=== PATIENT | male | born 1965 | race Caucasian/White ===

== ENCOUNTER 2020-04-05 15:32 | Outpatient (REF) | payer MEDICAID, SELFPAY | END 2020-04-05 15:33 | disposition home or self-care (01) | LOC: HO.LAB 15:32 | PROVIDERS: PCP Internal Medicine; Visit Provider Internal Medicine | DX: Z20.828 Contact with and (suspected) exposure to other viral communicable diseases (principal) | CPT/HCPCS: C9803; U0003 ==

== ENCOUNTER 2020-04-10 10:27 | Inpatient (IN) | payer MEDICAID, SELFPAY ==
[2020-04-10] VITALS (10 sets, daily range): BP systolic 120–149; BP diastolic 67–95; PULSE 84–98; RESP 14–18; TEMP 36.9–37.4; O2SAT 96–100; BMI 22.4
--- NOTE | 2020-04-10 10:55 | ECG_ITS ---
Test Reason : WEAKNESS Blood Pressure : / mmHG Vent. Rate : 086 BPM Atrial Rate : 086 BPM P-R Int : 174 ms QRS Dur : 100 ms QT Int : 406 ms P-R-T Axes : 071 -15 052 degrees QTc Int : 485 ms Normal sinus rhythm Left axis deviation Nonspecific T wave abnormality Low voltage QRS Abnormal ECG When compared with ECG of 24-MAY-2018 01:26, Heart rate has decreased Nonspecific T wave abnormality is new Referred By: John Landin Electronically Signed By:BEVERLEY SNOWDEN MD
--- NOTE | 2020-04-10 10:56 | CT_ITS ---
EXAMINATION: CT ABDOMEN AND PELVIS WITH CONTRAST CLINICAL INFORMATION: Abdominal pain, renal impairment. COMPARISON: CT scan of the pelvis dated 06/17/2019. TECHNIQUE: Multidetector volumetric images were obtained from the superior aspect of the liver through the pubic symphysis following administration 85 mL of Omnipaque 350 intravenous contrast. Sagittal and coronal reformatted images were obtained on the technologist's workstation. Oral contrast: No This CT examination was performed using dose optimization techniques as appropriate, variously including the following: *Automated exposure control *Adjustment of mA and/or kV according to patient size (this includes techniques or standardized protocols for targeted exams where dose is matched to indication/reason for exam; i.e. extremities or head) *Use of iterative reconstruction technique DLP: 626 mGy-cm FINDINGS: LUNG BASES: Clear lung bases. No pericardial or pleural effusions. LIVER, GALLBLADDER, AND BILIARY TREE: Diffuse decreased attenuation is seen with probable sparing posteriorly in the left lobe. Unremarkable gallbladder. PANCREAS: Unremarkable. SPLEEN: 13.7 cm without focal abnormality (image 118, series 5). ADRENAL GLANDS: Unremarkable. KIDNEYS AND URETERS: Several nonobstructing intrarenal calculi are seen bilaterally. No hydroureteronephrosis. BLADDER: Unremarkable. GASTROINTESTINAL TRACT: There is a small hiatal hernia. The remainder of the stomach is unremarkable. The small bowel and appendix are unremarkable. Moderate diverticulosis is seen in the sigmoid colon without surrounding abnormality. PERITONEUM: Moderate peritoneal ascites. ABDOMINAL WALL: No significant hernia is appreciated. LYMPH NODES: Multiple mildly enlarged retroperitoneal lymph nodes are seen. 2 infrarenal anterior aortocaval lymph nodes both measure 0.9 cm in short axis (image 95, series 5). VASCULAR: Mild atherosclerosis without significant ectasia. PELVIC VISCERA: Unremarkable. OSSEOUS STRUCTURES: No suspicious abnormality. CT/CT abdomen pelvis w con IMPRESSION: 1. Interval development of moderate peritoneal ascites. 2. Hepatic steatosis with probable focal sparing in the left lobe posteriorly. 3. Borderline splenic enlargement. 4. Several nonobstructing adrenal calculi bilaterally. 5. Mildly enlarged retroperitoneal lymphadenopathy is nonspecific, but may be reactive. No other causative abnormality is identified. 6. Moderate sigmoid diverticulosis without evidence for acute diverticulitis.
[2020-04-10] MEDS: ondansetron HCL 4 MG/2 ML VIAL IVPUSH (11:42)
[2020-04-10] MEDS: 0.9 % Sodium Chloride 500 ML 1000 ML IV (11:42)
[2020-04-10 11:43] LABS: Basophils Percent Auto 0.5 % (0-2); Eosinophils Percent Auto 0.5 % (0-4); Hematocrit 34.1 % (42-52); Hemoglobin 12.4 g/dl (14.0-18.0); Imm Gran Abs Auto 0.04 X10*3/uL (0.00-0.03); Imm Gran Pct Auto 0.5 % (0.0-0.4); Lymphocytes Absolute Auto 0.8 X10*3/uL (1.2-4.9); Lymphocytes Percent Auto 9.8 % (20-40); Mean Corpuscular HGB Conc 36.4 g/dl (31.0-36.0); Mean Corpuscular Hemoglobin 37.7 pg (27.0-33.0); Mean Corpuscular Volume 103.6 fL (80-98); Mean Platelet Volume 10.2 fL (9.4-12.4); Monocytes Percent Auto 13.3 % (2-11); Neutrophils Absolute Auto 5.8 X10*3/uL (2.0-8.3); Neutrophils Percent Auto 75.4 % (45-73); Platelet Count 236 X10*3/uL (160-400); Red Blood Count 3.29 X10*6/uL (4.60-5.80); Red Cell Distribution Width 13.3 % (11.0-16.0); White Blood Count 7.7 X10*3/uL (4.8-10.8)
--- NOTE | 2020-04-10 11:43 | PC.NURSE ---
PT'S MEDS SCANNED WHEN GIVEN. DID NOT SAVE
[2020-04-10 11:44] LABS: MANUAL DIFF FLAG NO
[2020-04-10 12:03] LABS: Lactic Acid 1.7 mmol/L (0.5-2.0)
[2020-04-10 12:11] LABS: Troponin-I High Sensitivity < 3.5 ng/L (<3.5-35.0)
[2020-04-10 12:32] LABS: INTERNATIONAL NORM RATIO 1.4 (0.9-1.1); Prothrombin Time 16.6 SEC (10.8-13.0)
[2020-04-10 12:34] LABS: Influenza A PCR NEGATIVE (Negative); Influenza B PCR NEGATIVE (Negative); Resp Syncy Virus RNA Qual PCR NEGATIVE (Negative); SARS COV2 PCR INHOUSE NEGATIVE (Negative)
[2020-04-10 12:35] LABS: Partial Thromboplastin Time 32.4 SEC (24.1-38.0)
[2020-04-10 12:46] LABS: Ethanol < 10 mg/dL
[2020-04-10 13:26] LABS: Alanine Aminotransferase 93 U/L (0-40); Albumin Level 2.6 g/dL (3.5-5.0); Alkaline Phosphatase 297 U/L (39-117); Anion Gap 12 (12-20); Aspartate Amino Transferase 243 U/L (5-37); Bilirubin Direct 9.9 mg/dL (0.0-0.5); Bilirubin Total 12.7 mg/dL (0.0-1.0); Blood Urea Nitrogen 6 mg/dL (9-16); Calcium 7.5 mg/dL (8.4-10.2); Carbon Dioxide 25 mmol/L (22-29); Chloride 96 mmol/L (96-108); Creatinine Clr Calc Pharmacy 130.9; Estimated Glomerular Filt Rate > 60; Glucose Random 95 mg/dL (60-115); Lipase 15 U/L (8-78); Potassium 3.1 mmol/l (3.3-5.1); Sodium 130 mmol/L (135-145); Total Protein 5.4 g/dL (6.5-8.0)
--- NOTE | 2020-04-10 14:02 | XR_ITS ---
EXAMINATION: XR CHEST CLINICAL INFORMATION: Shortness of breath COMPARISON: Previous chest x-ray March 2018 TECHNIQUE: Frontal view of the chest was obtained. FINDINGS: The cardiac and mediastinal contours are normal. The lungs are clear. There is no pleural effusion or pneumothorax. There may be old left anterior sixth and seventh rib fractures. XR/XR chest 1V IMPRESSION: No evidence for acute disease in the chest.
[2020-04-10] MEDS: iohexoL 350 MG/ML 100 ML INFUS..BTL IV (14:49)
[2020-04-10 16:51] LABS: B Type Natriuretic Peptide 105 pg/mL (<100)
--- NOTE | 2020-04-10 16:51 | ED.SOB ---
HPI - SOB/Dyspnea General Chief Complaint: Dyspnea Stated Complaint: difficulty breathing, vomiting Time Seen by Provider: 04/10/20 10:55 Source: patient Mode of arrival: ambulatory Limitations: no limitations History of Present Illness HPI Narrative: This is a 55-year-old male who presents ambulatory via triage but according to him he has no significant medical problems and his sheets complaint today is ongoing shortness of breath for the past 10 days or so with abdominal distension. In review of his EMR it appears that he has extensive history including history of PE in the past for which he was on Lovenox for, prothrombin G2 0210 a +ve, depression, alcohol dependence with continued alcohol use. He reports his last drink was five days ago and drinks 2 cups of wine He denies any chest pain. He does appear to be jaundice and distended abdomen. MD elicited complaint: shortness of breath Associated symptoms: denies other symptoms Treatment prior to arrival: none Related Data Allergies Allergy/AdvReac Type Severity Reaction Status Date / Time No Known Allergies Allergy Verified 04/10/20 10:48 [No Known Allergies*] Review of Systems Review of Systems: Constitutional: No Weight loss, No Fever, No Chills, No Night Sweats, No Fatigue, No Malaise ENT/Mouth: No Hearing loss, No Ear Pain, No Nasal Congestion, No Sinus Pain, No Hoarseness, No sore throat, No Rhinorrhea, No Swallowing Difficulty Eyes: No Eye Pain, No Swelling, No Redness, No Foreign Body, No Discharge, No Vision Changes Cardiovascular: No Chest Pain, No SOB, No Dyspnea on Exertion, No Orthopnea, No Edema, No Palpitations Respiratory: No Cough, No Sputum, No Wheezing, No Smoke Exposure, No Dyspnea Gastrointestinal: No Nausea, No Vomiting, No Diarrhea, No Constipation, + abdominal Pain, No Hematochezia, No Melena Genitourinary: no irregular bleeding, No Dysuria, No Urinary Frequency, No Hematuria, No Urinary Incontinence, No Urgency, No Flank Pain, No Urinary Flow Changes, No Hesitancy Musculoskeletal: No joint pain, No Myalgias, No Joint Swelling Skin: No Skin Lesions, No rash Neuro: No Weakness, No Numbness, No Paresthesias, No Loss of Consciousness, No Dizziness, No Headache Psych: No Anxiety/Panic, No Depression, No SI/HI/AH/VH, No Social Issues Heme/Lymph: No Bruising, No Bleeding,No Lymphadenopathy Endocrine: No Polyuria, No Polydipsia, No Temperature Intolerance Yes all other systems are reviewed and are negative [facility] Past Medical History Medical History (Updated 04/10/20 @ 17:33 by John Landin NP) No known health problems Social History Social History Alcohol intake: current Alcohol intake frequency: 3 or more drinks per day Smoking Status: Never smoker Use of substances other than those prescribed or required for medical reasons: No Advance Directives: No Advance Directives Information Provided: Yes Physical Exam Vital Signs: Vital Signs: Last Vital Signs Temp 99.2 F 04/10/20 15:50 Pulse 98 04/10/20 15:50 Resp 16 04/10/20 15:50 BP 149/95 H 04/10/20 15:50 Pulse Ox 99 04/10/20 15:50 Body Mass Index 22.4 Reviewed Const: General: cooperative and healthy appearing; No acute distress or intoxicated appearing Nutritional Appearance: average body habitus Orientation/consciousness: patient oriented x3 HENMT: Head: Yes normal to inspection Ears: hearing grossly normal bilaterally Eyes: Other: Jaundice General: appearance normal, both eyes and all related structures Visual Allison: normal visual allison by confrontation Neck: Neck: Yes normal visual inspection, No positive Brudzinski's sign, No positive Kernig's sign and No tender Thyroid: Thyroid normal Chest: Chest palpation & inspection: normal inspection of the chest Resp: Effort & Inspection: normal respiratory effort Auscultation: clear to auscultation bilaterally Cardio: Jugular venous distension: no JVD Rate: regular rate GI: Inspection: Yes distended Palpation (GI): nontender Percussion: Yes normal to percussion Auscultation: normal bowel sounds : General: Yes no CVA tenderness Back/Spine/Pelvis: Back: no CVA tenderness Skin: Other: Jaundice General skin exam: no rashes or lesions noted Neuro: General: patient oriented x3 Extrem: General: Yes normal to inspection Course Course Course Narrative: Labs consistent with acute alcoholic hepatitis significantly worsening from previous labs. Abdomen distended no pain or evidence of peritonitis. I do not suspect SBP. Given the significance in labs and bedside ultrasound guided paracentesis was done please refer to procedure note. Patient will be empirically covered for SBP however labs are not indicative this as he has no WBC count, no fever or exam consistent with peritonitis. Case discussed with GI, and hospitalist for admission. Procedures Paracentesis Time Out Performed: Yes Indication: Ascites Procedure: diagnostic paracentesis Location: RLQ Local Anesthetic: lidocaine 1% Amount of anesthesia used (mL): 10 Bedside Ultrasound Used: yes, real-time guidance Preparation: sterile prep and drape Fluid: clear Post Procedure Exam: awake, alert Complications: none MDM - SOB/Dyspnea Medical Records Attestation: I reviewed the patient's medical records. Lab Data Attestation: I reviewed the patient's lab results. Result diagrams: 04/10/20 11:32 04/10/20 12:20 Labs: Lab Results 04/10/20 04/10/20 04/10/20 Range/Units 11:31 11:31 11:32 WBC 7.7 (4.8-10.8) X10*3/uL RBC 3.29 L (4.60-5.80) X10*6/uL Hgb 12.4 L (14.0-18.0) g/dl Hct 34.1 L (42-52) % MCV 103.6 H (80-98) fL MCH 37.7 H (27.0-33.0) pg MCHC 36.4 H (31.0-36.0) g/dl RDW 13.3 (11.0-16.0) % Plt Count 236 (160-400) X10*3/uL MPV 10.2 (9.4-12.4) fL Immature Gran % (Auto) 0.5 H (0.0-0.4) % Neut % (Auto) 75.4 H (45-73) % Lymph % (Auto) 9.8 L (20-40) % [place] % (Auto) 13.3 H (2-11) % Eos % (Auto) 0.5 (0-4) % Baso % (Auto) 0.5 (0-2) % Lymph # (Auto) 0.8 L (1.2-4.9) X10*3/uL [place] # (Auto) 1.0 (0.1-1.2) X10*3/uL Eos # (Auto) 0.0 (0.0-0.4) X10*3/uL Baso # (Auto) 0.0 (0.0-0.2) X10*3/uL Abs Immat Gran (auto) 0.04 H (0.00-0.03) X10*3/uL Absolute Neuts (auto) 5.8 (2.0-8.3) X10*3/uL Absolute Nucleated RBC 0.000 (0.0-0.012) X10*3/uL Nucleated RBC % (auto) 0.0 (0.0-0.2) /100WBC PT INR APTT Sodium (135-145) mmol/L Potassium (3.3-5.1) mmol/l Chloride (96-108) mmol/L Carbon Dioxide (22-29) mmol/L Anion Gap (12-20) BUN (9-16) mg/dL Creatinine (0.5-1.4) mg/dL Estim Creat Clear Calc Estimated GFR Random Glucose (60-115) mg/dL Lactic Acid (0.5-2.0) mmol/L Calcium (8.4-10.2) mg/dL Total Bilirubin (0.0-1.0) mg/dL Direct Bilirubin (0.0-0.5) mg/dL AST (5-37) U/L ALT (0-40) U/L Alkaline Phosphatase (39-117) U/L Troponin I High Sens (<3.5-35.0) ng/L B-Natriuretic Peptide (<100) pg/mL Total Protein (6.5-8.0) g/dL Albumin (3.5-5.0) g/dL Lipase (8-78) U/L Ethyl Alcohol Cancelled Coronavirus (PCR) NEGATIVE (Negative) Hepatitis A IgM Ab Hep Bs Antigen Hep Bs Antibody Hep B Core Total Ab Hepatitis C Ab (EIA) Influenza Type A (PCR) NEGATIVE (Negative) Influenza Type B (PCR) NEGATIVE (Negative) RSV RNA Qual (PCR) NEGATIVE (Negative) 04/10/20 04/10/20 04/10/20 Range/Units 11:32 11:32 11:32 WBC (4.8-10.8) X10*3/uL RBC (4.60-5.80) X10*6/uL Hgb (14.0-18.0) g/dl Hct (42-52) % MCV (80-98) fL MCH (27.0-33.0) pg MCHC (31.0-36.0) g/dl RDW (11.0-16.0) % Plt Count (160-400) X10*3/uL MPV (9.4-12.4) fL Immature Gran % (Auto) (0.0-0.4) % Neut % (Auto) (45-73) % Lymph % (Auto) (20-40) % [place] % (Auto) (2-11) % Eos % (Auto) (0-4) % Baso % (Auto) (0-2) % Lymph # (Auto) (1.2-4.9) X10*3/uL [place] # (Auto) (0.1-1.2) X10*3/uL Eos # (Auto) (0.0-0.4) X10*3/uL Baso # (Auto) (0.0-0.2) X10*3/uL Abs Immat Gran (auto) (0.00-0.03) X10*3/uL Absolute Neuts (auto) (2.0-8.3) X10*3/uL Absolute Nucleated RBC (0.0-0.012) X10*3/uL Nucleated RBC % (auto) (0.0-0.2) /100WBC PT Cancelled INR Cancelled APTT Cancelled Sodium (135-145) mmol/L Potassium (3.3-5.1) mmol/l Chloride (96-108) mmol/L Carbon Dioxide (22-29) mmol/L Anion Gap (12-20) BUN (9-16) mg/dL Creatinine (0.5-1.4) mg/dL Estim Creat Clear Calc Estimated GFR Random Glucose (60-115) mg/dL Lactic Acid (0.5-2.0) mmol/L Calcium (8.4-10.2) mg/dL Total Bilirubin (0.0-1.0) mg/dL Direct Bilirubin (0.0-0.5) mg/dL AST (5-37) U/L ALT (0-40) U/L Alkaline Phosphatase (39-117) U/L Troponin I High Sens < 3.5 (<3.5-35.0) ng/L B-Natriuretic Peptide 105 H (<100) pg/mL Total Protein (6.5-8.0) g/dL Albumin (3.5-5.0) g/dL Lipase (8-78) U/L Ethyl Alcohol Coronavirus (PCR) (Negative) Hepatitis A IgM Ab Cancelled Hep Bs Antigen Cancelled Hep Bs Antibody Cancelled Hep B Core Total Ab Cancelled Hepatitis C Ab (EIA) Cancelled Influenza Type A (PCR) (Negative) Influenza Type B (PCR) (Negative) RSV RNA Qual (PCR) (Negative) 04/10/20 04/10/20 04/10/20 Range/Units 11:32 12:20 12:20 WBC (4.8-10.8) X10*3/uL RBC (4.60-5.80) X10*6/uL Hgb (14.0-18.0) g/dl Hct (42-52) % MCV (80-98) fL MCH (27.0-33.0) pg MCHC (31.0-36.0) g/dl RDW (11.0-16.0) % Plt Count (160-400) X10*3/uL MPV (9.4-12.4) fL Immature Gran % (Auto) (0.0-0.4) % Neut % (Auto) (45-73) % Lymph % (Auto) (20-40) % [place] % (Auto) (2-11) % Eos % (Auto) (0-4) % Baso % (Auto) (0-2) % Lymph # (Auto) (1.2-4.9) X10*3/uL [place] # (Auto) (0.1-1.2) X10*3/uL Eos # (Auto) (0.0-0.4) X10*3/uL Baso # (Auto) (0.0-0.2) X10*3/uL Abs Immat Gran (auto) (0.00-0.03) X10*3/uL Absolute Neuts (auto) (2.0-8.3) X10*3/uL Absolute Nucleated RBC (0.0-0.012) X10*3/uL Nucleated RBC % (auto) (0.0-0.2) /100WBC PT 16.6 H INR 1.4 H APTT 32.4 Sodium (135-145) mmol/L Potassium (3.3-5.1) mmol/l Chloride (96-108) mmol/L Carbon Dioxide (22-29) mmol/L Anion Gap (12-20) BUN (9-16) mg/dL Creatinine (0.5-1.4) mg/dL Estim Creat Clear Calc Estimated GFR Random Glucose (60-115) mg/dL Lactic Acid 1.7 (0.5-2.0) mmol/L Calcium (8.4-10.2) mg/dL Total Bilirubin (0.0-1.0) mg/dL Direct Bilirubin (0.0-0.5) mg/dL AST (5-37) U/L ALT (0-40) U/L Alkaline Phosphatase (39-117) U/L Troponin I High Sens (<3.5-35.0) ng/L B-Natriuretic Peptide (<100) pg/mL Total Protein (6.5-8.0) g/dL Albumin (3.5-5.0) g/dL Lipase (8-78) U/L Ethyl Alcohol < 10 Coronavirus (PCR) (Negative) Hepatitis A IgM Ab Hep Bs Antigen Hep Bs Antibody Hep B Core Total Ab Hepatitis C Ab (EIA) Influenza Type A (PCR) (Negative) Influenza Type B (PCR) (Negative) RSV RNA Qual (PCR) (Negative) 04/10/20 Range/Units 12:20 WBC (4.8-10.8) X10*3/uL RBC (4.60-5.80) X10*6/uL Hgb (14.0-18.0) g/dl Hct (42-52) % MCV (80-98) fL MCH (27.0-33.0) pg MCHC (31.0-36.0) g/dl RDW (11.0-16.0) % Plt Count (160-400) X10*3/uL MPV (9.4-12.4) fL Immature Gran % (Auto) (0.0-0.4) % Neut % (Auto) (45-73) % Lymph % (Auto) (20-40) % [place] % (Auto) (2-11) % Eos % (Auto) (0-4) % Baso % (Auto) (0-2) % Lymph # (Auto) (1.2-4.9) X10*3/uL [place] # (Auto) (0.1-1.2) X10*3/uL Eos # (Auto) (0.0-0.4) X10*3/uL Baso # (Auto) (0.0-0.2) X10*3/uL Abs Immat Gran (auto) (0.00-0.03) X10*3/uL Absolute Neuts (auto) (2.0-8.3) X10*3/uL Absolute Nucleated RBC (0.0-0.012) X10*3/uL Nucleated RBC % (auto) (0.0-0.2) /100WBC PT INR APTT Sodium 130 L (135-145) mmol/L Potassium 3.1 L (3.3-5.1) mmol/l Chloride 96 (96-108) mmol/L Carbon Dioxide 25 (22-29) mmol/L Anion Gap 12 (12-20) BUN 6 L (9-16) mg/dL Creatinine 0.67 (0.5-1.4) mg/dL Estim Creat Clear Calc 130.9 Estimated GFR > 60 Random Glucose 95 (60-115) mg/dL Lactic Acid (0.5-2.0) mmol/L Calcium 7.5 L (8.4-10.2) mg/dL Total Bilirubin 12.7 H (0.0-1.0) mg/dL Direct Bilirubin 9.9 H (0.0-0.5) mg/dL AST 243 H (5-37) U/L ALT 93 H (0-40) U/L Alkaline Phosphatase 297 H (39-117) U/L Troponin I High Sens (<3.5-35.0) ng/L B-Natriuretic Peptide (<100) pg/mL Total Protein 5.4 L (6.5-8.0) g/dL Albumin 2.6 L (3.5-5.0) g/dL Lipase 15 (8-78) U/L Ethyl Alcohol Coronavirus (PCR) (Negative) Hepatitis A IgM Ab Hep Bs Antigen Hep Bs Antibody Hep B Core Total Ab Hepatitis C Ab (EIA) Influenza Type A (PCR) (Negative) Influenza Type B (PCR) (Negative) RSV RNA Qual (PCR) (Negative) Discharge Plan Discharge Clinical Impression: Acute alcoholic hepatitis, Cirrhosis of liver, Ascites Patient Disposition: Admitted as Observation
--- NOTE | 2020-04-10 17:24 | P.HPHOSP_ITS ---
History of Present Illness Date of Service: 04/10/20 <Codie Ontiveros NP - Last Filed: 04/10/20 18:25> Chief Complaint: Abdominal pain, shortness of breath <Codie Ontiveros NP - Last Filed: 04/10/20 18:25> 55 year old man presenting with abdominal pain and shortness of breath over the last 2 weeks. He reported poor appetite, and increasing size of abdomen with shortness of breath. He denied weakness, confusion, dizziness, muscle cramps, chest pain, fever, nausea, vomiting or diarrhea. He reports a long history of alcohol abuse and currently drinks 2 glasses of wine a day and had his last drink last Saturday. He denied any withdrawals. Abdominal CT showed interval development of moderate peritoneal ascites and Hepatic steatosis with probable focal sparing in the left lobe posteriorly. Elevated liver enzymes noted. AST 243, ALT 93, Total bilirubin 12.7, albumin 2.6. He did not have fever or leukocytosis however, he had abdominal pain therefore he was tapped to rule out SBP. He was given a dose of Rocephin, zofran and albumin in the ED. He will be admitted for further management of hepatitis with ascites likely related from alcohol abuse. <Codie Ontiveros NP - Last Filed: 04/10/20 18:25> Review of Systems Review of Systems: Denies any recent fever chills or decrease in appetite respiratory See HPI cardiovascular is adjustment of any PND or edema gastrointestinal See HPI genitourinary denies any dysuria frequency or hematuria musculoskeletal denies any joint pain or swelling neuropsych denies any weakness or seizures all other systems reviewed are negative <Codie Ontiveros NP - Last Filed: 04/10/20 18:25> [facility] Medical History: Medical History No known health problems <Codie Ontiveros NP - Last Filed: 04/10/20 18:25> Social History: Social History Household Members: Other Housing: House Do you presently have visiting nurse or other home services: No Alcohol intake: current Alcohol intake frequency: 3 or more drinks per day Smoking Status: Never smoker Use of substances other than those prescribed or required for medical reasons: Yes Currently Displaying Signs/Symptoms of Drug Intoxication Withdrawal: No Have you been hit, kicked, punched, or otherwise hurt by someone within the past year? If so, by whom?: No Do you feel safe in your current relationship?: Yes Is there a partner from a previous relationship who is making you feel unsafe now?: No Are you made to feel afraid or neglected: No Advance Directives: No Advance Directives Information Provided: Yes Do you have thoughts of harming others: None Do you have a plan to hurt others: No Plan Recently lost weight without trying: No service: No Current occupational status: employed <Codie Ontiveros NP - Last Filed: 04/10/20 18:25> Meds Allergies/Adverse reactions: Allergies Allergy/AdvReac Type Severity Reaction Status Date / Time No Known Allergies Allergy Verified 04/10/20 10:48 [No Known Allergies*] <Codie Ontiveros NP - Last Filed: 04/10/20 18:25> Home medications: Home Medications Medication Instructions Recorded Confirmed Type Vitamin B-1 04/10/20 History Vitamin B-12 04/10/20 History Vitamin B-6 04/10/20 History pantoprazole 04/10/20 History <Codie Ontiveros NP - Last Filed: 04/10/20 18:25> Physical Exam Vital Signs and Narrative: Vital Signs: Last Vital Signs Temp 99.2 F 04/10/20 15:50 Pulse 98 04/10/20 15:50 Resp 16 04/10/20 15:50 BP 149/95 H 04/10/20 15:50 Pulse Ox 99 04/10/20 15:50 Body Mass Index 22.4 <Codie Ontiveros NP - Last Filed: 04/10/20 18:25> Appearing in no acute distress head is normocephalic atraumatic eyes pupils are PERRLA sclera is anicteric mouth throat mucous membranes are intact and moist neck is supple no lymphadenopathy, no JVD noted lung sounds are clear to auscultation heart regular rate rhythm, clear S1, S2 positive bowel sounds, abdomen is soft, nontender neuro patient is alert x3, no focal deficits, no encephalopathy noted <Codie Ontiveros NP - Last Filed: 04/10/20 18:25> Results Labs CBC and Chem 7: : 04/13/20 05:57 04/13/20 05:57 <Codie Ontiveros NP - Last Filed: 04/10/20 18:25> Labs: Laboratory Results - last 24 hr 04/10/20 04/10/20 04/10/20 11:31 11:31 11:32 MCV 103.6 H MCH 37.7 H MCHC 36.4 H RDW 13.3 Plt Count 236 MPV 10.2 Immature Gran % (Auto) 0.5 H Neut % (Auto) 75.4 H Lymph % (Auto) 9.8 L [place]verse % (Auto) 13.3 H Eos % (Auto) 0.5 Baso % (Auto) 0.5 Lymph # (Auto) 0.8 L Traverse # (Auto) 1.0 Eos # (Auto) 0.0 Baso # (Auto) 0.0 Abs Immat Gran (auto) 0.04 H Absolute Neuts (auto) 5.8 Absolute Nucleated RBC 0.000 Nucleated RBC % (auto) 0.0 PT INR APTT Anion Gap Estim Creat Clear Calc Estimated GFR Random Glucose Lactic Acid Calcium Total Bilirubin Direct Bilirubin AST ALT Alkaline Phosphatase Troponin I High Sens B-Natriuretic Peptide Total Protein Albumin Lipase Ethyl Alcohol Cancelled Coronavirus (PCR) NEGATIVE Hepatitis A IgM Ab Hep Bs Antigen Hep Bs Antibody Hep B Core Total Ab Hepatitis C Ab (EIA) Influenza Type A (PCR) NEGATIVE Influenza Type B (PCR) NEGATIVE RSV RNA Qual (PCR) NEGATIVE 04/10/20 04/10/20 04/10/20 11:32 11:32 11:32 MCV MCH MCHC RDW Plt Count MPV Immature Gran % (Auto) Neut % (Auto) Lymph % (Auto) Traverse % (Auto) Eos % (Auto) Baso % (Auto) Lymph # (Auto) Traverse # (Auto) Eos # (Auto) Baso # (Auto) Abs Immat Gran (auto) Absolute Neuts (auto) Absolute Nucleated RBC Nucleated RBC % (auto) PT Cancelled INR Cancelled APTT Cancelled Anion Gap Estim Creat Clear Calc Estimated GFR Random Glucose Lactic Acid Calcium Total Bilirubin Direct Bilirubin AST ALT Alkaline Phosphatase Troponin I High Sens < 3.5 B-Natriuretic Peptide 105 H Total Protein Albumin Lipase Ethyl Alcohol Coronavirus (PCR) Hepatitis A IgM Ab Cancelled Hep Bs Antigen Cancelled Hep Bs Antibody Cancelled Hep B Core Total Ab Cancelled Hepatitis C Ab (EIA) Cancelled Influenza Type A (PCR) Influenza Type B (PCR) RSV RNA Qual (PCR) 04/10/20 04/10/20 04/10/20 11:32 12:20 12:20 MCV MCH MCHC RDW Plt Count MPV Immature Gran % (Auto) Neut % (Auto) Lymph % (Auto) Traverse % (Auto) Eos % (Auto) Baso % (Auto) Lymph # (Auto) Traverse # (Auto) Eos # (Auto) Baso # (Auto) Abs Immat Gran (auto) Absolute Neuts (auto) Absolute Nucleated RBC Nucleated RBC % (auto) PT 16.6 H INR 1.4 H APTT 32.4 Anion Gap Estim Creat Clear Calc Estimated GFR Random Glucose Lactic Acid 1.7 Calcium Total Bilirubin Direct Bilirubin AST ALT Alkaline Phosphatase Troponin I High Sens B-Natriuretic Peptide Total Protein Albumin Lipase Ethyl Alcohol < 10 Coronavirus (PCR) Hepatitis A IgM Ab Hep Bs Antigen Hep Bs Antibody Hep B Core Total Ab Hepatitis C Ab (EIA) Influenza Type A (PCR) Influenza Type B (PCR) RSV RNA Qual (PCR) 04/10/20 12:20 MCV MCH MCHC RDW Plt Count MPV Immature Gran % (Auto) Neut % (Auto) Lymph % (Auto) Traverse % (Auto) Eos % (Auto) Baso % (Auto) Lymph # (Auto) Traverse # (Auto) Eos # (Auto) Baso # (Auto) Abs Immat Gran (auto) Absolute Neuts (auto) Absolute Nucleated RBC Nucleated RBC % (auto) PT INR APTT Anion Gap 12 Estim Creat Clear Calc 130.9 Estimated GFR > 60 Random Glucose 95 Lactic Acid Calcium 7.5 L Total Bilirubin 12.7 H Direct Bilirubin 9.9 H AST 243 H ALT 93 H Alkaline Phosphatase 297 H Troponin I High Sens B-Natriuretic Peptide Total Protein 5.4 L Albumin 2.6 L Lipase 15 Ethyl Alcohol Coronavirus (PCR) Hepatitis A IgM Ab Hep Bs Antigen Hep Bs Antibody Hep B Core Total Ab Hepatitis C Ab (EIA) Influenza Type A (PCR) Influenza Type B (PCR) RSV RNA Qual (PCR) <Codie Ontiveros NP - Last Filed: 04/10/20 18:25> Imaging Radiologist's Impressions: Impressions Abdomen/Pelvis CT 04/10/20 10:56 IMPRESSION: 1. Interval development of moderate peritoneal ascites. 2. Hepatic steatosis with probable focal sparing in the left lobe posteriorly. 3. Borderline splenic enlargement. 4. Several nonobstructing adrenal calculi bilaterally. 5. Mildly enlarged retroperitoneal lymphadenopathy is nonspecific, but may be reactive. No other causative abnormality is identified. 6. Moderate sigmoid diverticulosis without evidence for acute diverticulitis. Chest X-Ray 04/10/20 14:02 IMPRESSION: No evidence for acute disease in the chest. <Codie Ontiveros NP - Last Filed: 04/10/20 18:25> Assessment and Plan (1) Ascites: Status: Acute <Codie Ontiveros NP - Last Filed: 04/10/20 18:25> (2) Acute alcoholic hepatitis: Status: Acute <Codie Ontiveros NP - Last Filed: 04/10/20 18:25> 55 year old man admitted with acute hepatitis related to alcohol use. Patient reports no previous workup for alcoholic liver disease and no history of ascites in the past. Alcoholic hepatitis. Seems likely related to chronic alcohol abuse, no confusion or encephalopathy noted. Check Hepatitis panel, GI consult. Discussed the importance of alcohol cessation. Ascites. 3.5 liters taken in the ED. Culture sent. Received one dose of Rocephin empirically for SBP. Hyponatremia. Likely from fluid retention/ascites, hypokalemia. Recheck sodium this evening. If worsening is noted consider nephrology consultation. Hypokalemia. Repleted. Follow. Coagulopathy. Likely related to liver disease. Alcohol abuse. No signs of withdrawal. Will place on CIWA, last drink on Saturday. DVT prophylaxis with Mechanical compression boots. 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 Dr. Jimenez Full code <Codie Ontiveros NP - Last Filed: 04/10/20 18:25> (3) Cirrhosis of liver: Status: Acute <Codie Ontiveros NP - Last Filed: 04/10/20 18:25>
[2020-04-10 17:53] LABS: MN% 74.2 %; PMN% 25.8 %; WBC Peritoneal Fluid 0.239 X10*3/uL
[2020-04-10 18:00] LABS: RBC Peritoneal Fluid < 0.002 X10*6/uL
--- NOTE | 2020-04-10 18:05 | P.EN_ITS ---
Event Note Date of Service: 04/10/20 Event Note: Addendum to H and P by Mid-level Provider I saw and examined the patient and participated in the [place] portion of the E/M service. I agree with the history and exam as documented by [employer]. Patient w/ history of heavy drinking and presented with jaundice, abdominal distention.. He has ascietes and elevated LFTs and bili and may have acute hepatitis. Exam: jaudice, sclera icteris, abdominal distention, +fluid wave. He likely has cirrhosis, acute hepatitis, ascites and rule SBP. Plan: paracentesis, GI eval, avoid tyelenol, US of abd, follow INR level. Otherwise, I agree with assessment and plan as written in H and P by midlevel.
[2020-04-10 18:29] LABS: BF Shift QC OK YES; Man Diluent Bkgrd OK YES
[2020-04-10 18:29] LABS: Magnesium 1.2 mg/dL (1.6-2.6)
[2020-04-10 18:40] LABS: Lymphocyte Peritoneal Fl 16 %; Monocytes Peritoneal Fl 30 %; Neutrophils Peritoneal Fluid 12 %
[2020-04-10 18:41] LABS: Other Peritioneal Fl 42 %
[2020-04-10] MEDS: cefTRIAXone sodium 1 GM in 0.9 % Sodium Chloride 50 ML IV (19:42)
[2020-04-10] MEDS: Albumin Human 25 % 100 ML IV ×2 (20:21→21:42)
[2020-04-10] MEDS: 0.9 % Sodium Chloride Flush 3 ML SYRINGE IVFLUSH (22:35)
[2020-04-10] MEDS: Potassium Chloride ER 20 MEQ TAB.ER.PRT 40 MEQ PO (22:35)
[2020-04-10 23:38] LABS: Sodium 131 mmol/L (135-145)
[2020-04-10] MEDS: diphenhydrAMINE HCL 50 MG/ML VIAL 25 MG IVPUSH (23:38)
[2020-04-11] VITALS (7 sets, daily range): BP systolic 110–123; BP diastolic 57–72; PULSE 70–83; RESP 16–18; TEMP 36.9–37.3; O2SAT 95–98
[2020-04-11 00:41] LABS: Osmolality Urine 606 mosm/kg (373-1093)
[2020-04-11 00:47] LABS: Sodium Urine Random < 20.0 mmol/L
[2020-04-11 00:53] LABS: Amphetamine Screen Urine Not Detected (Not Detect); Barbiturates, Urine Not Detected (Not Detect); Benzodiazepines Screen Urine Not Detected (Not Detect); Cannabinoid Screen Urine Not Detected (Not Detect); Cocaine Screen Urine Not Detected (Not Detect); Opiate Screen Urine Not Detected (Not Detect); Phencyclidine Screen Urine Not Detected (Not Detect)
[2020-04-11] MEDS: Omeprazole 20 MG CAPSULE.DR PO (06:10)
[2020-04-11 06:51] LABS: Basophils Percent Auto 0.3 % (0-2); Eosinophils Absolute Auto 0.1 X10*3/uL (0.0-0.4); Eosinophils Percent Auto 1.4 % (0-4); Hematocrit 29.1 % (42-52); Hemoglobin 10.5 g/dl (14.0-18.0); Imm Gran Abs Auto 0.04 X10*3/uL (0.00-0.03); Imm Gran Pct Auto 0.6 % (0.0-0.4); Lymphocytes Absolute Auto 0.7 X10*3/uL (1.2-4.9); Lymphocytes Percent Auto 10.9 % (20-40); MANUAL DIFF FLAG SCAN; Mean Corpuscular HGB Conc 36.1 g/dl (31.0-36.0); Mean Corpuscular Hemoglobin 37.4 pg (27.0-33.0); Mean Corpuscular Volume 103.6 fL (80-98); Mean Platelet Volume 10.7 fL (9.4-12.4); Monocytes Absolute Auto 0.9 X10*3/uL (0.1-1.2); Monocytes Percent Auto 14.6 % (2-11); Neutrophils Absolute Auto 4.6 X10*3/uL (2.0-8.3); Neutrophils Percent Auto 72.2 % (45-73); Platelet Count 195 X10*3/uL (160-400); Red Blood Count 2.81 X10*6/uL (4.60-5.80); Red Cell Distribution Width 13.8 % (11.0-16.0); SCAN SMEAR FLAG 1; White Blood Count 6.3 X10*3/uL (4.8-10.8)
[2020-04-11 07:00] LABS: INTERNATIONAL NORM RATIO 1.4 (0.9-1.1); Prothrombin Time 17.1 SEC (10.8-13.0)
[2020-04-11 07:31] LABS: Alanine Aminotransferase 77 U/L (0-40); Albumin Level 2.7 g/dL (3.5-5.0); Alkaline Phosphatase 229 U/L (39-117); Anion Gap 11 (12-20); Aspartate Amino Transferase 204 U/L (5-37); Bilirubin Direct 10.3 mg/dL (0.0-0.5); Bilirubin Total 13.3 mg/dL (0.0-1.0); Blood Urea Nitrogen 8 mg/dL (9-16); Calcium 7.7 mg/dL (8.4-10.2); Carbon Dioxide 25 mmol/L (22-29); Chloride 100 mmol/L (96-108); Creatinine Clr Calc Pharmacy 123.5; Estimated Glomerular Filt Rate > 60; Glucose Random 88 mg/dL (60-115); Potassium 3.5 mmol/l (3.3-5.1); Sodium 132 mmol/L (135-145); Total Protein 5.1 g/dL (6.5-8.0)
[2020-04-11 07:35] LABS: Albumin Peritoneal Fluid 1.5
[2020-04-11 07:36] LABS: Amylase Peritoneal Fluid 14; Glucose Peritoneal Fluid 110; LDH Peritoneal Fluid 85; Total Protein Peritoneal Fluid 2.7
[2020-04-11 07:47] LABS: SLIDE REVIEW VERIFIED
[2020-04-11] MEDS: 0.9 % Sodium Chloride Flush 3 ML SYRINGE IVFLUSH ×3 (07:53→23:51)
[2020-04-11 08:06] LABS: HBc Num1 0.15 S/CO (0.00-0.79); Hepatitis B Core Antibody Nonreactive (Nonreactive); Hepatitis B Surface Antigen Negative (Negative)
[2020-04-11 08:28] LABS: ~Hepatitis B Surface Antibody NONREACTIVE (Nonreactive); ~Hepatitis C Antibody Nonreactive (Nonreactive)
[2020-04-11] MEDS: Magnesium Sulfate/H2O 2 GM/50 ML PIGGYBACK IV ×2 (08:58→17:48)
--- NOTE | 2020-04-11 09:50 | MHC.CM.PN ---
Pt reports he lives with his mother and is independent with all care and mobility. Pt denies the use of DME and has no services. Pt has a HCP on file that he reports is still accurate. pt confirms his PCP is Fernando Martin. Current DC plan is home with no services. Pt will self arrange transportation.
[2020-04-11 12:21] LABS: Urine Blood NEG (NEG); Urine Protein 1+ MG/DL (NEG-TRACE)
[2020-04-11 12:33] LABS: Appearance Urine CLOUDY; Color Urine AMBER
[2020-04-11 12:36] LABS: Bacteria Urine TRACE /LPF; Hyaline Casts Urine 0-2 /LPF; Mucus Urine 1+ /LPF; RBC Urine 0-2 /HPF (0); Squamous Epithelial Cell Urine TRACE /LPF; WBC Urine 0-2 /HPF (0-4)
--- NOTE | 2020-04-11 15:25 | PM.EVENT ---
Event Note Date of Service: 04/11/20 Event Note: GI consult dictated. Alcoholic hepatitis with ascites. Advised pt to avoid alcohol. Begin lasix and aldactone for ascites. Monitor electrolytes. Repeat paracentesis as needed for discomfort.
--- NOTE | 2020-04-11 15:52 | P.PNIM_ITS ---
Subjective Subjective Date of Service: 04/11/20 Interval History: patient resting comfortably in bed offers no acute complaints of abdominal pain, no nausea vomiting tolerating diet had 2 loose watery stools this morning. Review of Systems General no headache , no dizziness, no fever chills. CVS no chest pain, no palpitation. Respiratory no cough, no sputum production no respiratory distress. Gastrointestinal no nausea ,no vomiting, no abdominal pain, complaining of loose watery stool Physical Exam Vital Signs: Vital Signs: Last Vital Signs Temp 98.8 F 04/11/20 15:19 Pulse 79 04/11/20 15:19 Resp 18 04/11/20 15:19 BP 119/68 04/11/20 15:19 Pulse Ox 96 04/11/20 15:19 Body Mass Index 22.4 General patient resting comfortably,no acute distress. Eyes icteric sclera Neck is supple no JVD. CVS regular rate rhythm, Respiratory lungs clear to auscultation, no respiratory distress, Gastrointestinal abdomen soft, nontender, distended, bowel sounds audible Extremities no clubbing cyanosis or edema. Neuro nonfocal Skin no rash,jaundiced Objective Data Current Medications Generic Name Dose Route Start Last Admin Trade Name Freq PRN Reason Stop Dose Admin Furosemide 40 mg 04/11/20 15:30 Furosemide 40 Mg Tablet PO DAILY [facility] Protocol Omeprazole 20 mg 04/11/20 06:30 04/11/20 06:10 Omeprazole 20 Mg Capsule.Dr PO 20 mg DAILY@0630 [facility] Administration Ondansetron HCl 4 mg 04/10/20 22:10 Ondansetron Hcl 4 Mg/2 Ml Vial IVPUSH Q8H PRN Nausea and Vomiting Pharmacy Consult 1 each 04/10/20 10:58 Consult Rx Perform Med Rec MISCELLANE ONCE PRN Consult order Sodium Chloride 3 ml 04/11/20 00:00 04/11/20 07:53 0.9 % Sodium Chloride Flush 3 Ml Syringe IVFLUSH 3 ml QSHIFT [facility] Administration Spironolactone 100 mg 04/11/20 15:30 Spironolactone 25 Mg Tablet PO DAILY [facility] Protocol Labs CBC & Chem 7: 04/11/20 05:36 04/11/20 05:36 Microbiology Microbiology Results: Microbiology 04/10/20 12:20 Blood - Venous Blood Culture - Preliminary No growth after 24 hours. 04/10/20 12:20 Blood - Venous Blood Culture - Preliminary No growth after 24 hours. Assessment and Plan (1) Acute alcoholic hepatitis: Status: Acute (2) Cirrhosis of liver: Status: Acute (3) Ascites: Status: Acute Assessment and Plan: 55 year old man admitted with acute hepatitis related to alcohol use. Patient reports no previous workup for alcoholic liver disease and no history of ascites in the past. acute Alcoholic hepatitis. likely related to chronic alcohol abuse, no confusion or encephalopathy , noted to have worsening of total and direct bili continue supportive care strongly advised to abstain from alcohol, INR 1.4, albumin 2.7 suggestive of poor synthetic function of liver follow labs closely give vitamin K and protein shakes Ascites. patient underwent paracentesis in emergency room 3.5 liters of fluid removed fluid cell count not suggestive of SBP, patient seen by Gastroenterology and started on Lasix and Aldactone Hyponatremia. Likely from fluid retention/ascites, sodium improving from 130- 132 Hypokalemia. repleted and improved to 3.5 continue to follow BMP while being diuresed Hypomagnesemia likely due to alcohol abuse and poor nutrition magnesium 1.2 will give IV magnesium and follow labs Coagulopathy. Likely related to liver disease will give vitamin K. Alcohol abuse. No signs of withdrawal. continue CIWA, last drink on Saturday. DVT prophylaxis with Mechanical compression boots.
--- NOTE | 2020-04-11 16:05 | CONS_ITS ---
DATE OF SERVICE: 04/11/2020 REFERRING PHYSICIAN: Lei Jimenez MD REASON FOR CONSULTATION: Alcoholic hepatitis with ascites. HISTORY OF PRESENT ILLNESS: The patient is a 55-year-old man, who was admitted to the hospital after presenting to the emergency room yesterday with complaints of abdominal pain and shortness of breath. Symptoms began about 2 weeks prior to admission. He had noticed increasing girth in his abdomen to the point where he was not keeping food down and vomiting after eating. This became associated with generalized abdominal discomfort, but not a fever. He noticed his urine was dark and that his stools were somewhat light. He does have a history of alcohol abuse and states his last drink was 5 days ago when he had 2 glasses of wine. He states he has not had anything to drink since then. A blood alcohol level on admission was less than 10. He was evaluated with laboratory studies, which showed elevation of his liver function tests in a pattern consistent with alcohol and CT scanning was obtained, which shows ascites. He was evaluated with paracentesis, which showed no evidence of SBP and removed 3.2 L of fluid. This improved his abdominal distention and ability to eat. PAST MEDICAL HISTORY: 1. Alcohol abuse. 2. 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 3. Depression. CURRENT MEDICATIONS: Current medication list is reviewed in the chart. ALLERGIES: THERE ARE NONE REPORTED. FAMILY HISTORY: This is reviewed with the patient and is noncontributory. SOCIAL HISTORY: Alcohol use is as noted above. He denies tobacco use. REVIEW OF SYSTEMS: SKIN: No pruritus. HEENT: Negative. CARDIOPULMONARY: He denies shortness of breath or chest pain currently. GASTROINTESTINAL: As above. GENITOURINARY: Negative. NEUROPSYCHIATRIC: Positive for depression. PAST SURGICAL HISTORY: Includes hernia repair. PHYSICAL EXAMINATION: GENERAL: Shows a male, lying in bed. VITAL SIGNS: Reviewed and are stable. SKIN: Icteric. HEENT: Scleral icterus. NECK: Without lymphadenopathy or thyromegaly. LUNGS: Clear. HEART: Regular rate and rhythm, S1, S2. No murmur. ABDOMEN: Distended. There is a Band-Aid in place over the paracentesis site. Bowel sounds are present. No organomegaly is noted. EXTREMITIES: Without edema. LABORATORY DATA: Shows a white blood cell count of 6.3, hematocrit 29, platelet count 195. Total bilirubin is elevated at 13.3 with an AST of 204 and an ALT of 77, alkaline phosphatase is 229. CT scanning is reviewed. IMPRESSION: Alcoholic hepatitis with ascites. I discussed with him the need to avoid alcohol. He appears to understand this. I would recommend starting diuretic therapy with furosemide 40 mg daily and spironolactone 100 mg daily. I would recommend he avoid excess sodium. He does not appear to be withdrawing from alcohol at this time. Thanks for asking me to see him. I will follow him in the hospital with you. MD ELMER Mendoza/HERNAN / [phone]
[2020-04-11] MEDS: Furosemide 40 MG TABLET PO (16:44)
[2020-04-11] MEDS: Spironolactone 25 MG TABLET 100 MG PO (16:44)
[2020-04-11] MEDS: Phytonadione (Vit K1) Oral 10 MG/ML AMPUL 5 MG PO (17:47)
[2020-04-12] VITALS (7 sets, daily range): BP systolic 101–118; BP diastolic 66–80; PULSE 71–84; RESP 18; TEMP 36.8–37.7; O2SAT 96–98
[2020-04-12] MEDS: Omeprazole 20 MG CAPSULE.DR PO (06:06)
[2020-04-12 07:11] LABS: Alanine Aminotransferase 87 U/L (0-40); Albumin Level 2.7 g/dL (3.5-5.0); Alkaline Phosphatase 237 U/L (39-117); Anion Gap 10 (12-20); Aspartate Amino Transferase 219 U/L (5-37); Bilirubin Direct 11.7 mg/dL (0.0-0.5); Bilirubin Total 15.7 mg/dL (0.0-1.0); Blood Urea Nitrogen 9 mg/dL (9-16); Calcium 7.8 mg/dL (8.4-10.2); Carbon Dioxide 27 mmol/L (22-29); Chloride 99 mmol/L (96-108); Estimated Glomerular Filt Rate > 60; Glucose Random 94 mg/dL (60-115); Magnesium 1.8 mg/dL (1.6-2.6); Potassium 3.4 mmol/l (3.3-5.1); Sodium 133 mmol/L (135-145); Total Protein 5.2 g/dL (6.5-8.0)
[2020-04-12] MEDS: Furosemide 40 MG TABLET PO (07:49)
[2020-04-12] MEDS: Spironolactone 25 MG TABLET 100 MG PO (07:49)
[2020-04-12] MEDS: 0.9 % Sodium Chloride Flush 3 ML SYRINGE IVFLUSH ×3 (07:53→23:23)
--- NOTE | 2020-04-12 14:09 | HO.PM.IMPN ---
Subjective Subjective Date of Service: 04/12/20 Interval History: patient denies acute symptoms of abdominal pain no nausea vomiting has been urinating frequently since yesterday, tolerating diet, no acute issues overnight. stool more formed this morning. Review of Systems General no headache , no dizziness, no fever chills. CVS no chest pain, no palpitation. Respiratory no cough, no sob. Gastrointestinal no nausea, no vomiting, no abdominal pain Physical Exam Vital Signs: Vital Signs: Last Vital Signs Temp 99.2 F 04/12/20 12:00 Pulse 84 04/12/20 12:00 Resp 18 04/12/20 12:00 BP 116/77 04/12/20 12:00 Pulse Ox 98 04/12/20 12:00 Body Mass Index 22.4 General patient resting comfortably in no acute distress. Eyes icteric sclera Neck is supple no JVD. CVS regular rate rhythm, Respiratory lungs clear , no respiratory distress. Gastrointestinal abdomen distended, nontender, bowel sounds audible. Extremities no edema. Neuro nonfocal . Skin jaundice Objective Data Current Medications Generic Name Dose Route Start Last Admin Trade Name Freq PRN Reason Stop Dose Admin Furosemide 40 mg 04/11/20 15:30 04/12/20 07:49 Furosemide 40 Mg Tablet PO 40 mg DAILY [facility] Administration Protocol Omeprazole 20 mg 04/11/20 06:30 04/12/20 06:06 Omeprazole 20 Mg Capsule. PO 20 mg DAILY@0630 [facility] Administration Ondansetron HCl 4 mg 04/10/20 22:10 Ondansetron Hcl 4 Mg/2 Ml Vial IVPUSH Q8H PRN Nausea and Vomiting Pharmacy Consult 1 each 04/10/20 10:58 Consult Rx Perform Med Rec MISCELLANE ONCE PRN Consult order Sodium Chloride 3 ml 04/11/20 00:00 04/12/20 07:53 0.9 % Sodium Chloride Flush 3 Ml Syringe IVFLUSH 3 ml QSHIFT [facility] Administration Spironolactone 100 mg 04/11/20 15:30 04/12/20 07:49 Spironolactone 25 Mg Tablet PO 100 mg DAILY [facility] Administration Protocol Labs CBC & Chem 7: 04/11/20 05:36 04/12/20 05:47 Microbiology Microbiology Results: Microbiology 04/10/20 12:20 Blood - Venous Blood Culture - Preliminary No growth after 24 hours. 04/10/20 12:20 Blood - Venous Blood Culture - Preliminary No growth after 24 hours. Assessment and Plan (1) Acute alcoholic hepatitis: Status: Acute (2) Cirrhosis of liver: Status: Acute (3) Ascites: Status: Acute (4) Alcohol abuse: Status: Acute Assessment and Plan: 55 year old man admitted with acute hepatitis related to alcohol use. Patient reports no previous workup for alcoholic liver disease and no history of ascites in the past. acute Alcoholic hepatitis. likely related to chronic alcohol abuse, no confusion or encephalopathy , worsening of total and direct bili , likely related to cholestasis, patient remains asymptomatic tolerating diet no abdominal pain no nausea, no vomiting, continue supportive care strongly advised to abstain from alcohol, INR 1.4, albumin 2.7 suggestive of poor synthetic function of liver follow labs closely,s/p vitamin K , continue protein shakes, follow LFTs and if continue to rise will discuss further workup with GI, CT abdomen and pelvis obtained on admission showed no biliary obstruction. Ascites. patient underwent paracentesis in emergency room 3.5 liters of fluid removed fluid cell count not suggestive of SBP, patient seen by Gastroenterology and started on Lasix and Aldactone electrolytes stable, continue to follow BMP. Hyponatremia. Likely from fluid retention/ascites, sodium improving from 130-133 Hypokalemia. repleted and improved to 3.5 continue to follow BMP while being diuresed Hypomagnesemia likely due to alcohol abuse and poor nutrition magnesium improved from 1.2 to 1.8 after magnesium replacement. Coagulopathy. Likely related to liver disease s/p vitamin K. Alcohol abuse. No signs of withdrawal. continue CIWA DVT prophylaxis with Mechanical compression boots.
--- NOTE | 2020-04-12 16:14 | PC.NURSE ---
oral temp 100.0 , pt reports chills,sob with ambulation few feet to the bathroom. oxygen saturation 96% on room air at rest. Reported to Dr Alfonso
[2020-04-13 03:24] VITALS: BP 112/64; PULSE 88; RESP 18; TEMP 37; O2SAT 98
[2020-04-13 06:14] LABS: MANUAL DIFF FLAG NO
[2020-04-13 06:17] LABS: Basophils Absolute Auto 0.1 X10*3/uL (0.0-0.2); Basophils Percent Auto 0.5 % (0-2); Eosinophils Absolute Auto 0.1 X10*3/uL (0.0-0.4); Hematocrit 33.1 % (42-52); Hemoglobin 11.6 g/dl (14.0-18.0); Imm Gran Abs Auto 0.05 X10*3/uL (0.00-0.03); Imm Gran Pct Auto 0.5 % (0.0-0.4); Lymphocytes Absolute Auto 1.1 X10*3/uL (1.2-4.9); Lymphocytes Percent Auto 11.2 % (20-40); Mean Corpuscular Hemoglobin 36.3 pg (27.0-33.0); Mean Corpuscular Volume 103.4 fL (80-98); Mean Platelet Volume 9.8 fL (9.4-12.4); Monocytes Absolute Auto 1.4 X10*3/uL (0.1-1.2); Monocytes Percent Auto 13.7 % (2-11); Neutrophils Absolute Auto 7.5 X10*3/uL (2.0-8.3); Neutrophils Percent Auto 73.1 % (45-73); Platelet Count 241 X10*3/uL (160-400); Red Cell Distribution Width 14.2 % (11.0-16.0); White Blood Count 10.2 X10*3/uL (4.8-10.8)
[2020-04-13 06:24] LABS: INTERNATIONAL NORM RATIO 1.4 (0.9-1.1); Prothrombin Time 16.7 SEC (10.8-13.0)
[2020-04-13] MEDS: Omeprazole 20 MG CAPSULE.DR PO (06:35)
[2020-04-13 07:05] LABS: Alanine Aminotransferase 93 U/L (0-40); Albumin Level 2.6 g/dL (3.5-5.0); Alkaline Phosphatase 228 U/L (39-117); Anion Gap 11 (12-20); Aspartate Amino Transferase 210 U/L (5-37); Bilirubin Total 18.3 mg/dL (0.0-1.0); Blood Urea Nitrogen 10 mg/dL (9-16); Calcium 7.7 mg/dL (8.4-10.2); Carbon Dioxide 26 mmol/L (22-29); Chloride 99 mmol/L (96-108); Creatinine Clr Calc Pharmacy 123.5; Estimated Glomerular Filt Rate > 60; Glucose Random 99 mg/dL (60-115); Potassium 3.2 mmol/l (3.3-5.1); Sodium 133 mmol/L (135-145); Total Protein 5.2 g/dL (6.5-8.0)
[2020-04-13 07:13] LABS: Bilirubin Direct 14.3 mg/dL (0.0-0.5)
[2020-04-13 07:54] LABS: HBS Num1 1.25 mIU/mL (0-7.99); Hepatitis A Antibody IgM 0.16 Index (0-0.79); ~HepC Num1 0.12 S/CO (0.00-0.79); ~Hepatitis A Antibody IgM Nonreactive (Nonreactive)
[2020-04-13 08:00] VITALS: BP 125/76; PULSE 83; RESP 18; TEMP 36.4; O2SAT 99
[2020-04-13] MEDS: 0.9 % Sodium Chloride Flush 3 ML SYRINGE IVFLUSH (08:59)
[2020-04-13 09:19] VITALS: BP 125/76; PULSE 83
[2020-04-13] MEDS: Spironolactone 25 MG TABLET 100 MG PO (09:19)
[2020-04-13] MEDS: Furosemide 40 MG TABLET PO (09:20)
[2020-04-13] MEDS: Potassium Chloride ER 20 MEQ TAB.ER.PRT 40 MEQ PO (10:36)
[2020-04-13 11:16] VITALS: BP 116/73; PULSE 85; RESP 18; TEMP 36.8; O2SAT 97
--- NOTE | 2020-04-13 15:16 | MHC.CM.PN ---
pt dcd home no services
[2020-04-13 15:44] LABS: Folate 4.3 ng/mL (> or = 4.0); Vitamin B12 1854 pg/mL (200-900)
--- NOTE | 2020-04-13 16:15 | PM.DS ---
DS: Providers Provider Date of admission: 04/10/20 17:53 Primary care physician: Fernando Martin MD Consults: 04/10/20 22:10 Consult to Gastroenterology Routine Consulting Provider: John Kerr Reason for consultation: HEPATITIS Has provider been notified: No DS: Diagnosis Discharge Diagnosis (1) Acute alcoholic hepatitis: Status: Acute (2) Cirrhosis of liver: Status: Acute (3) Ascites: Status: Acute (4) Alcohol abuse: Status: Acute DS: Medications Discharge Medications Home Medications: Home Medications Medication Instructions Recorded Confirmed Vitamin B-1 04/10/20 Vitamin B-12 04/10/20 Vitamin B-6 04/10/20 pantoprazole 04/10/20 Previous Rx's Medication Instructions Recorded furosemide 40 mg PO DAILY #30 tab 04/13/20 spironolactone [Aldactone] 100 mg PO DAILY #30 tab 04/13/20 DS: Summary Hospital Course Hospital Course: history of presenting illness Chief Complaint: Abdominal pain, shortness of breath 55 year old man presenting with abdominal pain and shortness of breath over the last 2 weeks. He reported poor appetite, and increasing size of abdomen with shortness of breath. He denied weakness, confusion, dizziness, muscle cramps, chest pain, fever, nausea, vomiting or diarrhea. He reports a long history of alcohol abuse and currently drinks 2 glasses of wine a day and had his last drink last Saturday. He denied any withdrawals. Abdominal CT showed interval development of moderate peritoneal ascites and Hepatic steatosis with probable focal sparing in the left lobe posteriorly. Elevated liver enzymes noted. AST 243, ALT 93, Total bilirubin 12.7, albumin 2.6. He did not have fever or leukocytosis however, he had abdominal pain therefore he was tapped to rule out SBP. He was given a dose of Rocephin, zofran and albumin in the ED. He will be admitted for further management of hepatitis with ascites likely related from alcohol abuse. hospital course 55 year old man admitted with acute hepatitis related to alcohol use. Patient reports no previous workup for alcoholic liver disease and no history of ascites in the past. acute Alcoholic hepatitis. likely related to chronic alcohol abuse, no confusion or encephalopathy , worsening of total and direct bili , likely related to cholestasis, patient remains asymptomatic tolerating diet no abdominal pain no nausea, no vomiting, strongly advised to abstain from alcohol, INR 1.4, albumin 2.7 suggestive of poor synthetic function of liver ,s/p vitamin K , protein shakes, CT abdomen and pelvis obtained on admission showed no biliary obstruction, since patient is tolerating diet and hemodynamically stable he is being discharged home rising total bili is due to cholestasis that will take weeks to improve, case discussed with Dr. Zavala he will follow patient as an outpatient will repeat liver test and BMP in 1 week. Ascites. patient underwent paracentesis in emergency room 3.5 liters of fluid removed fluid cell count not suggestive of SBP, patient seen by Dr. Zavala and started on Lasix and Aldactone potassium 3.2 this a.m. will be replaced will repeat electrolytes early next week recommend to follow up with PCP and Gastroenterology Hyponatremia. Likely from fluid retention/ascites, sodium improved from 130-133 Hypokalemia. depleted follow-up labs early next week Hypomagnesemia likely due to alcohol abuse and poor nutrition magnesium improved from 1.2 to 1.8 after magnesium replacement. Coagulopathy. Likely related to liver disease s/p vitamin K. Alcohol abuse. No signs of withdrawal, strongly advised to abstain from alcohol outpatient referrals given. Time Spent with Patient Time attestation: Total time spent providing and/or coordinating discharge services: Physical Exam Vital Signs: Vital Signs: Last Vital Signs Temp 98.2 F 04/13/20 11:16 Pulse 85 04/13/20 11:16 Resp 18 04/13/20 11:16 BP 116/73 04/13/20 11:16 Pulse Ox 97 04/13/20 11:16 Body Mass Index 22.4 General no acute distress. Eyes icteric sclera Neck is supple no JVD. CVS regular rate rhythm, Respiratory lungs clear , no respiratory distress. Gastrointestinal abdomen distended, nontender, bowel sounds audible. Extremities no edema. Neuro nonfocal . Skin jaundice DS: Data Data Completed and Pending Labs on day of discharge: 04/10/20 10:55 ECG 12 lead EKG Stat EKG Documentation DIRECTED IV insert/maintain .Now 0.9 % Sodium Chloride [Ns] 500 ml IV 1,000 mls/hr ondansetron HCL [Zofran] 4 mg IVPUSH ONCE ONE 04/10/20 10:56 CT abdomen pelvis w con Stat 04/10/20 10:58 Consult Rx Perform Med Rec 1 each MISCELLANE ONCE PRN 04/10/20 11:31 SARS-CoV2/FLU/RSV Stat 04/10/20 11:32 B Type Natriuretic Peptide Stat Complete Blood Count Auto Diff Stat Lactic Acid Stat Troponin-I High Sensitivity Stat 04/10/20 12:20 Comprehensive Met. Panel Stat Ethanol Stat Hepatitis A,B,C Profile Stat Lipase Stat Liver Panel Stat Magnesium Stat PTT [Partial Thromboplastin Time] Stat Prothrombin Time INR Stat 04/10/20 12:56 Add Laboratory Test Stat 04/10/20 14:02 XR chest 1V Stat 04/10/20 14:49 iohexoL 350 MG/ML [Omnipaque 350 MG/ML] 100 ml IV ONCE ONE 04/10/20 15:55 Add Laboratory Test Stat 04/10/20 17:01 Setup Paracentesis NOW 04/10/20 17:27 Albumin Peritoneal Fluid Stat Amylase Peritoneal Fluid Stat Cell Ct wDiff Peritoneal FL Stat Glucose Peritoneal Fluid Stat LDH Peritoneal Fluid Stat Total Protein Peritoneal Fluid Stat cefTRIAXone sodium [Rocephin] 1 gm 0.9 % Sodium Chloride [Ns] 50 ml IV ONCE 04/10/20 17:30 Albumin Human 25 % [Kedbumin 25 %] 100 ml IV Q1H 04/10/20 17:50 Code Status Routine Transfer Order Routine 04/10/20 17:58 cefTRIAXone sodium [Rocephin] 1 gm .ROUTE .STK-MED ONE 04/10/20 18:02 Add Laboratory Test Stat 04/10/20 Dinner Regular Diet 04/10/20 19:39 cefTRIAXone sodium [Rocephin] 1 gm .ROUTE .STK-MED ONE 04/10/20 22:10 Potassium Chloride ER [Klor-con] 40 meq PO ONCE ONE ondansetron HCL [Zofran] 4 mg IVPUSH Q8H PRN 04/10/20 22:10 Ambulate QSHIFT WHILE AWAKE Assess CIWA scale Q4HR Compression Therapy QSHIFT Cont. Telemetry w/Vital Sign limit Q4HR IV insert/maintain Q4HR Intake and Output QSHIFTE Pulse Oximetry Q4HR Vital Signs Q4HR 04/10/20 22:59 Sodium Routine 04/10/20 23:11 diphenhydrAMINE HCL [Benadryl] 25 mg IVPUSH ONCE ONE 04/11/20 00:00 0.9 % Sodium Chloride Flush [NS Flush] 3 ml IVFLUSH QSHIFT 04/11/20 00:09 Drug Screen Urine Stat Osmolality Urine Stat Sodium Urine Random Stat 04/11/20 05:36 Basic Metabolic Panel DAILY@0600 Complete Blood Count Auto Diff DAILY@0600 Liver Panel DAILY@0600 Prothrombin Time INR DAILY@0600 SLIDE REVIEW Routine 04/11/20 06:30 Omeprazole [PriLOSEC] 20 mg PO DAILY@0630 04/11/20 08:38 Magnesium Sulfate/H2O 2 gm in 50 ml IV ONCE 04/11/20 15:30 Furosemide [Lasix] 40 mg PO DAILY Spironolactone [Aldactone] 100 mg PO DAILY 04/11/20 Lunch Regular Diet 04/11/20 16:49 Magnesium Sulfate/H2O 2 gm in 50 ml IV ONCE Phytonadione (Vit K1) Oral [Vitamin K Oral] 5 mg PO ONCE ONE 04/12/20 05:47 Basic Metabolic Panel Routine Liver Panel Routine Magnesium Routine 04/13/20 05:57 Basic Metabolic Panel Routine Complete Blood Count Auto Diff Routine Liver Panel Routine Prothrombin Time INR Routine 04/13/20 07:13 Vitamin B12 and Folate Routine 04/13/20 09:56 Potassium Chloride ER [Klor-con] 40 meq PO ONCE ONE 04/13/20 14:58 Add Laboratory Test Routine Laboratory Last Values WBC 10.2 X10*3/uL (4.8-10.8) 04/13/20 05:57 RBC 3.20 X10*6/uL (4.60-5.80) L 04/13/20 05:57 Hgb 11.6 g/dl (14.0-18.0) L 04/13/20 05:57 Hct 33.1 % (42-52) L 04/13/20 05:57 MCV 103.4 fL (80-98) H 04/13/20 05:57 MCH 36.3 pg (27.0-33.0) H 04/13/20 05:57 MCHC 35.0 g/dl (31.0-36.0) 04/13/20 05:57 RDW 14.2 % (11.0-16.0) 04/13/20 05:57 Plt Count 241 X10*3/uL (160-400) 04/13/20 05:57 MPV 9.8 fL (9.4-12.4) 04/13/20 05:57 Immature Gran % (Auto) 0.5 % (0.0-0.4) H 04/13/20 05:57 Neut % (Auto) 73.1 % (45-73) H 04/13/20 05:57 Lymph % (Auto) 11.2 % (20-40) L 04/13/20 05:57 [place] % (Auto) 13.7 % (2-11) H 04/13/20 05:57 Eos % (Auto) 1.0 % (0-4) 04/13/20 05:57 Baso % (Auto) 0.5 % (0-2) 04/13/20 05:57 Lymph # (Auto) 1.1 X10*3/uL (1.2-4.9) L 04/13/20 05:57 [place] # (Auto) 1.4 X10*3/uL (0.1-1.2) H 04/13/20 05:57 Eos # (Auto) 0.1 X10*3/uL (0.0-0.4) 04/13/20 05:57 Baso # (Auto) 0.1 X10*3/uL (0.0-0.2) 04/13/20 05:57 Abs Immat Gran (auto) 0.05 X10*3/uL (0.00-0.03) H 04/13/20 05:57 Absolute Neuts (auto) 7.5 X10*3/uL (2.0-8.3) 04/13/20 05:57 Absolute Nucleated RBC 0.000 X10*3/uL (0.0-0.012) 04/13/20 05:57 Nucleated RBC % (auto) 0.0 /100WBC (0.0-0.2) 04/13/20 05:57 Smear Tech's Comments VERIFIED 04/11/20 05:36 PT 16.7 SEC (10.8-13.0) H 04/13/20 05:57 INR 1.4 (0.9-1.1) H 04/13/20 05:57 APTT 32.4 SEC (24.1-38.0) 04/10/20 12:20 Sodium 133 mmol/L (135-145) L 04/13/20 05:57 Potassium 3.2 mmol/l (3.3-5.1) L 04/13/20 05:57 Chloride 99 mmol/L (96-108) 04/13/20 05:57 Carbon Dioxide 26 mmol/L (22-29) 04/13/20 05:57 Anion Gap 11 (12-20) L 04/13/20 05:57 BUN 10 mg/dL (9-16) 04/13/20 05:57 Creatinine 0.71 mg/dL (0.5-1.4) 04/13/20 05:57 Estim Creat Clear Calc 123.5 04/13/20 05:57 Estimated GFR > 60 04/13/20 05:57 Random Glucose 99 mg/dL (60-115) 04/13/20 05:57 Lactic Acid 1.7 mmol/L (0.5-2.0) 04/10/20 11:32 Calcium 7.7 mg/dL (8.4-10.2) L 04/13/20 05:57 Magnesium 1.8 mg/dL (1.6-2.6) 04/12/20 05:47 Total Bilirubin 18.3 mg/dL (0.0-1.0) H 04/13/20 05:57 Direct Bilirubin 14.3 mg/dL (0.0-0.5) H 04/13/20 05:57 AST 210 U/L (5-37) H 04/13/20 05:57 ALT 93 U/L (0-40) H 04/13/20 05:57 Alkaline Phosphatase 228 U/L (39-117) H 04/13/20 05:57 Troponin I High Sens < 3.5 ng/L (<3.5-35.0) 04/10/20 11:32 B-Natriuretic Peptide 105 pg/mL (<100) H 04/10/20 11:32 Total Protein 5.2 g/dL (6.5-8.0) L 04/13/20 05:57 Albumin 2.6 g/dL (3.5-5.0) L 04/13/20 05:57 Lipase 15 U/L (8-78) 04/10/20 12:20 Vitamin B12 1854 pg/mL (200-900) H 04/13/20 07:13 Folate 4.3 ng/mL (> or = 4.0) 04/13/20 07:13 Urine Color FEROZ 04/11/20 12:07 Urine Appearance CLOUDY 04/11/20 12:07 Urine pH 7.0 (5.0-8.0) 04/11/20 12:07 Ur Specific [place] 1.020 (1.005-1.025) 04/11/20 12:07 Urine Protein 1+ MG/DL (NEG-TRACE) H 04/11/20 12:07 Urine Glucose (UA) SEE NOTE MG/DL (NEG) 04/11/20 12:07 Urine Ketones SEE NOTE MG/DL (NEG) 04/11/20 12:07 Urine Blood NEG (NEG) 04/11/20 12:07 Urine Nitrite SEE NOTE (NEG) 04/11/20 12:07 Ur Leukocyte Esterase SEE NOTE (NEG) 04/11/20 12:07 Urine RBC 0-2 /HPF (0) 04/11/20 12:07 Urine WBC 0-2 /HPF (0-4) 04/11/20 12:07 Ur Squamous Epith Cells TRACE /LPF 04/11/20 12:07 Urine Bacteria TRACE /LPF 04/11/20 12:07 Hyaline Casts 0-2 /LPF 04/11/20 12:07 Urine Mucus 1+ /LPF 04/11/20 12:07 Urine Osmolality 606 mosm/kg (373-1093) 04/11/20 00:09 Ur Random Sodium < 20.0 mmol/L 04/11/20 00:09 Peritoneal pH Cancelled 04/10/20 17:27 Peritoneal WBC 0.239 X10*3/uL 04/10/20 17:27 Peritoneal RBC < 0.002 X10*6/uL 04/10/20 17:27 Periton Neutrophils 12 % 04/10/20 17:27 Periton Lymphocytes 16 % 04/10/20 17:27 Peritoneal Monocytes 30 % 04/10/20 17:27 Peritoneal Other Cells 42 % 04/10/20 17:27 Peritoneal Tot Protein 2.7 04/10/20 17:27 Peritoneal Albumin 1.5 04/10/20 17:27 Peritoneal LDH 85 04/10/20 17:27 Peritoneal Glucose 110 04/10/20 17:27 Peritoneal Amylase 14 04/10/20 17:27 Urine Opiates Screen Not Detected (Not Detect) 04/11/20 00:09 Ur Barbiturates Screen Not Detected (Not Detect) 04/11/20 00:09 Ur Phencyclidine Scrn Not Detected (Not Detect) 04/11/20 00:09 Ur Amphetamines Screen Not Detected (Not Detect) 04/11/20 00:09 U Benzodiazepines Scrn Not Detected (Not Detect) 04/11/20 00:09 Urine Cocaine Screen Not Detected (Not Detect) 04/11/20 00:09 U Marijuana (THC) Screen Not Detected (Not Detect) 04/11/20 00:09 Ethyl Alcohol < 10 mg/dL 04/10/20 12:20 Coronavirus (PCR) NEGATIVE (Negative) 04/10/20 11:31 Hepatitis A IgM Ab Cancelled 04/11/20 05:36 Hep Bs Antigen Cancelled 04/11/20 05:36 Hep Bs Antibody Cancelled 04/11/20 05:36 Hep B Core Total Ab Cancelled 04/11/20 05:36 Hepatitis C Ab (EIA) Cancelled 04/11/20 05:36 Influenza Type A (PCR) NEGATIVE (Negative) 04/10/20 11:31 Influenza Type B (PCR) NEGATIVE (Negative) 04/10/20 11:31 RSV RNA Qual (PCR) NEGATIVE (Negative) 04/10/20 11:31 Preliminary micro results at discharge 04/10/20 12:20 Blood Culture - Preliminary Blood - Venous No growth after 48 hours. 04/10/20 12:20 Blood Culture - Preliminary Blood - Venous No growth after 48 hours. Discharge Plan Discharge Patient Disposition: Home, Self-Care Referrals: Fernando Martin MD [Primary Care Provider] - Discharge Medications: New furosemide 40 mg Tablet 40 mg PO DAILY Qty: 30 RF: 0 spironolactone [Aldactone] 100 mg tablet 100 mg PO DAILY Qty: 30 RF: 0 Continued pantoprazole RF: 0 Vitamin B-1 RF: 0 Vitamin B-12 RF: 0 Vitamin B-6 RF: 0 Discharge Orders: Discharge Order (Routine); Ordered 04/13/20 Ordered By: Forrest Alfonso Diet: low fat, low cholesterol and low salt diet Activity on Discharge: As tolerated Discharge Date/Time: 04/13/20 15:22 Other Ambulatory Orders: Basic Metabolic Panel (Routine) Timeframe: 20200418 Facility: [facility] - Location: Laboratory Ordered By: Forrest Alfonso Liver Panel (Routine) Timeframe: 20200418 Facility: [facility] - Location: Laboratory Ordered By: Forrest Alfonso Visit Report Forms: Patient Portal Discharge page Care Plan Goals: Recommended complete abstinence from alcohol Health Concerns: take Lasix and Aldactone as prescribed check lab work next week and follow-up with gastroenterology in 1 month Plan of Treatment: follow-up with primary care physician in 1 week.
== END 2020-04-13 15:22 | disposition home or self-care (01) | DRG 280 ==
LOC: HO.ED 17:33 → HO.IMC 19:55
PROVIDERS: Nurse Practitioner Acute Care; Nurse Practitioner Primary Care; Admitting Provider Internal Medicine; Emergency Provider Emergency Medicine; PCP Internal Medicine; Visit Provider Hospitalist
DX: K70.11 Alcoholic hepatitis with ascites (principal); D68.9 Coagulation defect, unspecified; E87.1 Hypo-osmolality and hyponatremia; Z20.828 Contact with and (suspected) exposure to other viral communicable diseases; E83.42 Hypomagnesemia; E87.6 Hypokalemia; F10.10 Alcohol abuse, uncomplicated; Z79.899 Other long term (current) drug therapy
CPT/HCPCS: 0241U; 36415; 71045; 74177; 80048; 80053; 80076; 80307; 80320; 81001; 82042; 82150; 82607; 82746; 82945; 83605; 83615; 83690; 83735; 83880; 83935; 84157; 84295; 84300; 84484; 85025; 85610; 85730; 86704; 86706; 86709; 86803; 87040; 87340; 89051; 93005; 96365; 96366; 96367; 96375; 96376; 99285; J0696; J1200; J2405; J3430; J3475; P9047; Q9967

== ENCOUNTER 2020-05-18 10:21 | Outpatient (REF) | payer MEDICAID, SELFPAY ==
[2020-05-18 11:08] LABS: MANUAL DIFF FLAG NO
[2020-05-18 11:19] LABS: Basophils Percent Auto 0.4 % (0-2); Eosinophils Absolute Auto 0.2 X10*3/uL (0.0-0.4); Eosinophils Percent Auto 1.8 % (0-4); Hematocrit 33.8 % (42-52); Hemoglobin 10.9 g/dl (14.0-18.0); Imm Gran Abs Auto 0.04 X10*3/uL (0.00-0.03); Imm Gran Pct Auto 0.4 % (0.0-0.4); Lymphocytes Absolute Auto 1.4 X10*3/uL (1.2-4.9); Lymphocytes Percent Auto 13.8 % (20-40); Mean Corpuscular HGB Conc 32.2 g/dl (31.0-36.0); Mean Corpuscular Hemoglobin 35.3 pg (27.0-33.0); Mean Corpuscular Volume 109.4 fL (80-98); Mean Platelet Volume 9.3 fL (9.4-12.4); Monocytes Absolute Auto 1.1 X10*3/uL (0.1-1.2); Monocytes Percent Auto 10.5 % (2-11); Neutrophils Absolute Auto 7.5 X10*3/uL (2.0-8.3); Neutrophils Percent Auto 73.1 % (45-73); Platelet Count 277 X10*3/uL (160-400); Red Blood Count 3.09 X10*6/uL (4.60-5.80); White Blood Count 10.3 X10*3/uL (4.8-10.8)
[2020-05-18 11:24] LABS: INTERNATIONAL NORM RATIO 1.3 (0.9-1.1); Prothrombin Time 15.9 SEC (10.8-13.0)
[2020-05-18 11:27] LABS: Partial Thromboplastin Time 35.6 SEC (24.1-38.0)
== END 2020-05-18 10:22 | disposition home or self-care (01) ==
LOC: HO.LAB 10:21
PROVIDERS: PCP Internal Medicine; Visit Provider Internal Medicine Gastroenterology
DX: R18.8 Other ascites (principal)
CPT/HCPCS: 36415; 85025; 85610; 85730

== ENCOUNTER 2020-05-23 07:53 | Day surgery (SDC) | payer MEDICAID, SELFPAY ==
--- NOTE | 2020-05-23 | US_ITS ---
EXAMINATION: ULTRASOUND-GUIDED PARACENTESIS CLINICAL INFORMATION: Ascites COMPARISON: None TECHNIQUE: Procedure and risks and benefits including bleeding, infection and low blood pressure were discussed with the patient and informed consent was obtained. The right upper quadrant was prepped and draped in the usual sterile fashion. The skin and soft tissues were anesthetized with 1% lidocaine plain. Using ultrasound guidance and a 5 [place] rapid centesis catheter, access to the ascitic fluid was obtained. 2.3 L of clear dark yellow fluid was removed. No diagnostic specimen was sent. FINDINGS: There is a moderate amount of ascites. US/US paracentesis abd w/image IMPRESSION: Ultrasound-guided paracentesis.
--- NOTE | 2020-05-23 07:45 | PC.NURSE ---
PATIENT HASNT ARRIVED. CALLED CELL. VOICE MAIL FULL UNABLE TO LEAVE A MESSAGE.
[2020-05-23 08:08] VITALS: BMI 23.3
[2020-05-23] MEDS: Lidocaine HCl 1 % MPF 5 ML VIAL SUBCUT (09:45)
[2020-05-23 09:52] VITALS: BP 106/68; PULSE 73; RESP 17; TEMP 36.9; O2SAT 96
[2020-05-23 10:07] VITALS: BP 102/67; PULSE 73; RESP 17; O2SAT 96
--- NOTE | 2020-05-23 10:08 | HO.RADPN ---
RADIOLOGY Narrative Narrative: right sided paracentesis performed. 2.3 L clear fluid removed. No specimensent.
[2020-05-23 10:36] VITALS: BP 117/72; PULSE 79; RESP 16; TEMP 37.1; O2SAT 97
[2020-05-23 10:52] VITALS: BP 113/70; PULSE 82; RESP 17; O2SAT 97
== END 2020-05-23 11:05 | disposition home or self-care (01) ==
PROVIDERS: PCP Radiology Diagnostic Radiology; Visit Provider Radiology Diagnostic Radiology
DX: K70.11 Alcoholic hepatitis with ascites (principal); F10.20 Alcohol dependence, uncomplicated; F12.90 Cannabis use, unspecified, uncomplicated; J45.909 Unspecified asthma, uncomplicated; Z86.711 Personal history of pulmonary embolism; Z79.899 Other long term (current) drug therapy
CPT/HCPCS: 49083

== ENCOUNTER 2020-05-24 13:47 | Outpatient (REF) | payer MEDICAID, SELFPAY ==
[2020-05-24 14:53] LABS: MANUAL DIFF FLAG NO
[2020-05-24 14:57] LABS: Basophils Percent Auto 0.4 % (0-2); Eosinophils Absolute Auto 0.1 X10*3/uL (0.0-0.4); Eosinophils Percent Auto 1.3 % (0-4); Hemoglobin 11.8 g/dl (14.0-18.0); Imm Gran Abs Auto 0.05 X10*3/uL (0.00-0.03); Imm Gran Pct Auto 0.6 % (0.0-0.4); Lymphocytes Absolute Auto 1.2 X10*3/uL (1.2-4.9); Lymphocytes Percent Auto 14.4 % (20-40); Mean Corpuscular HGB Conc 32.8 g/dl (31.0-36.0); Mean Corpuscular Hemoglobin 34.8 pg (27.0-33.0); Mean Corpuscular Volume 106.2 fL (80-98); Mean Platelet Volume 9.2 fL (9.4-12.4); Monocytes Absolute Auto 0.9 X10*3/uL (0.1-1.2); Monocytes Percent Auto 11.2 % (2-11); Neutrophils Percent Auto 72.1 % (45-73); Platelet Count 277 X10*3/uL (160-400); Red Blood Count 3.39 X10*6/uL (4.60-5.80); Red Cell Distribution Width 11.8 % (11.0-16.0); White Blood Count 8.3 X10*3/uL (4.8-10.8)
[2020-05-24 15:04] LABS: INTERNATIONAL NORM RATIO 1.3 (0.9-1.1); Prothrombin Time 15.6 SEC (10.8-13.0)
[2020-05-24 15:31] LABS: Alanine Aminotransferase 44 U/L (0-40); Albumin Level 3.3 g/dL (3.5-5.0); Alkaline Phosphatase 167 U/L (39-117); Anion Gap 15 (12-20); Aspartate Amino Transferase 109 U/L (5-37); Bilirubin Direct 5.4 mg/dL (0.0-0.5); Bilirubin Total 7.3 mg/dL (0.0-1.0); Blood Urea Nitrogen 14 mg/dL (9-16); Carbon Dioxide 28 mmol/L (22-29); Chloride 99 mmol/L (96-108); Estimated Glomerular Filt Rate > 60; Glucose Fasting 105 mg/dL (60-99); Potassium 4.7 mmol/l (3.3-5.1); Sodium 137 mmol/L (135-145); Total Protein 7.4 g/dL (6.5-8.0)
== END 2020-05-24 13:48 | disposition home or self-care (01) ==
LOC: HO.LAB 13:47
PROVIDERS: PCP Internal Medicine; Visit Provider Internal Medicine Gastroenterology
DX: K74.60 Unspecified cirrhosis of liver (principal); R18.8 Other ascites
CPT/HCPCS: 36415; 80053; 80076; 82248; 85025; 85610

== ENCOUNTER 2020-05-31 11:21 | Day surgery (SDC) | payer MEDICAID, SELFPAY ==
[2020-05-26 14:52] VITALS: BMI 23.3
--- NOTE | 2020-05-30 09:40 | P.CONAN_ITS ---
Documented by User: Carey Floyd 05/30/20 09:48 HPI - Anesthesia Eval Consult details Narrative: 55yo M for Upper Endoscopy s/p paracentesis 05/24/20, 3L removed H/O ETOH abuse, quit 2019. [facility] [place]C 03/2020 with acute alcoholic hepatitis. [facility] Past Medical History Medical History Asthma Hx of fall Hx pulmonary embolism Status post abdominal paracentesis Surgical History Surgical History Hx of colonoscopy Social History Social History Household Members: Other Housing: House Alcohol intake: former Year quit: 2019 Smoking Status: Never smoker Substance Use Type: Marijuana Advance Directives: No Advance Directives Information Provided: No Advance Directives on File: No service: No Current occupational status: employed Meds Allergies Allergy/AdvReac Type Severity Reaction Status Date / Time No Known Allergies Allergy Verified 05/26/20 14:40 [No Known Allergies*] Home Medications Medication Instructions Recorded Confirmed Type Vitamin B-1 04/10/20 History Vitamin B-12 04/10/20 History Vitamin B-6 04/10/20 History albuterol sulfate 2 puff INHALATION Q4-6H PRN 05/26/20 05/26/20 History pantoprazole 40 mg PO DAILY 05/26/20 05/26/20 History Exam Exam Date and Time: May 30, 2020 0940 Height,Weight and Vital Signs: Height 6 ft Weight 78.018 kg Pertinent Lab Results Pertinent Lab Results: Laboratory Tests 05/24/20 05/24/20 13:55 13:55 WBC 8.3 Hgb 11.8 L Hct 36.0 L Plt Count 277 Sodium 137 Potassium 4.7 D Chloride 99 Carbon Dioxide 28 BUN 14 Creatinine 1.14 Laboratory Tests 05/24/20 05/24/20 13:55 13:55 PT 15.6 H INR 1.3 H Total Bilirubin 7.3 H Direct Bilirubin 5.4 H AST 109 H ALT 44 H Alkaline Phosphatase 167 H D Total Protein 7.4 D Albumin 3.3 L D All LIVP trending toward normal compared to 03/2020. Narrative Narrative: EKG 03/2020: Normal sinus rhythm Left axis deviation Nonspecific T wave abnormality Low voltage QRS Assessment and Plan Assessment Anesthesia Assessment: Chart Reviewed Documented by User: Helga Arechiga 05/31/20 12:41 PMFSH Past Medical History Medical History Asthma Hx of fall Hx pulmonary embolism Status post abdominal paracentesis Surgical History Surgical History Hx of colonoscopy Social History Social History Household Members: Other Housing: House Alcohol intake: former Year quit: 2019 Smoking Status: Never smoker Substance Use Type: Marijuana Advance Directives: No Advance Directives Information Provided: No Advance Directives on File: No service: No Current occupational status: employed Meds Allergies Allergy/AdvReac Type Severity Reaction Status Date / Time No Known Allergies Allergy Verified 05/26/20 14:40 [No Known Allergies*] Home Medications Medication Instructions Recorded Confirmed Type Vitamin B-1 04/10/20 History Vitamin B-12 04/10/20 History Vitamin B-6 04/10/20 History albuterol sulfate 2 puff INHALATION Q4-6H PRN 05/26/20 05/26/20 History pantoprazole 40 mg PO DAILY 05/26/20 05/26/20 History Exam Airway Mallampati Class: II TM Dist: >3cm Neck ROM: Full
[2020-05-31 12:22] VITALS: BP 124/80; PULSE 80; RESP 16; TEMP 36; O2SAT 98
--- NOTE | 2020-05-31 12:32 | MHC.SHP ---
Pre-Procedural Eval Section A The patient is an INPATIENT: No Changes since office visit: No Cold of Flu in the past 2 weeks, No New Medical Problems, No Changes in Medication and No Patient answered all questions The History & Physical has been completed within 30 days and I have reviewed it.: Yes Section B Chief Complaint: cirrhosis of liver Allergies: Allergies Allergy/AdvReac Type Severity Reaction Status Date / Time No Known Allergies Allergy Verified 05/26/20 14:40 [No Known Allergies*] Plan I have reviewed the history and physical and performed a pertinent physical examination on my patient. No changes have occurred unless specified.
[2020-05-31] MEDS: Lactated Ringers 1,000 ML 100 ML IVCONT (12:40)
[2020-05-31 13:03] VITALS: BP 100/62; PULSE 68; RESP 12; TEMP 36.3; O2SAT 98
--- NOTE | 2020-05-31 13:03 | PM.OP ---
Brief Operative Note Date of Service: 05/31/20 Pre-op diagnosis: cirrhosis, ascites Post-op diagnosis: same (esophageal varices, portal hypertensive gastropathy) Procedure: EGD Surgeon: Jorge Zavala Anesthesia: MAC Estimated blood loss (mL): 0 Pathology: none sent Condition: stable Disposition: PACU
[2020-05-31 13:18] VITALS: BP 109/69; PULSE 66; RESP 17; TEMP 37; O2SAT 96
--- NOTE | 2020-05-31 13:33 | OP_ITS ---
SURGEON: Jorge Zavala MD INDICATIONS: Alcoholic hepatitis with ascites. Cirrhosis PREOPERATIVE DIAGNOSIS: POSTOPERATIVE DIAGNOSIS: PROCEDURE PERFORMED: Upper endoscopy. ESTIMATED BLOOD LOSS: COMPLICATIONS: ANESTHESIA: ASSISTANTS: SPECIMENS: MEDICATIONS: Monitored anesthesia care. DESCRIPTION OF PROCEDURE: History and physical performed. The risks and benefits of the procedure were explained to the patient. Informed consent was obtained. The patient was placed in the left lateral decubitus position. The Olympus video gastroscope was introduced into the esophagus, stomach, and duodenum. Examination was performed and the scope was removed. He tolerated the procedure well and was taken to recovery area in stable condition. FINDINGS: Esophagus: The esophagus showed 3 chains of grade 1 varices extending from the EG junction at 38 cm to about 28 cm. There are no stigmata of recent hemorrhage. There was no esophagitis. Stomach: The stomach showed very mild changes of portal hypertensive gastropathy. No gastric varices were seen. There was no gastritis and no peptic ulcer disease identified. Duodenum: The bulb and second portion were normal. IMPRESSION: 1. Esophageal varices. 2. Portal hypertensive gastropathy. RECOMMENDATIONS: 1. Continue present diuretic regimen. 2. Follow up office visit as previously scheduled. 3. Continued cessation of alcohol. MD ELMER Mendoza/HERNAN / [id number] MTDD
--- NOTE | 2020-05-31 13:50 | HO.POSTANES ---
Post Anesthesia Evaluation Post Anesthesia Evaluation Vital Signs: Vital Signs Temp Pulse Resp BP Pulse Ox 05/31/20 13:18 98.6 F 66 17 109/69 96 05/31/20 13:03 97.4 F 68 12 100/62 98 05/31/20 12:22 96.8 F 80 16 124/80 98 Anesthesia: Monitored Mental Status: Awake Pain Control: Satisfactory Nausea/Vomiting: None Hydration: Adequate Anesthesia-Related Issues: No Anes. Related Issues
== END 2020-05-31 13:46 | disposition home or self-care (01) ==
PROVIDERS: PCP Internal Medicine; Visit Provider Internal Medicine Gastroenterology
PROC: 0DJ08ZZ Inspection of Upper Intestinal Tract, Via Natural or Artificial Opening Endoscopic (ICD-10-PCS; CPT 43235; principal; 2020-05-31 12:40)
DX: K70.11 Alcoholic hepatitis with ascites (principal); I85.10 Secondary esophageal varices without bleeding; K74.60 Unspecified cirrhosis of liver; K76.6 Portal hypertension; K31.89 Other diseases of stomach and duodenum; F32.9 Major depressive disorder, single episode, unspecified; J45.909 Unspecified asthma, uncomplicated; Z79.899 Other long term (current) drug therapy; Z86.711 Personal history of pulmonary embolism; Z86.59 Personal history of other mental and behavioral disorders
CPT/HCPCS: 43235

== ENCOUNTER 2020-06-13 15:16 | Outpatient (REF) | payer MEDICAID, SELFPAY ==
[2020-06-13 15:53] LABS: Hematocrit 36.3 % (42-52); Hemoglobin 12.1 g/dl (14.0-18.0); Mean Corpuscular HGB Conc 33.3 g/dl (31.0-36.0); Mean Corpuscular Hemoglobin 33.5 pg (27.0-33.0); Mean Corpuscular Volume 100.6 fL (80-98); Platelet Count 220 X10*3/uL (160-400); Red Blood Count 3.61 X10*6/uL (4.60-5.80); Red Cell Distribution Width 12.2 % (11.0-16.0); White Blood Count 5.3 X10*3/uL (4.8-10.8)
[2020-06-13 16:23] LABS: Alanine Aminotransferase 85 U/L (0-40); Albumin Level 3.7 g/dL (3.5-5.0); Alkaline Phosphatase 141 U/L (39-117); Anion Gap 14 (12-20); Aspartate Amino Transferase 364 U/L (5-37); Bilirubin Direct 2.9 mg/dL (0.0-0.5); Bilirubin Total 4.5 mg/dL (0.0-1.0); Blood Urea Nitrogen 27 mg/dL (9-16); Carbon Dioxide 26 mmol/L (22-29); Chloride 101 mmol/L (96-108); Estimated Glomerular Filt Rate 46; Glucose Random 129 mg/dL (60-115); Potassium 4.9 mmol/l (3.3-5.1); Sodium 136 mmol/L (135-145); Total Protein 7.5 g/dL (6.5-8.0)
== END 2020-06-13 15:17 | disposition home or self-care (01) ==
LOC: HO.LAB 15:16
PROVIDERS: PCP Internal Medicine; Visit Provider Internal Medicine Gastroenterology
DX: K70.11 Alcoholic hepatitis with ascites (principal)
CPT/HCPCS: 36415; 80053; 80076; 82248; 85027

== ENCOUNTER 2020-06-24 11:59 | Outpatient (REF) | payer MEDICAID, SELFPAY ==
[2020-06-24 14:07] LABS: Alanine Aminotransferase 55 U/L (0-40); Albumin Level 3.5 g/dL (3.5-5.0); Alkaline Phosphatase 195 U/L (39-117); Anion Gap 14 (12-20); Aspartate Amino Transferase 71 U/L (5-37); Blood Urea Nitrogen 25 mg/dL (9-16); Calcium 9.5 mg/dL (8.4-10.2); Carbon Dioxide 24 mmol/L (22-29); Chloride 103 mmol/L (96-108); Estimated Glomerular Filt Rate 52; Glucose Random 125 mg/dL (60-115); Sodium 136 mmol/L (135-145); Total Protein 6.9 g/dL (6.5-8.0)
== END 2020-06-24 12:00 | disposition home or self-care (01) ==
LOC: HO.LAB 11:59
PROVIDERS: PCP Internal Medicine; Visit Provider Internal Medicine Gastroenterology
DX: K70.11 Alcoholic hepatitis with ascites (principal)
CPT/HCPCS: 36415; 80053; 80076; 82248

== ENCOUNTER 2020-07-08 16:08 | Outpatient (REF) | payer MEDICAID, SELFPAY ==
[2020-07-08 17:23] LABS: Hematocrit 32.2 % (42-52); Hemoglobin 10.6 g/dl (14.0-18.0); Mean Corpuscular HGB Conc 32.9 g/dl (31.0-36.0); Mean Corpuscular Volume 100.3 fL (80-98); Platelet Count 167 X10*3/uL (160-400); Red Blood Count 3.21 X10*6/uL (4.60-5.80); Red Cell Distribution Width 14.6 % (11.0-16.0); White Blood Count 6.7 X10*3/uL (4.8-10.8)
[2020-07-08 17:46] LABS: Alanine Aminotransferase 39 U/L (0-40); Albumin Level 3.3 g/dL (3.5-5.0); Alkaline Phosphatase 169 U/L (39-117); Anion Gap 14 (12-20); Aspartate Amino Transferase 66 U/L (5-37); Bilirubin Direct 1.5 mg/dL (0.0-0.5); Bilirubin Total 2.5 mg/dL (0.0-1.0); Blood Urea Nitrogen 13 mg/dL (9-16); Carbon Dioxide 22 mmol/L (22-29); Chloride 109 mmol/L (96-108); Estimated Glomerular Filt Rate > 60; Glucose Random 86 mg/dL (60-115); Potassium 5.3 mmol/L (3.3-5.1); Sodium 140 mmol/L (135-145); Total Protein 6.6 g/dL (6.5-8.0)
== END 2020-07-08 16:09 | disposition home or self-care (01) ==
LOC: HO.LAB 16:08
PROVIDERS: PCP Internal Medicine; Visit Provider Internal Medicine Gastroenterology
DX: K70.11 Alcoholic hepatitis with ascites (principal)
CPT/HCPCS: 36415; 80053; 80076; 82248; 85027

== ENCOUNTER 2020-07-19 14:58 | Outpatient (REF) | payer MEDICAID, SELFPAY ==
[2020-07-19 15:38] LABS: Hematocrit 33.8 % (42-52); Hemoglobin 11.4 g/dl (14.0-18.0); Mean Corpuscular HGB Conc 33.7 g/dl (31.0-36.0); Mean Corpuscular Hemoglobin 33.2 pg (27.0-33.0); Mean Corpuscular Volume 98.5 fL (80-98); Mean Platelet Volume 8.7 fL (9.4-12.4); Platelet Count 184 X10*3/uL (160-400); Red Blood Count 3.43 X10*6/uL (4.60-5.80); Red Cell Distribution Width 15.8 % (11.0-16.0); White Blood Count 7.1 X10*3/uL (4.8-10.8)
[2020-07-19 16:06] LABS: Alanine Aminotransferase 42 U/L (0-40); Albumin Level 3.7 g/dL (3.5-5.0); Alkaline Phosphatase 159 U/L (39-117); Anion Gap 15 (12-20); Aspartate Amino Transferase 71 U/L (5-37); Bilirubin Direct 1.5 mg/dL (0.0-0.5); Bilirubin Total 3.5 mg/dL (0.0-1.0); Blood Urea Nitrogen 19 mg/dL (9-16); Calcium 9.2 mg/dL (8.4-10.2); Carbon Dioxide 25 mmol/L (22-29); Chloride 104 mmol/L (96-108); Estimated Glomerular Filt Rate 48; Glucose Random 102 mg/dL (60-115); Potassium 4.5 mmol/L (3.3-5.1); Sodium 139 mmol/L (135-145); Total Protein 7.2 g/dL (6.5-8.0)
== END 2020-07-19 14:59 | disposition home or self-care (01) ==
LOC: HO.LAB 14:58
PROVIDERS: PCP Internal Medicine; Visit Provider Internal Medicine Gastroenterology
DX: K70.11 Alcoholic hepatitis with ascites (principal)
CPT/HCPCS: 36415; 80053; 80076; 82248; 85027

== ENCOUNTER 2020-08-05 14:55 | Outpatient (REF) | payer MEDICAID, SELFPAY ==
[2020-08-05 15:18] LABS: Hematocrit 34.8 % (42-52); Hemoglobin 11.7 g/dl (14.0-18.0); Mean Corpuscular HGB Conc 33.6 g/dl (31.0-36.0); Mean Corpuscular Hemoglobin 33.6 pg (27.0-33.0); Platelet Count 168 X10*3/uL (160-400); Red Blood Count 3.48 X10*6/uL (4.60-5.80); Red Cell Distribution Width 15.8 % (11.0-16.0); White Blood Count 6.8 X10*3/uL (4.8-10.8)
[2020-08-05 15:22] LABS: INTERNATIONAL NORM RATIO 1.2 (0.9-1.1); Prothrombin Time 14.4 SEC (10.8-13.0)
[2020-08-05 15:49] LABS: Alanine Aminotransferase 28 U/L (0-40); Albumin Level 3.8 g/dL (3.5-5.0); Alkaline Phosphatase 129 U/L (39-117); Anion Gap 13 (12-20); Aspartate Amino Transferase 56 U/L (5-37); Bilirubin Direct 1.6 mg/dL (0.0-0.5); Bilirubin Total 3.8 mg/dL (0.0-1.0); Blood Urea Nitrogen 14 mg/dL (9-16); Calcium 9.4 mg/dL (8.4-10.2); Carbon Dioxide 25 mmol/L (22-29); Chloride 105 mmol/L (96-108); Estimated Glomerular Filt Rate 54; Glucose Random 154 mg/dL (60-115); Potassium 4.3 mmol/L (3.3-5.1); Sodium 139 mmol/L (135-145); Total Protein 7.5 g/dL (6.5-8.0)
== END 2020-08-05 14:56 | disposition home or self-care (01) ==
LOC: HO.LAB 14:55
PROVIDERS: PCP Internal Medicine; Visit Provider Internal Medicine Gastroenterology
DX: K70.11 Alcoholic hepatitis with ascites (principal)
CPT/HCPCS: 36415; 80048; 80076; 85027; 85610

== ENCOUNTER 2020-08-19 15:00 | Outpatient (RCR) | payer MEDICAID, SELFPAY | END 2020-09-06 14:53 | disposition other institution (70) | LOC: HO.PT 15:00 | PROVIDERS: PCP Internal Medicine; Visit Provider Internal Medicine | DX: M62.81 Muscle weakness (generalized) (principal) | CPT/HCPCS: 97110; 97162; 97530 ==

== ENCOUNTER 2020-12-05 09:40 | Outpatient (REF) | payer MEDICAID, SELFPAY ==
[2020-12-05 10:33] LABS: Hematocrit 33.9 % (42-52); Hemoglobin 11.6 g/dl (14.0-18.0); Mean Corpuscular HGB Conc 34.2 g/dl (31.0-36.0); Mean Corpuscular Hemoglobin 37.4 pg (27.0-33.0); Mean Corpuscular Volume 109.4 fL (80-98); Mean Platelet Volume 9.5 fL (9.4-12.4); Platelet Count 115 X10*3/uL (160-400); Red Cell Distribution Width 13.2 % (11.0-16.0)
[2020-12-05 10:59] LABS: Alanine Aminotransferase 45 U/L (0-40); Alkaline Phosphatase 237 U/L (39-117); Anion Gap 15 (12-20); Aspartate Amino Transferase 107 U/L (5-37); Bilirubin Total 5.5 mg/dL (0.0-1.0); Blood Urea Nitrogen 10 mg/dL (9-16); Calcium 9.2 mg/dL (8.4-10.2); Carbon Dioxide 28 mmol/L (22-29); Chloride 101 mmol/L (96-108); Estimated Glomerular Filt Rate 56; Glucose Random 131 mg/dL (60-115); Potassium 3.6 mmol/L (3.3-5.1); Sodium 140 mmol/L (135-145)
== END 2020-12-05 09:41 | disposition home or self-care (01) ==
LOC: HO.LAB 09:40
PROVIDERS: Visit Provider Internal Medicine Gastroenterology
DX: Z13.89 Encounter for screening for other disorder (principal)
CPT/HCPCS: 36415; 80048; 80076; 85027

== ENCOUNTER 2021-03-09 09:42 | Outpatient (REF) | payer MEDICAID, SELFPAY ==
[2021-03-09 10:08] LABS: MANUAL DIFF FLAG NO
[2021-03-09 10:50] LABS: Basophils Absolute Auto 0.1 X10*3/uL (0.0-0.2); Eosinophils Absolute Auto 0.3 X10*3/uL (0.0-0.4); Eosinophils Percent Auto 4.4 % (0-4); Hematocrit 32.6 % (42-52); Hemoglobin 11.4 g/dl (14.0-18.0); Imm Gran Abs Auto 0.01 X10*3/uL (0.00-0.03); Imm Gran Pct Auto 0.2 % (0.0-0.4); Lymphocytes Percent Auto 15.9 % (20-40); Mean Corpuscular Hemoglobin 38.1 pg (27.0-33.0); Monocytes Percent Auto 17.3 % (2-11); Neutrophils Absolute Auto 3.7 X10*3/uL (2.0-8.3); Neutrophils Percent Auto 61.2 % (45-73); Platelet Count 117 X10*3/uL (160-400); Red Blood Count 2.99 X10*6/uL (4.60-5.80); Red Cell Distribution Width 12.4 % (11.0-16.0)
[2021-03-09 10:52] LABS: INTERNATIONAL NORM RATIO 1.2 (0.9-1.1); Prothrombin Time 13.8 SEC (9.9-13.0)
[2021-03-09 11:22] LABS: Alanine Aminotransferase 42 U/L (0-40); Albumin Level 4.1 g/dL (3.5-5.0); Alkaline Phosphatase 173 U/L (39-117); Anion Gap 13 (12-20); Aspartate Amino Transferase 80 U/L (5-37); Bilirubin Direct 2.3 mg/dL (0.0-0.5); Bilirubin Total 3.9 mg/dL (0.0-1.0); Blood Urea Nitrogen 14 mg/dL (9-16); Calcium 9.7 mg/dL (8.4-10.2); Carbon Dioxide 25 mmol/L (22-29); Chloride 102 mmol/L (96-108); Estimated Glomerular Filt Rate 53; Glucose Random 132 mg/dL (60-115); Potassium 4.5 mmol/L (3.3-5.1); Sodium 135 mmol/L (135-145); Total Protein 8.4 g/dL (6.5-8.0)
== END 2021-03-09 09:43 | disposition home or self-care (01) ==
LOC: HO.LABR 09:42
PROVIDERS: PCP Internal Medicine; Visit Provider Internal Medicine Gastroenterology
DX: K74.60 Unspecified cirrhosis of liver (principal)
CPT/HCPCS: 36415; 80053; 82248; 85025; 85610

== ENCOUNTER 2021-07-25 00:13 | Inpatient (IN) | payer MEDICAID, SELFPAY ==
[2021-07-25] VITALS (13 sets, daily range): BP systolic 107–146; BP diastolic 54–78; PULSE 61–79; RESP 14–20; TEMP 36.8–37.7; O2SAT 95–99; BMI 25.0
--- NOTE | ~2021-07-25 | CT_ITS ---
EXAM: NONCONTRAST AND CONTRAST-ENHANCED CT OF THE ABDOMEN AND PELVIS FOR GI BLEED INDICATION: Diffuse abdominal pain, anemia, dark stool COMPARISON: 04/10/2020 TECHNIQUE: Multidetector helical imaging was performed through the abdomen and pelvis prior to and following the administration of 80 mL Omnipaque 350 IV contrast per GI bleed protocol including delayed images. Coronal and sagittal reformatted images were created at the technologist workstation. DOSE LOWERING TECHNIQUES: This CT examination was performed using dose optimization techniques as appropriate, variously including the following: - Automated exposure control - Adjustment of mA and/or kV according to patient size (this includes techniques or standardized protocols for targeted exams were dose is matched to indication/reason for exam; i.e. extremities or head) - Use of iterative reconstruction technique DLP: 1402 mGy-cm FINDINGS: The lung bases are clear. The liver demonstrate a slightly nodular contour, suggesting underlying cirrhosis. No intrahepatic biliary ductal dilatation. There is trace hepatic free fluid. The gallbladder has a somewhat thick-walled appearance. Cholelithiasis is noted. Spleen is at the upper limits of normal in size. The pancreas and adrenal glands appear unremarkable. Bilateral nephrograms are symmetric. No hydronephrosis. No obstructing renal or ureteral calculi are present. The urinary bladder is unremarkable. The prostate and seminal vesicles are unremarkable. No active gastrointestinal hemorrhage is seen. Varices are noted at the distal esophagus and proximal stomach. No evidence of bowel obstruction. There is colonic diverticulosis without convincing focal diverticulitis. Appendix appears nondilated. Mild stranding is present throughout the mesentery. Trace fluid in the lower abdomen. No free air is seen. Scattered atherosclerotic calcifications are noted. There are numerous subcentimeter lymph nodes throughout the retroperitoneum without significant enlargement. No acute osseous findings. CT/CT gi bleed abd pel wo/w con IMPRESSION: 1. No active gastrointestinal hemorrhage identified. 2. Varices along the distal esophagus and proximal stomach. 3. Slightly nodular hepatic contour, suggesting cirrhosis. Trace free fluid. 4. Colonic diverticulosis without convincing diverticulitis. 5. Cholelithiasis with nonspecific slight gallbladder wall thickening. If clinically warranted, this could be further assessed with ultrasound.
--- NOTE | ~2021-07-25 | XR_ITS ---
EXAMINATION: XR CHEST CLINICAL INFORMATION: Chest pain COMPARISON: 04/10/2020 TECHNIQUE: Frontal view of the chest was obtained. FINDINGS: Lung volumes are symmetric. No focal consolidation is seen. No evidence of pneumothorax, pleural effusion, or pulmonary edema. The cardiomediastinal contour is unremarkable. No acute osseous findings are seen. XR/XR chest 1V IMPRESSION: No acute cardiopulmonary findings.
--- NOTE | ~2021-07-25 | CT_ITS ---
EXAMINATION: CT HEAD WITHOUT CONTRAST CLINICAL INFORMATION: Headache, fall COMPARISON: 05/20/2019 TECHNIQUE: Contiguous axial imaging was performed from the skull base to vertex without intravenous administration of contrast. This CT examination was performed using dose optimization techniques as appropriate, variously including the following: *Automated exposure control *Adjustment of mA and/or kV according to patient size (this includes techniques or standardized protocols for targeted exams where dose is matched to indication/reason for exam; i.e. extremities or head) *Use of iterative reconstruction technique DLP: 715 mGy-cm FINDINGS: There is no evidence of acute intracranial hemorrhage or territorial infarction. No abnormal mass effect or midline shift is seen. Membreno to white matter differentiation is well preserved. No extra-axial fluid collections are identified. The ventricles are normal in size. There is mild periventricular white matter hypoattenuation consistent with chronic small vessel ischemic disease. Mild volume loss is noted. The osseous structures and soft tissues are normal. There is essentially complete opacification of the left maxillary sinus. Moderate right maxillary sinus opacification. Extensive opacification of the left mastoid air cells and frontal sinus. The mastoid air cells are well-aerated. CT/CT head/brain wo con IMPRESSION: No acute intracranial pathology. Paranasal sinus disease.
--- NOTE | 2021-07-25 00:15 | ECG_ITS ---
Test Reason : DIZZINESS Blood Pressure : / mmHG Vent. Rate : 068 BPM Atrial Rate : 068 BPM P-R Int : 170 ms QRS Dur : 098 ms QT Int : 434 ms P-R-T Axes : 061 -12 041 degrees QTc Int : 461 ms Normal sinus rhythm Normal ECG When compared with ECG of 10-APR-2020 12:50, No significant change was found Referred By: Generic ED Physician Electronically Signed By:PAULETTE BRUNER MD
[2021-07-25 00:33] LABS: Hemoglobin 8.5 g/dl (14.0-18.0); Imm Gran Abs Auto 0.02 X10*3/uL (0.00-0.03); MANUAL DIFF FLAG NO; Mean Corpuscular Hemoglobin 36.8 pg (27.0-33.0); Red Blood Count 2.31 X10*6/uL (4.60-5.80)
[2021-07-25 00:45] LABS: Basophils Percent Auto 0.3 % (0-2); Eosinophils Absolute Auto 0.1 X10*3/uL (0.0-0.4); Eosinophils Percent Auto 2.4 % (0-4); Hematocrit 25.9 % (42.0-52.0); Imm Gran Pct Auto 0.3 % (0.0-0.4); Lymphocytes Absolute Auto 0.8 X10*3/uL (1.2-4.9); Lymphocytes Percent Auto 13.6 % (20-40); Mean Corpuscular HGB Conc 32.8 g/dl (31.0-36.0); Mean Corpuscular Volume 112.1 fL (80.0-98.0); Mean Platelet Volume 9.6 fL (9.4-12.4); Monocytes Absolute Auto 0.9 X10*3/uL (0.1-1.2); Monocytes Percent Auto 15.7 % (2-11); Neutrophils Percent Auto 67.7 % (45-73); Platelet Count 93 X10*3/uL (160-400); Red Cell Distribution Width 13.4 % (11.0-16.0); White Blood Count 5.9 X10*3/uL (4.8-10.8)
[2021-07-25 00:50] LABS: Anion Gap 12 (12-20); Blood Urea Nitrogen 11 mg/dL (9-16); Calcium 8.9 mg/dL (8.4-10.2); Carbon Dioxide 23 mmol/L (22-29); Chloride 106 mmol/L (96-108); Creatinine Clr Calc Pharmacy 92.2; Estimated Glomerular Filt Rate > 60; Glucose Random 133 mg/dL (60-115); Potassium 4.2 mmol/L (3.3-5.1); Sodium 137 mmol/L (135-145)
[2021-07-25 00:55] LABS: Troponin-I High Sensitivity 4.1 ng/L (<3.5-35.0)
[2021-07-25 01:39] LABS: Ethanol 15 mg/dL
[2021-07-25 01:42] LABS: Lipase 132 U/L (8-78)
[2021-07-25 01:56] LABS: INTERNATIONAL NORM RATIO 1.3 (0.9-1.1)
[2021-07-25 04:09] LABS: Troponin-I High Sensitivity 5.4 ng/L (<3.5-35.0)
--- NOTE | 2021-07-25 04:22 | PC.NURSE ---
dr aleman at bedside for primary eval. pt reports perez, reports improvement in CP. OBS obtained, sent for processing. pt aware and agreeable to plan for head CT.
--- NOTE | 2021-07-25 04:26 | ED_ITS ---
HPI - Chest Pain General Chief Complaint: Chest Pain Stated Complaint: cp,N/V, dizziness Time Seen by Provider: 07/25/21 01:23 Source: patient Mode of arrival: EMS History of Present Illness HPI narrative: 56-year-old male with history of liver cirrhosis, alcohol dependency as well as vertigo presents with attempting to eat dinner (berries, red wine, hamburger) when patient developed sudden chest pain like someone was standing on his chest, nonradiating, that he rates as a 7 to 8/10 and then had 9 episodes of ?red? vomiting and then developed headache as well as vertigo without visual/hearing/extremity symptoms. Patient states that he has recently had ?darker than usual stools but denies any red blood noted . He also states that he has fallen a couple of times and denies any alcohol withdrawal symptoms in the past. Patient states that he has a headache across his forehead and including the temples that he rates as 10/10. Patient states that he vomited red but attributes that to the food/wine that he consumed. Related Data Home Medications Medication Instructions Recorded Confirmed Vitamin B-1 04/10/20 Vitamin B-12 04/10/20 Vitamin B-6 04/10/20 albuterol sulfate 90 mcg/actuation 2 puff INHALATION Q4-6H PRN 05/26/20 05/26/20 aerosol inhaler pantoprazole 40 mg tablet,delayed 40 mg PO DAILY 05/26/20 05/26/20 release Previous Rx's Medication Instructions Recorded furosemide 40 mg tablet 40 mg PO DAILY #30 tab 04/13/20 spironolactone 100 mg tablet 100 mg PO DAILY #30 tab 04/13/20 (Aldactone) Allergies Allergy/AdvReac Type Severity Reaction Status Date / Time No Known Allergies Allergy Verified 07/25/21 00:18 [No Known Allergies*] Review of Systems Review of Systems: Pertinent positives and negatives as stated in HPI 10 point review of systems is otherwise negative. PMFSH Past Medical History Source: nursing notes reviewed Medical History Asthma Hx of fall Hx pulmonary embolism Status post abdominal paracentesis Surgical History Hx of colonoscopy Social History Social History Household Members: Other Housing: House Do you presently have visiting nurse or other home services: No Alcohol intake: former Year quit: 2019 Substance Use Type: Marijuana Advance Directives: No service: No Current occupational status: employed Physical Exam Vital Signs: Vital Signs: Last Vital Signs Temp 99 F 07/25/21 00:18 Pulse 69 07/25/21 05:17 Resp 16 07/25/21 05:17 BP 135/57 L 07/25/21 05:17 Pulse Ox 97 07/25/21 05:17 BMI result Body Mass Index 25.0 VITAL SIGNS: Reviewed. GENERAL: Well developed, well nourished, in no acute distress. HEAD: Normocephalic/atraumatic EYES: PERRLA, EOMI EARS: Ext canals without abnormality OROPHARYNX: no oral lesions noted, posterior pharynx clear LUNGS: Normal breath sounds. No adventitious sounds or accessory muscle use. SpO2<97> CARDIOVASCULAR: Regular rate and rhythm without noted murmurs ABDOMEN: Soft, diffuse tenderness, non-distended with bowel sounds. ISSA: Noninflamed external hemorrhoids noted, minimal darker stool in the rectal vault, no gross blood, good rectal tone PELVIS: Ecchymosis noted to the right greater trochanteric area and patient states from a prior fall MUSCULOSKELETAL: No tenderness, deformities, or effusions noted on gross inspection. EXTREMITIES: No cyanosis, clubbing or edema. SKIN: Inspection of the skin reveals no rashes NEUROLOGIC: Alert and oriented x 4. Strength and sensation to light touch were grossly intact x 4, no facial asymmetry, no pronator drift but noted tremulousness, heel to mosquera with some shaking of bilateral lower extremities but able to perform Course Course Course Narrative: 56-year-old male with history and clinical presentation consistent with on review of all investigations a combination upper GI bleed, there is a noted 3g drop in hemoglobin, Protonix were ordered, due to the alcohol use, fall, and headache a CT of the head was ordered despite patient otherwise nonfocal. Diffuse abdominal discomfort which may be secondary to pancreatitis/GI bleed although given patient's history of liver cirrhosis and ascites will keep the less likely possibility of SBP in mind. Review of all investigations negative for evidence active bleeding at this time and although guaiac was negative this may be equivocal due to poor sample acquisition. Patient remains hemodynamically stable and the case was discussed with the inpatient hospitalist who accepts admission. MDM - Chest Pain Lab Data Result diagrams: 07/25/21 00:27 07/25/21 00:27 Labs: Lab Results 07/25/21 07/25/21 07/25/21 Range/Units 00:27 00:27 00:27 WBC 5.9 (4.8-10.8) X10*3/uL RBC 2.31 L (4.60-5.80) X10*6/uL Hgb 8.5 L (14.0-18.0) g/dl Hct 25.9 L (42.0-52.0) % MCV 112.1 H (80.0-98.0) fL MCH 36.8 H (27.0-33.0) pg MCHC 32.8 (31.0-36.0) g/dl RDW 13.4 (11.0-16.0) % Plt Count 93 L (160-400) X10*3/uL MPV 9.6 (9.4-12.4) fL Immature Gran % (Auto) 0.3 (0.0-0.4) % Neut % (Auto) 67.7 (45-73) % Lymph % (Auto) 13.6 L (20-40) % [place] % (Auto) 15.7 H (2-11) % Eos % (Auto) 2.4 (0-4) % Baso % (Auto) 0.3 (0-2) % Lymph # (Auto) 0.8 L (1.2-4.9) X10*3/uL [place] # (Auto) 0.9 (0.1-1.2) X10*3/uL Eos # (Auto) 0.1 (0.0-0.4) X10*3/uL Baso # (Auto) 0.0 (0.0-0.2) X10*3/uL Abs Immat Gran (auto) 0.02 (0.00-0.03) X10*3/uL Absolute Neuts (auto) 4.0 (2.0-8.3) x10*3/uL Absolute Nucleated RBC 0.000 (0.0-0.012) X10*3/uL Nucleated RBC % (auto) 0.0 (0.0-0.2) /100WBC PT (9.9-13.0) SEC INR (0.9-1.1) Sodium 137 (135-145) mmol/L Potassium 4.2 (3.3-5.1) mmol/L Chloride 106 (96-108) mmol/L Carbon Dioxide 23 (22-29) mmol/L Anion Gap 12 (12-20) BUN 11 (9-16) mg/dL Creatinine 0.97 (0.5-1.4) mg/dL Estim Creat Clear Calc 92.2 Estimated GFR > 60 Random Glucose 133 H (60-115) mg/dL Calcium 8.9 D (8.4-10.2) mg/dL Total Bilirubin 3.0 H (0.0-1.0) mg/dL Direct Bilirubin 1.8 H (0.0-0.5) mg/dL AST 68 H (5-37) U/L ALT 20 (0-40) U/L Alkaline Phosphatase 181 H (39-117) U/L Troponin I High Sens 4.1 (<3.5-35.0) ng/L Total Protein 7.6 (6.5-8.0) g/dL Albumin 3.2 L D (3.5-5.0) g/dL Lipase 132 H (8-78) U/L Stool Occult Blood (NEGATIVE) Ethyl Alcohol mg/dL Blood Type Antibody Screen 07/25/21 07/25/21 07/25/21 Range/Units 00:27 01:38 03:38 WBC (4.8-10.8) X10*3/uL RBC (4.60-5.80) X10*6/uL Hgb (14.0-18.0) g/dl Hct (42.0-52.0) % MCV (80.0-98.0) fL MCH (27.0-33.0) pg MCHC (31.0-36.0) g/dl RDW (11.0-16.0) % Plt Count (160-400) X10*3/uL MPV (9.4-12.4) fL Immature Gran % (Auto) (0.0-0.4) % Neut % (Auto) (45-73) % Lymph % (Auto) (20-40) % [place] % (Auto) (2-11) % Eos % (Auto) (0-4) % Baso % (Auto) (0-2) % Lymph # (Auto) (1.2-4.9) X10*3/uL [place] # (Auto) (0.1-1.2) X10*3/uL Eos # (Auto) (0.0-0.4) X10*3/uL Baso # (Auto) (0.0-0.2) X10*3/uL Abs Immat Gran (auto) (0.00-0.03) X10*3/uL Absolute Neuts (auto) (2.0-8.3) x10*3/uL Absolute Nucleated RBC (0.0-0.012) X10*3/uL Nucleated RBC % (auto) (0.0-0.2) /100WBC PT 15.0 H (9.9-13.0) SEC INR 1.3 H (0.9-1.1) Sodium (135-145) mmol/L Potassium (3.3-5.1) mmol/L Chloride (96-108) mmol/L Carbon Dioxide (22-29) mmol/L Anion Gap (12-20) BUN (9-16) mg/dL Creatinine (0.5-1.4) mg/dL Estim Creat Clear Calc Estimated GFR Random Glucose (60-115) mg/dL Calcium (8.4-10.2) mg/dL Total Bilirubin (0.0-1.0) mg/dL Direct Bilirubin (0.0-0.5) mg/dL AST (5-37) U/L ALT (0-40) U/L Alkaline Phosphatase (39-117) U/L Troponin I High Sens 5.4 (<3.5-35.0) ng/L Total Protein (6.5-8.0) g/dL Albumin (3.5-5.0) g/dL Lipase (8-78) U/L Stool Occult Blood (NEGATIVE) Ethyl Alcohol 15 mg/dL Blood Type Antibody Screen 07/25/21 07/25/21 Range/Units 03:38 04:16 WBC (4.8-10.8) X10*3/uL RBC (4.60-5.80) X10*6/uL Hgb (14.0-18.0) g/dl Hct (42.0-52.0) % MCV (80.0-98.0) fL MCH (27.0-33.0) pg MCHC (31.0-36.0) g/dl RDW (11.0-16.0) % Plt Count (160-400) X10*3/uL MPV (9.4-12.4) fL Immature Gran % (Auto) (0.0-0.4) % Neut % (Auto) (45-73) % Lymph % (Auto) (20-40) % [place] % (Auto) (2-11) % Eos % (Auto) (0-4) % Baso % (Auto) (0-2) % Lymph # (Auto) (1.2-4.9) X10*3/uL [place] # (Auto) (0.1-1.2) X10*3/uL Eos # (Auto) (0.0-0.4) X10*3/uL Baso # (Auto) (0.0-0.2) X10*3/uL Abs Immat Gran (auto) (0.00-0.03) X10*3/uL Absolute Neuts (auto) (2.0-8.3) x10*3/uL Absolute Nucleated RBC (0.0-0.012) X10*3/uL Nucleated RBC % (auto) (0.0-0.2) /100WBC PT (9.9-13.0) SEC INR (0.9-1.1) Sodium (135-145) mmol/L Potassium (3.3-5.1) mmol/L Chloride (96-108) mmol/L Carbon Dioxide (22-29) mmol/L Anion Gap (12-20) BUN (9-16) mg/dL Creatinine (0.5-1.4) mg/dL Estim Creat Clear Calc Estimated GFR Random Glucose (60-115) mg/dL Calcium (8.4-10.2) mg/dL Total Bilirubin (0.0-1.0) mg/dL Direct Bilirubin (0.0-0.5) mg/dL AST (5-37) U/L ALT (0-40) U/L Alkaline Phosphatase (39-117) U/L Troponin I High Sens (<3.5-35.0) ng/L Total Protein (6.5-8.0) g/dL Albumin (3.5-5.0) g/dL Lipase (8-78) U/L Stool Occult Blood NEGATIVE (NEGATIVE) Ethyl Alcohol mg/dL Blood Type O Positive Antibody Screen NEGATIVE Critical Care Time Critical Care Time Critical Care Time: Yes Total Critical Care Time: 30 Attestation: I personally attest to this time spent taking care of the patient. Discharge Plan Discharge Clinical Impression: Alcohol abuse, Cirrhosis of liver, Ascites, Pancreatitis, GI bleed, Multiple falls Patient Disposition: Admitted As Inpatient Prescriptions: No Action Vitamin B-1 0RF Vitamin B-12 0RF Vitamin B-6 0RF furosemide 40 mg Tablet 40 mg PO DAILY Qty: 30 0RF Protocol: Hold for SBP< HOLD for SBP < : 90 spironolactone [Aldactone] 100 mg tablet 100 mg PO DAILY Qty: 30 0RF pantoprazole 40 mg Tablet,Delayed Release (Dr/Ec) 40 mg PO DAILY 0RF albuterol sulfate 90 mcg/actuation Hfa Aerosol Inhaler 2 puff INHALATION Q4-6H PRN (Reason: Shortness Of Breath) 0RF
[2021-07-25 04:28] LABS: OBS Int Ctl Valid YES; OBS1 NEGATIVE (NEGATIVE)
[2021-07-25 05:10] LABS: Alanine Aminotransferase 20 U/L (0-40); Albumin Level 3.2 g/dL (3.5-5.0); Alkaline Phosphatase 181 U/L (39-117); Aspartate Amino Transferase 68 U/L (5-37); Bilirubin Direct 1.8 mg/dL (0.0-0.5); Total Protein 7.6 g/dL (6.5-8.0)
[2021-07-25] MEDS: iohexoL 350 MG/ML 100 ML INFUS..BTL 85 ML IV (05:17)
[2021-07-25] MEDS: Pantoprazole Sodium 40 MG/10 ML VIAL 80 MG IVPUSH (05:22)
[2021-07-25] MEDS: 0.9 % Sodium Chloride 1,000 ML 999 ML IV (06:37)
[2021-07-25] MEDS: chlordiazePOXIDE HCl 25 MG CAPSULE PO (06:38)
[2021-07-25 07:05] LABS: Troponin-I High Sensitivity 4.8 ng/L (<3.5-35.0)
--- NOTE | 2021-07-25 09:22 | PHA.MEDREC ---
Pharmacy Consult ? Medication Reconciliation Pharmacy has completed the medication reconciliation... Patient reports taking one tablet of furosemide 40 mg instead of 2 as the prescription states. Alledgely takes the generic of zoloft however the only medications filled similar to zoloft is escitalopram last filled in april 2021. Reports taking pantoprazole last filled in 2020. Meron Maurice, PharmD
--- NOTE | 2021-07-25 10:14 | PM.IMHP ---
History of Present Illness Date of Service: 07/25/21 Attending physician on admission: Forrest Alfonso Chief Complaint: Chest pain 56-year-old gentleman with past medical history significant for cirrhosis of liver, alcohol abuse, history of esophageal varices and portal hypertensive gastropathy, chronic vertigo, presented to [facility] with acute onset of chest pain that he described as severe pain as if someone standing on his chest nonradiating 12/27, followed by nausea and vomited multiple episodes up to 8- 9 times of red color vomiting, according to patient he had blackberries, strawberries, red wine and hamburger for dinner, his symptoms were accompanied with vertigo and frontal headache, he denies a sedated shortness of diaphoresis, patient also noticed dark-colored stool in last few days he okay mosquera Ali takes ibuprofen last use was 3 weeks ago he denies associated abdominal discomfort no diarrhea, denies urinary symptoms, denies prior episodes of GI bleed, lasts upper endoscopy was 05/31/2020 that showed esophageal varices and portal hypertensive gastropathy, patient admits to drinking 3-4 glasses of wine few times per week last intake was 17:30 last evening, he denies withdrawal symptoms, since in the ER patient has had no recurrent episode of hematemesis, no melena he feels better dizziness and chest pain has resolved continue to have mild headache, workup in the ER showed EKG with no acute ischemic changes normal troponin hematocrit of 25.9 last hematocrit February 2021 was 32.6, platelet count of 93 and chronically elevated LFTs patient is being admitted with a diagnosis of acute on chronic anemia with history of B12 folic acid deficiency. Review of Systems Review of Systems: General headache , positive dizziness, no fever chills. CVS chest pain, no palpitation. Respiratory no cough, no sob. Gastrointestinal hematemesis dark-colored stool no urinary urgency, no frequency Musculoskeletal no pain Skin no rash Yes all other systems are reviewed and are negative [facility] Medical History Asthma Hx of fall Hx pulmonary embolism Status post abdominal paracentesis Pertinent family history: No family history of colon cancer Surgical History Hx of colonoscopy Social History Household Members: Family Household Members Other:: mother Housing: House Do you presently have visiting nurse or other home services: No Alcohol intake: former Year quit: 2019 Patient Tobacco Use Status: Never used Tobacco e-Cigarette/Vaping Use: Never Used Second Hand Smoke Exposure: No Use of substances other than those prescribed or required for medical reasons: Yes Substance Use Type: Marijuana Substance Use Frequency: Occasionally Last Used Substance: Days (ago) Currently Displaying Signs/Symptoms of Drug Intoxication Withdrawal: No Any prior treatment program specific to substance use: No Have you been hit, kicked, punched, or otherwise hurt by someone within the past year? If so, by whom?: No Do you feel safe in your current relationship?: No Current Relationship Is there a partner from a previous relationship who is making you feel unsafe now?: No Are you made to feel afraid or neglected: No Advance Directives: No Do you have thoughts of harming others: None Do you have a plan to hurt others: No Plan Recently lost weight without trying: No How much weight loss: Not applicable Eating poorly because of decreased appetite: No Nutrition screen score: 0 Nutrition Risks: No Nutritional Risk Poor oral hygiene: No service: No Current occupational status: employed Meds Allergies Allergy/AdvReac Type Severity Reaction Status Date / Time No Known Allergies Allergy Verified 07/25/21 00:18 [No Known Allergies*] Active Medications: Current Medications Acetaminophen (Acetaminophen 325 Mg Tablet) 650 mg PO Q6H PRN PRN Reason: Pain, Mild (Pain Scale 1-3) Dextrose/Sodium Chloride (D5ns) 1,000 mls @ 80 mls/hr IVCONT .[id number] [facility] Ondansetron HCl (Ondansetron Hcl 4 Mg/2 Ml Vial) 4 mg IVPUSH Q8H PRN PRN Reason: Nausea and Vomiting Pantoprazole Sodium (Pantoprazole Sodium 40 Mg/10 Ml Vial) 40 mg IVPUSH BID@0630,1630 [facility] Sodium Chloride (0.9 % Sodium Chloride Flush 3 Ml Syringe) 3 ml IVFLUSH QSHIFT [facility] Home Medications Medication Instructions Recorded Confirmed Last Taken Type albuterol sulfate 90 mcg/actuation 2 puff INHALATION Q4-6H PRN 05/26/20 07/25/21 Unknown History aerosol inhaler pantoprazole 40 mg tablet,delayed 40 mg PO DAILY 05/26/20 07/25/21 Unknown History release atorvastatin 10 mg tablet 1 tab PO DAILY 07/25/21 07/25/21 Unknown History cyanocobalamin (vitamin B-12) 1,000 mcg PO DAILY 07/25/21 07/25/21 Unknown History 1,000 mcg tablet escitalopram oxalate 10 mg tablet 1 tab PO DAILY 07/25/21 07/25/21 Unknown History magnesium oxide 400 mg (241.3 mg 1 tab PO DAILY 07/25/21 07/25/21 Unknown History magnesium) tablet meclizine 25 mg tablet 1 tab PO TID PRN 07/25/21 07/25/21 Unknown History multivitamin 1 tab PO DAILY 07/25/21 07/25/21 Unknown History pyridoxine (vitamin B6) 100 mg 100 mg PO DAILY 07/25/21 07/25/21 Unknown History tablet thiamine HCl (vitamin B1) 100 mg 100 mg PO DAILY 07/25/21 07/25/21 Unknown History tablet Physical Exam Vital Signs and Narrative: Vital Signs: Last Vital Signs Temp 99 F 07/25/21 00:18 Pulse 67 07/25/21 08:58 Resp 18 07/25/21 08:58 BP 112/59 L 07/25/21 08:58 Pulse Ox 97 07/25/21 08:58 BMI result Body Mass Index 25.0 Const: Other: General resting comfortably in no acute distress. HEENT PERRLA, anicteric sclerae Neck supple no JVD. CVS regular rate rhythm, Respiratory lungs clear to auscultation, no respiratory distress, no wheeze, no rhonchi. Gastrointestinal abdomen soft, epigastric tenderness to palpation, bowel sounds audible, no guarding , no rigidity. Extremities no edema. Neuro nonfocal , no tremor Skin no rash Psych appropriate affect Results Labs CBC and Chem 7: 07/26/21 08:24 07/25/21 00:27 Labs: Laboratory Results - last 24 hr 07/25/21 07/25/21 07/25/21 00:27 00:27 00:27 MCV 112.1 H MCH 36.8 H MCHC 32.8 RDW 13.4 Plt Count 93 L MPV 9.6 Immature Gran % (Auto) 0.3 Neut % (Auto) 67.7 Lymph % (Auto) 13.6 L [place] % (Auto) 15.7 H Eos % (Auto) 2.4 Baso % (Auto) 0.3 Lymph # (Auto) 0.8 L [place] # (Auto) 0.9 Eos # (Auto) 0.1 Baso # (Auto) 0.0 Abs Immat Gran (auto) 0.02 Absolute Neuts (auto) 4.0 Absolute Nucleated RBC 0.000 Nucleated RBC % (auto) 0.0 Smear Path Review Cancelled PT INR Anion Gap 12 Estim Creat Clear Calc 92.2 Estimated GFR > 60 Random Glucose 133 H Calcium 8.9 D Total Bilirubin 3.0 H Direct Bilirubin 1.8 H AST 68 H ALT 20 Alkaline Phosphatase 181 H Total Protein 7.6 Albumin 3.2 L D Lipase 132 H Stool Occult Blood Ethyl Alcohol 15 Blood Type Antibody Screen 07/25/21 07/25/21 07/25/21 01:38 03:38 04:16 MCV MCH MCHC RDW Plt Count MPV Immature Gran % (Auto) Neut % (Auto) Lymph % (Auto) [place] % (Auto) Eos % (Auto) Baso % (Auto) Lymph # (Auto) [place] # (Auto) Eos # (Auto) Baso # (Auto) Abs Immat Gran (auto) Absolute Neuts (auto) Absolute Nucleated RBC Nucleated RBC % (auto) Smear Path Review PT 15.0 H INR 1.3 H Anion Gap Estim Creat Clear Calc Estimated GFR Random Glucose Calcium Total Bilirubin Direct Bilirubin AST ALT Alkaline Phosphatase Total Protein Albumin Lipase Stool Occult Blood NEGATIVE Ethyl Alcohol Blood Type O Positive Antibody Screen NEGATIVE Imaging Radiologist's Impressions: Impressions Chest X-Ray 07/25/21 00:45 IMPRESSION: No acute cardiopulmonary findings. Head CT 07/25/21 04:46 IMPRESSION: No acute intracranial pathology. Paranasal sinus disease. Abdomen/Pelvis CT 07/25/21 05:10 IMPRESSION: 1. No active gastrointestinal hemorrhage identified. 2. Varices along the distal esophagus and proximal stomach. 3. Slightly nodular hepatic contour, suggesting cirrhosis. Trace free fluid. 4. Colonic diverticulosis without convincing diverticulitis. 5. Cholelithiasis with nonspecific slight gallbladder wall thickening. If clinically warranted, this could be further assessed with ultrasound. Assessment and Plan (1) Cirrhosis of liver: Status: Acute (2) Alcohol abuse: Status: Acute (3) GI bleed: Status: Acute Plan 56-year-old gentleman with past medical history significant for cirrhosis of liver due to alcohol use, history of chronic anemia presented to [facility] with acute onset of chest pain associated with hematemesis dark-colored stools dizziness and headache patient has been diagnosed to have acute on chronic anemia likely related to upper GI bleed will be admitted for further treatment and evaluation. Chest pain likely epigastric discomfort, normal troponin and EKG, no further cardiac workup warranted will treat gastritis and follow clinical course. Acute on chronic anemia due to acute GI bleed Significant drop in hct, in last several months from 32.6 in February to 25.9 likely due to GI bleed from gastropathy/gastritis less likely variceal bleed Will follow CBC if noted to have further drop in hematocrit will transfuse blood, keep NPO, IV Protonix obtain GI consultation Strongly recommend to abstain from alcohol Has chronic B12 and folic acid anemia will continue replacement therapy Acute on chronic dizziness and headache Dizziness improved, continue IV fluids and as needed meclizine Chronic alcohol abuse no evidence of withdrawal Counseling done obtain care team consult Elevated lipase no evidence of pancreatitis likely due to peptic ulcer disease Cirrhosis of liver due to alcohol abuse LFTs are elevated but within baseline range recommend to abstain from alcohol Thrombocytopenia platelet count 71588 likely due to cirrhosis follow CBC closely transfuse if less than 30,000 GI prophylaxis with compression boots avoid heparin due to GI bleed and thrombocytopenia Quality Stroke Does the patient have a stroke diagnosis?: No VTE Prior VTE?: No VTE Risk Level:: Medical - moderate - high VTE Device Contraindication: N/A - Device Ordered VTE Drug Contraindication: Treatment Not Indicated
[2021-07-25] MEDS: Dextrose 5 % and 0.9 % NaCl 1,000 ML 80 ML IVCONT ×2 (11:02→23:22)
[2021-07-25 11:18] LABS: Iron 49 mcg/dL (45-160); Magnesium 1.7 mg/dL (1.6-2.6); Percent Iron Saturation 20 % (15-50); Total Iron Binding Capacity 250 mcg/dL (228-428); Unsaturated Iron Binding 201 ug/dL
[2021-07-25 11:38] LABS: Ferritin 414 ng/mL (20-250)
--- NOTE | 2021-07-25 14:33 | PC.NURSE ---
alert. nad, skin wpd,
[2021-07-25 15:15] LABS: COVID-19 Test Negative (Negative)
--- NOTE | 2021-07-25 16:47 | PC.NURSE ---
Pt alert and oriented x4, calm and cooperative. Reports mild headache, denies chest pain, denies N/V. IV intact. Vitals stable. Report given to DALE Molina to room 486 on tele monitor.
[2021-07-25] MEDS: Pantoprazole Sodium 40 MG/10 ML VIAL IVPUSH (17:08)
[2021-07-26] VITALS (11 sets, daily range): BP systolic 103–134; BP diastolic 50–71; PULSE 67–78; RESP 17–20; TEMP 37.1–38; O2SAT 94–98
[2021-07-26] MEDS: Pantoprazole Sodium 40 MG/10 ML VIAL IVPUSH ×2 (05:59→16:45)
[2021-07-26] MEDS: Pyridoxine HCl (Vitamin B6) 50 MG TABLET 100 MG PO (08:34)
[2021-07-26] MEDS: Multivitamin TABLET 1 TAB PO (08:34)
[2021-07-26] MEDS: Magnesium Oxide 400 MG TABLET PO (08:34)
[2021-07-26] MEDS: Thiamine HCL 100 MG TABLET PO (08:34)
[2021-07-26] MEDS: Escitalopram Oxalate 10 MG TABLET PO (08:34)
[2021-07-26] MEDS: Cyanocobalamin (Vitamin B-12) 1,000 MCG TABLET 1000 MCG PO (08:34)
[2021-07-26] MEDS: 0.9 % Sodium Chloride Flush 3 ML SYRINGE IVFLUSH ×2 (08:35→16:45)
[2021-07-26 08:59] LABS: Hematocrit 23.5 % (42.0-52.0); Hemoglobin 7.6 g/dl (14.0-18.0); Mean Corpuscular HGB Conc 32.3 g/dl (31.0-36.0); Mean Corpuscular Hemoglobin 37.1 pg (27.0-33.0); Mean Platelet Volume 9.9 fL (9.4-12.4); Red Blood Count 2.05 X10*6/uL (4.60-5.80); Red Cell Distribution Width 13.4 % (11.0-16.0); White Blood Count 4.1 X10*3/uL (4.8-10.8)
[2021-07-26 09:10] LABS: Mean Corpuscular Volume 114.6 fL (80.0-98.0); Platelet Count 79 X10*3/uL (160-400)
--- NOTE | 2021-07-26 09:48 | MHC.CM.PN ---
met with pt who reports that he lives with his mother ..pt does not expect to need servceis when dcd he is vax x 3 has own ride home
[2021-07-26] MEDS: Dextrose 5 % and 0.9 % NaCl 1,000 ML 80 ML IVCONT ×2 (11:14→22:09)
--- NOTE | 2021-07-26 15:12 | MHC.RECOVRN ---
Met with pt in 486 after consult placed to CARE Team for alcohol use. Pt denies problematic alcohol use, states I used to have a problem. Pt currently drinking alcohol a couple times a week. Pt reports significant decrease in use since last summer and is not looking to abstain. Has utilized AA. Pt not actively engaging in conversation. Pt educated regarding recovery supports and services, denies referrals at this time. Discussed medications for AUD, pt would like time to think about the information. Pt provided with many resources as well as t/w contact information if needed. Will continue to follow. 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 Madiha Pena APRN.
--- NOTE | 2021-07-26 16:19 | MHC.SHP ---
Pre-Procedural Eval Section A Date of Service: 07/26/21 The patient is an INPATIENT: Yes Changes since office visit: No Cold of Flu in the past 2 weeks, No New Medical Problems, No Changes in Medication and No Patient answered all questions The History & Physical has been completed within 30 days and I have reviewed it.: Yes Section B Chief Complaint: Upper GI bleed Allergies: Allergies Allergy/AdvReac Type Severity Reaction Status Date / Time No Known Allergies Allergy Verified 07/25/21 00:18 [No Known Allergies*] Plan I have reviewed the history and physical and performed a pertinent physical examination on my patient. No changes have occurred unless specified.
--- NOTE | 2021-07-26 16:19 | PM.EVENT ---
Event Note Date of Service: 07/26/21 Event Note: GI consult dictated EGD planned for 07/27for further evaluation of anemia and question of UGI blood loss.
--- NOTE | 2021-07-26 16:24 | P.PNIM_ITS ---
Subjective Subjective Date of Service: 07/26/21 Interval History: Feeling tired and has dizziness with standing, has chronic intermittent dizziness since a fall, otherwise offers no acute symptoms of recurrent GI bleed no abdominal pain no nausea no vomiting, tolerating clear liquid diet, no melena. Review of Systems Review of Systems: Yes all other systems are reviewed and are negative Physical Exam Vital Signs: Vital Signs: Last Vital Signs Temp 99.7 F 07/26/21 15:14 Pulse 69 07/26/21 15:14 Resp 20 07/26/21 15:14 BP 113/59 L 07/26/21 15:14 Pulse Ox 97 07/26/21 15:14 BMI result Body Mass Index 25.0 Const: Other: General resting co mfortably in no ac kerry distress.? AJIT NT PERRLA, anicter ic sclerae Neck ahmadi pple no JVD. CVS? regular rate rhyth m, Respiratory jake gs clear to auscul tation, no respira tory distress, no wheeze, no rhonchi . Gastrointestinal abdomen soft, epi gastric tenderness to palpation, bow el sounds audible, no guarding , no rigidity. Extremit ies no edema. Neur o nonfocal , no tr emor Skin no rash Psych appropriate affect Objective Data Active Medications Acetaminophen (Acetaminophen 325 Mg Tablet) 650 mg PO Q6H PRN PRN Reason: Pain, Mild (Pain Scale 1-3) Albuterol Sulfate (Albuterol Sulfate 90 Mcg 8 Gm Inhaler) 2 puff INHALE Q4H PRN PRN Reason: Shortness Of Breath Cyanocobalamin (Cyanocobalamin (Vitamin B-12) 1,000 Mcg Tablet) 1,000 mcg PO DAILY [facility] Last Admin: 07/26/21 08:34 Dose: 1,000 mcg Documented by: JUSTINA Escitalopram Oxalate (Escitalopram Oxalate 10 Mg Tablet) 10 mg PO DAILY [facility] Last Admin: 07/26/21 08:34 Dose: 10 mg Documented by: JUSTINA Dextrose/Sodium Chloride (D5ns) 1,000 mls @ 80 mls/hr IVCONT .[id number] [facility] Last Admin: 07/26/21 11:14 Dose: 80 mls/hr Documented by: JUSTINA Magnesium Oxide (Magnesium Oxide 400 Mg Tablet) 400 mg PO DAILY [facility] Last Admin: 07/26/21 08:34 Dose: 400 mg Documented by: JUSTINA Multivitamins/Vitamin C (Multivitamin Tablet) 1 tab PO DAILY [facility] Last Admin: 07/26/21 08:34 Dose: 1 tab Documented by: JUSTINA Ondansetron HCl (Ondansetron Hcl 4 Mg/2 Ml Vial) 4 mg IVPUSH Q8H PRN PRN Reason: Nausea and Vomiting Pantoprazole Sodium (Pantoprazole Sodium 40 Mg/10 Ml Vial) 40 mg IVPUSH BID@0630,1630 [facility] Last Admin: 07/26/21 05:59 Dose: 40 mg Documented by: LAYTON Pyridoxine HCl (Pyridoxine Hcl (Vitamin B6) 50 Mg Tablet) 100 mg PO DAILY [facility] Last Admin: 07/26/21 08:34 Dose: 100 mg Documented by: JUSTINA Sodium Chloride (0.9 % Sodium Chloride Flush 3 Ml Syringe) 3 ml IVFLUSH QSHIFT [facility] Last Admin: 07/26/21 08:35 Dose: 3 ml Documented by: JUSTINA Thiamine HCl (Thiamine Hcl 100 Mg Tablet) 100 mg PO DAILY [facility] Last Admin: 07/26/21 08:34 Dose: 100 mg Documented by: JUSTINA Labs CBC & Chem 7: 07/26/21 08:24 07/25/21 00:27 Labs: Laboratory Results - last 24 hr 07/26/21 08:24 MCV 114.6 H MCH 37.1 H MCHC 32.3 RDW 13.4 Plt Count 79 L MPV 9.9 Absolute Nucleated RBC 0.000 Nucleated RBC % (auto) 0.0 Assessment and Plan (1) Alcohol abuse: Status: Acute (2) Cirrhosis of liver: Status: Acute (3) GI bleed: Status: Acute Plan 56-year-old gentleman with past medical history significant for cirrhosis of liver due to alcohol use, history of chronic anemia presented to [facility] with acute onset of chest pain associated with hematemesis dark-colored stools dizziness and headache patient has been diagnosed to have acute on chronic anemia likely related to upper GI bleed will be admitted for further treatment and evaluation. Chest pain resolved was likely epigastric discomfort, normal troponin and EKG, no further cardiac workup warranted will treat gastritis and follow clinical course. Acute on chronic anemia due to acute GI bleed Denies abdominal pain had dark-colored stools this morning, no recurrent hematemesis Significant drop in hct, in last several months from 32.6 in February to 25.9 likely due to GI bleed from gastropathy/gastritis less likely variceal bleed Hematocrit dropped to 23.5 this morning will transfuse 1 unit of packed RBC Normal iron studies Follow CBC at a.m. continue IV protonix, follow GI recommendation Advanced diet to regular, DC IV fluid, NPO at a.m. for possible GI procedure Strongly recommend to abstain from alcohol Has chronic B12 and folic acid anemia will continue replacement therapy Acute on chronic dizziness and headache Recurrent Dizziness continue as needed meclizine, recommend outpatient vestibular rehab Chronic alcohol abuse no evidence of withdrawal Counseling done, follow care team consult Elevated lipase no evidence of pancreatitis likely due to peptic ulcer disease repeat lipase at a.m. Cirrhosis of liver due to alcohol abuse LFTs are elevated but within baseline range recommend to abstain from alcohol Thrombocytopenia platelet count dropped to 79,000 from [id number] likely due to cirrhosis follow CBC closely transfuse if less than 30,000 GI prophylaxis with compression boots avoid heparin due to GI bleed and thrombocytopenia Quality Stroke Does the patient have a stroke diagnosis?: No VTE Prior VTE?: No VTE Risk Level:: Medical - moderate - high VTE Device Contraindication: N/A - Device Ordered VTE Drug Contraindication: Treatment Not Indicated
[2021-07-26] MEDS: Acetaminophen 325 MG TABLET 650 MG PO (19:00)
[2021-07-27] VITALS (7 sets, daily range): BP systolic 104–134; BP diastolic 56–77; PULSE 64–76; RESP 16–18; TEMP 36.5–37.9; O2SAT 95–99
[2021-07-27] MEDS: Dextrose 5 % and 0.9 % NaCl 1,000 ML 80 ML IVCONT (06:02)
[2021-07-27] MEDS: Pantoprazole Sodium 40 MG/10 ML VIAL IVPUSH (06:02)
[2021-07-27 06:47] LABS: Hematocrit 26.3 % (42.0-52.0); Hemoglobin 8.4 g/dl (14.0-18.0); Mean Corpuscular HGB Conc 31.9 g/dl (31.0-36.0); Mean Corpuscular Hemoglobin 35.9 pg (27.0-33.0); Mean Platelet Volume 9.6 fL (9.4-12.4); Red Blood Count 2.34 X10*6/uL (4.60-5.80); Red Cell Distribution Width 15.6 % (11.0-16.0); White Blood Count 4.6 X10*3/uL (4.8-10.8)
[2021-07-27 06:51] LABS: Mean Corpuscular Volume 112.4 fL (80.0-98.0); Platelet Count 83 X10*3/uL (160-400)
[2021-07-27 07:30] LABS: Lipase 50 U/L (8-78)
--- NOTE | 2021-07-27 07:38 | HO.ANESPROP2 ---
HPI - Anesthesia Eval Consult details Narrative: Upper GI bleed PMFSH Active Problems Active Problems: All Active Problems (Updated 07/25/21 @ 06:29 by Maylin Park MD) Acute alcoholic hepatitis (Acute) Cirrhosis of liver (Acute) Ascites (Acute) Alcohol abuse (Acute) Pancreatitis (Acute) GI bleed (Acute) Multiple falls (Acute) Past Medical History Medical History Asthma Hx of fall Hx pulmonary embolism Status post abdominal paracentesis Family History Family history of problems with anesthesia: No Surgical History Surgical History Hx of colonoscopy History of Problems with Anesthesia: No Social History Social History Household Members: Family Household Members Other:: mother Housing: House Do you presently have visiting nurse or other home services: No Alcohol intake: former Year quit: 2020 Patient Tobacco Use Status: Never used Tobacco e-Cigarette/Vaping Use: Never Used Second Hand Smoke Exposure: No Use of substances other than those prescribed or required for medical reasons: Yes Substance Use Type: Marijuana Substance Use Frequency: Occasionally Last Used Substance: Days (ago) Currently Displaying Signs/Symptoms of Drug Intoxication Withdrawal: No Any prior treatment program specific to substance use: No Have you been hit, kicked, punched, or otherwise hurt by someone within the past year? If so, by whom?: No Do you feel safe in your current relationship?: No Current Relationship Is there a partner from a previous relationship who is making you feel unsafe now?: No Are you made to feel afraid or neglected: No Advance Directives: No Do you have thoughts of harming others: None Do you have a plan to hurt others: No Plan Recently lost weight without trying: No How much weight loss: Not applicable Eating poorly because of decreased appetite: No Nutrition screen score: 0 Nutrition Risks: No Nutritional Risk Poor oral hygiene: No service: No Current occupational status: employed Meds Allergies Allergy/AdvReac Type Severity Reaction Status Date / Time No Known Allergies Allergy Verified 07/25/21 00:18 [No Known Allergies*] Active Medications: Current Medications Acetaminophen (Acetaminophen 325 Mg Tablet) 650 mg PO Q6H PRN PRN Reason: Pain, Mild (Pain Scale 1-3) Last Admin: 07/26/21 19:00 Dose: 650 mg Documented by: Albuterol Sulfate (Albuterol Sulfate 90 Mcg 8 Gm Inhaler) 2 puff INHALE Q4H PRN PRN Reason: Shortness Of Breath Cyanocobalamin (Cyanocobalamin (Vitamin B-12) 1,000 Mcg Tablet) 1,000 mcg PO DAILY [facility] Last Admin: 07/26/21 08:34 Dose: 1,000 mcg Documented by: Escitalopram Oxalate (Escitalopram Oxalate 10 Mg Tablet) 10 mg PO DAILY [facility] Last Admin: 07/26/21 08:34 Dose: 10 mg Documented by: Dextrose/Sodium Chloride (D5ns) 1,000 mls @ 80 mls/hr IVCONT .[id number] [facility] Last Admin: 07/27/21 06:02 Dose: 80 mls/hr Documented by: Magnesium Oxide (Magnesium Oxide 400 Mg Tablet) 400 mg PO DAILY [facility] Last Admin: 07/26/21 08:34 Dose: 400 mg Documented by: Multivitamins/Vitamin C (Multivitamin Tablet) 1 tab PO DAILY [facility] Last Admin: 07/26/21 08:34 Dose: 1 tab Documented by: Ondansetron HCl (Ondansetron Hcl 4 Mg/2 Ml Vial) 4 mg IVPUSH Q8H PRN PRN Reason: Nausea and Vomiting Pantoprazole Sodium (Pantoprazole Sodium 40 Mg/10 Ml Vial) 40 mg IVPUSH BID@0630,1630 [facility] Last Admin: 07/27/21 06:02 Dose: 40 mg Documented by: Pyridoxine HCl (Pyridoxine Hcl (Vitamin B6) 50 Mg Tablet) 100 mg PO DAILY [facility] Last Admin: 07/26/21 08:34 Dose: 100 mg Documented by: Sodium Chloride (0.9 % Sodium Chloride Flush 3 Ml Syringe) 3 ml IVFLUSH QSHIFT [facility] Last Admin: 07/27/21 00:03 Dose: Not Given Documented by: Thiamine HCl (Thiamine Hcl 100 Mg Tablet) 100 mg PO DAILY [facility] Last Admin: 07/26/21 08:34 Dose: 100 mg Documented by: Home Medications Medication Instructions Recorded Confirmed Last Taken Type albuterol sulfate 90 mcg/actuation 2 puff INHALATION Q4-6H PRN 05/26/20 07/25/21 Unknown History aerosol inhaler pantoprazole 40 mg tablet,delayed 40 mg PO DAILY 05/26/20 07/25/21 Unknown History release atorvastatin 10 mg tablet 1 tab PO DAILY 07/25/21 07/25/21 Unknown History cyanocobalamin (vitamin B-12) 1,000 mcg PO DAILY 07/25/21 07/25/21 Unknown History 1,000 mcg tablet escitalopram oxalate 10 mg tablet 1 tab PO DAILY 07/25/21 07/25/21 Unknown History magnesium oxide 400 mg (241.3 mg 1 tab PO DAILY 07/25/21 07/25/21 Unknown History magnesium) tablet meclizine 25 mg tablet 1 tab PO TID PRN 07/25/21 07/25/21 Unknown History multivitamin 1 tab PO DAILY 07/25/21 07/25/21 Unknown History pyridoxine (vitamin B6) 100 mg 100 mg PO DAILY 07/25/21 07/25/21 Unknown History tablet thiamine HCl (vitamin B1) 100 mg 100 mg PO DAILY 07/25/21 07/25/21 Unknown History tablet Exam Exam Date and Time: July 27, 2021 0738 Height,Weight and Vital Signs: Height 6 ft Weight 83.915 kg Last Vital Signs Temp 100.2 F 07/27/21 07:15 Pulse 76 07/27/21 07:15 Resp 16 07/27/21 07:15 BP 107/59 L 07/27/21 07:15 Pulse Ox 97 07/27/21 07:15 Pertinent Lab Results Pertinent Lab Results: Laboratory Tests 07/25/21 07/25/21 07/25/21 00:27 00:27 00:27 WBC 5.9 RBC 2.31 L Hgb 8.5 L Hct 25.9 L MCV 112.1 H MCH 36.8 H MCHC 32.8 RDW 13.4 Plt Count 93 L MPV 9.6 Immature Gran % (Auto) 0.3 Neut % (Auto) 67.7 Lymph % (Auto) 13.6 L [place] % (Auto) 15.7 H Eos % (Auto) 2.4 Baso % (Auto) 0.3 Lymph # (Auto) 0.8 L [place] # (Auto) 0.9 Eos # (Auto) 0.1 Baso # (Auto) 0.0 Abs Immat Gran (auto) 0.02 Absolute Neuts (auto) 4.0 Absolute Nucleated RBC 0.000 Nucleated RBC % (auto) 0.0 Smear Path Review SEE NOTE PT INR Sodium 137 Potassium 4.2 Chloride 106 Carbon Dioxide 23 Anion Gap 12 BUN 11 Creatinine 0.97 Estim Creat Clear Calc 92.2 Estimated GFR > 60 Random Glucose 133 H Calcium 8.9 D Magnesium 1.7 Iron 49 TIBC 250 % Saturation 20 Unsat Iron Binding 201 Ferritin 414 H Total Bilirubin 3.0 H Direct Bilirubin 1.8 H AST 68 H ALT 20 Alkaline Phosphatase 181 H Troponin I High Sens 4.1 Total Protein 7.6 Albumin 3.2 L D Lipase 132 H Stool Occult Blood Ethyl Alcohol COVID-19 ([facility]) COVID-[employer] Com Blood Type Antibody Screen Crossmatch 07/25/21 07/25/21 07/25/21 00:27 01:38 03:38 WBC RBC Hgb Hct MCV MCH MCHC RDW Plt Count MPV Immature Gran % (Auto) Neut % (Auto) Lymph % (Auto) [place] % (Auto) Eos % (Auto) Baso % (Auto) Lymph # (Auto) [place] # (Auto) Eos # (Auto) Baso # (Auto) Abs Immat Gran (auto) Absolute Neuts (auto) Absolute Nucleated RBC Nucleated RBC % (auto) Smear Path Review PT 15.0 H INR 1.3 H Sodium Potassium Chloride Carbon Dioxide Anion Gap BUN Creatinine Estim Creat Clear Calc Estimated GFR Random Glucose Calcium Magnesium Iron TIBC % Saturation Unsat Iron Binding Ferritin Total Bilirubin Direct Bilirubin AST ALT Alkaline Phosphatase Troponin I High Sens 5.4 Total Protein Albumin Lipase Stool Occult Blood Ethyl Alcohol 15 COVID-19 ([facility]ICIA) COVID-19 [employer] Blood Type Antibody Screen Crossmatch 07/25/21 07/25/21 07/25/21 03:38 04:16 06:36 WBC RBC Hgb Hct MCV MCH MCHC RDW Plt Count MPV Immature Gran % (Auto) Neut % (Auto) Lymph % (Auto) [place] % (Auto) Eos % (Auto) Baso % (Auto) Lymph # (Auto) [place] # (Auto) Eos # (Auto) Baso # (Auto) Abs Immat Gran (auto) Absolute Neuts (auto) Absolute Nucleated RBC Nucleated RBC % (auto) Smear Path Review PT INR Sodium Potassium Chloride Carbon Dioxide Anion Gap BUN Creatinine Estim Creat Clear Calc Estimated GFR Random Glucose Calcium Magnesium Iron TIBC % Saturation Unsat Iron Binding Ferritin Total Bilirubin Direct Bilirubin AST ALT Alkaline Phosphatase Troponin I High Sens 4.8 Total Protein Albumin Lipase Stool Occult Blood NEGATIVE Ethyl Alcohol COVID-19 ([facility]) COVID-19 Clin Com Blood Type O Positive Antibody Screen NEGATIVE Crossmatch See Detail 07/25/21 07/26/21 07/27/21 14:54 08:24 06:28 WBC 4.1 L 4.6 L RBC 2.05 L 2.34 L Hgb 7.6 L 8.4 L Hct 23.5 L 26.3 L MCV 114.6 H 112.4 H MCH 37.1 H 35.9 H MCHC 32.3 31.9 RDW 13.4 15.6 Plt Count 79 L 83 L MPV 9.9 9.6 Immature Gran % (Auto) Neut % (Auto) Lymph % (Auto) [place] % (Auto) Eos % (Auto) Baso % (Auto) Lymph # (Auto) [place] # (Auto) Eos # (Auto) Baso # (Auto) Abs Immat Gran (auto) Absolute Neuts (auto) Absolute Nucleated RBC 0.000 0.000 Nucleated RBC % (auto) 0.0 0.0 Smear Path Review PT INR Sodium Potassium Chloride Carbon Dioxide Anion Gap BUN Creatinine Estim Creat Clear Calc Estimated GFR Random Glucose Calcium Magnesium Iron TIBC % Saturation Unsat Iron Binding Ferritin Total Bilirubin Direct Bilirubin AST ALT Alkaline Phosphatase Troponin I High Sens Total Protein Albumin Lipase Stool Occult Blood Ethyl Alcohol COVID-19 ([facility]) Negative COVID-19 Clin Com See Note Blood Type Antibody Screen Crossmatch 07/27/21 06:28 WBC RBC Hgb Hct MCV MCH MCHC RDW Plt Count MPV Immature Gran % (Auto) Neut % (Auto) Lymph % (Auto) [place] % (Auto) Eos % (Auto) Baso % (Auto) Lymph # (Auto) [place] # (Auto) Eos # (Auto) Baso # (Auto) Abs Immat Gran (auto) Absolute Neuts (auto) Absolute Nucleated RBC Nucleated RBC % (auto) Smear Path Review PT INR Sodium Potassium Chloride Carbon Dioxide Anion Gap BUN Creatinine Estim Creat Clear Calc Estimated GFR Random Glucose Calcium Magnesium Iron TIBC % Saturation Unsat Iron Binding Ferritin Total Bilirubin Direct Bilirubin AST ALT Alkaline Phosphatase Troponin I High Sens Total Protein Albumin Lipase 50 Stool Occult Blood Ethyl Alcohol COVID-19 ([facility]) COVID-19 Clin Com Blood Type Antibody Screen Crossmatch Airway Mallampati Class: II TM Dist: >3cm Neck ROM: Full Loose/Missing/Broken Teeth: No Heart: [id number] Lungs: cta b/l Assessment and Plan Assessment Anesthesia Assessment: Anesthesia Plan Discussed and Chart Reviewed Final Anesthetic Review Family History of Problems with Anesthesia: No History of Problems with Anesthesia: No NPO: Yes ASA Class: III Final Preanesthetic Review: No Changes in Pt Med Stat, Meds/Allgs Chart Reviewed and Consent Obtained/Reviewed Patient Risk: Intermediate Procedure Risk: Intermediate Assessment/Block/Sedation in SS: Assess/Block/Sedation-SS Anesthetic Plan Anesthetic Plan: MAC: and Agree w/ Assess. and Plan Disposition: Standard PACU
--- NOTE | 2021-07-27 08:28 | PM.EVENT ---
Event Note Date of Service: 07/27/21 Event Note: EGD note dictated Grade 2 nonbleeding esophageal varices, mild portal hypertensive gastropathy rec: advance diet ok for d/c from GI standpoint start nadolol 20 mg daily
--- NOTE | 2021-07-27 09:58 | OP_ITS ---
SURGEON: Jorge Zavala MD INDICATIONS: Upper GI bleeding. PREOPERATIVE DIAGNOSIS: POSTOPERATIVE DIAGNOSIS: PROCEDURE PERFORMED: Upper endoscopy. ESTIMATED BLOOD LOSS: COMPLICATIONS: ANESTHESIA: ASSISTANTS: SPECIMENS: MEDICATIONS: Monitored anesthesia care. DESCRIPTION OF PROCEDURE: History and physical were performed. The risks and benefits of the procedure were explained to the patient. Informed consent was obtained. The patient is placed in the left lateral decubitus position. The Olympus video gastroscope was introduced into the esophagus, stomach, and duodenum. Examination was performed. The scope was removed. He tolerated the procedure well and was taken to recovery area in stable condition. FINDINGS: Esophagus: The esophagus showed 3 chains of grade 2 esophageal varices extending from the EG junction at 40 cm to about 30 cm. There was no stigmata of recent hemorrhage. Stomach: The stomach showed changes of portal hypertensive gastropathy, which were mild. Duodenum: The bulb and second portion were normal. IMPRESSION: Esophageal varices. RECOMMENDATION: 1. Discontinue alcohol use. 2. Begin nadolol 20 mg daily with goal reducing resting heart rate by 20%. MD ELMER Mendoza/HERNAN / [id number]
[2021-07-27] MEDS: Multivitamin TABLET 1 TAB PO (10:00)
[2021-07-27] MEDS: Cyanocobalamin (Vitamin B-12) 1,000 MCG TABLET 1000 MCG PO (10:00)
[2021-07-27] MEDS: Escitalopram Oxalate 10 MG TABLET PO (10:00)
[2021-07-27] MEDS: Magnesium Oxide 400 MG TABLET PO (10:01)
[2021-07-27] MEDS: 0.9 % Sodium Chloride Flush 3 ML SYRINGE IVFLUSH (10:01)
[2021-07-27] MEDS: Thiamine HCL 100 MG TABLET PO (10:01)
[2021-07-27] MEDS: Pyridoxine HCl (Vitamin B6) 50 MG TABLET 100 MG PO (10:01)
--- NOTE | 2021-07-27 10:08 | CONS_ITS ---
DATE OF SERVICE: 07/26/2021 REFERRING PHYSICIAN: Forrest Alfonso MD REASON FOR CONSULTATION: Anemia and questionable hematemesis. HISTORY OF PRESENT ILLNESS: Patient is a pleasant 56-year-old man known to me from prior evaluation. He was admitted to the hospital after presenting to the emergency room on July 25 early in the morning with complaints of chest pain and vomiting. He states he ate dinner, which included a glass of red wine and red fruit including strawberries, raspberries, and grapes. Later that night, he awoke with chest pain, which felt like a crossing sensation in his chest. He denies any reflux symptoms. He had vomiting of red material, but does not think it was blood rather what he ate for supper. He has had some dark stools by his report, but no nory melena. He was evaluated in the emergency department and laboratory work was done, which showed a hematocrit of 25.9, down from 32.6 in February. He has had no bleeding overnight, but his hematocrit this morning was slightly lower at 23.5. He did not require blood transfusion. The patient has a history of alcoholic cirrhosis with ascites and grade 1 esophageal varices at the time of upper endoscopy in May 2020. He has not had previous upper GI bleeding. He denies a history of NSAID usage. He does still continue to drink alcohol, although at much lower quantities than before and he has not required paracentesis recently. He states compliance with his diuretic regimen. PAST MEDICAL HISTORY: 1. Cirrhosis with ascites and history of grade 1 esophageal varices and portal hypertensive gastropathy. 2. Colonoscopy in May 2017, diverticulosis, and 2 hyperplastic rectal polyps. 3. Depression. 4. Vertigo. 5. Asthma. 6. Pulmonary embolism. CURRENT MEDICATIONS: Current medication list is reviewed in the chart. ALLERGIES: THERE ARE NONE REPORTED. FAMILY HISTORY: This is reviewed with the patient and is noncontributory. SOCIAL HISTORY: Alcohol usage as above. He denies other substance use. REVIEW OF SYSTEMS: SKIN: No pruritus. HEENT: Negative. PULMONARY: He denies shortness of breath or chest pain. GASTROINTESTINAL: As above. GENITOURINARY: Negative. NEUROPSYCHIATRIC: Negative. PHYSICAL EXAMINATION: GENERAL: Shows a pleasant male, lying comfortably in bed, reading a book. VITAL SIGNS: Reviewed in the electronic medical record and are stable. SKIN: Anicteric. HEENT: Shows no scleral icterus. NECK: Without lymphadenopathy or thyromegaly. LUNGS: Clear. HEART: Shows a regular rate and rhythm. S1, S2. No murmur. ABDOMEN: Soft without focal masses. Bowel sounds are present. There is no guarding or rebound. EXTREMITIES: Without edema. LABORATORY DATA: Shows a white blood cell count of 4.1, hematocrit 23.5, platelet count 79,000. INR is 1.3. Chemistries show a total bilirubin of 3. AST 68, ALT 20. CT scanning of the abdomen and pelvis is reviewed. This is interpreted as showing a nodular liver consistent with cirrhosis. Varices are seen and trace fluid is noted in the lower abdomen. IMPRESSION: 1. Anemia with question of upper gastrointestinal bleeding. 2. At this point, he appears stable with no evidence of ongoing bleed and his low hematocrit maybe resulting from IV fluid hydration and equilibration. I have recommended he undergo upper endoscopy for further evaluation because of his significant anemia and questionable hematemesis. I have discussed risks and benefits with him. He understands these and agrees to proceed. This will be arranged for tomorrow. I did discuss with him that no alcohol is recommended for patients with alcoholic liver disease. Thank you for asking me to see him. I will follow him in the hospital with you. MD ELMER Mendoza/HERNAN / [id number] MTDD
[2021-07-27] MEDS: nadoloL 20 MG TABLET PO (11:42)
[2021-07-27] MEDS: Acetaminophen 325 MG TABLET 650 MG PO (11:44)
--- NOTE | 2021-07-27 13:49 | P.DS_ITS ---
DS: Providers Provider Date of Service: 07/27/21 Date of admission: 07/25/21 10:04 Date of discharge: 07/27/21 Primary care physician: Fernando Martin MD Consults: 07/25/21 10:09 Consult to Care Team Routine Comment: Reason for consultation: etoh 07/25/21 10:10 Consult to Gastroenterology Routine Consulting Provider: Jorge Zavala Reason for consultation: ugi bleed Has provider been notified: No 07/26/21 16:33 Consult to Care Team Routine Comment: Reason for consultation: etoh DS: Diagnosis Discharge Diagnosis (1) Alcohol abuse: Status: Acute (2) Cirrhosis of liver: Status: Acute (3) GI bleed: Status: Acute DS: Summary Status at Discharge Cognitive/behavioral status at discharge: 56-year-old gentleman with past medical history significant for cirrhosis of liver, alcohol abuse, history of esophageal varices and portal hypertensive gastropathy, chronic vertigo, presented to [facility] with acute onset of chest pain that he described as severe pain as if someone standing on his chest nonradiating 12/27, followed by nausea and vomited multiple episodes up to 8- 9 times of red color vomiting, according to patient he had blackberries, strawberries, red wine and hamburger for dinner, his symptoms were accompanied with vertigo and frontal headache, he denies a sedated shortness of diaphoresis, patient also noticed dark-colored stool in last few days he okay mosquera Ali takes ibuprofen last use was 3 weeks ago he denies associated abdominal discomfort no diarrhea, denies urinary symptoms, denies prior episodes of GI bleed, lasts upper endoscopy was 05/31/2020 that showed esophageal varices and portal hypertensive gastropathy, patient admits to drinking 3-4 glasses of wine few times per week last intake was 17:30 last evening, he denies withdrawal symptoms, since in the ER patient has had no recurrent episode of hematemesis, no melena he feels better dizziness and chest pain has resolved continue to have mild headache, workup in the ER showed EKG with no acute ischemic changes normal troponin hematocrit of 25.9 last hematocrit February 2021 was 32.6, platelet count of 93 and chronically elevated LFTs patient is being admitted with a diagnosis of acute on chronic anemia with history of B12 folic acid deficiency. Hospital Course Admitted; seen by GI in consult. On 07/27/2021 underwent upper endoscopy which demonstrated grade 2 nonbleeding esophageal varices along with mild portal hypertensive gastropathy. Patient was started on nadolol [address] Zavala and cleared for discharge to follow-up with PCP. At this point time has eaten and is Medical except a bbl for discharge Time Spent with Patient Time attestation: Total time spent providing and/or coordinating discharge services: Discharge coordination time: Greater than 30 minutes Quality: Stroke Does the patient have a stroke diagnosis?: No Physical Exam Vital Signs: Vital Signs: Last Vital Signs Temp 99.2 F 07/27/21 11:34 Pulse 74 07/27/21 11:34 Resp 16 07/27/21 11:34 BP 113/77 07/27/21 11:34 Pulse Ox 95 07/27/21 11:34 BMI result Body Mass Index 25.0 Const: Other: Awake alert oriented x3 no acute distress Resp: Other: Clear to auscultation bilaterally Cardio: Other: No S4; positive S1-S2; no S3 murmurs rubs or gallops GI: Other: Soft nontender nondistended with normoactive bowel sounds Neuro: Other: Cranial nerves 2-12 grossly intact as tested. Motor is 5/5 all extremities. Sensation is intact. Cognition is normal Extrem: Other: No edema bilaterally DS: Data Data Completed and Pending Completed studies during hospitalization [Text1]: Procedures Drainage of Peritoneal Cavity, Percutaneous Approach (04/10/20) Labs on day of discharge: Laboratory Results - last 24 hr 07/25/21 07/27/21 07/27/21 03:38 06:28 06:28 WBC 4.6 L RBC 2.34 L Hgb 8.4 L Hct 26.3 L MCV 112.4 H MCH 35.9 H MCHC 31.9 RDW 15.6 Plt Count 83 L MPV 9.6 Absolute Nucleated RBC 0.000 Nucleated RBC % (auto) 0.0 Lipase 50 Blood Type O Positive Antibody Screen NEGATIVE Crossmatch See Detail Discharge Plan Discharge Patient Disposition: Home, Self-Care Discharge Diagnosis: UGIB Referrals: Fernando Martin MD [Primary Care Provider] - 1 Week Discharge Medications: New nadolol 20 mg Tablet 20 mg PO DAILY Qty: 30 0RF Protocol: Hold for SBP/HR < HOLD for SBP < : 90 HOLD for HR < : 60 Continued furosemide 40 mg Tablet 40 mg PO DAILY Qty: 30 0RF Protocol: Hold for SBP< HOLD for SBP < : 90 pantoprazole 40 mg Tablet,Delayed Release (Dr/Ec) 40 mg PO DAILY 0RF albuterol sulfate 90 mcg/actuation Hfa Aerosol Inhaler 2 puff INHALATION Q4-6H PRN (Reason: Shortness Of Breath) 0RF multivitamin Tablet 1 tab PO DAILY 0RF atorvastatin 10 mg tablet 1 tab PO DAILY 0RF cyanocobalamin (vitamin B-12) 1,000 mcg Tablet 1,000 mcg PO DAILY 0RF thiamine HCl (vitamin B1) 100 mg Tablet 100 mg PO DAILY 0RF magnesium oxide 400 mg (241.3 mg magnesium) tablet 1 tab PO DAILY 0RF meclizine 25 mg tablet 1 tab PO TID PRN (Reason: dizziness) 0RF pyridoxine (vitamin B6) 100 mg Tablet 100 mg PO DAILY 0RF escitalopram oxalate 10 mg tablet 1 tab PO DAILY 0RF Discharge Orders: Discharge Order (Routine); Ordered 07/27/21 Ordered By: Amor Fuentes Diet: advance to usual diet Activity on Discharge: As tolerated Stand Alone Forms: Patient Portal Discharge page Care Plan Goals: Avoid alcohol. Take nadolol as prescribed. Health Concerns: No further alcohol Plan of Treatment: Continue current medicines and follow-up with PCP Assessment: As per discharge summary
--- NOTE | 2021-07-27 13:56 | MHC.CM.PN ---
Patient has been medically cleared for dc to home today, self care.
== END 2021-07-27 15:00 | disposition home or self-care (01) | DRG 280 ==
LOC: HO.ED 06:29 → HO.EDOVER 10:17 → HO.IMC 15:34
PROVIDERS: Internal Medicine Gastroenterology; Admitting Provider Hospitalist; Emergency Provider Student in an Organized Health Care Education/Training Program; PCP Internal Medicine; Visit Provider Hospitalist
PROC: 0DJ08ZZ Inspection of Upper Intestinal Tract, Via Natural or Artificial Opening Endoscopic (ICD-10-PCS; CPT 43235; principal; 2021-07-27 08:10)
DX: K70.30 Alcoholic cirrhosis of liver without ascites (principal); K76.6 Portal hypertension; I85.10 Secondary esophageal varices without bleeding; D62 Acute posthemorrhagic anemia; K92.0 Hematemesis; D69.59 Other secondary thrombocytopenia; K31.89 Other diseases of stomach and duodenum; Z86.711 Personal history of pulmonary embolism; Z20.822 Contact with and (suspected) exposure to COVID-19; Z79.899 Other long term (current) drug therapy
CPT/HCPCS: 43235; 36415; 70450; 71045; 74178; 80048; 80076; 82077; 82272; 82728; 83540; 83690; 83735; 84484; 85025; 85027; 85610; 86850; 86900; 86901; 86923; 87635; 93005; 96361; 96374; 99219; 99285; P9016; Q9967

== ENCOUNTER 2021-08-01 16:50 | Emergency (ER) | payer MEDICAID, SELFPAY ==
--- NOTE | ~2021-08-01 | CT_ITS ---
EXAMINATION: CT HEAD WITHOUT CONTRAST CLINICAL INFORMATION: Fall COMPARISON: Head CT 07/25/2021 TECHNIQUE: Contiguous axial imaging was performed from the skull base to vertex without intravenous administration of contrast. This CT examination was performed using dose optimization techniques as appropriate, variously including the following: *Automated exposure control *Adjustment of mA and/or kV according to patient size (this includes techniques or standardized protocols for targeted exams where dose is matched to indication/reason for exam; i.e. extremities or head) *Use of iterative reconstruction technique DLP: 746 mGy-cm FINDINGS: There is no evidence of acute intracranial hemorrhage or territorial infarction. No abnormal mass effect or midline shift is appreciated. Membreno-white differentiation is well preserved. No extra-axial fluid collections. The ventricular system and cortical sulci are prominent, consistent with age-appropriate volume loss. There are areas of low density in the periventricular and subcortical white matter, most consistent with sequelae of microvascular ischemic change. The osseous structures and soft tissues are normal. There are calcifications of the cavernous internal carotid arteries. Extensive paranasal sinus disease again noted. CT/CT head/brain wo con IMPRESSION: Chronic microvascular ischemic changes with no CT evidence of acute intracranial abnormality.
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
[2021-08-01 17:22] VITALS: BP 117/74; BP 142/80; PULSE 60; PULSE 86; RESP 20; TEMP 36.4; O2SAT 98; O2SAT 99; BMI 26.3
[2021-08-01 17:49] LABS: MANUAL DIFF FLAG NO
[2021-08-01 17:50] LABS: Basophils Percent Auto 0.7 % (0-2); Eosinophils Absolute Auto 0.2 X10*3/uL (0.0-0.4); Eosinophils Percent Auto 3.8 % (0-4); Hematocrit 29.3 % (42.0-52.0); Hemoglobin 9.5 g/dl (14.0-18.0); Imm Gran Abs Auto 0.01 X10*3/uL (0.00-0.03); Imm Gran Pct Auto 0.2 % (0.0-0.4); Lymphocytes Absolute Auto 1.7 X10*3/uL (1.2-4.9); Lymphocytes Percent Auto 29.9 % (20-40); Mean Corpuscular HGB Conc 32.4 g/dl (31.0-36.0); Mean Corpuscular Hemoglobin 36.1 pg (27.0-33.0); Mean Platelet Volume 8.7 fL (9.4-12.4); Monocytes Absolute Auto 0.8 X10*3/uL (0.1-1.2); Monocytes Percent Auto 14.4 % (2-11); Platelet Count 121 X10*3/uL (160-400); Red Blood Count 2.63 X10*6/uL (4.60-5.80); Red Cell Distribution Width 14.6 % (11.0-16.0); White Blood Count 5.8 X10*3/uL (4.8-10.8)
[2021-08-01 17:55] LABS: Appearance Urine CLEAR; Color Urine YELLOW; Glucose Urine UA NEG (NEG); Leukocyte Esterase Urine NEG (NEG); Nitrite Urine NEG (NEG); PH 5.5 (5.0-8.0); Specific Gravity - Urine <= 1.005 (1.005-1.025); Urine Blood NEG (NEG); Urine Ketones NEG (NEG); Urine Protein NEG (NEG-TRACE)
[2021-08-01 17:59] LABS: INTERNATIONAL NORM RATIO 1.3 (0.9-1.1); Prothrombin Time 14.8 SEC (9.9-13.0)
[2021-08-01 18:02] LABS: Ethanol 356 mg/dL
[2021-08-01 18:06] LABS: Alanine Aminotransferase 22 U/L (0-40); Albumin Level 3.2 g/dL (3.5-5.0); Alkaline Phosphatase 135 U/L (39-117); Anion Gap 13 (12-20); Aspartate Amino Transferase 57 U/L (5-37); Bilirubin Total 2.5 mg/dL (0.0-1.0); Blood Urea Nitrogen 7 mg/dL (9-16); Calcium 8.3 mg/dL (8.4-10.2); Carbon Dioxide 20 mmol/L (22-29); Chloride 113 mmol/L (96-108); Creatinine Clr Calc Pharmacy 105.2; Estimated Glomerular Filt Rate > 60; Glucose Random 99 mg/dL (60-115); Magnesium 1.9 mg/dL (1.6-2.6); Sodium 142 mmol/L (135-145); Total Protein 7.5 g/dL (6.5-8.0)
[2021-08-01 18:07] LABS: Amphetamine Screen Urine Not Detected (Not Detect); Barbiturates, Urine Not Detected (Not Detect); Benzodiazepines Screen Urine POSITIVE (Not Detect); Cannabinoid Screen Urine Not Detected (Not Detect); Cocaine Screen Urine Not Detected (Not Detect); Fentanyl, urine Not Detected (Not Detect); Opiate Screen Urine Not Detected (Not Detect); Phencyclidine Screen Urine Not Detected (Not Detect)
[2021-08-01 18:11] LABS: Mean Corpuscular Volume 111.4 fL (80.0-98.0)
[2021-08-01 18:12] LABS: Troponin-I High Sensitivity < 3.5 ng/L (<3.5-35.0)
[2021-08-01 19:10] LABS: COVID-19 Test Negative (Negative)
== END 2021-08-01 21:42 | disposition home or self-care (01) ==
PROVIDERS: Physician Assistant Medical; Emergency Provider Emergency Medicine; PCP Internal Medicine
DX: F10.120 Alcohol abuse with intoxication, uncomplicated (principal); Y90.8 Blood alcohol level of 240 mg/100 ml or more; K74.60 Unspecified cirrhosis of liver; K70.10 Alcoholic hepatitis without ascites
CPT/HCPCS: 36415; 70450; 80053; 80307; 81003; 82077; 83735; 84484; 85025; 85610; 85730; 87635; 99283; 99284

== ENCOUNTER 2021-08-07 12:28 | Emergency (ER) | payer MEDICAID, SELFPAY ==
[2021-08-07 15:04] VITALS: BP 144/75; PULSE 60; RESP 16; TEMP 36.5; O2SAT 97; BMI 26.7
[2021-08-07 15:35] LABS: MANUAL DIFF FLAG NO
[2021-08-07 15:36] LABS: Basophils Absolute Auto 0.1 X10*3/uL (0.0-0.2); Basophils Percent Auto 0.6 % (0-2); Eosinophils Absolute Auto 0.4 X10*3/uL (0.0-0.4); Eosinophils Percent Auto 4.8 % (0-4); Hematocrit 28.5 % (42.0-52.0); Hemoglobin 9.3 g/dl (14.0-18.0); Imm Gran Abs Auto 0.02 X10*3/uL (0.00-0.03); Imm Gran Pct Auto 0.3 % (0.0-0.4); Lymphocytes Absolute Auto 1.6 X10*3/uL (1.2-4.9); Lymphocytes Percent Auto 21.2 % (20-40); Mean Corpuscular HGB Conc 32.6 g/dl (31.0-36.0); Mean Corpuscular Hemoglobin 35.6 pg (27.0-33.0); Mean Corpuscular Volume 109.2 fL (80.0-98.0); Mean Platelet Volume 8.7 fL (9.4-12.4); Monocytes Absolute Auto 0.9 X10*3/uL (0.1-1.2); Monocytes Percent Auto 11.6 % (2-11); Neutrophils Absolute Auto 4.8 x10*3/uL (2.0-8.3); Neutrophils Percent Auto 61.5 % (45-73); Red Blood Count 2.61 X10*6/uL (4.60-5.80); White Blood Count 7.8 X10*3/uL (4.8-10.8)
[2021-08-07 15:37] LABS: Platelet Count 89 X10*3/uL (160-400)
[2021-08-07 15:38] LABS: Appearance Urine CLEAR; Color Urine YELLOW; Glucose Urine UA NEG (NEG); Leukocyte Esterase Urine NEG (NEG); Nitrite Urine NEG (NEG); Specific Gravity - Urine <= 1.005 (1.005-1.025); Urine Blood NEG (NEG); Urine Ketones NEG (NEG); Urine Protein NEG (NEG-TRACE)
[2021-08-07 15:41] LABS: INTERNATIONAL NORM RATIO 1.3 (0.9-1.1); Prothrombin Time 15.1 SEC (9.9-13.0)
[2021-08-07 15:44] LABS: Partial Thromboplastin Time 37.5 SEC (24.1-38.0)
[2021-08-07 15:52] LABS: Alanine Aminotransferase 21 U/L (0-40); Albumin Level 3.2 g/dL (3.5-5.0); Alkaline Phosphatase 164 U/L (39-117); Anion Gap 11 (12-20); Aspartate Amino Transferase 60 U/L (5-37); Bilirubin Total 3.5 mg/dL (0.0-1.0); Blood Urea Nitrogen 7 mg/dL (9-16); Calcium 8.4 mg/dL (8.4-10.2); Carbon Dioxide 21 mmol/L (22-29); Chloride 112 mmol/L (96-108); Creatinine Clr Calc Pharmacy 105.2; Estimated Glomerular Filt Rate > 60; Glucose Random 98 mg/dL (60-115); Potassium 3.8 mmol/L (3.3-5.1); Sodium 140 mmol/L (135-145); Total Protein 7.9 g/dL (6.5-8.0)
== END 2021-08-07 18:55 | disposition left against medical advice (07) ==
PROVIDERS: Emergency Provider Emergency Medicine; PCP Internal Medicine
DX: K92.2 Gastrointestinal hemorrhage, unspecified (principal)
CPT/HCPCS: 36415; 80048; 80076; 81003; 85025; 85610; 85730; 99283

== ENCOUNTER 2021-08-08 13:40 | Inpatient (IN) | payer MEDICAID, SELFPAY ==
--- NOTE | ~2021-08-08 | US_ITS ---
EXAMINATION: US ABDOMEN LIMITED CLINICAL INFORMATION: Ascites. COMPARISON: CT chest dated from 07/25/2021. TECHNIQUE: Real-time imaging of the abdomen to evaluate for ascites. US/US abdomen limited FINDINGS/IMPRESSION: Small volume of ascites in all the 4 abdominal quadrants.
--- NOTE | ~2021-08-08 | XR_ITS ---
EXAMINATION: XR RIBS, RIGHT CLINICAL INFORMATION: Rib pain. COMPARISON: Chest film dated 08/08/2021. TECHNIQUE: 3 views of the right ribs were obtained. FINDINGS: Once again density at left base which may well be fluid and/or atelectasis or infiltrate. There is some improvement at the right base. The mid-upper lung zones are grossly clear. There is no pneumothorax. The 3 detailed views of the right ribs do not demonstrate evidence for an acute fracture. Mildly bulbous appearance to the anterior 9th rib may represent a healed fracture. Small underlying lesion cannot be completely excluded. XR/XR ribs RT min 3V w CXR1V IMPRESSION: No pneumothorax. Improving right base compared to most recent previous study with some resolving atelectasis and likely fluid. Persistent left basilar probable effusion with adjacent atelectasis or infiltrate. There is no fracture on the rib films. As stated there is a bulbous appearance to the ninth and possibly the eighth rib anterior. This could represent an old fracture injury. Correlation recommended clinically. Small underlying lesion cannot be completely excluded.
--- NOTE | ~2021-08-08 | XR_ITS ---
EXAMINATION: XR CHEST CLINICAL INFORMATION: Chest pain COMPARISON: Previous chest x-ray most recent 07/25/2021 TECHNIQUE: 2 views of the chest were obtained. FINDINGS: The cardiac and mediastinal contours are normal. The lungs are clear. There are small bilateral pleural effusions. Bony structures are unremarkable. XR/XR chest 2V IMPRESSION: Small bilateral pleural effusions.
[2021-08-08 13:46] VITALS: BP 124/74; PULSE 66; RESP 19; TEMP 36.6; O2SAT 98; BMI 25.2
--- NOTE | 2021-08-08 13:51 | ECG_ITS ---
Test Reason : chest pain Blood Pressure : / mmHG Vent. Rate : 061 BPM Atrial Rate : 000 BPM P-R Int : 000 ms QRS Dur : 104 ms QT Int : 424 ms P-R-T Axes : 000 -08 051 degrees QTc Int : 426 ms Normal sinus rhythm Normal ECG Abnormal ECG When compared with ECG of 25-JUL-2021 00:28, No significant changes seen Referred By: Generic ED Physician Electronically Signed By:Cleveland Hunter
[2021-08-08 14:11] LABS: MANUAL DIFF FLAG NO
[2021-08-08 14:12] LABS: Basophils Absolute Auto 0.1 X10*3/uL (0.0-0.2); Basophils Percent Auto 0.7 % (0-2); Eosinophils Absolute Auto 0.4 X10*3/uL (0.0-0.4); Eosinophils Percent Auto 4.6 % (0-4); Hematocrit 30.5 % (42.0-52.0); Hemoglobin 9.7 g/dl (14.0-18.0); Imm Gran Abs Auto 0.04 X10*3/uL (0.00-0.03); Imm Gran Pct Auto 0.4 % (0.0-0.4); Lymphocytes Absolute Auto 2.2 X10*3/uL (1.2-4.9); Mean Corpuscular HGB Conc 31.8 g/dl (31.0-36.0); Mean Corpuscular Hemoglobin 35.1 pg (27.0-33.0); Mean Platelet Volume 8.8 fL (9.4-12.4); Monocytes Absolute Auto 1.2 X10*3/uL (0.1-1.2); Monocytes Percent Auto 12.5 % (2-11); Neutrophils Absolute Auto 5.6 x10*3/uL (2.0-8.3); Neutrophils Percent Auto 58.8 % (45-73); Red Blood Count 2.76 X10*6/uL (4.60-5.80); White Blood Count 9.5 X10*3/uL (4.8-10.8)
[2021-08-08 14:13] LABS: Mean Corpuscular Volume 110.5 fL (80.0-98.0); Platelet Count 98 X10*3/uL (160-400)
[2021-08-08 14:20] LABS: INTERNATIONAL NORM RATIO 1.4 (0.9-1.1); Prothrombin Time 15.7 SEC (9.9-13.0)
[2021-08-08 14:33] LABS: Alanine Aminotransferase 18 U/L (0-40); Albumin Level 3.2 g/dL (3.5-5.0); Alkaline Phosphatase 169 U/L (39-117); Anion Gap 13 (12-20); Aspartate Amino Transferase 62 U/L (5-37); Bilirubin Direct 2.1 mg/dL (0.0-0.5); Bilirubin Total 3.7 mg/dL (0.0-1.0); Blood Urea Nitrogen 8 mg/dL (9-16); Calcium 8.1 mg/dL (8.4-10.2); Carbon Dioxide 19 mmol/L (22-29); Chloride 111 mmol/L (96-108); Creatinine Clr Calc Pharmacy 106.4; Estimated Glomerular Filt Rate > 60; Glucose Random 106 mg/dL (60-115); Potassium 3.9 mmol/L (3.3-5.1); Sodium 139 mmol/L (135-145); Total Protein 7.8 g/dL (6.5-8.0)
[2021-08-08 14:40] LABS: B Type Natriuretic Peptide 163 pg/mL (<100); Troponin-I High Sensitivity 4.4 ng/L (<3.5-35.0)
[2021-08-08 17:13] VITALS: BP 130/77; PULSE 53; RESP 16; TEMP 36.3; O2SAT 96
[2021-08-08 17:54] LABS: OBS Int Ctl Valid YES; OBS1 POSITIVE (NEGATIVE)
[2021-08-08 17:56] LABS: Appearance Urine CLEAR; Color Urine YELLOW; Glucose Urine UA NEG (NEG); Leukocyte Esterase Urine NEG (NEG); Nitrite Urine NEG (NEG); PH 6.5 (5.0-8.0); Specific Gravity - Urine <= 1.005 (1.005-1.025); UACC Culture Trigger NO; Urine Blood TRACE (NEG); Urine Ketones NEG (NEG); Urine Protein NEG (NEG-TRACE)
--- NOTE | 2021-08-08 18:11 | ED.GENADULT ---
HPI - General Adult General Chief complaint: General Medical Stated complaint: Chest pain/rectal bleed Time Seen by Provider: 08/08/21 17:33 Source: patient Mode of arrival: ambulatory Limitations: no limitations History of Present Illness HPI narrative: 56-year-old male came in for evaluation of chest pain/abdominal pain and blood in the urine and stool. Patient with significant history of alcoholic liver cirrhosis disease due to alcohol abuse also been having portal hypertension gastropathy with esophageal varices, patient came in for coughing up blood for the past month every day, also for the past 2 days noticed to have a bright red blood from rectum and in the urine, patient had a recent hospitalization for similar symptoms and was discharged last week after the bleeding stopped. Patient came to the emergency department yesterday because he started to notice bright red blood in the urine and stool patient waited for 6 hours but left without being seen, returned today for persistence of bright red blood in the rectum and in the urine, patient also been having epigastric/chest pain started early this morning about 8 hours ago pain is gone now, describes the pain as pressure on the chest moderate in severity 5/10, with no radiation, no aggravating factor, no relieving factor. Related Data Home Medications Medication Instructions Recorded Confirmed albuterol sulfate 90 mcg/actuation 2 puff INHALATION Q4-6H PRN 05/26/20 08/01/21 aerosol inhaler pantoprazole 40 mg tablet,delayed 40 mg PO DAILY 05/26/20 08/01/21 release atorvastatin 10 mg tablet 1 tab PO DAILY 07/25/21 08/01/21 cyanocobalamin (vitamin B-12) 1,000 mcg PO DAILY 07/25/21 08/01/21 1,000 mcg tablet escitalopram oxalate 10 mg tablet 1 tab PO DAILY 07/25/21 08/01/21 magnesium oxide 400 mg (241.3 mg 1 tab PO DAILY 07/25/21 08/01/21 magnesium) tablet meclizine 25 mg tablet 1 tab PO TID PRN 07/25/21 08/01/21 multivitamin 1 tab PO DAILY 07/25/21 08/01/21 pyridoxine (vitamin B6) 100 mg 100 mg PO DAILY 07/25/21 08/01/21 tablet thiamine HCl (vitamin B1) 100 mg 100 mg PO DAILY 07/25/21 08/01/21 tablet Previous Rx's Medication Instructions Recorded furosemide 40 mg tablet 40 mg PO DAILY #30 tab 04/13/20 nadolol 20 mg tablet 20 mg PO DAILY #30 tab 07/27/21 Allergies Allergy/AdvReac Type Severity Reaction Status Date / Time No Known Allergies Allergy Verified 07/25/21 00:18 [No Known Allergies*] Review of Systems Review of Systems: All other systems are reviewed and are negative Constitutional: Reports as per HPI and Reports no additional constitutional complaints Eyes: Reports as per HPI and Reports no additional eye complaints Reports system reviewed and no additional complaints, except as documented Cardiovascular: Reports as per HPI and Reports no additional cardiovascular complaints Respiratory: Reports as per HPI and Reports no additional respiratory complaints Gastrointestinal: Reports as per HPI and Reports no additional gastrointestinal complaints Genitourinary: Reports no additional female genitourinary complaints Musculoskeletal: Reports no additional musculoskeletal complaints Skin/Breast: Reports system reviewed and no additional complaints, except as docu Psychiatric: Reports no additional psychiatric complaints Endocrine: Reports no additional endocrine complaints Hematologic/Lymphatic: Reports no additional hematologic/lymphatic complaints Allergic/Immunologic: Reports no additional allergic/immunologic complaints Reports system reviewed and no additional complaints, except as documented and Reports Abnormal speech present [facility] Past Medical History Medical History Asthma Cirrhosis of liver Hx of fall Hx pulmonary embolism Status post abdominal paracentesis Surgical History Hx of colonoscopy Hx of esophagogastroduodenoscopy Hx of right inguinal hernia repair Social History Social History Household Members: Family Household Members Other:: mother Housing: House Do you presently have visiting nurse or other home services: No Alcohol intake: former Year quit: 2019 Patient Tobacco Use Status: Never used Tobacco e-Cigarette/Vaping Use: Never Used Second Hand Smoke Exposure: No Substance Use Type: Marijuana Advance Directives: No Advance Directives Information Provided: Yes service: No Current occupational status: employed Physical Exam ED Vital Signs: Vital Signs - 24 hr 08/08/21 13:46 08/08/21 17:13 Temperature 98 F 97.3 F Pulse Rate 66 53 Respiratory Rate 19 16 Blood Pressure 124/74 130/77 Pulse Oximetry 98 96 BMI result Body Mass Index 25.2 Vital signs have been reviewed as appeared to be correct. Blood pressure normal. Heart rate normal. Respiration rate normal. Temperature normal. Oxygen saturation normal. Appearance: Alert. Oriented X3. No acute distress. Head: Normal external exam. Normocephalic. Atraumatic. No Smith signs noted. No raccoon eyes noted Eyes: PERRLA. EOMI. Conjunctiva and sclera normal. Eyelids normal. ENT: TM's Normal. Pharynx normal. Uvula midline. Moist mucous membranes. No trismus noted. No drooling noted. No muffled voice noted. Neck: Normal inspection. Neck supple. FROM. No adenopathy. Thyroid Normal. No meningeal signs. No neck mass noted. CVS: Normal heart rate and rhythm. Heart sound normal. No murmurs noted. Pulses normal throughout. Respiratory: No respiratory distress. Painless inspiration. Breath sounds normal. No wheezes/rales/rhonchi noted. Chest nontender. No accessory muscle usage noted or decreased air movement noted. Abdomen: Soft and nontender. Bowel sounds normal in all 4 quadrants. No distention noted. No organomegaly noted. No visible injury noted. Rectal examination: Brown stool was small blood clots of bright red blood. Small nonbleeding external hemorrhoids. Back: No CVA tenderness. Full range of motion noted. Skin: Skin warm and dry. Normal skin color. Normal skin turgor. No rashes/lesions/lacerations noted. Extremities: No lower extremity edema. Extremities exhibit normal range of motion. Extremities nontender. Neuro: Oriented X 3. Cranial nerve exam: II-XII are grossly intact No motor deficit. No sensory deficit. Reflexes normal. Course Course Course Narrative: Assessment and plan. 56-year-old male with alcoholic liver cirrhosis and likely hepatic coagulopathy, came in with GI bleed/ bleed, patient hemodynamically stable with no severe anemia no change in H&H. Chest pain not likely to be cardiac in origin. Will admit for observation for serial CBC Medical Decision Making Medical Records Medical records reviewed: Yes I reviewed the patient's medical records. Lab Data Lab results reviewed: Yes I reviewed the patient's lab results. Result diagrams: 08/08/21 14:06 08/08/21 14:06 Labs: Lab Results 03/22/22 03/22/22 03/22/22 Range/Units 14:06 14:06 14:06 WBC 9.5 (4.8-10.8) X10*3/uL RBC 2.76 L (4.60-5.80) X10*6/uL Hgb 9.7 L (14.0-18.0) g/dl Hct 30.5 L (42.0-52.0) % MCV 110.5 H (80.0-98.0) fL MCH 35.1 H (27.0-33.0) pg MCHC 31.8 (31.0-36.0) g/dl RDW 15.0 (11.0-16.0) % Plt Count 98 L (160-400) X10*3/uL MPV 8.8 L (9.4-12.4) fL Immature Gran % (Auto) 0.4 (0.0-0.4) % Neut % (Auto) 58.8 (45-73) % Lymph % (Auto) 23.0 (20-40) % [place] % (Auto) 12.5 H (2-11) % Eos % (Auto) 4.6 H (0-4) % Baso % (Auto) 0.7 (0-2) % Lymph # (Auto) 2.2 (1.2-4.9) X10*3/uL [place] # (Auto) 1.2 (0.1-1.2) X10*3/uL Eos # (Auto) 0.4 (0.0-0.4) X10*3/uL Baso # (Auto) 0.1 (0.0-0.2) X10*3/uL Abs Immat Gran (auto) 0.04 H (0.00-0.03) X10*3/uL Absolute Neuts (auto) 5.6 (2.0-8.3) x10*3/uL Absolute Nucleated RBC 0.000 (0.0-0.012) X10*3/uL Nucleated RBC % (auto) 0.0 (0.0-0.2) /100WBC PT (9.9-13.0) SEC INR (0.9-1.1) Sodium 139 (135-145) mmol/L Potassium 3.9 (3.3-5.1) mmol/L Chloride 111 H (96-108) mmol/L Carbon Dioxide 19 L (22-29) mmol/L Anion Gap 13 (12-20) BUN 8 L (9-16) mg/dL Creatinine 0.84 (0.5-1.4) mg/dL Estim Creat Clear Calc 106.4 Estimated GFR > 60 Random Glucose 106 (60-115) mg/dL Calcium 8.1 L (8.4-10.2) mg/dL Total Bilirubin 3.7 H (0.0-1.0) mg/dL Direct Bilirubin 2.1 H (0.0-0.5) mg/dL AST 62 H (5-37) U/L ALT 18 (0-40) U/L Alkaline Phosphatase 169 H (39-117) U/L Troponin I High Sens 4.4 (<3.5-35.0) ng/L B-Natriuretic Peptide 163 H (<100) pg/mL Total Protein 7.8 (6.5-8.0) g/dL Albumin 3.2 L (3.5-5.0) g/dL Urine Color Urine Appearance Urine pH (5.0-8.0) Ur Specific [place] (1.005-1.025) Urine Protein (NEG-TRACE) MG/DL Urine Glucose (UA) (NEG) MG/DL Urine Ketones (NEG) MG/DL Urine Blood (NEG) Urine Nitrite (NEG) Ur Leukocyte Esterase (NEG) Urine RBC (0) /HPF Urine WBC (0-4) /HPF Ur Squamous Epith Cells /LPF Urine Bacteria /LPF Stool Occult Blood (NEGATIVE) 08/08/21 08/08/21 08/08/21 Range/Units 14:06 17:39 17:40 WBC (4.8-10.8) X10*3/uL RBC (4.60-5.80) X10*6/uL Hgb (14.0-18.0) g/dl Hct (42.0-52.0) % MCV (80.0-98.0) fL MCH (27.0-33.0) pg MCHC (31.0-36.0) g/dl RDW (11.0-16.0) % Plt Count (160-400) X10*3/uL MPV (9.4-12.4) fL Immature Gran % (Auto) (0.0-0.4) % Neut % (Auto) (45-73) % Lymph % (Auto) (20-40) % [place] % (Auto) (2-11) % Eos % (Auto) (0-4) % Baso % (Auto) (0-2) % Lymph # (Auto) (1.2-4.9) X10*3/uL [place] # (Auto) (0.1-1.2) X10*3/uL Eos # (Auto) (0.0-0.4) X10*3/uL Baso # (Auto) (0.0-0.2) X10*3/uL Abs Immat Gran (auto) (0.00-0.03) X10*3/uL Absolute Neuts (auto) (2.0-8.3) x10*3/uL Absolute Nucleated RBC (0.0-0.012) X10*3/uL Nucleated RBC % (auto) (0.0-0.2) /100WBC PT 15.7 H (9.9-13.0) SEC INR 1.4 H (0.9-1.1) Sodium (135-145) mmol/L Potassium (3.3-5.1) mmol/L Chloride (96-108) mmol/L Carbon Dioxide (22-29) mmol/L Anion Gap (12-20) BUN (9-16) mg/dL Creatinine (0.5-1.4) mg/dL Estim Creat Clear Calc Estimated GFR Random Glucose (60-115) mg/dL Calcium (8.4-10.2) mg/dL Total Bilirubin (0.0-1.0) mg/dL Direct Bilirubin (0.0-0.5) mg/dL AST (5-37) U/L ALT (0-40) U/L Alkaline Phosphatase (39-117) U/L Troponin I High Sens (<3.5-35.0) ng/L B-Natriuretic Peptide (<100) pg/mL Total Protein (6.5-8.0) g/dL Albumin (3.5-5.0) g/dL Urine Color YELLOW Urine Appearance CLEAR Urine pH 6.5 (5.0-8.0) Ur Specific [place] <= 1.005 (1.005-1.025) Urine Protein NEG (NEG-TRACE) MG/DL Urine Glucose (UA) NEG (NEG) MG/DL Urine Ketones NEG (NEG) MG/DL Urine Blood TRACE (NEG) Urine Nitrite NEG (NEG) Ur Leukocyte Esterase NEG (NEG) Urine RBC 1-4 (0) /HPF Urine WBC 0 (0-4) /HPF Ur Squamous Epith Cells NONE /LPF Urine Bacteria NONE /LPF Stool Occult Blood POSITIVE (NEGATIVE) Imaging Data Chest x-ray: Attestation: I personally reviewed and interpreted this imaging study as follows: Radiologist's impression: Small bilateral pleural effusion. ECG Data Attestation: I personally reviewed and interpreted this ECG as follows: Interpretation: Normal sinus rhythm at 61 beats per minute, multiple artifact, left axis deviation, normal intervals. No ST-T changes. Discharge Plan Discharge Clinical Impression: Cirrhosis of liver, GI bleed, Chest pain Patient Disposition: Admitted As Inpatient Prescriptions: No Action furosemide 40 mg Tablet 40 mg PO DAILY Qty: 30 0RF Protocol: Hold for SBP< HOLD for SBP < : 90 pantoprazole 40 mg Tablet,Delayed Release (Dr/Ec) 40 mg PO DAILY 0RF albuterol sulfate 90 mcg/actuation Hfa Aerosol Inhaler 2 puff INHALATION Q4-6H PRN (Reason: Shortness Of Breath) 0RF multivitamin Tablet 1 tab PO DAILY 0RF atorvastatin 10 mg tablet 1 tab PO DAILY 0RF cyanocobalamin (vitamin B-12) 1,000 mcg Tablet 1,000 mcg PO DAILY 0RF thiamine HCl (vitamin B1) 100 mg Tablet 100 mg PO DAILY 0RF magnesium oxide 400 mg (241.3 mg magnesium) tablet 1 tab PO DAILY 0RF meclizine 25 mg tablet 1 tab PO TID PRN (Reason: dizziness) 0RF pyridoxine (vitamin B6) 100 mg Tablet 100 mg PO DAILY 0RF escitalopram oxalate 10 mg tablet 1 tab PO DAILY 0RF nadolol 20 mg Tablet 20 mg PO DAILY Qty: 30 0RF Protocol: Hold for SBP/HR < HOLD for SBP < : 90 HOLD for HR < : 60
[2021-08-08 18:15] LABS: WBC Urine 0 /HPF (0-4)
[2021-08-08] MEDS: Pantoprazole Sodium 40 MG/10 ML VIAL IVPUSH (18:37)
--- NOTE | 2021-08-08 18:40 | PHA.MEDREC ---
Pharmacy Consult ? Medication Reconciliation Pharmacy has completed the medication reconciliation.
[2021-08-08] MEDS: 0.9 % Sodium Chloride 1,000 ML 100 ML IVCONT (18:43)
--- NOTE | 2021-08-08 18:49 | P.HPHOSP_ITS ---
History of Present Illness Date of Service: 08/08/21 Chief Complaint: Bright red blood per rectum 56-year-old male with known history of alcoholic cirrhosis and grade 2 esophageal varices ( non bleeding as of EGD 07/27/2021 ) Presents with bright red blood from his rectum along with vomiting blood. He was recently discharged 07/27/2021 for similar complaints. despite warnings, he continues to drink and states over this past weekend he drink rather heavily. The vomiting and the blood from his bottom started yesterday however he did not wait in the ER secondary to prolonged wait times. He presents today with the above complaints. Hemoglobin thus far stable. ER physician states bright red blood during rectal exam. He will be admitted for GI consult and further workup and treatment Review of Systems Review of Systems: denies chest pain Denies shortness of breath Denies nausea/ diarrhea Denies abdominal pain Admits bright red blood from rectum and vomiting blood PMFSH Medical History Asthma Cirrhosis of liver Hx of fall Hx pulmonary embolism Status post abdominal paracentesis Surgical History Hx of colonoscopy Hx of esophagogastroduodenoscopy Hx of right inguinal hernia repair Social History Household Members: Family Household Members Other:: mother Housing: House Do you presently have visiting nurse or other home services: No Alcohol intake: former Year quit: 2019 Patient Tobacco Use Status: Never used Tobacco e-Cigarette/Vaping Use: Never Used Second Hand Smoke Exposure: No Substance Use Type: Marijuana Advance Directives: No Advance Directives Information Provided: Yes service: No Current occupational status: employed Meds Allergies Allergy/AdvReac Type Severity Reaction Status Date / Time No Known Allergies Allergy Verified 07/25/21 00:18 [No Known Allergies*] Active Medications: Current Medications Sodium Chloride (Ns) 1,000 mls @ 100 mls/hr IVCONT .Q10H EVONNE Last Admin: 08/08/21 18:43 Dose: 100 mls/hr Documented by: Nadolol (Nadolol 20 Mg Tablet) 20 mg PO DAILY EVONNE; Protocol Ondansetron HCl (Ondansetron Hcl 4 Mg/2 Ml Vial) 4 mg IVPUSH Q8H PRN PRN Reason: Nausea and Vomiting Pantoprazole Sodium (Pantoprazole Sodium 40 Mg/10 Ml Vial) 40 mg IVPUSH BID@0830,1630 [facility] Last Admin: 08/08/21 18:37 Dose: 40 mg Documented by: Sodium Chloride (0.9 % Sodium Chloride Flush 3 Ml Syringe) 3 ml IVFLUSH QSHIFT [facility] Home Medications Medication Instructions Recorded Confirmed Last Taken Type albuterol sulfate 90 mcg/actuation 2 puff INHALATION Q4-6H PRN 05/26/20 08/08/21 Unknown History aerosol inhaler pantoprazole 40 mg tablet,delayed 40 mg PO DAILY 05/26/20 08/08/21 08/04/21 History release atorvastatin 10 mg tablet 1 tab PO DAILY 07/25/21 08/08/21 08/04/21 History cyanocobalamin (vitamin B-12) 1,000 mcg PO DAILY 07/25/21 08/08/21 08/04/21 Hi story 1,000 mcg tablet escitalopram oxalate 10 mg tablet 1 tab PO DAILY 07/25/21 08/08/21 08/04/21 History magnesium oxide 400 mg (241.3 mg 1 tab PO DAILY 07/25/21 08/08/21 08/04/21 History magnesium) tablet meclizine 25 mg tablet 1 tab PO TID PRN 07/25/21 08/08/21 Unknown History multivitamin 1 tab PO DAILY 07/25/21 08/08/21 08/04/21 History pyridoxine (vitamin B6) 100 mg 100 mg PO DAILY 07/25/21 08/08/21 08/04/21 History tablet thiamine HCl (vitamin B1) 100 mg 100 mg PO DAILY 07/25/21 08/08/21 08/04/21 History tablet lactulose 10 gram/15 mL oral 30 ml PO TID 08/08/21 08/08/21 08/04/21 History solution Physical Exam Vital Signs and Narrative: Vital Signs: Last Vital Signs Temp 97.3 F 08/08/21 17:13 Pulse 53 08/08/21 17:13 Resp 16 08/08/21 17:13 BP 130/77 08/08/21 17:13 Pulse Ox 96 08/08/21 17:13 BMI result Body Mass Index 25.2 Const: Other: awake alert oriented x3 no acute distress Resp: Other: clear to auscultation bilaterally. No rales rhonchi or wheezes Cardio: Other: no S4; positive S1-S2; no S3 murmurs rubs or gallops GI: Other: soft nontender nondistended normoactive bowel sounds x4 quadrants. No peritoneal signs noted. palpable fluid wave Extrem: Other: no edema bilaterally Results Labs CBC and Chem 7: 08/08/21 14:06 08/08/21 14:06 Labs: Laboratory Results - last 24 hr 08/08/21 08/08/21 08/08/21 14:06 14:06 14:06 MCV 110.5 H MCH 35.1 H MCHC 31.8 RDW 15.0 Plt Count 98 L MPV 8.8 L Immature Gran % (Auto) 0.4 Neut % (Auto) 58.8 Lymph % (Auto) 23.0 [place] % (Auto) 12.5 H Eos % (Auto) 4.6 H Baso % (Auto) 0.7 Lymph # (Auto) 2.2 [place] # (Auto) 1.2 Eos # (Auto) 0.4 Baso # (Auto) 0.1 Abs Immat Gran (auto) 0.04 H Absolute Neuts (auto) 5.6 Absolute Nucleated RBC 0.000 Nucleated RBC % (auto) 0.0 PT INR Anion Gap 13 Estim Creat Clear Calc 106.4 Estimated GFR > 60 Random Glucose 106 Calcium 8.1 L Total Bilirubin 3.7 H Direct Bilirubin 2.1 H AST 62 H ALT 18 Alkaline Phosphatase 169 H B-Natriuretic Peptide 163 H Total Protein 7.8 Albumin 3.2 L Urine Color Urine Appearance Urine pH Ur Specific [place] Urine Protein Urine Glucose (UA) Urine Ketones Urine Blood Urine Nitrite Ur Leukocyte Esterase Urine RBC Urine WBC Ur Squamous Epith Cells Urine Bacteria Stool Occult Blood 08/08/21 08/08/21 08/08/21 14:06 17:39 17:40 MCV MCH MCHC RDW Plt Count MPV Immature Gran % (Auto) Neut % (Auto) Lymph % (Auto) [place] % (Auto) Eos % (Auto) Baso % (Auto) Lymph # (Auto) [place] # (Auto) Eos # (Auto) Baso # (Auto) Abs Immat Gran (auto) Absolute Neuts (auto) Absolute Nucleated RBC Nucleated RBC % (auto) PT 15.7 H INR 1.4 H Anion Gap Estim Creat Clear Calc Estimated GFR Random Glucose Calcium Total Bilirubin Direct Bilirubin AST ALT Alkaline Phosphatase B-Natriuretic Peptide Total Protein Albumin Urine Color YELLOW Urine Appearance CLEAR Urine pH 6.5 Ur Specific [place] <= 1.005 Urine Protein NEG Urine Glucose (UA) NEG Urine Ketones NEG Urine Blood TRACE Urine Nitrite NEG Ur Leukocyte Esterase NEG Urine RBC 1-4 Urine WBC 0 Ur Squamous Epith Cells NONE Urine Bacteria NONE Stool Occult Blood POSITIVE Imaging Radiologist's Impressions: Impressions Chest X-Ray 08/08/21 14:15 IMPRESSION: Small bilateral pleural effusions. Assessment and Plan (1) GI bleed: Status: Acute (2) Alcohol abuse: Status: Acute (3) Cirrhosis of liver: Status: Acute Plan 56-year-old male with known alcoholic cirrhosis in grade 2 varices presents vomiting blood with blood right blood per rectum. Continues to consume alcohol despite warnings. Hemoglobin thus far stable 1. LGIB -NPO -serial H/H..IVFs -IV PPI -GI consult in am 2. EToH cirrhosis -ABD US in am to clarify ascities -continue Nadolol as per GI recommendations -Follow LFTs/Coags 3. EToH abuse -observe on CIWA Care team consult Full Code Boots will require 2 midnights for stabilization of GI bleed and possible endoscopy by GI. May require transfusions Quality Stroke Does the patient have a stroke diagnosis?: No VTE Prior VTE?: No VTE Risk Level:: Medical - moderate - high VTE Device Contraindication: N/A - Device Ordered VTE Drug Contraindication: Treatment Not Indicated
[2021-08-08 19:05] VITALS: PULSE 65; RESP 20; O2SAT 94
[2021-08-08] MEDS: nadoloL 20 MG TABLET PO (19:09)
[2021-08-08 20:16] LABS: MANUAL DIFF FLAG NO
[2021-08-08 20:21] LABS: Basophils Absolute Auto 0.1 X10*3/uL (0.0-0.2); Basophils Percent Auto 0.9 % (0-2); Eosinophils Absolute Auto 0.4 X10*3/uL (0.0-0.4); Eosinophils Percent Auto 5.7 % (0-4); Hematocrit 28.9 % (42.0-52.0); Hemoglobin 9.3 g/dl (14.0-18.0); Imm Gran Abs Auto 0.02 X10*3/uL (0.00-0.03); Imm Gran Pct Auto 0.3 % (0.0-0.4); Lymphocytes Absolute Auto 1.6 X10*3/uL (1.2-4.9); Lymphocytes Percent Auto 23.9 % (20-40); Mean Corpuscular HGB Conc 32.2 g/dl (31.0-36.0); Mean Corpuscular Hemoglobin 35.6 pg (27.0-33.0); Mean Platelet Volume 9.2 fL (9.4-12.4); Monocytes Absolute Auto 0.8 X10*3/uL (0.1-1.2); Neutrophils Absolute Auto 3.9 x10*3/uL (2.0-8.3); Neutrophils Percent Auto 57.2 % (45-73); Red Blood Count 2.61 X10*6/uL (4.60-5.80); White Blood Count 6.9 X10*3/uL (4.8-10.8)
[2021-08-08 20:23] LABS: Mean Corpuscular Volume 110.7 fL (80.0-98.0); Platelet Count 82 X10*3/uL (160-400)
[2021-08-08] MEDS: Lactulose 20 GM/30 ML SOLUTION PO (20:55)
--- NOTE | 2021-08-08 22:19 | MHC.CM.PN ---
CM met with admitted patient with bed assignment pending. A&Ox3. NO IMM necessary. HCP on file. HCP Sharri Snell ([phone]).PCP is Dr. Fernando Martin.Recently admitted to [facility] 07/25-07/27/21 with bleeding. Seen in ED on 08/01, 08/07 and 08/08. HX ETOH misuse. Lives with mother. Has no services and uses no DME. Fully vaccinated/boosted with Pfizer.CM encouraged recovery support services. Pt states he saw them in the hospital last time, received paperwork, but did not look at it. Encouraged pt to consider help. D/C plan is home without services. Pt to arrange transportation. M to follow for d/c needs.
[2021-08-08 23:07] VITALS: BP 109/61; PULSE 55; RESP 18; TEMP 36.7; O2SAT 94
[2021-08-08 23:11] LABS: COVID-19 Test Negative (Negative); IDNOW Serial# 55D5AD1C
[2021-08-09] VITALS (9 sets, daily range): BP systolic 106–164; BP diastolic 44–77; PULSE 57–78; RESP 17–21; TEMP 36.7–37.9; O2SAT 92–97; BMI 25.2
[2021-08-09] MEDS: 0.9 % Sodium Chloride Flush 3 ML SYRINGE IVFLUSH ×3 (00:23→15:16)
[2021-08-09] MEDS: 0.9 % Sodium Chloride 1,000 ML 100 ML IVCONT ×3 (04:45→23:47)
[2021-08-09 08:09] LABS: MANUAL DIFF FLAG NO
[2021-08-09 08:11] LABS: Basophils Percent Auto 0.6 % (0-2); Eosinophils Absolute Auto 0.3 X10*3/uL (0.0-0.4); Eosinophils Percent Auto 4.8 % (0-4); Hematocrit 27.4 % (42.0-52.0); Hemoglobin 8.9 g/dl (14.0-18.0); Imm Gran Abs Auto 0.01 X10*3/uL (0.00-0.03); Imm Gran Pct Auto 0.2 % (0.0-0.4); Lymphocytes Absolute Auto 1.1 X10*3/uL (1.2-4.9); Lymphocytes Percent Auto 21.5 % (20-40); Mean Corpuscular HGB Conc 32.5 g/dl (31.0-36.0); Mean Corpuscular Hemoglobin 35.9 pg (27.0-33.0); Mean Platelet Volume 8.8 fL (9.4-12.4); Monocytes Absolute Auto 0.8 X10*3/uL (0.1-1.2); Monocytes Percent Auto 15.1 % (2-11); Neutrophils Percent Auto 57.8 % (45-73); Red Blood Count 2.48 X10*6/uL (4.60-5.80); White Blood Count 5.2 X10*3/uL (4.8-10.8)
[2021-08-09 08:13] LABS: Mean Corpuscular Volume 110.5 fL (80.0-98.0); Platelet Count 65 X10*3/uL (160-400)
[2021-08-09] MEDS: Pantoprazole Sodium 40 MG/10 ML VIAL IVPUSH ×2 (08:25→16:31)
[2021-08-09] MEDS: Magnesium Oxide 400 MG TABLET PO (08:25)
[2021-08-09] MEDS: Cyanocobalamin (Vitamin B-12) 1,000 MCG TABLET 1000 MCG PO (08:25)
[2021-08-09] MEDS: Thiamine HCL 100 MG TABLET PO (08:25)
[2021-08-09] MEDS: Lactulose 20 GM/30 ML SOLUTION PO ×2 (08:25→15:16)
[2021-08-09] MEDS: Escitalopram Oxalate 10 MG TABLET PO (08:25)
[2021-08-09] MEDS: Multivitamin TABLET 1 TAB PO (08:25)
[2021-08-09] MEDS: Atorvastatin Calcium 10 MG TABLET PO (08:25)
[2021-08-09] MEDS: Furosemide 40 MG TABLET PO (08:25)
[2021-08-09 08:31] LABS: Alanine Aminotransferase 17 U/L (0-40); Albumin Level 2.7 g/dL (3.5-5.0); Alkaline Phosphatase 141 U/L (39-117); Anion Gap 13 (12-20); Aspartate Amino Transferase 53 U/L (5-37); Bilirubin Total 3.7 mg/dL (0.0-1.0); Blood Urea Nitrogen 8 mg/dL (9-16); Calcium 7.9 mg/dL (8.4-10.2); Carbon Dioxide 17 mmol/L (22-29); Chloride 115 mmol/L (96-108); Creatinine Clr Calc Pharmacy 117.7; Estimated Glomerular Filt Rate > 60; Glucose Fasting 81 mg/dL (60-99); Potassium 3.8 mmol/L (3.3-5.1); Sodium 141 mmol/L (135-145); Total Protein 6.7 g/dL (6.5-8.0)
[2021-08-09] MEDS: nadoloL 20 MG TABLET PO (09:46)
[2021-08-09] MEDS: Pyridoxine HCl (Vitamin B6) 50 MG TABLET 100 MG PO (09:47)
--- NOTE | 2021-08-09 10:04 | PC.NURSE ---
alert, c/o stomach upset w diarrhea,pt reports no blood,dr bay informed, steady gait to bathroom, otherwise nad, skin wpd
[2021-08-09] MEDS: Loperamide HCl 2 MG CAPSULE PO (14:09)
--- NOTE | 2021-08-09 16:00 | HO.PM.IMPN ---
Subjective Subjective Date of Service: 08/09/21 Interval History: No further bleeding overnight. Positive stools without blood. Complains of right rib pain secondary to fall Review of Systems denies chest pain Denies shortness of breath Denies nausea/ diarrhea Denies abdominal pain Admits bright red blood from rectum and vomiting blood Physical Exam Vital Signs: Vital Signs: Last Vital Signs Temp 98.3 F 08/09/21 14:37 Pulse 65 08/09/21 14:37 Resp 18 08/09/21 14:37 BP 136/68 08/09/21 14:37 Pulse Ox 95 08/09/21 14:37 BMI result Body Mass Index 25.2 Const: Other: awake alert oriented x3 no acute distress Resp: Other: clear to auscultation bilaterally. No rales rhonchi or wheezes Cardio: Other: no S4; positive S1-S2; no S3 murmurs rubs or gallops GI: Other: soft nontender nondistended normoactive bowel sounds x4 quadrants. No peritoneal signs noted. palpable fluid wave Extrem: Other: no edema bilaterally Objective Data Active Medications Albuterol Sulfate (Albuterol Sulfate 90 Mcg 8 Gm Inhaler) 2 puff INHALE Q4H PRN PRN Reason: Shortness Of Breath Atorvastatin Calcium (Atorvastatin Calcium 10 Mg Tablet) 10 mg PO DAILY [facility] Last Admin: 08/09/21 08:25 Dose: 10 mg Documented by: AGNIESZKA Cyanocobalamin (Cyanocobalamin (Vitamin B-12) 1,000 Mcg Tablet) 1,000 mcg PO DAILY [facility] Last Admin: 08/09/21 08:25 Dose: 1,000 mcg Documented by: AGNIESZKA Escitalopram Oxalate (Escitalopram Oxalate 10 Mg Tablet) 10 mg PO DAILY [facility] Last Admin: 08/09/21 08:25 Dose: 10 mg Documented by: AGNIESZKA Furosemide (Furosemide 40 Mg Tablet) 40 mg PO DAILY [facility]; Protocol Last Admin: 08/09/21 08:25 Dose: 40 mg Documented by: AGNIESZKA Sodium Chloride (Ns) 1,000 mls @ 100 mls/hr IVCONT .Q10H [facility] Last Admin: 08/09/21 15:12 Dose: 100 mls/hr Documented by: BG Lactulose (Lactulose 20 Gm/30 Ml Solution) 20 gm PO TID [facility] Last Admin: 08/09/21 15:16 Dose: 20 gm Documented by: BG Loperamide HCl (Loperamide Hcl 2 Mg Capsule) 2 mg PO Q6H PRN PRN Reason: Diarrhea Last Admin: 08/09/21 14:09 Dose: 2 mg Documented by: AGNIESZKA Magnesium Oxide (Magnesium Oxide 400 Mg Tablet) 400 mg PO DAILY [facility] Last Admin: 08/09/21 08:25 Dose: 400 mg Documented by: AGNIESZKA Meclizine HCl (Meclizine Hcl 25 Mg Tablet) 25 mg PO TID PRN PRN Reason: dizziness Multivitamins/Vitamin C (Multivitamin Tablet) 1 tab PO DAILY [facility] Last Admin: 08/09/21 08:25 Dose: 1 tab Documented by: AGNIESZKA Nadolol (Nadolol 20 Mg Tablet) 20 mg PO DAILY [facility]; Protocol Last Admin: 08/09/21 09:46 Dose: 20 mg Documented by: AGNIESZKA Ondansetron HCl (Ondansetron Hcl 4 Mg/2 Ml Vial) 4 mg IVPUSH Q8H PRN PRN Reason: Nausea and Vomiting Pantoprazole Sodium (Pantoprazole Sodium 40 Mg/10 Ml Vial) 40 mg IVPUSH BID@0830,1630 [facility] Last Admin: 08/09/21 08:25 Dose: 40 mg Documented by: AGNIESZKA Pyridoxine HCl (Pyridoxine Hcl (Vitamin B6) 50 Mg Tablet) 100 mg PO DAILY [facility] Last Admin: 08/09/21 09:47 Dose: 100 mg Documented by: AGNIESZKA Sodium Chloride (0.9 % Sodium Chloride Flush 3 Ml Syringe) 3 ml IVFLUSH QSHIFT [facility] Last Admin: 08/09/21 15:16 Dose: 3 ml Documented by: BG Thiamine HCl (Thiamine Hcl 100 Mg Tablet) 100 mg PO DAILY [facility] Last Admin: 08/09/21 08:25 Dose: 100 mg Documented by: AGNIESZKA Labs CBC & Chem 7: 08/09/21 08:03 08/09/21 08:03 Labs: Laboratory Results - last 24 hr 08/08/21 08/08/21 08/08/21 14:06 17:39 17:40 Hgb 9.7 L MCV MCH MCHC RDW Plt Count MPV Immature Gran % (Auto) Neut % (Auto) Lymph % (Auto) [place] % (Auto) Eos % (Auto) Baso % (Auto) Lymph # (Auto) [place] # (Auto) Eos # (Auto) Baso # (Auto) Abs Immat Gran (auto) Absolute Neuts (auto) Absolute Nucleated RBC Nucleated RBC % (auto) Anion Gap Estim Creat Clear Calc Estimated GFR Fasting Glucose Calcium Total Bilirubin AST ALT Alkaline Phosphatase Total Protein Albumin Urine Color YELLOW Urine Appearance CLEAR Urine pH 6.5 Ur Specific [place] <= 1.005 Urine Protein NEG Urine Glucose (UA) NEG Urine Ketones NEG Urine Blood TRACE Urine Nitrite NEG Ur Leukocyte Esterase NEG Urine RBC 1-4 Urine WBC 0 Ur Squamous Epith Cells NONE Urine Bacteria NONE Stool Occult Blood POSITIVE COVID-19 ([facility]) COVID-19 Clin Com 08/08/21 08/08/21 08/09/21 20:06 22:51 08:03 Hgb 9.3 L 8.9 L MCV 110.7 H 110.5 H MCH 35.6 H 35.9 H MCHC 32.2 32.5 RDW 15.0 15.0 Plt Count 82 L 65 L MPV 9.2 L 8.8 L Immature Gran % (Auto) 0.3 0.2 Neut % (Auto) 57.2 57.8 Lymph % (Auto) 23.9 21.5 [place] % (Auto) 12.0 H 15.1 H Eos % (Auto) 5.7 H 4.8 H Baso % (Auto) 0.9 0.6 Lymph # (Auto) 1.6 1.1 L [place] # (Auto) 0.8 0.8 Eos # (Auto) 0.4 0.3 Baso # (Auto) 0.1 0.0 Abs Immat Gran (auto) 0.02 0.01 Absolute Neuts (auto) 3.9 3.0 Absolute Nucleated RBC 0.000 0.000 Nucleated RBC % (auto) 0.0 0.0 Anion Gap Estim Creat Clear Calc Estimated GFR Fasting Glucose Calcium Total Bilirubin AST ALT Alkaline Phosphatase Total Protein Albumin Urine Color Urine Appearance Urine pH Ur Specific [place] Urine Protein Urine Glucose (UA) Urine Ketones Urine Blood Urine Nitrite Ur Leukocyte Esterase Urine RBC Urine WBC Ur Squamous Epith Cells Urine Bacteria Stool Occult Blood COVID-19 ([facility]) Negative COVID-19 Clin Com See Note 08/09/21 08:03 Hgb MCV MCH MCHC RDW Plt Count MPV Immature Gran % (Auto) Neut % (Auto) Lymph % (Auto) [place] % (Auto) Eos % (Auto) Baso % (Auto) Lymph # (Auto) [place] # (Auto) Eos # (Auto) Baso # (Auto) Abs Immat Gran (auto) Absolute Neuts (auto) Absolute Nucleated RBC Nucleated RBC % (auto) Anion Gap 13 Estim Creat Clear Calc 117.7 Estimated GFR > 60 Fasting Glucose 81 Calcium 7.9 L Total Bilirubin 3.7 H AST 53 H ALT 17 Alkaline Phosphatase 141 H Total Protein 6.7 Albumin 2.7 L Urine Color Urine Appearance Urine pH Ur Specific [place] Urine Protein Urine Glucose (UA) Urine Ketones Urine Blood Urine Nitrite Ur Leukocyte Esterase Urine RBC Urine WBC Ur Squamous Epith Cells Urine Bacteria Stool Occult Blood COVID-19 ([facility]) COVID-19 Clin Com Assessment and Plan (1) GI bleed: Status: Acute (2) Alcohol abuse: Status: Acute (3) Acute alcoholic hepatitis: Status: Acute Plan 56-year-old male with known alcoholic cirrhosis in grade 2 varices presents vomiting blood with blood right blood per rectum. Continues to consume alcohol despite warnings. Hemoglobin thus far stable 1. LGIB -discussed with GI; follow up as outpatient as patient recently scoped approximately 10 days ago -attempted diet however GI upset with minimal intake -hemoglobin stable 2. EToH cirrhosis -minimal sinus by ultrasound -continue Nadolol as per GI recommendations -Follow LFTs/Coags 3. EToH abuse -observe on CIWA Care team consult Full Code Boots will require 1 midnights for document stabilization of hemoglobin and ability to take diet Quality Stroke Does the patient have a stroke diagnosis?: No VTE Prior VTE?: No VTE Risk Level:: Medical - moderate - high VTE Device Contraindication: N/A - Device Ordered VTE Drug Contraindication: Treatment Not Indicated
--- NOTE | 2021-08-09 16:04 | PC.NURSE ---
RN assumed care at 1500. Pt alert and oriented x4, calm and cooperative. Complains of abd pain, MD Fuentes aware. Pt ambulated without issues. Vitals stable. Per previous RN Chinmay, report given. Pt resting in stretcher without issues at this time, will continue to monitor.
[2021-08-09] MEDS: ondansetron HCL 4 MG/2 ML VIAL IVPUSH (16:31)
[2021-08-09] MEDS: Morphine Sulfate 4 MG/ML CARTRIDGE IVPUSH (20:51)
[2021-08-09] MEDS: Acetaminophen 325 MG TABLET 975 MG PO (20:55)
[2021-08-10 03:23] VITALS: BP 123/66; PULSE 57; RESP 20; TEMP 37; O2SAT 98
[2021-08-10 06:48] LABS: MANUAL DIFF FLAG NO
[2021-08-10 06:54] LABS: Basophils Percent Auto 0.6 % (0-2); Eosinophils Absolute Auto 0.3 X10*3/uL (0.0-0.4); Eosinophils Percent Auto 4.6 % (0-4); Hematocrit 28.3 % (42.0-52.0); Imm Gran Abs Auto 0.02 X10*3/uL (0.00-0.03); Imm Gran Pct Auto 0.4 % (0.0-0.4); Lymphocytes Percent Auto 18.5 % (20-40); Mean Corpuscular HGB Conc 31.8 g/dl (31.0-36.0); Mean Corpuscular Hemoglobin 35.6 pg (27.0-33.0); Mean Platelet Volume 9.7 fL (9.4-12.4); Monocytes Percent Auto 17.5 % (2-11); Neutrophils Absolute Auto 3.2 x10*3/uL (2.0-8.3); Neutrophils Percent Auto 58.4 % (45-73); Red Blood Count 2.53 X10*6/uL (4.60-5.80); Red Cell Distribution Width 14.6 % (11.0-16.0); White Blood Count 5.4 X10*3/uL (4.8-10.8)
[2021-08-10 06:55] LABS: Mean Corpuscular Volume 111.9 fL (80.0-98.0)
[2021-08-10 06:56] LABS: Platelet Count 86 X10*3/uL (160-400)
[2021-08-10 07:44] VITALS: BP 122/69; PULSE 56; RESP 18; TEMP 36.2; O2SAT 94
[2021-08-10] MEDS: Pantoprazole Sodium 40 MG/10 ML VIAL IVPUSH ×2 (09:15→15:41)
[2021-08-10] MEDS: 0.9 % Sodium Chloride Flush 3 ML SYRINGE IVFLUSH ×2 (09:15→15:41)
[2021-08-10] MEDS: Furosemide 40 MG TABLET PO (09:15)
[2021-08-10] MEDS: nadoloL 20 MG TABLET PO (09:15)
[2021-08-10] MEDS: Pyridoxine HCl (Vitamin B6) 50 MG TABLET 100 MG PO (09:15)
[2021-08-10] MEDS: Atorvastatin Calcium 10 MG TABLET PO (09:15)
[2021-08-10] MEDS: Lactulose 20 GM/30 ML SOLUTION PO ×2 (09:16→15:41)
[2021-08-10] MEDS: Thiamine HCL 100 MG TABLET PO (09:16)
[2021-08-10] MEDS: Multivitamin TABLET 1 TAB PO (09:16)
[2021-08-10] MEDS: Escitalopram Oxalate 10 MG TABLET PO (09:16)
[2021-08-10] MEDS: Cyanocobalamin (Vitamin B-12) 1,000 MCG TABLET 1000 MCG PO (09:16)
[2021-08-10] MEDS: Magnesium Oxide 400 MG TABLET PO (09:16)
[2021-08-10] MEDS: 0.9 % Sodium Chloride 1,000 ML 100 ML IVCONT (09:17)
[2021-08-10 09:39] LABS: Alanine Aminotransferase 16 U/L (0-40); Albumin Level 2.6 g/dL (3.5-5.0); Alkaline Phosphatase 136 U/L (39-117); Anion Gap 8 (12-20); Aspartate Amino Transferase 49 U/L (5-37); Bilirubin Total 4.9 mg/dL (0.0-1.0); Blood Urea Nitrogen 12 mg/dL (9-16); Calcium 7.9 mg/dL (8.4-10.2); Carbon Dioxide 22 mmol/L (22-29); Chloride 112 mmol/L (96-108); Creatinine Clr Calc Pharmacy 93.1; Estimated Glomerular Filt Rate > 60; Glucose Fasting 106 mg/dL (60-99); Potassium 3.3 mmol/L (3.3-5.1); Sodium 139 mmol/L (135-145); Total Protein 6.6 g/dL (6.5-8.0)
[2021-08-10] MEDS: Acetaminophen 325 MG TABLET 975 MG PO (09:41)
[2021-08-10 11:41] VITALS: BP 128/63; PULSE 53; RESP 18; TEMP 36.6; O2SAT 94
--- NOTE | 2021-08-10 14:45 | P.DS_ITS ---
DS: Providers Provider Date of Service: 08/10/21 Date of admission: 08/08/21 18:13 Date of discharge: 08/10/21 Primary care physician: Fernando Martin MD Consults: 08/08/21 18:46 Consult to Gastroenterology Routine Consulting Provider: Jorge Zavala Reason for consultation: LGIB Has provider been notified: No DS: Diagnosis Discharge Diagnosis (1) GI bleed: Status: Acute (2) Alcohol abuse: Status: Acute (3) Acute alcoholic hepatitis: Status: Acute DS: Summary Hospital Course Hospital Course: 56-year-old male with known history of alcoholic cirrhosis and grade 2 esophageal varices ( non bleeding as of EGD 07/27/2021 ) ? Presents with bright red blood from his rectum along with vomiting blood.? He was recently discharged 07/27/2021 for similar complaints.? despite warnings, he continues to drink and states over this past weekend he drink rather heavily.? The vomiting and the blo od from his bottom started yesterday however he did not wait in the ER secondary to prolonged wait times.? He presents today with the above complaints.? Hemoglobin thus far stable.? ER physician states bright red blood during rectal exam.? He will be admitted for GI consult and further workup and treatment Hospital Course Admitted to the general medical floor. Over the previous 48 hours patient has had normal bowel movements and no evidence of GI bleed. Case discussed with GI and given the recent workup no further workup is indicated at this time. On the day of discharge he has been tolerating a diet for 24 hours without any signs of bleeding or discomfort. He will be discharged home instructed to avoid alcohol of follow-up with PCP Time Spent with Patient Time attestation: Total time spent providing and/or coordinating discharge services: Discharge coordination time: Greater than 30 minutes Quality: Stroke Does the patient have a stroke diagnosis?: No Physical Exam Vital Signs: Vital Signs: Last Vital Signs Temp 97.9 F 08/10/21 11:41 Pulse 53 08/10/21 11:41 Resp 18 08/10/21 11:41 BP 128/63 08/10/21 11:41 Pulse Ox 94 08/10/21 11:41 BMI result Body Mass Index 25.2 Const: Other: awake alert oriented x3 no acute distress Resp: Other: clear to auscultation bilaterally. No rales rhonchi or wheezes Cardio: Other: no S4; positive S1-S2; no S3 murmurs rubs or gallops GI: Other: soft nontender nondistended normoactive bowel sounds x4 quadrants. No peritoneal signs noted. palpable fluid wave Extrem: Other: no edema bilaterally DS: Data Data Completed and Pending Completed studies during hospitalization [Text1]: Procedures Drainage of Peritoneal Cavity, Percutaneous Approach (04/10/20) Inspection of Upper Intestinal Tract, Via Natural or Artificial Opening Endoscopic (07/25/21) Transfusion of Nonautologous Red Blood Cells into Peripheral Vein, Percutaneous Approach (07/25/21) Labs on day of discharge: Laboratory Results - last 24 hr 08/10/21 08/10/21 06:21 06:21 WBC 5.4 RBC 2.53 L Hgb 9.0 L Hct 28.3 L MCV 111.9 H MCH 35.6 H MCHC 31.8 RDW 14.6 Plt Count 86 L D MPV 9.7 Immature Gran % (Auto) 0.4 Neut % (Auto) 58.4 Lymph % (Auto) 18.5 L [place] % (Auto) 17.5 H Eos % (Auto) 4.6 H Baso % (Auto) 0.6 Lymph # (Auto) 1.0 L [place] # (Auto) 1.0 Eos # (Auto) 0.3 Baso # (Auto) 0.0 Abs Immat Gran (auto) 0.02 Absolute Neuts (auto) 3.2 Absolute Nucleated RBC 0.000 Nucleated RBC % (auto) 0.0 Sodium 139 Potassium 3.3 Chloride 112 H Carbon Dioxide 22 Anion Gap 8 L BUN 12 Creatinine 0.96 Estim Creat Clear Calc 93.1 Estimated GFR > 60 Fasting Glucose 106 H Calcium 7.9 L Total Bilirubin 4.9 H AST 49 H ALT 16 Alkaline Phosphatase 136 H Total Protein 6.6 Albumin 2.6 L Discharge Plan Discharge Patient Disposition: Home, Self-Care Discharge Diagnosis: LGIB Referrals: Fernando Martin MD [Primary Care Provider] - 1 Week Discharge Medications: Continued furosemide 40 mg Tablet 40 mg PO DAILY Qty: 30 0RF Protocol: Hold for SBP< HOLD for SBP < : 90 pantoprazole 40 mg Tablet,Delayed Release (Dr/Ec) 40 mg PO DAILY 0RF albuterol sulfate 90 mcg/actuation Hfa Aerosol Inhaler 2 puff INHALATION Q4-6H PRN (Reason: Shortness Of Breath) 0RF lactulose 10 gram/15 mL solution 30 ml PO TID 0RF multivitamin Tablet 1 tab PO DAILY 0RF atorvastatin 10 mg tablet 1 tab PO DAILY 0RF cyanocobalamin (vitamin B-12) 1,000 mcg Tablet 1,000 mcg PO DAILY 0RF thiamine HCl (vitamin B1) 100 mg Tablet 100 mg PO DAILY 0RF magnesium oxide 400 mg (241.3 mg magnesium) tablet 1 tab PO DAILY 0RF meclizine 25 mg tablet 1 tab PO TID PRN (Reason: dizziness) 0RF pyridoxine (vitamin B6) 100 mg Tablet 100 mg PO DAILY 0RF escitalopram oxalate 10 mg tablet 1 tab PO DAILY 0RF nadolol 20 mg Tablet 20 mg PO DAILY Qty: 30 0RF Protocol: Hold for SBP/HR < HOLD for SBP < : 90 HOLD for HR < : 60 Discharge Orders: Discharge Order (Routine); Ordered 08/10/21 Ordered By: Amor Fuentes Diet: advance to usual diet Activity on Discharge: As tolerated Stand Alone Forms: Patient Portal Discharge page Care Plan Goals: Continue all outpatient medicines Health Concerns: Avoid alcohol Plan of Treatment: Follow-up with PCP Assessment: See discharge summary
--- NOTE | 2021-08-10 15:54 | MHC.CM.PN ---
Male 56 DX GIB Patient is discharged to home. He has arranged for transportation.
[2021-08-10 16:00] VITALS: BP 153/79; PULSE 60; RESP 16; TEMP 36.2; O2SAT 93
== END 2021-08-10 16:55 | disposition home or self-care (01) | DRG 253 ==
LOC: HO.ED 18:38 → HO.EDOVER 18:41 → HO.IMC 08-09 13:22 → HO.EDOVER 08-09 14:25 → HO.IMC 08-09 16:19
PROVIDERS: Admitting Provider Hospitalist; Emergency Provider Emergency Medicine; PCP Internal Medicine; Visit Provider Hospitalist
DX: K62.5 Hemorrhage of anus and rectum (principal); D68.52 Prothrombin gene mutation; I85.10 Secondary esophageal varices without bleeding; K70.30 Alcoholic cirrhosis of liver without ascites; F10.10 Alcohol abuse, uncomplicated; Z86.711 Personal history of pulmonary embolism; Z20.822 Contact with and (suspected) exposure to COVID-19; Z79.899 Other long term (current) drug therapy
CPT/HCPCS: 36415; 71046; 71101; 76705; 80048; 80053; 80076; 81001; 82272; 83880; 84484; 85025; 85610; 87635; 93005; 99219; 99285; J2270; J2405

== ENCOUNTER 2021-08-23 08:59 | Emergency (ER) | payer MEDICAID, SELFPAY ==
[2021-08-23 09:01] VITALS: BP 135/81; PULSE 59; RESP 18; TEMP 36.7; O2SAT 98; BMI 26.4
== END 2021-08-23 14:17 | disposition left against medical advice (07) ==
PROVIDERS: Emergency Provider Emergency Medicine; PCP Internal Medicine
DX: R10.9 Unspecified abdominal pain (principal)
CPT/HCPCS: 99281

== ENCOUNTER 2021-09-05 12:11 | Outpatient (REF) | payer MEDICAID, SELFPAY ==
[2021-09-05 13:18] LABS: Basophils Absolute Auto 0.1 X10*3/uL (0.0-0.2); Basophils Percent Auto 1.1 % (0-2); Eosinophils Absolute Auto 0.2 X10*3/uL (0.0-0.4); Eosinophils Percent Auto 3.2 % (0-4); Hematocrit 34.4 % (42.0-52.0); Hemoglobin 11.4 g/dl (14.0-18.0); Imm Gran Abs Auto 0.02 X10*3/uL (0.00-0.03); Imm Gran Pct Auto 0.3 % (0.0-0.4); Lymphocytes Absolute Auto 1.1 X10*3/uL (1.2-4.9); MANUAL DIFF FLAG SCAN; Mean Corpuscular HGB Conc 33.1 g/dl (31.0-36.0); Mean Corpuscular Volume 105.5 fL (80.0-98.0); Mean Platelet Volume 10.3 fL (9.4-12.4); Monocytes Absolute Auto 1.3 X10*3/uL (0.1-1.2); Monocytes Percent Auto 20.2 % (2-11); Neutrophils Absolute Auto 3.9 x10*3/uL (2.0-8.3); Neutrophils Percent Auto 58.2 % (45-73); Platelet Count 131 X10*3/uL (160-400); Red Blood Count 3.26 X10*6/uL (4.60-5.80); SCAN SMEAR FLAG 1; White Blood Count 6.7 X10*3/uL (4.8-10.8)
[2021-09-05 13:25] LABS: INTERNATIONAL NORM RATIO 1.3 (0.9-1.1); Prothrombin Time 15.2 SEC (9.9-13.0)
[2021-09-05 13:46] LABS: Alanine Aminotransferase 31 U/L (0-40); Albumin Level 3.7 g/dL (3.5-5.0); Alkaline Phosphatase 172 U/L (39-117); Anion Gap 15 (12-20); Aspartate Amino Transferase 83 U/L (5-37); Bilirubin Direct 2.5 mg/dL (0.0-0.5); Bilirubin Total 4.9 mg/dL (0.0-1.0); Blood Urea Nitrogen 23 mg/dL (9-16); Calcium 9.5 mg/dL (8.4-10.2); Carbon Dioxide 22 mmol/L (22-29); Chloride 103 mmol/L (96-108); Estimated Glomerular Filt Rate 45; Glucose Random 100 mg/dL (60-115); Potassium 5.6 mmol/L (3.3-5.1); Sodium 134 mmol/L (135-145); Total Protein 9.4 g/dL (6.5-8.0)
[2021-09-05 14:01] LABS: SLIDE REVIEW VERIFIED
[2021-09-11 15:06] LABS: FIB-ALT 25 U/L (9-46); FIB-Alpha-2-Macroglobulin 239 mg/dL (106-279); FIB-Apolipoprotein A1 169 mg/dL (94-176); FIB-GGT 415 U/L (3-85); FIB-Haptoglobin 85 mg/dL (43-212); FIB-Total Bilirubin 4.1 mg/dL (0.2-1.2); Liver Fibrosis Score 0.88; Liver Fibrosis Stage F4; Nec Inflam Act Grade A0-A1; Nec Inflam Act Score 0.24
== END 2021-09-05 12:12 | disposition home or self-care (01) ==
LOC: HO.LAB 12:11
PROVIDERS: PCP Internal Medicine; Visit Provider Internal Medicine Gastroenterology
DX: K74.60 Unspecified cirrhosis of liver (principal)
CPT/HCPCS: 36415; 80053; 81596; 82248; 85025; 85610

== ENCOUNTER 2021-10-09 14:31 | Emergency (ER) | payer MEDICAID, SELFPAY ==
[2021-10-09 15:10] VITALS: BP 111/63; PULSE 62; RESP 18; TEMP 36.6; O2SAT 96; BMI 25.2
--- NOTE | 2021-10-09 15:12 | ECG_ITS ---
Test Reason : DIZZY Blood Pressure : / mmHG Vent. Rate : 060 BPM Atrial Rate : 060 BPM P-R Int : 202 ms QRS Dur : 114 ms QT Int : 456 ms P-R-T Axes : 049 -03 069 degrees QTc Int : 456 ms Normal sinus rhythm Minimal voltage criteria for LVH, may be normal variant ( [place] product ) Borderline ECG When compared with ECG of 08-AUG-2021 13:49, No significant change was found Referred By: Generic ED Physician Electronically Signed By:Cleveland Hunter
[2021-10-09 15:25] LABS: MANUAL DIFF FLAG NO
[2021-10-09 15:26] LABS: Basophils Percent Auto 0.5 % (0-2); Eosinophils Absolute Auto 0.2 X10*3/uL (0.0-0.4); Eosinophils Percent Auto 2.5 % (0-4); Hematocrit 32.9 % (42.0-52.0); Hemoglobin 10.8 g/dl (14.0-18.0); Imm Gran Abs Auto 0.02 X10*3/uL (0.00-0.03); Imm Gran Pct Auto 0.3 % (0.0-0.4); Lymphocytes Absolute Auto 1.5 X10*3/uL (1.2-4.9); Mean Corpuscular HGB Conc 32.8 g/dl (31.0-36.0); Mean Corpuscular Hemoglobin 35.4 pg (27.0-33.0); Mean Corpuscular Volume 107.9 fL (80.0-98.0); Mean Platelet Volume 9.6 fL (9.4-12.4); Monocytes Percent Auto 16.4 % (2-11); Neutrophils Absolute Auto 3.3 x10*3/uL (2.0-8.3); Neutrophils Percent Auto 55.3 % (45-73); Red Blood Count 3.05 X10*6/uL (4.60-5.80); Red Cell Distribution Width 15.6 % (11.0-16.0); White Blood Count 5.9 X10*3/uL (4.8-10.8)
[2021-10-09 15:29] LABS: Platelet Count 73 X10*3/uL (160-400)
[2021-10-09 15:38] LABS: Anion Gap 14 (12-20); Blood Urea Nitrogen 11 mg/dL (9-16); Calcium 8.6 mg/dL (8.4-10.2); Carbon Dioxide 22 mmol/L (22-29); Chloride 108 mmol/L (96-108); Creatinine Clr Calc Pharmacy 70.4; Estimated Glomerular Filt Rate 58; Glucose Random 117 mg/dL (60-115); Potassium 3.5 mmol/L (3.3-5.1); Sodium 140 mmol/L (135-145)
== END 2021-10-09 23:02 | disposition left against medical advice (07) ==
PROVIDERS: Emergency Provider Emergency Medicine; PCP Internal Medicine
DX: R42 Dizziness and giddiness (principal)
CPT/HCPCS: 36415; 80048; 85025; 93005; 99281; 99283

== ENCOUNTER 2021-11-02 11:21 | Outpatient (REF) | payer MEDICAID, SELFPAY ==
[2021-11-02 12:17] LABS: Basophils Percent Auto 0.4 % (0-2); Eosinophils Absolute Auto 0.1 X10*3/uL (0.0-0.4); Eosinophils Percent Auto 1.9 % (0-4); Hematocrit 31.2 % (42.0-52.0); Hemoglobin 10.1 g/dl (14.0-18.0); Imm Gran Abs Auto 0.02 X10*3/uL (0.00-0.03); Imm Gran Pct Auto 0.4 % (0.0-0.4); Lymphocytes Absolute Auto 0.8 X10*3/uL (1.2-4.9); Lymphocytes Percent Auto 17.7 % (20-40); MANUAL DIFF FLAG SCAN; Mean Corpuscular HGB Conc 32.4 g/dl (31.0-36.0); Mean Corpuscular Hemoglobin 35.4 pg (27.0-33.0); Mean Corpuscular Volume 109.5 fL (80.0-98.0); Monocytes Absolute Auto 1.1 X10*3/uL (0.1-1.2); Monocytes Percent Auto 23.4 % (2-11); Neutrophils Absolute Auto 2.6 x10*3/uL (2.0-8.3); Neutrophils Percent Auto 56.2 % (45-73); Red Blood Count 2.85 X10*6/uL (4.60-5.80); Red Cell Distribution Width 14.7 % (11.0-16.0); SCAN SMEAR FLAG 1; White Blood Count 4.6 X10*3/uL (4.8-10.8)
[2021-11-02 12:20] LABS: Platelet Count 88 X10*3/uL (160-400)
[2021-11-02 12:38] LABS: SLIDE REVIEW VERIFIED
[2021-11-02 12:45] LABS: Alanine Aminotransferase 30 U/L (0-40); Albumin Level 3.4 g/dL (3.5-5.0); Alkaline Phosphatase 194 U/L (39-117); Anion Gap 11 (12-20); Aspartate Amino Transferase 86 U/L (5-37); Bilirubin Direct 2.7 mg/dL (0.0-0.5); Bilirubin Total 5.1 mg/dL (0.0-1.0); Blood Urea Nitrogen 12 mg/dL (9-16); Calcium 8.7 mg/dL (8.4-10.2); Carbon Dioxide 24 mmol/L (22-29); Chloride 107 mmol/L (96-108); Estimated Glomerular Filt Rate > 60; Glucose Fasting 118 mg/dL (60-99); Potassium 3.4 mmol/L (3.3-5.1); Sodium 139 mmol/L (135-145); Total Protein 8.2 g/dL (6.5-8.0)
== END 2021-11-02 11:22 | disposition home or self-care (01) ==
LOC: HO.LAB 11:21
PROVIDERS: PCP Internal Medicine; Visit Provider Internal Medicine Gastroenterology
DX: K74.60 Unspecified cirrhosis of liver (principal)
CPT/HCPCS: 36415; 80053; 80076; 82248; 85025

== ENCOUNTER 2022-02-22 15:06 | Emergency (ER) | payer MEDICAID, SELFPAY ==
--- NOTE | ~2022-02-22 | CT_ITS ---
EXAMINATION: CT HEAD WITHOUT CONTRAST CLINICAL INFORMATION: Left-sided weakness. Difficulty ambulating. COMPARISON: Previous head CT most recent July 2021 TECHNIQUE: Contiguous axial imaging was performed from the skull base to vertex without intravenous administration of contrast. This CT examination was performed using dose optimization techniques as appropriate, variously including the following: *Automated exposure control *Adjustment of mA and/or kV according to patient size (this includes techniques or standardized protocols for targeted exams where dose is matched to indication/reason for exam; i.e. extremities or head) *Use of iterative reconstruction technique DLP: 711 mGy-cm FINDINGS: There is no evidence of an extra-axial collection. There is no evidence of intra-axial or extra-axial hemorrhage. The ventricles and extra-axial CSF spaces are appropriate. Membreno-white matter differentiation is normal. No mass, mass effect or infarct is seen. There is significant bilateral maxillary and ethmoid sinus disease, left greater than right and left. The mastoid air cells and middle ears are clear. CT/CT head/brain wo IV con IMPRESSION: No acute intracranial findings. Severe sinus disease.
--- NOTE | ~2022-02-22 | US_ITS ---
EXAMINATION: US VENOUS ULTRASOUND WITH DOPPLER LOWER EXTREMITY, LEFT CLINICAL INFORMATION: Left lower extremity pain/cramping. COMPARISON: Left lower extremity venous ultrasound 10/15/2017 TECHNIQUE: Ultrasound of the deep veins is performed from the hip to the calf with compression sonography and color and pulse Doppler assessment. Spectral analysis with color-flow imaging is performed. FINDINGS: There is normal venous compression and respiratory variation and augmented flow. There is small amount of nonocclusive echogenic thrombus in the left common femoral vein. The visualized superficial femoral vein, profunda femoral vein, popliteal vein, and the trifurcation region shows no evidence of deep venous thrombosis. There is no significant popliteal fossa cyst. If the patient's symptoms persist, followup ultrasound in 5 days 7 days might be of value to exclude proximal propagation from a non-visualized calf vein. US/US venous duplex LE IMPRESSION: 1. Suggestion of small amount of nonocclusive thrombus in the left common femoral vein, acuity uncertain. 2. No other evidence of deep venous thrombosis. This critical result was discussed with Cat Ferraro NP at 5:29 PM on 02/22/2022 and it was ascertained that the content and urgency of the report was understood at the time of direct communication.
--- NOTE | ~2022-02-22 | CT_ITS ---
EXAMINATION: CT CHEST WITH CONTRAST CLINICAL INFORMATION: Fall. Left-sided pain. COMPARISON: Previous chest and right rib x-ray July 2021 and chest CTA May 2018 TECHNIQUE: Multidetector volumetric CT imaging of the chest was obtained after the administration of 85 mL of Omnipaque 350 intravenous contrast without immediate adverse reactions. Axial MIP volume rendering provided. Sagittal and coronal reformatted images were obtained. This CT examination was performed using dose optimization techniques as appropriate, variously including the following: *Automated exposure control *Adjustment of mA and/or kV according to patient size (this includes techniques or standardized protocols for targeted exams where dose is matched to indication/reason for exam; i.e. extremities or head) *Use of iterative reconstruction technique DLP: 242 mGy-cm FINDINGS: MANAGER FEDERAL: Unremarkable LUNGS: There is mild subsegmental atelectasis at the left lung base. The lungs are otherwise clear.. MEDIASTINUM: There are paraesophageal varices. There may be wall thickening of the distal thoracic esophagus. Normal heart size. No pericardial effusion. Small mediastinal and hilar lymph nodes. No enlarged lymph nodes. CORONARY ARTERY CALCIFICATION: Mild PLEURA: There are small left pleural effusion. No right pleural effusion. No pneumothorax. AXILLA: No lymphadenopathy. UPPER ABDOMEN: Cirrhotic-appearing liver and small amount of ascites. OSSEOUS STRUCTURES: Old left clavicle fracture. CT/CT chest w IV con IMPRESSION: Very small left pleural effusion and left lower lobe subsegmental atelectasis. Paraesophageal varices and question wall thickening of the distal thoracic esophagus. Fleischner guidelines were followed.
--- NOTE | ~2022-02-22 | CT_ITS ---
EXAMINATION: CT ABDOMEN AND PELVIS WITH CONTRAST CLINICAL INFORMATION: Fall. Left-sided pain. COMPARISON: Previous CT of the abdomen and pelvis most recent July 2021 and limited abdominal ultrasound from July 2021 TECHNIQUE: Multidetector volumetric images were obtained from the superior aspect of the liver through the pubic symphysis following administration 85 mL of Omnipaque 350 intravenous contrast. Sagittal and coronal reformatted images were obtained on the technologist's workstation. Oral contrast: Yes This CT examination was performed using dose optimization techniques as appropriate, variously including the following: *Automated exposure control *Adjustment of mA and/or kV according to patient size (this includes techniques or standardized protocols for targeted exams where dose is matched to indication/reason for exam; i.e. extremities or head) *Use of iterative reconstruction technique DLP: 447 mGy-cm FINDINGS: LUNG BASES: The visualized lung bases are unremarkable. LIVER, GALLBLADDER, AND BILIARY TREE: The liver is cirrhotic. No focal liver lesion. There are small gallstones in the gallbladder. The gallbladder wall is slightly thickened. This may be related to liver disease. There is no intra or extrahepatic biliary duct dilatation. PANCREAS: Unremarkable. SPLEEN: Upper normal in size. ADRENAL GLANDS: Unremarkable. KIDNEYS AND URETERS: The kidneys are normal in size, shape, and attenuation. No hydronephrosis, hydroureter, or calculi seen. No perinephric stranding. BLADDER: Unremarkable. GASTROINTESTINAL TRACT: Severe diverticulosis of the colon. There is wall thickening of the right colon. There is question of wall thickening of the rectum. Small bowel is unremarkable. The appendix is unremarkable. There may be wall thickening of the stomach and distal esophagus. There is a small amount of ascites. There is no evidence of free air. ABDOMINAL WALL: There is a small umbilical hernia containing ascitic fluid. There is LYMPH NODES: There are small retroperitoneal lymph nodes and periportal lymph nodes. There are no enlarged lymph nodes. VASCULAR: There are extensive varices. The hepatic veins and portal veins are patent. The abdominal aorta is normal in caliber. No aneurysm. PELVIC VISCERA: Unremarkable. OSSEOUS STRUCTURES: Degenerative changes of the spine. No fracture. Heterogeneous density in the left femoral neck unchanged from prior exam. CT/CT abdomen pelvis w IV con IMPRESSION: No acute findings in the abdomen or pelvis. Cirrhotic appearing liver, small amount of ascites and varices. Gallstones. Gallbladder wall thickening which may be related to liver disease. Wall thickening of the right colon and the rectum. There is also wall thickening of the stomach and distal thoracic esophagus. This may be related to the patient's liver disease or low albumin. Severe diverticulosis of the colon. No acute diverticulitis. Fleischner guidelines were followed.
[2022-02-22 15:33] VITALS: BP 123/82; PULSE 60; O2SAT 96
[2022-02-22 15:55] VITALS: BP 114/63; PULSE 61; RESP 18; TEMP 36.3; O2SAT 96; BMI 23.2
--- NOTE | 2022-02-22 16:16 | ED.GENADULT ---
HPI - General Adult General Chief complaint: Fall <LIZ Horner - Last Filed: 02/23/22 01:53> Stated complaint: ETOH <LIZ Horner - Last Filed: 02/23/22 01:53> Time Seen by Provider: 02/22/22 16:07 <LIZ Horner - Last Filed: 02/23/22 01:53> Source: patient <LIZ Horner Last Filed: 02/23/22 01:53> Mode of arrival: ambulatory <LIZ Horner Last Filed: 02/23/22 01:53> Limitations: other (Bizarre affect, patient intoxicated) <LIZ Horner Last Filed: 02/23/22 01:53> History of Present Illness HPI narrative: This is a 57-year-old male past medical history significant for liver cirrhosis, ascites, alcohol abuse presenting to the emergency department with multiple complaints. Patient comes in with alcohol intoxication tells me he was drinking today had a lot of wine, 5-6 glasses. He tells me that when he got up he started experiencing left-sided weakness similar to how he has been feeling for the past week, he tells me he felt like his leg was crampy and he fell. He tells me he has a history of left-sided DVTs. He tells me he was unable to get up on his own and a family member called 911. He tells me over the past week he feels as though his left side has been significantly weaker than his right side. Patient tells me he fell, unsure if he hit his head, he tells me he feels like everything hurts. Denies chest pain, shortness of breath, nausea, vomiting, headache, vision changes, dizziness. Patient not anticoagulated. <LIZ Horner Last Filed: 02/23/22 01:53> Related Data Home medications: Home Medications Medication Instructions Recorded Confirmed albuterol sulfate 90 mcg/actuation 2 puff inhalation Q4-6H PRN 05/26/20 08/08/21 aerosol inhaler Shortness Of Breath pantoprazole 40 mg tablet,delayed 40 mg PO DAILY 05/26/20 08/08/21 release atorvastatin 10 mg tablet 1 tab PO DAILY 07/25/21 08/08/21 cyanocobalamin (vitamin B-12) 1,000 mcg PO DAILY 07/25/21 08/08/21 1,000 mcg tablet escitalopram oxalate 10 mg tablet 1 tab PO DAILY 07/25/21 08/08/21 magnesium oxide 400 mg (241.3 mg 1 tab PO DAILY 07/25/21 08/08/21 magnesium) tablet meclizine 25 mg tablet 1 tab PO TID PRN dizziness 07/25/21 08/08/21 multivitamin 1 tab PO DAILY 07/25/21 08/08/21 pyridoxine (vitamin B6) 100 mg 100 mg PO DAILY 07/25/21 08/08/21 tablet thiamine HCl (vitamin B1) 100 mg 100 mg PO DAILY 07/25/21 08/08/21 tablet lactulose 10 gram/15 mL oral 30 ml PO TID 08/08/21 08/08/21 solution Previous Rx's Medication Instructions Recorded furosemide 40 mg tablet 40 mg PO DAILY #30 tabs 04/13/20 nadolol 20 mg tablet 20 mg PO DAILY #30 tabs 07/27/21 <LIZ Horner - Last Filed: 02/23/22 01:53> Allergies/adverse reactions: Allergies Allergy/AdvReac Type Severity Reaction Status Date / Time No Known Allergies Allergy Verified 02/22/22 15:55 [No Known Allergies*] <LIZ Horner Last Filed: 02/23/22 01:53> Review of Systems Review of Systems: Constitutional : No Weight loss, No Fever, No Chills, No Fatigue, No Malaise ENT/Mouth : No sore throat, No Rhinorrhea Eyes: No Eye Pain, No Swelling, No Redness Cardiovascular : No Chest Pain, No SOB, No Dyspnea on Exertion, No Orthopnea, No Edema, No Palpitations Respiratory : No Cough, No Sputum, No Wheezing Gastrointestinal : No Nausea, No Vomiting, No Diarrhea, No Constipation, No abdominal Pain, No Hematochezia, No Melena Genitourinary : No Dysuria, No Urinary Frequency, No Hematuria, Musculoskeletal : No joint pain, + Myalgias, No Joint Swelling Skin : No Skin Lesions, No rash Neuro : No Weakness, No Numbness, No Dizziness, No Headache Psych : No Anxiety/Panic, No Depression All other systems reviewed and are negative <LIZ Horner - Last Filed: 02/23/22 01:53> Yes all other systems are reviewed and are negative <LIZ Horner - Last Filed: 02/23/22 01:53> [facility] Past Medical History Attestation statement: The following information was validated with the patient. <LIZ Horner - Last Filed: 02/23/22 01:53> Source: old records reviewed and nursing notes reviewed <LIZ Horner - Last Filed: 02/23/22 01:53> Medical History: Medical History Asthma Cirrhosis of liver Hx of fall Hx pulmonary embolism Status post abdominal paracentesis <LIZ Horner - Last Filed: 02/23/22 01:53> Surgical History: Surgical History Hx of colonoscopy Hx of esophagogastroduodenoscopy Hx of right inguinal hernia repair <LIZ Horner - Last Filed: 02/23/22 01:53> Social History Social History: Social History Household Members: Family Household Members Other:: mother Housing: House Do you presently have visiting nurse or other home services: No Alcohol intake: current Alcohol intake frequency: 3 or more drinks per day Alcohol type: wine Patient Tobacco Use Status: Never used Tobacco e-Cigarette/Vaping Use: Never Used Second Hand Smoke Exposure: No Use of substances other than those prescribed or required for medical reasons: No Substance Use Type: Marijuana Advance Directives: Yes Advance Directives on File: Yes Advance Directives Date on File: 08/09/21 service: No Current occupational status: employed <LIZ Horner - Last Filed: 02/23/22 01:53> Physical Exam ED Vital Signs: Vital Signs - 24 hr 02/22/22 15:55 02/22/22 17:50 02/22/22 22:06 Temperature 97.4 F 97.4 F 98.0 F Pulse Rate 61 58 57 Respiratory Rate 18 16 17 Blood Pressure 114/63 106/63 101/55 L Pulse Oximetry 96 98 97 Oxygen Delivery Method Room Air Room Air Room Air 02/22/22 23:51 Temperature 97.5 F Pulse Rate 55 Respiratory Rate 18 Blood Pressure 95/53 L Pulse Oximetry 94 Oxygen Delivery Method Room Air BMI result Body Mass Index 23.2 Vital Signs stable <LIZ Horner - Last Filed: 02/23/22 01:53> Vital Signs - 24 hr 02/22/22 15:55 02/22/22 17:50 02/22/22 22:06 Temperature 97.4 F 97.4 F 98.0 F Pulse Rate 61 58 57 Respiratory Rate 18 16 17 Blood Pressure 114/63 106/63 101/55 L Pulse Oximetry 96 98 97 Oxygen Delivery Method Room Air Room Air Room Air 02/22/22 23:51 Temperature 97.5 F Pulse Rate 55 Respiratory Rate 18 Blood Pressure 95/53 L Pulse Oximetry 94 Oxygen Delivery Method Room Air BMI result Body Mass Index 23.2 <Pacheco Velasquez MD - Last Filed: 02/23/22 02:06> Appearance: Alert.? Oriented X3.? No acute distress.? Patient smells like alcohol. Head: Normocephalic, atraumatic, no step-offs or deformities. Face symmetric. Eyes: Pupils equal, round and reactive to light.? ENT: Pharynx normal.? Neck: Normal inspection.? Neck supple.? CVS: Normal heart rate and rhythm.? Pulses normal.? Respiratory: No respiratory distress.? Breath sounds normal.? Abdomen: Soft and nontender.? Skin: Skin warm and dry.? Normal skin color.? Normal skin turgor.? Extremities: No lower extremity edema.? No calf ttp. Global weakness Back: No midline tenderness, no C-spine tenderness, full range of motion, no CVA tenderness bilaterally Neuro: Oriented X 3.?No sensory deficit. Patient moving all 4 extremities well.. Weakness noted to left upper extremity, left lower extremity. Patient with decreased hand reed fixer on the left. Tells me he cannot perform pronator drift. Unable to lift his left leg from the stretcher. Normal sensation to bilateral lower extremities with no saddle paresthesias <LIZ Horner - Last Filed: 02/23/22 01:53> Course Reevaluation(s) Reevaluation #1: CBC appears to have a macrocytic anemia, however it appears as though this is not a new finding. Patient's potassium 2.8 given 40 of oral potassium, noted to have an VIKAS, receiving hydration. CRP elevated 3.30. Albumin 2.4. Study of left lower extremity small amount of nonocclusive thrombus in the left common femoral vein acuity uncertain. When patient ritu up will ask him questions in regards to this finding. CT of the head with no acute findings. CT of the chest with very small left pleural effusion and left lower lobe subsegmental atelectasis. 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 CT of the abdomen with cirrhotic appearing liver and small amount of ascites and varices. There is gallbladder wall thickening however no pain with palpation of the right upper quadrant. Diverticulosis without diverticulitis. <LIZ Horner Last Filed: 02/23/22 01:53> Time: 19:20 <LIZ Horner - Last Filed: 02/23/22 01:53> Reevaluation #2: Repeat CMP was then improved potassium 20 noris equivalents will be given by mouth at this time. VIKAS improving. Albumin remains low. I was able to go and re-evaluate patient he tells me that his whole body hurts, he tells me he feels weak throughout and he feels like he cannot get up and walk for me. Patient minimally participating in physical exam. Now tells me that he is having severe left shoulder pain imaging will be ordered. Patient's O2 saturation is noted to be 92% on room air, not complaining of chest pain or shortness of breath due to lower extremity thrombus is will obtain a CTA to rule out PE. Discssed with Dr. Velasquez- recommends not starting anticoagulants for LE US findings due to plt count. recommends obtaining MR of head to further eval L sided weakness X1 this will be done tomorrow . Patient was already injected with IV contrast therefore patient will by hydrated and CTA pe will be done in Am. Also made Dr. Velasquez aware of albumin level tells me no need for infusion at this time. Sign out given to Dr. Drake pending reeval, cta, MRI imaging and repeat labs. <LIZ Horner - Last Filed: 02/23/22 01:53> Time: 01:41 <LIZ Horner - Last Filed: 02/23/22 01:53> Medical Decision Making MDM Narrative Medical decision making narrative: 1634 57-year-old male presents with acute alcohol intoxication and fall just prior to arrival. Complains of full body aches and pains, left lower extremity cramping, patien history of DVT. Also complaining of left-sided weakness x1 week worsening. Physical examination with weakness to left upper and left lower extremities, unable to perform pronator drift he tells me. Normal sensation throughout. Facial symmetry noted. Decreased hand reed fixer on the left. Patient speaking with fluid speech, no aphasia. Patient noted to smell like alcohol and appears to be acutely intoxicated. Low suspicion for stroke, Guillain-Sanborn, MS . Will rule out DVT, intracranial hemorrhage. Likely alcohol intoxication. Patient's left-sided deficits of been going on for 1 week therefore no need for stroke protocol at this time. Plan at this time is labs, imaging, urine, left lower extremity DVT study, as patient fell and history is unclear will obtain trauma scans of chest, abdomen and pelvis. Patient will also require re-evaluation once sober to get a better history about his left-sided weakness. <LIZ Horner - Last Filed: 02/23/22 01:53> 1634 57-year-old male presents with acute alcohol intoxication and fall just prior to arrival. Complains of full body aches and pains, left lower extremity cramping, patien history of DVT. Also complaining of left-sided weakness x1 week worsening. Physical examination with weakness to left upper and left lower extremities, unable to perform pronator drift he tells me. Normal sensation throughout. Facial symmetry noted. Decreased hand reed fixer on the left. Patient speaking with fluid speech, no aphasia. Patient noted to smell like alcohol and appears to be acutely intoxicated. Low suspicion for stroke, Guillain-Sanborn, MS . Will rule out DVT, intracranial hemorrhage. Likely alcohol intoxication. Patient's left-sided deficits of been going on for 1 week therefore no need for stroke protocol at this time. Plan at this time is labs, imaging, urine, left lower extremity DVT study, as patient fell and history is unclear will obtain trauma scans of chest, abdomen and pelvis. Patient will also require re-evaluation once sober to get a better history about his left-sided weakness. Patient seen and evaluated at 02:00 patient complaining of weakness for about 6 months left more than the right able to ambulate has left footdrop which is also old clinically patient has equal strength both sites no focal weakness noticed has hypokalemia which was replaced alcoholic dehydrated with pancytopenia <Pacheco Velasquez MD - Last Filed: 02/23/22 02:06> Medical Records Medical records reviewed: Yes I reviewed the patient's medical records. <LIZ Horner - Last Filed: 02/23/22 01:53> Lab Data Lab results reviewed: Yes I reviewed the patient's lab results. <LIZ Horner - Last Filed: 02/23/22 01:53> Result diagrams: : 02/22/22 16:43 02/23/22 00:52 <LIZ Horner - Last Filed: 02/23/22 01:53> Labs: Lab Results 02/22/22 02/22/22 02/22/22 Range/Units 16:43 16:43 16:43 WBC 6.9 (4.8-10.8) X10*3/uL RBC 2.39 L (4.60-5.80) X10*6/uL Hgb 8.5 L (14.0-18.0) g/dl Hct 24.3 L D (42.0-52.0) % MCV 101.7 H (80.0-98.0) fL MCH 35.6 H (27.0-33.0) pg MCHC 35.0 (31.0-36.0) g/dl RDW 15.9 (11.0-16.0) % Plt Count 69 L (160-400) X10*3/uL MPV 9.9 (9.4-12.4) fL Immature Gran % (Auto) 0.3 (0.0-0.4) % Neut % (Auto) 55.0 (45-73) % Lymph % (Auto) 26.6 (20-40) % [place] % (Auto) 15.3 H (2-11) % Eos % (Auto) 2.5 (0-4) % Baso % (Auto) 0.3 (0-2) % Lymph # (Auto) 1.8 (1.2-4.9) X10*3/uL [place] # (Auto) 1.1 (0.1-1.2) X10*3/uL Eos # (Auto) 0.2 (0.0-0.4) X10*3/uL Baso # (Auto) 0.0 (0.0-0.2) X10*3/uL Abs Immat Gran (auto) 0.02 (0.00-0.03) X10*3/uL Absolute Neuts (auto) 3.8 (2.0-8.3) x10*3/uL Absolute Nucleated RBC 0.000 (0.0-0.012) X10*3/uL Nucleated RBC % (auto) 0.0 (0.0-0.2) /100WBC ESR 77 H (0-15) MM/HR Sodium 136 (135-145) mmol/L Potassium 2.8 L (3.3-5.1) mmol/L Chloride 102 (96-108) mmol/L Carbon Dioxide 20 L (22-29) mmol/L Anion Gap 17 (12-20) BUN 17 H (9-16) mg/dL Creatinine 1.65 H (0.5-1.4) mg/dL Estim Creat Clear Calc 53.5 Estimated GFR 43 Random Glucose 117 H (60-115) mg/dL Calcium 7.8 L D (8.4-10.2) mg/dL Magnesium 1.6 (1.6-2.6) mg/dL Total Bilirubin 5.4 H (0.0-1.0) mg/dL AST 135 H (5-37) U/L ALT 30 (0-40) U/L Alkaline Phosphatase 282 H D (39-117) U/L Total Creatine Kinase (38-174) U/L C-Reactive Protein 3.30 H (< or = 0.50) mg/dL Total Protein 7.6 (6.5-8.0) g/dL Albumin 2.4 L D (3.5-5.0) g/dL Urine Color Urine Appearance Urine pH (5.0-9.0) Ur Specific [place] (1.005-1.025) Urine Protein (Neg-Trace) mg/dL Urine Glucose (UA) (Negative) mg/dL Urine Ketones (Negative) mg/dL Urine Blood (Negative) Urine Nitrite (Negative) Ur Leukocyte Esterase (Negative) Urine RBC (0-2) /HPF Urine WBC (0-5) /HPF Ur Squamous Epith Cells (0-2) /HPF Ur Transition Epith Cell Ur Renal Epithelial Cell Urine Bacteria (None Seen) Hyaline Casts (0-2) /LPF Granular Casts Urine Opiates Screen (Not Detect) Urine Fentanyl Screen (Not Detect) Ur Barbiturates Screen (Not Detect) Ur Phencyclidine Scrn (Not Detect) Ur Amphetamines Screen (Not Detect) U Benzodiazepines Scrn (Not Detect) Urine Cocaine Screen (Not Detect) U Marijuana (THC) Screen (Not Detect) Ethyl Alcohol 349 H* mg/dL COVID-19 (LETICIA) (Negative) COVID-19 Clin Com 02/22/22 02/22/22 02/22/22 Range/Units 16:43 19:32 19:32 WBC (4.8-10.8) X10*3/uL RBC (4.60-5.80) X10*6/uL Hgb (14.0-18.0) g/dl Hct (42.0-52.0) % MCV (80.0-98.0) fL MCH (27.0-33.0) pg MCHC (31.0-36.0) g/dl RDW (11.0-16.0) % Plt Count (160-400) X10*3/uL MPV (9.4-12.4) fL Immature Gran % (Auto) (0.0-0.4) % Neut % (Auto) (45-73) % Lymph % (Auto) (20-40) % [place] % (Auto) (2-11) % Eos % (Auto) (0-4) % Baso % (Auto) (0-2) % Lymph # (Auto) (1.2-4.9) X10*3/uL [place] # (Auto) (0.1-1.2) X10*3/uL Eos # (Auto) (0.0-0.4) X10*3/uL Baso # (Auto) (0.0-0.2) X10*3/uL Abs Immat Gran (auto) (0.00-0.03) X10*3/uL Absolute Neuts (auto) (2.0-8.3) x10*3/uL Absolute Nucleated RBC (0.0-0.012) X10*3/uL Nucleated RBC % (auto) (0.0-0.2) /100WBC ESR (0-15) MM/HR Sodium (135-145) mmol/L Potassium (3.3-5.1) mmol/L Chloride (96-108) mmol/L Carbon Dioxide (22-29) mmol/L Anion Gap (12-20) BUN (9-16) mg/dL Creatinine (0.5-1.4) mg/dL Estim Creat Clear Calc Estimated GFR Random Glucose (60-115) mg/dL Calcium (8.4-10.2) mg/dL Magnesium (1.6-2.6) mg/dL Total Bilirubin (0.0-1.0) mg/dL AST (5-37) U/L ALT (0-40) U/L Alkaline Phosphatase (39-117) U/L Total Creatine Kinase (38-174) U/L C-Reactive Protein (< or = 0.50) mg/dL Total Protein (6.5-8.0) g/dL Albumin (3.5-5.0) g/dL Urine Color Dark Yellow Urine Appearance Clear Urine pH 6.0 (5.0-9.0) Ur Specific [place] 1.015 (1.005-1.025) Urine Protein 30 (1+) H (Neg-Trace) mg/dL Urine Glucose (UA) Negative (Negative) mg/dL Urine Ketones Negative (Negative) mg/dL Urine Blood Small (1+) H (Negative) Urine Nitrite Negative (Negative) Ur Leukocyte Esterase Negative (Negative) Urine RBC 0-2 (0-2) /HPF Urine WBC 0-5 (0-5) /HPF Ur Squamous Epith Cells 0-2 (0-2) /HPF Ur Transition Epith Cell Present Ur Renal Epithelial Cell Present Urine Bacteria None Seen (None Seen) Hyaline Casts 0-2 (0-2) /LPF Granular Casts Present Urine Opiates Screen Not Detected (Not Detect) Urine Fentanyl Screen Not Detected (Not Detect) Ur Barbiturates Screen Not Detected (Not Detect) Ur Phencyclidine Scrn Not Detected (Not Detect) Ur Amphetamines Screen Not Detected (Not Detect) U Benzodiazepines Scrn Not Detected (Not Detect) Urine Cocaine Screen Not Detected (Not Detect) U Marijuana (THC) Screen Not Detected (Not Detect) Ethyl Alcohol mg/dL COVID-19 (LETICIA) Negative (Negative) COVID-19 Clin Com See Note 02/23/22 Range/Units 00:52 WBC (4.8-10.8) X10*3/uL RBC (4.60-5.80) X10*6/uL Hgb (14.0-18.0) g/dl Hct (42.0-52.0) % MCV (80.0-98.0) fL MCH (27.0-33.0) pg MCHC (31.0-36.0) g/dl RDW (11.0-16.0) % Plt Count (160-400) X10*3/uL MPV (9.4-12.4) fL Immature Gran % (Auto) (0.0-0.4) % Neut % (Auto) (45-73) % Lymph % (Auto) (20-40) % [place] % (Auto) (2-11) % Eos % (Auto) (0-4) % Baso % (Auto) (0-2) % Lymph # (Auto) (1.2-4.9) X10*3/uL [place] # (Auto) (0.1-1.2) X10*3/uL Eos # (Auto) (0.0-0.4) X10*3/uL Baso # (Auto) (0.0-0.2) X10*3/uL Abs Immat Gran (auto) (0.00-0.03) X10*3/uL Absolute Neuts (auto) (2.0-8.3) x10*3/uL Absolute Nucleated RBC (0.0-0.012) X10*3/uL Nucleated RBC % (auto) (0.0-0.2) /100WBC ESR (0-15) MM/HR Sodium 142 (135-145) mmol/L Potassium 3.2 L (3.3-5.1) mmol/L Chloride 110 H (96-108) mmol/L Carbon Dioxide 21 L (22-29) mmol/L Anion Gap 14 (12-20) BUN 16 (9-16) mg/dL Creatinine 1.48 H (0.5-1.4) mg/dL Estim Creat Clear Calc 59.7 Estimated GFR 49 Random Glucose 101 (60-115) mg/dL Calcium 7.4 L (8.4-10.2) mg/dL Magnesium (1.6-2.6) mg/dL Total Bilirubin 4.7 H (0.0-1.0) mg/dL AST 130 H (5-37) U/L ALT 27 (0-40) U/L Alkaline Phosphatase 258 H (39-117) U/L Total Creatine Kinase 384 H (38-174) U/L C-Reactive Protein (< or = 0.50) mg/dL Total Protein 6.7 (6.5-8.0) g/dL Albumin 2.2 L (3.5-5.0) g/dL Urine Color Urine Appearance Urine pH (5.0-9.0) Ur Specific [place] (1.005-1.025) Urine Protein (Neg-Trace) mg/dL Urine Glucose (UA) (Negative) mg/dL Urine Ketones (Negative) mg/dL Urine Blood (Negative) Urine Nitrite (Negative) Ur Leukocyte Esterase (Negative) Urine RBC (0-2) /HPF Urine WBC (0-5) /HPF Ur Squamous Epith Cells (0-2) /HPF Ur Transition Epith Cell Ur Renal Epithelial Cell Urine Bacteria (None Seen) Hyaline Casts (0-2) /LPF Granular Casts Urine Opiates Screen (Not Detect) Urine Fentanyl Screen (Not Detect) Ur Barbiturates Screen (Not Detect) Ur Phencyclidine Scrn (Not Detect) Ur Amphetamines Screen (Not Detect) U Benzodiazepines Scrn (Not Detect) Urine Cocaine Screen (Not Detect) U Marijuana (THC) Screen (Not Detect) Ethyl Alcohol mg/dL COVID-19 (LETICIA) (Negative) COVID-19 Clin Com <LIZ Horner - Last Filed: 02/23/22 01:53> Lab Results 02/22/22 02/22/22 02/22/22 Range/Units 16:43 16:43 16:43 WBC 6.9 (4.8-10.8) X10*3/uL RBC 2.39 L (4.60-5.80) X10*6/uL Hgb 8.5 L (14.0-18.0) g/dl Hct 24.3 L D (42.0-52.0) % MCV 101.7 H (80.0-98.0) fL MCH 35.6 H (27.0-33.0) pg MCHC 35.0 (31.0-36.0) g/dl RDW 15.9 (11.0-16.0) % Plt Count 69 L (160-400) X10*3/uL MPV 9.9 (9.4-12.4) fL Immature Gran % (Auto) 0.3 (0.0-0.4) % Neut % (Auto) 55.0 (45-73) % Lymph % (Auto) 26.6 (20-40) % [place] % (Auto) 15.3 H (2-11) % Eos % (Auto) 2.5 (0-4) % Baso % (Auto) 0.3 (0-2) % Lymph # (Auto) 1.8 (1.2-4.9) X10*3/uL [place] # (Auto) 1.1 (0.1-1.2) X10*3/uL Eos # (Auto) 0.2 (0.0-0.4) X10*3/uL Baso # (Auto) 0.0 (0.0-0.2) X10*3/uL Abs Immat Gran (auto) 0.02 (0.00-0.03) X10*3/uL Absolute Neuts (auto) 3.8 (2.0-8.3) x10*3/uL Absolute Nucleated RBC 0.000 (0.0-0.012) X10*3/uL Nucleated RBC % (auto) 0.0 (0.0-0.2) /100WBC ESR 77 H (0-15) MM/HR Sodium 136 (135-145) mmol/L Potassium 2.8 L (3.3-5.1) mmol/L Chloride 102 (96-108) mmol/L Carbon Dioxide 20 L (22-29) mmol/L Anion Gap 17 (12-20) BUN 17 H (9-16) mg/dL Creatinine 1.65 H (0.5-1.4) mg/dL Estim Creat Clear Calc 53.5 Estimated GFR 43 Random Glucose 117 H (60-115) mg/dL Calcium 7.8 L D (8.4-10.2) mg/dL Magnesium 1.6 (1.6-2.6) mg/dL Total Bilirubin 5.4 H (0.0-1.0) mg/dL AST 135 H (5-37) U/L ALT 30 (0-40) U/L Alkaline Phosphatase 282 H D (39-117) U/L Total Creatine Kinase (38-174) U/L C-Reactive Protein 3.30 H (< or = 0.50) mg/dL Total Protein 7.6 (6.5-8.0) g/dL Albumin 2.4 L D (3.5-5.0) g/dL Urine Color Urine Appearance Urine pH (5.0-9.0) Ur Specific [place] (1.005-1.025) Urine Protein (Neg-Trace) mg/dL Urine Glucose (UA) (Negative) mg/dL Urine Ketones (Negative) mg/dL Urine Blood (Negative) Urine Nitrite (Negative) Ur Leukocyte Esterase (Negative) Urine RBC (0-2) /HPF Urine WBC (0-5) /HPF Ur Squamous Epith Cells (0-2) /HPF Ur Transition Epith Cell Ur Renal Epithelial Cell Urine Bacteria (None Seen) Hyaline Casts (0-2) /LPF Granular Casts Urine Opiates Screen (Not Detect) Urine Fentanyl Screen (Not Detect) Ur Barbiturates Screen (Not Detect) Ur Phencyclidine Scrn (Not Detect) Ur Amphetamines Screen (Not Detect) U Benzodiazepines Scrn (Not Detect) Urine Cocaine Screen (Not Detect) U Marijuana (THC) Screen (Not Detect) Ethyl Alcohol 349 H* mg/dL COVID-19 (LETICIA) (Negative) COVID-19 Clin Com 02/22/22 02/22/22 02/22/22 Range/Units 16:43 19:32 19:32 WBC (4.8-10.8) X10*3/uL RBC (4.60-5.80) X10*6/uL Hgb (14.0-18.0) g/dl Hct (42.0-52.0) % MCV (80.0-98.0) fL MCH (27.0-33.0) pg MCHC (31.0-36.0) g/dl RDW (11.0-16.0) % Plt Count (160-400) X10*3/uL MPV (9.4-12.4) fL Immature Gran % (Auto) (0.0-0.4) % Neut % (Auto) (45-73) % Lymph % (Auto) (20-40) % [place] % (Auto) (2-11) % Eos % (Auto) (0-4) % Baso % (Auto) (0-2) % Lymph # (Auto) (1.2-4.9) X10*3/uL [place] # (Auto) (0.1-1.2) X10*3/uL Eos # (Auto) (0.0-0.4) X10*3/uL Baso # (Auto) (0.0-0.2) X10*3/uL Abs Immat Gran (auto) (0.00-0.03) X10*3/uL Absolute Neuts (auto) (2.0-8.3) x10*3/uL Absolute Nucleated RBC (0.0-0.012) X10*3/uL Nucleated RBC % (auto) (0.0-0.2) /100WBC ESR (0-15) MM/HR Sodium (135-145) mmol/L Potassium (3.3-5.1) mmol/L Chloride (96-108) mmol/L Carbon Dioxide (22-29) mmol/L Anion Gap (12-20) BUN (9-16) mg/dL Creatinine (0.5-1.4) mg/dL Estim Creat Clear Calc Estimated GFR Random Glucose (60-115) mg/dL Calcium (8.4-10.2) mg/dL Magnesium (1.6-2.6) mg/dL Total Bilirubin (0.0-1.0) mg/dL AST (5-37) U/L ALT (0-40) U/L Alkaline Phosphatase (39-117) U/L Total Creatine Kinase (38-174) U/L C-Reactive Protein (< or = 0.50) mg/dL Total Protein (6.5-8.0) g/dL Albumin (3.5-5.0) g/dL Urine Color Dark Yellow Urine Appearance Clear Urine pH 6.0 (5.0-9.0) Ur Specific [place] 1.015 (1.005-1.025) Urine Protein 30 (1+) H (Neg-Trace) mg/dL Urine Glucose (UA) Negative (Negative) mg/dL Urine Ketones Negative (Negative) mg/dL Urine Blood Small (1+) H (Negative) Urine Nitrite Negative (Negative) Ur Leukocyte Esterase Negative (Negative) Urine RBC 0-2 (0-2) /HPF Urine WBC 0-5 (0-5) /HPF Ur Squamous Epith Cells 0-2 (0-2) /HPF Ur Transition Epith Cell Present Ur Renal Epithelial Cell Present Urine Bacteria None Seen (None Seen) Hyaline Casts 0-2 (0-2) /LPF Granular Casts Present Urine Opiates Screen Not Detected (Not Detect) Urine Fentanyl Screen Not Detected (Not Detect) Ur Barbiturates Screen Not Detected (Not Detect) Ur Phencyclidine Scrn Not Detected (Not Detect) Ur Amphetamines Screen Not Detected (Not Detect) U Benzodiazepines Scrn Not Detected (Not Detect) Urine Cocaine Screen Not Detected (Not Detect) U Marijuana (THC) Screen Not Detected (Not Detect) Ethyl Alcohol mg/dL COVID-19 (LETICIA) Negative (Negative) COVID-19 Clin Com See Note 02/23/22 Range/Units 00:52 WBC (4.8-10.8) X10*3/uL RBC (4.60-5.80) X10*6/uL Hgb (14.0-18.0) g/dl Hct (42.0-52.0) % MCV (80.0-98.0) fL MCH (27.0-33.0) pg MCHC (31.0-36.0) g/dl RDW (11.0-16.0) % Plt Count (160-400) X10*3/uL MPV (9.4-12.4) fL Immature Gran % (Auto) (0.0-0.4) % Neut % (Auto) (45-73) % Lymph % (Auto) (20-40) % [place] % (Auto) (2-11) % Eos % (Auto) (0-4) % Baso % (Auto) (0-2) % Lymph # (Auto) (1.2-4.9) X10*3/uL [place] # (Auto) (0.1-1.2) X10*3/uL Eos # (Auto) (0.0-0.4) X10*3/uL Baso # (Auto) (0.0-0.2) X10*3/uL Abs Immat Gran (auto) (0.00-0.03) X10*3/uL Absolute Neuts (auto) (2.0-8.3) x10*3/uL Absolute Nucleated RBC (0.0-0.012) X10*3/uL Nucleated RBC % (auto) (0.0-0.2) /100WBC ESR (0-15) MM/HR Sodium 142 (135-145) mmol/L Potassium 3.2 L (3.3-5.1) mmol/L Chloride 110 H (96-108) mmol/L Carbon Dioxide 21 L (22-29) mmol/L Anion Gap 14 (12-20) BUN 16 (9-16) mg/dL Creatinine 1.48 H (0.5-1.4) mg/dL Estim Creat Clear Calc 59.7 Estimated GFR 49 Random Glucose 101 (60-115) mg/dL Calcium 7.4 L (8.4-10.2) mg/dL Magnesium (1.6-2.6) mg/dL Total Bilirubin 4.7 H (0.0-1.0) mg/dL AST 130 H (5-37) U/L ALT 27 (0-40) U/L Alkaline Phosphatase 258 H (39-117) U/L Total Creatine Kinase 384 H (38-174) U/L C-Reactive Protein (< or = 0.50) mg/dL Total Protein 6.7 (6.5-8.0) g/dL Albumin 2.2 L (3.5-5.0) g/dL Urine Color Urine Appearance Urine pH (5.0-9.0) Ur Specific [place] (1.005-1.025) Urine Protein (Neg-Trace) mg/dL Urine Glucose (UA) (Negative) mg/dL Urine Ketones (Negative) mg/dL Urine Blood (Negative) Urine Nitrite (Negative) Ur Leukocyte Esterase (Negative) Urine RBC (0-2) /HPF Urine WBC (0-5) /HPF Ur Squamous Epith Cells (0-2) /HPF Ur Transition Epith Cell Ur Renal Epithelial Cell Urine Bacteria (None Seen) Hyaline Casts (0-2) /LPF Granular Casts Urine Opiates Screen (Not Detect) Urine Fentanyl Screen (Not Detect) Ur Barbiturates Screen (Not Detect) Ur Phencyclidine Scrn (Not Detect) Ur Amphetamines Screen (Not Detect) U Benzodiazepines Scrn (Not Detect) Urine Cocaine Screen (Not Detect) U Marijuana (THC) Screen (Not Detect) Ethyl Alcohol mg/dL COVID-19 (LETICIA) (Negative) COVID-19 Clin Com <Pacheco Velasquez MD - Last Filed: 02/23/22 02:06> Critical Care Time Critical Care Time Critical Care Time: Yes <LIZ Horner - Last Filed: 02/23/22 01:53> Total Critical Care Time: 45 <LIZ Horner - Last Filed: 02/23/22 01:53> Attestation: I attest to this time spent taking care of the patient, obtaining history, physical, reviewing labs, imaging, speaking to my attending <LIZ Horner - Last Filed: 02/23/22 01:53> Discharge Plan Discharge Clinical Impression: ETOH abuse, Fall, Acute hypokalemia, VIKAS (acute kidney injury), Left-sided weakness, Anemia, macrocytic <LIZ Horner - Last Filed: 02/23/22 01:53> Patient Disposition: Still a Patient <LIZ Horner - Last Filed: 02/23/22 01:53> Prescriptions: No Action furosemide 40 mg Tablet 40 mg PO DAILY Qty: 30 0RF Protocol: Hold for SBP< HOLD for SBP < : 90 pantoprazole 40 mg Tablet,Delayed Release (Dr/Ec) 40 mg PO DAILY albuterol sulfate 90 mcg/actuation Hfa Aerosol Inhaler 2 puff INHALATION Q4-6H PRN (Reason: Shortness Of Breath) lactulose 10 gram/15 mL solution 30 ml PO TID multivitamin Tablet 1 tab PO DAILY atorvastatin 10 mg tablet 1 tab PO DAILY cyanocobalamin (vitamin B-12) 1,000 mcg Tablet 1,000 mcg PO DAILY thiamine HCl (vitamin B1) 100 mg Tablet 100 mg PO DAILY magnesium oxide 400 mg (241.3 mg magnesium) tablet 1 tab PO DAILY meclizine 25 mg tablet 1 tab PO TID PRN (Reason: dizziness) pyridoxine (vitamin B6) 100 mg Tablet 100 mg PO DAILY escitalopram oxalate 10 mg tablet 1 tab PO DAILY nadolol 20 mg Tablet 20 mg PO DAILY Qty: 30 0RF Protocol: Hold for SBP/HR < HOLD for SBP < : 90 HOLD for HR < : 60 <LIZ Horner - Last Filed: 02/23/22 01:53>
--- NOTE | 2022-02-22 16:17 | ECG_ITS ---
Test Reason : FALL Blood Pressure : / mmHG Vent. Rate : 062 BPM Atrial Rate : 062 BPM P-R Int : 206 ms QRS Dur : 118 ms QT Int : 498 ms P-R-T Axes : 051 -16 061 degrees QTc Int : 505 ms Normal sinus rhythm Non-specific intra-ventricular conduction delay Minimal voltage criteria for LVH, may be normal variant ( [place] product ) Nonspecific T wave abnormality Prolonged QT Abnormal ECG When compared with ECG of 09-OCT-2021 15:10, Nonspecific T wave abnormality now evident in Anterior leads QT has lengthened Referred By: Cat Ferraro Electronically Signed By:CHANDA MORALES
[2022-02-22 16:49] LABS: MANUAL DIFF FLAG NO
[2022-02-22 16:52] LABS: Basophils Percent Auto 0.3 % (0-2); Eosinophils Absolute Auto 0.2 X10*3/uL (0.0-0.4); Eosinophils Percent Auto 2.5 % (0-4); Hematocrit 24.3 % (42.0-52.0); Hemoglobin 8.5 g/dl (14.0-18.0); Imm Gran Abs Auto 0.02 X10*3/uL (0.00-0.03); Imm Gran Pct Auto 0.3 % (0.0-0.4); Lymphocytes Absolute Auto 1.8 X10*3/uL (1.2-4.9); Lymphocytes Percent Auto 26.6 % (20-40); Mean Corpuscular Hemoglobin 35.6 pg (27.0-33.0); Mean Corpuscular Volume 101.7 fL (80.0-98.0); Mean Platelet Volume 9.9 fL (9.4-12.4); Monocytes Absolute Auto 1.1 X10*3/uL (0.1-1.2); Monocytes Percent Auto 15.3 % (2-11); Neutrophils Absolute Auto 3.8 x10*3/uL (2.0-8.3); Red Blood Count 2.39 X10*6/uL (4.60-5.80); Red Cell Distribution Width 15.9 % (11.0-16.0); White Blood Count 6.9 X10*3/uL (4.8-10.8)
[2022-02-22 16:53] LABS: Platelet Count 69 X10*3/uL (160-400)
[2022-02-22 17:05] LABS: COVID-19 Test Negative (Negative); IDNOW Serial# 16C4AD1C
[2022-02-22 17:16] LABS: Alanine Aminotransferase 30 U/L (0-40); Albumin Level 2.4 g/dL (3.5-5.0); Alkaline Phosphatase 282 U/L (39-117); Aspartate Amino Transferase 135 U/L (5-37); Bilirubin Total 5.4 mg/dL (0.0-1.0); Blood Urea Nitrogen 17 mg/dL (9-16); Calcium 7.8 mg/dL (8.4-10.2); Creatinine Clr Calc Pharmacy 53.5; Estimated Glomerular Filt Rate 43; Ethanol 349 mg/dL; Glucose Random 117 mg/dL (60-115); Magnesium 1.6 mg/dL (1.6-2.6); Total Protein 7.6 g/dL (6.5-8.0)
[2022-02-22 17:26] LABS: Anion Gap 17 (12-20); Carbon Dioxide 20 mmol/L (22-29); Chloride 102 mmol/L (96-108); Potassium 2.8 mmol/L (3.3-5.1); Sodium 136 mmol/L (135-145)
[2022-02-22 17:32] LABS: Erythrocyte Sedimentation Rate 77 MM/HR (0-15)
[2022-02-22 17:50] VITALS: BP 106/63; PULSE 58; RESP 16; TEMP 36.3; O2SAT 98
[2022-02-22] MEDS: iohexoL 350 MG/ML 100 ML INFUS..BTL IV (18:12)
[2022-02-22] MEDS: 0.9 % Sodium Chloride 1,000 ML 999 ML IV ×2 (18:45→18:48)
[2022-02-22] MEDS: Potassium Chloride ER 20 MEQ TAB.ER.PRT 40 MEQ PO (19:30)
[2022-02-22 19:45] LABS: Appearance Urine Clear; Color Urine Dark Yellow; Glucose Urine UA Negative (Negative); Leukocyte Esterase Urine Negative (Negative); Nitrite Urine Negative (Negative); Specific Gravity - Urine 1.015 (1.005-1.025); UMIC TRIGGER UACC YES; Urine Blood Small (1+) (Negative); Urine Ketones Negative (Negative); Urine Protein 30 (1+) mg/dL (Neg-Trace)
[2022-02-22 20:05] LABS: Amphetamine Screen Urine Not Detected (Not Detect); Barbiturates, Urine Not Detected (Not Detect); Benzodiazepines Screen Urine Not Detected (Not Detect); Cannabinoid Screen Urine Not Detected (Not Detect); Cocaine Screen Urine Not Detected (Not Detect); Fentanyl, urine Not Detected (Not Detect); Opiate Screen Urine Not Detected (Not Detect); Phencyclidine Screen Urine Not Detected (Not Detect)
[2022-02-22 20:26] LABS: Bacteria Urine None Seen (None Seen); Granular Casts Urine Present; Hyaline Casts Urine 0-2 /LPF (0-2); RBC Urine 0-2 /HPF (0-2); Renal Epithelial Cells Urine Present; Squamous Epithelial Cell Urine 0-2 /HPF (0-2); Transitional Epi Cells Urine Present; WBC Urine 0-5 /HPF (0-5)
--- NOTE | 2022-02-22 21:28 | PC.NURSE ---
pt drowsy and sleeping, when awake ox3, ivf discontinued, reporting 8/10 pain in his left knee, no new orders at this time.
[2022-02-22 22:06] VITALS: BP 101/55; PULSE 57; RESP 17; TEMP 36.7; O2SAT 97
[2022-02-22] MEDS: Melatonin 3 MG TABLET 6 MG PO (23:16)
[2022-02-22 23:51] VITALS: BP 95/53; PULSE 55; RESP 18; TEMP 36.4; O2SAT 94
[2022-02-23 01:17] LABS: Alanine Aminotransferase 27 U/L (0-40); Albumin Level 2.2 g/dL (3.5-5.0); Alkaline Phosphatase 258 U/L (39-117); Anion Gap 14 (12-20); Aspartate Amino Transferase 130 U/L (5-37); Bilirubin Total 4.7 mg/dL (0.0-1.0); Blood Urea Nitrogen 16 mg/dL (9-16); Calcium 7.4 mg/dL (8.4-10.2); Carbon Dioxide 21 mmol/L (22-29); Chloride 110 mmol/L (96-108); Creatinine Clr Calc Pharmacy 59.7; Estimated Glomerular Filt Rate 49; Glucose Random 101 mg/dL (60-115); Potassium 3.2 mmol/L (3.3-5.1); Sodium 142 mmol/L (135-145); Total Protein 6.7 g/dL (6.5-8.0)
[2022-02-23 02:00] VITALS: BP 105/59; PULSE 63; RESP 20; O2SAT 93
[2022-02-23] MEDS: 0.9 % Sodium Chloride 1,000 ML 999 ML IV (02:09)
[2022-02-23] MEDS: Potassium Chloride ER 20 MEQ TAB.ER.PRT PO (02:09)
[2022-02-23 03:50] VITALS: BP 105/62; PULSE 54; RESP 17; TEMP 36.4; O2SAT 92
[2022-02-23 05:12] VITALS: BP 96/55; PULSE 53; RESP 16; TEMP 36.4; O2SAT 92
== END 2022-02-23 07:39 | disposition home or self-care (01) ==
PROVIDERS: Physician Assistant; Emergency Provider Internal Medicine; PCP Internal Medicine
DX: F10.10 Alcohol abuse, uncomplicated (principal); Y90.8 Blood alcohol level of 240 mg/100 ml or more; E87.6 Hypokalemia; N17.9 Acute kidney failure, unspecified; R53.1 Weakness; D50.9 Iron deficiency anemia, unspecified; M79.10 Myalgia, unspecified site; M25.562 Pain in left knee; R25.2 Cramp and spasm; K74.60 Unspecified cirrhosis of liver; Z20.822 Contact with and (suspected) exposure to COVID-19; Z86.711 Personal history of pulmonary embolism; Z79.02 Long term (current) use of antithrombotics/antiplatelets; Z79.899 Other long term (current) drug therapy
CPT/HCPCS: 36415; 70450; 71260; 74177; 80053; 80307; 81001; 82077; 82550; 83735; 85025; 85652; 86140; 87635; 93005; 93971; 96360; 96361; 99285; Q9967

== ENCOUNTER 2022-03-05 17:10 | Inpatient (IN) | payer MEDICAID, SELFPAY ==
--- NOTE | 2022-03-05 | ECG_ITS ---
Test Reason : gi bleed Blood Pressure : / mmHG Vent. Rate : 053 BPM Atrial Rate : 053 BPM P-R Int : 156 ms QRS Dur : 106 ms QT Int : 506 ms P-R-T Axes : 000 007 035 degrees QTc Int : 474 ms Sinus bradycardia Nonspecific ST abnormality Intra-ventricular conduction delay Abnormal ECG When compared with ECG of 22-FEB-2022 16:26, No significant change was found Referred By: Generic ED Physician Electronically Signed By:BEVERLEY SNOWDEN MD
--- NOTE | ~2022-03-05 | US_ITS ---
EXAMINATION: US-GUIDED PARACENTESIS CLINICAL INFORMATION: Ascites COMPARISON: Previous CT of the abdomen and pelvis most recent February 2022 TECHNIQUE: Procedure, risks and benefits including bleeding, infection and low blood pressure were discussed with the patient and informed consent was obtained. The right lower quadrant was prepped and draped in the usual sterile fashion. The skin and soft tissues were anesthetized with 1% lidocaine plain. Using ultrasound guidance and a 5 [place] rapid centesis catheter, access to the ascitic fluid was obtained. 2.6 liters of clear remi-colored fluid was removed. Diagnostic specimen was sent as requested by the ordering position. FINDINGS: There is a moderate amount of ascites. US/US paracentesis abd w/image IMPRESSION: Ultrasound-guided paracentesis.
--- NOTE | ~2022-03-05 | CT_ITS ---
EXAMINATION: CT ABDOMEN AND PELVIS WITHOUT CONTRAST CLINICAL INFORMATION: Abdominal pain and rectal bleeding COMPARISON: CT abdomen and pelvis 02/22/2022 TECHNIQUE: Multidetector volumetric imaging was performed from the superior aspect of the liver through the pubic symphysis. Sagittal and coronal reformatted images were obtained on the technologist's workstation. This CT examination was performed using dose optimization techniques as appropriate, variously including the following: *Automated exposure control *Adjustment of mA and/or kV according to patient size (this includes techniques or standardized protocols for targeted exams where dose is matched to indication/reason for exam; i.e. extremities or head) *Use of iterative reconstruction technique DLP: 563 mGy-cm FINDINGS: LUNG BASES: Small left pleural effusion, increase in size since prior. New trace right pleural effusion. Minimal bibasilar atelectasis. LIVER, GALLBLADDER, AND BILIARY TREE: Diffuse hepatic hypoattenuation, likely steatosis. Findings of cirrhosis with nodular liver surface contour and enlarged left liver lobe. No gross liver lesion-limited assessment. No biliary ductal dilation. Prominently distended gallbladder containing a few small dependent gallstones. Gross gallbladder wall thickening. PANCREAS: Unremarkable. SPLEEN: Unremarkable. ADRENAL GLANDS: Unremarkable. KIDNEYS AND URETERS: The kidneys are normal in size, shape, and attenuation. No hydronephrosis, hydroureter, or calculi seen. No perinephric stranding. BLADDER: Incompletely distended and grossly unremarkable. GASTROINTESTINAL TRACT: Small hiatal hernia. Sigmoid diverticulosis. No evidence of acute diverticulitis. No dilated bowel loops. Thick-walled appearance of the stomach versus limited distention. Slightly thick-walled appearance of the ascending and transverse colon as on prior which may be sequela of portal colopathy. Normal appendix. No intra-abdominal free air. Small volume ascites, increased since prior with diffuse mesenteric edema. ABDOMINAL WALL: Small umbilical hernia containing free fluid. LYMPH NODES: No lymphadenopathy. VASCULAR: Normal caliber abdominal aorta. Mild vascular calcifications. Paraesophageal varices redemonstrated. PELVIC VISCERA: Unremarkable. OSSEOUS STRUCTURES: No acute fracture or suspicious osseous lesion. Possible small focus of left femoral head avascular necrosis anteriorly redemonstrated. No articular surface collapse or fragmentation. CT/CT abdomen pelvis wo IV con IMPRESSION: 1. Sigmoid diverticulosis. No evidence of acute diverticulitis or other acute intra-abdominal process. 2. Findings of hepatic steatosis, cirrhosis and portal hypertension with small volume ascites, increased since prior. 3. Prominently distended gallbladder containing a few small gallstones. No gross gallbladder wall thickening. 4. Small left and trace right pleural effusions. 5. Thick-walled appearance of the stomach, right and transverse colon which may be the sequela of portal gastropathy and colopathy respectively.
--- NOTE | ~2022-03-05 | XR_ITS ---
EXAMINATION: XR CHEST CLINICAL INFORMATION: GI bleed COMPARISON: Chest x-ray 08/09/2021 TECHNIQUE: Frontal view of the chest was obtained. FINDINGS: No airspace consolidation. Small left and trace right pleural effusions are better seen on CT performed the same date. No pneumothorax. Normal cardiomediastinal silhouette and pulmonary vascularity. No evidence pulmonary edema. Chronic displaced left mid shaft clavicle fracture deformity noted. No acute osseous injury identified. XR/XR chest 1V IMPRESSION: 1. Small left and trace right pleural effusions, better seen on CT performed the same date. 2. No airspace consolidation.
[2022-03-05 17:31] VITALS: BP 113/61; PULSE 57; RESP 18; TEMP 36.8; O2SAT 97; BMI 24.4
[2022-03-05 17:53] LABS: MANUAL DIFF FLAG NO
[2022-03-05 17:59] LABS: Basophils Percent Auto 0.4 % (0-2); Eosinophils Absolute Auto 0.1 X10*3/uL (0.0-0.4); Eosinophils Percent Auto 0.9 % (0-4); Hematocrit 21.6 % (42.0-52.0); Hemoglobin 7.5 g/dl (14.0-18.0); Imm Gran Abs Auto 0.02 X10*3/uL (0.00-0.03); Imm Gran Pct Auto 0.4 % (0.0-0.4); Lymphocytes Absolute Auto 0.9 X10*3/uL (1.2-4.9); Lymphocytes Percent Auto 15.3 % (20-40); Mean Corpuscular HGB Conc 34.7 g/dl (31.0-36.0); Mean Corpuscular Hemoglobin 34.1 pg (27.0-33.0); Mean Corpuscular Volume 98.2 fL (80.0-98.0); Monocytes Absolute Auto 0.6 X10*3/uL (0.1-1.2); Monocytes Percent Auto 11.3 % (2-11); Neutrophils Absolute Auto 4.1 x10*3/uL (2.0-8.3); Neutrophils Percent Auto 71.7 % (45-73); Red Cell Distribution Width 17.1 % (11.0-16.0); White Blood Count 5.7 X10*3/uL (4.8-10.8)
[2022-03-05 18:14] LABS: Alanine Aminotransferase 41 U/L (0-40); Albumin Level 2.5 g/dL (3.5-5.0); Alkaline Phosphatase 319 U/L (39-117); Anion Gap 17 (12-20); Aspartate Amino Transferase 204 U/L (5-37); Bilirubin Direct 8.4 mg/dL (0.0-0.5); Bilirubin Total 13.2 mg/dL (0.0-1.0); Blood Urea Nitrogen 19 mg/dL (9-16); Calcium 8.2 mg/dL (8.4-10.2); Carbon Dioxide 17 mmol/L (22-29); Chloride 107 mmol/L (96-108); Creatinine Clr Calc Pharmacy 43.5; Estimated Glomerular Filt Rate 34; Glucose Random 83 mg/dL (60-115); Lipase 96 U/L (8-78); Potassium 3.6 mmol/L (3.3-5.1); Sodium 137 mmol/L (135-145); Total Protein 7.9 g/dL (6.5-8.0)
--- NOTE | 2022-03-05 18:14 | ED_ITS ---
HPI - General Adult General Chief complaint: GI Bleed Stated complaint: weakness in the legs/blood in diarrhea Time Seen by Provider: 03/05/22 18:01 Source: patient Mode of arrival: ambulatory Limitations: no limitations History of Present Illness HPI narrative: 57-year-old male came in for evaluation off bright red blood per rectum since yesterday. Patient with history of alcoholic cirrhosis and esophageal varices, patient still actively drinking alcohol on a daily basis despite warning and previous problem with alcohol patient presented today after having a bloody diarrhea since yesterday, patient stated that the blood is diminishing in the stool now, no nausea, no vomiting, complaining of slight upset stomach and mild abdominal pain. Patient overall feels generalized weakness along with known alcoholic neuropathy causing patient for frequent falls patient stated that he fell multiple times yesterday. Patient also has noticed that he is jaundiced. Patient had previous hospitalization for similar presentation. Patient declined taking any blood thinner. Patient is having tremors and tongue fasciculations with estimated CIWA score of 16. Related Data Home Medications Medication Instructions Recorded Confirmed albuterol sulfate 90 mcg/actuation 2 puff inhalation Q4-6H PRN 05/26/20 03/05/22 aerosol inhaler Shortness Of Breath pantoprazole 40 mg tablet,delayed 40 mg PO DAILY 05/26/20 03/05/22 release atorvastatin 10 mg tablet 1 tab PO DAILY 07/25/21 03/05/22 cyanocobalamin (vitamin B-12) 1,000 mcg PO DAILY 07/25/21 03/05/22 1,000 mcg tablet magnesium oxide 400 mg (241.3 mg 1 tab PO DAILY 07/25/21 03/05/22 magnesium) tablet multivitamin 1 tab PO DAILY 07/25/21 03/05/22 pyridoxine (vitamin B6) 100 mg 100 mg PO DAILY 07/25/21 03/05/22 tablet thiamine HCl (vitamin B1) 100 mg 100 mg PO DAILY 07/25/21 03/05/22 tablet escitalopram oxalate 20 mg tablet 20 mg PO DAILY 03/05/22 03/05/22 folic acid 1 mg tablet 1 mg PO DAILY 03/05/22 03/05/22 levothyroxine 25 mcg tablet 1 tab PO DAILY 03/05/22 03/05/22 nadolol 40 mg tablet 40 mg PO DAILY 03/05/22 03/05/22 vitamin A 2,400 mcg capsule 1 cap PO DAILY 03/05/22 03/05/22 Previous Rx's Medication Instructions Recorded furosemide 40 mg tablet 40 mg PO DAILY #30 tabs 04/13/20 potassium chloride 20 mEq 20 meq PO DAILY #30 tabs 02/23/22 tablet,extended release (K-Tab) Allergies Allergy/AdvReac Type Severity Reaction Status Date / Time No Known Allergies Allergy Verified 02/22/22 15:55 [No Known Allergies*] Review of Systems Review of Systems: All other systems are reviewed and are negative Constitutional: Reports as per HPI and Reports no additional constitutional complaints Eyes: Reports as per HPI and Reports no additional eye complaints Reports system reviewed and no additional complaints, except as documented Cardiovascular: Reports as per HPI and Reports no additional cardiovascular complaints Respiratory: Reports as per HPI and Reports no additional respiratory complaints Gastrointestinal: Reports as per HPI and Reports no additional gastrointestinal complaints Genitourinary: Reports no additional female genitourinary complaints Musculoskeletal: Reports no additional musculoskeletal complaints Skin/Breast: Reports system reviewed and no additional complaints, except as docu Psychiatric: Reports no additional psychiatric complaints Endocrine: Reports no additional endocrine complaints Hematologic/Lymphatic: Reports no additional hematologic/lymphatic complaints Allergic/Immunologic: Reports no additional allergic/immunologic complaints Reports system reviewed and no additional complaints, except as documented and Reports Abnormal speech present [facility] Past Medical History Medical History Asthma Cirrhosis of liver Hx of fall Hx pulmonary embolism Status post abdominal paracentesis Surgical History Hx of colonoscopy Hx of esophagogastroduodenoscopy Hx of right inguinal hernia repair Social History Social History Household Members: Family Household Members Other:: mother Housing: House Do you presently have visiting nurse or other home services: No Alcohol intake: current Alcohol intake frequency: 3 or more drinks per day Alcohol type: wine Patient Tobacco Use Status: Never used Tobacco e-Cigarette/Vaping Use: Never Used Second Hand Smoke Exposure: No Substance Use Type: Marijuana Advance Directives: Yes Advance Directives on File: Yes Advance Directives Date on File: 08/09/21 service: No Current occupational status: employed Physical Exam ED Vital Signs: Vital Signs - 24 hr 03/05/22 17:31 03/05/22 20:12 03/05/22 20:30 Temperature 98.3 F 98.9 F 98.4 F Pulse Rate 57 67 63 Respiratory Rate 18 22 H 21 H Blood Pressure 113/61 122/69 123/62 Pulse Oximetry 97 Oxygen Delivery Method Room Air BMI result Body Mass Index 24.4 Vital signs have been reviewed as appeared to be correct. Blood pressure normal. Heart rate normal. Respiration rate normal. Temperature normal. Oxyg en saturation normal. Appearance: Alert. Oriented X3. No acute distress. Diffuse jaundice Head: Normal external exam. Normocephalic. Atraumatic. No Smith signs noted. No raccoon eyes noted Eyes: Icteric sclera, PERRLA. EOMI. . Eyelids normal. ENT: TM's Normal. Pharynx normal. Uvula midline. Moist mucous membranes. No trismus noted. No drooling noted. No muffled voice noted. Neck: Normal inspection. Neck supple. FROM. No adenopathy. Thyroid Normal. No meningeal signs. No neck mass noted. CVS: Normal heart rate and rhythm. Heart sound normal. No murmurs noted. Pulses normal throughout. Respiratory: No respiratory distress. Painless inspiration. Breath sounds normal. No wheezes/rales/rhonchi noted. Chest nontender. No accessory muscle usage noted or decreased air movement noted. Abdomen: Soft and nontender. Bowel sounds normal in all 4 quadrants. No dis tention noted. No organomegaly noted. No visible injury noted. Rectal exam: Brown stool no blood with trace guaiac positive. Back: No CVA tenderness. Full range of motion noted. Skin: Multiple different ages of ecchymosis on the back and bilateral lower extremities and the torso Extremities: No lower extremity edema. Extremities exhibit normal range of motion. Extremities nontender. Neuro: Diffuse tremor, tongue fasciculation. Cranial nerve exam: II-XII are grossly intact No motor deficit. No sensory deficit. Reflexes normal. Course Course Course Narrative: Came in for evaluation of generalized weakness and fall. Acute alcoholic hepatitis with elevation of LFTs and jaundice continue hydration. GI bleed with improvement patient is anemic will transfuse 1 unit of blood, c onsent is in the chart. Daily use of alcohol with CIWA score of 16 and withdrawal symptoms will start the patient on phenobarb. Mechanical fall no obvious sign of injuries but old ecchymosis different ages on different part of the body. Hypercoagulopathy will give the patient vitamin K. 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 Admit the patient Medical Decision Making Medical Records Medical records reviewed: Yes I reviewed the patient's medical records. Lab Data Lab results reviewed: Yes I reviewed the patient's lab results. Result diagrams: 03/05/22 17:43 03/05/22 17:43 Labs: Lab Results 03/05/22 03/05/22 03/05/22 Range/Units 17:43 17:43 17:43 WBC 5.7 (4.8-10.8) X10*3/uL RBC 2.20 L (4.60-5.80) X10*6/uL Hgb 7.5 L (14.0-18.0) g/dl Hct 21.6 L (42.0-52.0) % MCV 98.2 H (80.0-98.0) fL MCH 34.1 H (27.0-33.0) pg MCHC 34.7 (31.0-36.0) g/dl RDW 17.1 H (11.0-16.0) % Plt Count 40 L D (160-400) X10*3/uL MPV 11.0 (9.4-12.4) fL Immature Gran % (Auto) 0.4 (0.0-0.4) % Neut % (Auto) 71.7 (45-73) % Lymph % (Auto) 15.3 L (20-40) % [place] % (Auto) 11.3 H (2-11) % Eos % (Auto) 0.9 (0-4) % Baso % (Auto) 0.4 (0-2) % Lymph # (Auto) 0.9 L (1.2-4.9) X10*3/uL [place] # (Auto) 0.6 (0.1-1.2) X10*3/uL Eos # (Auto) 0.1 (0.0-0.4) X10*3/uL Baso # (Auto) 0.0 (0.0-0.2) X10*3/uL Abs Immat Gran (auto) 0.02 (0.00-0.03) X10*3/uL Absolute Neuts (auto) 4.1 (2.0-8.3) x10*3/uL Absolute Nucleated RBC 0.000 (0.0-0.012) X10*3/uL Nucleated RBC % (auto) 0.0 (0.0-0.2) /100WBC PT (10.0-13.1) SEC INR (0.9-1.1) APTT (26.0-36.4) SEC Sodium 137 (135-145) mmol/L Potassium 3.6 (3.3-5.1) mmol/L Chloride 107 (96-108) mmol/L Carbon Dioxide 17 L (22-29) mmol/L Anion Gap 17 (12-20) BUN 19 H (9-16) mg/dL Creatinine 2.03 H (0.5-1.4) mg/dL Estim Creat Clear Calc 43.5 Estimated GFR 34 Random Glucose 83 (60-115) mg/dL Calcium 8.2 L D (8.4-10.2) mg/dL Total Bilirubin 13.2 H (0.0-1.0) mg/dL Direct Bilirubin 8.4 H (0.0-0.5) mg/dL AST 204 H (5-37) U/L ALT 41 H (0-40) U/L Alkaline Phosphatase 319 H D (39-117) U/L Troponin I High Sens 12.8 D (<3.5-35.0) ng/L B-Natriuretic Peptide (<100) pg/mL Total Protein 7.9 (6.5-8.0) g/dL Albumin 2.5 L (3.5-5.0) g/dL Lipase 96 H (8-78) U/L Stool Occult Blood (NEGATIVE) COVID-19 (LETICIA) (Negative) COVID-19 Clin Com Blood Type Antibody Screen Crossmatch 03/05/22 03/05/22 03/05/22 Range/Units 18:34 18:34 18:35 WBC (4.8-10.8) X10*3/uL RBC (4.60-5.80) X10*6/uL Hgb (14.0-18.0) g/dl Hct (42.0-52.0) % MCV (80.0-98.0) fL MCH (27.0-33.0) pg MCHC (31.0-36.0) g/dl RDW (11.0-16.0) % Plt Count (160-400) X10*3/uL MPV (9.4-12.4) fL Immature Gran % (Auto) (0.0-0.4) % Neut % (Auto) (45-73) % Lymph % (Auto) (20-40) % [place] % (Auto) (2-11) % Eos % (Auto) (0-4) % Baso % (Auto) (0-2) % Lymph # (Auto) (1.2-4.9) X10*3/uL [place] # (Auto) (0.1-1.2) X10*3/uL Eos # (Auto) (0.0-0.4) X10*3/uL Baso # (Auto) (0.0-0.2) X10*3/uL Abs Immat Gran (auto) (0.00-0.03) X10*3/uL Absolute Neuts (auto) (2.0-8.3) x10*3/uL Absolute Nucleated RBC (0.0-0.012) X10*3/uL Nucleated RBC % (auto) (0.0-0.2) /100WBC PT (10.0-13.1) SEC INR (0.9-1.1) APTT (26.0-36.4) SEC Sodium (135-145) mmol/L Potassium (3.3-5.1) mmol/L Chloride (96-108) mmol/L Carbon Dioxide (22-29) mmol/L Anion Gap (12-20) BUN (9-16) mg/dL Creatinine (0.5-1.4) mg/dL Estim Creat Clear Calc Estimated GFR Random Glucose (60-115) mg/dL Calcium (8.4-10.2) mg/dL Total Bilirubin (0.0-1.0) mg/dL Direct Bilirubin (0.0-0.5) mg/dL AST (5-37) U/L ALT (0-40) U/L Alkaline Phosphatase (39-117) U/L Troponin I High Sens (<3.5-35.0) ng/L B-Natriuretic Peptide 877 H (<100) pg/mL Total Protein (6.5-8.0) g/dL Albumin (3.5-5.0) g/dL Lipase (8-78) U/L Stool Occult Blood (NEGATIVE) COVID-19 ([facility]ICIA) Negative (Negative) COVID-19 Clin Com See Note Blood Type O Positive Antibody Screen NEGATIVE Crossmatch See Detail 03/05/22 03/05/22 Range/Units 18:35 19:45 WBC (4.8-10.8) X10*3/uL RBC (4.60-5.80) X10*6/uL Hgb (14.0-18.0) g/dl Hct (42.0-52.0) % MCV (80.0-98.0) fL MCH (27.0-33.0) pg MCHC (31.0-36.0) g/dl RDW (11.0-16.0) % Plt Count (160-400) X10*3/uL MPV (9.4-12.4) fL Immature Gran % (Auto) (0.0-0.4) % Neut % (Auto) (45-73) % Lymph % (Auto) (20-40) % [place] % (Auto) (2-11) % Eos % (Auto) (0-4) % Baso % (Auto) (0-2) % Lymph # (Auto) (1.2-4.9) X10*3/uL [place] # (Auto) (0.1-1.2) X10*3/uL Eos # (Auto) (0.0-0.4) X10*3/uL Baso # (Auto) (0.0-0.2) X10*3/uL Abs Immat Gran (auto) (0.00-0.03) X10*3/uL Absolute Neuts (auto) (2.0-8.3) x10*3/uL Absolute Nucleated RBC (0.0-0.012) X10*3/uL Nucleated RBC % (auto) (0.0-0.2) /100WBC PT 24.3 H (10.0-13.1) SEC INR 2.1 H (0.9-1.1) APTT 35.5 (26.0-36.4) SEC Sodium (135-145) mmol/L Potassium (3.3-5.1) mmol/L Chloride (96-108) mmol/L Carbon Dioxide (22-29) mmol/L Anion Gap (12-20) BUN (9-16) mg/dL Creatinine (0.5-1.4) mg/dL Estim Creat Clear Calc Estimated GFR Random Glucose (60-115) mg/dL Calcium (8.4-10.2) mg/dL Total Bilirubin (0.0-1.0) mg/dL Direct Bilirubin (0.0-0.5) mg/dL AST (5-37) U/L ALT (0-40) U/L Alkaline Phosphatase (39-117) U/L Troponin I High Sens (<3.5-35.0) ng/L B-Natriuretic Peptide (<100) pg/mL Total Protein (6.5-8.0) g/dL Albumin (3.5-5.0) g/dL Lipase (8-78) U/L Stool Occult Blood POSITIVE (NEGATIVE) COVID-19 ([facility]) (Negative) COVID-19 Clin Com Blood Type Antibody Screen Crossmatch Imaging Data Abdomen and pelvis CT: Attestation: I personally reviewed and interpreted this imaging study as follows: Radiologist's impression: 1.? Sigmoid diverticulosis. No evidence of acute diverticulitis or other acute intra-abdominal process. 2.? Findings of hepatic steatosis, cirrhosis and portal hypertension with small volume ascites, increased since prior. 3.? Prominently distended gallbladder containing a few small gallstones. No gross gallbladder wall thickening. 4.? Small left and trace right pleural effusions. 5.? Thick-walled appearance of the stomach, right and transverse colon which may be the sequela of portal gastropathy and colopathy respectively. ? Chest x-ray: Attestation: I personally reviewed and interpreted this imaging study as follows: Radiologist's impression: 1.? Small left and trace right pleural effusions, better seen on CT performed the same date. 2.? No airspace consolidation. ? Critical Care Time Critical Care Time Critical Care Time: Yes Total Critical Care Time: 60 Attestation: I spent 60 minutes providing critical care service to the patient, this including time spent at the bedside to evaluate the patient, reassess the patient, monitoring vital signs, review labs, and radiographic studies, counseling the patient/family, discussing the case with consultants, disposition the patient. Discharge Plan Discharge Clinical Impression: Cirrhosis of liver, Alcohol abuse, Lower gastrointestinal hemorrhage Patient Disposition: Admitted As Inpatient
[2022-03-05 18:16] LABS: Troponin-I High Sensitivity 12.8 ng/L (<3.5-35.0)
[2022-03-05] MEDS: 0.9 % Sodium Chloride 1,000 ML 999 ML IV (18:31)
[2022-03-05 18:39] LABS: Platelet Count 40 X10*3/uL (160-400)
[2022-03-05 18:42] LABS: OBS Int Ctl Valid YES; OBS1 POSITIVE (NEGATIVE)
[2022-03-05 18:59] LABS: B Type Natriuretic Peptide 877 pg/mL (<100)
[2022-03-05 19:01] LABS: COVID-19 Test Negative (Negative); IDNOW Serial# 55D5AD1C
--- NOTE | 2022-03-05 19:44 | PHA.MEDREC ---
MED REC COMPLETE, NO ISSUES Pharmacy Consult ? Medication Reconciliation Pharmacy has completed the medication reconciliation.
[2022-03-05 19:59] LABS: INTERNATIONAL NORM RATIO 2.1 (0.9-1.1); Prothrombin Time 24.3 SEC (10.0-13.1)
[2022-03-05 20:01] LABS: Partial Thromboplastin Time 35.5 SEC (26.0-36.4)
[2022-03-05 20:12] VITALS: BP 122/69; PULSE 67; RESP 22; TEMP 37.2
[2022-03-05 20:30] VITALS: BP 123/62; PULSE 63; RESP 21; TEMP 36.9
[2022-03-05 20:31] VITALS: BP 108/64; PULSE 58; RESP 20; TEMP 36.7
[2022-03-05] MEDS: PHENobarbitaL sodium 130 MG/ML IM ONCE 310 MG IM (21:50)
[2022-03-05] MEDS: Phytonadione (Vit K1) Oral 10 MG/ML AMPUL PO (21:50)
--- NOTE | 2022-03-05 22:31 | PM.IMHP ---
History of Present Illness Date of Service: 03/05/22 Chief Complaint: diarrhea 49-year-old male with past medical history of liver cirrhosis, history of pulmonary embolism, asthma, presents to the hospital with complaints of diarrhea will start Guerline blood in the diarrhea that started yesterday. He reports that he has had diarrhea for 5 days, and then yesterday noticed blood. He does have history of EGD showing esophageal varices, but reports no hemoptysis or hematemesis. Patient otherwise denies any chest pain, no abdominal pain, no urinary symptoms and no lower extremity edema. No numbness or weakness or tingling, patient also reports that he notices skin changes turning yellow since yesterday. Denies any confusion, and no changes in his mentation. On arrival to the ED patient hemodynamically stable with no significant abnormalities Labs are significant for hemoglobin of 7.5 the dropped from 8.5 on 02/22, with a baseline of 10.1 in October, hematocrit 21.6, MCV of 98.2, potassium of 3.6, total bilirubin of 13.2, direct 8.4, AST of 2 4, ALT of 41, alk-phos of 319, BNP of 877, lipase of 96, COVID-19 negative, stool occult blood positive Patient started on octreotide, pantoprazole, and will be admitted for further management Review of Systems Review of Systems: Yes all other systems are reviewed and are negative [facility] Medical History Asthma Cirrhosis of liver Hx of fall Hx pulmonary embolism Status post abdominal paracentesis Family History (Updated 03/06/22 @ 06:53 by Rangel Stpales MD) Other No family history of coronary artery disease Surgical History Hx of colonoscopy Hx of esophagogastroduodenoscopy Hx of right inguinal hernia repair Social History Household Members: Family Household Members Other:: mother Housing: House Do you presently have visiting nurse or other home services: No Alcohol intake: current Alcohol intake frequency: 3 or more drinks per day Alcohol type: wine Patient Tobacco Use Status: Never used Tobacco e-Cigarette/Vaping Use: Never Used Second Hand Smoke Exposure: No Use of substances other than those prescribed or required for medical reasons: Unknown Substance Use Type: Marijuana Advance Directives: Yes Advance Directives on File: Yes Advance Directives Date on File: 08/09/21 service: No Current occupational status: employed Meds Allergies Allergy/AdvReac Type Severity Reaction Status Date / Time No Known Allergies Allergy Verified 02/22/22 15:55 [No Known Allergies*] Active Medications: Current Medications Pharmacy Consult (Consult Rx Perform Med Rec) 1 each MISCELLANE ONCE PRN PRN Reason: Consult order Pharmacy Consult (Consult Rx Etoh Phenob Im/Po) 1 each MISCELLANE ONCE PRN; Protocol PRN Reason: Consult order Phenobarbital (Phenobarbital 30 Mg Tablet) 60 mg PO BID EVONNE Stop: 03/07/22 21:01 Phenobarbital (Phenobarbital 30 Mg Tablet) 30 mg PO BID EVONNE Stop: 03/09/22 21:01 Phenobarbital (Phenobarbital 30 Mg Tablet) 30 mg PO DAILY EVONNE Stop: 03/11/22 09:01 Phenobarbital Sodium (Phenobarbital Sodium 130 Mg/Ml Vial Im Q3hx2) 232 mg IM Q3H EVONNE Stop: 03/06/22 03:01 Home Medications Medication Instructions Recorded Confirmed Last Taken Type albuterol sulfate 90 mcg/actuation 2 puff inhalation Q4-6H PRN 05/26/20 03/05/22 Unknown History aerosol inhaler Shortness Of Breath pantoprazole 40 mg tablet,delayed 40 mg PO DAILY 05/26/20 03/05/22 03/04/22 History release atorvastatin 10 mg tablet 1 tab PO DAILY 07/25/21 03/05/22 03/04/22 History cyanocobalamin (vitamin B-12) 1,000 mcg PO DAILY 07/25/21 03/05/22 03/04/22 History 1,000 mcg tablet magnesium oxide 400 mg (241.3 mg 1 tab PO DAILY 07/25/21 03/05/22 03/04/22 History magnesium) tablet multivitamin 1 tab PO DAILY 07/25/21 03/05/22 03/04/22 History pyridoxine (vitamin B6) 100 mg 100 mg PO DAILY 07/25/21 03/05/22 03/04/22 History tablet thiamine HCl (vitamin B1) 100 mg 100 mg PO DAILY 07/25/21 03/05/22 03/04/22 History tablet escitalopram oxalate 20 mg tablet 20 mg PO DAILY 03/05/22 03/05/22 03/04/22 History folic acid 1 mg tablet 1 mg PO DAILY 03/05/22 03/05/22 03/04/22 History levothyroxine 25 mcg tablet 1 tab PO DAILY 03/05/22 03/05/22 03/04/22 History nadolol 40 mg tablet 40 mg PO DAILY 03/05/22 03/05/22 03/04/22 History vitamin A 2,400 mcg capsule 1 cap PO DAILY 03/05/22 03/05/22 03/04/22 History Physical Exam Vital Signs and Narrative: Vital Signs: Last Vital Signs Temp 98.4 F 03/05/22 20:30 Pulse 63 03/05/22 20:30 Resp 21 H 03/05/22 20:30 BP 123/62 03/05/22 20:30 Pulse Ox 97 03/05/22 17:31 O2 Del Method 03/05/22 17:31 BMI result Body Mass Index 24.4 Const: General: cooperative and no acute distress Orientation/consciousness: patient oriented x3 Eyes: General: appearance normal, both eyes and all related structures Resp: Effort & Inspection: normal respiratory effort Auscultation: clear to auscultation bilaterally Cardio: Rate: regular rate Rhythm: regular rhythm GI: Palpation (GI): Soft to palpation Auscultation: normal bowel sounds Skin: Other: Jaundiced Neuro: General: patient oriented x3 Cognition (Neuro): normal cognition Extrem: General: Yes normal to inspection and Yes no pedal edema Results Labs CBC and Chem 7: 03/05/22 17:43 03/05/22 17:43 Labs: Laboratory Results - last 24 hr 03/05/22 03/05/22 03/05/22 17:43 17:43 17:43 MCV 98.2 H MCH 34.1 H MCHC 34.7 RDW 17.1 H Plt Count 40 L D MPV 11.0 Immature Gran % (Auto) 0.4 Neut % (Auto) 71.7 Lymph % (Auto) 15.3 L [place] % (Auto) 11.3 H Eos % (Auto) 0.9 Baso % (Auto) 0.4 Lymph # (Auto) 0.9 L [place] # (Auto) 0.6 Eos # (Auto) 0.1 Baso # (Auto) 0.0 Abs Immat Gran (auto) 0.02 Absolute Neuts (auto) 4.1 Absolute Nucleated RBC 0.000 Nucleated RBC % (auto) 0.0 PT INR APTT Anion Gap 17 Estim Creat Clear Calc 43.5 Estimated GFR 34 Random Glucose 83 Calcium 8.2 L D Total Bilirubin 13.2 H Direct Bilirubin 8.4 H AST 204 H ALT 41 H Alkaline Phosphatase 319 H D Troponin I High Sens 12.8 D B-Natriuretic Peptide Total Protein 7.9 Albumin 2.5 L Lipase 96 H Stool Occult Blood COVID-19 (LETICIA) COVID-[employer] Com Blood Type Antibody Screen Crossmatch 03/05/22 03/05/22 03/05/22 18:34 18:34 18:35 MCV MCH MCHC RDW Plt Count MPV Immature Gran % (Auto) Neut % (Auto) Lymph % (Auto) [place] % (Auto) Eos % (Auto) Baso % (Auto) Lymph # (Auto) [place] # (Auto) Eos # (Auto) Baso # (Auto) Abs Immat Gran (auto) Absolute Neuts (auto) Absolute Nucleated RBC Nucleated RBC % (auto) PT INR APTT Anion Gap Estim Creat Clear Calc Estimated GFR Random Glucose Calcium Total Bilirubin Direct Bilirubin AST ALT Alkaline Phosphatase Troponin I High Sens B-Natriuretic Peptide 877 H Total Protein Albumin Lipase Stool Occult Blood COVID-19 (LETICIA) Negative [employer] See Note Blood Type O Positive Antibody Screen NEGATIVE Crossmatch See Detail 03/05/22 03/05/22 18:35 19:45 MCV MCH MCHC RDW Plt Count MPV Immature Gran % (Auto) Neut % (Auto) Lymph % (Auto) [place] % (Auto) Eos % (Auto) Baso % (Auto) Lymph # (Auto) [place] # (Auto) Eos # (Auto) Baso # (Auto) Abs Immat Gran (auto) Absolute Neuts (auto) Absolute Nucleated RBC Nucleated RBC % (auto) PT 24.3 H INR 2.1 H APTT 35.5 Anion Gap Estim Creat Clear Calc Estimated GFR Random Glucose Calcium Total Bilirubin Direct Bilirubin AST ALT Alkaline Phosphatase Troponin I High Sens B-Natriuretic Peptide Total Protein Albumin Lipase Stool Occult Blood POSITIVE COVID-19 (LETICIA) COVID-[employer] Com Blood Type Antibody Screen Crossmatch Imaging Radiologist's Impressions: Impressions Abdomen/Pelvis CT 03/05/22 18:23 IMPRESSION: 1. Sigmoid diverticulosis. No evidence of acute diverticulitis or other acute intra-abdominal process. 2. Findings of hepatic steatosis, cirrhosis and portal hypertension with small volume ascites, increased since prior. 3. Prominently distended gallbladder containing a few small gallstones. No gross gallbladder wall thickening. 4. Small left and trace right pleural effusions. 5. Thick-walled appearance of the stomach, right and transverse colon which may be the sequela of portal gastropathy and colopathy respectively. Chest X-Ray 03/05/22 18:45 IMPRESSION: 1. Small left and trace right pleural effusions, better seen on CT performed the same date. 2. No airspace consolidation. Assessment and Plan (1) Bloody diarrhea: Status: Acute (2) Lower gastrointestinal hemorrhage: Status: Acute (3) Hyperbilirubinemia: Status: Acute (4) Cirrhosis of liver: Status: Acute (5) Esophageal varices: Status: Acute (6) Alcohol abuse: Status: Acute (7) Jaundice: Status: Acute (8) Elevated brain natriuretic peptide (BNP) level: Status: Acute Plan This is a 57-year-old male with past medical history of liver cirrhosis secondary to alcohol abuse presents to the hospital with complaints of bloody diarrhea # diarrhea - unclear etiology at this time, will obtain C diff to rule out bacterial infection - will obtain GI panel - IV fluids # bloody diarrhea, GI bleed - unclear source, patient does have history of esophageal varices - will treat with octreotide, pantoprazole - GI consulted - patient being transferred 1 unit of PRBC - follow CBC, keep NPO # acute on chronic anemia - macrocytic - likely worse due to GI bleed - receiving 1 unit of PRBC - follow CBC # hyperbilirubinemia/jaundice - in the setting of liver cirrhosis - no change in mentation - has significant jaundice - GI consulted # alcohol abuse - started on phenpbarb by ED - reports continous drinking last drink day prior - supplement with thiamine and folic acid once patient able to take p.o. # elevated BNP - patient does not plan of any shortness of breath, does not appear to be in volume overload - will give 1 dose of IV Lasix, continue home Lasix, will obtain echocardiogram - low-sodium diet once patient able to eat DVT prophylaxis: SCDs Pt will require a minimum 2 night hospital stay for management of GI bleed Quality Stroke Does the patient have a stroke diagnosis?: No VTE Prior VTE?: No VTE Risk Level:: Medical - moderate - high VTE Device Contraindication: N/A - Device Ordered VTE Drug Contraindication: Treatment Not Indicated
[2022-03-05] MEDS: Octreotide Acetate 100 MCG/ML AMPUL IVPUSH (22:49)
[2022-03-06] VITALS (17 sets, daily range): BP systolic 102–131; BP diastolic 57–74; PULSE 51–66; RESP 14–18; TEMP 35.9–36.9; O2SAT 93–97
[2022-03-06] MEDS: Lactated Ringers 1,000 ML 100 ML IVCONT ×2 (00:03→11:12)
[2022-03-06] MEDS: PHENobarbitaL sodium 130 MG/ML VIAL IM Q3Hx2 232 MG IM ×2 (00:03→04:01)
[2022-03-06] MEDS: Octreotide Acetate 500 MCG in 0.9 % Sodium Chloride 500 ML 50.1 MCG IVCONT ×2 (00:03→11:06)
[2022-03-06] MEDS: Pantoprazole Sodium 40 MG/10 ML VIAL IVPUSH ×2 (02:17→18:33)
[2022-03-06 06:51] LABS: MANUAL DIFF FLAG NO
--- NOTE | 2022-03-06 07:00 | CA_ITS ---
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 The visually estimated ejection fraction is between 55-60%. - Mildly increased right ventricular cavity size. There is normal right ventricular systolic function. Findings Left Ventricle Normal left ventricular size, thickness, systolic function, and wall motion. The visually estimated ejection fraction is between 55-60%. Diastolic function is normal for age. Right Ventricle Mildly increased right ventricular cavity size. There is normal right ventricular systolic function. Atria The left atrium is severely dilated. The right atrium is mildly dilated. Aortic Valve Normal aortic valve structure and function. There is no aortic valve stenosis. There is no aortic valve regurgitation. Mitral Valve Normal mitral valve structure and function. There is no mitral valve regurgitation. There is no mitral valve stenosis. Pulmonic Valve Normal pulmonic valve structure and function. There is trace pulmonic valve regurgitation. Tricuspid Valve Normal tricuspid valve structure and function. There is no tricuspid valve regurgitation. Normal right atrial pressure. There is no evidence of pulmonary hypertension. Great Vessels There is mild dilatation of the sinuses of Valsalva measuring 3.83 cm and mild dilatation of the ascending aorta measuring 3.60 cm. The visualized portions of the pulmonary artery and branches are normal. Venous The inferior vena cava is normal in size and collapses greater than 50% with inspiration. Pericardium/Pleural There is no evidence of pericardial effusion. Prior Study Comparison Changes noted compared to prior study. RV function has recovered. Mild aortic dilation. Measurements 2D Linear Measurements IVSd: 1.03 0.6-0.9/0.6-1.0 cm LVIDd: 5.68 3.9-5.3/4.2-5.9 cm LVIDd Index: 2.78 2.4-3.2/2.2-3.1 cm/m2 LVIDs: 3.76 2.0-3.6 cm LVPWd: 1.08 0.7-1.1 cm LA Diam: 4.20 2.7-3.8/3.0-4.0 cm LAIDs Index: 2.06 1.5-2.3 cm/m2 LV Mass: 301.06 67-162/88-224 g LV Mass Index: 147.58 43-95/49-115 g/m2 LVOT Diam: 2.30 3.0+(-)1.3 cm 2D Systolic Function EF 4C: 59.00 >55% EF 2C: 61.20 >55% EF BiP: 59.10 >55% Mitral Valve MV Pk E: 1.12 MV PK A: 0.56 MV Decel Time: 194.00 E/A: 2.00 E'Lateral: 13.50 E'Medial: 7.72 E/E' Med: 14.50 E/E' Lat: 8.30 PHT: 57.00 MVA PHT: 3.86 Decel Gila: 5.76 Aortic Valve AoV Pk Sabino: 1.68 AoV Mn Sabino: 1.14 AoV VTI: 0.46 AoV Pk Grad: 11.00 Aov Mn Grad: 6.00 CARLOS Cont.VTI: 3.24 LVOT LVOT Pk Sabino: 1.34 LVOT Mn Sabino: 0.84 LVOT VTI: 0.36 LVOT Pk Grad: 7.00 LVOT Mn Grad: 3.00 LVOT Diam: 2.30 LVOT Area: 4.15 Diastolic Function MV Pk E: 1.12 MV Pk A: 0.56 E/A: 2.00 E'Medial: 7.72 E/E' Med: 14.50 E' Laterial: 13.50 E/E' Lat: 8.30 Right Ventricle TAPSE (mm): 23.00 TVS' Sabino: 13.00 Tricuspid Valve TR Pk Sabino: 2.25 TR Pk Grad: 20.00 RA Press: 8.00 RVSP: 28.00 Great Vessels Aorta Sinus of Valsalva: 3.83 2.0-3.[address] [place]: 2.47 1.7-3.4 cm Ao Asc: 3.60 2.1-3.4 cm Updated in Other Vendor System with Status of Final Cleveland Hunter MD electronically signed on 03/06/2022 7:48:36 PM with status of Final
[2022-03-06 07:06] LABS: Basophils Percent Auto 0.2 % (0-2); Eosinophils Absolute Auto 0.1 X10*3/uL (0.0-0.4); Eosinophils Percent Auto 1.8 % (0-4); Hemoglobin 7.2 g/dl (14.0-18.0); Imm Gran Abs Auto 0.01 X10*3/uL (0.00-0.03); Imm Gran Pct Auto 0.2 % (0.0-0.4); Lymphocytes Absolute Auto 0.8 X10*3/uL (1.2-4.9); Lymphocytes Percent Auto 18.9 % (20-40); Mean Corpuscular HGB Conc 35.5 g/dl (31.0-36.0); Mean Corpuscular Hemoglobin 34.4 pg (27.0-33.0); Mean Corpuscular Volume 97.1 fL (80.0-98.0); Mean Platelet Volume 11.3 fL (9.4-12.4); Monocytes Absolute Auto 0.6 X10*3/uL (0.1-1.2); Monocytes Percent Auto 12.9 % (2-11); Neutrophils Absolute Auto 2.9 x10*3/uL (2.0-8.3); Red Blood Count 2.09 X10*6/uL (4.60-5.80); Red Cell Distribution Width 17.2 % (11.0-16.0); White Blood Count 4.4 X10*3/uL (4.8-10.8)
[2022-03-06 07:12] LABS: Hematocrit 20.3 % (42.0-52.0); Platelet Count 28 X10*3/uL (160-400)
[2022-03-06] MEDS: Levothyroxine Sodium 25 MCG TABLET PO (07:24)
[2022-03-06] MEDS: Furosemide 40 MG/4 ML VIAL IVPUSH (07:24)
[2022-03-06 07:26] LABS: Appearance Urine Hazy; Color Urine DK YELLOW; Glucose Urine UA Negative (Negative); Leukocyte Esterase Urine Negative (Negative); Nitrite Urine Negative (Negative); UMIC TRIGGER UACC YES; Urine Blood Trace (Negative); Urine Ketones 15 mg/dL (Negative); Urine Protein 30 (1+) mg/dL (Neg-Trace)
[2022-03-06 07:26] LABS: Anion Gap 15 (12-20); Blood Urea Nitrogen 18 mg/dL (9-16); Carbon Dioxide 17 mmol/L (22-29); Chloride 108 mmol/L (96-108); Creatinine Clr Calc Pharmacy 46.7; Estimated Glomerular Filt Rate 37; Glucose Random 101 mg/dL (60-115); Potassium 3.4 mmol/L (3.3-5.1); Sodium 137 mmol/L (135-145)
[2022-03-06 07:32] LABS: Bacteria Urine None Seen (None Seen); Hyaline Casts Urine 0-2 /LPF (0-2); RBC Urine 0-2 /HPF (0-2); Squamous Epithelial Cell Urine 0-2 /HPF (0-2); WBC Urine 0-5 /HPF (0-5)
[2022-03-06 07:36] LABS: Calcium 7.8 mg/dL (8.4-10.2)
--- NOTE | 2022-03-06 07:39 | PC.NURSE ---
pt's alert and oriented x 4. skin jaundice, warm to the touch. says he is cold, temp 98.3. gave him another warm blanket. He says he is very tired. He drinks 4 glasses of wine daily, drank last on Saturday. He scores a 9 on the CIWA. He has hand tremors, denies auditory and visual hallucinations. He does complain of a headache of 8/10 and all 4 extremities pain of 5/10. resting comfortably.
--- NOTE | 2022-03-06 09:18 | PC.NURSE ---
pt is a/o x 4 no sob/ashwini noted skin pink warm dry speaks in full sentences. lungs -john upper lobes slightly diminished, john lower lobes - cta. heart sounds regular. abd soft and non-tender, bs + x 4 quads. pt aware of plan care.
--- NOTE | 2022-03-06 10:50 | PC.NURSE ---
echocardiam at bedside.
--- NOTE | 2022-03-06 11:00 | PC.NURSE ---
pt is a/o 4 no sob/ashwini noted lungs john upper lobes -cta, john lower lobes - diminished. pt speaks in full sentences. heart sound regular. abd soft, distended,, bx + x 4 quads. pt is jaundice. pt is aware of plan of care. no edema noted.
[2022-03-06] MEDS: Cyanocobalamin (Vitamin B-12) 1,000 MCG TABLET 1000 MCG PO (11:02)
[2022-03-06] MEDS: Thiamine HCL 100 MG TABLET PO (11:02)
[2022-03-06] MEDS: Potassium Chloride ER 20 MEQ TAB.ER.PRT PO (11:02)
[2022-03-06] MEDS: Pyridoxine HCl (Vitamin B6) 50 MG TABLET 100 MG PO (11:02)
[2022-03-06] MEDS: Atorvastatin Calcium 10 MG TABLET PO (11:02)
[2022-03-06] MEDS: PHENobarbitaL 30 MG TABLET 60 MG PO ×2 (11:03→20:42)
[2022-03-06] MEDS: Escitalopram Oxalate 20 MG TABLET PO (11:03)
[2022-03-06] MEDS: Magnesium Oxide 400 MG TABLET PO (11:03)
[2022-03-06] MEDS: Multivitamin TABLET 1 TAB PO (11:04)
--- NOTE | 2022-03-06 11:04 | P.PNIM_ITS ---
Subjective Subjective Date of Service: 03/06/22 Interval History: cc: diarrhea, blood in stool interval history:no further blood in stool Cardiovascular Cardiovascular: Reports no additional cardiovascular complaints Respiratory Respiratory: Reports no additional respiratory complaints Physical Exam Vital Signs: Vital Signs: Last Vital Signs Temp 98.3 F 03/06/22 07:29 Pulse 61 03/06/22 07:29 Resp 18 03/06/22 07:29 BP 110/59 L 03/06/22 07:29 Pulse Ox 97 03/06/22 07:29 O2 Del Method 03/06/22 07:29 BMI result Body Mass Index 24.4 General: AO X 3, no acute distress, jaundiced Resp: CTA bilateral, no accessory muscles used CVS: S1,S2,RRR GI: soft, non tender, non distended Neuro: motor grossly intact, alert Psych: appropriate affect, appropriate insight Objective Data Active Medications Albuterol Sulfate (Albuterol Sulfate 90 Mcg 8 Gm Inhaler) 2 puff INHALE Q4H PRN PRN Reason: Shortness Of Breath Atorvastatin Calcium (Atorvastatin Calcium 10 Mg Tablet) 10 mg PO DAILY [facility] Cyanocobalamin (Cyanocobalamin (Vitamin B-12) 1,000 Mcg Tablet) 1,000 mcg PO DAILY [facility] Docusate Sodium (Docusate Sodium 100 Mg Capsule) 100 mg PO DAILY PRN PRN Reason: Constipation Escitalopram Oxalate (Escitalopram Oxalate 20 Mg Tablet) 20 mg PO DAILY [facility] Folic Acid (Folic Acid 1 Mg Tablet) 1 mg PO DAILY [facility] Octreotide Acetate 500 mcg/ (Sodium Chloride) 501 mls @ 50.1 mls/hr IVCONT .Q10H [facility] Last Admin: 03/06/22 00:03 Dose: 50 mcg/hr, 50.1 mls/hr Documented By: RAJEEV Lactated Ringer's (Lr) 1,000 mls @ 100 mls/hr IVCONT .Q10H [facility] Last Admin: 03/06/22 00:03 Dose: 100 mls/hr Documented By: RAJEEV Levothyroxine Sodium (Levothyroxine Sodium 25 Mcg Tablet) 25 mcg PO DAILY@0600 [facility] Last Admin: 03/06/22 07:24 Dose: 25 mcg Documented By: RANDI Magnesium Oxide (Magnesium Oxide 400 Mg Tablet) 400 mg PO DAILY [facility] Multivitamins/Vitamin C (Multivitamin Tablet) 1 tab PO DAILY [facility] Nadolol (Nadolol 40 Mg Tablet) 40 mg PO DAILY [facility]; Protocol Ondansetron HCl (Ondansetron Hcl 4 Mg/2 Ml Vial) 4 mg IVPUSH Q8H PRN PRN Reason: Nausea and Vomiting Pantoprazole Sodium (Pantoprazole Sodium 40 Mg/10 Ml Vial) 40 mg IVPUSH BID@0630,1630 [facility] Last Admin: 03/06/22 02:17 Dose: 40 mg Documented By: RAJEEV Pharmacy Consult (Consult Rx Perform Med Rec) 1 each MISCELLANE ONCE PRN PRN Reason: Consult order Pharmacy Consult (Consult Rx Etoh Phenob Im/Po) 1 each MISCELLANE ONCE PRN; Protocol PRN Reason: Consult order Phenobarbital (Phenobarbital 30 Mg Tablet) 60 mg PO BID [facility] Stop: 03/07/22 21:01 Phenobarbital (Phenobarbital 30 Mg Tablet) 30 mg PO BID [facility] Stop: 03/09/22 21:01 Phenobarbital (Phenobarbital 30 Mg Tablet) 30 mg PO DAILY [facility] Stop: 03/11/22 09:01 Potassium Chloride (Potassium Chloride Er 20 Meq Tab.Er.Prt) 20 meq PO DAILY [facility] Pyridoxine HCl (Pyridoxine Hcl (Vitamin B6) 50 Mg Tablet) 100 mg PO DAILY [facility] Sodium Chloride (0.9 % Sodium Chloride Flush 3 Ml Syringe) 3 ml IVFLUSH QSHIFT [facility] Last Admin: 03/06/22 00:19 Dose: Not Given Documented By: RAJEEV Non-Admin Reason: IV Running Thiamine HCl (Thiamine Hcl 100 Mg Tablet) 100 mg PO DAILY [facility] Labs CBC & Chem 7: 03/06/22 06:42 03/06/22 06:42 Labs: Laboratory Results - last 24 hr 03/05/22 03/05/22 03/05/22 17:43 17:43 17:43 MCV 98.2 H MCH 34.1 H MCHC 34.7 RDW 17.1 H Plt Count 40 L D MPV 11.0 Immature Gran % (Auto) 0.4 Neut % (Auto) 71.7 Lymph % (Auto) 15.3 L [place] % (Auto) 11.3 H Eos % (Auto) 0.9 Baso % (Auto) 0.4 Lymph # (Auto) 0.9 L [place] # (Auto) 0.6 Eos # (Auto) 0.1 Baso # (Auto) 0.0 Abs Immat Gran (auto) 0.02 Absolute Neuts (auto) 4.1 Absolute Nucleated RBC 0.000 Nucleated RBC % (auto) 0.0 PT INR APTT Anion Gap 17 Estim Creat Clear Calc 43.5 Estimated GFR 34 Random Glucose 83 Calcium 8.2 L D Total Bilirubin 13.2 H Direct Bilirubin 8.4 H AST 204 H ALT 41 H Alkaline Phosphatase 319 H D Troponin I High Sens 12.8 D B-Natriuretic Peptide Total Protein 7.9 Albumin 2.5 L Lipase 96 H Urine Color Urine Appearance Urine pH Ur Specific [place] Urine Protein Urine Glucose (UA) Urine Ketones Urine Blood Urine Nitrite Ur Leukocyte Esterase Urine RBC Urine WBC Ur Squamous Epith Cells Urine Bacteria Hyaline Casts Stool Occult Blood COVID-19 (LETICIA) COVID-19 Clin Com Blood Type Antibody Screen Crossmatch 03/05/22 03/05/22 03/05/22 18:34 18:34 18:35 MCV MCH MCHC RDW Plt Count MPV Immature Gran % (Auto) Neut % (Auto) Lymph % (Auto) [place] % (Auto) Eos % (Auto) Baso % (Auto) Lymph # (Auto) [place] # (Auto) Eos # (Auto) Baso # (Auto) Abs Immat Gran (auto) Absolute Neuts (auto) Absolute Nucleated RBC Nucleated RBC % (auto) PT INR APTT Anion Gap Estim Creat Clear Calc Estimated GFR Random Glucose Calcium Total Bilirubin Direct Bilirubin AST ALT Alkaline Phosphatase Troponin I High Sens B-Natriuretic Peptide 877 H Total Protein Albumin Lipase Urine Color Urine Appearance Urine pH Ur Specific [place] Urine Protein Urine Glucose (UA) Urine Ketones Urine Blood Urine Nitrite Ur Leukocyte Esterase Urine RBC Urine WBC Ur Squamous Epith Cells Urine Bacteria Hyaline Casts Stool Occult Blood COVID-19 (LETICIA) Negative COVID-19 [employer] Com See Note Blood Type O Positive Antibody Screen NEGATIVE Crossmatch See Detail 03/05/22 03/05/22 03/06/22 18:35 19:45 06:42 MCV 97.1 MCH 34.4 H MCHC 35.5 RDW 17.2 H Plt Count 28 L D MPV 11.3 Immature Gran % (Auto) 0.2 Neut % (Auto) 66.0 Lymph % (Auto) 18.9 L [place] % (Auto) 12.9 H Eos % (Auto) 1.8 Baso % (Auto) 0.2 Lymph # (Auto) 0.8 L [place] # (Auto) 0.6 Eos # (Auto) 0.1 Baso # (Auto) 0.0 Abs Immat Gran (auto) 0.01 Absolute Neuts (auto) 2.9 Absolute Nucleated RBC 0.000 Nucleated RBC % (auto) 0.0 PT 24.3 H INR 2.1 H APTT 35.5 Anion Gap Estim Creat Clear Calc Estimated GFR Random Glucose Calcium Total Bilirubin Direct Bilirubin AST ALT Alkaline Phosphatase Troponin I High Sens B-Natriuretic Peptide Total Protein Albumin Lipase Urine Color Urine Appearance Urine pH Ur Specific [place] Urine Protein Urine Glucose (UA) Urine Ketones Urine Blood Urine Nitrite Ur Leukocyte Esterase Urine RBC Urine WBC Ur Squamous Epith Cells Urine Bacteria Hyaline Casts Stool Occult Blood POSITIVE COVID-19 (LETICIA) [email or web address] Blood Type Antibody Screen Crossmatch 03/06/22 03/06/22 06:42 07:12 MCV MCH MCHC RDW Plt Count MPV Immature Gran % (Auto) Neut % (Auto) Lymph % (Auto) [place] % (Auto) Eos % (Auto) Baso % (Auto) Lymph # (Auto) [place] # (Auto) Eos # (Auto) Baso # (Auto) Abs Immat Gran (auto) Absolute Neuts (auto) Absolute Nucleated RBC Nucleated RBC % (auto) PT INR APTT Anion Gap 15 Estim Creat Clear Calc 46.7 Estimated GFR 37 Random Glucose 101 Calcium 7.8 L Total Bilirubin Direct Bilirubin AST ALT Alkaline Phosphatase Troponin I High Sens B-Natriuretic Peptide Total Protein Albumin Lipase Urine Color DK YELLOW Urine Appearance Hazy Urine pH 6.0 Ur Specific [place] 1.020 Urine Protein 30 (1+) H Urine Glucose (UA) Negative Urine Ketones 15 Urine Blood Trace Urine Nitrite Negative Ur Leukocyte Esterase Negative Urine RBC 0-2 Urine WBC 0-5 Ur Squamous Epith Cells 0-2 Urine Bacteria None Seen Hyaline Casts 0-2 Stool Occult Blood COVID-19 (LETICIA) COVID-19 [employer] Blood Type Antibody Screen Crossmatch Assessment and Plan (1) Elevated brain natriuretic peptide (BNP) level: Status: Acute Plan 57M with pmh alcohol dependence with cirrhosis presented with diarrhea and blood in stool acute blood loss anemia due to gi bleed in patient with alcohol cirrhosis octreotide, ppi, monitor cbc, gi eval received 1 unit prb, hgb stayed about the same 7.5 down to 7.2 alcohol dependence with withdrawal phenobarb, ciwa alcohol cirrhosis with pancytopenia and acute alcoholic hepatitis monitor cbc, cmp follow up gi hypothyroid synthroid narayan hydration, hold lasix monitor dvt prophylaxis - mechanical due to gi bleed and thrombocytopenia full code reason for continued hospitalization: ongoing bleeding, worsening bili, inr Quality Stroke Does the patient have a stroke diagnosis?: No VTE Prior VTE?: No VTE Risk Level:: Medical - moderate - high VTE Device Contraindication: N/A - Device Ordered VTE Drug Contraindication: Treatment Not Indicated
[2022-03-06] MEDS: Folic Acid 1 MG TABLET PO (11:05)
[2022-03-06] MEDS: 0.9 % Sodium Chloride Flush 3 ML SYRINGE IVFLUSH ×2 (11:06→16:39)
--- NOTE | 2022-03-06 11:14 | MHC.CM.PN ---
Patient lives in a house with his Mother and he uses a cane to assist with mobility. Home self care is the goal and CM has initiated and will follow for dc planning. Patient has received Pfizer/CovLailaihui vax X3 and his PCP is Dr. Fernando Martin.
--- NOTE | 2022-03-06 14:04 | PC.NURSE ---
DR. SUMMERS AT BEDSIDE PT AWARE OF PLAN OF CARE.
--- NOTE | 2022-03-06 15:03 | PM.EVENT ---
Event Note Date of Service: 03/06/22 Event Note: GI Consult dictated alcoholic hepatitis with continued alcohol abuse, nonbleeding varices, ascites and hepatic encephalopathy rectal bleeding, none currently, exacerbated by low plts and elevated inr. rec: transfuse vit k iv rifamaxin (already has diarrhea so lactulose less likely to help) dc ivf and octreotide (no s/s variceal bleed and already has ascites) I advised Mr Celis he will if he continues to drink.
[2022-03-06] MEDS: Phytonadione (Vit K1) 10 MG in 0.9 % Sodium Chloride 50 ML 51 MG IV (16:39)
[2022-03-06] MEDS: ondansetron HCL 4 MG/2 ML VIAL IVPUSH (19:21)
[2022-03-06] MEDS: rifAXIMin 550 MG TABLET PO (20:42)
[2022-03-07] VITALS: BP 113/58; PULSE 57; RESP 18; TEMP 36.6; O2SAT 95
[2022-03-07] MEDS: 0.9 % Sodium Chloride Flush 3 ML SYRINGE IVFLUSH ×4 (01:40→20:29)
[2022-03-07 04:00] VITALS: BP 106/62; PULSE 52; RESP 18; TEMP 36.5; O2SAT 94
[2022-03-07] MEDS: Levothyroxine Sodium 25 MCG TABLET PO (05:01)
[2022-03-07] MEDS: Pantoprazole Sodium 40 MG/10 ML VIAL IVPUSH ×2 (05:06→17:24)
[2022-03-07 08:34] VITALS: BP 102/64; PULSE 47; RESP 16; TEMP 36.2; O2SAT 95
[2022-03-07 08:45] LABS: Hematocrit 24.2 % (42.0-52.0); Hemoglobin 8.5 g/dl (14.0-18.0); Mean Corpuscular HGB Conc 35.1 g/dl (31.0-36.0); Mean Corpuscular Hemoglobin 33.2 pg (27.0-33.0); Mean Corpuscular Volume 94.5 fL (80.0-98.0); Platelet Count 30 X10*3/uL (160-400); Red Blood Count 2.56 X10*6/uL (4.60-5.80); Red Cell Distribution Width 16.9 % (11.0-16.0); White Blood Count 4.7 X10*3/uL (4.8-10.8)
[2022-03-07 08:47] LABS: INTERNATIONAL NORM RATIO 1.9 (0.9-1.1); Prothrombin Time 22.1 SEC (10.0-13.1)
[2022-03-07 09:09] LABS: Alanine Aminotransferase 40 U/L (0-40); Albumin Level 2.1 g/dL (3.5-5.0); Alkaline Phosphatase 254 U/L (39-117); Anion Gap 12 (12-20); Aspartate Amino Transferase 194 U/L (5-37); Bilirubin Direct 10.7 mg/dL (0.0-0.5); Bilirubin Total 19.6 mg/dL (0.0-1.0); Blood Urea Nitrogen 17 mg/dL (9-16); Calcium 7.4 mg/dL (8.4-10.2); Carbon Dioxide 20 mmol/L (22-29); Chloride 106 mmol/L (96-108); Estimated Glomerular Filt Rate 36; Glucose Fasting 141 mg/dL (60-99); Magnesium 1.2 mg/dL (1.6-2.6); Potassium 2.9 mmol/L (3.3-5.1); Sodium 135 mmol/L (135-145); Total Protein 6.7 g/dL (6.5-8.0)
[2022-03-07] MEDS: Magnesium Oxide 400 MG TABLET PO ×2 (09:41→17:24)
[2022-03-07] MEDS: Potassium Chloride ER 20 MEQ TAB.ER.PRT PO (09:41)
[2022-03-07] MEDS: Atorvastatin Calcium 10 MG TABLET PO (09:41)
[2022-03-07] MEDS: Thiamine HCL 100 MG TABLET PO (09:41)
[2022-03-07] MEDS: PHENobarbitaL 30 MG TABLET 60 MG PO ×2 (09:41→20:29)
[2022-03-07] MEDS: Multivitamin TABLET 1 TAB PO (09:42)
[2022-03-07] MEDS: Escitalopram Oxalate 20 MG TABLET PO (09:42)
[2022-03-07] MEDS: Folic Acid 1 MG TABLET PO (09:42)
[2022-03-07] MEDS: Cyanocobalamin (Vitamin B-12) 1,000 MCG TABLET 1000 MCG PO (09:42)
[2022-03-07] MEDS: rifAXIMin 550 MG TABLET PO ×2 (09:42→20:29)
--- NOTE | 2022-03-07 10:44 | CONS_ITS ---
DATE OF SERVICE: 03/06/2022 REFERRING PHYSICIAN: Rangel Staples REASON FOR CONSULTATION: Rectal bleeding, diarrhea, and cirrhosis. HISTORY OF PRESENT ILLNESS: The patient is a 57-year-old man, well known to me from prior evaluation. He has a history of alcoholic liver disease with cirrhosis, which has been complicated by nonbleeding esophageal varices, ascites and hepatic encephalopathy. He continues to drink alcohol despite medical advice against this. He presented to the emergency department yesterday with complaints of diarrhea for 1 week, which became bloody as well as general weakness and fatigue. He states his last drink of alcohol was the day of admission. He was evaluated in the emergency department and noted to have a hematocrit of 21.6 on admission. He did receive some IV fluids and a unit of blood. His hematocrit this morning is 20.3. There has been no reported GI bleeding since admission. Rectal examination at the time of emergency room evaluation showed brown stool with no blood, which was trace guaiac positive. He has had 1 nonbloody diarrheal stools since admission. Pertinent laboratory studies on admission, in addition, to his low hematocrit included elevation of his liver enzymes in a pattern, consistent with alcohol with a total bilirubin of 13 up from 4.7 10 days ago, an elevation of his INR at 24.3, and significant thrombocytopenia with a platelet count of 40 yesterday, which dropped to 28 today. PAST MEDICAL HISTORY: 1. Alcoholic hepatitis with cirrhosis and ascites, nonbleeding varices, and history of hepatic encephalopathy. 2. DVT/PE with heterozygous prothrombin gene mutation. 3. Colonoscopy, 05/28/2017, sigmoid diverticulosis and 2 hyperplastic rectal polyps with normal sigmoid biopsies. 4. Upper endoscopy, 07/27/2021. Grade 2 esophageal varices, nonbleeding with portal hypertensive gastropathy. 5. Neuropathy with falls. 6. Asthma. CURRENT MEDICATIONS: Current medication list is reviewed in the chart. ALLERGIES: THERE ARE NONE REPORTED. FAMILY HISTORY: This is reviewed. There is no family history of colon cancer or liver disease by his report. SOCIAL HISTORY: There is no tobacco use. Alcohol use is as noted above. REVIEW OF SYSTEMS: SKIN: No pruritus. HEENT: Negative. CARDIOPULMONARY: No shortness of breath or chest pain. GASTROINTESTINAL: As above. GENITOURINARY: Negative. NEUROPSYCHIATRIC: Negative. PHYSICAL EXAMINATION: GENERAL: Shows a male lying in bed. He appears dishevelled. VITAL SIGNS: Stable. SKIN: Icteric. HEENT: Shows scleral icterus NECK: Without lymphadenopathy or thyromegaly. LUNGS: Clear. HEART: Shows a regular rate and rhythm. S1, S2. No murmur. ABDOMEN: Distended. Bowel sounds are present. There is no tenderness to palpation. EXTREMITIES: Show mild edema. LABORATORY DATA: Reviewed as is imaging including CT scanning. IMPRESSION: Alcoholic hepatitis with recent diarrhea and rectal bleeding, and complications of nonbleeding esophageal varices, ascites, neuropathy, and hepatic encephalopathy. At this time, he does not appear to have any active bleeding and I would recommend transfusion of 2 additional units of packed red blood cells because of his hemoglobin of 7 and symptomatic fatigue. I would not recommend endoscopic evaluation given his significant thrombocytopenia and elevated INR, which partially could be related to dietary, lack of vitamin K's. I would recommend IV vitamin K. He does not appear to have any active bleeding, so his octreotide can be discontinued and I would discontinue IV fluids due to his history of ascites. Stool specimens have been ordered for his diarrhea. His rectal bleeding could be related to a diverticular source or possibly hemorrhoids given his elevated INR and low platelets. He does not appear to be bleeding at this time. I would recommend treating his encephalopathy with rifaximin as he has already had some diarrhea, so lactulose is less likely to be helpful. This can be switched to lactulose if his diarrhea resolves. I discussed with Mr. Celis that his continued alcohol use will lead to liver failure and . Thanks for asking me to see him. I will follow him in the hospital with you. MD ELMER Mendoza/HERNAN / [phone]
[2022-03-07] MEDS: Magnesium Sulfate/H2O 2 GM/50 ML PIGGYBACK IV (11:25)
[2022-03-07 11:38] VITALS: BP 106/66; PULSE 47; RESP 20; TEMP 36.2; O2SAT 94
--- NOTE | 2022-03-07 13:00 | PC.NURSE ---
patient a/ox4 .pearrla . sclera yellow . lungs clear .breathing even and unlabored . heart rate regular at 52 . skin warm dry and jaundice . abdomen soft , distended , hypoactive bowel sounds noted . patient reports 0 out of 10 pain level . patient aware of plan of care .
--- NOTE | 2022-03-07 14:43 | P.PNIM_ITS ---
Subjective Subjective Date of Service: 03/07/22 Interval History: the patient was seen and evaluated this morning Laying in bed, more alert and interactive Denies any pain or bloody bowel motions No reported other overnight events. Systemic review: No fever, chills but reports feeling generalized weakness No chest pain, palpitation No shortness of breath or coughing No abdominal pain, nausea or vomiting No urinary symptoms No any rash or wounds Physical Exam Vital Signs: Vital Signs: Last Vital Signs Temp 97.2 F 03/07/22 11:38 Pulse 47 L 03/07/22 11:38 Resp 20 03/07/22 11:38 BP 106/66 03/07/22 11:38 Pulse Ox 94 03/07/22 11:38 O2 Del Method 03/07/22 11:38 BMI result Body Mass Index 24.4 Const: Other: Constitutional : Alert, interactive upon relation, mildly anxious Neck : Normal inspection, Supple Cardiovascular : RRR, no JVP, no lower extremity edema Respiratory : fair bilateral air entry, no crackles, wheezes or rhonchi Gastrointestinal: soft, lax, Normal bowel sounds, Non tender Skin : Warm, Dry Neurological : Alert & oriented x3, No focal deficit Objective Data Active Medications Albuterol Sulfate (Albuterol Sulfate 90 Mcg 8 Gm Inhaler) 2 puff INHALE Q4H PRN PRN Reason: Shortness Of Breath Atorvastatin Calcium (Atorvastatin Calcium 10 Mg Tablet) 10 mg PO DAILY [facility] Last Admin: 03/07/22 09:41 Dose: 10 mg Documented By: NANCY Cyanocobalamin (Cyanocobalamin (Vitamin B-12) 1,000 Mcg Tablet) 1,000 mcg PO DAILY [facility] Last Admin: 03/07/22 09:42 Dose: 1,000 mcg Documented By: NANCY Docusate Sodium (Docusate Sodium 100 Mg Capsule) 100 mg PO DAILY PRN PRN Reason: Constipation Escitalopram Oxalate (Escitalopram Oxalate 20 Mg Tablet) 20 mg PO DAILY [facility] Last Admin: 03/07/22 09:42 Dose: 20 mg Documented By: NANCY Folic Acid (Folic Acid 1 Mg Tablet) 1 mg PO DAILY [facility] Last Admin: 03/07/22 09:42 Dose: 1 mg Documented By: NANCY Levothyroxine Sodium (Levothyroxine Sodium 25 Mcg Tablet) 25 mcg PO DAILY@0600 [facility] Last Admin: 03/07/22 05:01 Dose: 25 mcg Documented By: REINALDO Magnesium Oxide (Magnesium Oxide 400 Mg Tablet) 400 mg PO DAILY [facility] Last Admin: 03/07/22 09:41 Dose: 400 mg Documented By: NANCY Magnesium Oxide (Magnesium Oxide 400 Mg Tablet) [facility] Multivitamins/Vitamin C (Multivitamin Tablet) 1 tab PO DAILY [facility] Last Admin: 03/07/22 09:42 Dose: 1 tab Documented By: NANCY Nadolol (Nadolol 40 Mg Tablet) 40 mg PO DAILY [facility]; Protocol Last Admin: 03/07/22 09:41 Dose: 40 mg Documented By: NANCY Ondansetron HCl (Ondansetron Hcl 4 Mg/2 Ml Vial) 4 mg IVPUSH Q8H PRN PRN Reason: Nausea and Vomiting Last Admin: 03/06/22 19:21 Dose: 4 mg Documented By: TERESA Pantoprazole Sodium (Pantoprazole Sodium 40 Mg/10 Ml Vial) 40 mg IVPUSH BID@0630,1630 [facility] Last Admin: 03/07/22 05:06 Dose: 40 mg Documented By: REINALDO Pharmacy Consult (Consult Rx Perform Med Rec) 1 each MISCELLANE ONCE PRN PRN Reason: Consult order Pharmacy Consult (Consult Rx Etoh Phenob Im/Po) 1 each MISCELLANE ONCE PRN; Protocol PRN Reason: Consult order Phenobarbital (Phenobarbital 30 Mg Tablet) 60 mg PO BID [facility] Stop: 03/07/22 21:01 Last Admin: 03/07/22 09:41 Dose: 60 mg Documented By: NANCY Phenobarbital (Phenobarbital 30 Mg Tablet) 30 mg PO BID [facility] Stop: 03/09/22 21:01 Phenobarbital (Phenobarbital 30 Mg Tablet) 30 mg PO DAILY [facility] Stop: 03/11/22 09:01 Potassium Chloride (Potassium Chloride Er 20 Meq Tab.Er.Prt) 20 meq PO DAILY [facility] Last Admin: 03/07/22 09:41 Dose: 20 meq Documented By: NANCY Pyridoxine HCl (Pyridoxine Hcl (Vitamin B6) 50 Mg Tablet) 100 mg PO DAILY [facility] Last Admin: 03/07/22 11:06 Dose: Not Given Documented By: NANCY Non-Admin Reason: Med Not Available Rifaximin (Rifaximin 550 Mg Tablet) 550 mg PO BID [facility] Last Admin: 03/07/22 09:42 Dose: 550 mg Documented By: NANCY Sodium Chloride (0.9 % Sodium Chloride Flush 3 Ml Syringe) 3 ml IVFLUSH QSHIFT [facility] Last Admin: 03/07/22 09:42 Dose: 3 ml Documented By: NANCY Thiamine HCl (Thiamine Hcl 100 Mg Tablet) 100 mg PO DAILY [facility] Last Admin: 03/07/22 09:41 Dose: 100 mg Documented By: NANCY Labs CBC & Chem 7: 03/07/22 08:04 03/07/22 08:04 Labs: Laboratory Results - last 24 hr 03/05/22 03/07/22 03/07/22 18:34 08:04 08:04 MCV 94.5 MCH 33.2 H MCHC 35.1 RDW 16.9 H Plt Count 30 L MPV 10.0 Absolute Nucleated RBC 0.000 Nucleated RBC % (auto) 0.0 PT 22.1 H INR 1.9 H Anion Gap Estim Creat Clear Calc Estimated GFR Fasting Glucose Calcium Magnesium Total Bilirubin Direct Bilirubin AST ALT Alkaline Phosphatase Total Protein Albumin Blood Type O Positive Antibody Screen NEGATIVE Crossmatch See Detail 03/07/22 08:04 MCV MCH MCHC RDW Plt Count MPV Absolute Nucleated RBC Nucleated RBC % (auto) PT INR Anion Gap 12 Estim Creat Clear Calc 46.0 Estimated GFR 36 Fasting Glucose 141 H Calcium 7.4 L Magnesium 1.2 L* Total Bilirubin 19.6 H Direct Bilirubin 10.7 H AST 194 H ALT 40 Alkaline Phosphatase 254 H D Total Protein 6.7 Albumin 2.1 L Blood Type Antibody Screen Crossmatch Assessment and Plan (1) Bloody diarrhea: Status: Acute (2) Lower gastrointestinal hemorrhage: Status: Acute (3) Alcohol abuse: Status: Acute (4) Acute blood loss anemia: Status: Acute (5) Alcohol withdrawal: Status: Acute Plan 57M with pmh alcohol dependence with cirrhosis presented with diarrhea and blood in stool acute blood loss symptomatic anemia due to gi bleed in patient with alcohol cirrhosis No bleeding reported DC octreotide, and IV fluid Continue ppi Received total of 3 units of blood with HPV 8.6 this morning Transfuse to extremes of blood for symptomatic anemia GI input appreciated, diverticular VS hemorrhoids, hold on endoscopy, IV vitamin K, rifaximin Stool studies alcohol dependence with withdrawal Advised complete abstinence from alcohol Continue phenobarb, ciwa alcohol cirrhosis with pancytopenia and acute alcoholic hepatitis and elevated INR Transaminitis still trending up Add rifaximin for encephalopathy Vitamin K given, follow INR Follow LFT Hypomagnesemia Mg of 1.2 To give IV and p.o. supplement hypothyroid synthroid narayan Stable at 1.9 Hold fluids and monitor BMP Hypokalemia Potassium of 2.9 Give supplement and monitor dvt prophylaxis mechanical due to gi bleed and thrombocytopenia full code reason for continued hospitalization: Symptomatic anemia, alcohol withdrawal, acute kidney injury in hypomagnesemia requiring repeat blood work and close mo nitoring pending safe discharge plan Quality Stroke Does the patient have a stroke diagnosis?: No VTE Prior VTE?: No VTE Risk Level:: Medical - moderate - high VTE Device Contraindication: N/A - Device Ordered VTE Drug Contraindication: Treatment Not Indicated
--- NOTE | 2022-03-07 16:01 | PC.NURSE ---
Report given to Riley HUNTER . patient aware of plan of care .
[2022-03-07 16:44] VITALS: BMI 24.5
--- NOTE | 2022-03-07 17:10 | PM.GIPN ---
Subjective Subjective Date of Service: 03/07/22 Interval History: c/o feeling tired Critical Care Time (minutes): 0 Physical Exam Vital Signs: Vital Signs: Last Vital Signs Temp 97.7 F 03/07/22 20:00 Pulse 48 L 03/07/22 20:00 Resp 18 03/07/22 20:00 BP 100/57 L 03/07/22 20:00 Pulse Ox 98 03/07/22 20:00 O2 Del Method 03/07/22 20:00 BMI result Body Mass Index 24.5 Const: Other: jaundiced GI: Other: protuberant, nontender asterixis is present Objective Data Labs CBC & Chem 7: 03/07/22 08:04 03/07/22 08:04 Labs: Laboratory Results - last 24 hr 03/05/22 03/07/22 03/07/22 18:34 08:04 08:04 WBC 4.7 L RBC 2.56 L D Hgb 8.5 L Hct 24.2 L MCV 94.5 MCH 33.2 H MCHC 35.1 RDW 16.9 H Plt Count 30 L MPV 10.0 Absolute Nucleated RBC 0.000 Nucleated RBC % (auto) 0.0 PT 22.1 H INR 1.9 H Sodium Potassium Chloride Carbon Dioxide Anion Gap BUN Creatinine Estim Creat Clear Calc Estimated GFR Fasting Glucose Calcium Magnesium Total Bilirubin Direct Bilirubin AST ALT Alkaline Phosphatase Total Protein Albumin C. difficile Tox B Gene Crossmatch See Detail 03/07/22 03/07/22 08:04 Unknown WBC RBC Hgb Hct MCV MCH MCHC RDW Plt Count MPV Absolute Nucleated RBC Nucleated RBC % (auto) PT INR Sodium 135 Potassium 2.9 L Chloride 106 Carbon Dioxide 20 L Anion Gap 12 BUN 17 H Creatinine 1.92 H Estim Creat Clear Calc 46.0 Estimated GFR 36 Fasting Glucose 141 H Calcium 7.4 L Magnesium 1.2 L* Total Bilirubin 19.6 H Direct Bilirubin 10.7 H AST 194 H ALT 40 Alkaline Phosphatase 254 H D Total Protein 6.7 Albumin 2.1 L C. difficile Tox B Gene NEGATIVE Crossmatch Procedures Date of Service Date of Service: 03/07/22 Progress Note: A&P Assessment and plan (1) Bloody diarrhea: Status: Acute Assessment and Plan: check stool tests follow hct, s/p 3 u prbcs continue xifaxan for hepatic encephalopathy elvated bun/cr, so hold off on diuretics for small amt ascites on ct. Time Spent With Patient Time: Total time spent is greater than 50% in coordination of care (as documented) at patient's floor/unit and/or counseling patient: Quality Stroke Does the patient have a stroke diagnosis?: No VTE Prior VTE?: No VTE Risk Level:: Medical - moderate - high VTE Device Contraindication: N/A - Device Ordered VTE Drug Contraindication: Treatment Not Indicated
[2022-03-07 20:00] VITALS: BP 100/57; PULSE 48; RESP 18; TEMP 36.5; O2SAT 98
[2022-03-07 20:39] LABS: CDiff Gene PCR NEGATIVE (Negative)
[2022-03-08] VITALS (7 sets, daily range): BP systolic 101–127; BP diastolic 58–76; PULSE 46–51; RESP 16–18; TEMP 36–36.5; O2SAT 96–97
[2022-03-08] MEDS: Acetaminophen 325 MG TABLET 650 MG PO (04:53)
[2022-03-08] MEDS: Pantoprazole Sodium 40 MG/10 ML VIAL IVPUSH (05:51)
[2022-03-08] MEDS: Levothyroxine Sodium 25 MCG TABLET PO (05:51)
[2022-03-08 06:46] LABS: Alanine Aminotransferase 56 U/L (0-40); Albumin Level 2.1 g/dL (3.5-5.0); Alkaline Phosphatase 259 U/L (39-117); Aspartate Amino Transferase 235 U/L (5-37); Bilirubin Direct 11.4 mg/dL (0.0-0.5); Bilirubin Total 19.7 mg/dL (0.0-1.0)
[2022-03-08 06:47] LABS: Anion Gap 17 (12-20); Blood Urea Nitrogen 15 mg/dL (9-16); Calcium 7.7 mg/dL (8.4-10.2); Carbon Dioxide 16 mmol/L (22-29); Chloride 106 mmol/L (96-108); Creatinine Clr Calc Pharmacy 49.9; Estimated Glomerular Filt Rate 40; Glucose Random 123 mg/dL (60-115); Potassium 3.8 mmol/L (3.3-5.1); Sodium 135 mmol/L (135-145)
[2022-03-08 06:55] LABS: Hematocrit 25.6 % (42.0-52.0); Mean Corpuscular HGB Conc 35.2 g/dl (31.0-36.0); Mean Corpuscular Hemoglobin 33.6 pg (27.0-33.0); Mean Corpuscular Volume 95.5 fL (80.0-98.0); Mean Platelet Volume 12.9 fL (9.4-12.4); Red Blood Count 2.68 X10*6/uL (4.60-5.80); Red Cell Distribution Width 17.4 % (11.0-16.0); White Blood Count 4.7 X10*3/uL (4.8-10.8)
[2022-03-08 06:59] LABS: Platelet Count 32 X10*3/uL (160-400)
[2022-03-08] MEDS: Pyridoxine HCl (Vitamin B6) 50 MG TABLET 100 MG PO (08:56)
[2022-03-08] MEDS: Atorvastatin Calcium 10 MG TABLET PO (08:56)
[2022-03-08] MEDS: Potassium Chloride ER 20 MEQ TAB.ER.PRT PO (08:56)
[2022-03-08] MEDS: Thiamine HCL 100 MG TABLET PO (08:56)
[2022-03-08] MEDS: Magnesium Oxide 400 MG TABLET PO ×2 (08:56→17:41)
[2022-03-08] MEDS: Cyanocobalamin (Vitamin B-12) 1,000 MCG TABLET 1000 MCG PO (08:56)
[2022-03-08] MEDS: Multivitamin TABLET 1 TAB PO (08:57)
[2022-03-08] MEDS: rifAXIMin 550 MG TABLET PO ×2 (08:57→21:05)
[2022-03-08] MEDS: Folic Acid 1 MG TABLET PO (08:57)
[2022-03-08] MEDS: PHENobarbitaL 30 MG TABLET PO ×2 (08:57→21:05)
[2022-03-08] MEDS: Escitalopram Oxalate 20 MG TABLET PO (08:58)
[2022-03-08] MEDS: 0.9 % Sodium Chloride Flush 3 ML SYRINGE IVFLUSH ×3 (09:02→21:05)
--- NOTE | 2022-03-08 09:51 | HO.PM.IMPN ---
Subjective Subjective Date of Service: 03/08/22 Interval History: the patient was seen and evaluated this morning Laying in bed, more alert and interactive but still mildly confused Jaundiced Denies any pain but reported having small bloody bowel motions No reported other overnight events. Systemic review: No fever, chills but reports feeling generalized weakness No chest pain, palpitation No shortness of breath or coughing No abdominal pain, nausea or vomiting No urinary symptoms No any rash or wounds Physical Exam Vital Signs: Vital Signs: Last Vital Signs Temp 96.8 F 03/08/22 07:52 Pulse 48 L 03/08/22 07:52 Resp 18 03/08/22 07:52 BP 122/76 03/08/22 07:52 Pulse Ox 97 03/08/22 07:52 O2 Del Method 03/08/22 07:52 BMI result Body Mass Index 24.5 Const: Other: Constitutional : Alert, interactive upon stimulation, sleepy, jaundiced Neck : Normal inspection, Supple Cardiovascular : RRR, no JVP, no lower extremity edema Respiratory : fair bilateral air entry, no crackles, wheezes or rhonchi Gastrointestinal: soft, lax, Normal bowel sounds, Non tender Skin : Warm, Dry Neurological : Alert with stimulation & oriented to self and place, No focal deficit Objective Data Active Medications Albuterol Sulfate (Albuterol Sulfate 90 Mcg 8 Gm Inhaler) 2 puff INHALE Q4H PRN PRN Reason: Shortness Of Breath Atorvastatin Calcium (Atorvastatin Calcium 10 Mg Tablet) 10 mg PO DAILY [facility] Last Admin: 03/08/22 08:56 Dose: 10 mg Documented By: JUAN DIEGO Cyanocobalamin (Cyanocobalamin (Vitamin B-12) 1,000 Mcg Tablet) 1,000 mcg PO DAILY [facility] Last Admin: 03/08/22 08:56 Dose: 1,000 mcg Documented By: JUAN DIEGO Docusate Sodium (Docusate Sodium 100 Mg Capsule) 100 mg PO DAILY PRN PRN Reason: Constipation Escitalopram Oxalate (Escitalopram Oxalate 20 Mg Tablet) 20 mg PO DAILY [facility] Last Admin: 03/08/22 08:58 Dose: 20 mg Documented By: JUAN DIEGO Folic Acid (Folic Acid 1 Mg Tablet) 1 mg PO DAILY [facility] Last Admin: 03/08/22 08:57 Dose: 1 mg Documented By: JUAN DIEGO Levothyroxine Sodium (Levothyroxine Sodium 25 Mcg Tablet) 25 mcg PO DAILY@0600 [facility] Last Admin: 03/08/22 05:51 Dose: 25 mcg Documented By: MODESTOB Magn[facility] Oxide ([facility] 400 Mg [facility]t) [facility] Last Admin: 03/08/22 08:56 Dose: 400 mg Documented By: JUAN DIEGO Multivitamins/Vitamin C (Multivitamin Tablet) 1 tab PO DAILY [facility] Last Admin: 03/08/22 08:57 Dose: 1 tab Documented By: JUAN DIEGO Nadolol (Nadolol 40 Mg Tablet) 40 mg PO DAILY [facility]; Protocol Last Admin: 03/08/22 09:04 Dose: Not Given Documented By: JUAN DIEGO Non-Admin Reason: Pt Heart rate 48 Omeprazole (Omeprazole 40 Mg Capsule.Dr) 40 mg PO BID@0630,1630 [facility] Ondansetron HCl (Ondansetron Hcl 4 Mg/2 Ml Vial) 4 mg IVPUSH Q8H PRN PRN Reason: Nausea and Vomiting Last Admin: 03/06/22 19:21 Dose: 4 mg Documented By: TERESA Pharmacy Consult (Consult Rx Perform Med Rec) 1 each MISCELLANE ONCE PRN PRN Reason: Consult order Pharmacy Consult (Consult Rx Etoh Phenob Im/Po) 1 each MISCELLANE ONCE PRN; Protocol PRN Reason: Consult order Phenobarbital (Phenobarbital 30 Mg Tablet) 30 mg PO BID [facility] Stop: 03/09/22 21:01 Last Admin: 03/08/22 08:57 Dose: 30 mg Documented By: JUAN DIEGO Phenobarbital (Phenobarbital 30 Mg Tablet) 30 mg PO DAILY [facility] Stop: 03/11/22 09:01 Potassium Chloride (Potassium Chloride Er 20 Meq Tab.Er.Prt) 20 meq PO DAILY [facility] Last Admin: 03/08/22 08:56 Dose: 20 meq Documented By: JUAN DIEGO Pyridoxine HCl (Pyridoxine Hcl (Vitamin B6) 50 Mg Tablet) 100 mg PO DAILY [facility] Last Admin: 03/08/22 08:56 Dose: 100 mg Documented By: JUAN DIEGO Rifaximin (Rifaximin 550 Mg Tablet) 550 mg PO BID [facility] Last Admin: 03/08/22 08:57 Dose: 550 mg Documented By: JUAN DIEGO Sodium Chloride (0.9 % Sodium Chloride Flush 3 Ml Syringe) 3 ml IVFLUSH QSHIFT [facility] Last Admin: 03/08/22 09:02 Dose: 3 ml Documented By: JUAN DIEGO Thiamine HCl (Thiamine Hcl 100 Mg Tablet) 100 mg PO DAILY [facility] Last Admin: 03/08/22 08:56 Dose: 100 mg Documented By: JUAN DIEGO Labs CBC & Chem 7: 03/08/22 05:51 03/08/22 05:51 Labs: Laboratory Results - last 24 hr 03/07/22 03/08/22 03/08/22 Unknown 05:51 05:51 MCV 95.5 MCH 33.6 H MCHC 35.2 RDW 17.4 H Plt Count 32 L MPV 12.9 H Absolute Nucleated RBC 0.000 Nucleated RBC % (auto) 0.0 Anion Gap 17 Estim Creat Clear Calc 49.9 Estimated GFR 40 Random Glucose 123 H Calcium 7.7 L Total Bilirubin Direct Bilirubin AST ALT Alkaline Phosphatase Total Protein Albumin C. difficile Tox B Gene NEGATIVE 03/08/22 05:51 MCV MCH MCHC RDW Plt Count MPV Absolute Nucleated RBC Nucleated RBC % (auto) Anion Gap Estim Creat Clear Calc Estimated GFR Random Glucose Calcium Total Bilirubin 19.7 H Direct Bilirubin 11.4 H AST 235 H ALT 56 H Alkaline Phosphatase 259 H Total Protein 7.0 Albumin 2.1 L C. difficile Tox B Gene Assessment and Plan (1) Acute blood loss anemia: Status: Acute (2) Alcohol withdrawal: Status: Acute (3) Hepatic encephalopathy: Status: Acute (4) Cirrhosis of liver: Status: Acute Plan 57M with pmh alcohol dependence with cirrhosis presented with diarrhea and blood in stool acute blood loss symptomatic anemia due to gi bleed in patient with alcohol cirrhosis Bloody tinge to small amount Hemoglobin stable at 9 Continue ppi Received total of 3 units of blood GI input appreciated, diverticular VS hemorrhoids, hold on endoscopy, IV vitamin K, rifaximin Stool studies 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 with pancytopenia and acute alcoholic hepatitis and elevated INR Transaminitis still trending up Continue rifaximin for encephalopathy , add lactulose b.i.d. Vitamin K given, follow INR Follow LFT alcohol dependence with withdrawal Advised complete abstinence from alcohol Continue phenobarb, ciwa Hypomagnesemia Replacement given p.o. supplement hypothyroid synthroid narayan Stable at 1.9 Hold fluids and monitor BMP Hypokalemia Potassium of 2.9 Give supplement and monitor dvt prophylaxis mechanical due to gi bleed and thrombocytopenia full code reason for continued hospitalization: Symptomatic anemia, alcohol withdrawal, acute kidney injury in hypomagnesemia requiring repeat blood work and close monitoring pending safe discharge plan Quality Stroke Does the patient have a stroke diagnosis?: No VTE Prior VTE?: No VTE Risk Level:: Medical - moderate - high VTE Device Contraindication: N/A - Device Ordered VTE Drug Contraindication: Treatment Not Indicated
[2022-03-08] MEDS: Lactulose 20 GM/30 ML SOLUTION PO ×2 (12:12→21:05)
--- NOTE | 2022-03-08 13:30 | PM.GIPN ---
Subjective Subjective Date of Service: 03/08/22 Interval History: sleepy Critical Care Time (minutes): 0 Physical Exam Vital Signs: Vital Signs: Last Vital Signs Temp 96.8 F 03/08/22 11:55 Pulse 46 L 03/08/22 11:55 Resp 18 03/08/22 11:55 BP 101/58 L 03/08/22 11:55 Pulse Ox 96 03/08/22 11:55 O2 Del Method 03/08/22 11:55 BMI result Body Mass Index 24.5 Const: Other: sleepy GI: Other: protuberant, nontender Objective Data Labs CBC & Chem 7: 03/08/22 05:51 03/08/22 05:51 Labs: Laboratory Results - last 24 hr 03/07/22 03/08/22 03/08/22 Unknown 05:51 05:51 WBC 4.7 L RBC 2.68 L Hgb 9.0 L Hct 25.6 L MCV 95.5 MCH 33.6 H MCHC 35.2 RDW 17.4 H Plt Count 32 L MPV 12.9 H Absolute Nucleated RBC 0.000 Nucleated RBC % (auto) 0.0 Sodium 135 Potassium 3.8 D Chloride 106 Carbon Dioxide 16 L Anion Gap 17 BUN 15 Creatinine 1.77 H Estim Creat Clear Calc 49.9 Estimated GFR 40 Random Glucose 123 H Calcium 7.7 L Total Bilirubin Direct Bilirubin AST ALT Alkaline Phosphatase Total Protein Albumin C. difficile Tox B Gene NEGATIVE 03/08/22 05:51 WBC RBC Hgb Hct MCV MCH MCHC RDW Plt Count MPV Absolute Nucleated RBC Nucleated RBC % (auto) Sodium Potassium Chloride Carbon Dioxide Anion Gap BUN Creatinine Estim Creat Clear Calc Estimated GFR Random Glucose Calcium Total Bilirubin 19.7 H Direct Bilirubin 11.4 H AST 235 H ALT 56 H Alkaline Phosphatase 259 H Total Protein 7.0 Albumin 2.1 L C. difficile Tox B Gene Procedures Date of Service Date of Service: 03/08/22 Progress Note: A&P Assessment and plan (1) Cirrhosis of liver: Status: Acute Assessment and Plan: no evidence of underlying infection so steroids should be ok, ordered. continue rx for hepatic encephalopathy hct stable, no significant bleeding Time Spent With Patient Time: Total time spent is greater than 50% in coordination of care (as documented) at patient's floor/unit and/or counseling patient: Quality Stroke Does the patient have a stroke diagnosis?: No VTE Prior VTE?: No VTE Risk Level:: Medical - moderate - high VTE Device Contraindication: N/A - Device Ordered VTE Drug Contraindication: Treatment Not Indicated
[2022-03-08] MEDS: prednisoLONE sodium phosphate 15 MG/5 ML SOLUTION 40 MG PO (14:51)
[2022-03-08] MEDS: Omeprazole 40 MG CAPSULE.DR PO (17:40)
[2022-03-09 04:00] VITALS: BP 118/65; PULSE 48; RESP 18; TEMP 37; O2SAT 98
[2022-03-09] MEDS: Omeprazole 40 MG CAPSULE.DR PO ×2 (05:57→17:44)
[2022-03-09] MEDS: Levothyroxine Sodium 25 MCG TABLET PO (05:57)
[2022-03-09 06:55] LABS: Hematocrit 25.2 % (42.0-52.0); Mean Corpuscular HGB Conc 35.7 g/dl (31.0-36.0); Mean Corpuscular Hemoglobin 33.8 pg (27.0-33.0); Mean Corpuscular Volume 94.7 fL (80.0-98.0); Mean Platelet Volume 12.4 fL (9.4-12.4); Red Blood Count 2.66 X10*6/uL (4.60-5.80); Red Cell Distribution Width 17.5 % (11.0-16.0); White Blood Count 4.9 X10*3/uL (4.8-10.8)
[2022-03-09 07:17] LABS: Platelet Count 36 X10*3/uL (160-400)
[2022-03-09 07:24] LABS: Anion Gap 11 (12-20); Blood Urea Nitrogen 14 mg/dL (9-16); Calcium 7.8 mg/dL (8.4-10.2); Carbon Dioxide 21 mmol/L (22-29); Chloride 107 mmol/L (96-108); Creatinine Clr Calc Pharmacy 44.1; Estimated Glomerular Filt Rate 34; Glucose Random 157 mg/dL (60-115); Potassium 3.3 mmol/L (3.3-5.1); Sodium 136 mmol/L (135-145)
[2022-03-09 07:32] LABS: Alanine Aminotransferase 56 U/L (0-40); Alkaline Phosphatase 238 U/L (39-117); Aspartate Amino Transferase 211 U/L (5-37); Bilirubin Direct 10.9 mg/dL (0.0-0.5); Bilirubin Total 18.7 mg/dL (0.0-1.0); Total Protein 6.6 g/dL (6.5-8.0)
[2022-03-09 07:39] VITALS: BP 109/63; PULSE 47; RESP 18; TEMP 36.7; O2SAT 97
[2022-03-09] MEDS: Pyridoxine HCl (Vitamin B6) 50 MG TABLET 100 MG PO (09:09)
[2022-03-09] MEDS: Thiamine HCL 100 MG TABLET PO (09:09)
[2022-03-09] MEDS: Multivitamin TABLET 1 TAB PO (09:09)
[2022-03-09] MEDS: Folic Acid 1 MG TABLET PO (09:10)
[2022-03-09] MEDS: rifAXIMin 550 MG TABLET PO ×2 (09:10→21:24)
[2022-03-09] MEDS: PHENobarbitaL 30 MG TABLET PO ×2 (09:10→21:24)
[2022-03-09] MEDS: Cyanocobalamin (Vitamin B-12) 1,000 MCG TABLET 1000 MCG PO (09:10)
[2022-03-09] MEDS: Escitalopram Oxalate 20 MG TABLET PO (09:10)
[2022-03-09] MEDS: Atorvastatin Calcium 10 MG TABLET PO (09:10)
[2022-03-09] MEDS: prednisoLONE sodium phosphate 15 MG/5 ML SOLUTION 40 MG PO (09:11)
[2022-03-09] MEDS: Lactulose 20 GM/30 ML SOLUTION PO (09:11)
[2022-03-09] MEDS: Magnesium Oxide 400 MG TABLET PO ×2 (09:11→17:44)
[2022-03-09] MEDS: 0.9 % Sodium Chloride Flush 3 ML SYRINGE IVFLUSH ×3 (09:19→21:24)
[2022-03-09] MEDS: Potassium Chloride ER 20 MEQ TAB.ER.PRT PO (09:25)
[2022-03-09 11:17] VITALS: BP 112/75; PULSE 44; RESP 17; TEMP 36.1; O2SAT 97
--- NOTE | 2022-03-09 12:18 | MHC.CM.PN ---
Per MD rounds, no plan for patient's d/c today. CM will continue to follow for d/c planning needs.
--- NOTE | 2022-03-09 14:16 | PM.GIPN ---
Subjective Subjective Date of Service: 03/09/22 Interval History: still has diarrhea Critical Care Time (minutes): 0 Physical Exam Vital Signs: Vital Signs: Last Vital Signs Temp 96.9 F 03/09/22 11:17 Pulse 44 L 03/09/22 11:17 Resp 17 03/09/22 11:17 BP 112/75 03/09/22 11:17 Pulse Ox 97 03/09/22 11:17 O2 Del Method 03/09/22 11:17 BMI result Body Mass Index 24.5 Const: Other: jaundiced GI: Other: abdomen is protuberant Extrem: Other: no edema Objective Data Labs CBC & Chem 7: 03/09/22 05:34 03/09/22 05:34 Labs: Laboratory Results - last 24 hr 03/09/22 03/09/22 03/09/22 05:34 05:34 05:34 WBC 4.9 RBC 2.66 L Hgb 9.0 L Hct 25.2 L MCV 94.7 MCH 33.8 H MCHC 35.7 RDW 17.5 H Plt Count 36 L MPV 12.4 Absolute Nucleated RBC 0.000 Nucleated RBC % (auto) 0.0 Sodium 136 Potassium 3.3 Chloride 107 Carbon Dioxide 21 L Anion Gap 11 L BUN 14 Creatinine 2.00 H Estim Creat Clear Calc 44.1 Estimated GFR 34 Random Glucose 157 H Calcium 7.8 L Total Bilirubin 18.7 H Direct Bilirubin 10.9 H AST 211 H ALT 56 H Alkaline Phosphatase 238 H Total Protein 6.6 Albumin 2.0 L Procedures Date of Service Date of Service: 03/09/22 Progress Note: A&P Assessment and plan (1) Hepatic encephalopathy: Status: Acute Assessment and Plan: continue xifaxan, steroids Time Spent With Patient Time: Total time spent is greater than 50% in coordination of care (as documented) at patient's floor/unit and/or counseling patient: Quality Stroke Does the patient have a stroke diagnosis?: No VTE Prior VTE?: No VTE Risk Level:: Medical - moderate - high VTE Device Contraindication: N/A - Device Ordered VTE Drug Contraindication: Treatment Not Indicated
--- NOTE | 2022-03-09 14:44 | HO.PM.IMPN ---
Subjective Subjective Date of Service: 03/09/22 Interval History: the patient was seen and evaluated this morning Laying in bed, more alert and interactive Transaminitis started to go down but he still Jaundiced Denies any pain but reported having diarrhea with no bleeding No reported other overnight events. Systemic review: No fever, chills but reports feeling generalized weakness No chest pain, palpitation No shortness of breath or coughing No abdominal pain, nausea or vomiting No urinary symptoms No any rash or wounds Physical Exam Vital Signs: Vital Signs: Last Vital Signs Temp 96.9 F 03/09/22 11:17 Pulse 44 L 03/09/22 11:17 Resp 17 03/09/22 11:17 BP 112/75 03/09/22 11:17 Pulse Ox 97 03/09/22 11:17 O2 Del Method 03/09/22 11:17 BMI result Body Mass Index 24.5 Const: Other: Constitutional : Alert, interactive, jaundiced Neck : Normal inspection, Supple Cardiovascular : RRR, no JVP, no lower extremity edema Respiratory : fair bilateral air entry, no crackles, wheezes or rhonchi Gastrointestinal: soft, lax, Normal bowel sounds, Non tender Skin : Warm, Dry Neurological : Alert with stimulation & oriented to self and place, No focal deficit Objective Data Active Medications Albuterol Sulfate (Albuterol Sulfate 90 Mcg 8 Gm Inhaler) 2 puff INHALE Q4H PRN PRN Reason: Shortness Of Breath Atorvastatin Calcium (Atorvastatin Calcium 10 Mg Tablet) 10 mg PO DAILY [facility] Last Admin: 03/09/22 09:10 Dose: 10 mg Documented By: JUAN DIEGO Cyanocobalamin (Cyanocobalamin (Vitamin B-12) 1,000 Mcg Tablet) 1,000 mcg PO DAILY [facility] Last Admin: 03/09/22 09:10 Dose: 1,000 mcg Documented By: JUAN DIEGO Docusate Sodium (Docusate Sodium 100 Mg Capsule) 100 mg PO DAILY PRN PRN Reason: Constipation Escitalopram Oxalate (Escitalopram Oxalate 20 Mg Tablet) 20 mg PO DAILY [facility] Last Admin: 03/09/22 09:10 Dose: 20 mg Documented By: JUAN DIEGO Folic Acid (Folic Acid 1 Mg Tablet) 1 mg PO DAILY [facility] Last Admin: 03/09/22 09:10 Dose: 1 mg Documented By: JUAN DIEGO Lactulose (Lactulose 20 Gm/30 Ml Solution) 20 gm PO BID [facility] Last Admin: 03/09/22 09:11 Dose: 20 gm Documented By: JUAN DIEGO Levothyroxine Sodium (Levothyroxine Sodium 25 Mcg Tablet) 25 mcg PO DAILY@0600 [facility] Last Admin: 03/09/22 05:57 Dose: 25 mcg Documented By: JASON Magnesium Oxide ([facility]esium [facility]ide 400 Mg Tablet) [facility] Last Admin: 03/09/22 09:11 Dose: 400 mg Documented By: JUAN DIEGO Multivitamins/Vitamin C (Multivitamin Tablet) 1 tab PO DAILY [facility] Last Admin: 03/09/22 09:09 Dose: 1 tab Documented By: JUAN DIEGO Nadolol (Nadolol 40 Mg Tablet) 40 mg PO DAILY [facility]; Protocol Last Admin: 03/09/22 09:55 Dose: Not Given Documented By: JUAN DIEGO Non-Admin Reason: Pt heart rate 47 Omeprazole (Omeprazole 40 Mg Capsule.Dr) 40 mg PO BID@0630,1630 [facility] Last Admin: 03/09/22 05:57 Dose: 40 mg Documented By: JASON Ondansetron HCl (Ondansetron Hcl 4 Mg/2 Ml Vial) 4 mg IVPUSH Q8H PRN PRN Reason: Nausea and Vomiting Last Admin: 03/06/22 19:21 Dose: 4 mg Documented By: TERESA Pharmacy Consult (Consult Rx Perform Med Rec) 1 each MISCELLANE ONCE PRN PRN Reason: Consult order Pharmacy Consult (Consult Rx Etoh Phenob Im/Po) 1 each MISCELLANE ONCE PRN; Protocol PRN Reason: Consult order Phenobarbital (Phenobarbital 30 Mg Tablet) 30 mg PO BID [facility] Stop: 03/09/22 21:01 Last Admin: 03/09/22 09:10 Dose: 30 mg Documented By: JUAN DIEGO Phenobarbital (Phenobarbital 30 Mg Tablet) 30 mg PO DAILY [facility] Stop: 03/11/22 09:01 Potassium Chloride (Potassium Chloride Er 20 Meq Tab.Er.Prt) 20 meq PO DAILY [facility] Last Admin: 03/09/22 09:25 Dose: 20 meq Documented By: JUAN DIEGO Prednisolone Sodium Phosphate (Prednisolone Sodium Phosphate 15 Mg/5 Ml Solution) 40 mg PO DAILY [facility] Last Admin: 03/09/22 09:11 Dose: 40 mg Documented By: JUAN DIEGO Pyridoxine HCl (Pyridoxine Hcl (Vitamin B6) 50 Mg Tablet) 100 mg PO DAILY [facility] Last Admin: 03/09/22 09:09 Dose: 100 mg Documented By: JUAN DIEGO Rifaximin (Rifaximin 550 Mg Tablet) 550 mg PO BID [facility] Last Admin: 03/09/22 09:10 Dose: 550 mg Documented By: JUAN DIEGO Sodium Chloride (0.9 % Sodium Chloride Flush 3 Ml Syringe) 3 ml IVFLUSH QSHIFT [facility] Last Admin: 03/09/22 09:19 Dose: 3 ml Documented By: JUAN DIEGO Thiamine HCl (Thiamine Hcl 100 Mg Tablet) 100 mg PO DAILY [facility] Last Admin: 03/09/22 09:09 Dose: 100 mg Documented By: JUAN DIEGO Labs CBC & Chem 7: 03/09/22 05:34 03/09/22 05:34 Labs: Laboratory Results - last 24 hr 03/09/22 03/09/22 03/09/22 05:34 05:34 05:34 MCV 94.7 MCH 33.8 H MCHC 35.7 RDW 17.5 H Plt Count 36 L MPV 12.4 Absolute Nucleated RBC 0.000 Nucleated RBC % (auto) 0.0 Anion Gap 11 L Estim Creat Clear Calc 44.1 Estimated GFR 34 Random Glucose 157 H Calcium 7.8 L Total Bilirubin 18.7 H Direct Bilirubin 10.9 H AST 211 H ALT 56 H Alkaline Phosphatase 238 H Total Protein 6.6 Albumin 2.0 L Assessment and Plan (1) Hepatic encephalopathy: Status: Acute (2) Alcohol withdrawal: Status: Acute (3) Alcoholic hepatitis: Status: Acute (4) Acute blood loss anemia: Status: Acute Plan 57M with pmh alcohol dependence with cirrhosis presented with diarrhea and blood in stool acute blood loss symptomatic anemia due to gi bleed in patient with alcohol cirrhosis Bloody tinge to small amount Hemoglobin stable at 9 Continue ppi Received total of 3 units of blood GI input appreciated, diverticular vs hemorrhoids, hold on endoscopy, IV vitamin K, rifaximin Stool studies 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 supplement hypothyroid synthroid narayan Stable at 1.9 Hold fluids and monitor BMP Hypokalemia Potassium of 2.9 Give supplement and monitor Thrombocytopenia Not due to sepsis Stable, chronic, of likely from chronic liver disease and alcoholism dvt prophylaxis SCDs due to gi bleed and thrombocytopenia reason for continued hospitalization: Alcoholic hepatitis, alcohol withdrawal, acute kidney injury in hypomagnesemia requiring repeat blood work and close monitoring pending safe discharge plan Quality Stroke Does the patient have a stroke diagnosis?: No VTE Prior VTE?: No VTE Risk Level:: Medical - moderate - high VTE Device Contraindication: N/A - Device Ordered VTE Drug Contraindication: Treatment Not Indicated
[2022-03-09 15:20] VITALS: BP 115/62; PULSE 46; RESP 16; TEMP 36.4; O2SAT 96
[2022-03-09 19:09] VITALS: BP 107/69; PULSE 46; RESP 16; TEMP 36.1; O2SAT 95
[2022-03-09 23:47] VITALS: BP 111/64; PULSE 47; RESP 15; TEMP 36.9; O2SAT 97
[2022-03-10 03:18] VITALS: BP 106/67; PULSE 49; RESP 15; TEMP 36.2; O2SAT 95
[2022-03-10] MEDS: Levothyroxine Sodium 25 MCG TABLET PO (06:13)
[2022-03-10] MEDS: Omeprazole 40 MG CAPSULE.DR PO ×2 (06:13→16:47)
[2022-03-10 06:17] LABS: INTERNATIONAL NORM RATIO 1.8 (0.9-1.1); Prothrombin Time 21.4 SEC (10.0-13.1)
[2022-03-10 06:36] LABS: Anion Gap 10 (12-20); Blood Urea Nitrogen 13 mg/dL (9-16); Calcium 7.9 mg/dL (8.4-10.2); Carbon Dioxide 21 mmol/L (22-29); Chloride 109 mmol/L (96-108); Estimated Glomerular Filt Rate 38; Glucose Random 102 mg/dL (60-115); Potassium 3.3 mmol/L (3.3-5.1); Sodium 137 mmol/L (135-145)
[2022-03-10 06:41] LABS: Alanine Aminotransferase 59 U/L (0-40); Albumin Level 1.9 g/dL (3.5-5.0); Alkaline Phosphatase 237 U/L (39-117); Aspartate Amino Transferase 197 U/L (5-37); Bilirubin Direct 10.9 mg/dL (0.0-0.5); Bilirubin Total 18.6 mg/dL (0.0-1.0); Total Protein 6.4 g/dL (6.5-8.0)
[2022-03-10 08:00] VITALS: BP 106/60; PULSE 97; RESP 16; TEMP 36.1; O2SAT 97
[2022-03-10] MEDS: Atorvastatin Calcium 10 MG TABLET PO (09:40)
[2022-03-10] MEDS: Folic Acid 1 MG TABLET PO (09:40)
[2022-03-10] MEDS: Multivitamin TABLET 1 TAB PO (09:40)
[2022-03-10] MEDS: Escitalopram Oxalate 20 MG TABLET PO (09:41)
[2022-03-10] MEDS: PHENobarbitaL 30 MG TABLET PO (09:42)
[2022-03-10] MEDS: Magnesium Oxide 400 MG TABLET PO ×2 (09:42→16:47)
[2022-03-10] MEDS: rifAXIMin 550 MG TABLET PO ×2 (09:42→19:59)
[2022-03-10] MEDS: Cyanocobalamin (Vitamin B-12) 1,000 MCG TABLET 1000 MCG PO (09:43)
[2022-03-10] MEDS: Thiamine HCL 100 MG TABLET PO (09:43)
[2022-03-10] MEDS: Pyridoxine HCl (Vitamin B6) 50 MG TABLET 100 MG PO (09:43)
[2022-03-10] MEDS: prednisoLONE sodium phosphate 15 MG/5 ML SOLUTION 40 MG PO (09:44)
[2022-03-10] MEDS: Potassium Chloride ER 20 MEQ TAB.ER.PRT PO (09:44)
[2022-03-10] MEDS: 0.9 % Sodium Chloride Flush 3 ML SYRINGE IVFLUSH ×3 (09:45→19:59)
[2022-03-10 12:00] VITALS: BP 111/64; PULSE 45; RESP 15; TEMP 36.4; O2SAT 95
--- NOTE | 2022-03-10 13:27 | P.PNIM_ITS ---
Subjective Subjective Date of Service: 03/10/22 Interval History: The patient was seen and evaluated this morning more alert and interactive Transaminitis stable but he still Jaundiced Denies any pain but reported having diarrhea with no bleeding No reported other overnight events. Systemic review: No fever, chills but reports feeling generalized weakness No chest pain, palpitation No shortness of breath or coughing No abdominal pain, nausea or vomiting No urinary symptoms No any rash or wounds Physical Exam Vital Signs: Vital Signs: Last Vital Signs Temp 97.6 F 03/10/22 12:00 Pulse 45 L 03/10/22 12:00 Resp 15 03/10/22 12:00 BP 111/64 03/10/22 12:00 Pulse Ox 95 03/10/22 12:00 O2 Del Method 03/10/22 12:00 BMI result Body Mass Index 24.5 Const: Other: Constitutional : Alert, interactive, jaundiced Neck : Normal inspection, Supple Cardiovascular : RRR, no JVP, no lower extremity edema Respiratory : fair bilateral air entry, no crackles, wheezes or rhonchi Gastrointestinal: soft, lax, Normal bowel sounds, Non tender Skin : Warm, Dry Neurological : Alert with stimulation & oriented to self and place, No focal deficit Objective Data Active Medications Albuterol Sulfate (Albuterol Sulfate 90 Mcg 8 Gm Inhaler) 2 puff INHALE Q4H PRN PRN Reason: Shortness Of Breath Atorvastatin Calcium (Atorvastatin Calcium 10 Mg Tablet) 10 mg PO DAILY [facility] Last Admin: 03/10/22 09:40 Dose: 10 mg Documented By: ALEX Cyanocobalamin (Cyanocobalamin (Vitamin B-12) 1,000 Mcg Tablet) 1,000 mcg PO DAILY [facility] Last Admin: 03/10/22 09:43 Dose: 1,000 mcg Documented By: ALEX Docusate Sodium (Docusate Sodium 100 Mg Capsule) 100 mg PO DAILY PRN PRN Reason: Constipation Escitalopram Oxalate (Escitalopram Oxalate 20 Mg Tablet) 20 mg PO DAILY [facility] Last Admin: 03/10/22 09:41 Dose: 20 mg Documented By: ALEX Folic Acid (Folic Acid 1 Mg Tablet) 1 mg PO DAILY [facility] Last Admin: 03/10/22 09:40 Dose: 1 mg Documented By: ALEX Lactulose (Lactulose 20 Gm/30 Ml Solution) 20 gm PO BID [facility] Last Admin: 03/09/22 09:11 Dose: 20 gm Documented By: JUAN DIEGO Levothyroxine Sodium (Levothyroxine Sodium 25 Mcg Tablet) 25 mcg PO DAILY@0600 [facility] Last Admin: 03/10/22 06:13 Dose: 25 mcg Documented By: PETRONA Magnesium Oxide (Magnesium Oxide 400 Mg Tablet) [facility] Last Admin: 03/10/22 09:42 Dose: 400 mg Documented By: ALEX Multivitamins/Vitamin C (Multivitamin Tablet) 1 tab PO DAILY [facility] Last Admin: 03/10/22 09:40 Dose: 1 tab Documented By: ALEX Nadolol (Nadolol 40 Mg Tablet) 40 mg PO DAILY [facility]; Protocol Last Admin: 03/10/22 09:41 Dose: 40 mg Documented By: ALEX Omeprazole (Omeprazole 40 Mg Capsule.Dr) 40 mg PO BID@0630,1630 [facility] Last Admin: 03/10/22 06:13 Dose: 40 mg Documented By: PETRONA Ondansetron HCl (Ondansetron Hcl 4 Mg/2 Ml Vial) 4 mg IVPUSH Q8H PRN PRN Reason: Nausea and Vomiting Last Admin: 03/06/22 19:21 Dose: 4 mg Documented By: TERESA Pharmacy Consult (Consult Rx Perform Med Rec) 1 each MISCELLANE ONCE PRN PRN Reason: Consult order Pharmacy Consult (Consult Rx Etoh Phenob Im/Po) 1 each MISCELLANE ONCE PRN; Protocol PRN Reason: Consult order Phenobarbital (Phenobarbital 30 Mg Tablet) 30 mg PO DAILY [facility] Stop: 03/11/22 09:01 Last Admin: 03/10/22 09:42 Dose: 30 mg Documented By: ALEX Potassium Chloride (Potassium Chloride Er 20 Meq Tab.Er.Prt) 20 meq PO DAILY [facility] Last Admin: 03/10/22 09:44 Dose: 20 meq Documented By: ALEX Prednisolone Sodium Phosphate (Prednisolone Sodium Phosphate 15 Mg/5 Ml Solution) 40 mg PO DAILY [facility] Last Admin: 03/10/22 09:44 Dose: 40 mg Documented By: ALEX Pyridoxine HCl (Pyridoxine Hcl (Vitamin B6) 50 Mg Tablet) 100 mg PO DAILY [facility] Last Admin: 03/10/22 09:43 Dose: 100 mg Documented By: ALEX Rifaximin (Rifaximin 550 Mg Tablet) 550 mg PO BID [facility] Last Admin: 03/10/22 09:42 Dose: 550 mg Documented By: ALEX Sodium Chloride (0.9 % Sodium Chloride Flush 3 Ml Syringe) 3 ml IVFLUSH QSHIFT [facility] Last Admin: 03/10/22 09:45 Dose: 3 ml Documented By: ALEX Thiamine HCl (Thiamine Hcl 100 Mg Tablet) 100 mg PO DAILY [facility] Last Admin: 03/10/22 09:43 Dose: 100 mg Documented By: ALEX Labs CBC & Chem 7: 03/09/22 05:34 03/10/22 05:26 Labs: Laboratory Results - last 24 hr 03/10/22 03/10/22 03/10/22 05:26 05:26 05:26 PT 21.4 H INR 1.8 H Anion Gap 10 L Estim Creat Clear Calc 48.0 Estimated GFR 38 Random Glucose 102 D Calcium 7.9 L Total Bilirubin 18.6 H Direct Bilirubin 10.9 H AST 197 H ALT 59 H Alkaline Phosphatase 237 H Total Protein 6.4 L Albumin 1.9 L Assessment and Plan (1) Alcoholic hepatitis: Status: Acute (2) Hepatic encephalopathy: Status: Acute (3) Alcohol withdrawal: Status: Acute (4) Acute blood loss anemia: Status: Acute Plan 57M with pmh alcohol dependence with cirrhosis presented with diarrhea and blood in stool acute blood loss symptomatic anemia due to gi bleed in patient with alcohol cirrhosis Hemoglobin stable at 9 Continue ppi Received total of 3 units of blood GI input appreciated, diverticular vs hemorrhoids, hold on endoscopy Stool studies 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 with pancytopenia and acute alcoholic hepatitis and elevated INR Mentation improving INR 1.8 Continue rifaximin for encephalopathy Hold lactulose for diarrhea Vitamin K given, follow INR Follow LFT Alcoholic hepatitis Transaminitis plateaued GI input appreciated, steroid therapy Prednisolone 40 mg daily (started 03/08) Monitor LFT PHysical deconditioning seen by PT, recommended SNF placement alcohol dependence with withdrawal Advised complete abstinence from alcohol phenobarb protocol, ciwa Hypomagnesemia Replacement given p.o. supplement hypothyroid synthroid narayan Stable at 1.8 monitor BMP Hypokalemia resolved Thrombocytopenia Not due to sepsis Stable, chronic, of likely from chronic liver disease and alcoholism dvt prophylaxis SCDs due to gi bleed and thrombocytopenia reason for continued hospitalization: Alcoholic hepatitis, physical deconditioning requiring repeat blood work and close monitoring pending safe discharge plan Quality Stroke Does the patient have a stroke diagnosis?: No VTE Prior VTE?: No VTE Risk Level:: Medical - moderate - high VTE Device Contraindication: N/A - Device Ordered VTE Drug Contraindication: Treatment Not Indicated
[2022-03-10 15:08] VITALS: BP 119/67; PULSE 51; RESP 16; TEMP 36.4; O2SAT 94
[2022-03-10 15:08] LABS: Leukocytes Stool Qualitative FEW: < 2/OIF (NEGATIVE)
[2022-03-10 19:14] VITALS: BP 110/73; PULSE 48; RESP 18; TEMP 36.3; O2SAT 96
[2022-03-10 23:50] VITALS: BP 119/68; PULSE 50; RESP 17; TEMP 36.7; O2SAT 98
[2022-03-11 03:12] VITALS: BP 106/64; PULSE 53; RESP 17; TEMP 36.4; O2SAT 95
[2022-03-11] MEDS: Omeprazole 40 MG CAPSULE.DR PO ×2 (06:12→15:45)
[2022-03-11] MEDS: Levothyroxine Sodium 25 MCG TABLET PO (06:12)
[2022-03-11 06:21] LABS: INTERNATIONAL NORM RATIO 1.8 (0.9-1.1); Prothrombin Time 21.4 SEC (10.0-13.1)
[2022-03-11 06:30] LABS: Anion Gap 12 (12-20); Blood Urea Nitrogen 17 mg/dL (9-16); Calcium 7.9 mg/dL (8.4-10.2); Carbon Dioxide 20 mmol/L (22-29); Chloride 108 mmol/L (96-108); Creatinine Clr Calc Pharmacy 47.7; Estimated Glomerular Filt Rate 38; Glucose Random 107 mg/dL (60-115); Potassium 3.6 mmol/L (3.3-5.1); Sodium 136 mmol/L (135-145)
[2022-03-11 06:34] LABS: Alanine Aminotransferase 68 U/L (0-40); Alkaline Phosphatase 249 U/L (39-117); Aspartate Amino Transferase 208 U/L (5-37); Bilirubin Direct 11.5 mg/dL (0.0-0.5); Bilirubin Total 19.1 mg/dL (0.0-1.0); Total Protein 6.6 g/dL (6.5-8.0)
[2022-03-11 06:35] LABS: Hematocrit 23.5 % (42.0-52.0); Hemoglobin 8.3 g/dl (14.0-18.0); Mean Corpuscular HGB Conc 35.3 g/dl (31.0-36.0); Mean Corpuscular Hemoglobin 33.3 pg (27.0-33.0); Mean Corpuscular Volume 94.4 fL (80.0-98.0); Mean Platelet Volume 12.1 fL (9.4-12.4); Platelet Count 44 X10*3/uL (160-400); Red Blood Count 2.49 X10*6/uL (4.60-5.80); Red Cell Distribution Width 18.2 % (11.0-16.0); White Blood Count 5.3 X10*3/uL (4.8-10.8)
[2022-03-11 07:10] LABS: Adenovirus F 40/41 Not Detected (Not Detect.); Astrovirus Not Detected (Not Detect.); Cryptosporidium Not Detected (Not Detect.); Cyclospora cayetanensis Not Detected (Not Detect.); E. coli EAEC Not Detected (Not Detect.); E. coli EPEC Not Detected (Not Detect.); E. coli ETEC Not Detected (Not Detect.); E. coli STEC Not Detected (Not Detect.); Entamoeba histolytica Not Detected (Not Detect.); Giardia lamblia Not Detected (Not Detect.); Norovirus GI/GII Not Detected (Not Detect.); Plesiomonas shigelloides Not Detected (Not Detect.); Rotavirus A Not Detected (Not Detect.); Salmonella Not Detected (Not Detect.); Sapovirus Not Detected (Not Detect.); Shigella sp./EIEC Not Detected (Not Detect.); Vibrio Not Detected (Not Detect.); Vibrio Cholerae Not Detected (Not Detect.)
[2022-03-11 07:37] VITALS: BP 101/59; PULSE 50; RESP 18; TEMP 36.4; O2SAT 96
[2022-03-11] MEDS: Potassium Chloride ER 20 MEQ TAB.ER.PRT PO (09:26)
[2022-03-11 09:27] LABS: Campylobacter Not Detected (Not Detect.)
[2022-03-11] MEDS: Escitalopram Oxalate 20 MG TABLET PO (09:27)
[2022-03-11 09:28] LABS: Yersinia enterocolitica Detected (Not Detect.)
[2022-03-11] MEDS: Folic Acid 1 MG TABLET PO (09:28)
[2022-03-11] MEDS: Cyanocobalamin (Vitamin B-12) 1,000 MCG TABLET 1000 MCG PO (09:28)
[2022-03-11] MEDS: Magnesium Oxide 400 MG TABLET PO ×2 (09:28→17:04)
[2022-03-11] MEDS: PHENobarbitaL 30 MG TABLET PO (09:29)
[2022-03-11] MEDS: Thiamine HCL 100 MG TABLET PO (09:29)
[2022-03-11] MEDS: rifAXIMin 550 MG TABLET PO ×2 (09:30→21:13)
[2022-03-11] MEDS: Atorvastatin Calcium 10 MG TABLET PO (09:30)
[2022-03-11] MEDS: Multivitamin TABLET 1 TAB PO (09:30)
[2022-03-11] MEDS: Lactulose 20 GM/30 ML SOLUTION PO ×3 (09:31→21:14)
[2022-03-11] MEDS: prednisoLONE sodium phosphate 15 MG/5 ML SOLUTION 40 MG PO (09:32)
[2022-03-11] MEDS: Pyridoxine HCl (Vitamin B6) 50 MG TABLET 100 MG PO (09:57)
[2022-03-11] MEDS: 0.9 % Sodium Chloride Flush 3 ML SYRINGE IVFLUSH ×3 (09:58→21:16)
--- NOTE | 2022-03-11 10:39 | P.PNIM_ITS ---
Subjective Subjective Date of Service: 03/11/22 Interval History: The patient was seen and evaluated this morning alert upon stimulation but still lethargic and laying down in the bed Transaminitis trending up but he still Jaundiced Denies any pain but reported having diarrhea with no bleeding No reported other overnight events. Systemic review: No fever, chills but reports feeling generalized weakness No chest pain, palpitation No shortness of breath or coughing No abdominal pain, nausea or vomiting No urinary symptoms No any rash or wounds Physical Exam Vital Signs: Vital Signs: Last Vital Signs Temp 97.5 F 03/11/22 07:37 Pulse 50 03/11/22 07:37 Resp 18 03/11/22 07:37 BP 101/59 L 03/11/22 07:37 Pulse Ox 96 03/11/22 07:37 O2 Del Method 03/11/22 07:37 BMI result Body Mass Index 24.5 Const: Other: Constitutional : Alert with stimulation, looks tired , jaundiced Neck : Normal inspection, Supple Cardiovascular : RRR, no JVP, no lower extremity edema Respiratory : fair bilateral air entry, no crackles, wheezes or rhonchi Gastrointestinal: soft, lax, Normal bowel sounds, Non tender Skin : Warm, Dry Neurological : Alert with stimulation & oriented to self and place, No focal deficit Objective Data Active Medications Albuterol Sulfate (Albuterol Sulfate 90 Mcg 8 Gm Inhaler) 2 puff INHALE Q4H PRN PRN Reason: Shortness Of Breath Atorvastatin Calcium (Atorvastatin Calcium 10 Mg Tablet) 10 mg PO DAILY [facility] Last Admin: 03/11/22 09:30 Dose: 10 mg Documented By: ALEX Cyanocobalamin (Cyanocobalamin (Vitamin B-12) 1,000 Mcg Tablet) 1,000 mcg PO DAILY [facility] Last Admin: 03/11/22 09:28 Dose: 1,000 mcg Documented By: ALEX Docusate Sodium (Docusate Sodium 100 Mg Capsule) 100 mg PO DAILY PRN PRN Reason: Constipation Escitalopram Oxalate (Escitalopram Oxalate 20 Mg Tablet) 20 mg PO DAILY [facility] Last Admin: 03/11/22 09:27 Dose: 20 mg Documented By: ALEX Folic Acid (Folic Acid 1 Mg Tablet) 1 mg PO DAILY [facility] Last Admin: 03/11/22 09:28 Dose: 1 mg Documented By: ALEX Lactulose (Lactulose 20 Gm/30 Ml Solution) 20 gm PO BID [facility] Last Admin: 03/11/22 09:31 Dose: 20 gm Documented By: ALEX Levothyroxine Sodium (Levothyroxine Sodium 25 Mcg Tablet) 25 mcg PO DAILY@0600 [facility] Last Admin: 03/11/22 06:12 Dose: 25 mcg Documented By: PETRONA Magnesium Oxide (Magnesium Oxide 400 Mg Tablet) 400 mg PO BIDPC [facility] Last Admin: 03/11/22 09:28 Dose: 400 mg Documented By: ALEX Multivitamins/Vitamin C (Multivitamin Tablet) 1 tab PO DAILY [facility] Last Admin: 03/11/22 09:30 Dose: 1 tab Documented By: ALEX Nadolol (Nadolol 40 Mg Tablet) 40 mg PO DAILY [facility]; Protocol Last Admin: 03/11/22 09:29 Dose: 40 mg Documented By: ALEX Omeprazole (Omeprazole 40 Mg Capsule.Dr) 40 mg PO BID@0630,1630 [facility] Last Admin: 03/11/22 06:12 Dose: 40 mg Documented By: PETRONA Ondansetron HCl (Ondansetron Hcl 4 Mg/2 Ml Vial) 4 mg IVPUSH Q8H PRN PRN Reason: Nausea and Vomiting Last Admin: 03/06/22 19:21 Dose: 4 mg Documented By: TERESA Pharmacy Consult (Consult Rx Perform Med Rec) 1 each MISCELLANE ONCE PRN PRN Reason: Consult order Pharmacy Consult (Consult Rx Etoh Phenob Im/Po) 1 each MISCELLANE ONCE PRN; Protocol PRN Reason: Consult order Potassium Chloride (Potassium Chloride Er 20 Meq Tab.Er.Prt) 20 meq PO DAILY [facility] Last Admin: 03/11/22 09:26 Dose: 20 meq Documented By: ALEX Prednisolone Sodium Phosphate (Prednisolone Sodium Phosphate 15 Mg/5 Ml Solution) 40 mg PO DAILY [facility] Last Admin: 03/11/22 09:32 Dose: 40 mg Documented By: ALEX Comments: 13.33mls given Pyridoxine HCl (Pyridoxine Hcl (Vitamin B6) 50 Mg Tablet) 100 mg PO DAILY [facility] Last Admin: 03/11/22 09:57 Dose: 100 mg Documented By: ALEX Rifaximin (Rifaximin 550 Mg Tablet) 550 mg PO BID [facility] Last Admin: 03/11/22 09:30 Dose: 550 mg Documented By: ALEX Sodium Chloride (0.9 % Sodium Chloride Flush 3 Ml Syringe) 3 ml IVFLUSH QSHIFT [facility] Last Admin: 03/11/22 09:58 Dose: 3 ml Documented By: ALEX Thiamine HCl (Thiamine Hcl 100 Mg Tablet) 100 mg PO DAILY [facility] Last Admin: 03/11/22 09:29 Dose: 100 mg Documented By: ALEX Labs CBC & Chem 7: 03/11/22 05:59 03/11/22 05:59 Labs: Laboratory Results - last 24 hr 03/10/22 03/10/22 03/11/22 14:03 14:03 05:59 MCV 94.4 MCH 33.3 H MCHC 35.3 RDW 18.2 H Plt Count 44 L MPV 12.1 Absolute Nucleated RBC 0.000 Nucleated RBC % (auto) 0.0 PT INR Anion Gap Estim Creat Clear Calc Estimated GFR Random Glucose Calcium Total Bilirubin Direct Bilirubin AST ALT Alkaline Phosphatase Total Protein Albumin Stool Leukocytes, Qual FEW: < 2/OIF Stl C. cayetanensis PCR Not Detected Stool Rotavirus A PCR Not Detected Stl Adenov F 40/41 PCR Not Detected Stool Astrovirus (PCR) Not Detected Stool Campylobacter PCR Not Detected Stool Cryptosporidium PCR Not Detected Stl Sh Tox Pr E STEC PCR Not Detected Stool E coli O157 PCR Not applicable Stl Enterotoxigenic E PCR Not Detected Stool EPEC (PCR) Not Detected Stool EAEC (PCR) Not Detected Stl E. histolytica PCR Not Detected Stool Giardia Lamblia PCR Not Detected Stl P. shigelloides PCR Not Detected Stool Salmonella PCR Not Detected Stool Sapovirus (PCR) Not Detected Stl Shigella/EIEC PCR Not Detected St Y.enterocolitica PCR Detected A Stool Vibrio (PCR) Not Detected Stl Vibrio cholerae PCR Not Detected Stl Norovirus GI/GII PCR Not Detected 03/11/22 03/11/22 03/11/22 05:59 05:59 05:59 MCV MCH MCHC RDW Plt Count MPV Absolute Nucleated RBC Nucleated RBC % (auto) PT 21.4 H INR 1.8 H Anion Gap 12 Estim Creat Clear Calc 47.7 Estimated GFR 38 Random Glucose 107 Calcium 7.9 L Total Bilirubin 19.1 H Direct Bilirubin 11.5 H AST 208 H ALT 68 H Alkaline Phosphatase 249 H Total Protein 6.6 Albumin 2.0 L Stool Leukocytes, Qual Stl C. cayetanensis PCR Stool Rotavirus A PCR Stl Adenov F 40/41 PCR Stool Astrovirus (PCR) Stool Campylobacter PCR Stool Cryptosporidium PCR Stl Sh Tox Pr E STEC PCR Stool E coli O157 PCR Stl Enterotoxigenic E PCR Stool EPEC (PCR) Stool EAEC (PCR) Stl E. histolytica PCR Stool Giardia Lamblia PCR Stl P. shigelloides PCR Stool Salmonella PCR Stool Sapovirus (PCR) Stl Shigella/EIEC PCR St Y.enterocolitica PCR Stool Vibrio (PCR) Stl Vibrio cholerae PCR Stl Norovirus GI/GII PCR Assessment and Plan (1) Alcoholic hepatitis: Status: Acute (2) Hepatic encephalopathy: Status: Acute Plan 57M with pmh alcohol dependence with cirrhosis presented with diarrhea and blood in stool acute blood loss symptomatic anemia due to gi bleed in patient with alcohol cirrhosis Hemoglobin stable at 9 Continue ppi Received total of 3 units of blood GI input appreciated, diverticular vs hemorrhoids, hold on endoscopy Stool studies showing Y.Enterocolitica , no more diarrhea now 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 with pancytopenia and acute alcoholic hepatitis and elevated INR Mentation improving INR 1.8 Continue rifaximin for encephalopathy, restart lactulose Hold lactulose for diarrhea Vitamin K given, follow INR Follow LFT Alcoholic hepatitis Transaminitis plateaued GI input appreciated, steroid therapy Prednisolone 40 mg daily for 4 weeks (started 03/08), to follow w GI as OP Monitor LFT PHysical deconditioning seen by PT, recommended SNF placement alcohol dependence with withdrawal Advised complete abstinence from alcohol phenobarb protocol, ciwa Hypomagnesemia Replacement given p.o. supplement hypothyroid synthroid narayan Stable at 1.8 monitor BMP Hypokalemia resolved Thrombocytopenia Not due to sepsis Stable, chronic, of likely from chronic liver disease and alcoholism dvt prophylaxis SCDs due to gi bleed and thrombocytopenia reason for continued hospitalization: Alcoholic hepatitis, physical deconditioning requiring repeat blood work and close monitoring pending safe discharge plan Quality Stroke Does the patient have a stroke diagnosis?: No VTE Prior VTE?: No VTE Risk Level:: Medical - moderate - high VTE Device Contraindication: N/A - Device Ordered VTE Drug Contraindication: Treatment Not Indicated
[2022-03-11 11:33] VITALS: BP 117/57; PULSE 50; RESP 18; TEMP 36.6; O2SAT 96
[2022-03-11] MEDS: Zinc Sulfate 220 MG CAPSULE PO ×2 (12:15→21:13)
[2022-03-11 12:37] LABS: Ammonia 98 umol/L (13-55)
[2022-03-11 15:16] VITALS: BP 106/56; PULSE 48; RESP 18; TEMP 37; O2SAT 96
[2022-03-11] MEDS: Sulfamethox/Trimeth 800/160 TABLET 1 TAB PO (17:04)
[2022-03-11 19:11] VITALS: BP 104/63; PULSE 49; RESP 17; TEMP 36.4; O2SAT 96
[2022-03-11 23:55] VITALS: BP 103/55; PULSE 50; RESP 17; TEMP 36.5; O2SAT 94
[2022-03-12 03:44] VITALS: BP 116/65; PULSE 53; RESP 16; TEMP 36.1; O2SAT 97
[2022-03-12 06:10] LABS: Mean Corpuscular Volume 94.3 fL (80.0-98.0); PLT CLUMP 1
[2022-03-12 06:12] LABS: Hematocrit 24.8 % (42.0-52.0); Hemoglobin 8.9 g/dl (14.0-18.0); Mean Corpuscular HGB Conc 35.9 g/dl (31.0-36.0); Mean Corpuscular Hemoglobin 33.8 pg (27.0-33.0); Mean Platelet Volume 11.6 fL (9.4-12.4); Red Blood Count 2.63 X10*6/uL (4.60-5.80); Red Cell Distribution Width 18.5 % (11.0-16.0)
[2022-03-12 06:14] LABS: Platelet Count 55 X10*3/uL (160-400); White Blood Count 6.1 X10*3/uL (4.8-10.8)
[2022-03-12 06:15] LABS: INTERNATIONAL NORM RATIO 1.7 (0.9-1.1); Prothrombin Time 19.4 SEC (10.0-13.1)
[2022-03-12] MEDS: Sulfamethox/Trimeth 800/160 TABLET 1 TAB PO ×2 (06:20→17:11)
[2022-03-12] MEDS: Levothyroxine Sodium 25 MCG TABLET PO (06:20)
[2022-03-12] MEDS: Omeprazole 40 MG CAPSULE.DR PO ×2 (06:20→17:11)
[2022-03-12 06:25] LABS: Alanine Aminotransferase 70 U/L (0-40); Albumin Level 2.2 g/dL (3.5-5.0); Alkaline Phosphatase 242 U/L (39-117); Anion Gap 13 (12-20); Aspartate Amino Transferase 205 U/L (5-37); Blood Urea Nitrogen 21 mg/dL (9-16); Calcium 8.4 mg/dL (8.4-10.2); Carbon Dioxide 19 mmol/L (22-29); Chloride 109 mmol/L (96-108); Estimated Glomerular Filt Rate 37; Glucose Random 81 mg/dL (60-115); Potassium 3.5 mmol/L (3.3-5.1); Sodium 137 mmol/L (135-145)
[2022-03-12 06:42] LABS: Bilirubin Total 20.8 mg/dL (0.0-1.0)
[2022-03-12 07:30] VITALS: BP 106/63; PULSE 52; RESP 15; TEMP 36.9; O2SAT 96
[2022-03-12] MEDS: Atorvastatin Calcium 10 MG TABLET PO (09:10)
[2022-03-12] MEDS: rifAXIMin 550 MG TABLET PO ×2 (09:10→20:37)
[2022-03-12] MEDS: Cyanocobalamin (Vitamin B-12) 1,000 MCG TABLET 1000 MCG PO (09:10)
[2022-03-12] MEDS: Zinc Sulfate 220 MG CAPSULE PO ×2 (09:10→20:37)
[2022-03-12] MEDS: Multivitamin TABLET 1 TAB PO (09:10)
[2022-03-12] MEDS: Potassium Chloride ER 20 MEQ TAB.ER.PRT PO (09:10)
[2022-03-12] MEDS: Magnesium Oxide 400 MG TABLET PO ×2 (09:10→17:11)
[2022-03-12] MEDS: prednisoLONE sodium phosphate 15 MG/5 ML SOLUTION 40 MG PO (09:10)
[2022-03-12] MEDS: Thiamine HCL 100 MG TABLET PO (09:11)
[2022-03-12] MEDS: Escitalopram Oxalate 20 MG TABLET PO (09:11)
[2022-03-12] MEDS: 0.9 % Sodium Chloride Flush 3 ML SYRINGE IVFLUSH ×3 (09:11→20:37)
[2022-03-12] MEDS: Folic Acid 1 MG TABLET PO (09:11)
[2022-03-12] MEDS: Pyridoxine HCl (Vitamin B6) 50 MG TABLET 100 MG PO (09:11)
[2022-03-12 11:28] VITALS: BP 121/66; PULSE 46; RESP 16; TEMP 36.8; O2SAT 96
--- NOTE | 2022-03-12 12:52 | MHC.CM.PN ---
Per MD round, pt is not med ready for d/c. PT rec- STR. Meet with pt and mother @ bedside re: plan for STR when med stable. Referrals placed in [facility]. CM will continue to follow for d/c planning needs.
--- NOTE | 2022-03-12 13:10 | HO.PM.IMPN ---
Subjective Subjective Date of Service: 03/12/22 Interval History: The patient was seen and evaluated this morning Transaminitis trending up alert upon stimulation but still lethargic and laying down in the bed Denies any pain but reported having diarrhea with no bleeding No reported other overnight events. Systemic review: No fever, chills but reports feeling generalized weakness No chest pain, palpitation No shortness of breath or coughing No abdominal pain, nausea or vomiting No urinary symptoms Jaundiced Physical Exam Vital Signs: Vital Signs: Last Vital Signs Temp 98.2 F 03/12/22 11:28 Pulse 46 L 03/12/22 11:28 Resp 16 03/12/22 11:28 BP 121/66 03/12/22 11:28 Pulse Ox 96 03/12/22 11:28 O2 Del Method 03/12/22 07:30 BMI result Body Mass Index 24.5 Const: Other: Constitutional : Alert with stimulation, looks tired , jaundiced Neck : Normal inspection, Supple Cardiovascular : RRR, no JVP, no lower extremity edema Respiratory : fair bilateral air entry, no crackles, wheezes or rhonchi Gastrointestinal: soft, lax, Normal bowel sounds, mildly distended, Non tender Skin : Warm, Dry Neurological : Alert with stimulation & oriented to self and place, No focal deficit Objective Data Active Medications Albuterol Sulfate (Albuterol Sulfate 90 Mcg 8 Gm Inhaler) 2 puff INHALE Q4H PRN PRN Reason: Shortness Of Breath Atorvastatin Calcium (Atorvastatin Calcium 10 Mg Tablet) 10 mg PO DAILY [facility] Last Admin: 03/12/22 09:10 Dose: 10 mg Documented By: KYLER Cyanocobalamin (Cyanocobalamin (Vitamin B-12) 1,000 Mcg Tablet) 1,000 mcg PO DAILY [facility] Last Admin: 03/12/22 09:10 Dose: 1,000 mcg Documented By: KYLER Docusate Sodium (Docusate Sodium 100 Mg Capsule) 100 mg PO DAILY PRN PRN Reason: Constipation Escitalopram Oxalate (Escitalopram Oxalate 20 Mg Tablet) 20 mg PO DAILY [facility] Last Admin: 03/12/22 09:11 Dose: 20 mg Documented By: KYLER Folic Acid (Folic Acid 1 Mg Tablet) 1 mg PO DAILY [facility] Last Admin: 03/12/22 09:11 Dose: 1 mg Documented By: KYLER Lactulose (Lactulose 20 Gm/30 Ml Solution) 20 gm PO TID [facility] Last Admin: 03/12/22 09:11 Dose: Not Given Documented By: KYLER Non-Admin Reason: Patient Refused Levothyroxine Sodium (Levothyroxine Sodium 25 Mcg Tablet) 25 mcg PO DAILY@0600 [facility] Last Admin: 03/12/22 06:20 Dose: 25 mcg Documented By: PETRONA Magnesium Oxide (Magnesium Oxide 400 Mg Tablet) 400 mg PO BIDPC [facility] Last Admin: 03/12/22 09:10 Dose: 400 mg Documented By: KYLER Multivitamins/Vitamin C (Multivitamin Tablet) 1 tab PO DAILY [facility] Last Admin: 03/12/22 09:10 Dose: 1 tab Documented By: KYLER Nadolol (Nadolol 40 Mg Tablet) 40 mg PO DAILY [facility]; Protocol Last Admin: 03/12/22 08:57 Dose: Not Given Documented By: KYLER Non-Admin Reason: Decreased Heart Rate Omeprazole (Omeprazole 40 Mg Capsule.Dr) 40 mg PO BID@0630,1630 [facility] Last Admin: 03/12/22 06:20 Dose: 40 mg Documented By: PETRONA Ondansetron HCl (Ondansetron Hcl 4 Mg/2 Ml Vial) 4 mg IVPUSH Q8H PRN PRN Reason: Nausea and Vomiting Last Admin: 03/06/22 19:21 Dose: 4 mg Documented By: TERESA Pharmacy Consult (Consult Rx Perform Med Rec) 1 each MISCELLANE ONCE PRN PRN Reason: Consult order Pharmacy Consult (Consult Rx Etoh Phenob Im/Po) 1 each MISCELLANE ONCE PRN; Protocol PRN Reason: Consult order Potassium Chloride (Potassium Chloride Er 20 Meq Tab.Er.Prt) 20 meq PO DAILY [facility] Last Admin: 03/12/22 09:10 Dose: 20 meq Documented By: KYLER Prednisolone Sodium Phosphate (Prednisolone Sodium Phosphate 15 Mg/5 Ml Solution) 40 mg PO DAILY [facility] Last Admin: 03/12/22 09:10 Dose: 40 mg Documented By: KYLER Pyridoxine HCl (Pyridoxine Hcl (Vitamin B6) 50 Mg Tablet) 100 mg PO DAILY [facility] Last Admin: 03/12/22 09:11 Dose: 100 mg Documented By: KYLER Rifaximin (Rifaximin 550 Mg Tablet) 550 mg PO BID [facility] Last Admin: 03/12/22 09:10 Dose: 550 mg Documented By: KYLER Sodium Chloride (0.9 % Sodium Chloride Flush 3 Ml Syringe) 3 ml IVFLUSH QSHIFT [facility] Last Admin: 03/12/22 09:11 Dose: 3 ml Documented By: KYLER Thiamine HCl (Thiamine Hcl 100 Mg Tablet) 100 mg PO DAILY [facility] Last Admin: 03/12/22 09:11 Dose: 100 mg Documented By: KYLER Trimethoprim/Sulfamethoxazole (Sulfamethox/Trimeth 800/160 Tablet) 1 tab PO Q12H [facility] Stop: 03/16/22 17:59 Last Admin: 03/12/22 06:20 Dose: 1 tab Documented By: PETRONA Zinc Sulfate (Zinc Sulfate 220 Mg Capsule) 220 mg PO BID [facility] Last Admin: 03/12/22 09:10 Dose: 220 mg Documented By: KYLER Labs CBC & Chem 7: 03/12/22 05:37 03/12/22 05:37 Labs: Laboratory Results - last 24 hr 03/12/22 03/12/22 03/12/22 05:37 05:37 05:37 MCV 94.3 MCH 33.8 H MCHC 35.9 RDW 18.5 H Plt Count 55 L MPV 11.6 Absolute Nucleated RBC 0.000 Nucleated RBC % (auto) 0.0 PT 19.4 H INR 1.7 H Anion Gap 13 Estim Creat Clear Calc 47.0 Estimated GFR 37 Random Glucose 81 Calcium 8.4 D Total Bilirubin Direct Bilirubin AST ALT Alkaline Phosphatase Total Protein Albumin 03/12/22 05:37 MCV MCH MCHC RDW Plt Count MPV Absolute Nucleated RBC Nucleated RBC % (auto) PT INR Anion Gap Estim Creat Clear Calc Estimated GFR Random Glucose Calcium Total Bilirubin 20.8 H Direct Bilirubin 12.0 H AST 205 H ALT 70 H Alkaline Phosphatase 242 H Total Protein 7.0 Albumin 2.2 L Assessment and Plan (1) Alcoholic hepatitis: Status: Acute (2) Hepatic encephalopathy: Status: Acute (3) Acute blood loss anemia: Status: Acute Plan 57M with pmh alcohol dependence with cirrhosis presented with diarrhea and blood in stool acute blood loss symptomatic anemia due to gi bleed in patient with alcohol cirrhosis Hemoglobin stable at 9 Continue ppi Received total of 3 units of blood GI input appreciated, diverticular vs hemorrhoids, hold on endoscopy Stool studies showing Y.Enterocolitica , no more diarrhea now , treat with Bactrim for 5 days 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 and acute alcoholic hepatitis and elevated INR Mentation fluctuating, mildly improved over the course of hospital stay INR 1.8 Ammonia in 90s Continue rifaximin for encephalopathy, continue lactulose Hold lactulose for diarrhea follow INR and LFT Alcoholic hepatitis Bilirubin rising ABIC score of 9.4, 25% survive at 90 days GI input appreciated, steroid therapy Prednisolone 40 mg daily for 4 weeks (started 03/08), to follow w GI as OP Monitor LFT PHysical deconditioning seen by PT, recommended SNF placement alcohol dependence with withdrawal Advised complete abstinence from alcohol Finished phenobarb protocol, ciwa Hypomagnesemia Resolved, Replacement given p.o. supplement hypothyroid synthroid narayan Stable at 1.8 monitor BMP Hypokalemia resolved Thrombocytopenia Not due to sepsis Stable, chronic, of likely from chronic liver disease and alcoholism dvt prophylaxis SCDs due to gi bleed and thrombocytopenia reason for continued hospitalization: Alcoholic hepatitis, physical deconditioning requiring repeat blood work and close monitoring pending safe discharge plan Quality Stroke Does the patient have a stroke diagnosis?: No VTE Prior VTE?: No VTE Risk Level:: Medical - moderate - high VTE Device Contraindication: N/A - Device Ordered VTE Drug Contraindication: Treatment Not Indicated
[2022-03-12 15:04] VITALS: BP 121/66; PULSE 46; O2SAT 96
[2022-03-12 15:29] VITALS: BP 103/63; PULSE 45; RESP 16; TEMP 36.4; O2SAT 95
--- NOTE | 2022-03-12 17:02 | PM.GIPN ---
Subjective Subjective Date of Service: 03/12/22 Interval History: diarrhea this am Critical Care Time (minutes): 0 Physical Exam Vital Signs: Vital Signs: Last Vital Signs Temp 97.6 F 03/12/22 15:29 Pulse 45 L 03/12/22 15:29 Resp 16 03/12/22 15:29 BP 103/63 03/12/22 15:29 Pulse Ox 95 03/12/22 15:29 O2 Del Method 03/12/22 15:29 BMI result Body Mass Index 24.5 GI: Other: abdomen is soft Objective Data Labs CBC & Chem 7: 03/13/22 05:56 03/13/22 05:56 Labs: Laboratory Results - last 24 hr 03/12/22 03/12/22 03/12/22 05:37 05:37 05:37 WBC 6.1 RBC 2.63 L Hgb 8.9 L Hct 24.8 L MCV 94.3 MCH 33.8 H MCHC 35.9 RDW 18.5 H Plt Count 55 L MPV 11.6 Absolute Nucleated RBC 0.000 Nucleated RBC % (auto) 0.0 PT 19.4 H INR 1.7 H Sodium 137 Potassium 3.5 Chloride 109 H Carbon Dioxide 19 L Anion Gap 13 BUN 21 H Creatinine 1.88 H Estim Creat Clear Calc 47.0 Estimated GFR 37 Random Glucose 81 Calcium 8.4 D Total Bilirubin Direct Bilirubin AST ALT Alkaline Phosphatase Total Protein Albumin 03/12/22 05:37 WBC RBC Hgb Hct MCV MCH MCHC RDW Plt Count MPV Absolute Nucleated RBC Nucleated RBC % (auto) PT INR Sodium Potassium Chloride Carbon Dioxide Anion Gap BUN Creatinine Estim Creat Clear Calc Estimated GFR Random Glucose Calcium Total Bilirubin 20.8 H Direct Bilirubin 12.0 H AST 205 H ALT 70 H Alkaline Phosphatase 242 H Total Protein 7.0 Albumin 2.2 L Procedures Date of Service Date of Service: 03/12/22 Progress Note: A&P Time Spent With Patient Time: Total time spent is greater than 50% in coordination of care (as documented) at patient's floor/unit and/or counseling patient: Quality Stroke Does the patient have a stroke diagnosis?: No VTE Prior VTE?: No VTE Risk Level:: Medical - moderate - high VTE Device Contraindication: N/A - Device Ordered VTE Drug Contraindication: Treatment Not Indicated
[2022-03-12 19:57] VITALS: BP 98/57; PULSE 60; RESP 18; TEMP 36.1; O2SAT 94
[2022-03-13] VITALS (7 sets, daily range): BP systolic 93–119; BP diastolic 51–68; PULSE 49–56; RESP 18–20; TEMP 36.1–37.1; O2SAT 93–97
[2022-03-13] MEDS: Levothyroxine Sodium 25 MCG TABLET PO (05:55)
[2022-03-13] MEDS: Sulfamethox/Trimeth 800/160 TABLET 1 TAB PO ×2 (05:55→16:55)
[2022-03-13] MEDS: Omeprazole 40 MG CAPSULE.DR PO ×2 (05:55→16:55)
[2022-03-13 07:03] LABS: Hematocrit 21.8 % (42.0-52.0); Mean Corpuscular HGB Conc 36.7 g/dl (31.0-36.0); Mean Corpuscular Hemoglobin 34.3 pg (27.0-33.0); Mean Corpuscular Volume 93.6 fL (80.0-98.0); Mean Platelet Volume 12.2 fL (9.4-12.4); Red Blood Count 2.33 X10*6/uL (4.60-5.80); Red Cell Distribution Width 18.6 % (11.0-16.0); White Blood Count 5.6 X10*3/uL (4.8-10.8)
[2022-03-13 07:04] LABS: INTERNATIONAL NORM RATIO 1.7 (0.9-1.1); Platelet Count 59 X10*3/uL (160-400); Prothrombin Time 19.7 SEC (10.0-13.1)
[2022-03-13 07:33] LABS: Anion Gap 12 (12-20); Blood Urea Nitrogen 25 mg/dL (9-16); Calcium 8.2 mg/dL (8.4-10.2); Carbon Dioxide 19 mmol/L (22-29); Chloride 111 mmol/L (96-108); Creatinine Clr Calc Pharmacy 43.7; Estimated Glomerular Filt Rate 34; Glucose Random 94 mg/dL (60-115); Potassium 3.7 mmol/L (3.3-5.1); Sodium 138 mmol/L (135-145)
[2022-03-13 07:43] LABS: Alanine Aminotransferase 67 U/L (0-40); Alkaline Phosphatase 233 U/L (39-117); Aspartate Amino Transferase 194 U/L (5-37); Total Protein 6.5 g/dL (6.5-8.0)
[2022-03-13] MEDS: Magnesium Oxide 400 MG TABLET PO ×2 (08:51→16:55)
[2022-03-13] MEDS: Potassium Chloride ER 20 MEQ TAB.ER.PRT PO (08:51)
[2022-03-13] MEDS: Folic Acid 1 MG TABLET PO (08:52)
[2022-03-13] MEDS: Cyanocobalamin (Vitamin B-12) 1,000 MCG TABLET 1000 MCG PO (08:52)
[2022-03-13] MEDS: prednisoLONE sodium phosphate 15 MG/5 ML SOLUTION 40 MG PO (08:52)
[2022-03-13] MEDS: Multivitamin TABLET 1 TAB PO (08:52)
[2022-03-13] MEDS: Escitalopram Oxalate 20 MG TABLET PO (08:52)
[2022-03-13] MEDS: Zinc Sulfate 220 MG CAPSULE PO ×2 (08:52→19:29)
[2022-03-13] MEDS: Atorvastatin Calcium 10 MG TABLET PO (08:52)
[2022-03-13] MEDS: Thiamine HCL 100 MG TABLET PO (08:52)
[2022-03-13] MEDS: rifAXIMin 550 MG TABLET PO ×2 (08:52→19:29)
[2022-03-13] MEDS: Albumin Human 25 % 100 ML IV ×3 (08:53→19:29)
[2022-03-13] MEDS: 0.9 % Sodium Chloride Flush 3 ML SYRINGE IVFLUSH ×3 (08:53→19:29)
[2022-03-13] MEDS: Pyridoxine HCl (Vitamin B6) 50 MG TABLET 100 MG PO (08:58)
--- NOTE | 2022-03-13 10:15 | P.CONNP_ITS ---
History of Present Illness Reason for Consult Consult date: 03/13/22 Reason for consult: VIKAS Chief Complaint Chief complaint: GI bleed, diarrhea History of Present Illness Narrative: 57 year-old male with history of liver cirrhosis presented to the hospital with diarrhea for 5 days prior to presentation, and then had blood in the stool.? He does have history of EGD showing esophageal varices, but reports no h emoptysis or hematemesis. Patient otherwise denies any chest pain, no abdominal pain, no urinary symptoms and no lower extremity edema.? No numbness or weakness or tingling, patient also reports that he notices skin changes turning yellow since yesterday.?His ammonia levels has been high. In the ER hemoglobin was 7.5 the dropped from 8.5 on 02/22, with a baseline of 10.1 in October, hematocrit 21.6, MCV of 98.2, potassium of 3.6, total bilirubin of 13.2, direct 8.4, AST of 2 4, ALT of 41, alk-phos of 319, BNP of 877, lipase of 96, COVID-19 negative, stool occult blood positive. Patient started on octreotide, pantoprazole, and will be admitted for further management. His serum creatinine has gone up. Nephrology has been consulted to assist in his clinical care during his current hospital stay. Review of Systems Review of Systems Yes all other systems are reviewed and are negative PMFSH Past Medical History Medical History Asthma Cirrhosis of liver Hx of fall Hx pulmonary embolism Status post abdominal paracentesis Family History Family History (Updated 03/06/22 @ 06:53 by Rangel Staples MD) Other No family history of coronary artery disease Surgical History Surgical History Hx of colonoscopy Hx of esophagogastroduodenoscopy Hx of right inguinal hernia repair Social History Social History Household Members: Other Household Members Other:: Mother Housing: House Do you presently have visiting nurse or other home services: No Alcohol intake: current Alcohol intake frequency: 3 or more drinks per day Alcohol type: wine Patient Tobacco Use Status: Never used Tobacco e-Cigarette/Vaping Use: Never Used Second Hand Smoke Exposure: No Substance Use Type: Marijuana Advance Directives Date on File: 08/09/21 service: No Current occupational status: employed Meds Allergies Allergy/AdvReac Type Severity Reaction Status Date / Time No Known Allergies Allergy Verified 02/22/22 15:55 [No Known Allergies*] Active Medications: Current Medications Albuterol Sulfate (Albuterol Sulfate 90 Mcg 8 Gm Inhaler) 2 puff INHALE Q4H PRN PRN Reason: Shortness Of Breath Atorvastatin Calcium (Atorvastatin Calcium 10 Mg Tablet) 10 mg PO DAILY [facility] Last Admin: 03/13/22 08:52 Dose: 10 mg Cyanocobalamin (Cyanocobalamin (Vitamin B-12) 1,000 Mcg Tablet) 1,000 mcg PO DAILY [facility] Last Admin: 03/13/22 08:52 Dose: 1,000 mcg Docusate Sodium (Docusate Sodium 100 Mg Capsule) 100 mg PO DAILY PRN PRN Reason: Constipation Escitalopram Oxalate (Escitalopram Oxalate 20 Mg Tablet) 20 mg PO DAILY [facility] Last Admin: 03/13/22 08:52 Dose: 20 mg Folic Acid (Folic Acid 1 Mg Tablet) 1 mg PO DAILY [facility] Last Admin: 03/13/22 08:52 Dose: 1 mg Albumin Human (Kedbumin 25 %) 100 mls @ 100 mls/hr IV Q6H [facility] Stop: 03/14/22 02:59 Last Admin: 03/13/22 08:53 Dose: 100 mls/hr Lactulose (Lactulose 20 Gm/30 Ml Solution) 20 gm PO TID [facility] Last Admin: 03/13/22 08:53 Dose: Not Given Levothyroxine Sodium (Levothyroxine Sodium 25 Mcg Tablet) 25 mcg PO DAILY@0600 [facility] Last Admin: 03/13/22 05:55 Dose: 25 mcg Magnesium Oxide (Magnesium Oxide 400 Mg Tablet) 400 mg PO BIDPC [facility] Last Admin: 03/13/22 08:51 Dose: 400 mg Multivitamins/Vitamin C (Multivitamin Tablet) 1 tab PO DAILY [facility] Last Admin: 03/13/22 08:52 Dose: 1 tab Nadolol (Nadolol 40 Mg Tablet) 40 mg PO DAILY [facility]; Protocol Last Admin: 03/13/22 08:52 Dose: 40 mg Omeprazole (Omeprazole 40 Mg Capsule.Dr) 40 mg PO BID@0630,1630 [facility] Last Admin: 03/13/22 05:55 Dose: 40 mg Ondansetron HCl (Ondansetron Hcl 4 Mg/2 Ml Vial) 4 mg IVPUSH Q8H PRN PRN Reason: Nausea and Vomiting Last Admin: 03/06/22 19:21 Dose: 4 mg Pharmacy Consult (Consult Rx Perform Med Rec) 1 each MISCELLANE ONCE PRN PRN Reason: Consult order Pharmacy Consult (Consult Rx Etoh Phenob Im/Po) 1 each MISCELLANE ONCE PRN; Protocol PRN Reason: Consult order Potassium Chloride (Potassium Chloride Er 20 Meq Tab.Er.Prt) 20 meq PO DAILY [facility] Last Admin: 03/13/22 08:51 Dose: 20 meq Prednisolone Sodium Phosphate (Prednisolone Sodium Phosphate 15 Mg/5 Ml Solution) 40 mg PO DAILY [facility] Last Admin: 03/13/22 08:52 Dose: 40 mg Pyridoxine HCl (Pyridoxine Hcl (Vitamin B6) 50 Mg Tablet) 100 mg PO DAILY [facility] Last Admin: 03/13/22 08:58 Dose: 100 mg Rifaximin (Rifaximin 550 Mg Tablet) 550 mg PO BID [facility] Last Admin: 03/13/22 08:52 Dose: 550 mg Sodium Chloride (0.9 % Sodium Chloride Flush 3 Ml Syringe) 3 ml IVFLUSH QSHIFT [facility] Last Admin: 03/13/22 08:53 Dose: 3 ml Thiamine HCl (Thiamine Hcl 100 Mg Tablet) 100 mg PO DAILY [facility] Last Admin: 03/13/22 08:52 Dose: 100 mg Trimethoprim/Sulfamethoxazole (Sulfamethox/Trimeth 800/160 Tablet) 1 tab PO Q12H [facility] Stop: 03/16/22 17:59 Last Admin: 03/13/22 05:55 Dose: 1 tab Zinc Sulfate (Zinc Sulfate 220 Mg Capsule) 220 mg PO BID [facility] Last Admin: 03/13/22 08:52 Dose: 220 mg Home Medications Medication Instructions Recorded Confirmed Last Taken Type albuterol sulfate 90 mcg/actuation 2 puff inhalation Q4-6H PRN 05/26/20 03/05/22 Unknown History aerosol inhaler Shortness Of Breath pantoprazole 40 mg tablet,delayed 40 mg PO DAILY 05/26/20 03/05/22 03/04/22 History release atorvastatin 10 mg tablet 1 tab PO DAILY 07/25/21 03/05/22 03/04/22 History cyanocobalamin (vitamin B-12) 1,000 mcg PO DAILY 07/25/21 03/05/22 03/04/22 History 1,000 mcg tablet magnesium oxide 400 mg (241.3 mg 1 tab PO DAILY 07/25/21 03/05/22 03/04/22 History magnesium) tablet multivitamin 1 tab PO DAILY 07/25/21 03/05/22 03/04/22 History pyridoxine (vitamin B6) 100 mg 100 mg PO DAILY 07/25/21 03/05/22 03/04/22 History tablet thiamine HCl (vitamin B1) 100 mg 100 mg PO DAILY 07/25/21 03/05/22 03/04/22 History tablet escitalopram oxalate 20 mg tablet 20 mg PO DAILY 03/05/22 03/05/22 03/04/22 History folic acid 1 mg tablet 1 mg PO DAILY 03/05/22 03/05/22 03/04/22 History levothyroxine 25 mcg tablet 1 tab PO DAILY 03/05/22 03/05/22 03/04/22 History nadolol 40 mg tablet 40 mg PO DAILY 03/05/22 03/05/22 03/04/22 History vitamin A 2,400 mcg capsule 1 cap PO DAILY 03/05/22 03/05/22 03/04/22 History Physical Exam Vital Signs: Last Vital Signs Temp 97.3 F 03/13/22 07:37 Pulse 50 03/13/22 07:37 Resp 20 03/13/22 07:37 BP 105/67 03/13/22 07:37 Pulse Ox 96 03/13/22 07:37 O2 Del Method 03/13/22 07:37 BMI result Body Mass Index 24.5 Const Other: Jaundiced Neck Neck: Yes supple Resp Auscultation: diminished lung sounds Cardio Rate: regular rate GI Palpation (GI): Soft to palpation Skin Other: Jaundiced Neuro General: moves all extremities Results Lab Results Result Diagrams: 03/13/22 05:56 03/13/22 05:56 Lab results: Chemistry 03/11/22 03/12/22 03/13/22 05:59 05:37 05:56 Sodium 136 137 138 Potassium 3.6 3.5 3.7 Carbon Dioxide 20 L 19 L 19 L BUN 17 H 21 H 25 H Creatinine 1.85 H 1.88 H 2.02 H Calcium 7.9 L 8.4 D 8.2 L Hematology 03/11/22 03/12/22 03/13/22 05:59 05:37 05:56 WBC 5.3 6.1 5.6 Hgb 8.3 L 8.9 L 8.0 L Plt Count 44 L 55 L 59 L Assessment and Plan (1) Acute kidney injury: Status: Acute Plan VIKAS likely due to tubular injury Differential is HRS Has HRS 2 @ baseline; Urine sodium gregorio C/W 25 % Albumin 25 Gram Q 6 hourly( total 100 Gram /day) On Prednsione; May need to switch bactrim; Start Midodrine 5 mg tid No indication for HD; Labs AM; Shall closely follow up Procedures Date of Service Date of Service: 03/13/22
--- NOTE | 2022-03-13 12:19 | HO.PM.IMPN ---
Subjective Subjective Date of Service: 03/13/22 Interval History: The patient was seen and evaluated this morning Transaminitis trending down mildly more alert and interactive but still feeling weak and laying down in the bed Denies any pain but reported having diarrhea with no bleeding No reported other overnight events. Systemic review: No fever, chills but reports feeling generalized weakness No chest pain, palpitation No shortness of breath or coughing No abdominal pain, nausea or vomiting No urinary symptoms Jaundiced Physical Exam Vital Signs: Vital Signs: Last Vital Signs Temp 97.5 F 03/13/22 11:35 Pulse 49 L 03/13/22 11:35 Resp 20 03/13/22 11:35 BP 100/58 L 03/13/22 11:35 Pulse Ox 93 03/13/22 11:35 O2 Del Method 03/13/22 11:35 BMI result Body Mass Index 24.5 Const: Other: Constitutional : Alert with stimulation, looks tired , jaundiced Neck : Normal inspection, Supple Cardiovascular : RRR, no JVP, no lower extremity edema Respiratory : fair bilateral air entry, no crackles, wheezes or rhonchi Gastrointestinal: soft, lax, Normal bowel sounds, mildly distended with moderate amount of ascites, Non tender Skin : Warm, Dry Neurological : Alert with stimulation & oriented to self and place, No focal deficit Objective Data Active Medications Albuterol Sulfate (Albuterol Sulfate 90 Mcg 8 Gm Inhaler) 2 puff INHALE Q4H PRN PRN Reason: Shortness Of Breath Atorvastatin Calcium (Atorvastatin Calcium 10 Mg Tablet) 10 mg PO DAILY [facility] Last Admin: 03/13/22 08:52 Dose: 10 mg Documented By: INDRA Cyanocobalamin (Cyanocobalamin (Vitamin B-12) 1,000 Mcg Tablet) 1,000 mcg PO DAILY [facility] Last Admin: 03/13/22 08:52 Dose: 1,000 mcg Documented By: INDRA Docusate Sodium (Docusate Sodium 100 Mg Capsule) 100 mg PO DAILY PRN PRN Reason: Constipation Escitalopram Oxalate (Escitalopram Oxalate 20 Mg Tablet) 20 mg PO DAILY [facility] Last Admin: 03/13/22 08:52 Dose: 20 mg Documented By: INDRA Folic Acid (Folic Acid 1 Mg Tablet) 1 mg PO DAILY [facility] Last Admin: 03/13/22 08:52 Dose: 1 mg Documented By: INDRA Albumin Human (Kedbumin 25 %) 100 mls @ 100 mls/hr IV Q6H [facility] Stop: 03/14/22 02:59 Last Infusion: 03/13/22 10:28 Dose: 0 mls/hr Documented By: INDRA Lactulose (Lactulose 20 Gm/30 Ml Solution) 20 gm PO TID [facility] Last Admin: 03/13/22 08:53 Dose: Not Given Documented By: INDRA Non-Admin Reason: Patient Refused Levothyroxine Sodium (Levothyroxine Sodium 25 Mcg Tablet) 25 mcg PO DAILY@0600 [facility] Last Admin: 03/13/22 05:55 Dose: 25 mcg Documented By: RICO Magnesium Oxide (Magnesium Oxide 400 Mg Tablet) 400 mg PO BIDPC [facility] Last Admin: 03/13/22 08:51 Dose: 400 mg Documented By: INDRA Multivitamins/Vitamin C (Multivitamin Tablet) 1 tab PO DAILY [facility] Last Admin: 03/13/22 08:52 Dose: 1 tab Documented By: INDRA Nadolol (Nadolol 40 Mg Tablet) 40 mg PO DAILY [facility]; Protocol Last Admin: 03/13/22 08:52 Dose: 40 mg Documented By: INDRA Omeprazole (Omeprazole 40 Mg Capsule.Dr) 40 mg PO BID@0630,1630 [facility] Last Admin: 03/13/22 05:55 Dose: 40 mg Documented By: RICO Ondansetron HCl (Ondansetron Hcl 4 Mg/2 Ml Vial) 4 mg IVPUSH Q8H PRN PRN Reason: Nausea and Vomiting Last Admin: 03/06/22 19:21 Dose: 4 mg Documented By: TERESA Pharmacy Consult (Consult Rx Perform Med Rec) 1 each MISCELLANE ONCE PRN PRN Reason: Consult order Pharmacy Consult (Consult Rx Etoh Phenob Im/Po) 1 each MISCELLANE ONCE PRN; Protocol PRN Reason: Consult order Potassium Chloride (Potassium Chloride Er 20 Meq Tab.Er.Prt) 20 meq PO DAILY [facility] Last Admin: 03/13/22 08:51 Dose: 20 meq Documented By: INDRA Prednisolone Sodium Phosphate (Prednisolone Sodium Phosphate 15 Mg/5 Ml Solution) 40 mg PO DAILY [facility] Last Admin: 03/13/22 08:52 Dose: 40 mg Documented By: INDRA Pyridoxine HCl (Pyridoxine Hcl (Vitamin B6) 50 Mg Tablet) 100 mg PO DAILY [facility] Last Admin: 03/13/22 08:58 Dose: 100 mg Documented By: INDRA Rifaximin (Rifaximin 550 Mg Tablet) 550 mg PO BID [facility] Last Admin: 03/13/22 08:52 Dose: 550 mg Documented By: INDRA Sodium Chloride (0.9 % Sodium Chloride Flush 3 Ml Syringe) 3 ml IVFLUSH QSHIFT [facility] Last Admin: 03/13/22 08:53 Dose: 3 ml Documented By: INDRA Thiamine HCl (Thiamine Hcl 100 Mg Tablet) 100 mg PO DAILY [facility] Last Admin: 03/13/22 08:52 Dose: 100 mg Documented By: INDRA Trimethoprim/Sulfamethoxazole (Sulfamethox/Trimeth 800/160 Tablet) 1 tab PO Q12H [facility] Stop: 03/16/22 17:59 Last Admin: 03/13/22 05:55 Dose: 1 tab Documented By: RICO Zinc Sulfate (Zinc Sulfate 220 Mg Capsule) 220 mg PO BID [facility] Last Admin: 03/13/22 08:52 Dose: 220 mg Documented By: INDRA Labs CBC & Chem 7: 03/13/22 05:56 03/13/22 05:56 Labs: Laboratory Results - last 24 hr 03/13/22 03/13/22 03/13/22 05:56 05:56 05:56 MCV 93.6 MCH 34.3 H MCHC 36.7 H RDW 18.6 H Plt Count 59 L MPV 12.2 Absolute Nucleated RBC 0.000 Nucleated RBC % (auto) 0.0 PT 19.7 H INR 1.7 H Anion Gap 12 Estim Creat Clear Calc 43.7 Estimated GFR 34 Random Glucose 94 Calcium 8.2 L Total Bilirubin Direct Bilirubin AST ALT Alkaline Phosphatase Total Protein Albumin 03/13/22 05:56 MCV MCH MCHC RDW Plt Count MPV Absolute Nucleated RBC Nucleated RBC % (auto) PT INR Anion Gap Estim Creat Clear Calc Estimated GFR Random Glucose Calcium Total Bilirubin 18.0 H Direct Bilirubin 11.0 H AST 194 H ALT 67 H Alkaline Phosphatase 233 H Total Protein 6.5 Albumin 2.0 L Assessment and Plan (1) Acute kidney injury: Status: Acute (2) Alcoholic hepatitis: Status: Acute (3) Hepatic encephalopathy: Status: Acute (4) Acute blood loss anemia: Status: Acute Plan 57M with pmh alcohol dependence with cirrhosis presented with diarrhea and blood in stool acute blood loss symptomatic anemia due to gi bleed in patient with alcohol cirrhosis Hemoglobin dropped mildly to 8 Continue ppi Received total of 3 units of blood GI input appreciated, diverticular vs hemorrhoids, hold on endoscopy Stool studies showing Y.Enterocolitica , no more diarrhea now , treat with Bactrim for 5 days 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 and acute alcoholic hepatitis and elevated INR Mentation improving, mildly improved over the course of hospital stay INR 1.7 Continue rifaximin and lactulose for encephalopathy Hold lactulose for diarrhea follow INR and LFT Alcoholic hepatitis Bilirubin started to trend down ABIC score of 9.4, 25% survive at 90 days GI input appreciated, steroid therapy Prednisolone 40 mg daily for 4 weeks (started 03/08), to follow w GI as OP Monitor LFT narayan secondary to hepatorenal syndrome Creatinine worse at 2 Check urine sodium Start albumin 4 doses for today Start midodrine Nephrology input appreciated monitor BMP PHysical deconditioning seen by PT, recommended SNF placement alcohol dependence with withdrawal Advised complete abstinence from alcohol Finished phenobarb protocol Hypomagnesemia Resolved, Replacement given p.o. supplement hypothyroid synthroid Hypokalemia resolved Thrombocytopenia Not due to sepsis Stable, chronic, of likely from chronic liver disease and alcoholism dvt prophylaxis SCDs due to gi bleed and thrombocytopenia reason for continued hospitalization: Acute Alcoholic hepatitis, hepatorenal syndrome and acute kidney injury, physical deconditioning requiring repeat blood work and close monitoring pending safe discharge plan Quality Stroke Does the patient have a stroke diagnosis?: No VTE Prior VTE?: No VTE Risk Level:: Medical - moderate - high VTE Device Contraindication: N/A - Device Ordered VTE Drug Contraindication: Treatment Not Indicated
[2022-03-13 13:46] LABS: Alpha Fetoprotein 2.8 ng/mL (<6.1)
[2022-03-13 21:06] LABS: Appearance Urine Clear; Color Urine Dark Yellow; Glucose Urine UA Negative (Negative); Leukocyte Esterase Urine Trace (Negative); Nitrite Urine Negative (Negative); UMIC TRIGGER UA YES; Urine Blood Negative (Negative); Urine Ketones Negative (Negative); Urine Protein 30 (1+) mg/dL (Neg-Trace)
[2022-03-13 21:09] LABS: Bacteria Urine None Seen (None Seen); Hyaline Casts Urine 0-2 /LPF (0-2); RBC Urine 0-2 /HPF (0-2); Squamous Epithelial Cell Urine 0-2 /HPF (0-2); WBC Urine 0-5 /HPF (0-5)
[2022-03-13 21:19] LABS: Creatinine Urine 144.58 mg/dL
[2022-03-14] VITALS (10 sets, daily range): BP systolic 97–131; BP diastolic 63–76; PULSE 50–53; RESP 16–18; TEMP 36.4–37.1; O2SAT 5–97
[2022-03-14] MEDS: Albumin Human 25 % 100 ML IV (01:35)
[2022-03-14] MEDS: Levothyroxine Sodium 25 MCG TABLET PO (05:40)
[2022-03-14] MEDS: Sulfamethox/Trimeth 800/160 TABLET 1 TAB PO (05:40)
[2022-03-14] MEDS: Omeprazole 40 MG CAPSULE.DR PO ×2 (05:40→16:29)
[2022-03-14 06:35] LABS: INTERNATIONAL NORM RATIO 1.8 (0.9-1.1); Prothrombin Time 21.6 SEC (10.0-13.1)
[2022-03-14 06:40] LABS: Mean Corpuscular HGB Conc 36.1 g/dl (31.0-36.0); Mean Corpuscular Hemoglobin 34.2 pg (27.0-33.0); Mean Corpuscular Volume 94.6 fL (80.0-98.0); Red Blood Count 2.02 X10*6/uL (4.60-5.80); Red Cell Distribution Width 18.7 % (11.0-16.0); White Blood Count 5.8 X10*3/uL (4.8-10.8)
[2022-03-14 06:46] LABS: Hematocrit 19.1 % (42.0-52.0); Hemoglobin 6.9 g/dl (14.0-18.0); Platelet Count 63 X10*3/uL (160-400)
[2022-03-14 07:01] LABS: Anion Gap 13 (12-20); Blood Urea Nitrogen 25 mg/dL (9-16); Calcium 8.5 mg/dL (8.4-10.2); Carbon Dioxide 18 mmol/L (22-29); Chloride 110 mmol/L (96-108); Creatinine Clr Calc Pharmacy 45.7; Estimated Glomerular Filt Rate 36; Glucose Random 116 mg/dL (60-115); Potassium 3.8 mmol/L (3.3-5.1); Sodium 137 mmol/L (135-145)
[2022-03-14 07:03] LABS: Alanine Aminotransferase 60 U/L (0-40); Albumin Level 2.9 g/dL (3.5-5.0); Alkaline Phosphatase 197 U/L (39-117); Aspartate Amino Transferase 169 U/L (5-37); Bilirubin Direct 9.8 mg/dL (0.0-0.5); Bilirubin Total 17.4 mg/dL (0.0-1.0); Total Protein 6.8 g/dL (6.5-8.0)
[2022-03-14] MEDS: Magnesium Oxide 400 MG TABLET PO ×2 (08:06→16:28)
[2022-03-14] MEDS: Cyanocobalamin (Vitamin B-12) 1,000 MCG TABLET 1000 MCG PO (08:06)
[2022-03-14] MEDS: rifAXIMin 550 MG TABLET PO ×2 (08:06→20:18)
[2022-03-14] MEDS: Potassium Chloride ER 20 MEQ TAB.ER.PRT PO (08:06)
[2022-03-14] MEDS: Thiamine HCL 100 MG TABLET PO (08:06)
[2022-03-14] MEDS: Folic Acid 1 MG TABLET PO (08:06)
[2022-03-14] MEDS: Multivitamin TABLET 1 TAB PO (08:07)
[2022-03-14] MEDS: Atorvastatin Calcium 10 MG TABLET PO (08:07)
[2022-03-14] MEDS: Zinc Sulfate 220 MG CAPSULE PO ×2 (08:07→20:18)
[2022-03-14] MEDS: Escitalopram Oxalate 20 MG TABLET PO (08:07)
[2022-03-14] MEDS: Pyridoxine HCl (Vitamin B6) 50 MG TABLET 100 MG PO (08:07)
[2022-03-14] MEDS: prednisoLONE sodium phosphate 15 MG/5 ML SOLUTION 40 MG PO (08:07)
[2022-03-14] MEDS: 0.9 % Sodium Chloride Flush 3 ML SYRINGE IVFLUSH ×3 (08:10→20:18)
--- NOTE | 2022-03-14 10:38 | P.PNNP_ITS ---
Subjective Subjective Date of Service: 03/14/22 Interval history: Events noted. All recent data reviewed Physical Exam Vital Signs: Vital Signs: Last Vital Signs Temp 98.1 F 03/14/22 09:59 Pulse 50 03/14/22 09:59 Resp 16 03/14/22 09:59 BP 118/63 03/14/22 09:59 Pulse Ox 97 03/14/22 08:53 O2 Del Method 03/14/22 07:36 BMI result Body Mass Index 24.5 Const: General: no acute distress Neck: Neck: Yes supple Resp: Auscultation: diminished lung sounds Cardio: Rate: regular rate GI: Palpation (GI): Soft to palpation Skin: Other: Jaundiced Neuro: General: moves all extremities Objective Data Labs CBC & Chem 7: 03/14/22 06:04 03/14/22 06:04 Labs: Laboratory Results - last 24 hr 03/11/22 03/13/22 03/13/22 11:49 20:30 20:30 WBC RBC Hgb Hct MCV MCH MCHC RDW Plt Count MPV Absolute Nucleated RBC Nucleated RBC % (auto) PT INR Sodium Potassium Chloride Carbon Dioxide Anion Gap BUN Creatinine Estim Creat Clear Calc Estimated GFR Random Glucose Calcium Total Bilirubin Direct Bilirubin AST ALT Alkaline Phosphatase Total Protein Albumin Alpha Fetoprotein 2.8 Urine Color Dark Yellow Urine Appearance Clear Urine pH 6.0 Ur Specific [place] 1.020 Urine Protein 30 (1+) H Urine Glucose (UA) Negative Urine Ketones Negative Urine Blood Negative Urine Nitrite Negative Ur Leukocyte Esterase Trace H Urine RBC 0-2 Urine WBC 0-5 Ur Squamous Epith Cells 0-2 Urine Bacteria None Seen Hyaline Casts 0-2 Ur Random Sodium 26.0 Urine Creatinine 144.58 Blood Type Antibody Screen Crossmatch 03/14/22 03/14/22 03/14/22 06:04 06:04 06:04 WBC 5.8 RBC 2.02 L Hgb 6.9 L* Hct 19.1 L* MCV 94.6 MCH 34.2 H MCHC 36.1 H RDW 18.7 H Plt Count 63 L MPV 11.0 Absolute Nucleated RBC 0.000 Nucleated RBC % (auto) 0.0 PT 21.6 H INR 1.8 H Sodium 137 Potassium 3.8 Chloride 110 H Carbon Dioxide 18 L Anion Gap 13 BUN 25 H Creatinine 1.93 H Estim Creat Clear Calc 45.7 Estimated GFR 36 Random Glucose 116 H Calcium 8.5 Total Bilirubin Direct Bilirubin AST ALT Alkaline Phosphatase Total Protein Albumin Alpha Fetoprotein Urine Color Urine Appearance Urine pH Ur Specific [place] Urine Protein Urine Glucose (UA) Urine Ketones Urine Blood Urine Nitrite Ur Leukocyte Esterase Urine RBC Urine WBC Ur Squamous Epith Cells Urine Bacteria Hyaline Casts Ur Random Sodium Urine Creatinine Blood Type Antibody Screen Crossmatch 03/14/22 03/14/22 06:04 07:57 WBC RBC Hgb Hct MCV MCH MCHC RDW Plt Count MPV Absolute Nucleated RBC Nucleated RBC % (auto) PT INR Sodium Potassium Chloride Carbon Dioxide Anion Gap BUN Creatinine Estim Creat Clear Calc Estimated GFR Random Glucose Calcium Total Bilirubin 17.4 H Direct Bilirubin 9.8 H AST 169 H ALT 60 H Alkaline Phosphatase 197 H Total Protein 6.8 Albumin 2.9 L D Alpha Fetoprotein Urine Color Urine Appearance Urine pH Ur Specific [place] Urine Protein Urine Glucose (UA) Urine Ketones Urine Blood Urine Nitrite Ur Leukocyte Esterase Urine RBC Urine WBC Ur Squamous Epith Cells Urine Bacteria Hyaline Casts Ur Random Sodium Urine Creatinine Blood Type O Positive Antibody Screen NEGATIVE Crossmatch See Detail Procedures Date of Service Date of Service: 03/14/22 Assessment & Plan Assessment and plan (1) Acute kidney injury: Status: Acute Assessment and Plan: VIKAS likely due to HRS Has HRS 2 @ baseline; Urine sodium < 20 C/W 25 % Albumin 25 Gram Q 6 hourly( total 100 Gram /day) On Prednsione; D/Leonid bactrim; Started Midodrine 5 mg tid No indication for HD; Labs AM; Shall closely follow up Time Spent With Patient Time: Total time spent is greater than 50% in coordination of care (as documented) at patient's floor/unit and/or counseling patient: Progress Note: Quality Stroke Does the patient have a stroke diagnosis?: No
[2022-03-14] MEDS: Midodrine HCl 5 MG TABLET PO ×3 (10:52→20:18)
--- NOTE | 2022-03-14 11:55 | P.PNIM_ITS ---
Subjective Subjective Date of Service: 03/14/22 Interval History: cc: diarrhea, blood in stool interval history: still with diarrhea, abd distension Cardiovascular Cardiovascular: Reports no additional cardiovascular complaints Respiratory Respiratory: Reports no additional respiratory complaints Physical Exam Vital Signs: Vital Signs: Last Vital Signs Temp 97.9 F 03/14/22 11:11 Pulse 50 03/14/22 11:11 Resp 18 03/14/22 11:11 BP 112/64 03/14/22 11:11 Pulse Ox 95 03/14/22 11:11 O2 Del Method 03/14/22 11:11 BMI result Body Mass Index 24.5 General: AO X 3, no acute distress, jaundiced Resp: CTA bilateral, no accessory muscles used CVS: S1,S2,RRR GI: soft, non tender, distended Neuro: motor grossly intact, alert Psych: appropriate affect, appropriate insight Objective Data Active Medications Albuterol Sulfate (Albuterol Sulfate 90 Mcg 8 Gm Inhaler) 2 puff INHALE Q4H PRN PRN Reason: Shortness Of Breath Atorvastatin Calcium (Atorvastatin Calcium 10 Mg Tablet) 10 mg PO DAILY [facility] Last Admin: 03/14/22 08:07 Dose: 10 mg Documented By: JANET Cyanocobalamin (Cyanocobalamin (Vitamin B-12) 1,000 Mcg Tablet) 1,000 mcg PO DAILY [facility] Last Admin: 03/14/22 08:06 Dose: 1,000 mcg Documented By: JANET Docusate Sodium (Docusate Sodium 100 Mg Capsule) 100 mg PO DAILY PRN PRN Reason: Constipation Escitalopram Oxalate (Escitalopram Oxalate 20 Mg Tablet) 20 mg PO DAILY [facility] Last Admin: 03/14/22 08:07 Dose: 20 mg Documented By: JANET Folic Acid (Folic Acid 1 Mg Tablet) 1 mg PO DAILY [facility] Last Admin: 03/14/22 08:06 Dose: 1 mg Documented By: JANET Lactulose (Lactulose 20 Gm/30 Ml Solution) 20 gm PO TID [facility] Last Admin: 03/14/22 08:04 Dose: Not Given Documented By: JANET Non-Admin Reason: Patient Refused Levothyroxine Sodium (Levothyroxine Sodium 25 Mcg Tablet) 25 mcg PO DAILY@0600 [facility] Last Admin: 03/14/22 05:40 Dose: 25 mcg Documented By: JASON Magnesium Oxide (Magnesium Oxide 400 Mg Tablet) 400 mg PO BIDPC [facility] Last Admin: 03/14/22 08:06 Dose: 400 mg Documented By: JANET Midodrine (Midodrine Hcl 5 Mg Tablet) 5 mg PO TID [facility] Last Admin: 03/14/22 10:52 Dose: 5 mg Documented By: JANET Multivitamins/Vitamin C (Multivitamin Tablet) 1 tab PO DAILY [facility] Last Admin: 03/14/22 08:07 Dose: 1 tab Documented By: JANET Nadolol (Nadolol 40 Mg Tablet) 40 mg PO DAILY [facility]; Protocol Last Admin: 03/14/22 08:04 Dose: Not Given Documented By: JANET Non-Admin Reason: Decreased Heart Rate Omeprazole (Omeprazole 40 Mg Capsule.Dr) 40 mg PO BID@0630,1630 [facility] Last Admin: 03/14/22 05:40 Dose: 40 mg Documented By: JASON Ondansetron HCl (Ondansetron Hcl 4 Mg/2 Ml Vial) 4 mg IVPUSH Q8H PRN PRN Reason: Nausea and Vomiting Last Admin: 03/06/22 19:21 Dose: 4 mg Documented By: TERESA Pharmacy Consult (Consult Rx Perform Med Rec) 1 each MISCELLANE ONCE PRN PRN Reason: Consult order Pharmacy Consult (Consult Rx Etoh Phenob Im/Po) 1 each MISCELLANE ONCE PRN; Pro tocol PRN Reason: Consult order Potassium Chloride (Potassium Chloride Er 20 Meq Tab.Er.Prt) 20 meq PO DAILY [facility] Last Admin: 03/14/22 08:06 Dose: 20 meq Documented By: JANET Prednisolone Sodium Phosphate (Prednisolone Sodium Phosphate 15 Mg/5 Ml Solution) 40 mg PO DAILY [facility] Last Admin: 03/14/22 08:07 Dose: 40 mg Documented By: JANET Pyridoxine HCl (Pyridoxine Hcl (Vitamin B6) 50 Mg Tablet) 100 mg PO DAILY [facility] Last Admin: 03/14/22 08:07 Dose: 100 mg Documented By: JANET Rifaximin (Rifaximin 550 Mg Tablet) 550 mg PO BID [facility] Last Admin: 03/14/22 08:06 Dose: 550 mg Documented By: JANET Sodium Chloride (0.9 % Sodium Chloride Flush 3 Ml Syringe) 3 ml IVFLUSH QSHIFT [facility] Last Admin: 03/14/22 08:10 Dose: 3 ml Documented By: JANET Thiamine HCl (Thiamine Hcl 100 Mg Tablet) 100 mg PO DAILY [facility] Last Admin: 03/14/22 08:06 Dose: 100 mg Documented By: JANET Zinc Sulfate (Zinc Sulfate 220 Mg Capsule) 220 mg PO BID [facility] Last Admin: 03/14/22 08:07 Dose: 220 mg Documented By: JANET Labs CBC & Chem 7: 03/14/22 06:04 03/14/22 06:04 Labs: Laboratory Results - last 24 hr 03/11/22 03/13/22 03/13/22 11:49 20:30 20:30 MCV MCH MCHC RDW Plt Count MPV Absolute Nucleated RBC Nucleated RBC % (auto) Smear Path Review PT INR Anion Gap Estim Creat Clear Calc Estimated GFR Random Glucose Calcium Total Bilirubin Direct Bilirubin AST ALT Alkaline Phosphatase Total Protein Albumin Alpha Fetoprotein 2.8 Urine Color Dark Yellow Urine Appearance Clear Urine pH 6.0 Ur Specific [place] 1.020 Urine Protein 30 (1+) H Urine Glucose (UA) Negative Urine Ketones Negative Urine Blood Negative Urine Nitrite Negative Ur Leukocyte Esterase Trace H Urine RBC 0-2 Urine WBC 0-5 Ur Squamous Epith Cells 0-2 Urine Bacteria None Seen Hyaline Casts 0-2 Ur Random Sodium 26.0 Urine Creatinine 144.58 Blood Type Antibody Screen Crossmatch 03/14/22 03/14/22 03/14/22 06:04 06:04 06:04 MCV 94.6 MCH 34.2 H MCHC 36.1 H RDW 18.7 H Plt Count 63 L MPV 11.0 Absolute Nucleated RBC 0.000 Nucleated RBC % (auto) 0.0 Smear Path Review SEE NOTE PT 21.6 H INR 1.8 H Anion Gap 13 Estim Creat Clear Calc 45.7 Estimated GFR 36 Random Glucose 116 H Calcium 8.5 Total Bilirubin Direct Bilirubin AST ALT Alkaline Phosphatase Total Protein Albumin Alpha Fetoprotein Urine Color Urine Appearance Urine pH Ur Specific [place] Urine Protein Urine Glucose (UA) Urine Ketones Urine Blood Urine Nitrite Ur Leukocyte Esterase Urine RBC Urine WBC Ur Squamous Epith Cells Urine Bacteria Hyaline Casts Ur Random Sodium Urine Creatinine Blood Type Antibody Screen Crossmatch 03/14/22 03/14/22 06:04 07:57 MCV MCH MCHC RDW Plt Count MPV Absolute Nucleated RBC Nucleated RBC % (auto) Smear Path Review PT INR Anion Gap Estim Creat Clear Calc Estimated GFR Random Glucose Calcium Total Bilirubin 17.4 H Direct Bilirubin 9.8 H AST 169 H ALT 60 H Alkaline Phosphatase 197 H Total Protein 6.8 Albumin 2.9 L D Alpha Fetoprotein Urine Color Urine Appearance Urine pH Ur Specific [place] Urine Protein Urine Glucose (UA) Urine Ketones Urine Blood Urine Nitrite Ur Leukocyte Esterase Urine RBC Urine WBC Ur Squamous Epith Cells Urine Bacteria Hyaline Casts Ur Random Sodium Urine Creatinine Blood Type O Positive Antibody Screen NEGATIVE Crossmatch See Detail Assessment and Plan (1) Acute kidney injury: Status: Acute (2) Alcoholic hepatitis: Status: Acute (3) Hepatic encephalopathy: Status: Acute (4) Acute blood loss anemia: Status: Acute Plan 57M with pmh alcohol dependence with cirrhosis presented with diarrhea and blood in stool acute blood loss symptomatic anemia due to gi bleed in patient with alcohol cirrhosis Hemoglobin dropped to 6.9, transfuse 1 unit (4th), monitor Continue ppi GI input appreciated, diverticular vs hemorrhoids, hold on endoscopy Stool studies showing Y.Enterocolitica , no more diarrhea now , change to rocephin for last 2 days. 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 and acute alcoholic hepatitis and elevated INR Mentation improving, mildly improved over the course of hospital stay INR 1.8 Continue rifaximin and lactulose for encephalopathy Holding lactulose for diarrhea follow INR and LFT Alcoholic hepatitis Bilirubin started to trend down ABIC score of 9.4, 25% survive at 90 days GI input appreciated, steroid therapy Prednisolone 40 mg daily for 4 weeks (started 03/08), to follow w GI as OP Monitor LFT abd distension - US.paracenteis narayan secondary to hepatorenal syndrome s/p albumin 4 doses Start midodrine Nephrology input appreciated monitor BMP PHysical deconditioning seen by PT, recommended SNF placement alcohol dependence with withdrawal Advised complete abstinence from alcohol Finished phenobarb protocol Hypomagnesemia Resolved, Replacement given p.o. supplement hypothyroid synthroid Hypokalemia resolved Thrombocytopenia Not due to sepsis Stable, chronic, of likely from chronic liver disease and alcoholism dvt prophylaxis SCDs due to gi bleed and thrombocytopenia reason for continued hospitalization: Acute Alcoholic hepatitis, hepatorenal syndrome and acute kidney injury, physical deconditioning requiring repeat blood work and close monitoring pending safe discharge plan Quality Stroke Does the patient have a stroke diagnosis?: No VTE Prior VTE?: No VTE Risk Level:: Medical - moderate - high VTE Device Contraindication: N/A - Device Ordered VTE Drug Contraindication: Treatment Not Indicated
[2022-03-14] MEDS: cefTRIAXone sodium 1 GM in 0.9 % Sodium Chloride 50 ML IV (12:35)
--- NOTE | 2022-03-14 13:46 | PM.GIPN ---
Subjective Subjective Date of Service: 03/14/22 Interval History: no abd pain no rectal bleeding Critical Care Time (minutes): 0 Physical Exam Vital Signs: Vital Signs: Last Vital Signs Temp 97.9 F 03/14/22 11:45 Pulse 50 03/14/22 11:45 Resp 18 03/14/22 11:45 BP 112/64 03/14/22 11:45 Pulse Ox 95 03/14/22 11:11 O2 Del Method 03/14/22 11:11 BMI result Body Mass Index 24.5 GI: Other: abdomen is distended but nontender Objective Data Labs CBC & Chem 7: 03/14/22 06:04 03/14/22 06:04 Labs: Laboratory Results - last 24 hr 03/11/22 03/13/22 03/13/22 11:49 20:30 20:30 WBC RBC Hgb Hct MCV MCH MCHC RDW Plt Count MPV Absolute Nucleated RBC Nucleated RBC % (auto) Smear Path Review PT INR Sodium Potassium Chloride Carbon Dioxide Anion Gap BUN Creatinine Estim Creat Clear Calc Estimated GFR Random Glucose Calcium Total Bilirubin Direct Bilirubin AST ALT Alkaline Phosphatase Total Protein Albumin Alpha Fetoprotein 2.8 Urine Color Dark Yellow Urine Appearance Clear Urine pH 6.0 Ur Specific [place] 1.020 Urine Protein 30 (1+) H Urine Glucose (UA) Negative Urine Ketones Negative Urine Blood Negative Urine Nitrite Negative Ur Leukocyte Esterase Trace H Urine RBC 0-2 Urine WBC 0-5 Ur Squamous Epith Cells 0-2 Urine Bacteria None Seen Hyaline Casts 0-2 Ur Random Sodium 26.0 Urine Creatinine 144.58 Blood Type Antibody Screen Crossmatch 03/14/22 03/14/22 03/14/22 06:04 06:04 06:04 WBC 5.8 RBC 2.02 L Hgb 6.9 L* Hct 19.1 L* MCV 94.6 MCH 34.2 H MCHC 36.1 H RDW 18.7 H Plt Count 63 L MPV 11.0 Absolute Nucleated RBC 0.000 Nucleated RBC % (auto) 0.0 Smear Path Review SEE NOTE PT 21.6 H INR 1.8 H Sodium 137 Potassium 3.8 Chloride 110 H Carbon Dioxide 18 L Anion Gap 13 BUN 25 H Creatinine 1.93 H Estim Creat Clear Calc 45.7 Estimated GFR 36 Random Glucose 116 H Calcium 8.5 Total Bilirubin Direct Bilirubin AST ALT Alkaline Phosphatase Total Protein Albumin Alpha Fetoprotein Urine Color Urine Appearance Urine pH Ur Specific [place] Urine Protein Urine Glucose (UA) Urine Ketones Urine Blood Urine Nitrite Ur Leukocyte Esterase Urine RBC Urine WBC Ur Squamous Epith Cells Urine Bacteria Hyaline Casts Ur Random Sodium Urine Creatinine Blood Type Antibody Screen Crossmatch 03/14/22 03/14/22 06:04 07:57 WBC RBC Hgb Hct MCV MCH MCHC RDW Plt Count MPV Absolute Nucleated RBC Nucleated RBC % (auto) Smear Path Review PT INR Sodium Potassium Chloride Carbon Dioxide Anion Gap BUN Creatinine Estim Creat Clear Calc Estimated GFR Random Glucose Calcium Total Bilirubin 17.4 H Direct Bilirubin 9.8 H AST 169 H ALT 60 H Alkaline Phosphatase 197 H Total Protein 6.8 Albumin 2.9 L D Alpha Fetoprotein Urine Color Urine Appearance Urine pH Ur Specific [place] Urine Protein Urine Glucose (UA) Urine Ketones Urine Blood Urine Nitrite Ur Leukocyte Esterase Urine RBC Urine WBC Ur Squamous Epith Cells Urine Bacteria Hyaline Casts Ur Random Sodium Urine Creatinine Blood Type O Positive Antibody Screen NEGATIVE Crossmatch See Detail Procedures Date of Service Date of Service: 03/14/22 Progress Note: A&P Assessment and plan (1) Alcoholic hepatitis: Status: Acute Assessment and Plan: no signs of gi bleeding reassess steroids tomorrow, (day 7) Time Spent With Patient Time: Total time spent is greater than 50% in coordination of care (as documented) at patient's floor/unit and/or counseling patient: Quality Stroke Does the patient have a stroke diagnosis?: No VTE Prior VTE?: No VTE Risk Level:: Medical - moderate - high VTE Device Contraindication: N/A - Device Ordered VTE Drug Contraindication: Treatment Not Indicated
[2022-03-14 16:27] LABS: Zinc 27 mcg/dL (60-130)
[2022-03-15] VITALS (7 sets, daily range): BP systolic 106–136; BP diastolic 54–70; PULSE 45–54; RESP 14–17; TEMP 36.2–37.1; O2SAT 94–98
[2022-03-15] MEDS: Omeprazole 40 MG CAPSULE.DR PO ×2 (05:45→15:16)
[2022-03-15] MEDS: Levothyroxine Sodium 25 MCG TABLET PO (05:45)
[2022-03-15 06:50] LABS: Hematocrit 22.5 % (42.0-52.0); Hemoglobin 8.1 g/dl (14.0-18.0); Mean Corpuscular Hemoglobin 33.5 pg (27.0-33.0); Platelet Count 67 X10*3/uL (160-400); Red Blood Count 2.42 X10*6/uL (4.60-5.80); Red Cell Distribution Width 18.3 % (11.0-16.0); White Blood Count 6.5 X10*3/uL (4.8-10.8)
[2022-03-15 07:22] LABS: Alanine Aminotransferase 62 U/L (0-40); Albumin Level 2.7 g/dL (3.5-5.0); Alkaline Phosphatase 201 U/L (39-117); Anion Gap 14 (12-20); Aspartate Amino Transferase 173 U/L (5-37); Bilirubin Direct 9.5 mg/dL (0.0-0.5); Bilirubin Total 17.3 mg/dL (0.0-1.0); Blood Urea Nitrogen 25 mg/dL (9-16); Calcium 8.4 mg/dL (8.4-10.2); Carbon Dioxide 18 mmol/L (22-29); Chloride 110 mmol/L (96-108); Creatinine Clr Calc Pharmacy 48.8; Estimated Glomerular Filt Rate 39; Glucose Fasting 84 mg/dL (60-99); Magnesium 1.8 mg/dL (1.6-2.6); Sodium 138 mmol/L (135-145); Total Protein 6.5 g/dL (6.5-8.0)
--- NOTE | 2022-03-15 09:30 | HO.RADPN ---
RADIOLOGY Narrative Narrative: RLQ paracentesis using 5 fr catheter. 2.6 L clear remi colored fluid removed. Specimen sent as ordered.
--- NOTE | 2022-03-15 09:34 | P.PNIM_ITS ---
Subjective Subjective Date of Service: 03/15/22 Interval History: cc: diarrhea, blood in stool interval history: still with abd distension Cardiovascular Cardiovascular: Reports no additional cardiovascular complaints Respiratory Respiratory: Reports no additional respiratory complaints Physical Exam Vital Signs: Vital Signs: Last Vital Signs Temp 97.2 F 03/15/22 07:33 Pulse 47 L 03/15/22 07:33 Resp 14 03/15/22 07:33 BP 118/70 03/15/22 07:33 Pulse Ox 97 03/15/22 07:33 O2 Del Method 03/15/22 07:33 BMI result Body Mass Index 24.5 General: AO X 3, no acute distress, jaundiced Resp: CTA bilateral, no accessory muscles used CVS: S1,S2,RRR GI: soft, non tender, distended Neuro: motor grossly intact, alert Psych: appropriate affect, appropriate insight Objective Data Active Medications Albuterol Sulfate (Albuterol Sulfate 90 Mcg 8 Gm Inhaler) 2 puff INHALE Q4H PRN PRN Reason: Shortness Of Breath Atorvastatin Calcium (Atorvastatin Calcium 10 Mg Tablet) 10 mg PO DAILY [facility] Last Admin: 03/14/22 08:07 Dose: 10 mg Documented By: JANET Cyanocobalamin (Cyanocobalamin (Vitamin B-12) 1,000 Mcg Tablet) 1,000 mcg PO DAILY [facility] Last Admin: 03/14/22 08:06 Dose: 1,000 mcg Documented By: JANET Docusate Sodium (Docusate Sodium 100 Mg Capsule) 100 mg PO DAILY PRN PRN Reason: Constipation Escitalopram Oxalate (Escitalopram Oxalate 20 Mg Tablet) 20 mg PO DAILY [facility] Last Admin: 03/14/22 08:07 Dose: 20 mg Documented By: JANET Folic Acid (Folic Acid 1 Mg Tablet) 1 mg PO DAILY [facility] Last Admin: 03/14/22 08:06 Dose: 1 mg Documented By: JANET Ceftriaxone Sodium 1 gm/ (Sodium Chloride) 50 mls @ 100 mls/hr IV Q24H [facility] Last Infusion: 03/14/22 13:13 Dose: 0 mls/hr Documented By: JANET Lactulose (Lactulose 20 Gm/30 Ml Solution) 20 gm PO TID [facility] Last Admin: 03/15/22 09:00 Dose: Not Given Documented By: JANET Non-Admin Reason: Patient Refused Levothyroxine Sodium (Levothyroxine Sodium 25 Mcg Tablet) 25 mcg PO DAILY@0600 [facility] Last Admin: 03/15/22 05:45 Dose: 25 mcg Documented By: JASON Magnesium Oxide (Magnesium Oxide 400 Mg Tablet) 400 mg PO BIDPC [facility] Last Admin: 03/14/22 16:28 Dose: 400 mg Documented By: JANET Midodrine (Midodrine Hcl 5 Mg Tablet) 5 mg PO TID [facility] Last Admin: 03/14/22 20:18 Dose: 5 mg Documented By: JASON Multivitamins/Vitamin C (Multivitamin Tablet) 1 tab PO DAILY [facility] Last Admin: 03/14/22 08:07 Dose: 1 tab Documented By: JANET Nadolol (Nadolol 40 Mg Tablet) 40 mg PO DAILY [facility]; Protocol Last Admin: 03/15/22 09:00 Dose: Not Given Documented By: JANET Non-Admin Reason: Decreased Heart Rate Omeprazole (Omeprazole 40 Mg Capsule.Dr) 40 mg PO BID@0630,1630 [facility] Last Admin: 03/15/22 05:45 Dose: 40 mg Documented By: JASON Ondansetron HCl (Ondansetron Hcl 4 Mg/2 Ml Vial) 4 mg IVPUSH Q8H PRN PRN Reason: Nausea and Vomiting Last Admin: 03/06/22 19:21 Dose: 4 mg Documented By: TERESA Pharmacy Consult (Consult Rx Perform Med Rec) 1 each MISCELLANE ONCE PRN PRN Reason: Consult order Pharmacy Consult (Consult Rx Etoh Phenob Im/Po) 1 each MISCELLANE ONCE PRN; Protocol PRN Reason: Consult order Potassium Chloride (Potassium Chloride Er 20 Meq Tab.Er.Prt) 20 meq PO DAILY [facility] Last Admin: 03/14/22 08:06 Dose: 20 meq Documented By: JANET Prednisolone Sodium Phosphate (Prednisolone Sodium Phosphate 15 Mg/5 Ml Solution) 40 mg PO DAILY [facility] Last Admin: 03/14/22 08:07 Dose: 40 mg Documented By: JANET Pyridoxine HCl (Pyridoxine Hcl (Vitamin B6) 50 Mg Tablet) 100 mg PO DAILY [facility] Last Admin: 03/14/22 08:07 Dose: 100 mg Documented By: JANET Rifaximin (Rifaximin 550 Mg Tablet) 550 mg PO BID [facility] Last Admin: 03/14/22 20:18 Dose: 550 mg Documented By: JASON Sodium Chloride (0.9 % Sodium Chloride Flush 3 Ml Syringe) 3 ml IVFLUSH QSHIFT [facility] Last Admin: 03/14/22 20:18 Dose: 3 ml Documented By: JASON Thiamine HCl (Thiamine Hcl 100 Mg Tablet) 100 mg PO DAILY [facility] Last Admin: 03/14/22 08:06 Dose: 100 mg Documented By: JANET Zinc Sulfate (Zinc Sulfate 220 Mg Capsule) 220 mg PO BID [facility] Last Admin: 03/14/22 20:18 Dose: 220 mg Documented By: JASON Labs CBC & Chem 7: 03/15/22 05:48 03/15/22 05:48 Labs: Laboratory Results - last 24 hr 03/11/22 03/14/22 03/14/22 11:49 06:04 07:57 MCV MCH MCHC RDW Plt Count MPV Absolute Nucleated RBC Nucleated RBC % (auto) Smear Path Review SEE NOTE Anion Gap Estim Creat Clear Calc Estimated GFR Fasting Glucose Calcium Magnesium Total Bilirubin Direct Bilirubin AST ALT Alkaline Phosphatase Total Protein Albumin Zinc 27 L Blood Type O Positive Antibody Screen NEGATIVE Crossmatch See Detail 03/15/22 03/15/22 05:48 05:48 MCV 93.0 MCH 33.5 H MCHC 36.0 RDW 18.3 H Plt Count 67 L MPV 12.0 Absolute Nucleated RBC 0.000 Nucleated RBC % (auto) 0.0 Smear Path Review Anion Gap 14 Estim Creat Clear Calc 48.8 Estimated GFR 39 Fasting Glucose 84 D Calcium 8.4 Magnesium 1.8 Total Bilirubin 17.3 H Direct Bilirubin 9.5 H AST 173 H ALT 62 H Alkaline Phosphatase 201 H Total Protein 6.5 Albumin 2.7 L Zinc Blood Type Antibody Screen Crossmatch Assessment and Plan (1) Acute kidney injury: Status: Acute (2) Alcoholic hepatitis: Status: Acute (3) Hepatic encephalopathy: Status: Acute (4) Acute blood loss anemia: Status: Acute Plan 57M with pmh alcohol dependence with cirrhosis presented with diarrhea and blood in stool acute blood loss symptomatic anemia due to gi bleed in patient with alcohol cirrhosis Hemoglobin dropped to 6.9, transfused 1 unit (4th) 03/14/22, hgb improved to 8.1 Continue ppi GI input appreciated, diverticular vs hemorrhoids, hold on endoscopy Stool studies showing Y.Enterocolitica , no more diarrhea now , changed abx to rocephin 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 and acute alcoholic hepatitis and elevated INR Mentation improving, mildly improved over the course of hospital stay INR 1.8 Continue rifaximin and lactulose for encephalopathy Holding lactulose for diarrhea follow INR and LFT Alcoholic hepatitis Bilirubin started to trend down ABIC score of 9.4, 25% survive at 90 days GI input appreciated, steroid therapy Prednisolone 40 mg daily for 4 weeks (started 03/08), to follow w GI as OP Monitor LFT abd distension - US.paracenteis today with albumin narayan secondary to hepatorenal syndrome s/p albumin 4 doses Start midodrine Nephrology input appreciated monitor BMP PHysical deconditioning seen by PT, recommended SNF placement alcohol dependence with withdrawal Advised complete abstinence from alcohol Finished phenobarb protocol Hypomagnesemia Resolved, Replacement given p.o. supplement hypothyroid synthroid Hypokalemia resolved Thrombocytopenia Not due to sepsis Stable, chronic, of likely from chronic liver disease and alcoholism dvt prophylaxis SCDs due to gi bleed and thrombocytopenia reason for continued hospitalization: Acute Alcoholic hepatitis, hepatorenal syndrome and acute kidney injury, physical deconditioning requiring repeat blood work and close monitoring pending safe discharge plan Quality Stroke Does the patient have a stroke diagnosis?: No VTE Prior VTE?: No VTE Risk Level:: Medical - moderate - high VTE Device Contraindication: N/A - Device Ordered VTE Drug Contraindication: Treatment Not Indicated
[2022-03-15] MEDS: Lidocaine HCl 1 % MPF 5 ML VIAL SUBCUT (09:48)
[2022-03-15] MEDS: Potassium Chloride ER 20 MEQ TAB.ER.PRT PO (10:02)
[2022-03-15] MEDS: Magnesium Oxide 400 MG TABLET PO ×2 (10:02→16:19)
[2022-03-15] MEDS: Escitalopram Oxalate 20 MG TABLET PO (10:03)
[2022-03-15] MEDS: Pyridoxine HCl (Vitamin B6) 50 MG TABLET 100 MG PO (10:03)
[2022-03-15] MEDS: Zinc Sulfate 220 MG CAPSULE PO ×2 (10:03→19:14)
[2022-03-15] MEDS: Multivitamin TABLET 1 TAB PO (10:03)
[2022-03-15] MEDS: Cyanocobalamin (Vitamin B-12) 1,000 MCG TABLET 1000 MCG PO (10:04)
[2022-03-15] MEDS: Atorvastatin Calcium 10 MG TABLET PO (10:04)
[2022-03-15] MEDS: Thiamine HCL 100 MG TABLET PO (10:04)
[2022-03-15] MEDS: Folic Acid 1 MG TABLET PO (10:04)
[2022-03-15] MEDS: rifAXIMin 550 MG TABLET PO ×2 (10:04→19:14)
[2022-03-15] MEDS: Midodrine HCl 5 MG TABLET PO ×3 (10:04→19:14)
[2022-03-15] MEDS: 0.9 % Sodium Chloride Flush 3 ML SYRINGE IVFLUSH ×3 (10:05→19:14)
[2022-03-15] MEDS: prednisoLONE sodium phosphate 15 MG/5 ML SOLUTION 40 MG PO (10:05)
[2022-03-15 10:07] LABS: MN% 85.7 %; PMN% 14.3 %; WBC Peritoneal Fluid 0.035 X10*3/uL
[2022-03-15 10:08] LABS: RBC Peritoneal Fluid < 0.002 X10*6/uL
[2022-03-15] MEDS: Albumin Human 25 % 100 ML IV ×2 (10:09→11:09)
--- NOTE | 2022-03-15 10:11 | PC.NURSE ---
No albumin needed during paracentesis, per Dr Enriquez. Dr Min was notified at 0950am.
--- NOTE | 2022-03-15 10:50 | PM.PNNEP ---
Subjective Subjective Date of Service: 03/15/22 Interval history: Events noted. All recent data reviewed; Renal function better Physical Exam Vital Signs: Vital Signs: Last Vital Signs Temp 97.6 F 03/15/22 09:30 Pulse 48 L 03/15/22 09:30 Resp 15 03/15/22 09:30 BP 126/67 03/15/22 09:30 Pulse Ox 98 03/15/22 09:30 O2 Del Method 03/15/22 09:30 BMI result Body Mass Index 24.5 Const: General: no acute distress Eyes: EOM: EOMs intact bilaterally Neck: Neck: Yes supple Resp: Auscultation: diminished lung sounds Cardio: Rate: regular rate GI: Palpation (GI): Soft to palpation Neuro: General: moves all extremities Objective Data Labs CBC & Chem 7: 03/15/22 05:48 03/15/22 05:48 Labs: Laboratory Results - last 24 hr 03/11/22 03/14/22 03/14/22 11:49 06:04 07:57 WBC RBC Hgb Hct MCV MCH MCHC RDW Plt Count MPV Absolute Nucleated RBC Nucleated RBC % (auto) Smear Path Review SEE NOTE Sodium Potassium Chloride Carbon Dioxide Anion Gap BUN Creatinine Estim Creat Clear Calc Estimated GFR Fasting Glucose Calcium Magnesium Total Bilirubin Direct Bilirubin AST ALT Alkaline Phosphatase Total Protein Albumin Peritoneal WBC Peritoneal RBC Zinc 27 L Crossmatch See Detail 03/15/22 03/15/22 03/15/22 05:48 05:48 09:30 WBC 6.5 RBC 2.42 L Hgb 8.1 L Hct 22.5 L MCV 93.0 MCH 33.5 H MCHC 36.0 RDW 18.3 H Plt Count 67 L MPV 12.0 Absolute Nucleated RBC 0.000 Nucleated RBC % (auto) 0.0 Smear Path Review Sodium 138 Potassium 4.0 Chloride 110 H Carbon Dioxide 18 L Anion Gap 14 BUN 25 H Creatinine 1.81 H Estim Creat Clear Calc 48.8 Estimated GFR 39 Fasting Glucose 84 D Calcium 8.4 Magnesium 1.8 Total Bilirubin 17.3 H Direct Bilirubin 9.5 H AST 173 H ALT 62 H Alkaline Phosphatase 201 H Total Protein 6.5 Albumin 2.7 L Peritoneal WBC 0.035 Peritoneal RBC < 0.002 Zinc Crossmatch Procedures Date of Service Date of Service: 03/15/22 Assessment & Plan Assessment and plan (1) Acute kidney injury: Status: Acute Assessment and Plan: VIKAS likely due to HRS Has HRS 2 @ baseline; Urine sodium < 20 C/W 25 % Albumin 25 Gram Q 6 hourly( total 100 Gram /day) On Prednsione; D/Leonid bactrim; C/W Midodrine 5 mg tid No indication for HD; Renal functionbetter Labs AM; Shall closely follow up Time Spent With Patient Time: Total time spent is greater than 50% in coordination of care (as documented) at patient's floor/unit and/or counseling patient: Progress Note: Quality Stroke Does the patient have a stroke diagnosis?: No
[2022-03-15 11:03] LABS: BF Shift QC OK YES; Man Diluent Bkgrd OK YES
[2022-03-15 11:04] LABS: Lymphocyte Peritoneal Fl 28 %; Neutrophils Peritoneal Fluid 1 %; Other Peritioneal Fl 71 %
[2022-03-15] MEDS: cefTRIAXone sodium 1 GM in 0.9 % Sodium Chloride 50 ML IV (12:21)
--- NOTE | 2022-03-15 12:49 | PM.GIPN ---
Subjective Subjective Date of Service: 03/15/22 Interval History: feels better s/p paracentesis 2+L fluid removed per pt. Critical Care Time (minutes): 0 Physical Exam Vital Signs: Vital Signs: Last Vital Signs Temp 98.5 F 03/15/22 11:28 Pulse 45 L 03/15/22 11:28 Resp 16 03/15/22 11:28 BP 131/61 03/15/22 11:28 Pulse Ox 98 03/15/22 11:28 O2 Del Method 03/15/22 11:28 BMI result Body Mass Index 24.5 Const: Other: jaundiced GI: Other: abd less distended Objective Data Labs CBC & Chem 7: 03/15/22 05:48 03/15/22 05:48 Labs: Laboratory Results - last 24 hr 03/11/22 03/15/22 03/15/22 11:49 05:48 05:48 WBC 6.5 RBC 2.42 L Hgb 8.1 L Hct 22.5 L MCV 93.0 MCH 33.5 H MCHC 36.0 RDW 18.3 H Plt Count 67 L MPV 12.0 Absolute Nucleated RBC 0.000 Nucleated RBC % (auto) 0.0 Sodium 138 Potassium 4.0 Chloride 110 H Carbon Dioxide 18 L Anion Gap 14 BUN 25 H Creatinine 1.81 H Estim Creat Clear Calc 48.8 Estimated GFR 39 Fasting Glucose 84 D Calcium 8.4 Magnesium 1.8 Total Bilirubin 17.3 H Direct Bilirubin 9.5 H AST 173 H ALT 62 H Alkaline Phosphatase 201 H Total Protein 6.5 Albumin 2.7 L Peritoneal WBC Peritoneal RBC Periton Neutrophils Periton Lymphocytes Peritoneal Other Cells Zinc 27 L 03/15/22 09:30 WBC RBC Hgb Hct MCV MCH MCHC RDW Plt Count MPV Absolute Nucleated RBC Nucleated RBC % (auto) Sodium Potassium Chloride Carbon Dioxide Anion Gap BUN Creatinine Estim Creat Clear Calc Estimated GFR Fasting Glucose Calcium Magnesium Total Bilirubin Direct Bilirubin AST ALT Alkaline Phosphatase Total Protein Albumin Peritoneal WBC 0.035 Peritoneal RBC < 0.002 Periton Neutrophils 1 Periton Lymphocytes 28 Peritoneal Other Cells 71 Zinc Procedures Date of Service Date of Service: 03/15/22 Progress Note: A&P Assessment and plan (1) Alcoholic hepatitis: Status: Acute Assessment and Plan: labs better, cont steroids x30 d check ascites fluid labs ? restart diuretics for ascites if ok with renal Time Spent With Patient Time: Total time spent is greater than 50% in coordination of care (as documented) at patient's floor/unit and/or counseling patient: Quality Stroke Does the patient have a stroke diagnosis?: No VTE Prior VTE?: No VTE Risk Level:: Medical - moderate - high VTE Device Contraindication: N/A - Device Ordered VTE Drug Contraindication: Treatment Not Indicated
--- NOTE | 2022-03-15 16:16 | MHC.CM.PN ---
PATIENT RECEIVED ALBUMIN PLAN IS RE CHECK LABS ON SATURDAY FOR POTENTIAL DC SNF REFERRALS UPDATED
[2022-03-16 01:08] LABS: Albumin Peritoneal Fluid 0.4 GM/DL; Glucose Peritoneal Fluid 103 MG/DL; Total Protein Peritoneal Fluid 0.9 GM/DL
[2022-03-16 04:00] VITALS: BP 128/68; PULSE 50; RESP 17; TEMP 36.3; O2SAT 98
[2022-03-16 05:51] LABS: Hematocrit 24.3 % (42.0-52.0); Hemoglobin 8.5 g/dl (14.0-18.0); Mean Corpuscular Hemoglobin 33.1 pg (27.0-33.0); Mean Corpuscular Volume 94.6 fL (80.0-98.0); Mean Platelet Volume 11.3 fL (9.4-12.4); Platelet Count 78 X10*3/uL (160-400); Red Blood Count 2.57 X10*6/uL (4.60-5.80); Red Cell Distribution Width 18.7 % (11.0-16.0); White Blood Count 6.7 X10*3/uL (4.8-10.8)
[2022-03-16 06:12] LABS: Anion Gap 11 (12-20); Blood Urea Nitrogen 24 mg/dL (9-16); Calcium 8.9 mg/dL (8.4-10.2); Carbon Dioxide 20 mmol/L (22-29); Chloride 110 mmol/L (96-108); Creatinine Clr Calc Pharmacy 49.6; Estimated Glomerular Filt Rate 39; Glucose Fasting 96 mg/dL (60-99); Potassium 4.4 mmol/L (3.3-5.1); Sodium 137 mmol/L (135-145)
[2022-03-16] MEDS: Levothyroxine Sodium 25 MCG TABLET PO (06:21)
[2022-03-16] MEDS: Omeprazole 40 MG CAPSULE.DR PO (06:21)
[2022-03-16 07:29] VITALS: BP 123/67; PULSE 47; RESP 18; TEMP 36.7; O2SAT 99
[2022-03-16] MEDS: Cyanocobalamin (Vitamin B-12) 1,000 MCG TABLET 1000 MCG PO (08:59)
[2022-03-16] MEDS: Pyridoxine HCl (Vitamin B6) 50 MG TABLET 100 MG PO (08:59)
[2022-03-16] MEDS: Escitalopram Oxalate 20 MG TABLET PO (08:59)
[2022-03-16] MEDS: prednisoLONE sodium phosphate 15 MG/5 ML SOLUTION 40 MG PO (08:59)
[2022-03-16] MEDS: Multivitamin TABLET 1 TAB PO (09:00)
[2022-03-16] MEDS: Magnesium Oxide 400 MG TABLET PO (09:00)
[2022-03-16] MEDS: Zinc Sulfate 220 MG CAPSULE PO (09:00)
[2022-03-16] MEDS: Potassium Chloride ER 20 MEQ TAB.ER.PRT PO (09:00)
[2022-03-16] MEDS: Thiamine HCL 100 MG TABLET PO (09:00)
[2022-03-16] MEDS: rifAXIMin 550 MG TABLET PO (09:00)
[2022-03-16] MEDS: Midodrine HCl 5 MG TABLET PO (09:01)
[2022-03-16] MEDS: Folic Acid 1 MG TABLET PO (09:01)
[2022-03-16] MEDS: Atorvastatin Calcium 10 MG TABLET PO (09:01)
[2022-03-16] MEDS: 0.9 % Sodium Chloride Flush 3 ML SYRINGE IVFLUSH (09:01)
[2022-03-16 09:28] VITALS: BP 123/67; PULSE 47; O2SAT 99
--- NOTE | 2022-03-16 09:43 | PM.PNNEP ---
Subjective Subjective Date of Service: 03/16/22 Interval history: feels better s/p paracentesis 2+L fluid removed Physical Exam Vital Signs: Vital Signs: Last Vital Signs Temp 98.1 F 03/16/22 07:29 Pulse 47 L 03/16/22 09:28 Resp 18 03/16/22 07:29 BP 123/67 03/16/22 09:28 Pulse Ox 99 03/16/22 09:28 O2 Del Method 03/16/22 07:29 BMI result Body Mass Index 24.5 Const: Other: jaundiced General: cooperative and no acute distress Orientation/consciousness: patient oriented x3 Eyes: General: appearance normal, both eyes and all related structures EOM: EOMs intact bilaterally Neck: Neck: Yes supple Resp: Effort & Inspection: normal respiratory effort Auscultation: clear to auscultation bilaterally and diminished lung sounds Cardio: Rate: regular rate Rhythm: regular rhythm GI: Other: abd less distended Palpation (GI): Soft to palpation Auscultation: normal bowel sounds Skin: Other: Jaundiced Neuro: General: patient oriented x3 and moves all extremities Cognition (Neuro): normal cognition Extrem: Other: no edema General: Yes normal to inspection and Yes no pedal edema Objective Data Labs CBC & Chem 7: 03/16/22 05:25 03/16/22 05:25 Labs: Laboratory Results - last 24 hr 03/15/22 03/15/22 03/16/22 09:30 09:30 05:25 WBC 6.7 RBC 2.57 L Hgb 8.5 L Hct 24.3 L MCV 94.6 MCH 33.1 H MCHC 35.0 RDW 18.7 H Plt Count 78 L MPV 11.3 Absolute Nucleated RBC 0.000 Nucleated RBC % (auto) 0.0 Sodium Potassium Chloride Carbon Dioxide Anion Gap BUN Creatinine Estim Creat Clear Calc Estimated GFR Fasting Glucose Calcium Peritoneal WBC 0.035 Peritoneal RBC < 0.002 Periton Neutrophils 1 Periton Lymphocytes 28 Peritoneal Other Cells 71 Peritoneal Tot Protein 0.9 Peritoneal Albumin 0.4 Peritoneal Glucose 103 03/16/22 05:25 WBC RBC Hgb Hct MCV MCH MCHC RDW Plt Count MPV Absolute Nucleated RBC Nucleated RBC % (auto) Sodium 137 Potassium 4.4 Chloride 110 H Carbon Dioxide 20 L Anion Gap 11 L BUN 24 H Creatinine 1.78 H Estim Creat Clear Calc 49.6 Estimated GFR 39 Fasting Glucose 96 Calcium 8.9 Peritoneal WBC Peritoneal RBC Periton Neutrophils Periton Lymphocytes Peritoneal Other Cells Peritoneal Tot Protein Peritoneal Albumin Peritoneal Glucose Microbiology Microbiology Results: Microbiology 03/15/22 09:30 Ascites Fluid Gram Stain - Final 03/15/22 09:30 Ascites Fluid Anaerobic Culture - Preliminary No growth to date. 03/15/22 09:30 Ascites Fluid Body Fluid Culture - Preliminary No growth after 1 day Procedures Date of Service Date of Service: 03/16/22 Assessment & Plan Assessment and plan (1) Alcoholic hepatitis: Status: Acute Assessment and Plan: labs better, cont steroids x30 d ok to restart diuretics as prior doses Time Spent With Patient Time: Total time spent is greater than 50% in coordination of care (as documented) at patient's floor/unit and/or counseling patient: Progress Note: Quality Stroke Does the patient have a stroke diagnosis?: No
--- NOTE | 2022-03-16 09:52 | PM.DS ---
DS: Providers Provider Date of Service: 03/16/22 Date of admission: 03/05/22 22:25 Primary care physician: Fernando Martin MD Consults: 03/05/22 22:23 Consult to Gastroenterology Routine Consulting Provider: John Kerr Reason for consultation: GI bleed Has provider been notified: No 03/13/22 07:43 Consult to Nephrology Routine Consulting Provider: Marcus Mitchell Reason for consultation: VIKAS in acute alcoholic hepatitis, HRS? DS: Diagnosis Discharge Diagnosis (1) Alcoholic hepatitis: Status: Acute DS: Summary Hospital Course Hospital Course: from initi hpi: 49-year-old male with past medical history of liver cirrhosis, history of pulmonary embolism, asthma, presents to the hospital with complaints of diarrhea will start Guerline blood in the diarrhea that started yesterday.? He reports that he has had diarrhea for 5 days, and then yesterday noticed blood.? He does have history of EGD showing esophageal varices, but reports no hemoptysis or hematemesis. Patient otherwise denies any chest pain, no abdominal pain, no urinary symptoms and no lower extremity edema.? No numbness or weakness or tingling, patient also reports that he notices skin changes turning yellow since yesterday.? Denies any confusion, and no changes in his mentation. On arrival to the ED patient hemodynamically stable with no significant abnormalities Labs are significant for hemoglobin of 7.5 the dropped from 8.5 on 02/22, with a baseline of 10.1 in October, hematocrit 21.6, MCV of 98.2, potassium of 3.6, total bilirubin of 13.2, direct 8.4, AST of 2 4, ALT of 41, alk-phos of 319, BNP of 877, lipase of 96, COVID-19 negative, stool occult blood positive Patient started on octreotide, pantoprazole, and will be admitted for further management hospital course: Patient was admitted with acute blood loss anemia due to GI bleed in patient with alcoholic cirrhosis. he received 4 units total during hospitalization. Hemoglobin has remained stable around 8. Was continued on PPI. he was seen by GI who recommended holding off on endoscopy at this time. Stool studies came back positive for Y. enterocolotica the patient received course of Rocephin. Patient also presented with buttock encephalopathy secondary to alcoholic cirrhosis and acute alcoholic hepatitis. He was given rifaximin and lactulose, though lactulose was mostly held due to diarrhea. His bilirubin improved, mental status returned to baseline. He did receive paracentesis for symptomatic ascites that was negative for SBP. On discharge patient will continue prednisolone taper over 1 month. He will follow up with GI. Course was complicated by acute kidney injury secondary to hepatorenal syndrome. Patient received albumin and midodrine with improvement but not resolution of acute kidney injury. He will be restarted on diuretics March 20. For patient's alcohol dependence with withdrawal he completed phenobarbital protocol. For patient's hypomagnesemia this was replaced. for hypothyroidism he was given Synthroid. Time Spent with Patient Time attestation: Total time spent providing and/or coordinating discharge services: Discharge coordination time: Greater than 30 minutes Quality: Safe Use of Opioids Does Pt have an Active Cancer Diagnosis on the Problem List?: No Quality: Stroke Does the patient have a stroke diagnosis?: No Physical Exam Vital Signs: Vital Signs: Last Vital Signs Temp 98.1 F 03/16/22 07:29 Pulse 47 L 03/16/22 09:28 Resp 18 03/16/22 07:29 BP 123/67 03/16/22 09:28 Pulse Ox 99 03/16/22 09:28 O2 Del Method 03/16/22 07:29 BMI result Body Mass Index 24.5 Const: Other: jaundiced General: cooperative and no acute distress Orientation/consciousness: patient oriented x3 Eyes: General: appearance normal, both eyes and all related structures EOM: EOMs intact bilaterally Neck: Neck: Yes supple Resp: Effort & Inspection: normal respiratory effort Auscultation: clear to auscultation bilaterally and diminished lung sounds Cardio: Rate: regular rate Rhythm: regular rhythm GI: Other: abd less distended Palpation (GI): Soft to palpation Auscultation: normal bowel sounds Skin: Other: Jaundiced Neuro: General: patient oriented x3 and moves all extremities Cognition (Neuro): normal cognition Extrem: Other: no edema General: Yes normal to inspection and Yes no pedal edema DS: Data Data Completed and Pending Completed studies during hospitalization [Text1]: Procedures Drainage of Peritoneal Cavity, Percutaneous Approach (04/10/20) Inspection of Upper Intestinal Tract, Via Natural or Artificial Opening Endoscopic (07/25/21) Transfusion of Nonautologous Red Blood Cells into Peripheral Vein, Percutaneous Approach (07/25/21) Labs on day of discharge: Laboratory Results - last 24 hr 03/15/22 03/15/22 03/16/22 09:30 09:30 05:25 WBC 6.7 RBC 2.57 L Hgb 8.5 L Hct 24.3 L MCV 94.6 MCH 33.1 H MCHC 35.0 RDW 18.7 H Plt Count 78 L MPV 11.3 Absolute Nucleated RBC 0.000 Nucleated RBC % (auto) 0.0 Sodium Potassium Chloride Carbon Dioxide Anion Gap BUN Creatinine Estim Creat Clear Calc Estimated GFR Fasting Glucose Calcium Peritoneal WBC 0.035 Peritoneal RBC < 0.002 Periton Neutrophils 1 Periton Lymphocytes 28 Peritoneal Other Cells 71 Peritoneal Tot Protein 0.9 Peritoneal Albumin 0.4 Peritoneal Glucose 103 03/16/22 05:25 WBC RBC Hgb Hct MCV MCH MCHC RDW Plt Count MPV Absolute Nucleated RBC Nucleated RBC % (auto) Sodium 137 Potassium 4.4 Chloride 110 H Carbon Dioxide 20 L Anion Gap 11 L BUN 24 H Creatinine 1.78 H Estim Creat Clear Calc 49.6 Estimated GFR 39 Fasting Glucose 96 Calcium 8.9 Peritoneal WBC Peritoneal RBC Periton Neutrophils Periton Lymphocytes Peritoneal Other Cells Peritoneal Tot Protein Peritoneal Albumin Peritoneal Glucose Preliminary micro results at discharge 03/15/22 09:30 Anaerobic Culture - Preliminary Ascites Fluid No growth to date. Body Fluid Culture - Preliminary No growth after 1 day Discharge Plan Discharge Anticipated Discharge Date/Time: 03/16/22 09:45 Patient Disposition: Home, Self-Care Discharge Diagnosis: hepatitis Referrals: Fernando Martin MD [Primary Care Provider] - 1 Week Discharge Medications: New prednisolone sodium phosphate 15 mg/5 mL (3 mg/mL) Solution 30 mg PO DAILY Qty: 237 0RF Rx Instructions: decrease by 10mg per day every 7 days for 3 week total. midodrine 5 mg Tablet 5 mg PO TID Qty: 90 0RF zinc sulfate [Zinc-220] 50 mg zinc (220 mg) Capsule 220 mg PO BID Qty: 60 0RF Xifaxan 550 mg Tablet 550 mg PO BID Qty: 60 0RF lactulose 20 gram/30 mL Solution 20 g PO .PRN Qty: 3000 0RF Continued pantoprazole 40 mg Tablet,Delayed Release (Dr/Ec) 40 mg PO DAILY albuterol sulfate 90 mcg/actuation Hfa Aerosol Inhaler 2 puff INHALATION Q4-6H PRN (Reason: Shortness Of Breath) potassium chloride [K-Tab] 20 mEq tablet extended release 20 meq PO DAILY Qty: 30 0RF escitalopram oxalate 20 mg Tablet 20 mg PO DAILY folic acid 1 mg Tablet 1 mg PO DAILY levothyroxine 25 mcg tablet 1 tab PO DAILY vitamin A 2,400 mcg capsule 1 cap PO DAILY multivitamin Tablet 1 tab PO DAILY atorvastatin 10 mg tablet 1 tab PO DAILY cyanocobalamin (vitamin B-12) 1,000 mcg Tablet 1,000 mcg PO DAILY thiamine HCl (vitamin B1) 100 mg Tablet 100 mg PO DAILY magnesium oxide 400 mg (241.3 mg magnesium) tablet 1 tab PO DAILY pyridoxine (vitamin B6) 100 mg Tablet 100 mg PO DAILY Held furosemide 40 mg Tablet 40 mg PO DAILY Qty: 30 0RF Hold Instructions: Resume on 03/19/22. Protocol: Hold for SBP< HOLD for SBP < : 90 Discontinued nadolol 40 mg Tablet 40 mg PO DAILY Discharge Orders: Discharge Order (Routine); Ordered 03/16/22 Ordered By: Zana Min Diet: Advance to usual diet Activity on Discharge: As tolerated Stand Alone Forms: Patient Portal Discharge page Care Plan Goals: recovery Health Concerns: alcohol hepatitis Plan of Treatment: no alcohol, meds as prescribed, follow up with GI Assessment: see above
--- NOTE | 2022-03-16 09:57 | MHC.CM.PN ---
Addendum entered by Danielle Clarke RN 03/16/22 15:03: PT DECLINING STR, [facility] WILL PROVIDE SN AND HOME PT W/SOC MONDAY 03/19, PT'S BROTHER AT BEDSIDE AND WILL TRANSPORT Original Note: PT MEDICALLY CLEARED FOR D/C, SNF REFERRAL UPDATED AND CM AWAITING BED OFFER.
[2022-03-16 11:08] VITALS: BP 108/65; PULSE 45; RESP 19; TEMP 36.3; O2SAT 97
[2022-03-16] MEDS: cefTRIAXone sodium 1 GM in 0.9 % Sodium Chloride 50 ML IV (11:59)
--- NOTE | 2022-03-16 13:58 | PM.GIPN ---
Subjective Subjective Date of Service: 03/16/22 Interval History: feels good Critical Care Time (minutes): 0 Physical Exam Vital Signs: Vital Signs: Last Vital Signs Temp 97.4 F 03/16/22 11:08 Pulse 45 L 03/16/22 11:08 Resp 19 03/16/22 11:08 BP 108/65 03/16/22 11:08 Pulse Ox 97 03/16/22 11:08 O2 Del Method 03/16/22 11:08 BMI result Body Mass Index 24.5 GI: Other: abdomen is nontender Objective Data Labs CBC & Chem 7: 03/16/22 05:25 03/16/22 05:25 Labs: Laboratory Results - last 24 hr 03/15/22 03/16/22 03/16/22 09:30 05:25 05:25 WBC 6.7 RBC 2.57 L Hgb 8.5 L Hct 24.3 L MCV 94.6 MCH 33.1 H MCHC 35.0 RDW 18.7 H Plt Count 78 L MPV 11.3 Absolute Nucleated RBC 0.000 Nucleated RBC % (auto) 0.0 Sodium 137 Potassium 4.4 Chloride 110 H Carbon Dioxide 20 L Anion Gap 11 L BUN 24 H Creatinine 1.78 H Estim Creat Clear Calc 49.6 Estimated GFR 39 Fasting Glucose 96 Calcium 8.9 Peritoneal Tot Protein 0.9 Peritoneal Albumin 0.4 Peritoneal Glucose 103 Microbiology Microbiology Results: Microbiology 03/15/22 09:30 Ascites Fluid Gram Stain - Final 03/15/22 09:30 Ascites Fluid Anaerobic Culture - Preliminary No growth to date. 03/15/22 09:30 Ascites Fluid Body Fluid Culture - Preliminary No growth after 1 day Procedures Date of Service Date of Service: 03/16/22 Progress Note: A&P Assessment and plan (1) Alcoholic hepatitis: Status: Acute Assessment and Plan: continue steroids can start diuretics per renal Time Spent With Patient Time: Total time spent is greater than 50% in coordination of care (as documented) at patient's floor/unit and/or counseling patient: Quality Stroke Does the patient have a stroke diagnosis?: No VTE Prior VTE?: No VTE Risk Level:: Medical - moderate - high VTE Device Contraindication: N/A - Device Ordered VTE Drug Contraindication: Treatment Not Indicated
[2022-03-16 14:51] VITALS: BP 128/69; PULSE 45; RESP 18; TEMP 36.4; O2SAT 97
--- NOTE | 2022-03-28 11:28 | W.MHC.F2F ---
Service Date Service Date: 03/28/22 Encounter Date of encounter: 04/16/22 Reasons for Services Signs and symptoms assessed: weakness Reason for penitentiary: medication management, medication treatment and teach disease management Homebound: Leaving the home is medically contraindicated at this time without the asist of a device and/or another person due th the listed conditions above and below. Reason homebound: unsteady gait / fall risk Certification: Based on the above findings, I certify that this patient is confined to the home and needs intermittent penitentiary care, physical therapy and/or speech therapy, or continues to need occupational therapy. The patient is under my care, and I have initiated the establishment of the plan of care. The patient will be followed by a physician who will periodically review the plan of care.
== END 2022-03-16 15:37 | disposition home or self-care (01) | DRG 280 ==
LOC: HO.ED 19:53 → HO.EDOVER 22:40 → HO.S3 03-07 13:51
PROVIDERS: Internal Medicine Gastroenterology; Radiology Diagnostic Radiology; Student in an Organized Health Care Education/Training Program; Admitting Provider Internal Medicine; Emergency Provider Emergency Medicine; PCP Internal Medicine; Visit Provider Internal Medicine
PROC: 0W9G3ZZ Drainage of Peritoneal Cavity, Percutaneous Approach (ICD-10-PCS; principal; 2022-03-15 09:00)
DX: K70.31 Alcoholic cirrhosis of liver with ascites (principal); K70.11 Alcoholic hepatitis with ascites; K76.7 Hepatorenal syndrome; K57.91 Diverticulosis of intestine, part unspecified, without perforation or abscess with bleeding; G62.1 Alcoholic polyneuropathy; D62 Acute posthemorrhagic anemia; K76.82 Hepatic encephalopathy; N17.9 Acute kidney failure, unspecified; I85.10 Secondary esophageal varices without bleeding; E83.42 Hypomagnesemia; E87.6 Hypokalemia; D69.59 Other secondary thrombocytopenia; F10.239 Alcohol dependence with withdrawal, unspecified; Z20.822 Contact with and (suspected) exposure to COVID-19; Z79.890 Hormone replacement therapy; Z86.711 Personal history of pulmonary embolism; Z79.899 Other long term (current) drug therapy
CPT/HCPCS: 36415; 49083; 71045; 74176; 80048; 80076; 81001; 81003; 82042; 82105; 82140; 82272; 82945; 83690; 83735; 83880; 84157; 84300; 84484; 84630; 85025; 85027; 85610; 85730; 86850; 86900; 86901; 86923; 87070; 87073; 87177; 87205; 87209; 87493; 87507; 87635; 89051; 89055; 93005; 93306; 97110; 97116; 97162; 97530; 99285; J0696; J1940; J2354; J2405; J2560; J3430; J3475; P9016; P9047

== ENCOUNTER 2022-04-14 10:30 | Outpatient (REF) | payer MEDICAID, SELFPAY ==
[2022-04-14 10:56] LABS: Hematocrit 27.7 % (42.0-52.0); Hemoglobin 9.3 g/dl (14.0-18.0); Mean Corpuscular HGB Conc 33.6 g/dl (31.0-36.0); Mean Corpuscular Volume 98.2 fL (80.0-98.0); Mean Platelet Volume 10.8 fL (9.4-12.4); Platelet Count 101 X10*3/uL (160-400); Red Blood Count 2.82 X10*6/uL (4.60-5.80); Red Cell Distribution Width 21.3 % (11.0-16.0); White Blood Count 6.2 X10*3/uL (4.8-10.8)
[2022-04-14 11:12] LABS: INTERNATIONAL NORM RATIO 1.8 (0.9-1.1); Prothrombin Time 21.2 SEC (10.0-13.1)
[2022-04-14 11:29] LABS: Alanine Aminotransferase 51 U/L (0-40); Albumin Level 2.6 g/dL (3.5-5.0); Alkaline Phosphatase 185 U/L (39-117); Anion Gap 13 (12-20); Aspartate Amino Transferase 78 U/L (5-37); Bilirubin Direct 6.5 mg/dL (0.0-0.5); Bilirubin Total 12.9 mg/dL (0.0-1.0); Blood Urea Nitrogen 17 mg/dL (9-16); Calcium 9.1 mg/dL (8.4-10.2); Carbon Dioxide 23 mmol/L (22-29); Chloride 105 mmol/L (96-108); Estimated Glomerular Filt Rate 46; Glucose Random 105 mg/dL (60-115); Potassium 5.2 mmol/L (3.3-5.1); Sodium 136 mmol/L (135-145)
== END 2022-04-14 10:31 | disposition home or self-care (01) ==
LOC: HO.LAB 10:30
PROVIDERS: PCP Internal Medicine; Visit Provider Internal Medicine Gastroenterology
DX: K70.11 Alcoholic hepatitis with ascites (principal)
CPT/HCPCS: 36415; 80053; 82248; 85027; 85610

== ENCOUNTER 2022-04-16 11:39 | Day surgery (SDC) | payer MEDICAID, SELFPAY ==
--- NOTE | ~2022-04-16 | US_ITS ---
EXAMINATION: US-GUIDED PARACENTESIS CLINICAL INFORMATION: Ascites. COMPARISON: Previous exam 03/15/2022. TECHNIQUE: Procedure and risk and benefits including bleeding, infection and low blood pressure were discussed with the patient and informed consent was obtained. The right lower quadrant was prepped and draped in the usual sterile fashion. The skin and soft tissues were anesthetized with 1% lidocaine plain using ultrasound guidance and a 5-[place] one-step catheter, access to the ascitic fluid was obtained. 8 L of clear yellow fluid was removed. No diagnostic specimen was sent. FINDINGS: There is a large amount of ascites. US/US paracentesis abd w/image IMPRESSION: Ultrasound-guided paracentesis.
[2022-04-16 11:58] VITALS: BMI 28.5
[2022-04-16 11:58] LABS: Basophils Percent Auto 0.8 % (0-2); Eosinophils Absolute Auto 0.1 X10*3/uL (0.0-0.4); Eosinophils Percent Auto 1.6 % (0-4); Hematocrit 26.3 % (42.0-52.0); Hemoglobin 8.7 g/dl (14.0-18.0); Imm Gran Abs Auto 0.01 X10*3/uL (0.00-0.03); Imm Gran Pct Auto 0.2 % (0.0-0.4); Lymphocytes Absolute Auto 1.4 X10*3/uL (1.2-4.9); Lymphocytes Percent Auto 26.2 % (20-40); Mean Corpuscular HGB Conc 33.1 g/dl (31.0-36.0); Mean Corpuscular Volume 99.6 fL (80.0-98.0); Mean Platelet Volume 10.2 fL (9.4-12.4); Monocytes Absolute Auto 1.1 X10*3/uL (0.1-1.2); Neutrophils Absolute Auto 2.6 x10*3/uL (2.0-8.3); Neutrophils Percent Auto 49.7 % (45-73); Red Blood Count 2.64 X10*6/uL (4.60-5.80); Red Cell Distribution Width 21.1 % (11.0-16.0); SCAN SMEAR FLAG 1; White Blood Count 5.2 X10*3/uL (4.8-10.8)
[2022-04-16 12:00] LABS: MANUAL DIFF FLAG NO; Monocytes Percent Auto 21.5 % (2-11); Platelet Count 94 X10*3/uL (160-400)
[2022-04-16 12:06] LABS: INTERNATIONAL NORM RATIO 1.8 (0.9-1.1); Prothrombin Time 21.7 SEC (10.0-13.1)
[2022-04-16 12:09] LABS: Partial Thromboplastin Time 36.1 SEC (26.0-36.4)
--- NOTE | 2022-04-16 14:39 | HO.RADPN ---
RADIOLOGY Narrative Narrative: RLQ paracentesis using 5 fr catheter. Large volume clear yellow fluid removed. Albumin given. No specimen sent.
[2022-04-16 14:58] VITALS: BP 119/54; PULSE 71; RESP 18; TEMP 36.6; O2SAT 97
[2022-04-16] MEDS: Lidocaine HCl 1 % MPF 5 ML VIAL 10 ML SUBCUT (14:58)
[2022-04-16 15:13] VITALS: BP 123/62; PULSE 79; RESP 15; O2SAT 97
[2022-04-16 15:45] VITALS: BP 126/64; PULSE 83; RESP 16; TEMP 37; O2SAT 98
== END 2022-04-16 16:04 | disposition home or self-care (01) ==
PROVIDERS: Radiology Diagnostic Radiology; PCP Internal Medicine; Visit Provider Internal Medicine Gastroenterology
DX: K70.11 Alcoholic hepatitis with ascites (principal); D68.52 Prothrombin gene mutation; Z86.711 Personal history of pulmonary embolism; Z86.718 Personal history of other venous thrombosis and embolism
CPT/HCPCS: 36415; 49083; 85025; 85610; 85730; P9047

== ENCOUNTER 2022-04-26 11:52 | Outpatient (REF) | payer MEDICAID, SELFPAY ==
[2022-04-26 12:03] LABS: MANUAL DIFF FLAG NO
[2022-04-26 13:26] LABS: Basophils Absolute Auto 0.1 X10*3/uL (0.0-0.2); Basophils Percent Auto 1.1 % (0-2); Eosinophils Absolute Auto 0.2 X10*3/uL (0.0-0.4); Eosinophils Percent Auto 3.2 % (0-4); Hematocrit 28.2 % (42.0-52.0); Hemoglobin 9.2 g/dl (14.0-18.0); Imm Gran Abs Auto 0.02 X10*3/uL (0.00-0.03); Imm Gran Pct Auto 0.4 % (0.0-0.4); Lymphocytes Absolute Auto 1.7 X10*3/uL (1.2-4.9); Lymphocytes Percent Auto 31.3 % (20-40); Mean Corpuscular HGB Conc 32.6 g/dl (31.0-36.0); Mean Corpuscular Hemoglobin 32.6 pg (27.0-33.0); Mean Platelet Volume 10.7 fL (9.4-12.4); Monocytes Absolute Auto 0.9 X10*3/uL (0.1-1.2); Monocytes Percent Auto 16.9 % (2-11); Neutrophils Absolute Auto 2.6 x10*3/uL (2.0-8.3); Neutrophils Percent Auto 47.1 % (45-73); Platelet Count 153 X10*3/uL (160-400); Red Blood Count 2.82 X10*6/uL (4.60-5.80); Red Cell Distribution Width 19.1 % (11.0-16.0); White Blood Count 5.6 X10*3/uL (4.8-10.8)
[2022-04-26 13:35] LABS: INTERNATIONAL NORM RATIO 1.8 (0.9-1.1); Prothrombin Time 21.2 SEC (10.0-13.1)
[2022-04-26 13:52] LABS: Alanine Aminotransferase 35 U/L (0-40); Albumin Level 2.9 g/dL (3.5-5.0); Alkaline Phosphatase 200 U/L (39-117); Anion Gap 12 (12-20); Aspartate Amino Transferase 70 U/L (5-37); Bilirubin Direct 4.8 mg/dL (0.0-0.5); Bilirubin Total 9.6 mg/dL (0.0-1.0); Blood Urea Nitrogen 14 mg/dL (9-16); Carbon Dioxide 20 mmol/L (22-29); Chloride 107 mmol/L (96-108); Estimated Glomerular Filt Rate 43; Glucose Random 144 mg/dL (60-115); Potassium 5.3 mmol/L (3.3-5.1); Sodium 134 mmol/L (135-145); Total Protein 7.3 g/dL (6.5-8.0)
== END 2022-04-26 11:53 | disposition home or self-care (01) ==
LOC: HO.LAB 11:52
PROVIDERS: PCP Internal Medicine; Visit Provider Internal Medicine Gastroenterology
DX: K70.11 Alcoholic hepatitis with ascites (principal)
CPT/HCPCS: 36415; 80048; 80076; 85025; 85610

== ENCOUNTER 2022-06-20 13:57 | Inpatient (IN) | payer MEDICAID, SELFPAY ==
[2022-06-20] VITALS (7 sets, daily range): BP systolic 100–152; BP diastolic 68–82; PULSE 84–117; RESP 16–22; TEMP 36.6–37.2; O2SAT 93–98; BMI 23.2
--- NOTE | ~2022-06-20 | XR_ITS ---
EXAMINATION: XR CHEST CLINICAL INFORMATION: Obtunded COMPARISON: 03/05/2022 TECHNIQUE: Frontal view of the chest was obtained. FINDINGS: The heart is enlarged. There is new mild upper zone redistribution a small left pleural effusion may be present. No gross interstitial edema is seen. Increased opacity in retrocardiac region with obscuration of hemidiaphragm may be related to atelectasis/effusion. XR/XR chest 1V IMPRESSION: Cardiomegaly with mild upper zone redistribution and possible small left effusion. Mild CHF could explain this.
--- NOTE | ~2022-06-20 | US_ITS ---
EXAMINATION: ULTRASOUND-GUIDED PARACENTESIS. CLINICAL INFORMATION: Abdominal pain and ascites. COMPARISON: None TECHNIQUE: Following explaining ultrasound-guided paracentesis procedure, benefits and risk with patient's brother by phone in presence of IR nursing, a phone consent was obtained. Preliminary ultrasound imaging was obtained through the abdomen. An optimal site was selected along the left mid quadrant and marked with a marker. The marked area was cleaned and draped in usual sterile manner with 2% chlorhexidine solution. 1% lidocaine was injected at puncture site. Through a small skin incision a 4 [employer] catheter was advanced into the peritoneal space. After observing fluid return, stylet was withdrawn and catheter connected to vacuum bottle via connecting cannula. After obtaining all fluid and observing no more fluid return, stylet was withdrawn and complete hemostasis achieved at puncture site. A simple compressive dressing was applied at the puncture site. Patient tolerated procedure extremely well. Patient was monitored by ER nursing during the exam. FINDINGS: On pulmonary ultrasound imaging there is moderate ascites. Approximately 1.95 L of clear yellowish fluid was drained from the left lower quadrant. US/US paracentesis abd w/image IMPRESSION: Successful diagnostic paracentesis performed in the ED at bedside.
--- NOTE | ~2022-06-20 | CT_ITS ---
EXAMINATION: CT HEAD WITHOUT CONTRAST CLINICAL INFORMATION: Change in mental status. COMPARISON: CT head 02/22/2022. TECHNIQUE: Contiguous axial imaging was performed from the skull base to vertex without intravenous administration of contrast. This CT examination was performed using dose optimization techniques as appropriate, variously including the following: *Automated exposure control *Adjustment of mA and/or kV according to patient size (this includes techniques or standardized protocols for targeted exams where dose is matched to indication/reason for exam; i.e. extremities or head) *Use of iterative reconstruction technique DLP: 799 mGy-cm FINDINGS: There is no evidence of acute intracranial hemorrhage or edematous territorial infarction. Scattered hypoattenuation in the periventricular and deep white matter are consistent with moderate microangiopathy. Chronic lacunar infarcts in the bilateral basal ganglia. Membreno-white matter differentiation is preserved. Proportional prominence of the ventricles and sulcal spaces. No evidence for obstructive hydrocephalus. No abnormal mass effect or midline shift. No extra-axial fluid collections. No acute soft tissue or osseous abnormalities. Mucus retention cyst in the right maxillary sinus. Mild mucosal thickening of the paranasal sinuses. The mastoids and middle ear cavities are clear. CT/CT head/brain wo IV con IMPRESSION: 1. No evidence of acute intracranial hemorrhage or edematous territorial infarction. 2. Chronic basal ganglia lacunar infarcts. 3. Background of chronic microangiopathy with generalized cerebral volume loss.
--- NOTE | ~2022-06-20 | US_ITS ---
EXAMINATION: ULTRASOUND-GUIDED PARACENTESIS. CLINICAL INFORMATION: Ascites. Right lower quadrant pain. COMPARISON: None TECHNIQUE: Following explaining ultrasound-guided paracentesis procedure, benefits and risk, a written consent was obtained. Patient was placed supine on ultrasound stretcher and preliminary ultrasound imaging was obtained through the abdomen. An optimal site was selected, marked, cleaned and draped in usual sterile manner. 1% lidocaine was administered at puncture site. Through a small skin incision a 5 [employer] catheter was advanced into the peritoneal space and right lower quadrant. After observing fluid return, the stylet was withdrawn and catheter connected to vacuum bottle via connecting cannula. After observing normal fluid return, catheter was withdrawn and complete hemostasis achieved at puncture site. Sterile dressing applied postprocedure. Patient tolerated procedure extremely well. FINDINGS: On preliminary ultrasound imaging there is small amount of free fluid in the right perihepatic space. Approximately 1.9 L of clear rmei color fluid was drained from the right lower quadrant. US/US paracentesis abd w/image IMPRESSION: Successful ultrasound-guided therapeutic and diagnostic paracentesis performed.
--- NOTE | ~2022-06-20 | CT_ITS ---
EXAMINATION: CT ABDOMEN AND PELVIS WITHOUT CONTRAST CLINICAL INFORMATION: Abdominal pain. Distention. COMPARISON: None TECHNIQUE: Multidetector volumetric imaging was performed from the superior aspect of the liver through the pubic symphysis. Sagittal and coronal reformatted images were obtained on the technologist's workstation. This CT examination was performed using dose optimization techniques as appropriate, variously including the following: *Automated exposure control *Adjustment of mA and/or kV according to patient size (this includes techniques or standardized protocols for targeted exams where dose is matched to indication/reason for exam; i.e. extremities or head) *Use of iterative reconstruction technique DLP: 4.87+522.53+798.6 mGy-cm FINDINGS: LUNG BASES: Moderate volume left pleural effusion layering dependently. Small volume of atelectasis at the left lung base. Moderate-sized hiatal hernia. LIVER, GALLBLADDER, AND BILIARY TREE: Micronodular surface of liver consistent with cirrhosis. No focal liver lesion or intrahepatic bile duct dilatation. Calcified gallstone in the neck of the gallbladder measuring 1 cm. No gallbladder wall thickening. The gallbladder is not distended. There is a calcification measuring 5 mm at the mira hepatis is difficult to localize but suspect this is at the neck of the gallbladder or proximal CBD. Axial image 194/809 series 15. This calcification was not in this position on the prior exam of 03/05/2022. PANCREAS: Unremarkable. SPLEEN: There is splenomegaly. Spleen measures 13.5 cm. ADRENAL GLANDS: Unremarkable. KIDNEYS AND URETERS: The kidneys are normal in size, shape, and attenuation. No hydronephrosis, hydroureter, or calculi seen. No perinephric stranding. BLADDER: Tobar catheter within the bladder. GASTROINTESTINAL TRACT: There are numerous diverticula of the sigmoid colon. There is no diverticulitis. There is no bowel wall thickening /edema. There is no bowel obstruction. There is a moderate volume of stool in the colon. The appendix is nonvisualized . The small bowel loops are unremarkable. The stomach is normal. There is moderate hiatal hernia. Mesentery: Moderate volume of abdominal ascites. This is similar in volume to the prior study of 03/05/2022 ABDOMINAL WALL: There is a umbilical hernia containing ascitic fluid. LYMPH NODES: Normal. VASCULAR: Unremarkable. PELVIC VISCERA: Unremarkable. OSSEOUS STRUCTURES: Unremarkable. CT/CT abdomen pelvis wo IV con IMPRESSION: 1. Moderate volume of abdominal ascites. 2. Cirrhosis of liver. Splenomegaly. 3. Cholelithiasis. No acute change of the gallbladder wall. There is a 5 mm calcification at the mira hepatis which is difficult to localize but suspect this is at the neck of the gallbladder or proximal CBD. 4. Diverticulosis of the colon. No acute change of the bowel. 5. Tobar catheter within the bladder. 6. Left pleural effusion. Small volume of atelectasis at the left lung base. Fleischner guidelines were followed.
--- NOTE | 2022-06-20 14:59 | ECG_ITS ---
Test Reason : ALTERED MENTAL Blood Pressure : / mmHG Vent. Rate : 097 BPM Atrial Rate : 097 BPM P-R Int : 166 ms QRS Dur : 098 ms QT Int : 378 ms P-R-T Axes : 054 -19 063 degrees QTc Int : 480 ms Normal sinus rhythm Intra-ventricular conduction delay Abnormal ECG When compared with ECG of 05-MAR-2022 17:47, Vent. rate has increased BY 44 BPM Referred By: Tung Seymour Electronically Signed By:Cleveland Hunter
--- NOTE | 2022-06-20 15:02 | ED_ITS ---
HPI - General Adult General Chief complaint: Altered Mental Status Stated complaint: Lethargic, abd pain, confused per EMS Time Seen by Provider: 06/20/22 14:52 Source: EMS and old records reviewed Limitations: altered mental status History of Present Illness HPI narrative: HPI is not available. Patient is obtundent. He presents via EMS, apparently his called because he is lethargic. Patient is indeed very lethargic and nonverbal. Review of records shows he has a history of hepatic encephalopathy secondary to cirrhosis secondary to alcohol use disorder. Vital signs for EMS were stable Related Data Home Medications Medication Instructions Recorded Confirmed albuterol sulfate 90 mcg/actuation 2 puff inhalation Q4-6H PRN 05/26/20 03/05/22 aerosol inhaler Shortness Of Breath pantoprazole 40 mg tablet,delayed 40 mg PO DAILY 05/26/20 03/05/22 release atorvastatin 10 mg tablet 1 tab PO DAILY 07/25/21 03/05/22 cyanocobalamin (vitamin B-12) 1,000 mcg PO DAILY 07/25/21 03/05/22 1,000 mcg tablet magnesium oxide 400 mg (241.3 mg 1 tab PO DAILY 07/25/21 03/05/22 magnesium) tablet multivitamin 1 tab PO DAILY 07/25/21 03/05/22 pyridoxine (vitamin B6) 100 mg 100 mg PO DAILY 07/25/21 03/05/22 tablet thiamine HCl (vitamin B1) 100 mg 100 mg PO DAILY 07/25/21 03/05/22 tablet escitalopram oxalate 20 mg tablet 20 mg PO DAILY 03/05/22 03/05/22 folic acid 1 mg tablet 1 mg PO DAILY 03/05/22 03/05/22 levothyroxine 25 mcg tablet 1 tab PO DAILY 03/05/22 03/05/22 vitamin A 2,400 mcg capsule 1 cap PO DAILY 03/05/22 03/05/22 Previous Rx's Medication Instructions Recorded furosemide 40 mg tablet 40 mg PO DAILY #30 tabs 04/13/20 potassium chloride 20 mEq 20 meq PO DAILY #30 tabs 02/23/22 tablet,extended release (K-Tab) lactulose 20 gram/30 mL oral 20 g (30 mL) PO .PRN for 2-4 bm 03/16/22 solution per day #3,000 mL midodrine 5 mg tablet 5 mg PO TID #90 tabs 03/16/22 prednisolone sodium phosphate 15 30 mg (10 mL) PO DAILY #237 mL 03/16/22 mg/5 mL (3 mg/mL) oral solution rifaximin 550 mg tablet (Xifaxan) 550 mg PO BID #60 tabs 03/16/22 zinc sulfate 50 mg zinc (220 mg) 220 mg PO BID #60 caps 03/16/22 capsule (Zinc-220) Allergies Allergy/AdvReac Type Severity Reaction Status Date / Time No Known Allergies Allergy Verified 04/16/22 11:58 [No Known Allergies*] Review of Systems Review of Systems: Unable to obtain [facility] Past Medical History Medical History Asthma Cirrhosis of liver Hx of fall Hx pulmonary embolism Status post abdominal paracentesis Surgical History Hx of colonoscopy Hx of esophagogastroduodenoscopy Hx of right inguinal hernia repair Family History Family History (Updated 03/06/22 @ 06:53 by Rangel Staples MD) Other No family history of coronary artery disease Social History Social History Household Members: Other Household Members Other:: Mother Housing: House Do you presently have visiting nurse or other home services: No Alcohol intake: current Alcohol intake frequency: 3 or more drinks per day Alcohol type: wine Patient Tobacco Use Status: Never used Tobacco e-Cigarette/Vaping Use: Never Used Second Hand Smoke Exposure: No Substance Use Type: Marijuana Advance Directives: Yes Advance Directives on File: Yes Advance Directives Date on File: 08/09/21 service: No Current occupational status: employed Physical Exam ED Vital Signs: Vital Signs - 24 hr 06/20/22 14:45 06/20/22 15:46 06/20/22 16:57 Temperature 98.7 F 98.7 F Pulse Rate 87 98 115 H Respiratory Rate 19 16 22 H Blood Pressure 143/78 H 121/75 130/76 Pulse Oximetry 98 98 93 Oxygen Delivery Method Room Air Room Air Room Air 06/20/22 17:52 Temperature 99.0 F Pulse Rate 111 H Respiratory Rate 16 Blood Pressure 127/82 Pulse Oximetry 98 Oxygen Delivery Method Room Air BMI result Body Mass Index 23.2 Const Other: Patient is a ton did. He grimaces to pain with examination of his abdomen. His vital signs, however, are stable HENMT Other: Normocephalic atraumatic Eyes Other: Pupils are dilated but equal bilaterally. Approximately 6-7 mm. Neck Other: No meningismus Resp Other: Clear and equal bilaterally. Oxygen saturation 98%. Cardio Other: Regular rate and rhythm at approximately 80 beats per minute. No murmurs rubs or gallops GI Other: Distended abdomen. Positive fluid wave. Diffusely tender to palpation as evidence by patient grimacing. Skin Other: Jaundice. Warm and dry Neuro Other: Unable to assess Extrem Other: No obvious extremity trauma Medications Administered Discontinued Medications Generic Name Dose Route Start Last Admin Trade Name Freq PRN Reason Stop Dose Admin Sodium Chloride 500 mls @ 500 mls/hr 06/20/22 15:00 06/20/22 17:36 Ns IV 06/20/22 15:59 Infused .Q1H EVONNE Infusion Sodium Chloride 1,000 mls @ 999 mls/hr 06/20/22 16:15 06/20/22 17:36 Ns IV 06/20/22 17:15 999 mls/hr .Q1H1M EVONNE Administration Piperacillin Sod/Tazobactam 50 mls @ 100 mls/hr 06/20/22 16:11 06/20/22 17:35 Sod 3.375 gm/ Sodium Chloride IV 06/20/22 16:40 100 mls/hr ONCE ONE Administration Vancomycin HCl 1,500 mg/ 500 mls @ 333.333 mls/hr 06/20/22 16:11 06/20/22 17:37 Sodium Chloride IV 06/20/22 17:40 333.33 mls/hr ONCE ONE Administration Lactulose 200 gm 06/20/22 17:07 06/20/22 18:43 Lactulose 320 Gm/480 Ml Solution OR 06/20/22 17:08 200 gm ONCE ONE Administration Lidocaine HCl 10 ml 06/20/22 17:06 06/20/22 17:07 Lidocaine Hcl 1 % Mpf 5 Ml Vial SUBCUT 06/20/22 17:07 10 ml ONCE ONE Administration Lorazepam 1 mg 06/20/22 15:31 06/20/22 15:37 Lorazepam 2 Mg/Ml Vial IVPUSH 06/20/22 15:32 1 mg ONCE ONE Administration Medical Decision Making Medical Decision Making [facility] Narrative: Attended patient apparently with a history of static encephalopathy. This certainly could be because of today's lethargy. He has a tender abdomen however. Need to rule out ascites with SBP. At this moment in time, 15:06, there is no evidence to suspect sepsis. He is afebrile and not tachycardic. Blood pressure is stable. Other potential etiologies of his lethargy would include toxic syndrome or intoxication. Other electrolyte abnormality. Intracranial hemorrhage. Will start with broad-based workup and treat accordingly 15:32. Patient is now somewhat agitated. Will give Ativan to complete the workup. 16:07. Workup shows normal white count. He is anemic with a hemoglobin of 8.9 but this is at his baseline. This chemistries are significant for a creatinine of 2 which is slightly worse than his baseline. His anion gap acidosis which is also baseline. His bicarb is 21. He has lactic acid of 2.5 which is likely a product of his liver failure. Given lack of white count and fever with normal vital signs, there was still no significant evidence for sepsis at this time. Will continue to monitor and look for source of infection. Ultrasound paracentesis has been ordered. Await results. Ammonia is still pending. 16:11. Chest x-ray on my interpretation shows opacity in left lower lobe. Possible pneumonia, given mental status possible aspiration. Will treat with Zosyn and vancomycin which will also cover potential intra-abdominal infection if the patient has SBP. Continue IV fluids 19:27. CT scan of the abdomen shows no acute abnormalities. Will hospitalized for acute hepatic encephalopathy with an ammonia level of 170 Lab Data 06/20/22 15:13 06/20/22 15:13 Labs: Lab Results 06/20/22 06/20/22 06/20/22 Range/Units 15:13 15:13 15:13 WBC 4.9 (4.8-10.8) X10*3/uL RBC 2.84 L (4.60-5.80) X10*6/uL Hgb 8.9 L (14.0-18.0) g/dl Hct 26.2 L (42.0-52.0) % MCV 92.3 (80.0-98.0) fL MCH 31.3 (27.0-33.0) pg MCHC 34.0 (31.0-36.0) g/dl RDW 18.3 H (11.0-16.0) % Plt Count 114 L D (160-400) X10*3/uL MPV 10.1 (9.4-12.4) fL Immature Gran % (Auto) 0.2 (0.0-0.4) % Neut % (Auto) 54.0 (45-73) % Lymph % (Auto) 27.8 (20-40) % [place] % (Auto) 15.1 H (2-11) % Eos % (Auto) 2.3 (0-4) % Baso % (Auto) 0.6 (0-2) % Lymph # (Auto) 1.4 (1.2-4.9) X10*3/uL [place] # (Auto) 0.7 (0.1-1.2) X10*3/uL Eos # (Auto) 0.1 (0.0-0.4) X10*3/uL Baso # (Auto) 0.0 (0.0-0.2) X10*3/uL Abs Immat Gran (auto) 0.01 (0.00-0.03) X10*3/uL Absolute Neuts (auto) 2.6 (2.0-8.3) x10*3/uL Absolute Nucleated RBC 0.000 (0.0-0.012) X10*3/uL Nucleated RBC % (auto) 0.0 (0.0-0.2) /100WBC PT 21.1 H (10.0-13.1) SEC INR 1.8 H (0.9-1.1) D-Dimer High Sensitivty 5295 NG/ML Sodium 134 L (135-145) mmol/L Potassium 4.7 (3.3-5.1) mmol/L Chloride 108 (96-108) mmol/L Carbon Dioxide 21 L (22-29) mmol/L Anion Gap 10 L (12-20) BUN 18 H (9-16) mg/dL Creatinine 2.00 H (0.5-1.4) mg/dL Estim Creat Clear Calc 44.1 Estimated GFR 34 Random Glucose 129 H (60-115) mg/dL Lactic Acid (0.5-2.0) mmol/L Lactic Acid F/U @ 2Hr (0.5-2.0) mmol/L Calcium 8.9 (8.4-10.2) mg/dL Total Bilirubin 7.5 H (0.0-1.0) mg/dL AST 55 H (5-37) U/L ALT 24 (0-40) U/L Alkaline Phosphatase 222 H (39-117) U/L Ammonia (13-55) umol/L Troponin I High Sens (<3.5-35.0) ng/L B-Natriuretic Peptide (<100) pg/mL Total Protein 6.7 (6.5-8.0) g/dL Albumin 2.8 L (3.5-5.0) g/dL Lipase 52 (8-78) U/L TSH (0.32-4.0) uIU/mL Urine Color Urine Appearance Urine pH (5.0-9.0) Ur Specific [place] (1.005-1.025) Urine Protein (Neg-Trace) mg/dL Urine Glucose (UA) (Negative) mg/dL Urine Ketones (Negative) mg/dL Urine Blood (Negative) Urine Nitrite (Negative) Ur Leukocyte Esterase (Negative) Urine RBC (0-2) /HPF Urine WBC (0-5) /HPF Ur Squamous Epith Cells (0-2) /HPF Urine Bacteria (None Seen) Hyaline Casts (0-2) /LPF Peritoneal WBC X10*3/uL Peritoneal RBC X10*6/uL Periton Lymphocytes % Peritoneal Monocytes % Peritoneal Eosinophils % Peritoneal Other Cells % Urine Opiates Screen (Not Detect) Urine Fentanyl Screen (Not Detect) Ur Barbiturates Screen (Not Detect) Ur Phencyclidine Scrn (Not Detect) Ur Amphetamines Screen (Not Detect) U Benzodiazepines Scrn (Not Detect) Urine Cocaine Screen (Not Detect) U Marijuana (THC) Screen (Not Detect) Ethyl Alcohol mg/dL COVID-19 (LETICIA) (Negative) COVID-19 Clin Com 06/20/22 06/20/22 06/20/22 Range/Units 15:13 15:13 15:13 WBC (4.8-10.8) X10*3/uL RBC (4.60-5.80) X10*6/uL Hgb (14.0-18.0) g/dl Hct (42.0-52.0) % MCV (80.0-98.0) fL MCH (27.0-33.0) pg MCHC (31.0-36.0) g/dl RDW (11.0-16.0) % Plt Count (160-400) X10*3/uL MPV (9.4-12.4) fL Immature Gran % (Auto) (0.0-0.4) % Neut % (Auto) (45-73) % Lymph % (Auto) (20-40) % [place] % (Auto) (2-11) % Eos % (Auto) (0-4) % Baso % (Auto) (0-2) % Lymph # (Auto) (1.2-4.9) X10*3/uL [place] # (Auto) (0.1-1.2) X10*3/uL Eos # (Auto) (0.0-0.4) X10*3/uL Baso # (Auto) (0.0-0.2) X10*3/uL Abs Immat Gran (auto) (0.00-0.03) X10*3/uL Absolute Neuts (auto) (2.0-8.3) x10*3/uL Absolute Nucleated RBC (0.0-0.012) X10*3/uL Nucleated RBC % (auto) (0.0-0.2) /100WBC PT (10.0-13.1) SEC INR (0.9-1.1) D-Dimer High Sensitivty NG/ML Sodium (135-145) mmol/L Potassium (3.3-5.1) mmol/L Chloride (96-108) mmol/L Carbon Dioxide (22-29) mmol/L Anion Gap (12-20) BUN (9-16) mg/dL Creatinine (0.5-1.4) mg/dL Estim Creat Clear Calc Estimated GFR Random Glucose (60-115) mg/dL Lactic Acid 2.5 H* (0.5-2.0) mmol/L Lactic Acid F/U @ 2Hr (0.5-2.0) mmol/L Calcium (8.4-10.2) mg/dL Total Bilirubin (0.0-1.0) mg/dL AST (5-37) U/L ALT (0-40) U/L Alkaline Phosphatase (39-117) U/L Ammonia (13-55) umol/L Troponin I High Sens 9.8 (<3.5-35.0) ng/L B-Natriuretic Peptide 77 (<100) pg/mL Total Protein (6.5-8.0) g/dL Albumin (3.5-5.0) g/dL Lipase (8-78) U/L TSH (0.32-4.0) uIU/mL Urine Color Urine Appearance Urine pH (5.0-9.0) Ur Specific [place] (1.005-1.025) Urine Protein (Neg-Trace) mg/dL Urine Glucose (UA) (Negative) mg/dL Urine Ketones (Negative) mg/dL Urine Blood (Negative) Urine Nitrite (Negative) Ur Leukocyte Esterase (Negative) Urine RBC (0-2) /HPF Urine WBC (0-5) /HPF Ur Squamous Epith Cells (0-2) /HPF Urine Bacteria (None Seen) Hyaline Casts (0-2) /LPF Peritoneal WBC X10*3/uL Peritoneal RBC X10*6/uL Periton Lymphocytes % Peritoneal Monocytes % Peritoneal Eosinophils % Peritoneal Other Cells % Urine Opiates Screen (Not Detect) Urine Fentanyl Screen (Not Detect) Ur Barbiturates Screen (Not Detect) Ur Phencyclidine Scrn (Not Detect) Ur Amphetamines Screen (Not Detect) U Benzodiazepines Scrn (Not Detect) Urine Cocaine Screen (Not Detect) U Marijuana (THC) Screen (Not Detect) Ethyl Alcohol mg/dL COVID-19 (LETICIA) (Negative) COVID-19 Clin Com 06/20/22 06/20/22 06/20/22 Range/Units 15:13 15:13 15:13 WBC (4.8-10.8) X10*3/uL RBC (4.60-5.80) X10*6/uL Hgb (14.0-18.0) g/dl Hct (42.0-52.0) % MCV (80.0-98.0) fL MCH (27.0-33.0) pg MCHC (31.0-36.0) g/dl RDW (11.0-16.0) % Plt Count (160-400) X10*3/uL MPV (9.4-12.4) fL Immature Gran % (Auto) (0.0-0.4) % Neut % (Auto) (45-73) % Lymph % (Auto) (20-40) % [place] % (Auto) (2-11) % Eos % (Auto) (0-4) % Baso % (Auto) (0-2) % Lymph # (Auto) (1.2-4.9) X10*3/uL [place] # (Auto) (0.1-1.2) X10*3/uL Eos # (Auto) (0.0-0.4) X10*3/uL Baso # (Auto) (0.0-0.2) X10*3/uL Abs Immat Gran (auto) (0.00-0.03) X10*3/uL Absolute Neuts (auto) (2.0-8.3) x10*3/uL Absolute Nucleated RBC (0.0-0.012) X10*3/uL Nucleated RBC % (auto) (0.0-0.2) /100WBC PT (10.0-13.1) SEC INR (0.9-1.1) D-Dimer High Sensitivty NG/ML Sodium (135-145) mmol/L Potassium (3.3-5.1) mmol/L Chloride (96-108) mmol/L Carbon Dioxide (22-29) mmol/L Anion Gap (12-20) BUN (9-16) mg/dL Creatinine (0.5-1.4) mg/dL Estim Creat Clear Calc Estimated GFR Random Glucose (60-115) mg/dL Lactic Acid (0.5-2.0) mmol/L Lactic Acid F/U @ 2Hr (0.5-2.0) mmol/L Calcium (8.4-10.2) mg/dL Total Bilirubin (0.0-1.0) mg/dL AST (5-37) U/L ALT (0-40) U/L Alkaline Phosphatase (39-117) U/L Ammonia 170 H (13-55) umol/L Troponin I High Sens (<3.5-35.0) ng/L B-Natriuretic Peptide (<100) pg/mL Total Protein (6.5-8.0) g/dL Albumin (3.5-5.0) g/dL Lipase (8-78) U/L TSH 1.79 (0.32-4.0) uIU/mL Urine Color Urine Appearance Urine pH (5.0-9.0) Ur Specific [place] (1.005-1.025) Urine Protein (Neg-Trace) mg/dL Urine Glucose (UA) (Negative) mg/dL Urine Ketones (Negative) mg/dL Urine Blood (Negative) Urine Nitrite (Negative) Ur Leukocyte Esterase (Negative) Urine RBC (0-2) /HPF Urine WBC (0-5) /HPF Ur Squamous Epith Cells (0-2) /HPF Urine Bacteria (None Seen) Hyaline Casts (0-2) /LPF Peritoneal WBC X10*3/uL Peritoneal RBC X10*6/uL Periton Lymphocytes % Peritoneal Monocytes % Peritoneal Eosinophils % Peritoneal Other Cells % Urine Opiates Screen (Not Detect) Urine Fentanyl Screen (Not Detect) Ur Barbiturates Screen (Not Detect) Ur Phencyclidine Scrn (Not Detect) Ur Amphetamines Screen (Not Detect) U Benzodiazepines Scrn (Not Detect) Urine Cocaine Screen (Not Detect) U Marijuana (THC) Screen (Not Detect) Ethyl Alcohol < 10 mg/dL COVID-19 (LETICIA) Negative (Negative) COVID-19 Clin Com See Note 06/20/22 06/20/22 06/20/22 Range/Units 15:25 15:25 17:01 WBC (4.8-10.8) X10*3/uL RBC (4.60-5.80) X10*6/uL Hgb (14.0-18.0) g/dl Hct (42.0-52.0) % MCV (80.0-98.0) fL MCH (27.0-33.0) pg MCHC (31.0-36.0) g/dl RDW (11.0-16.0) % Plt Count (160-400) X10*3/uL MPV (9.4-12.4) fL Immature Gran % (Auto) (0.0-0.4) % Neut % (Auto) (45-73) % Lymph % (Auto) (20-40) % [place] % (Auto) (2-11) % Eos % (Auto) (0-4) % Baso % (Auto) (0-2) % Lymph # (Auto) (1.2-4.9) X10*3/uL [place] # (Auto) (0.1-1.2) X10*3/uL Eos # (Auto) (0.0-0.4) X10*3/uL Baso # (Auto) (0.0-0.2) X10*3/uL Abs Immat Gran (auto) (0.00-0.03) X10*3/uL Absolute Neuts (auto) (2.0-8.3) x10*3/uL Absolute Nucleated RBC (0.0-0.012) X10*3/uL Nucleated RBC % (auto) (0.0-0.2) /100WBC PT (10.0-13.1) SEC INR (0.9-1.1) D-Dimer High Sensitivty NG/ML Sodium (135-145) mmol/L Potassium (3.3-5.1) mmol/L Chloride (96-108) mmol/L Carbon Dioxide (22-29) mmol/L Anion Gap (12-20) BUN (9-16) mg/dL Creatinine (0.5-1.4) mg/dL Estim Creat Clear Calc Estimated GFR Random Glucose (60-115) mg/dL Lactic Acid (0.5-2.0) mmol/L Lactic Acid F/U @ 2Hr (0.5-2.0) mmol/L Calcium (8.4-10.2) mg/dL Total Bilirubin (0.0-1.0) mg/dL AST (5-37) U/L ALT (0-40) U/L Alkaline Phosphatase (39-117) U/L Ammonia (13-55) umol/L Troponin I High Sens (<3.5-35.0) ng/L B-Natriuretic Peptide (<100) pg/mL Total Protein (6.5-8.0) g/dL Albumin (3.5-5.0) g/dL Lipase (8-78) U/L TSH (0.32-4.0) uIU/mL Urine Color Dark Yellow Urine Appearance Clear Urine pH 6.0 (5.0-9.0) Ur Specific [place] 1.020 (1.005-1.025) Urine Protein Negative (Neg-Trace) mg/dL Urine Glucose (UA) Negative (Negative) mg/dL Urine Ketones Trace (Negative) mg/dL Urine Blood Negative (Negative) Urine Nitrite Negative (Negative) Ur Leukocyte Esterase Trace H (Negative) Urine RBC 0-2 (0-2) /HPF Urine WBC 6-10 H (0-5) /HPF Ur Squamous Epith Cells 0-2 (0-2) /HPF Urine Bacteria None Seen (None Seen) Hyaline Casts 3-5 (0-2) /LPF Peritoneal WBC 0.114 X10*3/uL Peritoneal RBC < 0.002 X10*6/uL Periton Lymphocytes 59 % Peritoneal Monocytes 33 % Peritoneal Eosinophils 1 % Peritoneal Other Cells 7 % Urine Opiates Screen Not Detected (Not Detect) Urine Fentanyl Screen Not Detected (Not Detect) Ur Barbiturates Screen Not Detected (Not Detect) Ur Phencyclidine Scrn Not Detected (Not Detect) Ur Amphetamines Screen Not Detected (Not Detect) U Benzodiazepines Scrn Not Detected (Not Detect) Urine Cocaine Screen Not Detected (Not Detect) U Marijuana (THC) Screen POSITIVE H (Not Detect) Ethyl Alcohol mg/dL COVID-19 (LETICIA) (Negative) COVID-19 Clin Com 06/20/22 Range/Units 17:57 WBC (4.8-10.8) X10*3/uL RBC (4.60-5.80) X10*6/uL Hgb (14.0-18.0) g/dl Hct (42.0-52.0) % MCV (80.0-98.0) fL MCH (27.0-33.0) pg MCHC (31.0-36.0) g/dl RDW (11.0-16.0) % Plt Count (160-400) X10*3/uL MPV (9.4-12.4) fL Immature Gran % (Auto) (0.0-0.4) % Neut % (Auto) (45-73) % Lymph % (Auto) (20-40) % [place] % (Auto) (2-11) % Eos % (Auto) (0-4) % Baso % (Auto) (0-2) % Lymph # (Auto) (1.2-4.9) X10*3/uL [place] # (Auto) (0.1-1.2) X10*3/uL Eos # (Auto) (0.0-0.4) X10*3/uL Baso # (Auto) (0.0-0.2) X10*3/uL Abs Immat Gran (auto) (0.00-0.03) X10*3/uL Absolute Neuts (auto) (2.0-8.3) x10*3/uL Absolute Nucleated RBC (0.0-0.012) X10*3/uL Nucleated RBC % (auto) (0.0-0.2) /100WBC PT (10.0-13.1) SEC INR (0.9-1.1) D-Dimer High Sensitivty NG/ML Sodium (135-145) mmol/L Potassium (3.3-5.1) mmol/L Chloride (96-108) mmol/L Carbon Dioxide (22-29) mmol/L Anion Gap (12-20) BUN (9-16) mg/dL Creatinine (0.5-1.4) mg/dL Estim Creat Clear Calc Estimated GFR Random Glucose (60-115) mg/dL Lactic Acid (0.5-2.0) mmol/L Lactic Acid F/U @ 2Hr 3.0 H* (0.5-2.0) mmol/L Calcium (8.4-10.2) mg/dL Total Bilirubin (0.0-1.0) mg/dL AST (5-37) U/L ALT (0-40) U/L Alkaline Phosphatase (39-117) U/L Ammonia (13-55) umol/L Troponin I High Sens (<3.5-35.0) ng/L B-Natriuretic Peptide (<100) pg/mL Total Protein (6.5-8.0) g/dL Albumin (3.5-5.0) g/dL Lipase (8-78) U/L TSH (0.32-4.0) uIU/mL Urine Color Urine Appearance Urine pH (5.0-9.0) Ur Specific [place] (1.005-1.025) Urine Protein (Neg-Trace) mg/dL Urine Glucose (UA) (Negative) mg/dL Urine Ketones (Negative) mg/dL Urine Blood (Negative) Urine Nitrite (Negative) Ur Leukocyte Esterase (Negative) Urine RBC (0-2) /HPF Urine WBC (0-5) /HPF Ur Squamous Epith Cells (0-2) /HPF Urine Bacteria (None Seen) Hyaline Casts (0-2) /LPF Peritoneal WBC X10*3/uL Peritoneal RBC X10*6/uL Periton Lymphocytes % Peritoneal Monocytes % Peritoneal Eosinophils % Peritoneal Other Cells % Urine Opiates Screen (Not Detect) Urine Fentanyl Screen (Not Detect) Ur Barbiturates Screen (Not Detect) Ur Phencyclidine Scrn (Not Detect) Ur Amphetamines Screen (Not Detect) U Benzodiazepines Scrn (Not Detect) Urine Cocaine Screen (Not Detect) U Marijuana (THC) Screen (Not Detect) Ethyl Alcohol mg/dL COVID-19 (LETICIA) (Negative) COVID-19 Clin Com Critical Care Time Critical Care Time Critical Care Time: Yes Total Critical Care Time: 90 Attestation: Patient with a Glascow coma Scale of 6 as he localizes pain but has no verbal or ocular responses. Discharge Plan Discharge Patient Disposition: Admitted As Inpatient Prescriptions: No Action furosemide 40 mg Tablet 40 mg PO DAILY Qty: 30 0RF Hold Instructions: Resume on 03/19/22. Protocol: Hold for SBP< HOLD for SBP < : 90 pantoprazole 40 mg Tablet,Delayed Release (Dr/Ec) 40 mg PO DAILY albuterol sulfate 90 mcg/actuation Hfa Aerosol Inhaler 2 puff INHALATION Q4-6H PRN (Reason: Shortness Of Breath) potassium chloride [K-Tab] 20 mEq tablet extended release 20 meq PO DAILY Qty: 30 0RF escitalopram oxalate 20 mg Tablet 20 mg PO DAILY folic acid 1 mg Tablet 1 mg PO DAILY levothyroxine 25 mcg tablet 1 tab PO DAILY vitamin A 2,400 mcg capsule 1 cap PO DAILY prednisolone sodium phosphate 15 mg/5 mL (3 mg/mL) Solution 30 mg PO DAILY Qty: 237 0RF Rx Instructions: decrease by 10mg per day every 7 days for 3 week total. midodrine 5 mg Tablet 5 mg PO TID Qty: 90 0RF zinc sulfate [Zinc-220] 50 mg zinc (220 mg) Capsule 220 mg PO BID Qty: 60 0RF Xifaxan 550 mg Tablet 550 mg PO BID Qty: 60 0RF lactulose 20 gram/30 mL Solution 20 g PO .PRN Qty: 3000 0RF multivitamin Tablet 1 tab PO DAILY atorvastatin 10 mg tablet 1 tab PO DAILY cyanocobalamin (vitamin B-12) 1,000 mcg Tablet 1,000 mcg PO DAILY thiamine HCl (vitamin B1) 100 mg Tablet 100 mg PO DAILY magnesium oxide 400 mg (241.3 mg magnesium) tablet 1 tab PO DAILY pyridoxine (vitamin B6) 100 mg Tablet 100 mg PO DAILY
--- OUTSIDE RECORDS SUMMARY | 2022-06-20 15:16 | XMS_ITS | Continuity of Care Document ---
:1965 Author Organization [facility] Address [address] [place] [id number]- Care Team Providers Name Role Phone Fernando Martin MD Primary Care Physician Encounter [facility] [place] Date(s): 06/08/20 - 06/15/20 [facility] [address] [place] [phone]- Encounter Diagnosis Ascites (Discharge Diagnosis) - 06/08/20 Alcoholic liver failure (Discharge Diagnosis) - 06/08/20 Attending Physician: Fernando Martin MD Allergies, Adverse Reactions, Alerts Substance Reaction Severity Status NKA Active Immunizations Given and Recorded Vaccine Date Status Refusal Reason hepatitis B adult vaccine 05/19/20 Given hepatitis B adult vaccine 04/21/20 Given influenza virus vaccine, inactivated 04/21/20 Given influenza virus vaccine, inactivated 03/30/19 Given influenza virus vaccine, inactivated 02/17/18 Given influenza virus vaccine, inactivated 07/04/17 Given influenza virus vaccine, inactivated 03/17/13 Given Hepatitis A Adult Vaccine 04/21/20 Given pneumococcal 23-valent vaccine 01/14/18 Given tetanus/diphtheria/pertussis, acel(Tdap) 10/03/16 Given Tetanus Toxoid Vaccine (oldterm) 08/25/06 Given Pneumococcal Vaccine (oldterm) 10/02/05 Given Medications folic acid 1 mg oral tablet 1 mg, 1, tablet, By Mouth, Daily, # 30 tablet, Refills 11, Tot. Refills 11, Maintenance, 05/03/20 10:47:00 EST, Route to Pharmacy Electronically, [facility] #[id number], 183, cm, 05/03/20 10:28:00EST, Height, 77.5, kg, 11/08/19 18:47:00 EDT, Dry... Start Date: 05/03/20 Stop Date: 04/28/21 Status: Orderedlactulose 10 gm/15 ml oral syrup 30 mL = 20 Gm, By Mouth, 3 times a day, # 480 mL, 11 Refills, Maintenance, 05/03/20 11:06:00 EST, Syrup, [facility] #[id number], Partial fill upon patient request if the prescription is for a schedule II opioid drug., 30 mL By Mouth 3 times a day... Start Date: 05/03/20 Status: OrderedLasix 40 mg oral tablet 80 mg, 2, tablet, By Mouth, Daily, # 30 tablet, Refills 11, Tot. Refills 11, Maintenance, 05/03/20 10:48:00 EST, Route to Pharmacy Electronically, [facility] #[id number], Partial fill upon patientrequest if the prescription is for a schedule II... Start Date: 05/03/20 Status: Orderedmagnesium oxide 400 mg oral tablet 1 tablet = 400 mg, By Mouth, Daily, for 30 days, # 30 tablet, 11 Refills, Acute 04/28/21 10:49:00 EST, 05/03/20 10:49:00 EST, Tablet, [facility] #[id number], Partial fill upon patient request if the prescription is for a schedule II opioid drug.,... Start Date: 05/03/20 Stop Date: 04/28/21 Status: OrderedMultivitamin Daily, 0 Refills, Maintenance, 05/03/20 10:49:00 EST, Partial fill upon patient request if the prescription is for a schedule II opioid drug. Start Date: 05/03/20 Status: Orderedpantoprazole 40 mg oral delayed release tablet 1 tablet = 40 mg, By Mouth, Daily, # 30 tablet, 11 Refills, Maintenance, 05/03/20 10:48:00 EST, EC Tablet, 183, cm, 05/03/20 10:28:00 EST, Height, 77.5, kg, 11/08/19 18:47:00 EDT, Dry Weight Start Date: 05/03/20 Status: OrderedProAir HFA 90 mcg/inh inhalation aerosol with adapter 2, puffs, Inhalation, 4 times a day, for 30 days, # 1 each, Refills 11, Tot. Refills 11, Hard Stop 08/14/20 8:46:00 EDT, 08/20/19 8:46:00 EDT, Route to Pharmacy Electronically, [id number], [facility] #[id number], 183, cm... Start Date: 08/20/19 Stop Date: 08/14/20 Status: Orderedsertraline 100 mg oral tablet 1.5 tablet = 150 mg, By Mouth, Daily, # 30 tablet, 11 Refills, Maintenance, 08/20/19 8:45:00 EDT, Tablet, [facility] #[id number], 183, cm, 07/24/19 10:31:00 EST, Height, 78.5, kg, 07/15/19 6:56:00EST, Dry Weight Start Date: 08/20/19 Status: Orderedspironolactone 100 mg oral tablet 200 mg, 2, tablet, By Mouth, Daily, # 30 tablet, Refills 11, Tot. Refills 11, Maintenance, 05/03/20 10:48:00 EST, Route to Pharmacy Electronically, [facility] #[id number], Partial fill upon patient request if the prescription is for a schedule II... Start Date: 05/03/20 Status: OrderedVitamin B12 1000 mcg oral tablet 1 tablet = 1,000 mcg, By Mouth, Daily, # 30 tablet, 11 Refills, Maintenance, 05/03/20 10:47:00 EST, Tablet, [facility] #[id number], 183, cm, 05/03/20 10:28:00 EST, Height, 77.5, kg, 11/08/19 18:47:00 EDT, Dry Weight Start Date: 05/03/20 Status: Ordered Problem List Condition Effective Dates Status Health Status Informant Alcoholic liver failure(Confirmed) Active Allergic rhinitis(Confirmed) Active Ascites(Confirmed) Active Asthma(Confirmed) Active Borderline blood pressure(Confirmed) Active B12 deficiency(Confirmed) Active DVT, lower extremity(Confirmed) Active Diverticulosis(Confirmed)1 Active Erectile dysfunction(Confirmed) Active Esophageal varices determined by Active endoscopy(Confirmed)2 Esophagitis(Confirmed) Active Folic acid deficiency(Confirmed) Active Left foot drop(Confirmed) Active Gastroesophageal reflux disease with Active hiatal hernia(Confirmed)3 Prothrombin mutation(Confirmed) Active Acute gout(Confirmed) Active Heavy alcohol use(Confirmed) Active Hepatic encephalopathy(Confirmed) Active History of colonoscopy(Confirmed)4 Active Hypertension(Confirmed) Active Low serum magnesium level(Confirmed) Active Right groin pain(Confirmed) Active Action tremor(Confirmed) Active Left knee pain(Confirmed) Active Portal hypertensive Active gastropathy(Confirmed)5 Positional vertigo(Confirmed) 02/15/11 Active Acute pulmonary embolism(Confirmed) Active Polyp of rectum(Confirmed)6 Active Syncope(Confirmed) Active 1colo [id number] 2001 negative [id number]; repeat [id number] 2017 Diagnosis Diagnosis Type Effective Dates Health Status Clinical In formant Service Ascites Discharge 06/08/20 Diagnosis Alcoholic liver Discharge 06/08/20 failure Diagnosis Vital Signs Most recent to oldest [Reference Range]: 1 Height 183 cm (06/08/20 2:15 PM) Social History Social History Type Response Smoking Status Never smoker entered on: 09/28/15 Sex Male Medical Equipment Implanted Date:07/15/19 Target Site:Groin Right Description Quantity MRI Company Model PATCH HERNIA PROLENE MEDIUM - ETHC 1 [employer] n/j&j Wound Closure Unknown (ETPHSM6) FORTINO: No Information Assigning Authority: FDA
--- OUTSIDE RECORDS SUMMARY | 2022-06-20 15:17 | XMS_ITS | Continuity of Care Document ---
:1965 Author Organization [facility] Address [address] [place] [address]- Care Team Providers Name Role Phone Veronica DENIS, Fernando Kwko Primary Care Physician Encounter [facility] [place] Date(s): 06/07/20 - 07/07/20 [facility] [address] [place] [phone]- Allergies, Adverse Reactions, Alerts Substance Reaction Severity [...] 05/03/20 10:47:00 EST, Route to Pharmacy Electronically, [facility] #[id number], 183, cm, 05/03/20 10:28:00EST, Height, 77.5, kg, 11/08/19 18:47:00 EDT, Dry... Start Date: 05/03/20 Stop Date: 04/28/21 Status: Orderedlactulose 10 gm/15 ml oral syrup 30 mL = 20 Gm, By Mouth, 3 times a day, # 480 mL, 11 Refills, Maintenance, 05/03/20 11:06:00 EST, Syrup, [facility] #[id number], Partial fill upon patient request if the prescription is for a schedule II opioid drug., 30 mL By Mouth 3 times a day... Start Date: 05/03/20 Status: OrderedLasix 40 mg oral tablet 80 mg, 2, tablet, By Mouth, Daily, # 30 tablet, Refills 11, Tot. Refills 11, Maintenance, 05/03/20 10:48:00 EST, Route to Pharmacy Electronically, [facility] #[id number], Partial fill upon patientrequest if the prescription is for a schedule II... Start Date: 05/03/20 Status: OrderedLexapro 10 mg oral tablet 1 tablet = 10 mg, By Mouth, Daily, # 30 tablet, 11 Refills, Maintenance, 06/24/20 11:21:00 EST, Tablet, [facility] #[id number], Partial fill upon patient request if the prescription is for a schedule II opioid drug., 183, cm, 06/24/20 11:05:00 ES... Start Date: 06/24/20 Stop Date: 06/19/21 Status: Orderedmagnesium oxide 400 mg oral tablet 1 tablet = 400 mg, By Mouth, Daily, for 30 days, # 30 tablet, 11 Refills, Acute 04/28/21 10:49:00 EST, 05/03/20 10:49:00 EST, Tablet, [facility] #[id number], Partial fill upon patient request if the [...] EDT, Dry Weight Start Date: 05/03/20 Status: Orderedphysical therapy physical therapy, See Instructions, # 1 each, Refills 0, Tot. Refills 0, Maintenance, evaluate and treat for physical deconditioning/muscle weakness, 06/24/20 11:33:00 EST, Supply Start Date: 06/24/20 Status: OrderedProAir HFA 90 mcg/inh inhalation aerosol with adapter 2, puffs, Inhalation, 4 times a day, for 30 days, # 1 each, Refills 11, Tot. Refills 11, Hard Stop 08/14/20 8:46:00 EDT, 08/20/19 8:46:00 EDT, Route to Pharmacy Electronically, [id number], [facility] #[id number], 183, cm... Start Date: 08/20/19 Stop Date: 08/14/20 Status: Orderedspironolactone 100 mg oral tablet 200 mg, 2, tablet, By Mouth, Daily, # 30 tablet, Refills 11, Tot. Refills 11, Maintenance, 05/03/20 10:48:00 EST, Route to Pharmacy Electronically, [facility] #[id number], Partial fill upon patient request if the prescription is for a schedule II... Start Date: 05/03/20 Status: OrderedVitamin B12 1000 mcg oral tablet 1 tablet = 1,000 mcg, By Mouth, Daily, # 30 tablet, 11 Refills, Maintenance, 05/03/20 10:47:00 EST, Tablet, [facility] #[id number], 183, cm, 05/03/20 10:28:00 EST, Height, 77.5, [...] Polyp of rectum(Confirmed)6 Active Syncope(Confirmed) Active 1colo 31344jsdg 24437pcb 2001 negative [id number]; repeat [id number] 2017 Social History Social History Type Response Smoking Status Never smoker entered on: 09/28/15 Sex Male Medical Equipment Implanted Date:07/15/19 Target Site:Groin Right Description Quantity MRI Company Model PATCH HERNIA PROLENE MEDIUM - ETHC 1 [employer] n/j&j Wound Closure Unknown (ETPHSM6) FORTINO: No Information Assigning Authority: FDA
--- OUTSIDE RECORDS SUMMARY | 2022-06-20 15:17 | XMS_ITS | Continuity of Care Document ---
:1965 Author Organization [facility] Address [address] [place] [address]- Care Team Providers Name Role Phone Fernando Martin MD Primary Care Physician Encounter [facility] Date(s): 03/19/22 - 04/18/22 [facility] [address] [place] [phone]- Allergies, Adverse Reactions, Alerts No Known Allergies Immunizations Given and Recorded Vaccine Date Status Refusal Reason influenza virus vaccine, inactivated 04/03/22 Given influenza virus vaccine, inactivated 04/25/21 Given influenza virus vaccine, inactivated 04/21/20 Given influenza virus vaccine, inactivated 03/30/19 Given influenza virus vaccine, inactivated 02/17/18 Given influenza virus vaccine, inactivated 07/04/17 Given influenza virus vaccine, inactivated 03/17/13 Given SARS-CoV-2 (COVID-19) mRNA BNT-162b2 vac 04/25/21 Given SARS-CoV-2 (COVID-19) mRNA BNT-162b2 vac 08/20/20 Given SARS-CoV-2 (COVID-19) mRNA BNT-162b2 vac 07/30/20 Given hepatitis B adult vaccine 04/25/21 Given hepatitis B adult vaccine 05/19/20 Given hepatitis B adult vaccine 04/21/20 Given Hepatitis A Adult Vaccine 04/25/21 Given Hepatitis A Adult Vaccine 04/21/20 Given pneumococcal 23-valent vaccine 01/14/18 Given tetanus/diphtheria/pertussis, acel(Tdap) 10/03/16 Given Tetanus Toxoid Vaccine (oldterm) 08/25/06 Given Pneumococcal Vaccine (oldterm) 10/02/05 Given Medications atorvastatin 10 mg oral tablet 1 tablet, By Mouth, Daily, # 30 tablet, 5 Refills, Maintenance, 01/29/22 11:05:00 EDT, [facility] #[id number], 183, cm, 01/17/22 9:17:00 EDT, Height Start Date: 01/29/22 Status: Orderedescitalopram 20 mg oral tablet 1 tablet = 20 mg, By Mouth, Daily, # 30 tablet, 11 Refills, Maintenance, 01/17/22 9:39:00 EDT, Tablet, [facility] #[id number], Partial fill upon patient request if the prescription is for a schedule II opioid drug., 183, cm, 01/17/22 9:17:00 EDT,... Start Date: 01/17/22 Stop Date: 01/12/23 Status: Orderedfolic acid 1 mg oral tablet 1 mg, 1, tablet, By Mouth, Daily, # 30 tablet, Refills 11, Tot. Refills 11, Maintenance, 04/28/21 10:47:00 EST, Route to Pharmacy Electronically, [facility] #[id number], 183, cm, 04/25/21 15:05:00EST, Height, 77.5, kg, 11/08/19 18:47:00 EDT, Dry... Start Date: 04/28/21 Stop Date: 04/23/22 Status: OrderedK-Tab 20 mEq oral tablet, extended release 1 tablet = 20 mEq, By Mouth, Daily, # 30 tablet, 11 Refills, Maintenance, 04/03/22 11:09:00 EST, [facility] #[id number], Partial fill upon patient request if the prescription is for a schedule II opioid drug., 183, cm, 04/03/22 10:51:00 EST, Height Start Date: 04/03/22 Status: Orderedlactulose 20 gm oral powder for reconstitution 1 pack/packet, By Mouth, 2 times a day, # 20 Gm, 0 Refills, Maintenance, 04/03/22 11:14:00 EST, REC Powder, Partial fill upon patient request if the prescription is for a schedule II opioid drug. Start Date: 04/03/22 Status: OrderedLasix 40 mg oral tablet 40 mg, 1, tablet, By Mouth, Daily, # 30 tablet, Refills 11, Tot. Refills 11, Maintenance, 04/25/21 15:06:00 EST, Route to Pharmacy Electronically, [facility] #[id number], Partial fill upon patientrequest if the prescription is for a schedule II... Start Date: 04/25/21 Status: OrderedLevoxyl 0.025 mg oral tablet 1 tablet = 25 mcg, By Mouth, Daily, # 30 tablet, 11 Refills, Maintenance, 01/17/22 9:40:00 EDT, Tablet, [facility] #[id number], Partial fill upon patient request if the prescription is for a schedule II opioid drug., 183, cm, 01/17/22 9:17:00 EDT... Start Date: 01/17/22 Status: Orderedmagnesium oxide 400 mg oral tablet 1 tablet = 400 mg, By Mouth, Daily, for 30 days, # 30 tablet, 11 Refills, Acute 04/23/22 10:49:00 EST, 04/28/21 10:49:00 EST, Tablet, [facility] #[id number], Partial fill upon patient request if the prescription is for a schedule II opioid drug.,... Start Date: 04/28/21 Stop Date: 04/23/22 Status: Orderedmidodrine 5 mg oral tablet 5 mg, 1, tablet, By Mouth, 2 times a day, # 180 tablet, Refills 0, Maintenance, 04/03/22 11:13:00 EST, Partial fill upon patient request if the prescription is for a schedule II opioid drug. Start Date: 04/03/22 Status: OrderedMultivitamin Daily, 0 Refills, Maintenance, 05/03/20 10:49:00 EST, Partial fill upon patient request if the prescription is for a schedule II opioid drug. Start Date: 05/03/20 Status: Orderedpantoprazole 40 mg oral delayed release tablet 1 tablet = 40 mg, By Mouth, Daily, # 30 tablet, 11 Refills, Maintenance, 04/25/21 15:06:00 EST, EC Tablet, 183, cm, 04/25/21 15:05:00 EST, Height, 77.5, kg, 11/08/19 18:47:00 EDT, Dry Weight Start Date: 04/25/21 Status: OrderedprednisoLONE (as sodium phosphate) 20 mg/5 mL oral liquid 20 mL = 80 mg, By Mouth, Every other day, # 90 mL, 0 Refills, Maintenance, 04/03/22 11:12:00 EST, Liquid, Partial fill upon patient request if the prescription is for a schedule II opioid drug. Start Date: 04/03/22 Status: OrderedProAir HFA 90 mcg/inh inhalation aerosol with adapter 2, puffs, Inhalation, 4 times a day, # 8.5 Gm, Refills 11, Tot. Refills 11, 01/17/22 9:33:00 EDT, Route to Pharmacy Electronically, [id number], [facility] #[id number], 183, cm, 01/17/22 9:17:00 EDT, Height Start Date: 01/17/22 Status: OrderedVentolin HFA 108 mcg/inh inhalation aerosol with adapter 2 puffs, Inhalation, Every 4 hours, # 8.5 Gm, 11 Refills, Maintenance, 03/30/22 12:03:00 EST, [facility] #[id number], Partial fill upon patient request if the prescription is for a schedule II opioid drug., 183, cm, 01/17/22 9:17:00 EDT, Height Start Date: 03/30/22 Status: Orderedvitamin A 8000 u oral capsule 1 capsule = 8,000 units, By Mouth, Daily, # 100 capsule, 11 Refills, Maintenance, 01/03/22 13:40:00 EDT, [facility] #[id number], Partial fill upon patient request if the prescription is for a schedule II opioid drug., 183, cm, 11/02/21 10:11:00 E... Start Date: 01/03/22 Status: OrderedVitamin B12 1000 mcg oral tablet 1 tablet = 1,000 mcg, By Mouth, Daily, # 30 tablet, 11 Refills, Maintenance, 04/25/21 15:06:00 EST, Tablet, [facility] #[id number], 183, cm, 04/25/21 15:05:00 EST, Height, 77.5, kg, 11/08/19 18:47:00 EDT, Dry Weight Start Date: 04/25/21 Status: OrderedXifaxan 550 mg oral tablet 1 tablet = 550 mg, By Mouth, 2 times a day, # 60 tablet, 0 Refills, Maintenance, 04/03/22 11:13:00 EST, Tablet, Partial fill upon patient request if the prescription is for a schedule II opioid drug. Start Date: 04/03/22 Status: Orderedzinc sulfate 220 mg oral capsule 220 mg, 1, capsule, By Mouth, Daily, # 100 capsule, Refills 11, Tot. Refills 11, Maintenance, 04/03/22 11:15:00 EST, Route to Pharmacy Electronically, [facility] #[id number], Partial fill upon patient request if the prescription is for a schedule... Start Date: 04/03/22 Status: Ordered Problem List Condition Confirmation Course Effective Dates Status Health I nformant Status Alcoholic liver Confirmed Active failure Allergic rhinitis Confirmed Active Ascites Confirmed Active Asthma Confirmed Active B12 deficiency Confirmed Active DVT, lower extremity Confirmed Active Diverticulosis1 Confirmed Active Erectile dysfunction Confirmed Active Esophageal varices Confirmed Active determined by endoscopy2 Esophagitis Confirmed Active Folic acid deficiency Confirmed Active Left foot drop Confirmed Active Gastroesophageal Confirmed Active reflux disease with hiatal hernia3 Prothrombin mutation Confirmed Active Acute gout Confirmed Active Heavy alcohol use Confirmed Active Hepatic encephalopathy Confirmed Active History of Confirmed Active colonoscopy4 Hyperlipidemia Confirmed Active Hypertension Confirmed Active Hypertensive Confirmed Active retinopathy Low serum magnesium Confirmed Active level Hypothyroidism Confirmed Active Right groin pain Confirmed Active Action tremor Confirmed Active Left knee pain Confirmed Active Portal hypertensive Confirmed Active gastropathy5 Acute pulmonary Confirmed Active embolism Polyp of rectum6 Confirmed Active Depression, major, Confirmed Active recurrent, moderate Retinitis pigmentosa Confirmed Active Syncope Confirmed Active Vertigo Confirmed 02/15/11 Active 1colo 06947jsbk 50940jqf 2001 negative [id number]; repeat 75586dwnh [id number] 2018 Social History Social History Type Response Smoking Status Never smoker entered on: 09/28/15 Sex Male Implantable Device List Procedure Provider Procedure Date Device Type Site Repair Hernia Inguinal Cyndi Resendez DO 07/15/19 Unknown Groin Right Open Device Serial Lot or Manufacturing Expiration Distinct MRI Implan table Assigning Identifier Number Batch Date Date Identification Safety Status Authority Number Code Unknown Unknown [id number] Unknown 09/16/22 Unknown Unknown Active Unknown 2 Patient Care team information Care Team PersonnelName: Fernando Martin MD Position: [facility] Primary Care Physician Member Role: PCP Address: Address: [address] [place] [id number] Name: Leoncio Bowers RN Position: [facility] RN Member Role: Primary Care Nurse Care Team Related PersonsName: MINDY MEIER Address: home [address] [place] [address] Name: LEONCIO CHI Address: home [facility]
--- OUTSIDE RECORDS SUMMARY | 2022-06-20 15:17 | XMS_ITS | Continuity of Care Document ---
:1965 Author Organization [facility] Address [address] [place] [address]- Care Team Providers Name Role Phone Veronica DENIS, Fernando Kwok Primary Care Physician [place] [facility] [place] 09[place]25/20 [facility] [address] [place] [address]- Attending Physician: Not on Staff, Attending MD Allergies, Adverse Reactions, Alerts Substance Reaction Severity Status NKA Active Immunizations Given and Recorded Vaccine Date Status Refusal Reason SARS-CoV-2 (COVID-19) mRNA BNT-162b2 vac 08/20/20 Given SARS-CoV-2 (COVID-19) mRNA BNT-162b2 vac 07/30/20 Given hepatitis B adult vaccine 05/19/20 Given [...] 05/03/20 10:47:00 EST, Route to Pharmacy Electronically, [facility] #[id number], 183, cm, 05/03/20 10:28:00EST, Height, 77.5, kg, 11/08/19 18:47:00 EDT, Dry... Start Date: 05/03/20 Stop Date: 04/28/21 Status: Orderedlactulose 10 gm/15 ml oral syrup 30 mL = 20 Gm, By Mouth, 3 times a day, # 480 mL, 11 Refills, Maintenance, 05/03/20 11:06:00 EST, Syrup, [facility] #[id number], Partial fill upon patient request if the prescription is for a schedule II opioid drug., 30 mL By Mouth 3 times a day... Start Date: 05/03/20 Status: OrderedLasix 40 mg oral tablet 40 mg, 1, tablet, By Mouth, Daily, # 30 tablet, Refills 11, Tot. Refills 11, Maintenance, 05/03/20 10:48:00 EST, Route to Pharmacy Electronically, [facility] #[id number], Partial fill upon patientrequest if the prescription is for a schedule II... Start Date: 05/03/20 Status: OrderedLexapro 10 mg oral tablet 1 tablet = 10 mg, By Mouth, Daily, # 30 tablet, 11 Refills, Maintenance, 06/24/20 11:21:00 EST, Tablet, [facility] #[id number], Partial fill upon patient request if the prescription is for a schedule II opioid drug., 183, cm, 06/24/20 11:05:00 ES... Start Date: 06/24/20 Stop Date: 06/19/21 Status: Orderedmagnesium oxide 400 mg oral tablet 1 tablet = 400 mg, By Mouth, Daily, for 30 days, # 30 tablet, 11 Refills, Acute 04/28/21 10:49:00 EST, 05/03/20 10:49:00 EST, Tablet, [facility] #[id number], Partial fill upon patient request if the [...] 11:33:00 EST, Supply Start Date: 06/24/20 Status: Orderedspironolactone 100 mg oral tablet 100 mg, 1, tablet, By Mouth, Daily, # 30 tablet, Refills 11, Tot. Refills 11, Maintenance, 05/03/20 10:48:00 EST, Route to Pharmacy Electronically, [facility] #[id number], Partial fill upon patient request if the prescription is for a schedule II... Start Date: 05/03/20 Status: OrderedVitamin B12 1000 mcg oral tablet 1 tablet = 1,000 mcg, By Mouth, Daily, # 30 tablet, 11 Refills, Maintenance, 05/03/20 10:47:00 EST, Tablet, [facility] #[id number], 183, cm, 05/03/20 10:28:00 EST, Height, 77.5, [...] Polyp of rectum(Confirmed)6 Active Syncope(Confirmed) Active 1colo 09229jckc 73536uhd 2001 negative [id number]; repeat 78031ezui [id number] 2017 Social History Social History Type Response Smoking Status Never smoker entered on: 09/28/15 Sex Male Medical Equipment Implanted Date:07/15/19 Target Site:Groin Right Description Quantity MRI Company Model PATCH HERNIA PROLENE MEDIUM - ETH[employer] 1 [employer] n/j&j Wound Closure Unknown (ETPHSM6) FORTINO: No Information Assigning Authority: FDA
--- OUTSIDE RECORDS SUMMARY | 2022-06-20 15:17 | XMS_ITS | Continuity of Care Document ---
:1965 Author Organization [facility] Adult Address [address] [place] [address]- Care Team Providers Name Role Phone Veronica DENIS, Fernando Kwok Primary Care Physician Encounter [facility] [place] Date(s): 06/27/21 - 07/27/21 [facility] [address] [place] [address]- Allergies, Adverse Reactions, Alerts No Known Allergies Immunizations Given and Recorded Vaccine Date Status Refusal Reason SARS-CoV-2 (COVID-19) mRNA BNT-162b2 vac 04/25/21 Given SARS-CoV-2 (COVID-19) mRNA BNT-162b2 vac 08/20/20 Given SARS-CoV-2 (COVID-19) mRNA BNT-162b2 vac 07/30/20 Given influenza virus vaccine, inactivated 04/25/21 Given influenza virus vaccine, inactivated 04/21/20 Given influenza virus vaccine, inactivated 03/30/19 Given influenza virus vaccine, inactivated 02/17/18 Given influenza virus vaccine, inactivated 07/04/17 Given influenza virus vaccine, inactivated 03/17/13 Given hepatitis B adult vaccine 04/25/21 Given hepatitis B adult vaccine 05/19/20 Given hepatitis B adult vaccine 04/21/20 Given Hepatitis A Adult Vaccine 04/25/21 Given Hepatitis A Adult Vaccine 04/21/20 Given pneumococcal 23-valent vaccine 01/14/18 Given tetanus/diphtheria/pertussis, acel(Tdap) 10/03/16 Given Tetanus Toxoid Vaccine (oldterm) 08/25/06 Given Pneumococcal Vaccine (oldterm) 10/02/05 Given Medications atorvastatin 10 mg oral tablet 1 tablet = 10 mg, By Mouth, Daily, # 30 tablet, 6 Refills, Maintenance, 06/29/21 8:02:00 EST, [facility] #[id number], Partial fill upon patient request if the prescription is for a schedule II opioid drug., 183, cm, 06/29/21 7:54:00 EST, Height,... Start Date: 06/29/21 Status: Orderedfolic acid 1 mg oral tablet 1 mg, 1, tablet, By Mouth, Daily, # 30 tablet, Refills 11, Tot. Refills 11, Maintenance, 04/28/21 10:47:00 EST, Route to Pharmacy Electronically, [facility] #[id number], 183, cm, 04/25/21 15:05:00EST, Height, 77.5, kg, 11/08/19 18:47:00 EDT, Dry... Start Date: 04/28/21 Stop Date: 04/23/22 Status: Orderedlactulose 10 gm/15 ml oral syrup 30 mL = 20 Gm, By Mouth, 3 times a day, # 480 mL, 11 Refills, Maintenance, 04/25/21 15:06:00 EST, Syrup, [facility] #[id number], Partial fill upon patient request if the prescription is for a schedule II opioid drug., 30 mL By Mouth 3 times a day... Start Date: 04/25/21 Status: OrderedLasix 40 mg oral tablet 40 mg, 1, tablet, By Mouth, Daily, # 30 tablet, Refills 11, Tot. Refills 11, Maintenance, 04/25/21 15:06:00 EST, Route to Pharmacy Electronically, [facility] #[id number], Partial fill upon patientrequest if the prescription is for a schedule II... Start Date: 04/25/21 Status: OrderedLexapro 10 mg oral tablet 1 tablet = 10 mg, By Mouth, Daily, # 30 tablet, 11 Refills, Maintenance, 06/19/21 11:21:00 EST, Tablet, [facility] #[id number], Partial fill upon patient request if the prescription is for a schedule II opioid drug., 183, cm, 04/25/21 15:05:00 ES... Start Date: 06/19/21 Stop Date: 06/14/22 Status: Orderedmagnesium oxide 400 mg oral tablet 1 tablet = 400 mg, By Mouth, Daily, for 30 days, # 30 tablet, 11 Refills, Acute 04/23/22 10:49:00 EST, 04/28/21 10:49:00 EST, Tablet, [facility] #[id number], Partial fill upon patient request if the prescription is for a schedule II opioid drug.,... Start Date: 04/28/21 Stop Date: 04/23/22 Status: OrderedMultivitamin Daily, 0 Refills, Maintenance, 05/03/20 [...] EDT, Dry Weight Start Date: 04/25/21 Status: OrderedProAir HFA 90 mcg/inh inhalation aerosol with adapter 2, puffs, Inhalation, 4 times a day, # 8.5 Gm, Refills 5, Route to Pharmacy Electronically, [id number], [facility] #[id number], 183, cm, 05/01/21 6:58:00 EST, Height, 77.5, kg, 11/08/19 18:47:00 EDT, Dry Weight Start Date: 06/16/21 Status: Orderedspironolactone 100 mg oral tablet 100 mg, 1, tablet, By Mouth, Daily, # 30 tablet, Refills 11, Tot. Refills 11, Maintenance, 04/25/21 15:06:00 EST, Route to Pharmacy Electronically, [facility] #[id number], Partial fill upon patient request if the prescription is for a schedule II... Start Date: 04/25/21 Status: OrderedVitamin B12 1000 mcg oral tablet 1 tablet = 1,000 mcg, By Mouth, Daily, # 30 tablet, 11 Refills, Maintenance, 04/25/21 15:06:00 EST, Tablet, [facility] #[id number], 183, cm, 04/25/21 15:05:00 EST, Height, 77.5, kg, 11/08/19 18:47:00 EDT, Dry Weight Start Date: 04/25/21 Status: Ordered Problem List Condition Effective Dates [...] Hepatic encephalopathy(Confirmed) Active History of colonoscopy(Confirmed)4 Active Hyperlipidemia(Confirmed) Active Hypertension(Confirmed) Active Low serum magnesium level(Confirmed) Active Right groin pain(Confirmed) Active Action tremor(Confirmed) Active Left knee pain(Confirmed) Active Portal hypertensive Active gastropathy(Confirmed)5 Acute pulmonary embolism(Confirmed) Active Polyp of rectum(Confirmed)6 Active Syncope(Confirmed) Active Vertigo(Confirmed) 02/15/11 Active 1colo 39226dqos 36088rth 2001 negative [id number]; repeat 55122zzgs [id number] 2018 Social History Social History Type Response Smoking Status Never smoker entered on: 09/28/15 Sex Male Medical Equipment Implanted Date:07/15/19 Target Site:Groin Right Description Quantity MRI Company Model PATCH HERNIA PROLENE MEDIUM - ETHC 1 [employer]ico n/j&j Wound Closure Unknown (ETPHSM6) FORTINO: No Information Assigning Authority: FDA
--- OUTSIDE RECORDS SUMMARY | 2022-06-20 15:17 | XMS_ITS | Continuity of Care Document ---
:1965 Author Organization [facility] Address [address] [place] [address]- Care Team Providers Name Role Phone Veronica DENIS, Fernando Kwok Primary Care Physician Encounter [facility] [place] [facility] Date(s): 05/02/20 - 06/01/20 [facility] [address] [place] [phone]- Allergies, Adverse Reactions, Alerts Substance Reaction Severity [...] 05/03/20 10:47:00 EST, Route to Pharmacy Electronically, [facility] #[id number], 183, cm, 05/03/20 10:28:00EST, Height, 77.5, kg, 11/08/19 18:47:00 EDT, Dry... Start Date: 05/03/20 Stop Date: 04/28/21 Status: Orderedlactulose 10 gm/15 ml oral syrup 30 mL = 20 Gm, By Mouth, 3 times a day, # 480 mL, 11 Refills, Maintenance, 05/03/20 11:06:00 EST, Syrup, [facility] #[id number], Partial fill upon patient request if the prescription is for a schedule II opioid drug., 30 mL By Mouth 3 times a day... Start Date: 05/03/20 Status: OrderedLasix 40 mg oral tablet 80 mg, 2, tablet, By Mouth, Daily, # 30 tablet, Refills 11, Tot. Refills 11, Maintenance, 05/03/20 10:48:00 EST, Route to Pharmacy Electronically, [facility] #[id number], Partial fill upon patientrequest if the prescription is for a schedule II... Start Date: 05/03/20 Status: Orderedmagnesium oxide 400 mg oral tablet 1 tablet = 400 mg, By Mouth, Daily, for 30 days, # 30 tablet, 11 Refills, Acute 04/28/21 10:49:00 EST, 05/03/20 10:49:00 EST, Tablet, [facility] #[id number], Partial fill upon patient request if the [...] 08/20/19 8:46:00 EDT, Route to Pharmacy Electronically, [id number], [facility] #[id number], 183, cm... Start Date: 08/20/19 Stop Date: 08/14/20 Status: Orderedsertraline 100 mg oral tablet 1 tablet = 100 mg, By Mouth, Daily, # 30 tablet, 11 Refills, Maintenance, 08/20/19 8:45:00 EDT, Tablet, [facility] #[id number], 183, cm, 07/24/19 10:31:00 EST, Height, 78.5, kg, 07/15/19 6:56:00 EST, Dry Weight Start Date: 08/20/19 Status: Orderedspironolactone 100 mg oral tablet 200 mg, 2, tablet, By Mouth, Daily, # 30 tablet, Refills 11, Tot. Refills 11, Maintenance, 05/03/20 10:48:00 EST, Route to Pharmacy Electronically, [facility] #[id number], Partial fill upon patient request if the prescription is for a schedule II... Start Date: 05/03/20 Status: OrderedVitamin B12 1000 mcg oral tablet 1 tablet = 1,000 mcg, By Mouth, Daily, # 30 tablet, 11 Refills, Maintenance, 05/03/20 10:47:00 EST, Tablet, [facility] #[id number], 183, cm, 05/03/20 10:28:00 EST, Height, 77.5, kg, 11/08/19 18:47:00 EDT, Dry Weight Start Date: 05/03/20 Status: Ordered Problem List Condition Effective Dates Status Health Status Informant Alcoholic liver failure(Confirmed) Active Allergic rhinitis(Confirmed) Active Ascites(Confirmed) Active Asthma(Confirmed) Active Borderline blood pressure(Confirmed) Active B12 deficiency(Confirmed) Active DVT, lower extremity(Confirmed) Active Diverticulosis(Confirmed)1 Active Erectile dysfunction(Confirmed) Active Esophagitis(Confirmed) Active Folic acid deficiency(Confirmed) Active Left foot drop(Confirmed) Active Gastroesophageal reflux disease with Active hiatal hernia(Confirmed)2 Prothrombin mutation(Confirmed) Active Acute gout(Confirmed) Active Heavy alcohol use(Confirmed) Active Hepatic encephalopathy(Confirmed) Active History of colonoscopy(Confirmed)3 Active Hypertension(Confirmed) Active Low serum magnesium level(Confirmed) Active Right groin pain(Confirmed) Active Left knee pain(Confirmed) Active Positional vertigo(Confirmed) 02/15/11 Active Acute pulmonary embolism(Confirmed) Active Polyp of rectum(Confirmed)4 Active Syncope(Confirmed) Active 1colo 97473myz 2000 negative [id number]; repeat [id number] 2017 Social History Social History Type Response Smoking Status Never smoker entered on: 09/28/15 Sex Male Medical Equipment Implanted Date:07/15/19 Target Site:Groin Right Description Quantity MRI Company Model PATCH HERNIA PROLENE MEDIUM - ETHC 1 [employer] n/j&j Wound Closure Unknown (ETPHSM6) FORTINO: No Information Assigning Authority: FDA
--- OUTSIDE RECORDS SUMMARY | 2022-06-20 15:17 | XMS_ITS | Continuity of Care Document ---
:1965 Author Organization [facility] Address [address] [place] [address]- Care Team Providers Name Role Phone Fernando Martin MD Primary Care Physician Encounter [facility] Date(s): 11/14/20 - 12/14/20 [facility] [address] [place] [phone]- Allergies, Adverse Reactions, Alerts Substance Reaction Severity [...] 05/03/20 10:47:00 EST, Route to Pharmacy Electronically, [facility] #[id number], 183, cm, 05/03/20 10:28:00EST, Height, 77.5, kg, 11/08/19 18:47:00 EDT, Dry... Start Date: 05/03/20 Stop Date: 04/28/21 Status: Orderedlactulose 10 gm/15 ml oral syrup 30 mL = 20 Gm, By Mouth, 3 times a day, # 480 mL, 11 Refills, Maintenance, 05/03/20 11:06:00 EST, Syrup, [facility] #[id number], Partial fill upon patient request if the prescription is for a schedule II opioid drug., 30 mL By Mouth 3 times a day... Start Date: 05/03/20 Status: OrderedLasix 40 mg oral tablet 40 mg, 1, tablet, By Mouth, Daily, # 30 tablet, Refills 11, Tot. Refills 11, Maintenance, 05/03/20 10:48:00 EST, Route to Pharmacy Electronically, [facility] #[id number], Partial fill upon patientrequest if the prescription is for a schedule II... Start Date: 05/03/20 Status: OrderedLexapro 10 mg oral tablet 1 tablet = 10 mg, By Mouth, Daily, # 30 tablet, 11 Refills, Maintenance, 06/24/20 11:21:00 EST, Tablet, [facility] #[id number], Partial fill upon patient request if the prescription is for a schedule II opioid drug., 183, cm, 06/24/20 11:05:00 ES... Start Date: 06/24/20 Stop Date: 06/19/21 Status: Orderedmagnesium oxide 400 mg oral tablet 1 tablet = 400 mg, By Mouth, Daily, for 30 days, # 30 tablet, 11 Refills, Acute 04/28/21 10:49:00 EST, 05/03/20 10:49:00 EST, Tablet, [facility] #[id number], Partial fill upon patient request if the [...] 05/03/20 10:48:00 EST, Route to Pharmacy Electronically, [facility] #[id number], Partial fill upon patient request if the prescription is for a schedule II... Start Date: 05/03/20 Status: OrderedVitamin B12 1000 mcg oral tablet 1 tablet = 1,000 mcg, By Mouth, Daily, # 30 tablet, 11 Refills, Maintenance, 05/03/20 10:47:00 EST, Tablet, [facility] #[id number], 183, cm, 05/03/20 10:28:00 EST, Height, 77.5, [...] Polyp of rectum(Confirmed)6 Active Syncope(Confirmed) Active 1colo 25444zeih 63033ynn 2000 negative [id number]; repeat 58497xfyd [id number] 2017 Social History Social History Type Response Smoking Status Never smoker entered on: 09/28/15 Sex Male Medical Equipment Implanted Date:07/15/19 Target Site:Groin Right Description Quantity MRI Company Model PATCH HERNIA PROLENE MEDIUM - ETHC 1 [employer] n/j&j Wound Closure Unknown (ETPHSM6) FORTINO: No Information Assigning Authority: FDA
--- OUTSIDE RECORDS SUMMARY | 2022-06-20 15:17 | XMS_ITS | Continuity of Care Document ---
:1965 Author Organization [facility] Adult Address [address] [place] [address]- Care Team Providers Name Role Phone Veronica DENIS, Fernando Kwok Primary Care Physician Encounter [facility] Date(s): 04/04/22 - 05/04/22 [facility] [address] [place] [address]- Allergies, Adverse Reactions, Alerts No Known Allergies [...] tablet, 5 Refills, Maintenance, 01/29/22 11:05:00 EDT, [facility] #[id number], 183, cm, 01/17/22 9:17:00 EDT, Height Start Date: 01/29/22 Status: Orderedescitalopram 20 mg oral tablet 1 tablet = 20 mg, By Mouth, Daily, # 30 tablet, 11 Refills, Maintenance, 01/17/22 9:39:00 EDT, Tablet, [facility] #[id number], Partial fill upon patient request if the prescription is for a schedule II opioid drug., 183, cm, 01/17/22 9:17:00 EDT,... Start Date: 01/17/22 Stop Date: 01/12/23 Status: Orderedfolic acid 1 mg oral tablet 1 mg, 1, tablet, By Mouth, Daily, # 30 tablet, Refills 11, Tot. Refills 11, Maintenance, 04/28/21 10:47:00 EST, Route to Pharmacy Electronically, [facility] #[id number], 183, cm, 04/25/21 15:05:00EST, Height, 77.5, kg, 11/08/19 18:47:00 EDT, Dry... Start Date: 04/28/21 Stop Date: 04/23/22 Status: OrderedK-Tab 20 mEq oral tablet, extended release 1 tablet = 20 mEq, By Mouth, Daily, # 30 tablet, 11 Refills, Maintenance, 04/03/22 11:09:00 EST, [facility] #[id number], Partial fill upon patient request if the [...] 04/25/21 15:06:00 EST, Route to Pharmacy Electronically, [facility] #[id number], Partial fill upon patientrequest if the prescription is for a schedule II... Start Date: 04/25/21 Status: OrderedLevoxyl 0.025 mg oral tablet 1 tablet = 25 mcg, By Mouth, Daily, # 30 tablet, 11 Refills, Maintenance, 01/17/22 9:40:00 EDT, Tablet, [facility] #[id number], Partial fill upon patient request if the prescription is for a schedule II opioid drug., 183, cm, 01/17/22 9:17:00 EDT... Start Date: 01/17/22 Status: Orderedmidodrine 5 mg oral tablet 5 [...] 01/17/22 9:33:00 EDT, Route to Pharmacy Electronically, [id number], [facility] #[id number], 183, cm, 01/17/22 9:17:00 EDT, Height Start Date: 01/17/22 Status: OrderedVentolin HFA 108 mcg/inh inhalation aerosol with adapter 2 puffs, Inhalation, Every 4 hours, # 8.5 Gm, 11 Refills, Maintenance, 03/30/22 12:03:00 EST, [facility] #24434, Partial fill upon patient request if the prescription is for a schedule II opioid drug., 183, cm, 01/17/22 9:17:00 EDT, Height Start Date: 03/30/22 Status: Orderedvitamin A 8000 u oral capsule 1 capsule = 8,000 units, By Mouth, Daily, # 100 capsule, 11 Refills, Maintenance, 01/03/22 13:40:00 EDT, [facility] #[id number], Partial fill upon patient request if the prescription is for a schedule II opioid drug., 183, cm, 11/02/21 10:11:00 E... Start Date: 01/03/22 Status: OrderedVitamin B12 1000 mcg oral tablet 1 tablet = 1,000 mcg, By Mouth, Daily, # 30 tablet, 11 Refills, Maintenance, 04/25/21 15:06:00 EST, Tablet, [facility] #[id number], 183, cm, 04/25/21 15:05:00 EST, Height, 77.5, [...] 04/03/22 11:15:00 EST, Route to Pharmacy Electronically, [facility] #[id number], Partial fill upon patient request if the [...] Confirmed Active Vertigo Confirmed 02/15/11 Active 1colo 51313muvs 19687ajn 2001 negative [id number]; repeat 40048rkzv [id number] 2018 Social History Social History Type Response Smoking Status Never smoker entered on: 09/28/15 Sex Male Implantable Device List Procedure Provider Procedure Date Device Type Site Repair Hernia Inguinal Mal DOCyndi 07/15/19 Unknown Groin Right Open Device Serial Lot or Manufacturing Expiration Distinct MRI Implan table Assigning Identifier Number Batch Date Date Identification Safety Status Authority Number Code Unknown Unknown [id number] Unknown 09/16/22 Unknown Unknown Active Unknown 2 Patient Care team information Care Team PersonnelName: Fernando Martin MD Position: [facility] Primary Care Physician Member Role: PCP Address: Address: [address] [place] [id number]- Name: Leoncio Bowers RN Position: [facility] RN Member Role: Primary Care Nurse Care Team Related PersonsName: MINDY MEIER Address: home [address] [place] [address] Name: LEONCIO CHI Address: home [facility]
--- OUTSIDE RECORDS SUMMARY | 2022-06-20 15:17 | XMS_ITS | Continuity of Care Document ---
:1965 Author Organization [facility] Address [address] [place] [address]- Care Team Providers Name Role Phone Fernando Martin MD Primary Care Physician Encounter [facility] Date(s): 03/05/22 - 04/04/22 [facility] [address] [place] [address]- Allergies, Adverse Reactions, Alerts No Known Allergies [...] tablet, 5 Refills, Maintenance, 01/29/22 11:05:00 EDT, [facility] #[id number], 183, cm, 01/17/22 9:17:00 EDT, Height Start Date: 01/29/22 Status: Orderedescitalopram 20 mg oral tablet 1 tablet = 20 mg, By Mouth, Daily, # 30 tablet, 11 Refills, Maintenance, 01/17/22 9:39:00 EDT, Tablet, [facility] #[id number], Partial fill upon patient request if the prescription is for a schedule II opioid drug., 183, cm, 01/17/22 9:17:00 EDT,... Start Date: 01/17/22 Stop Date: 01/12/23 Status: Orderedfolic acid 1 mg oral tablet 1 mg, 1, tablet, By Mouth, Daily, # 30 tablet, Refills 11, Tot. Refills 11, Maintenance, 04/28/21 10:47:00 EST, Route to Pharmacy Electronically, [facility] #[id number], 183, cm, 04/25/21 15:05:00EST, Height, 77.5, kg, 11/08/19 18:47:00 EDT, Dry... Start Date: 04/28/21 Stop Date: 04/23/22 Status: OrderedK-Tab 20 mEq oral tablet, extended release 1 tablet = 20 mEq, By Mouth, Daily, # 30 tablet, 11 Refills, Maintenance, 04/03/22 11:09:00 EST, [facility] #[id number], Partial fill upon patient request if the [...] 04/25/21 15:06:00 EST, Route to Pharmacy Electronically, [facility] #[id number], Partial fill upon patientrequest if the prescription is for a schedule II... Start Date: 04/25/21 Status: OrderedLevoxyl 0.025 mg oral tablet 1 tablet = 25 mcg, By Mouth, Daily, # 30 tablet, 11 Refills, Maintenance, 01/17/22 9:40:00 EDT, Tablet, [facility] #[id number], Partial fill upon patient request if the prescription is for a schedule II opioid drug., 183, cm, 01/17/22 9:17:00 EDT... Start Date: 01/17/22 Status: Orderedmagnesium oxide 400 mg oral tablet 1 tablet = 400 mg, By Mouth, Daily, for 30 days, # 30 tablet, 11 Refills, Acute 04/23/22 10:49:00 EST, 04/28/21 10:49:00 EST, Tablet, [facility] #[id number], Partial fill upon patient request if the [...] 01/17/22 9:33:00 EDT, Route to Pharmacy Electronically, [id number], [facility] #[id number], 183, cm, 01/17/22 9:17:00 EDT, Height Start Date: 01/17/22 Status: OrderedVentolin HFA 108 mcg/inh inhalation aerosol with adapter 2 puffs, Inhalation, Every 4 hours, # 8.5 Gm, 11 Refills, Maintenance, 03/30/22 12:03:00 EST, [facility] #[id number], Partial fill upon patient request if the prescription is for a schedule II opioid drug., 183, cm, 01/17/22 9:17:00 EDT, Height Start Date: 03/30/22 Status: Orderedvitamin A 8000 u oral capsule 1 capsule = 8,000 units, By Mouth, Daily, # 100 capsule, 11 Refills, Maintenance, 01/03/22 13:40:00 EDT, [facility] #[id number], Partial fill upon patient request if the prescription is for a schedule II opioid drug., 183, cm, 11/02/21 10:11:00 E... Start Date: 01/03/22 Status: OrderedVitamin B12 1000 mcg oral tablet 1 tablet = 1,000 mcg, By Mouth, Daily, # 30 tablet, 11 Refills, Maintenance, 04/25/21 15:06:00 EST, Tablet, [facility] #50021, 183, cm, 04/25/21 15:05:00 EST, Height, 77.5, [...] 04/03/22 11:15:00 EST, Route to Pharmacy Electronically, [facility] #[id number], Partial fill upon patient request if the [...] Confirmed Active Vertigo Confirmed 02/15/11 Active 1colo 12151djtv 05696adn 2001 negative [id number]; repeat 04361umot [id number] 2018 Social History Social History Type Response Smoking Status Never smoker entered on: 09/28/15 Sex Male Implantable Device List Procedure Provider Procedure Date Device Type Site Repair Hernia Inguinal Mal DOCyndi 07/15/19 Unknown Groin Right Open Device Serial Lot or Manufacturing Expiration Distinct MRI Implan table Assigning Identifier Number Batch Date Date Identification Safety Status Authority Number Code Unknown Unknown [id number] Unknown 09/16/22 Unknown Unknown Active Unknown 2 Patient Care team information Care Team PersonnelName: Fernando Martin MD Position: [facility] Primary Care Physician Member Role: PCP Address: Address: [address] [place] [id number] Name: Leoncio Bowers RN Position: [facility] RN Member Role: Primary Care Nurse Care Team Related PersonsName: MINDY MEIRE Address: home [address] [place] [address] Name: LEONCIO CHI Address: home [facility]
--- OUTSIDE RECORDS SUMMARY | 2022-06-20 15:17 | XMS_ITS | Continuity of Care Document ---
:1965 Author Organization [facility] Address [address] [place] [address]- Care Team Providers Name Role Phone Veronica DENIS, Fernando Kwok Primary Care Physician [facility]counter [facility] Date(s): 12/04/19 - 01/03/20 [facility] [address] [place] [address]- [facility] Allergies, Adverse Reactions, Alerts Substance Reaction Severity Status NKA Active Immunizations Given and Recorded Vaccine Date Status Refusal Reason influenza virus vaccine, inactivated 03/30/19 Given influenza virus vaccine, inactivated 02/17/18 Given influenza virus vaccine, inactivated 07/04/17 Given influenza virus vaccine, inactivated 03/17/13 Given pneumococcal 23-valent vaccine 01/14/18 Given tetanus/diphtheria/pertussis, acel(Tdap) 10/03/16 Given Tetanus Toxoid Vaccine (oldterm) 08/25/06 Given Pneumococcal Vaccine (oldterm) 10/02/05 Given Medications Advair Diskus 100 mcg-50 mcg inhalation powder 1, puffs, Inhalation, 2 times a day, # 60 each, Refills 11, Tot. Refills 11, Maintenance, 08/20/19 8:46:00 EDT, Route to Pharmacy Electronically, [id number], [facility] #[id number], 183, cm, 07/24/19 10:31:00 EST, Height... Start Date: 08/20/19 Stop Date: 08/14/20 Status: OrderedAFO brace left foot AFO brace left foot, See Instructions, # 1 each, Refills 0, Tot. Refills 0, Maintenance, Dx: Left foot drop Use daily, 10/28/19 9:22:00 EDT, Supply Start Date: 10/28/19 Status: Orderedfolic acid 1 mg oral tablet 1 mg, 1, tablet, By Mouth, Daily, # 90 tablet, Refills 3, Tot. Refills 3, Maintenance, 11/10/19 10:53:00 EDT, Route to Pharmacy Electronically, [facility], 183, cm, 11/10/19 9:27:00 EDT, Height, 77.5, kg, 11/08/19 18:47:00 EDT, Dry Weight Start Date: 11/10/19 Status: OrderedNasacort 0 Refills, Maintenance, 09/28/15 8:56:41 Start Date: 09/28/15 Status: Orderedpantoprazole 40 mg oral delayed release tablet 1 tablet = 40 mg, By Mouth, Daily, # 30 tablet, 11 Refills, Maintenance, 08/20/19 8:46:00 EDT, EC Tablet, 183, cm, 07/24/19 10:31:00 EST, Height, 78.5, kg, 07/15/19 6:56:00 EST, Dry Weight Start Date: 08/20/19 Status: OrderedpredniSONE 20 mg oral tablet See Instructions, 2 tablets daily for 5 days and then 1 tablet daily for 5 days, # 15 tablet, 0 Refills, Maintenance, 12/01/19 7:32:00 EDT, [facility] #[id number], 183, cm, 12/01/19 7:19:00 EDT, Height, 77.5, kg, 11/08/19 18:47:00 EDT, Dry Weight Start Date: 12/01/19 Status: OrderedProAir HFA 90 mcg/inh inhalation aerosol with adapter 2, puffs, Inhalation, 4 times a day, for 30 days, # 1 each, Refills 11, Tot. Refills 11, Hard Stop 08/14/20 8:46:00 EDT, 08/20/19 8:46:00 EDT, Route to Pharmacy Electronically, [id number], [facility] #[id number], 183, cm... Start Date: 08/20/19 Stop Date: 08/14/20 Status: Orderedpyridoxine 100 mg oral tablet 1 tablet = 100 mg, By Mouth, Daily, # 30 tablet, 0 Refills, Maintenance, 11/10/19 10:52:00 EDT, Tablet, [facility], 183, cm, 11/10/19 9:27:00 EDT, Height, 77.5, kg, 11/08/19 18:47:00 EDT,Dry Weight Start Date: 11/10/19 Status: Orderedsertraline 100 mg oral tablet 1 tablet = 100 mg, By Mouth, Daily, # 30 tablet, 11 Refills, Maintenance, 08/20/19 8:45:00 EDT, Tablet, [facility] #[id number], 183, cm, 07/24/19 10:31:00 EST, Height, 78.5, kg, 07/15/19 6:56:00 EST, Dry Weight Start Date: 08/20/19 Status: Orderedthiamine 100 mg oral tablet 100 mg, 1, tablet, By Mouth, Daily, # 30 tablet, Refills 0, Tot. Refills 0, Maintenance, 11/10/19 10:52:00 EDT, Route to Pharmacy Electronically, [facility], 183, cm, 11/10/19 9:27:00 EDT, Height, 77.5, kg, 11/08/19 18:47:00 EDT, Dry Weight Start Date: 11/10/19 Status: OrderedVitamin B12 1000 mcg oral tablet 1 tablet = 1,000 mcg, By Mouth, Daily, # 30 tablet, 11 Refills, Maintenance, 08/20/19 8:46:00 EDT, Tablet, [facility] #[id number], 183, cm, 07/24/19 10:31:00 EST, Height, 78.5, kg, 07/15/19 6:56:00 EST, Dry Weight Start Date: 08/20/19 Status: Ordered Problem List Condition Effective Dates Status Health Status Informant Allergic rhinitis(Confirmed) Active Asthma(Confirmed) Active Borderline blood pressure(Confirmed) Active B12 deficiency(Confirmed) Active DVT, lower extremity(Confirmed) Active Diverticulosis(Confirmed)1 Active Erectile dysfunction(Confirmed) Active Esophagitis(Confirmed) Active Folic acid deficiency(Confirmed) Active Left foot drop(Confirmed) Active Gastroesophageal reflux disease with Active hiatal hernia(Confirmed)2 Prothrombin mutation(Confirmed) Active Acute gout(Confirmed) Active Heavy alcohol use(Confirmed) Active History of colonoscopy(Confirmed)3 Active Hypertension(Confirmed) Active Low serum magnesium level(Confirmed) Active Right groin pain(Confirmed) Active Left knee pain(Confirmed) Active Positional vertigo(Confirmed) 02/15/11 Active Acute pulmonary embolism(Confirmed) Active Polyp of rectum(Confirmed)4 Active Syncope(Confirmed) Active 1colo [id number] 2000 negative [id number]; repeat 2017 Social History Social History Type Response Smoking Status Never smoker entered on: 09/28/15 Sex Male Medical Equipment Implanted Date:07/15/19 Target Site:Groin Right Description Quantity MRI Company Model PATCH HERNIA PROLENE MEDIUM - ETHC 1 [employer]ico n/j&j Wound Closure Unknown (ETPHSM6) FORTINO: No Information Assigning Authority: FDA
--- OUTSIDE RECORDS SUMMARY | 2022-06-20 15:17 | XMS_ITS | Continuity of Care Document ---
:1965 Author Organization [facility] Adult Address [address] [place] [address]- Care Team Providers Name Role Phone Veronica DENIS, Fernando Kwok Primary Care Physician [facility]counter [facility] Date(s): 01/17/22 - 02/16/22 [facility] [address] [place] [address]- Allergies, Adverse Reactions, Alerts No Known Allergies [...] tablet, 5 Refills, Maintenance, 01/29/22 11:05:00 EDT, [facility] #[id number], 183, cm, 01/17/22 9:17:00 EDT, Height Start Date: 01/29/22 Status: Orderedescitalopram 20 mg oral tablet 1 tablet = 20 mg, By Mouth, Daily, # 30 tablet, 11 Refills, Maintenance, 01/17/22 9:39:00 EDT, Tablet, [facility] #[id number], Partial fill upon patient request if the prescription is for a schedule II opioid drug., 183, cm, 01/17/22 9:17:00 EDT,... Start Date: 01/17/22 Stop Date: 01/12/23 Status: Orderedfolic acid 1 mg oral tablet 1 mg, 1, tablet, By Mouth, Daily, # 30 tablet, Refills 11, Tot. Refills 11, Maintenance, 04/28/21 10:47:00 EST, Route to Pharmacy Electronically, [facility] #[id number], 183, cm, 04/25/21 15:05:00EST, Height, 77.5, kg, 11/08/19 18:47:00 EDT, Dry... Start Date: 04/28/21 Stop Date: 04/23/22 Status: OrderedLasix 40 mg oral tablet 40 mg, 1, tablet, By Mouth, Daily, # 30 tablet, Refills 11, Tot. Refills 11, Maintenance, 04/25/21 15:06:00 EST, Route to Pharmacy Electronically, [facility] #[id number], Partial fill upon patientrequest if the prescription is for a schedule II... Start Date: 04/25/21 Status: OrderedLevoxyl 0.025 mg oral tablet 1 tablet = 25 mcg, By Mouth, Daily, # 30 tablet, 11 Refills, Maintenance, 01/17/22 9:40:00 EDT, Tablet, [facility] #[id number], Partial fill upon patient request if the prescription is for a schedule II opioid drug., 183, cm, 01/17/22 9:17:00 EDT... Start Date: 01/17/22 Status: Orderedmagnesium oxide 400 mg oral tablet 1 tablet = 400 mg, By Mouth, Daily, for 30 days, # 30 tablet, 11 Refills, Acute 04/23/22 10:49:00 EST, 04/28/21 10:49:00 EST, Tablet, [facility] #[id number], Partial fill upon patient request if the prescription is for a schedule II opioid drug.,... Start Date: 04/28/21 Stop Date: 04/23/22 Status: Orderedmeclizine 25 mg oral tablet 1 tablet, By Mouth, 3 times a day, PRN NEEDED FOR DIZZINESS, # 30 tablet, 0 Refills, [facility] #[id number], 183, cm, 08/22/21 10:40:00 EDT, Height, 77.5, kg, 11/08/19 18:47:00 EDT, Dry Weight Start Date: 10/24/21 Status: OrderedMultivitamin Daily, 0 Refills, Maintenance, 05/03/20 10:49:00 EST, Partial fill upon patient request if the prescription is for a schedule II opioid drug. Start Date: 05/03/20 Status: Orderednadolol 40 mg oral tablet 40 mg, 1, tablet, By Mouth, Daily, DOSAGE INCREASE, # 30 tablet, Refills 6, Tot. Refills 6, Maintenance, 08/04/21 10:46:00 EDT, Route to Pharmacy Electronically, [facility][id number], Partial fill upon patient request if the prescription is for... Start Date: 08/04/21 Status: Orderedpantoprazole 40 mg oral delayed release [...] 01/17/22 9:33:00 EDT, Route to Pharmacy Electronically, [id number], [facility] #[id number], 183, cm, 01/17/22 9:17:00 EDT, Height Start Date: 01/17/22 Status: Orderedvitamin A 8000 u oral capsule 1 capsule = 8,000 units, By Mouth, Daily, # 100 capsule, 11 Refills, Maintenance, 01/03/22 13:40:00 EDT, [facility] #[id number], Partial fill upon patient request if the prescription is for a schedule II opioid drug., 183, cm, 11/02/21 10:11:00 E... Start Date: 01/03/22 Status: OrderedVitamin B12 1000 mcg oral tablet 1 tablet = 1,000 mcg, By Mouth, Daily, # 30 tablet, 11 Refills, Maintenance, 04/25/21 15:06:00 EST, Tablet, [facility] #[id number], 183, cm, 04/25/21 15:05:00 EST, Height, 77.5, kg, 11/08/19 18:47:00 EDT, Dry Weight Start Date: 04/25/21 Status: Ordered Problem List Condition Confirmation Course [...] Confirmed Active Vertigo Confirmed 02/15/11 Active 1colo 32196pjgf 02772vkm 2000 negative [id number]; repeat 37922hinh 93204bstk 2017 Social History Social History Type Response Smoking Status Never smoker entered on: 09/28/15 Sex Male Implantable Device List Procedure Provider Procedure Date Device Type Site Repair Hernia Inguinal Cyndi Resendez DO 07/15/19 Unknown Groin Right Open Device Serial Lot or Manufacturing Expiration Distinct MRI Implan table Assigning Identifier Number Batch Date Date Identification Safety Status Authority Number Code Unknown Unknown [id number] Unknown 09/16/22 Unknown Unknown Active Unknown 2 Patient Care team information PersonnelName: Veronica DENIS, Fernando Kwok Address: Address: [address] [place] [address]
--- OUTSIDE RECORDS SUMMARY | 2022-06-20 15:17 | XMS_ITS | Continuity of Care Document ---
:1965 Author Organization [facility] Address [address] [place] [address]- Care Team Providers Name Role Phone Veronica DENIS, Feranndo Kwok Primary Care Physician [place] [facility] [place](s): 05/11/20 - 06/10/20 [facility] [address] [place] [address]- Allergies, Adverse Reactions, Alerts Substance Reaction Severity [...] 05/03/20 10:47:00 EST, Route to Pharmacy Electronically, [facility] #[id number], 183, cm, 05/03/20 10:28:00EST, Height, 77.5, kg, 11/08/19 18:47:00 EDT, Dry... Start Date: 05/03/20 Stop Date: 04/28/21 Status: Orderedlactulose 10 gm/15 ml oral syrup 30 mL = 20 Gm, By Mouth, 3 times a day, # 480 mL, 11 Refills, Maintenance, 05/03/20 11:06:00 EST, Syrup, [facility] #[id number], Partial fill upon patient request if the prescription is for a schedule II opioid drug., 30 mL By Mouth 3 times a day... Start Date: 05/03/20 Status: OrderedLasix 40 mg oral tablet 80 mg, 2, tablet, By Mouth, Daily, # 30 tablet, Refills 11, Tot. Refills 11, Maintenance, 05/03/20 10:48:00 EST, Route to Pharmacy Electronically, [facility] #[id number], Partial fill upon patientrequest if the prescription is for a schedule II... Start Date: 05/03/20 Status: Orderedmagnesium oxide 400 mg oral tablet 1 tablet = 400 mg, By Mouth, Daily, for 30 days, # 30 tablet, 11 Refills, Acute 04/28/21 10:49:00 EST, 05/03/20 10:49:00 EST, Tablet, [facility] #[id number], Partial fill upon patient request if the [...] 08/20/19 8:46:00 EDT, Route to Pharmacy Electronically, [id number], [facility] #[id number], 183, cm... Start Date: 08/20/19 Stop Date: 08/14/20 Status: Orderedsertraline 100 mg oral tablet 1.5 tablet = 150 mg, By Mouth, Daily, # 30 tablet, 11 Refills, Maintenance, 08/20/19 8:45:00 EDT, Tablet, [facility] #[id number], 183, cm, 07/24/19 10:31:00 EST, Height, 78.5, kg, 07/15/19 6:56:00EST, Dry Weight Start Date: 08/20/19 Status: Orderedspironolactone 100 mg oral tablet 200 mg, 2, tablet, By Mouth, Daily, # 30 tablet, Refills 11, Tot. Refills 11, Maintenance, 05/03/20 10:48:00 EST, Route to Pharmacy Electronically, [facility] #[id number], Partial fill upon patient request if the prescription is for a schedule II... Start Date: 05/03/20 Status: OrderedVitamin B12 1000 mcg oral tablet 1 tablet = 1,000 mcg, By Mouth, Daily, # 30 tablet, 11 Refills, Maintenance, 05/03/20 10:47:00 EST, Tablet, [facility] #[id number], 183, cm, 05/03/20 10:28:00 EST, Height, 77.5, [...] Polyp of rectum(Confirmed)6 Active Syncope(Confirmed) Active 1colo 47039yhbz 00656hsi 2001 negative [id number]; repeat 41341ippy 20064ywxh 2017 Social History Social History Type Response Smoking Status Never smoker entered on: 09/28/15 Sex Male Medical Equipment Implanted Date:07/15/19 Target Site:Groin Right Description Quantity MRI Company Model PATCH HERNIA PROLENE MEDIUM - [facility] 1 [employer] n/j&j Wound Closure Unknown (ETPHSM6) FORTINO: No Information Assigning Authority: FDA
--- OUTSIDE RECORDS SUMMARY | 2022-06-20 15:17 | XMS_ITS | Continuity of Care Document ---
:1965 Author Organization [facility] Address [address] [place] [address]- Care Team Providers Name Role Phone Veronica DENIS, Fernando Kwok Primary Care Physician [place] [facility] [place] 05/08/21 [facility] [address] [place] [address]- Encounter Diagnosis Hyperlipidemia (Discharge Diagnosis) - 05/01/21 Attending Physician: Adrián PROBATE LAWYER, Zoraida Flores Allergies, Adverse Reactions, Alerts Substance Reaction Severity [...] Given Pneumococcal Vaccine (oldterm) 10/02/05 Given Medications Albuterol (Eqv-ProAir HFA) 90 mcg/inh inhalation aerosol 2 puffs, Inhalation, 4 times a day, # 8.5 Gm, 0 Refills, 05/01/21 13:02:00 EST, [facility][id number], 25, 2 puffs Inhalation 4 times a day, 183, cm, 05/01/21 6:58:00 EST, Height, 77.5, kg, 11/08/19 18:47:00 EDT, Dry Weight Start Date: 05/01/21 Status: Orderedatorvastatin 10 mg oral tablet 1 tablet = 10 mg, By Mouth, Daily, # 30 tablet, 0 Refills, Maintenance, 05/01/21 7:15:00 EST, [facility] #[id number], Partial fill upon patient request if the prescription is for a schedule II opioid drug., 183, cm, 05/01/21 6:58:00 EST, Height,... Start Date: 05/01/21 Status: Orderedfolic acid 1 mg oral tablet 1 mg, 1, tablet, By Mouth, Daily, # 30 tablet, Refills 11, Tot. Refills 11, Maintenance, 04/28/21 10:47:00 EST, Route to Pharmacy Electronically, [facility] #[id number], 183, cm, 04/25/21 15:05:00EST, Height, 77.5, kg, 11/08/19 18:47:00 EDT, Dry... Start Date: 04/28/21 Stop Date: 04/23/22 Status: Orderedlactulose 10 gm/15 ml oral syrup 30 mL = 20 Gm, By Mouth, 3 times a day, # 480 mL, 11 Refills, Maintenance, 04/25/21 15:06:00 EST, Syrup, [facility] #[id number], Partial fill upon patient request if the prescription is for a schedule II opioid drug., 30 mL By Mouth 3 times a day... Start Date: 04/25/21 Status: OrderedLasix 40 mg oral tablet 40 mg, 1, tablet, By Mouth, Daily, # 30 tablet, Refills 11, Tot. Refills 11, Maintenance, 04/25/21 15:06:00 EST, Route to Pharmacy Electronically, [facility] #[id number], Partial fill upon patientrequest if the prescription is for a schedule II... Start Date: 04/25/21 Status: OrderedLexapro 10 mg oral tablet 1 tablet = 10 mg, By Mouth, Daily, # 30 tablet, 11 Refills, Maintenance, 06/19/21 11:21:00 EST, Tablet, [facility] #[id number], Partial fill upon patient request if the prescription is for a schedule II opioid drug., 183, cm, 04/25/21 15:05:00 ES... Start Date: 06/19/21 Stop Date: 06/14/22 Status: Orderedmagnesium oxide 400 mg oral tablet 1 tablet = 400 mg, By Mouth, Daily, for 30 days, # 30 tablet, 11 Refills, Acute 04/23/22 10:49:00 EST, 04/28/21 10:49:00 EST, Tablet, [facility] #[id number], Partial fill upon patient request if the [...] EDT, Dry Weight Start Date: 04/25/21 Status: Orderedspironolactone 100 mg oral tablet 100 mg, 1, tablet, By Mouth, Daily, # 30 tablet, Refills 11, Tot. Refills 11, Maintenance, 04/25/21 15:06:00 EST, Route to Pharmacy Electronically, [facility] #[id number], Partial fill upon patient request if the prescription is for a schedule II... Start Date: 04/25/21 Status: OrderedVitamin B12 1000 mcg oral tablet 1 tablet = 1,000 mcg, By Mouth, Daily, # 30 tablet, 11 Refills, Maintenance, 04/25/21 15:06:00 EST, Tablet, [facility] #[id number], 183, cm, 04/25/21 15:05:00 EST, Height, 77.5, [...] Polyp of rectum(Confirmed)6 Active Syncope(Confirmed) Active 1colo 16826fxgl 94781xiz 2001 negative [id number]; repeat 85477wgzb 95115ngxm 2018 Diagnosis Diagnosis Type Effective Dates Health Status Clinical In formant Service Hyperlipidemia Discharge 05/01/21 Diagnosis Vital Signs Most recent to oldest [Reference Range]: 1 Height 183 cm (05/01/21 6:58 AM) Weight 81.7 kg (05/01/21 6:58 AM) Oxygen Saturation [94-100 %] 98 % (05/01/21 6:58 AM) Pulse Rate [55-90 bpm] 79 bpm (05/01/21 6:58 AM) Body Mass Index [18.5-24.99] 24.4 (05/01/21 6:58 AM) Blood Pressure [90-138/55-84 mm Hg] 118/66 mm Hg (05/01/21 6:58 AM) Temperature [96.8-100.4 DegF] 98.1 DegF (05/01/21 6:58 AM) Blood pressure sites Arm, left (05/01/21 6:58 AM) Social History Social History Type Response Smoking Status Never smoker entered on: 09/28/15 Sex Male Medical Equipment Implanted Date:07/15/19 Target Site:Groin Right Description Quantity MRI Company Model PATCH HERNIA PROLENE MEDIUM - [facility] 1 [employer] n/j&j Wound Closure Unknown (ETPHSM6) FORTINO: No Information Assigning Authority: FDA
--- OUTSIDE RECORDS SUMMARY | 2022-06-20 15:17 | XMS_ITS | Continuity of Care Document ---
:1965 Author Organization [facility] Address [address] [place] [address]- Care Team Providers Name Role Phone Fernando Martin MD Primary Care Physician [facility]counter [facility] Date(s): 12/08/21 - 01/07/22 [facility] [address] [place] [address]- Allergies, Adverse Reactions, Alerts No Known Allergies [...] 30 tablet, 6 Refills, Maintenance, 06/29/21 8:02:00 [id number], Partial fill upon patient request if the prescription is for a schedule II opioid drug., 183, cm, 06/29/21 7:54:00 EST, Height,... Start Date: 06/29/21 Status: Orderedfolic acid 1 mg oral tablet 1 mg, 1, tablet, By Mouth, Daily, # 30 tablet, Refills 11, Tot. Refills 11, Maintenance, 04/28/21 10:47:00 EST, Route to Pharmacy Electronically, [facility] #[id number], 183, cm, 04/25/21 15:05:00EST, Height, 77.5, kg, 11/08/19 18:47:00 EDT, Dry... Start Date: 04/28/21 Stop Date: 04/23/22 Status: OrderedLasix 40 mg oral tablet 40 mg, 1, tablet, By Mouth, Daily, # 30 tablet, Refills 11, Tot. Refills 11, Maintenance, 04/25/21 15:06:00 EST, Route to Pharmacy Electronically, [facility] #[id number], Partial fill upon patientrequest if the prescription is for a schedule II... Start Date: 04/25/21 Status: OrderedLexapro 10 mg oral tablet 1 tablet = 10 mg, By Mouth, Daily, # 30 tablet, 11 Refills, Maintenance, 06/19/21 11:21:00 EST, Tablet, [facility] #[id number], Partial fill upon patient request if the prescription is for a schedule II opioid drug., 183, cm, 04/25/21 15:05:00 ES... Start Date: 06/19/21 Stop Date: 06/14/22 Status: Orderedmagnesium oxide 400 mg oral tablet 1 tablet = 400 mg, By Mouth, Daily, for 30 days, # 30 tablet, 11 Refills, Acute 04/23/22 10:49:00 EST, 04/28/21 10:49:00 EST, Tablet, [facility] #[id number], Partial fill upon patient request if the prescription is for a schedule II opioid drug.,... Start Date: 04/28/21 Stop Date: 04/23/22 Status: Orderedmeclizine 25 mg oral tablet 1 tablet, By Mouth, 3 times a day, PRN NEEDED FOR DIZZINESS, # 30 tablet, 0 Refills, [facility] #[id number], 183, cm, 08/22/21 10:40:00 EDT, Height, 77.5, [...] 08/04/21 10:46:00 EDT, Route to Pharmacy Electronically, [facility] #[id number], Partial fill upon patient request if the [...] a day, # 8.5 Gm, Refills 5, Tot. Refills 5, 08/22/21 10:48:00 EDT, Route to Pharmacy Electronically, [id number], [facility] #[id number], 183, cm, 08/22/21 10:40:00 EDT, Height, 77.5, kg, ... Start Date: 08/22/21 Status: Orderedspironolactone 100 mg oral tablet 100 mg, 1, tablet, By Mouth, Daily, # 30 tablet, Refills 11, Tot. Refills 11, Maintenance, 04/25/21 15:06:00 EST, Route to Pharmacy Electronically, [facility] #[id number], Partial fill upon patient request if the prescription is for a schedule II... Start Date: 04/25/21 Status: Orderedvitamin A 8000 u oral capsule 1 capsule = 8,000 units, By Mouth, Daily, # 100 capsule, 11 Refills, Maintenance, 01/03/22 13:40:00 EDT, [facility] #[id number], Partial fill upon patient request if the prescription is for a schedule II opioid drug., 183, cm, 11/02/21 10:11:00 E... Start Date: 01/03/22 Status: OrderedVitamin B12 1000 mcg oral tablet 1 tablet = 1,000 mcg, By Mouth, Daily, # 30 tablet, 11 Refills, Maintenance, 04/25/21 15:06:00 EST, Tablet, [facility] #[id number], 183, cm, 04/25/21 15:05:00 EST, Height, 77.5, kg, 11/08/19 18:47:00 EDT, Dry Weight Start Date: 04/25/21 Status: Ordered Problem List Condition Effective Dates Status Health Status Informant Alcoholic liver failure(Confirmed) Active Allergic rhinitis(Confirmed) Active Ascites(Confirmed) Active Asthma(Confirmed) Active B12 deficiency(Confirmed) Active DVT, lower extremity(Confirmed) Active Diverticulosis(Confirmed)1 Active Erectile dysfunction(Confirmed) Active Esophageal varices determined by Active endoscopy(Confirmed)2 Esophagitis(Confirmed) Active Folic acid deficiency(Confirmed) Active Left foot drop(Confirmed) Active Gastroesophageal reflux disease with Active hiatal hernia(Confirmed)3 Prothrombin mutation(Confirmed) Active Acute gout(Confirmed) Active Heavy alcohol use(Confirmed) Active Hepatic encephalopathy(Confirmed) Active History of colonoscopy(Confirmed)4 Active Hyperlipidemia(Confirmed) Active Hypertension(Confirmed) Active Hypertensive retinopathy(Confirmed) Active Low serum magnesium level(Confirmed) Active Right groin pain(Confirmed) Active Action tremor(Confirmed) Active Left knee pain(Confirmed) Active Portal hypertensive Active gastropathy(Confirmed)5 Acute pulmonary embolism(Confirmed) Active Polyp of rectum(Confirmed)6 Active Depression, major, recurrent, Active moderate(Confirmed) Retinitis pigmentosa(Confirmed) Active Syncope(Confirmed) Active Vertigo(Confirmed) 02/15/11 Active 1colo 74753zjqq 72312wkl 2000 negative [id number]; repeat 59475ooik [id number] 2018 Social History Social History Type Response Smoking Status Never smoker entered on: 09/28/15 Sex Male Medical Equipment Implanted Date:07/15/19 Target Site:Groin Right Description Quantity MRI Company Model PATCH HERNIA PROLENE MEDIUM - [facility] 1 [employer] n/j&j Wound Closure Unknown (ETPHSM6) FORTINO: No Information Assigning Authority: FDA
--- OUTSIDE RECORDS SUMMARY | 2022-06-20 15:17 | XMS_ITS | Continuity of Care Document ---
:1965 Author Organization [facility] Adult Address [address] [place] [address]- Care Team Providers Name Role Phone Fernando Martin MD Primary Care Physician Encounter [facility] Date(s): 04/20/20 - 04/27/20 [facility] Adult [address] [place] [id number]- Encounter Diagnosis Heavy alcohol use (Discharge Diagnosis) - 04/20/20 Depression (Discharge Diagnosis) - 04/20/20 Attending Physician: Fernando Martin MD Allergies, Adverse Reactions, Alerts Substance Reaction Severity Status NKA Active Immunizations Given and Recorded Vaccine Date Status Refusal Reason influenza virus vaccine, inactivated 04/21/20 Given influenza virus vaccine, inactivated 03/30/19 Given influenza virus vaccine, inactivated 02/17/18 Given influenza virus vaccine, inactivated 07/04/17 Given influenza virus vaccine, inactivated 03/17/13 Given hepatitis B adult vaccine 04/21/20 Given Hepatitis A Adult Vaccine 04/21/20 Given pneumococcal 23-valent vaccine 01/14/18 Given tetanus/diphtheria/pertussis, acel(Tdap) 10/03/16 Given Tetanus Toxoid Vaccine (oldterm) 08/25/06 Given Pneumococcal Vaccine (oldterm) 10/02/05 Given Medications AFO brace left foot AFO brace left foot, See Instructions, # 1 each, Refills 0, Tot. Refills 0, Maintenance, Dx: Left foot drop Use daily, 10/28/19 9:22:00 EDT, Supply Start Date: 10/28/19 Status: Orderedfolic acid 1 mg oral tablet 1 mg, 1, tablet, By Mouth, Daily, # 90 tablet, Refills 3, Tot. Refills 3, Maintenance, 04/20/20 16:35:00 EST, Route to Pharmacy Electronically, [facility] #[id number], 183, cm, 04/20/20 15:57:00 EST, Height, 77.5, kg, 11/08/19 18:47:00 EDT, Dry W... Start Date: 04/20/20 Status: OrderedLaMICtal 100 mg oral tablet 100 mg, 1, tablet, By Mouth, Daily, # 180 tablet, Refills 0, Maintenance, 04/20/20 16:37:00 EST, Partial fill upon patient request if the prescription is for a schedule II opioid drug. Start Date: 04/20/20 Stop Date: 05/20/20 Status: OrderedLasix 40 mg oral tablet 40 mg, 1, tablet, By Mouth, Daily, # 30 tablet, Refills 0, Maintenance, 04/20/20 16:38:00 EST, Partial fill upon patient request if the prescription is for a schedule II opioid drug. Start Date: 04/20/20 Status: Orderedpantoprazole 40 mg oral delayed release tablet 1 tablet = 40 mg, By Mouth, Daily, # 30 tablet, 11 Refills, Maintenance, 08/20/19 8:46:00 EDT, EC Tablet, 183, cm, 07/24/19 10:31:00 EST, Height, 78.5, kg, 07/15/19 6:56:00 EST, Dry Weight Start Date: 08/20/19 Status: OrderedProAir HFA 90 mcg/inh inhalation aerosol with adapter 2, puffs, Inhalation, 4 times a day, for 30 days, # 1 each, Refills 11, Tot. Refills 11, Hard Stop 08/14/20 8:46:00 EDT, 08/20/19 8:46:00 EDT, Route to Pharmacy Electronically, [id number], [facility] #[id number], 183, cm... Start Date: 08/20/19 Stop Date: 08/14/20 Status: Orderedpyridoxine 100 mg oral tablet 1 tablet = 100 mg, By Mouth, Daily, # 30 tablet, 0 Refills, Maintenance, 11/10/19 10:52:00 EDT, Tablet, [facility], 183, cm, 11/10/19 9:27:00 EDT, Height, 77.5, kg, 11/08/19 18:47:00 EDT,Dry Weight Start Date: 11/10/19 Status: Orderedsertraline 100 mg oral tablet 1 tablet = 100 mg, By Mouth, Daily, # 30 tablet, 11 Refills, Maintenance, 08/20/19 8:45:00 EDT, Tablet, [facility] #[id number], 183, cm, 07/24/19 10:31:00 EST, Height, 78.5, kg, 07/15/19 6:56:00 EST, Dry Weight Start Date: 08/20/19 Status: Orderedspironolactone 100 mg oral tablet 100 mg, 1, tablet, By Mouth, Daily, # 30 tablet, Refills 0, Maintenance, 04/20/20 16:38:00 EST, Partial fill upon patient request if the prescription is for a schedule II opioid drug. Start Date: 04/20/20 Status: Orderedthiamine 100 mg oral tablet 100 mg, 1, tablet, By Mouth, Daily, # 30 tablet, Refills 0, Tot. Refills 0, Maintenance, 11/10/19 10:52:00 EDT, Route to Pharmacy Electronically, [facility], 183, cm, 11/10/19 9:27:00 EDT, Height, 77.5, kg, 11/08/19 18:47:00 EDT, Dry Weight Start Date: 11/10/19 Status: OrderedVitamin B12 1000 mcg oral tablet 1 tablet = 1,000 mcg, By Mouth, Daily, # 30 tablet, 11 Refills, Maintenance, 08/20/19 8:46:00 EDT, Tablet, [facility] #[id number], 183, cm, 07/24/19 10:31:00 EST, Height, 78.5, kg, 07/15/19 6:56:00 EST, Dry Weight Start Date: 08/20/19 Status: Ordered Problem List Condition Effective Dates Status Health Status Informant Alcoholic liver failure(Confirmed) Active Allergic rhinitis(Confirmed) Active Asthma(Confirmed) Active Borderline blood [...] Polyp of rectum(Confirmed)4 Active Syncope(Confirmed) Active 1colo 57840sqc 2000 negative [id number]; repeat [id number] 2017 Diagnosis Diagnosis Type Effective Dates Health Clinical Infor mant Status Service Heavy alcohol use Discharge 04/20/20 Diagnosis Depression Discharge 04/20/20 Diagnosis Vital Signs Most recent to oldest [Reference Range]: 1 Height 183 cm (04/20/20 3:57 PM) Mode of Delivery (Oxygen) Room air (04/20/20 3:57 PM) Social History Social History Type Response Smoking Status Never smoker entered on: 09/28/15 Sex Male Medical Equipment Implanted Date:07/15/19 Target Site:Groin Right Description Quantity MRI Company Model PATCH HERNIA PROLENE MEDIUM - ETHC 1 Ethico n/j&j Wound Closure Unknown (ETPHSM6) FORTINO: No Information Assigning Authority: FDA
--- OUTSIDE RECORDS SUMMARY | 2022-06-20 15:17 | XMS_ITS | Continuity of Care Document ---
:1965 Author Organization [facility] [place] Adult Address [address] [place] [address]- Care Team Providers Name Role Phone Fernando Martin MD Primary Care Physician [place] [facility] [place] 05/03/20 - 05/10/20 [facility] [place] [address] [place] [address]- Attending Physician: Fernando Martin MD Allergies, Adverse [...] 05/03/20 10:47:00 EST, Route to Pharmacy Electronically, [facility] #[id number], 183, cm, 05/03/20 10:28:00EST, Height, 77.5, kg, 11/08/19 18:47:00 EDT, Dry... Start Date: 05/03/20 Stop Date: 04/28/21 Status: Orderedlactulose 10 gm/15 ml oral syrup 30 mL = 20 Gm, By Mouth, 3 times a day, # 480 mL, 11 Refills, Maintenance, 05/03/20 11:06:00 EST, Syrup, [facility] #[id number], Partial fill upon patient request if the prescription is for a schedule II opioid drug., 30 mL By Mouth 3 times a day... Start Date: 05/03/20 Status: OrderedLaMICtal 100 mg oral tablet 100 [...] 05/03/20 10:48:00 EST, Route to Pharmacy Electronically, [facility] #[id number], Partial fill upon patientrequest if the prescription is for a schedule II... Start Date: 05/03/20 Status: Orderedmagnesium oxide 400 mg oral tablet 1 tablet = 400 mg, By Mouth, Daily, for 30 days, # 30 tablet, 11 Refills, Acute 04/28/21 10:49:00 EST, 05/03/20 10:49:00 EST, Tablet, [facility] #[id number], Partial fill upon patient request if the [...] 08/20/19 8:46:00 EDT, Route to Pharmacy Electronically, [id number], [facility] #[id number], 183, cm... Start Date: 08/20/19 Stop Date: 08/14/20 Status: Orderedsertraline 100 mg oral tablet 1 tablet = 100 mg, By Mouth, Daily, # 30 tablet, 11 Refills, Maintenance, 08/20/19 8:45:00 EDT, Tablet, [facility] #[id number], 183, cm, 07/24/19 10:31:00 EST, Height, 78.5, kg, 07/15/19 6:56:00 EST, Dry Weight Start Date: 08/20/19 Status: Orderedspironolactone 100 mg oral tablet 100 mg, 1, tablet, By Mouth, Daily, # 30 tablet, Refills 11, Tot. Refills 11, Maintenance, 05/03/20 10:48:00 EST, Route to Pharmacy Electronically, [facility] #[id number], Partial fill upon patient request if the prescription is for a schedule II... Start Date: 05/03/20 Status: OrderedVitamin B12 1000 mcg oral tablet 1 tablet = 1,000 mcg, By Mouth, Daily, # 30 tablet, 11 Refills, Maintenance, 05/03/20 10:47:00 EST, Tablet, [facility] #[id number], 183, cm, 05/03/20 10:28:00 EST, Height, 77.5, [...] Polyp of rectum(Confirmed)4 Active Syncope(Confirmed) Active 1colo 53883dek 2000 negative [id number]; repeat [id number] 2017 Vital Signs Most recent to oldest [Reference Range]: 1 Height 183 cm (05/03/20 10:28 AM) Weight 78.5 kg (05/03/20 10:28 AM) Oxygen Saturation [94-100 %] 98 % (05/03/20 10:28 AM) Pulse Rate [55-90 bpm] 95 bpm *H* (05/03/20 10:28 AM) Body Mass Index [18.5-24.99] 23.44 (05/03/20 10:28 AM) Blood Pressure [90-138/55-84 mm Hg] 100/64 mm Hg (05/03/20 10:28 AM) Mode of Delivery (Oxygen) Room air (05/03/20 10:28 AM) Blood pressure sites Arm, left (05/03/20 10:28 AM) Weight Obtained Via Standing scale (05/03/20 10:28 AM) Social History Social History Type Response Smoking Status Never smoker entered on: 09/28/15 Sex Male Medical Equipment Implanted Date:07/15/19 Target Site:Groin Right Description Quantity MRI Company Model PATCH HERNIA PROLENE MEDIUM - ETHC 1 Ethico n/j&j Wound Closure Unknown (ETPHSM6) FORTINO: No Information Assigning Authority: FDA
--- OUTSIDE RECORDS SUMMARY | 2022-06-20 15:17 | XMS_ITS | Continuity of Care Document ---
:1965 Author Organization [facility] Adult Address [address] [place] [address]- Care Team Providers Name Role Phone Veronica DENIS, Fernando Kwok Primary Care Physician Encounter [facility] Date(s): 04/24/19 - 05/01/19 [facility] [address] [place] [id number]- [facility] Encounter Diagnosis Otalgia (Discharge Diagnosis) - 04/24/19 Attending Physician: Corrie Kang NP Referring Physician: Fernando Martin MD Allergies, Adverse Reactions, [...] each, Refills 11, Tot. Refills 11, Maintenance, 09/29/18 8:16:03 EDT, Route to Pharmacy Electronically, [id number], [facility] [id number] Start Date: 09/29/18 Stop Date: 09/24/19 Status: Orderedcefdinir 300 mg oral capsule 1 capsule = 300 mg, By Mouth, Every 12 hours, for 10 days, # 20 capsule, 0 Refills, Acute 05/04/19 8:56:08 EST, 04/24/19 8:56:08 EST, Capsule, 182.88, cm, 04/24/19 8:42:57 EST, Height Start Date: 04/24/19 Stop Date: 05/04/19 Status: OrderedNasacort 0 Refills, Maintenance, 09/28/15 8:56:41 Start Date: 09/28/15 Status: Orderedpantoprazole 40 mg oral delayed release tablet 1 tablet = 40 mg, By Mouth, Daily, # 30 tablet, 11 Refills, Maintenance, 09/29/18 8:16:04 EDT, EC Tablet Start Date: 09/29/18 Status: OrderedProAir HFA 90 mcg/inh inhalation aerosol with adapter 2, puffs, Inhalation, 4 times a day, for 30 days, # 1 each, Refills 11, Tot. Refills 11, Hard Stop 03/24/20 15:17:48 EST, 03/30/19 15:17:48 EST, Route to Pharmacy Electronically, [id number], [facility] #[id number] Start Date: 03/30/19 Stop Date: 03/24/20 Status: OrderedSEROquel 25 mg oral tablet 25 mg, 1, tablet, By Mouth, 2 times a day, # 60 tablet, Refills 1, Tot. Refills 1, Maintenance, 12/25/18 8:04:20 EDT, Route to Pharmacy Electronically, [id number], [facility] #[id number] Start Date: 12/25/18 Stop Date: 02/23/19 Status: Orderedsertraline 100 mg oral tablet 1 tablet = 100 mg, By Mouth, Daily, # 30 tablet, 11 Refills, Maintenance, 09/29/18 8:16:01 EDT, Tablet Start Date: 09/29/18 Status: OrderedVitamin B12 1000 mcg oral tablet 1 tablet = 1,000 mcg, By Mouth, Daily, # 30 tablet, 11 Refills, Maintenance, 03/30/19 15:17:45 EST, Tablet Start Date: 03/30/19 Status: Ordered Problem List Condition Effective Dates Status Health Status Informant Allergic rhinitis(Confirmed) Active Asthma(Confirmed) Active Borderline blood pressure(Confirmed) Active B12 deficiency(Confirmed) Active DVT, lower extremity(Confirmed) Active Diverticulosis(Confirmed)1 Active Erectile dysfunction(Confirmed) Active Esophagitis(Confirmed) Active Gastroesophageal reflux disease with Active hiatal hernia(Confirmed)2 Prothrombin mutation(Confirmed) Active Acute gout(Confirmed) Active Heavy alcohol use(Confirmed) Active History of colonoscopy(Confirmed)3 Active Hypertension(Confirmed) Active Low serum magnesium level(Confirmed) Active Left knee pain(Confirmed) Active Positional vertigo(Confirmed) 02/15/11 Active Acute pulmonary embolism(Confirmed) Active Polyp of rectum(Confirmed)4 Active Syncope(Confirmed) Active 1colo 27349qpm 2000 negative [id number]; repeat [id number] 2017 Diagnosis Diagnosis Type Effective Dates Health Status Clinical Serv ice Informant Otalgia Discharge 04/24/19 Diagnosis Vital Signs Most recent to oldest [Reference Range]: 1 Height 182.88 cm (04/24/19 8:42 AM) Weight 80.9 kg (04/24/19 8:42 AM) Oxygen Saturation [94-100 %] 98 % (04/24/19 8:42 AM) Pulse Rate [55-90 bpm] 84 bpm (04/24/19 8:42 AM) Body Mass Index [18.5-24.99] 24.19 (04/24/19 8:42 AM) Blood Pressure [90-138/55-84 mm Hg] 140/86 mm Hg *H* (04/24/19 8:42 AM) Temperature [96.8-100.4 DegF] 98.6 DegF (04/24/19 8:42 AM) Blood pressure sites Arm, right (04/24/19 8:42 AM) Temperature Route Oral (04/24/19 8:42 AM) Social History Social History Type Response Smoking Status Never smoker entered on: 09/28/15 Sex Male
--- OUTSIDE RECORDS SUMMARY | 2022-06-20 15:18 | XMS_ITS ---
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 Problem Colon cancer Z12.11 Active 9705176 04 screening Problem Other specified K76.89 Active 2358 00523 diseases of liver ALLERGIES No Known Allergies ENCOUNTERS Encounter Location Date Diagnosis [facility] [address] [address] [place] [facility] [address] [address] [place] [facility] [address] [address] [place] [facility] [address] [address] [place] [facility] [address], [facility] [address] [place] with ascites K70 .11 [facility] [address] [facility] [address] [place] with ascites K70 .11 [facility] [address] [address] [place] [facility] [address] [address] [place] [facility] [address], [place] [facility] [address] [place] with ascites K70 .11 [phone] [facility] [address], [facility] [address] [place] with ascites K70 .11 and [id number] Colon cancer scr eening Z12.11 [facility] [address], [facility] [address] [place] [address] [facility] [address], [facility] [address] [place] with ascites K70 .11 [phone] [facility] [address] [address] [place] [address] [facility] [address], [facility] [address] [place] with ascites K70 .11 [phone] [facility] [address] [address] [place] [address] [facility] [address], [place] [facility] [address] [place] with ascites K70 .11 [phone] [facility] [address] [place], [facility] [address] [place] with ascites K70 .11 [phone] [facility] [address] [place], [facility] [address] [place] with ascites K70 .11 [phone] [facility] [address], [facility] [address] [place] with ascites K70 .11 [id number] [facility] [address] [place] [address] May, Alcoholic hepat itis [place] [phone] with ascit es K70.11 [facility] [address], [facility] [address] [place] with ascites K70 .11 [phone] [facility] [address], [facility] [address] [place] [phone] [facility] [address], [facility] [address] [place] with ascites K70 .11 [phone] [facility] [address] [address] [facility] [address], [place] [address] IMMUNIZATIONS Vaccine Route Administration Date Status Influenza Unknown Mar 28, 2022 Administered Influenza Unknown Jan 18, 2021 Administered Influenza Unknown Feb 24, 2020 Administered SOCIAL HISTORY Qualifiers Date Never Smoker REASON FOR REFERRAL FUNCTIONAL STATUS PLAN OF CARE Activity Details Follow Up 3 Months Reason: Future Appointment Provider Name:Jorge mcbride , 2022-07-16 11:40:00 AM, [address], [address] , [place], [address], Future Test CHEM 7 PROFILE [id number] Future Test LIVER PROFILE [id number] Future Test PROTHROMBIN TIME (PT, INR) 2 [id number] Future Test CBC w DIFF [id number] Pending Test CHEM 7 PROFILE Pending Test LIVER PROFILE Pending Test CBC w/o DIFF Pending Test PROTHROMBIN TIME (PT, INR) Pending Test PARACENTESIS W GUIDANCE Pending Test BASIC METABOLIC PROFILE RAND OM Pending Test LIVER PROFILE Pending Test CBC w/o DIFF Pending Test PROTHROMBIN TIME (PT, INR) Pending Test CHEM 7 PROFILE Pending Test LIVER PROFILE Pending Test CBC w/o DIFF Pending Test LIVER PROFILE Pending Test CBC w/o DIFF Pending Test Comprehensive Met. Panel Pending Test CHEM 7 PROFILE Pending Test LIVER PROFILE Pending Test CHEM 7 PROFILE Pending Test LIVER PROFILE Pending Test CBC w/o DIFF Pending Test HCV LIVER FIBROSIS, FIBRO TE ST Pending Test CHEM 7 PROFILE Pending Test LIVER PROFILE Pending Test CBC w/o DIFF Pending Test PARACENTESIS W GUIDANCE Future/Pending Procedure UPPER GI ENDOSCOPY [id number] VITAL SIGNS Weight 210 lbs 2022-04-09 Weight 173 lbs 2021-09-14 Weight 170 lbs 2021-03-09 Weight 186 lbs 2020-08-08 Weight 172 lbs 2020-05-18 Height 70 in 2022-04-09 Height 70 in 2021-09-14 Height 70 in 2021-03-09 Height 70 in 2020-08-08 Height 70 in 2020-05-18 BMI 30.13 kg/m2 2022-04-09 BMI 24.82 kg/m2 2021-09-14 BMI 24.39 kg/m2 2021-03-09 BMI 26.69 kg/m2 2020-08-08 BMI 24.68 kg/m2 2020-05-18 Temperature 97.1 degrees Fahrenheit 2022-04-09 Temperature 97.8 degrees Fahrenheit 2021-03-09 Temperature 97.7 degrees Fahrenheit 2020-08-08 Temperature 98.0 degrees Fahrenheit 2020-05-18 Blood pressure systolic 000 mm Hg 2022-04-09 Blood pressure diastolic 00 mm Hg 2022-04-09 MEDICATIONS Medication Instructions Dosage Frequency Start End Duration Statu s Date Date Potassium 99 MG Orally Once a 1 tablet 24h 30 day(s) Active day Zinc 100 MG Orally Once a 1 tablet 24h 30 day(s) Act zuri day ProAir HFA Active Magnesium Oxide Active Spironolactone Orally Once a 1 tablet 24h Mar, day(s) Active 100 MG day 2021 Vitamin A 2400 Orally Once a 1 capsule 24h 30 day(s) Active MCG (8000 UT) day with food or milk Vitamin B-12 Active Levothyroxine Orally Once a 1 tablet 24h 30 day(s) A ctive Sodium 25 MCG day in the morning on an empty stomach Escitalopram Active Oxalate Folic Acid Active Pantoprazole Active Sodium Lactulose Active Lactulose 10 Orally 3 times 15 mL as 8h 24 May, Act zuri GM/15ML a day needed 2022 Xifaxan 550 MG Orally Twice a 1 tablet 12h 30 Mar, day(s) Active day 2021 Ibuprofen Not-Taki ng Midrin Active prednisoLONE 5 MG Orally Once a 1 tablet 24h 30 day( s) Active day in the morning with food or milk Furosemide 40 MG Orally Once a 1 tablet 24h Active day PROCEDURES Procedure Date Ordered Result Body Site COLORECTAL CA SCREEN DOC REV September 14, 2021 DOC MEDS VERIFIED W/PT OR RE May 18, 2020 DOC MEDS VERIFIED W/PT OR RE Apr 09, 2022 BP NOT ASSESS PATIENT NOT ELIGIBLE August 08, 2020 DOC MEDS VERIFIED W/PT OR RE August 08, 2020 DOC RSN FOR NOT SCREEN/REC F/U HBP September 14, 2021 DOC RSN FOR NOT SCREEN/REC F/U HBP Mar 09, 2021 UPPR GI ENDOSCOPY, DIAGNOSIS May 31, 2020 UPPR GI ENDOSCOPY, DIAGNOSIS July 26, 2021 Pt scrn tbco id as non user Mar 09, 2021 COLORECTAL CA SCREEN DOC REV May 18, 2020 COLORECTAL CA SCREEN DOC REV Apr 09, 2022 TOBACCO NON-USER May 18, 2020 COLORECTAL CA SCREEN DOC REV August 08, 2020 TOBACCO NON-USER August 08, 2020 DOC RSN FOR NOT SCREEN/REC F/U HBP Apr 09, 2022 DOC MEDS VERIFIED W/PT OR RE September 14, 2021 BP NOT ASSESS PATIENT NOT ELIGIBLE May 18, 2020 DOC MEDS VERIFIED W/PT OR RE Mar 09, 2021 Pt scrn tbco id as non user Apr 09, 2022 Pt 66+ frailty and adv ill Mar 09, 2021 Pt scrn tbco id as non user September 14, 2021 RESULTS Name Result Date Reference Range Complete Blood Count Auto Diff 2022-04-26 White Blood Count 5.6 4.8-10.8 Red Blood Count 2.82 4.60-5.80 Hemoglobin 9.2 14.0-18.0 Hematocrit 28.2 42.0-52.0 Mean Corpuscular Volume 100.0 80.0-98. 0 Mean Corpuscular Hemoglobin 32.6 27.0 -33.0 Mean Corpuscular HGB Conc 32.6 31.0-3 6.0 Red Cell Distribution Width 19.1 11.0 -16.0 Platelet Count 153 160-400 Mean Platelet Volume 10.7 9.4-12.4 Neutrophils Percent Auto 47.1 45-73 Imm Gran Pct Auto 0.4 0.0-0.4 Lymphocytes Percent Auto 31.3 20-40 Monocytes Percent Auto 16.9 2-11 Eosinophils Percent Auto 3.2 0-4 Basophils Percent Auto 1.1 0-2 NRBC Pct Auto 0.0 0.0-0.2 Neutrophils Absolute Auto 2.6 2.0-8. 3 Imm Gran Abs Auto 0.02 0.00-0.03 Lymphocytes Absolute Auto 1.7 1.2-4. 9 Monocytes Absolute Auto 0.9 0.1-1.2 Eosinophils Absolute Auto 0.2 0.0-0. 4 Basophils Absolute Auto 0.1 0.0-0.2 NRBC Abs Auto 0.000 0.0-0.012 Prothrombin Time INR 2022-04-26 Prothrombin Time 21.2 10.0-13.1 INTERNATIONAL NORM RATIO 1.8 0.9-1.1 Liver Panel 2022-04-26 Bilirubin Total 9.6 0.0-1.0 Bilirubin Direct 4.8 0.0-0.5 Aspartate Amino Transferase 70 5-37 Alanine Aminotransferase 35 0-40 Total Protein 7.3 6.5-8.0 Albumin Level 2.9 3.5-5.0 Alkaline Phosphatase 200 39-117 Basic Metabolic Panel 2022-04-26 Sodium 134 135-145 Potassium 5.3 3.3-5.1 Chloride 107 96-108 Carbon Dioxide 20 22-29 Anion Gap 12 12-20 Blood Urea Nitrogen 14 9-16 Creatinine 1.64 0.5-1.4 Estimated Glomerular Filt Rate 43 Glucose Random 144 60-115 Calcium 9.0 8.4-10.2 Complete Blood Count Auto Diff 2022-04-16 White Blood Count 5.2 4.8-10.8 Red Blood Count 2.64 4.60-5.80 Hemoglobin 8.7 14.0-18.0 Hematocrit 26.3 42.0-52.0 Mean Corpuscular Volume 99.6 80.0-98. 0 Mean Corpuscular Hemoglobin 33.0 27.0 -33.0 Mean Corpuscular HGB Conc 33.1 31.0-3 6.0 Red Cell Distribution Width 21.1 11.0 -16.0 Platelet Count 94 160-400 Mean Platelet Volume 10.2 9.4-12.4 Neutrophils Percent Auto 49.7 45-73 Imm Gran Pct Auto 0.2 0.0-0.4 Lymphocytes Percent Auto 26.2 20-40 Monocytes Percent Auto 21.5 2-11 Eosinophils Percent Auto 1.6 0-4 Basophils Percent Auto 0.8 0-2 NRBC Pct Auto 0.0 0.0-0.2 Neutrophils Absolute Auto 2.6 2.0-8. 3 Imm Gran Abs Auto 0.01 0.00-0.03 Lymphocytes Absolute Auto 1.4 1.2-4. 9 Monocytes Absolute Auto 1.1 0.1-1.2 Eosinophils Absolute Auto 0.1 0.0-0. 4 Basophils Absolute Auto 0.0 0.0-0.2 NRBC Abs Auto 0.000 0.0-0.012 Prothrombin Time INR 2022-04-16 Prothrombin Time 21.7 10.0-13.1 INTERNATIONAL NORM RATIO 1.8 0.9-1.1 Partial Thromboplastin Time 2022-04-16 Partial Thromboplastin Time 36.1 26.0 -36.4 US paracentesis abd w/image 2022-04-16 Complete Blood Count no Diff 2022-04-14 White Blood Count 6.2 4.8-10.8 Red Blood Count 2.82 4.60-5.80 Hemoglobin 9.3 14.0-18.0 Hematocrit 27.7 42.0-52.0 Mean Corpuscular Volume 98.2 80.0-98. 0 Mean Corpuscular Hemoglobin 33.0 27.0 -33.0 Mean Corpuscular HGB Conc 33.6 31.0-3 6.0 Red Cell Distribution Width 21.3 11.0 -16.0 Platelet Count 101 160-400 Mean Platelet Volume 10.8 9.4-12.4 NRBC Pct Auto 0.0 0.0-0.2 NRBC Abs Auto 0.000 0.0-0.012 Prothrombin Time INR 2022-04-14 Prothrombin Time 21.2 10.0-13.1 INTERNATIONAL NORM RATIO 1.8 0.9-1.1 Comprehensive Met. Panel 2022-04-14 Sodium 136 135-145 Potassium 5.2 3.3-5.1 Chloride 105 96-108 Carbon Dioxide 23 22-29 Anion Gap 13 12-20 Blood Urea Nitrogen 17 9-16 Creatinine 1.55 0.5-1.4 Estimated Glomerular Filt Rate 46 Glucose Random 105 60-115 Calcium 9.1 8.4-10.2 Bilirubin Total 12.9 0.0-1.0 Aspartate Amino Transferase 78 5-37 Alanine Aminotransferase 51 0-40 Total Protein 7.0 6.5-8.0 Albumin Level 2.6 3.5-5.0 Alkaline Phosphatase 185 39-117 Liver Panel 2022-04-14 Bilirubin Direct 6.5 0.0-0.5 Leukocytes Stool Qualitative 2022-03-10 Leukocytes Stool Qualitative FEW: < 2/OIF NEG ATIVE Ova and Parasite 2022-03-10 Ova and Parasite SEE NOTE GI PANEL 2022-03-10 Campylobacter Not Detected Not Detect. Plesiomonas shigelloides Not Detected Not Det ect. Salmonella Not Detected Not Detect. Vibrio Not Detected Not Detect. Vibrio Cholerae Not Detected Not Detect. Yersinia enterocolitica Detected Not Dete ct. E. coli EAEC Not Detected Not Detect. E. coli EPEC Not Detected Not Detect. E. coli ETEC Not Detected Not Detect. E. coli STEC Not Detected Not Detect. E. coli O157 Not applicable Not Detect. Shigella sp./EIEC Not Detected Not Detect. Cryptosporidium Not Detected Not Detect. Cyclospora cayetanensis Not Detected Not Dete ct. Entamoeba histolytica Not Detected Not Detect . Giardia lamblia Not Detected Not Detect. Adenovirus F 40/41 Not Detected Not Detect. Astrovirus Not Detected Not Detect. Norovirus GI/GII Not Detected Not Detect. Rotavirus A Not Detected Not Detect. Sapovirus Not Detected Not Detect. Campylobacter Not Detected Not Detect. Plesiomonas shigelloides Not Detected Not Det ect. Salmonella Not Detected Not Detect. Vibrio Not Detected Not Detect. Vibrio Cholerae Not Detected Not Detect. Yersinia enterocolitica Detected Not Dete ct. E. coli EAEC Not Detected Not Detect. E. coli EPEC Not Detected Not Detect. E. coli ETEC Not Detected Not Detect. E. coli STEC Not Detected Not Detect. E. coli O157 Not applicable Not Detect. Shigella sp./EIEC Not Detected Not Detect. Cryptosporidium Not Detected Not Detect. Cyclospora cayetanensis Not Detected Not Dete ct. Entamoeba histolytica Not Detected Not Detect . Giardia lamblia Not Detected Not Detect. Adenovirus F 40/41 Not Detected Not Detect. Astrovirus Not Detected Not Detect. Norovirus GI/GII Not Detected Not Detect. Rotavirus A Not Detected Not Detect. Sapovirus Not Detected Not Detect. Campylobacter Not Detected Not Detect. Plesiomonas shigelloides Not Detected Not Det ect. Salmonella Not Detected Not Detect. Vibrio Not Detected Not Detect. Vibrio Cholerae Not Detected Not Detect. Yersinia enterocolitica Detected Not Dete ct. E. coli EAEC Not Detected Not Detect. E. coli EPEC Not Detected Not Detect. E. coli ETEC Not Detected Not Detect. E. coli STEC Not Detected Not Detect. E. coli O157 Not applicable Not Detect. Shigella sp./EIEC Not Detected Not Detect. Cryptosporidium Not Detected Not Detect. Cyclospora cayetanensis Not Detected Not Dete ct. Entamoeba histolytica Not Detected Not Detect . Giardia lamblia Not Detected Not Detect. Adenovirus F 40/41 Not Detected Not Detect. Astrovirus Not Detected Not Detect. Norovirus GI/GII Not Detected Not Detect. Rotavirus A Not Detected Not Detect. Sapovirus Not Detected Not Detect. Type and Screen 2022-03-05 Blood Type OP Antibody Screen NEGATIVE Red Blood Cells 2022-03-05 Red Blood Cells [id number] OP RC Red Blood Cells TRANSFUSED 03/06/221603 Red Blood Cells [id number] OP RC Red Blood Cells TRANSFUSED 03/06/222017 Red Blood Cells [id number] OP RC Red Blood Cells TRANSFUSED 03/05/221958 Complete Blood Count Auto Diff 2021-11-02 White Blood Count 4.6 4.8-10.8 Red Blood Count 2.85 4.60-5.80 Hemoglobin 10.1 14.0-18.0 Hematocrit 31.2 42.0-52.0 Mean Corpuscular Volume 109.5 80.0-98. 0 Mean Corpuscular Hemoglobin 35.4 27.0 -33.0 Mean Corpuscular HGB Conc 32.4 31.0-3 6.0 Red Cell Distribution Width 14.7 11.0 -16.0 Platelet Count 88 160-400 Mean Platelet Volume 10.0 9.4-12.4 Neutrophils Percent Auto 56.2 45-73 Imm Gran Pct Auto 0.4 0.0-0.4 Lymphocytes Percent Auto 17.7 20-40 Monocytes Percent Auto 23.4 2-11 Eosinophils Percent Auto 1.9 0-4 Basophils Percent Auto 0.4 0-2 NRBC Pct Auto 0.0 0.0-0.2 Neutrophils Absolute Auto 2.6 2.0-8. 3 Imm Gran Abs Auto 0.02 0.00-0.03 Lymphocytes Absolute Auto 0.8 1.2-4. 9 Monocytes Absolute Auto 1.1 0.1-1.2 Eosinophils Absolute Auto 0.1 0.0-0. 4 Basophils Absolute Auto 0.0 0.0-0.2 NRBC Abs Auto 0.000 0.0-0.012 White Blood Count 4.6 4.8-10.8 Red Blood Count 2.85 4.60-5.80 Hemoglobin 10.1 14.0-18.0 Hematocrit 31.2 42.0-52.0 Mean Corpuscular Volume 109.5 80.0-98. 0 Mean Corpuscular Hemoglobin 35.4 27.0 -33.0 Mean Corpuscular HGB Conc 32.4 31.0-3 6.0 Red Cell Distribution Width 14.7 11.0 -16.0 Platelet Count 88 160-400 Mean Platelet Volume 10.0 9.4-12.4 Neutrophils Percent Auto 56.2 45-73 Imm Gran Pct Auto 0.4 0.0-0.4 Lymphocytes Percent Auto 17.7 20-40 Monocytes Percent Auto 23.4 2-11 Eosinophils Percent Auto 1.9 0-4 Basophils Percent Auto 0.4 0-2 NRBC Pct Auto 0.0 0.0-0.2 Neutrophils Absolute Auto 2.6 2.0-8. 3 Imm Gran Abs Auto 0.02 0.00-0.03 Lymphocytes Absolute Auto 0.8 1.2-4. 9 Monocytes Absolute Auto 1.1 0.1-1.2 Eosinophils Absolute Auto 0.1 0.0-0. 4 Basophils Absolute Auto 0.0 0.0-0.2 NRBC Abs Auto 0.000 0.0-0.012 Comprehensive [facility]. Panel Fast 2021-11-02 Sodium 139 135-145 Potassium 3.4 3.3-5.1 Chloride 107 96-108 Carbon Dioxide 24 22-29 Anion Gap 11 12-20 Blood Urea Nitrogen 12 9-16 Creatinine 1.17 0.5-1.4 Estimated Glomerular Filt Rate > 60 Glucose Fasting 118 60-99 Calcium 8.7 8.4-10.2 Bilirubin Total 5.1 0.0-1.0 Aspartate Amino Transferase 86 5-37 Alanine Aminotransferase 30 0-40 Total Protein 8.2 6.5-8.0 Albumin Level 3.4 3.5-5.0 Alkaline Phosphatase 194 39-117 Liver Panel 2021-11-02 Bilirubin Direct 2.7 0.0-0.5 SLIDE REVIEW 2021-11-02 SLIDE REVIEW VERIFIED Complete Blood Count Auto Diff 2021-09-05 White Blood Count 6.7 4.8-10.8 Red Blood Count 3.26 4.60-5.80 Hemoglobin 11.4 14.0-18.0 Hematocrit 34.4 42.0-52.0 Mean Corpuscular Volume 105.5 80.0-98. 0 Mean Corpuscular Hemoglobin 35.0 27.0 -33.0 Mean Corpuscular HGB Conc 33.1 31.0-3 6.0 Red Cell Distribution Width 14.0 11.0 -16.0 Platelet Count 131 160-400 Mean Platelet Volume 10.3 9.4-12.4 Neutrophils Percent Auto 58.2 45-73 Imm Gran Pct Auto 0.3 0.0-0.4 Lymphocytes Percent Auto 17.0 20-40 Monocytes Percent Auto 20.2 2-11 Eosinophils Percent Auto 3.2 0-4 Basophils Percent Auto 1.1 0-2 NRBC Pct Auto 0.0 0.0-0.2 Neutrophils Absolute Auto 3.9 2.0-8. 3 Imm Gran Abs Auto 0.02 0.00-0.03 Lymphocytes Absolute Auto 1.1 1.2-4. 9 Monocytes Absolute Auto 1.3 0.1-1.2 Eosinophils Absolute Auto 0.2 0.0-0. 4 Basophils Absolute Auto 0.1 0.0-0.2 NRBC Abs Auto 0.000 0.0-0.012 Prothrombin Time INR 2021-09-05 Prothrombin Time 15.2 9.9-13.0 INTERNATIONAL NORM RATIO 1.3 0.9-1.1 Comprehensive Met. Panel 2021-09-05 Sodium 134 135-145 Potassium 5.6 3.3-5.1 Chloride 103 96-108 Carbon Dioxide 22 22-29 Anion Gap 15 12-20 Blood Urea Nitrogen 23 9-16 Creatinine 1.58 0.5-1.4 Estimated Glomerular Filt Rate 45 Glucose Random 100 60-115 Calcium 9.5 8.4-10.2 Bilirubin Total 4.9 0.0-1.0 Aspartate Amino Transferase 83 5-37 Alanine Aminotransferase 31 0-40 Total Protein 9.4 6.5-8.0 Albumin Level 3.7 3.5-5.0 Alkaline Phosphatase 172 39-117 Liver Panel 2021-09-05 Bilirubin Direct 2.5 0.0-0.5 Liver Fibrosis Pnl 2021-09-05 Liver Fibrosis Score 0.88 Liver Fibrosis Stage F4 Liver Fibrosis Interpretation SEE NOTE Nec Inflam Act Score 0.24 Nec Inflam Act Grade A0-A1 Nec Inflam Act Interpretation SEE NOTE ZWE-[id number]-7-Macroglobulin 239 106-27 9 FIB-Haptoglobin 85 43-212 FIB-Apolipoprotein A1 169 94-176 FIB-Total Bilirubin 4.1 0.2-1.2 FIB-GGT 415 3-85 FIB-ALT 25 9-46 Reference ID [id number] Footnote SEE NOTE SLIDE REVIEW 2021-09-05 SLIDE REVIEW VERIFIED Complete Blood Count Auto Diff 2021-03-09 White Blood Count 6.0 4.8-10.8 Red Blood Count 2.99 4.60-5.80 Hemoglobin 11.4 14.0-18.0 Hematocrit 32.6 42-52 Mean Corpuscular Volume 109.0 80-98 Mean Corpuscular Hemoglobin 38.1 27.0 -33.0 Mean Corpuscular HGB Conc 35.0 31.0-3 6.0 Red Cell Distribution Width 12.4 11.0 -16.0 Platelet Count 117 160-400 Mean Platelet Volume 9.0 9.4-12.4 Neutrophils Percent Auto 61.2 45-73 Imm Gran Pct Auto 0.2 0.0-0.4 Lymphocytes Percent Auto 15.9 20-40 Monocytes Percent Auto 17.3 2-11 Eosinophils Percent Auto 4.4 0-4 Basophils Percent Auto 1.0 0-2 NRBC Pct Auto 0.0 0.0-0.2 Neutrophils Absolute Auto 3.7 2.0-8. 3 Imm Gran Abs Auto 0.01 0.00-0.03 Lymphocytes Absolute Auto 1.0 1.2-4. 9 Monocytes Absolute Auto 1.0 0.1-1.2 Eosinophils Absolute Auto 0.3 0.0-0. 4 Basophils Absolute Auto 0.1 0.0-0.2 NRBC Abs Auto 0.000 0.0-0.012 Prothrombin Time INR 2021-03-09 Prothrombin Time 13.8 9.9-13.0 INTERNATIONAL NORM RATIO 1.2 0.9-1.1 Comprehensive Met. Panel 2021-03-09 Sodium 135 135-145 Potassium 4.5 3.3-5.1 Chloride 102 96-108 Carbon Dioxide 25 22-29 Anion Gap 13 12-20 Blood Urea Nitrogen 14 9-16 Creatinine 1.39 0.5-1.4 Estimated Glomerular Filt Rate 53 Glucose Random 132 60-115 Calcium 9.7 8.4-10.2 Bilirubin Total 3.9 0.0-1.0 Aspartate Amino Transferase 80 5-37 Alanine Aminotransferase 42 0-40 Total Protein 8.4 6.5-8.0 Albumin Level 4.1 3.5-5.0 Alkaline Phosphatase 173 39-117 Liver Panel 2021-03-09 Bilirubin Direct 2.3 0.0-0.5 Complete Blood Count no Diff 2020-12-05 White Blood Count 5.0 4.8-10.8 Red Blood Count 3.10 4.60-5.80 Hemoglobin 11.6 14.0-18.0 Hematocrit 33.9 42-52 Mean Corpuscular Volume 109.4 80-98 Mean Corpuscular Hemoglobin 37.4 27.0 -33.0 Mean Corpuscular HGB Conc 34.2 31.0-3 6.0 Red Cell Distribution Width 13.2 11.0 -16.0 Platelet Count 115 160-400 Mean Platelet Volume 9.5 9.4-12.4 NRBC Pct Auto 0.0 0.0-0.2 NRBC Abs Auto 0.000 0.0-0.012 Liver Panel 2020-12-05 Bilirubin Total 5.5 0.0-1.0 Bilirubin Direct 3.0 0.0-0.5 Aspartate Amino Transferase 107 5-37 Alanine Aminotransferase 45 0-40 Total Protein 8.0 6.5-8.0 Albumin Level 4.0 3.5-5.0 Alkaline Phosphatase 237 39-117 Basic Metabolic Panel 2020-12-05 Sodium 140 135-145 Potassium 3.6 3.3-5.1 Chloride 101 96-108 Carbon Dioxide 28 22-29 Anion Gap 15 12-20 Blood Urea Nitrogen 10 9-16 Creatinine 1.33 0.5-1.4 Estimated Glomerular Filt Rate 56 Glucose Random 131 60-115 Calcium 9.2 8.4-10.2 Complete Blood Count no Diff 2020-08-05 White Blood Count 6.8 4.8-10.8 Red Blood Count 3.48 4.60-5.80 Hemoglobin 11.7 14.0-18.0 Hematocrit 34.8 42-52 Mean Corpuscular Volume 100.0 80-98 Mean Corpuscular Hemoglobin 33.6 27.0 -33.0 Mean Corpuscular HGB Conc 33.6 31.0-3 6.0 Red Cell Distribution Width 15.8 11.0 -16.0 Platelet Count 168 160-400 Mean Platelet Volume 9.0 9.4-12.4 NRBC Pct Auto 0.0 0.0-0.2 NRBC Abs Auto 0.000 0.0-0.012 Prothrombin Time INR 2020-08-05 Prothrombin Time 14.4 10.8-13.0 INTERNATIONAL NORM RATIO 1.2 0.9-1.1 Liver Panel 2020-08-05 Bilirubin Total 3.8 0.0-1.0 Bilirubin Direct 1.6 0.0-0.5 Aspartate Amino Transferase 56 5-37 Alanine Aminotransferase 28 0-40 Total Protein 7.5 6.5-8.0 Albumin Level 3.8 3.5-5.0 Alkaline Phosphatase 129 39-117 Basic Metabolic Panel 2020-08-05 Sodium 139 135-145 Potassium 4.3 3.3-5.1 Chloride 105 96-108 Carbon Dioxide 25 22-29 Anion Gap 13 12-20 Blood Urea Nitrogen 14 9-16 Creatinine 1.36 0.5-1.4 Estimated Glomerular Filt Rate 54 Glucose Random 154 60-115 Calcium 9.4 8.4-10.2 Complete Blood Count no Diff 2020-07-19 White Blood Count 7.1 4.8-10.8 Red Blood Count 3.43 4.60-5.80 Hemoglobin 11.4 14.0-18.0 Hematocrit 33.8 42-52 Mean Corpuscular Volume 98.5 80-98 Mean Corpuscular Hemoglobin 33.2 27.0 -33.0 Mean Corpuscular HGB Conc 33.7 31.0-3 6.0 Red Cell Distribution Width 15.8 11.0 -16.0 Platelet Count 184 160-400 Mean Platelet Volume 8.7 9.4-12.4 NRBC Pct Auto 0.0 0.0-0.2 NRBC Abs Auto 0.000 0.0-0.012 Comprehensive Met. Panel 2020-07-19 Sodium 139 135-145 Potassium 4.5 3.3-5.1 Chloride 104 96-108 Carbon Dioxide 25 22-29 Anion Gap 15 12-20 Blood Urea Nitrogen 19 9-16 Creatinine 1.51 0.5-1.4 Estimated Glomerular Filt Rate 48 Glucose Random 102 60-115 Calcium 9.2 8.4-10.2 Bilirubin Total 3.5 0.0-1.0 Aspartate Amino Transferase 71 5-37 Alanine Aminotransferase 42 0-40 Total Protein 7.2 6.5-8.0 Albumin Level 3.7 3.5-5.0 Alkaline Phosphatase 159 39-117 Liver Panel 2020-07-19 Bilirubin Direct 1.5 0.0-0.5 Complete Blood Count no Diff 2020-07-08 White Blood Count 6.7 4.8-10.8 Red Blood Count 3.21 4.60-5.80 Hemoglobin 10.6 14.0-18.0 Hematocrit 32.2 42-52 Mean Corpuscular Volume 100.3 80-98 Mean Corpuscular Hemoglobin 33.0 27.0 -33.0 Mean Corpuscular HGB Conc 32.9 31.0-3 6.0 Red Cell Distribution Width 14.6 11.0 -16.0 Platelet Count 167 160-400 Mean Platelet Volume 9.0 9.4-12.4 NRBC Pct Auto 0.0 0.0-0.2 NRBC Abs Auto 0.000 0.0-0.012 Comprehensive Met. Panel 2020-07-08 Sodium 140 135-145 Potassium 5.3 3.3-5.1 Chloride 109 96-108 Carbon Dioxide 22 22-29 Anion Gap 14 12-20 Blood Urea Nitrogen 13 9-16 Creatinine 1.15 0.5-1.4 Estimated Glomerular Filt Rate > 60 Glucose Random 86 60-115 Calcium 9.0 8.4-10.2 Bilirubin Total 2.5 0.0-1.0 Aspartate Amino Transferase 66 5-37 Alanine Aminotransferase 39 0-40 Total Protein 6.6 6.5-8.0 Albumin Level 3.3 3.5-5.0 Alkaline Phosphatase 169 39-117 Liver Panel 2020-07-08 Bilirubin Direct 1.5 0.0-0.5 Comprehensive Met. Panel 2020-06-24 Sodium 136 135-145 Potassium 5.0 3.3-5.1 Chloride 103 96-108 Carbon Dioxide 24 22-29 Anion Gap 14 12-20 Blood Urea Nitrogen 25 9-16 Creatinine 1.40 0.5-1.4 Estimated Glomerular Filt Rate 52 Glucose Random 125 60-115 Calcium 9.5 8.4-10.2 Bilirubin Total 3.0 0.0-1.0 Aspartate Amino Transferase 71 5-37 Alanine Aminotransferase 55 0-40 Total Protein 6.9 6.5-8.0 Albumin Level 3.5 3.5-5.0 Alkaline Phosphatase 195 39-117 Liver Panel 2020-06-24 Bilirubin Direct 2.0 0.0-0.5 Complete Blood Count no Diff 2020-06-13 White Blood Count 5.3 4.8-10.8 Red Blood Count 3.61 4.60-5.80 Hemoglobin 12.1 14.0-18.0 Hematocrit 36.3 42-52 Mean Corpuscular Volume 100.6 80-98 Mean Corpuscular Hemoglobin 33.5 27.0 -33.0 Mean Corpuscular HGB Conc 33.3 31.0-3 6.0 Red Cell Distribution Width 12.2 11.0 -16.0 Platelet Count 220 160-400 Mean Platelet Volume 9.0 9.4-12.4 NRBC Pct Auto 0.0 0.0-0.2 NRBC Abs Auto 0.000 0.0-0.012 Comprehensive Met. Panel 2020-06-13 Sodium 136 135-145 Potassium 4.9 3.3-5.1 Chloride 101 96-108 Carbon Dioxide 26 22-29 Anion Gap 14 12-20 Blood Urea Nitrogen 27 9-16 Creatinine 1.57 0.5-1.4 Estimated Glomerular Filt Rate 46 Glucose Random 129 60-115 Calcium 10.0 8.4-10.2 Bilirubin Total 4.5 0.0-1.0 Aspartate Amino Transferase 364 5-37 Alanine Aminotransferase 85 0-40 Total Protein 7.5 6.5-8.0 Albumin Level 3.7 3.5-5.0 Alkaline Phosphatase 141 39-117 Liver Panel 2020-06-13 Bilirubin Direct 2.9 0.0-0.5 Complete Blood Count Auto Diff 2020-05-24 White Blood Count 8.3 4.8-10.8 Red Blood Count 3.39 4.60-5.80 Hemoglobin 11.8 14.0-18.0 Hematocrit 36.0 42-52 Mean Corpuscular Volume 106.2 80-98 Mean Corpuscular Hemoglobin 34.8 27.0 -33.0 Mean Corpuscular HGB Conc 32.8 31.0-3 6.0 Red Cell Distribution Width 11.8 11.0 -16.0 Platelet Count 277 160-400 Mean Platelet Volume 9.2 9.4-12.4 Neutrophils Percent Auto 72.1 45-73 Imm Gran Pct Auto 0.6 0.0-0.4 Lymphocytes Percent Auto 14.4 20-40 Monocytes Percent Auto 11.2 2-11 Eosinophils Percent Auto 1.3 0-4 Basophils Percent Auto 0.4 0-2 NRBC Pct Auto 0.0 0.0-0.2 Neutrophils Absolute Auto 6.0 2.0-8. 3 Imm Gran Abs Auto 0.05 0.00-0.03 Lymphocytes Absolute Auto 1.2 1.2-4. 9 Monocytes Absolute Auto 0.9 0.1-1.2 Eosinophils Absolute Auto 0.1 0.0-0. 4 Basophils Absolute Auto 0.0 0.0-0.2 NRBC Abs Auto 0.000 0.0-0.012 Prothrombin Time INR 2020-05-24 Prothrombin Time 15.6 10.8-13.0 INTERNATIONAL NORM RATIO 1.3 0.9-1.1 Comprehensive [place]. Panel Fast 2020-05-24 Sodium 137 135-145 Potassium 4.7 3.3-5.1 Chloride 99 96-108 Carbon Dioxide 28 22-29 Anion Gap 15 12-20 Blood Urea Nitrogen 14 9-16 Creatinine 1.14 0.5-1.4 Estimated Glomerular Filt Rate > 60 Glucose Fasting 105 60-99 Calcium 9.0 8.4-10.2 Bilirubin Total 7.3 0.0-1.0 Aspartate Amino Transferase 109 5-37 Alanine Aminotransferase 44 0-40 Total Protein 7.4 6.5-8.0 Albumin Level 3.3 3.5-5.0 Alkaline Phosphatase 167 39-117 Liver Panel 2020-05-24 Bilirubin Direct 5.4 0.0-0.5 US paracentesis abd w/image 2020-05-23 Complete Blood Count Auto Diff 2020-05-18 White Blood Count 10.3 4.8-10.8 Red Blood Count 3.09 4.60-5.80 Hemoglobin 10.9 14.0-18.0 Hematocrit 33.8 42-52 Mean Corpuscular Volume 109.4 80-98 Mean Corpuscular Hemoglobin 35.3 27.0 -33.0 Mean Corpuscular HGB Conc 32.2 31.0-3 6.0 Red Cell Distribution Width 12.0 11.0 -16.0 Platelet Count 277 160-400 Mean Platelet Volume 9.3 9.4-12.4 Neutrophils Percent Auto 73.1 45-73 Imm Gran Pct Auto 0.4 0.0-0.4 Lymphocytes Percent Auto 13.8 20-40 Monocytes Percent Auto 10.5 2-11 Eosinophils Percent Auto 1.8 0-4 Basophils Percent Auto 0.4 0-2 NRBC Pct Auto 0.0 0.0-0.2 Neutrophils Absolute Auto 7.5 2.0-8. 3 Imm Gran Abs Auto 0.04 0.00-0.03 Lymphocytes Absolute Auto 1.4 1.2-4. 9 Monocytes Absolute Auto 1.1 0.1-1.2 Eosinophils Absolute Auto 0.2 0.0-0. 4 Basophils Absolute Auto 0.0 0.0-0.2 NRBC Abs Auto 0.000 0.0-0.012 Prothrombin Time INR 2020-05-18 Prothrombin Time 15.9 10.8-13.0 INTERNATIONAL NORM RATIO 1.3 0.9-1.1 Partial Thromboplastin Time 2020-05-18 Partial Thromboplastin Time 35.6 24.1 -38.0 REASON FOR VISIT Patient presents today for hepatitis, refill spirolactulone , refill of lactulose, SLEEPING ALL THE TIME CONFUSION, labs , refill of XXIXAXAN 550 mg tablet, Patient presents today for alcoholic hepatitis, hops f/u appt, Patient presents today for cirrohsis, labs, Patient presents today for cirrhosis, cirrhosis, Patient presents today for CIRRHOSIS, Pt no show, Patient presents today for cirrhosis, Patient presents today for cirrhoisis , COVID Screen, need lab orders, lab results, labs, lab work,since increase in meds ran out needs refills , cirrhosis, labs, H & P for paracenthesis, patientpresents today for cirrhosis, COVID Ques. , requesting appt for son/dx cirrhosis Insurance Providers [facility] Health Member Patient Patient Patient Patient Patient Subscriber Subscriber Subscriber Group Insurance Plan Plan Plan Plan ID Relationship Address Phone Name Date of ID Name Date of No Type Insurance Insurance Insurance Coverage to Subscriber Address Phone Name Dates MEDICAID [id number] MEDICAID self FAM [id number] [address] [place] [id number] [place] [address] [facility] [id number]
[2022-06-20 15:26] LABS: MANUAL DIFF FLAG NO
[2022-06-20 15:27] LABS: Basophils Percent Auto 0.6 % (0-2); Eosinophils Absolute Auto 0.1 X10*3/uL (0.0-0.4); Eosinophils Percent Auto 2.3 % (0-4); Hematocrit 26.2 % (42.0-52.0); Hemoglobin 8.9 g/dl (14.0-18.0); Imm Gran Abs Auto 0.01 X10*3/uL (0.00-0.03); Imm Gran Pct Auto 0.2 % (0.0-0.4); Lymphocytes Absolute Auto 1.4 X10*3/uL (1.2-4.9); Lymphocytes Percent Auto 27.8 % (20-40); Mean Corpuscular Hemoglobin 31.3 pg (27.0-33.0); Mean Corpuscular Volume 92.3 fL (80.0-98.0); Mean Platelet Volume 10.1 fL (9.4-12.4); Monocytes Absolute Auto 0.7 X10*3/uL (0.1-1.2); Monocytes Percent Auto 15.1 % (2-11); Neutrophils Absolute Auto 2.6 x10*3/uL (2.0-8.3); Platelet Count 114 X10*3/uL (160-400); Red Blood Count 2.84 X10*6/uL (4.60-5.80); Red Cell Distribution Width 18.3 % (11.0-16.0); White Blood Count 4.9 X10*3/uL (4.8-10.8)
[2022-06-20 15:36] LABS: Appearance Urine Clear; Color Urine Dark Yellow; Glucose Urine UA Negative (Negative); Leukocyte Esterase Urine Trace (Negative); Nitrite Urine Negative (Negative); UMIC TRIGGER UACC YES; Urine Blood Negative (Negative); Urine Ketones Trace mg/dL (Negative); Urine Protein Negative (Neg-Trace)
[2022-06-20] MEDS: 0.9 % Sodium Chloride 500 ML IV (15:36)
[2022-06-20] MEDS: LORazepam 2 MG/ML VIAL 1 MG IVPUSH (15:37)
[2022-06-20 15:43] LABS: INTERNATIONAL NORM RATIO 1.8 (0.9-1.1); Prothrombin Time 21.1 SEC (10.0-13.1)
[2022-06-20 15:45] LABS: Alanine Aminotransferase 24 U/L (0-40); Albumin Level 2.8 g/dL (3.5-5.0); Alkaline Phosphatase 222 U/L (39-117); Anion Gap 10 (12-20); Aspartate Amino Transferase 55 U/L (5-37); Bilirubin Total 7.5 mg/dL (0.0-1.0); Blood Urea Nitrogen 18 mg/dL (9-16); Calcium 8.9 mg/dL (8.4-10.2); Carbon Dioxide 21 mmol/L (22-29); Chloride 108 mmol/L (96-108); Creatinine Clr Calc Pharmacy 44.1; Estimated Glomerular Filt Rate 34; Glucose Random 129 mg/dL (60-115); Lipase 52 U/L (8-78); Potassium 4.7 mmol/L (3.3-5.1); Sodium 134 mmol/L (135-145); Total Protein 6.7 g/dL (6.5-8.0)
[2022-06-20 15:46] LABS: COVID-19 Test Negative (Negative); IDNOW Serial# BCCEAD1C
[2022-06-20 15:46] LABS: Amphetamine Screen Urine Not Detected (Not Detect); Barbiturates, Urine Not Detected (Not Detect); Benzodiazepines Screen Urine Not Detected (Not Detect); Cannabinoid Screen Urine POSITIVE (Not Detect); Cocaine Screen Urine Not Detected (Not Detect); Fentanyl, urine Not Detected (Not Detect); Opiate Screen Urine Not Detected (Not Detect); Phencyclidine Screen Urine Not Detected (Not Detect)
--- NOTE | 2022-06-20 15:47 | MHC.EDTECH ---
THIS PCT ASSUMED CARE OF PATIENT AT 1500 ,PT VITALS SIGN TAKEN ,PATIENT EKG DONE .
[2022-06-20 15:50] LABS: B Type Natriuretic Peptide 77 pg/mL (<100)
[2022-06-20 15:51] LABS: Ethanol < 10 mg/dL
[2022-06-20 15:52] LABS: Troponin-I High Sensitivity 9.8 ng/L (<3.5-35.0)
[2022-06-20 15:59] LABS: Lactic Acid 2.5 mmol/L (0.5-2.0)
[2022-06-20 16:07] LABS: TSH reflex Free T4 1.79 uIU/mL (0.32-4.0)
[2022-06-20 16:38] LABS: D Dimer High Sensitivity 5295 NG/ML
--- NOTE | 2022-06-20 16:50 | PC.NURSE ---
IR at bedside to complete paracentesis
[2022-06-20 17:04] LABS: Ammonia 170 umol/L (13-55)
[2022-06-20] MEDS: Lidocaine HCl 1 % MPF 5 ML VIAL 10 ML SUBCUT (17:07)
[2022-06-20 17:24] LABS: Reflex Lactate? Lactic Acid Added
[2022-06-20 17:26] LABS: MN% 97.9 %; PMN% 2.1 %; WBC Peritoneal Fluid 0.114 X10*3/uL
[2022-06-20 17:26] LABS: Bacteria Urine None Seen (None Seen); RBC Urine 0-2 /HPF (0-2); Squamous Epithelial Cell Urine 0-2 /HPF (0-2); UACC Culture Trigger YES
--- NOTE | 2022-06-20 17:27 | PC.NURSE ---
abx hung late as US was in room doing paracentesis
[2022-06-20] MEDS: Piperacillin Sodium/Tazobactam 3.375 GM in 0.9 % Sodium Chloride 50 ML IV (17:35)
[2022-06-20] MEDS: 0.9 % Sodium Chloride 1,000 ML 999 ML IV ×2 (17:36→22:23)
[2022-06-20] MEDS: vancomycin HCL 1,500 MG in 0.9 % Sodium Chloride 500 ML 333.33 MG IV (17:37)
--- NOTE | 2022-06-20 17:57 | MHC.EDTECH ---
patient 1800 vitals sign taken ,and repeated lactic acid drawn and send to lab .
[2022-06-20 18:14] LABS: BF Shift QC OK YES; Eosinophils Peritoneal Fl 1 %; Lymphocyte Peritoneal Fl 59 %; Monocytes Peritoneal Fl 33 %; Other Peritioneal Fl 7 %; RBC Peritoneal Fluid < 0.002 X10*6/uL
[2022-06-20] MEDS: Lactulose 320 GM/480 ML SOLUTION 200 GM PR ×2 (18:43→22:29)
--- NOTE | 2022-06-20 19:44 | PM.IMHP ---
History of Present Illness Date of Service: 06/20/22 Chief Complaint: Altered mentation This is a 57-year-old male with pertinent history of alcohol use disorder with alcoholic cirrhosis, history of GI bleeding, hypothyroidism, mood disorder, mixed hyperlipidemia who was brought to the emergency department for evaluation of altered mentation. Patient is obtunded and very drowsy. Unable to provide a history. History is obtained from chart review and ER provider. Patient was sent to by EMS as noted that he was very lethargic and not speaking. Unable to obtain review of systems Review of Systems Review of Systems: Yes Unobtainable due to mental status PMFSH Medical History Asthma Cirrhosis of liver Hx of fall Hx pulmonary embolism Status post abdominal paracentesis Family History Other No family history of coronary artery disease Surgical History Hx of colonoscopy Hx of esophagogastroduodenoscopy Hx of right inguinal hernia repair Social History Household Members: Other Household Members Other:: Mother Housing: House Do you presently have visiting nurse or other home services: No Alcohol intake: current Alcohol intake frequency: 3 or more drinks per day Alcohol type: wine Patient Tobacco Use Status: Never used Tobacco e-Cigarette/Vaping Use: Never Used Second Hand Smoke Exposure: No Substance Use Type: Marijuana Advance Directives: Yes Advance Directives on File: Yes Advance Directives Date on File: 08/09/21 service: No Current occupational status: employed Meds Allergies Allergy/AdvReac Type Severity Reaction Status Date / Time No Known Allergies Allergy Verified 04/16/22 11:58 [No Known Allergies*] Active Medications: Current Medications Lactulose (Lactulose 320 Gm/480 Ml Solution) 200 gm KS Q4H EVONNE Melatonin (Melatonin 3 Mg Tablet) 6 mg PO BEDTIME PRN PRN Reason: Insomnia Ondansetron HCl (Ondansetron Hcl 4 Mg/2 Ml Vial) 4 mg IVPUSH Q8H PRN PRN Reason: Nausea and Vomiting Sodium Chloride (0.9 % Sodium Chloride Flush 3 Ml Syringe) 3 ml IVFLUSH QSHIFT [facility] Home Medications Medication Instructions Recorded Confirmed Last Taken Type albuterol sulfate 90 mcg/actuation 2 puff inhalation Q4-6H PRN 05/26/20 03/05/22 Unknown History aerosol inhaler Shortness Of Breath pantoprazole 40 mg tablet,delayed 40 mg PO DAILY 05/26/20 03/05/22 03/04/22 History release atorvastatin 10 mg tablet 1 tab PO DAILY 07/25/21 03/05/22 03/04/22 History cyanocobalamin (vitamin B-12) 1,000 mcg PO DAILY 07/25/21 03/05/22 03/04/22 History 1,000 mcg tablet magnesium oxide 400 mg (241.3 mg 1 tab PO DAILY 07/25/21 03/05/22 03/04/22 History magnesium) tablet multivitamin 1 tab PO DAILY 07/25/21 03/05/22 03/04/22 History pyridoxine (vitamin B6) 100 mg 100 mg PO DAILY 07/25/21 03/05/22 03/04/22 History tablet thiamine HCl (vitamin B1) 100 mg 100 mg PO DAILY 07/25/21 03/05/22 03/04/22 History tablet escitalopram oxalate 20 mg tablet 20 mg PO DAILY 03/05/22 03/05/22 03/04/22 History folic acid 1 mg tablet 1 mg PO DAILY 03/05/22 03/05/22 03/04/22 History levothyroxine 25 mcg tablet 1 tab PO DAILY 03/05/22 03/05/22 03/04/22 History midodrine 5 mg tablet 5 mg PO DAILY 06/20/22 06/20/22 Unknown History Physical Exam Vital Signs and Narrative: Vital Signs: Last Vital Signs Temp 97.8 F 06/20/22 19:31 Pulse 117 H 06/20/22 19:31 Resp 16 06/20/22 17:52 BP 100/68 06/20/22 19:31 Pulse Ox 97 06/20/22 19:31 O2 Del Method 06/20/22 19:31 BMI result Body Mass Index 23.2 Middle-aged male lying in bed in no distress Neck supple, no JVD Tachycardic with regular rhythm, S1-S2 heard Regular breath sounds bilaterally, no wheezing or crackles appreciated Abdomen soft nontender, no guarding, no rigidity Patient is eye opening to verbal stimulus and falls back to sleep, non conversational Psych: Drowsy No pedal edema Results Labs 06/20/22 15:13 06/20/22 15:13 Labs: Laboratory Results - last 24 hr 06/20/22 06/20/22 06/20/22 15:13 15:13 15:13 MCV 92.3 MCH 31.3 MCHC 34.0 RDW 18.3 H Plt Count 114 L D MPV 10.1 Immature Gran % (Auto) 0.2 Neut % (Auto) 54.0 Lymph % (Auto) 27.8 [place] % (Auto) 15.1 H Eos % (Auto) 2.3 Baso % (Auto) 0.6 Lymph # (Auto) 1.4 [place] # (Auto) 0.7 Eos # (Auto) 0.1 Baso # (Auto) 0.0 Abs Immat Gran (auto) 0.01 Absolute Neuts (auto) 2.6 Absolute Nucleated RBC 0.000 Nucleated RBC % (auto) 0.0 PT 21.1 H INR 1.8 H D-Dimer High Sensitivty 5295 Anion Gap 10 L Estim Creat Clear Calc 44.1 Estimated GFR 34 Random Glucose 129 H Lactic Acid Lactic Acid F/U @ 2Hr Calcium 8.9 Total Bilirubin 7.5 H AST 55 H ALT 24 Alkaline Phosphatase 222 H Ammonia Troponin I High Sens B-Natriuretic Peptide Total Protein 6.7 Albumin 2.8 L Lipase 52 TSH Urine Color Urine Appearance Urine pH Ur Specific [place] Urine Protein Urine Glucose (UA) Urine Ketones Urine Blood Urine Nitrite Ur Leukocyte Esterase Urine RBC Urine WBC Ur Squamous Epith Cells Urine Bacteria Hyaline Casts Peritoneal WBC Peritoneal RBC [place] Lymphocytes Peritoneal Monocytes Peritoneal Eosinophils Peritoneal Other Cells Urine Opiates Screen Urine Fentanyl Screen Ur Barbiturates Screen Ur Phencyclidine Scrn Ur Amphetamines Screen U Benzodiazepines Scrn Urine Cocaine Screen U Marijuana (THC) Screen Ethyl Alcohol COVID-19 (LETICIA) COVID-19 Clin Com 06/20/22 06/20/22 06/20/22 15:13 15:13 15:13 MCV MCH MCHC RDW Plt Count MPV Immature Gran % (Auto) Neut % (Auto) Lymph % (Auto) [place] % (Auto) Eos % (Auto) Baso % (Auto) Lymph # (Auto) [place] # (Auto) Eos # (Auto) Baso # (Auto) Abs Immat Gran (auto) Absolute Neuts (auto) Absolute Nucleated RBC Nucleated RBC % (auto) PT INR D-Dimer High Sensitivty Anion Gap Estim Creat Clear Calc Estimated GFR Random Glucose Lactic Acid 2.5 H* Lactic Acid F/U @ 2Hr Calcium Total Bilirubin AST ALT Alkaline Phosphatase Ammonia Troponin I High Sens 9.8 B-Natriuretic Peptide 77 Total Protein Albumin Lipase TSH Urine Color Urine Appearance Urine pH Ur Specific [place] Urine Protein Urine Glucose (UA) Urine Ketones Urine Blood Urine Nitrite Ur Leukocyte Esterase Urine RBC Urine WBC Ur Squamous Epith Cells Urine Bacteria Hyaline Casts Peritoneal WBC Peritoneal RBC [place] Lymphocytes Peritoneal Monocytes Peritoneal Eosinophils Peritoneal Other Cells Urine Opiates Screen Urine Fentanyl Screen Ur Barbiturates Screen Ur Phencyclidine Scrn Ur Amphetamines Screen U Benzodiazepines Scrn Urine Cocaine Screen U Marijuana (THC) Screen Ethyl Alcohol COVID-19 (LETICIA) COVID-[employer] 06/20/22 06/20/22 06/20/22 15:13 15:13 15:13 MCV MCH MCHC RDW Plt Count MPV Immature Gran % (Auto) Neut % (Auto) Lymph % (Auto) [place] % (Auto) Eos % (Auto) Baso % (Auto) Lymph # (Auto) [place] # (Auto) Eos # (Auto) Baso # (Auto) Abs Immat Gran (auto) Absolute Neuts (auto) Absolute Nucleated RBC Nucleated RBC % (auto) PT INR D-Dimer High Sensitivty Anion Gap Estim Creat Clear Calc Estimated GFR Random Glucose Lactic Acid Lactic Acid F/U @ 2Hr Calcium Total Bilirubin AST ALT Alkaline Phosphatase Ammonia 170 H Troponin I High Sens B-Natriuretic Peptide Total Protein Albumin Lipase TSH 1.79 Urine Color Urine Appearance Urine pH Ur Specific [place] Urine Protein Urine Glucose (UA) Urine Ketones Urine Blood Urine Nitrite Ur Leukocyte Esterase Urine RBC Urine WBC Ur Squamous Epith Cells Urine Bacteria Hyaline Casts Peritoneal WBC Peritoneal RBC [place] Lymphocytes Peritoneal Monocytes Peritoneal Eosinophils Peritoneal Other Cells Urine Opiates Screen Urine Fentanyl Screen Ur Barbiturates Screen Ur Phencyclidine Scrn Ur Amphetamines Screen U Benzodiazepines Scrn Urine Cocaine Screen U Marijuana (THC) Screen Ethyl Alcohol < 10 COVID-19 (LETICIA) Negative COVID-[place] [employer] Com See Note 06/20/22 06/20/22 06/20/22 15:25 15:25 17:01 MCV MCH MCHC RDW Plt Count MPV Immature Gran % (Auto) Neut % (Auto) Lymph % (Auto) [place] % (Auto) Eos % (Auto) Baso % (Auto) Lymph # (Auto) [place] # (Auto) Eos # (Auto) Baso # (Auto) Abs Immat Gran (auto) Absolute Neuts (auto) Absolute Nucleated RBC Nucleated RBC % (auto) PT INR D-Dimer High Sensitivty Anion Gap Estim Creat Clear Calc Estimated GFR Random Glucose Lactic Acid Lactic Acid F/U @ 2Hr Calcium Total Bilirubin AST ALT Alkaline Phosphatase Ammonia Troponin I High Sens B-Natriuretic Peptide Total Protein Albumin Lipase TSH Urine Color Dark Yellow Urine Appearance Clear Urine pH 6.0 Ur Specific [place] 1.020 Urine Protein Negative Urine Glucose (UA) Negative Urine Ketones Trace Urine Blood Negative Urine Nitrite Negative Ur Leukocyte Esterase Trace H Urine RBC 0-2 Urine WBC 6-10 H Ur Squamous Epith Cells 0-2 Urine Bacteria None Seen Hyaline Casts 3-5 Peritoneal WBC 0.114 Peritoneal RBC < 0.002 [place] Lymphocytes 59 Peritoneal Monocytes 33 Peritoneal Eosinophils 1 Peritoneal Other Cells 7 Urine Opiates Screen Not Detected Urine Fentanyl Screen Not Detected Ur Barbiturates Screen Not Detected Ur Phencyclidine Scrn Not Detected Ur Amphetamines Screen Not Detected U Benzodiazepines Scrn Not Detected Urine Cocaine Screen Not Detected U Marijuana (THC) Screen POSITIVE H Ethyl Alcohol COVID-19 (LETICIA) COVID-19 Clin Com 06/20/22 17:57 MCV MCH MCHC RDW Plt Count MPV Immature Gran % (Auto) Neut % (Auto) Lymph % (Auto) [place] % (Auto) Eos % (Auto) Baso % (Auto) Lymph # (Auto) [place] # (Auto) Eos # (Auto) Baso # (Auto) Abs Immat Gran (auto) Absolute Neuts (auto) Absolute Nucleated RBC Nucleated RBC % (auto) PT INR D-Dimer High Sensitivty Anion Gap Estim Creat Clear Calc Estimated GFR Random Glucose Lactic Acid Lactic Acid F/U @ 2Hr 3.0 H* Calcium Total Bilirubin AST ALT Alkaline Phosphatase Ammonia Troponin I High Sens B-Natriuretic Peptide Total Protein Albumin Lipase TSH Urine Color Urine Appearance Urine pH Ur Specific [place] Urine Protein Urine Glucose (UA) Urine Ketones Urine Blood Urine Nitrite Ur Leukocyte Esterase Urine RBC Urine WBC Ur Squamous Epith Cells Urine Bacteria Hyaline Casts Peritoneal WBC Peritoneal RBC [place] Lymphocytes Peritoneal Monocytes Peritoneal Eosinophils Peritoneal Other Cells Urine Opiates Screen Urine Fentanyl Screen Ur Barbiturates Screen Ur Phencyclidine Scrn Ur Amphetamines Screen U Benzodiazepines Scrn Urine Cocaine Screen U Marijuana (THC) Screen Ethyl Alcohol COVID-19 (LETICIA) COVID-19 Clin Com Imaging Radiologist's Impressions: Impressions Chest X-Ray 06/20/22 16:05 IMPRESSION: Cardiomegaly with mild upper zone redistribution and possible small left effusion. Mild CHF could explain this. Paracentesis Ultrasound 06/20/22 17:00 IMPRESSION: Successful diagnostic paracentesis performed in the ED at bedside. Abdomen/Pelvis CT 06/20/22 17:44 IMPRESSION: 1. Moderate volume of abdominal ascites. 2. Cirrhosis of liver. Splenomegaly. 3. Cholelithiasis. No acute change of the gallbladder wall. There is a 5 mm calcification at the mira hepatis which is difficult to localize but suspect this is at the neck of the gallbladder or proximal CBD. 4. Diverticulosis of the colon. No acute change of the bowel. 5. Tobar catheter within the bladder. 6. Left pleural effusion. Small volume of atelectasis at the left lung base. Fleischner guidelines were followed. Head CT 06/20/22 17:44 IMPRESSION: 1. No evidence of acute intracranial hemorrhage or edematous territorial infarction. 2. Chronic basal ganglia lacunar infarcts. 3. Background of chronic microangiopathy with generalized cerebral volume loss. Assessment and Plan (1) Acute hepatic encephalopathy: Status: Acute (2) Acute kidney injury: Status: Acute Plan This is a 57-year-old male with pertinent history of alcohol use disorder with alcoholic cirrhosis, history of GI bleeding, hypothyroidism, mood disorder, mixed hyperlipidemia who was brought to the emergency department for evaluation of altered mentation. #. Acute hepatic encephalopathy grade 3 #. Acute decompensation of alcoholic cirrhosis with ascites and alcoholic hepatitis -patient underwent paracentesis in the ER. Ascitic fluid not consistent with SBP. Unclear precipitant of hepatic encephalopathy. Likely dehydration or ?alcohol use. Will order occult stool to rule out GI bleed. Initiating lactulose KS and repeat ammonia in a.m. -initiating thiamine. #. Chronic normocytic anemia: Resume folic acid once no longer NPO. Rule out GI bleed as above. Does have a history of variceal bleeding #. Hypothyroidism: On Synthroid. Will check TSH #. Mood disorder: Continue home Lexapro #. Thrombocytopenia due to cirrhosis #. Coagulopathy due to liver disease #. Acute kidney injury on chronic kidney disease, likely prerenal. Monitor creatinine and urine output with fluid resuscitation. Avoid nephrotoxins #. Acute lactic acidosis due to liver disease. Not due to sepsis Med rec pending DVT prophylaxis: Mechanical. Hold Lovenox in the setting of coagulopathy Full code NPO until mentation improves Admit as inpatient and will require two night minimum hospital stay for monitoring of mentation and treatment of acute hepatic encephalopathy Time Spent With Patient Time: Total time managing care of this patient today ____ minutes. Quality Stroke Does the patient have a stroke diagnosis?: No VTE Prior VTE?: No VTE Risk Level:: Medical - moderate - high VTE Device Contraindication: N/A - Device Ordered VTE Drug Contraindication: Treatment Not Indicated
--- NOTE | 2022-06-20 19:47 | MHC.EDTECH ---
PATIENT HAD AN INCONTIENCE EPISODE OF WATERY STOOL ,CARE GIVEN ,BEDDING CHANGE .
--- OUTSIDE RECORDS SUMMARY | 2022-06-20 19:49 | XMS_ITS | Continuity of Care Document ---
:1965 Author Organization [facility] Address [address] [place] [address]- Care Team Providers Name Role Phone Fernando Martin MD Primary Care Physician Encounter [facility] Date(s): 05/08/22 - 06/07/[address] [address] Allergies, Adverse Reactions, Alerts No Known Allergies [...] tablet, 5 Refills, Maintenance, 01/29/22 11:05:00 EDT, [facility] #[id number], 183, cm, 01/17/22 9:17:00 EDT, Height Start Date: 01/29/22 Status: Orderedescitalopram 20 mg oral tablet 1 tablet = 20 mg, By Mouth, Daily, # 30 tablet, 11 Refills, Maintenance, 01/17/22 9:39:00 EDT, Tablet, [facility] #[id number], Partial fill upon patient request if the prescription is for a schedule II opioid drug., 183, cm, 01/17/22 9:17:00 EDT,... Start Date: 01/17/22 Stop Date: 01/12/23 Status: Orderedfolic acid 1 mg oral tablet 1 mg, 1, tablet, By Mouth, Daily, # 30 tablet, Refills 5, Tot. Refills 5, Maintenance, 05/11/22 9:41:00 EST, Route to Pharmacy Electronically, [facility] #[id number], 183, cm, 04/03/22 10:51:00 EST, Height Start Date: 05/11/22 Stop Date: 11/07/22 Status: OrderedK-Tab 20 mEq oral tablet, extended release 1 tablet = 20 mEq, By Mouth, Daily, # 30 tablet, 11 Refills, Maintenance, 04/03/22 11:09:00 EST, [facility] #[id number], Partial fill upon patient request if the [...] By Mouth, Daily, # 30 tablet, Refills 2, Tot. Refills 2, Maintenance, 05/08/22 10:26:00 EST, Route to Pharmacy Electronically, [facility] #[id number], Partial fill upon patient request if the prescription is for a schedule II op... Start Date: 05/08/22 Status: OrderedLevoxyl 0.025 mg oral tablet 1 tablet = 25 mcg, By Mouth, Daily, # 30 tablet, 11 Refills, Maintenance, 01/17/22 9:40:00 EDT, Tablet, [facility] #[id number], Partial fill upon patient request if the prescription is for a schedule II opioid drug., 183, cm, 01/17/22 9:17:00 EDT... Start Date: 01/17/22 Status: Orderedmagnesium oxide 400 mg oral tablet 1 tablet = 400 mg, By Mouth, Daily, for 30 days, APPOINTMENT NEEDED FOR FURTHER REFILLS, # 30 tablet, 2 Refills, Acute 08/29/22 12:08:00 EDT, 05/31/22 12:08:00 EST, [facility] #[id number], Partialfill upon patient request if the prescription is... Start Date: 05/31/22 Stop Date: 08/29/22 Status: Orderedmidodrine 5 mg oral tablet 5 mg, 1, tablet, By Mouth, Daily, # 30 tablet, Refills 1, Tot. Refills 1, Maintenance, 05/31/22 10:58:00 EST, Route to Pharmacy Electronically, [facility] #[id number], Partial fill upon patient request if the prescription is for a schedule II opi... Start Date: 05/31/22 Status: OrderedMultivitamin Daily, 0 Refills, Maintenance, 05/03/20 10:49:00 EST, Partial fill upon patient request if the prescription is for a schedule II opioid drug. Start Date: 05/03/20 Status: Orderedpantoprazole 40 mg oral delayed release tablet 1 tablet = 40 mg, By Mouth, Daily, # 30 tablet, 11 Refills, Maintenance, 05/18/22 10:27:00 EST, EC Tablet, 181, cm, 05/18/22 9:55:00 EST, Height Start Date: 05/18/22 Status: OrderedProAir HFA 90 mcg/inh inhalation aerosol with adapter 2, puffs, Inhalation, 4 times a day, # 8.5 Gm, Refills 11, Tot. Refills 11, 01/17/22 9:33:00 EDT, Route to Pharmacy Electronically, [id number], [facility] #[id number], 183, cm, 01/17/22 9:17:00 EDT, Height Start Date: 01/17/22 Status: OrderedVentolin HFA 108 mcg/inh inhalation aerosol with adapter 2 puffs, Inhalation, Every 4 hours, # 8.5 Gm, 11 Refills, Maintenance, 03/30/22 12:03:00 EST, [facility] #[id number], Partial fill upon patient request if the prescription is for a schedule II opioid drug., 183, cm, 01/17/22 9:17:00 EDT, Height Start Date: 03/30/22 Status: Orderedvitamin A 8000 u oral capsule 1 capsule = 8,000 units, By Mouth, Daily, # 100 capsule, 11 Refills, Maintenance, 01/03/22 13:40:00 EDT, [facility] #[id number], Partial fill upon patient request if the prescription is for a schedule II opioid drug., 183, cm, 11/02/21 10:11:00 E... Start Date: 01/03/22 Status: OrderedVitamin B12 1000 mcg oral tablet 1 tablet = 1,000 mcg, By Mouth, Daily, # 30 tablet, 11 Refills, Maintenance, 04/25/21 15:06:00 EST, Tablet, [facility] #[id number], 183, cm, 04/25/21 15:05:00 EST, Height, 77.5, [...] 04/03/22 11:15:00 EST, Route to Pharmacy Electronically, [facility] #[id number], Partial fill upon patient request if the [...] Confirmed Active Vertigo Confirmed 02/15/11 Active 1colo 50748qhcb 13812uot 2000 negative [id number]; repeat 27011sanz 47992ttep 2017 Social History Social History Type Response Smoking Status Never smoker entered on: 09/28/15 Sex Male Implantable Device List Procedure Provider Procedure Date Device Type Site Repair Hernia Inguinal Kunster DO, Cyndi O 07/15/19 Unknown Groin Right Open Device Serial Lot or Manufacturing Expiration Distinct MRI Implan table Assigning Identifier Number Batch Date Date Identification Safety Status Authority Number Code Unknown Unknown [id number] Unknown 09/16/22 Unknown Unknown Active Unknown 2 Patient Care team information Care Team PersonnelName: Veronica DENIS, Fernando Kwok Position: [facility] Primary Care Physician Member Role: PCP Address: Address: [address] [place] [address]- Name: Leoncio Bowers RN Position: [facility] RN Member Role: Primary Care Nurse Care Team Related PersonsName: MINDY MEIER Address: home [address] [place] [address] Name: LEONCIO CHI Address: home [facility]
--- OUTSIDE RECORDS SUMMARY | 2022-06-20 19:49 | XMS_ITS | Continuity of Care Document ---
:1965 Author Organization [facility] Address [address] [place] [address]- Care Team Providers Name Role Phone Veronica DENIS, Fernando Kwok Primary Care Physician [place] [facility] [place]s): 12/25/19 - 01/24/20 [facility] [address] [place] [address] [facility] Allergies, Adverse Reactions, Alerts Substance [...] 08/20/19 8:46:00 EDT, Route to Pharmacy Electronically, [id number], [facility] #[id number], 183, cm, 07/24/19 10:31:00 EST, Height... Start [...] 11/10/19 10:53:00 EDT, Route to Pharmacy Electronically, [facility], 183, cm, 11/10/19 9:27:00 [...] tablet, 0 Refills, Maintenance, 12/01/19 7:32:00 EDT, [email or web address] #[id number], 183, cm, 12/01/19 7:19:00 EDT, Height, 77.5, kg, 11/08/19 18:47:00 EDT, Dry Weight Start Date: 12/01/19 Status: OrderedProAir HFA 90 mcg/inh inhalation aerosol with adapter 2, puffs, Inhalation, 4 times a day, for 30 days, # 1 each, Refills 11, Tot. Refills 11, Hard Stop 08/14/20 8:46:00 EDT, 08/20/19 8:46:00 EDT, Route to Pharmacy Electronically, [id number], [email or web address] #[id number], 183, cm... Start Date: 08/20/19 Stop Date: 08/14/20 Status: Orderedpyridoxine 100 mg oral tablet 1 tablet = 100 mg, By Mouth, Daily, # 30 tablet, 0 Refills, Maintenance, 11/10/19 10:52:00 EDT, Tablet, [facility], 183, cm, 11/10/19 9:27:00 EDT, Height, 77.5, kg, 11/08/19 18:47:00 EDT,Dry Weight Start Date: 11/10/19 Status: Orderedsertraline 100 mg oral tablet 1 tablet = 100 mg, By Mouth, Daily, # 30 tablet, 11 Refills, Maintenance, 08/20/19 8:45:00 EDT, Tablet, [email or web address] #[id number], 183, cm, 07/24/19 10:31:00 EST, Height, 78.5, kg, 07/15/19 6:56:00 EST, Dry Weight Start Date: 08/20/19 Status: Orderedthiamine 100 mg oral tablet 100 mg, 1, tablet, By Mouth, Daily, # 30 tablet, Refills 0, Tot. Refills 0, Maintenance, 11/10/19 10:52:00 EDT, Route to Pharmacy Electronically, [facility], 183, cm, 11/10/19 9:27:00 EDT, Height, 77.5, kg, 11/08/19 18:47:00 EDT, Dry Weight Start Date: 11/10/19 Status: OrderedVitamin B12 1000 mcg oral tablet 1 tablet = 1,000 mcg, By Mouth, Daily, # 30 tablet, 11 Refills, Maintenance, 08/20/19 8:46:00 EDT, Tablet, [email or web address] #[id number], 183, cm, 07/24/19 10:31:00 EST, Height, 78.5, [...] Polyp of rectum(Confirmed)4 Active Syncope(Confirmed) Active 1colo 90884jit 2000 negative [id number]; repeat 2017 Social History Social History Type Response Smoking Status Never smoker entered on: 09/28/15 Sex Male Medical Equipment Implanted Date:07/15/19 Target Site:Groin Right Description Quantity MRI Company Model PATCH HERNIA PROLENE MEDIUM - [facility] 1 [employer] n/j&j Wound Closure Unknown (ETPHSM6) FORTINO: No Information Assigning Authority: FDA
--- OUTSIDE RECORDS SUMMARY | 2022-06-20 19:49 | XMS_ITS | Continuity of Care Document ---
:1965 Author Organization [facility] Address [address] [place] [address]- Care Team Providers Name Role Phone Veronica DENIS, Fernando Kwok Primary Care Physician Encounter [facility] Date(s): 07/29/20 - 08/05/20 [facility] [address] [place] [address]- Encounter Diagnosis Alcoholic liver failure (Discharge Diagnosis) - 07/29/20 Ascites (Discharge Diagnosis) - 07/29/20 B12 deficiency (Discharge Diagnosis) - 07/29/20 Depression (Discharge Diagnosis) - 07/29/20 Attending Physician: Fernando Martin MD Allergies, Adverse Reactions, Alerts Substance Reaction Severity Status NKA Active Immunizations Given and Recorded Vaccine Date Status Refusal Reason SARS-CoV-2 (COVID-19) mRNA BNT-162b2 vac 07/30/20 Given [...] 05/03/20 10:47:00 EST, Route to Pharmacy Electronically, [facility] #[id number], 183, cm, 05/03/20 10:28:00EST, Height, 77.5, kg, 11/08/19 18:47:00 EDT, Dry... Start Date: 05/03/20 Stop Date: 04/28/21 Status: Orderedlactulose 10 gm/15 ml oral syrup 30 mL = 20 Gm, By Mouth, 3 times a day, # 480 mL, 11 Refills, Maintenance, 05/03/20 11:06:00 EST, Syrup, [facility] #[id number], Partial fill upon patient request if the prescription is for a schedule II opioid drug., 30 mL By Mouth 3 times a day... Start Date: 05/03/20 Status: OrderedLasix 40 mg oral tablet 40 mg, 1, tablet, By Mouth, Daily, # 30 tablet, Refills 11, Tot. Refills 11, Maintenance, 05/03/20 10:48:00 EST, Route to Pharmacy Electronically, [facility] #82561, Partial fill upon patientrequest if the prescription is for a schedule II... Start Date: 05/03/20 Status: OrderedLexapro 10 mg oral tablet 1 tablet = 10 mg, By Mouth, Daily, # 30 tablet, 11 Refills, Maintenance, 06/24/20 11:21:00 EST, Tablet, [facility] #55286, Partial fill upon patient request if the prescription is for a schedule II opioid drug., 183, cm, 06/24/20 11:05:00 ES... Start Date: 06/24/20 Stop Date: 06/19/21 Status: Orderedmagnesium oxide 400 mg oral tablet 1 tablet = 400 mg, By Mouth, Daily, for 30 days, # 30 tablet, 11 Refills, Acute 04/28/21 10:49:00 EST, 05/03/20 10:49:00 EST, Tablet, [facility] #17779, Partial fill upon patient request if the [...] 08/20/19 8:46:00 EDT, Route to Pharmacy Electronically, [id number], [facility] #[id number], 183, cm... Start Date: 08/20/19 Stop Date: 08/14/20 Status: Orderedspironolactone 100 mg oral tablet 100 mg, 1, tablet, By Mouth, Daily, # 30 tablet, Refills 11, Tot. Refills 11, Maintenance, 05/03/20 10:48:00 EST, Route to Pharmacy Electronically, [facility] #48296, Partial fill upon patient request if the prescription is for a schedule II... Start Date: 05/03/20 Status: OrderedVitamin B12 1000 mcg oral tablet 1 tablet = 1,000 mcg, By Mouth, Daily, # 30 tablet, 11 Refills, Maintenance, 05/03/20 10:47:00 EST, Tablet, [facility] #[id number], 183, cm, 05/03/20 10:28:00 EST, Height, 77.5, [...] Polyp of rectum(Confirmed)6 Active Syncope(Confirmed) Active 1colo 68537mbbt 35076hro 2001 negative [id number]; repeat 27151rytf [id number] 2018 Diagnosis Diagnosis Type Effective Dates Health Clinical Infor mant Status Service Alcoholic liver Discharge 07/29/20 failure Diagnosis Ascites Discharge 07/29/20 Diagnosis B12 deficiency Discharge 07/29/20 Diagnosis Depression Discharge 07/29/20 Diagnosis Vital Signs Most recent to oldest [Reference Range]: 1 Height 183 cm (07/29/20 1:57 PM) Weight 84.2 kg (07/29/20 1:57 PM) Oxygen Saturation [94-100 %] 98 % (07/29/20 1:57 PM) Pulse Rate [55-90 bpm] 75 bpm (07/29/20 1:57 PM) Body Mass Index [18.5-24.99] 25.14 *H* (07/29/20 1:57 PM) Blood Pressure [90-138/55-84 mm Hg] 104/58 mm Hg (07/29/20 1:57 PM) Mode of Delivery (Oxygen) Room air (07/29/20 1:57 PM) Blood pressure sites Arm, left (07/29/20 1:57 PM) Weight Obtained Via Standing scale (07/29/20 1:57 PM) Social History Social History Type Response Smoking Status Never smoker entered on: 09/28/15 Sex Male Medical Equipment Implanted Date:07/15/19 Target Site:Groin Right Description Quantity MRI Company Model PATCH HERNIA PROLENE MEDIUM - [facility] 1 [employer] n/j&j Wound Closure Unknown (ETPHSM6) FORTINO: No Information Assigning Authority: FDA
--- OUTSIDE RECORDS SUMMARY | 2022-06-20 19:49 | XMS_ITS | Continuity of Care Document ---
:1965 Author Organization [facility] Address [address] [place] [address]- Care Team Providers Name Role Phone Fernando Martin MD Primary Care Physician Encounter [facility] Date(s): 11/14/20 - 12/14/20 [facility] [address] [place] [address]- Attending Physician: Admtr, Ar8 Allergies, Adverse Reactions, Alerts Substance Reaction Severity [...] 05/03/20 10:47:00 EST, Route to Pharmacy Electronically, [facility] #[id number], 183, cm, 05/03/20 10:28:00EST, Height, 77.5, kg, 11/08/19 18:47:00 EDT, Dry... Start Date: 05/03/20 Stop Date: 04/28/21 Status: Orderedlactulose 10 gm/15 ml oral syrup 30 mL = 20 Gm, By Mouth, 3 times a day, # 480 mL, 11 Refills, Maintenance, 05/03/20 11:06:00 EST, Syrup, [facility] #[id number], Partial fill upon patient request if the prescription is for a schedule II opioid drug., 30 mL By Mouth 3 times a day... Start Date: 05/03/20 Status: OrderedLasix 40 mg oral tablet 40 mg, 1, tablet, By Mouth, Daily, # 30 tablet, Refills 11, Tot. Refills 11, Maintenance, 05/03/20 10:48:00 EST, Route to Pharmacy Electronically, [facility] #[id number], Partial fill upon patientrequest if the prescription is for a schedule II... Start Date: 05/03/20 Status: OrderedLexapro 10 mg oral tablet 1 tablet = 10 mg, By Mouth, Daily, # 30 tablet, 11 Refills, Maintenance, 06/24/20 11:21:00 EST, Tablet, [facility] #[id number], Partial fill upon patient request if the prescription is for a schedule II opioid drug., 183, cm, 06/24/20 11:05:00 ES... Start Date: 06/24/20 Stop Date: 06/19/21 Status: Orderedmagnesium oxide 400 mg oral tablet 1 tablet = 400 mg, By Mouth, Daily, for 30 days, # 30 tablet, 11 Refills, Acute 04/28/21 10:49:00 EST, 05/03/20 10:49:00 EST, Tablet, [facility] #[id number], Partial fill upon patient request if the [...] 05/03/20 10:48:00 EST, Route to Pharmacy Electronically, [facility] #[id number], Partial fill upon patient request if the prescription is for a schedule II... Start Date: 05/03/20 Status: OrderedVitamin B12 1000 mcg oral tablet 1 tablet = 1,000 mcg, By Mouth, Daily, # 30 tablet, 11 Refills, Maintenance, 05/03/20 10:47:00 EST, Tablet, [facility] #50297, 183, cm, 05/03/20 10:28:00 EST, Height, 77.5, [...] Polyp of rectum(Confirmed)6 Active Syncope(Confirmed) Active 1colo 38512vcha 39384osk 2001 negative [id number]; repeat 91965vmsd 87197recx 2018 Procedures Procedure Date Related Diagnosis Body Site Status Upper gastrointestinal endoscopy 05/31/20 Completed Social History Social History Type Response Smoking Status Never smoker entered on: 09/28/15 Sex Male Medical Equipment Implanted Date:07/15/19 Target Site:Groin Right Description Quantity MRI Company Model PATCH HERNIA PROLENE MEDIUM - [facility] 1 [employer] n/j&j Wound Closure Unknown (ETPHSM6) FORTINO: No Information Assigning Authority: FDA
--- OUTSIDE RECORDS SUMMARY | 2022-06-20 19:49 | XMS_ITS | Continuity of Care Document ---
:1965 Author Organization [facility] Address [address] [place] [address]- Care Team Providers Name Role Phone Fernando Martin MD Primary Care Physician Encounter [facility] Date(s): 05/22/19 - 09/19/19 [facility] [address] [place] [address]- [facility] Attending Physician: Fernando Martin MD Allergies, Adverse [...] 08/20/19 8:46:00 EDT, Route to Pharmacy Electronically, [id number], [facility] #[id number], 183, cm, 07/24/19 10:31:00 EST, Height... Start Date: 08/20/19 Stop Date: 08/14/20 Status: OrderedEliquis 2.5 mg oral tablet 1 tablet = 2.5 mg, By Mouth, 2 times a day, # 60 tablet, 11 Refills, Maintenance, 08/20/19 8:40:00 EDT, Tablet, [facility] #45587, 183, cm, 07/24/19 10:31:00 EST, Height, 78.5, kg, 07/15/19 6:56:00 EST, Dry Weight Start Date: 08/20/19 Status: OrderedNasacort 0 Refills, Maintenance, 09/28/15 8:56:41 [...] 08/20/19 8:46:00 EDT, Route to Pharmacy Electronically, [id number], [facility] #[id number], 183, cm... Start Date: 08/20/19 Stop Date: 08/14/20 Status: Orderedsertraline 100 mg oral tablet 1 tablet = 100 mg, By Mouth, Daily, # 30 tablet, 11 Refills, Maintenance, 08/20/19 8:45:00 EDT, Tablet, [facility] #99210, 183, cm, 07/24/19 10:31:00 EST, Height, 78.5, kg, 07/15/19 6:56:00 EST, Dry Weight Start Date: 08/20/19 Status: OrderedVitamin B12 1000 mcg oral tablet 1 tablet = 1,000 mcg, By Mouth, Daily, # 30 tablet, 11 Refills, Maintenance, 08/20/19 8:46:00 EDT, Tablet, [facility] #50176, 183, cm, 07/24/19 10:31:00 EST, Height, 78.5, [...] Polyp of rectum(Confirmed)4 Active Syncope(Confirmed) Active 1colo 50791vup 2000 negative [id number]; repeat 57541busu 2017 Social History Social History Type Response Smoking Status Never smoker entered on: 09/28/15 Sex Male Medical Equipment Implanted Date:07/15/19 Target Site:Groin Right Description Quantity MRI Company Model PATCH HERNIA PROLENE MEDIUM - [facility] 1 [employer] n/j&j Wound Closure Unknown (ETPHSM6) FORTINO: No Information Assigning Authority: FDA
--- OUTSIDE RECORDS SUMMARY | 2022-06-20 19:49 | XMS_ITS | Continuity of Care Document ---
:1965 Author Organization [facility], [place], operated [facility] Address [address] [place] [address]- Care Team Providers Name Role Phone Fernando Martin MD Primary Care Physician Encounter [facility] [place] Date(s): 05/18/22 - 05/25/22 [facility], [place], [facility] [address] [place] [address]- Encounter Diagnosis Asthma (Discharge Diagnosis) - 05/18/22 Hyperlipidemia (Discharge Diagnosis) - 05/18/22 Hypertension (Discharge Diagnosis) - 05/18/22 Prothrombin mutation (Discharge Diagnosis) - 05/18/22 Alcoholic liver failure (Discharge Diagnosis) - 05/18/22 Annual visit for general adult medical examination with abnormal findings (Discharge Diagnosis) - 05/18/22 Ascites (Discharge Diagnosis) - 05/18/22 Attending Physician: Not on Staff, Attending MD Allergies, Adverse Reactions, Alerts No Known Allergies [...] tablet, 5 Refills, Maintenance, 01/29/22 11:05:00 EDT, [facility] #[id number], 183, cm, 01/17/22 9:17:00 EDT, Height Start Date: 01/29/22 Status: Orderedescitalopram 20 mg oral tablet 1 tablet = 20 mg, By Mouth, Daily, # 30 tablet, 11 Refills, Maintenance, 01/17/22 9:39:00 EDT, Tablet, [facility] #[id number], Partial fill upon patient request if the prescription is for a schedule II opioid drug., 183, cm, 01/17/22 9:17:00 EDT,... Start Date: 01/17/22 Stop Date: 01/12/23 Status: Orderedfolic acid 1 mg oral tablet 1 mg, 1, tablet, By Mouth, Daily, # 30 tablet, Refills 5, Tot. Refills 5, Maintenance, 05/11/22 9:41:00 EST, Route to Pharmacy Electronically, [facility] #[id number], 183, cm, 04/03/22 10:51:00 EST, Height Start Date: 05/11/22 Stop Date: 11/07/22 Status: OrderedK-Tab 20 mEq oral tablet, extended release 1 tablet = 20 mEq, By Mouth, Daily, # 30 tablet, 11 Refills, Maintenance, 04/03/22 11:09:00 EST, [facility] #[id number], Partial fill upon patient request if the [...] 05/08/22 10:26:00 EST, Route to Pharmacy Electronically, [facility] #[id number], Partial fill upon patient request if the prescription is for a schedule II op... Start Date: 05/08/22 Status: OrderedLevoxyl 0.025 mg oral tablet 1 tablet = 25 mcg, By Mouth, Daily, # 30 tablet, 11 Refills, Maintenance, 01/17/22 9:40:00 EDT, Tablet, [facility] #[id number], Partial fill upon patient request if the prescription is for a schedule II opioid drug., 183, cm, 01/17/22 9:17:00 EDT... Start Date: 01/17/22 Status: Orderedmidodrine 5 mg oral tablet 5 mg, 1, tablet, By Mouth, Daily, # 30 tablet, Refills 0, Tot. Refills 0, Maintenance, 05/08/22 15:51:00 EST, Route to Pharmacy Electronically, [facility] #[id number], Partial fill upon patient request if the prescription is for a schedule II opi... Start Date: 05/08/22 Status: OrderedMultivitamin Daily, 0 Refills, Maintenance, 05/03/20 [...] 01/17/22 9:33:00 EDT, Route to Pharmacy Electronically, [id number], [facility] #[id number], 183, cm, 01/17/22 9:17:00 EDT, Height Start Date: 01/17/22 Status: OrderedVentolin HFA 108 mcg/inh inhalation aerosol with adapter 2 puffs, Inhalation, Every 4 hours, # 8.5 Gm, 11 Refills, Maintenance, 03/30/22 12:03:00 EST, [facility] #[id number], Partial fill upon patient request if the prescription is for a schedule II opioid drug., 183, cm, 01/17/22 9:17:00 EDT, Height Start Date: 03/30/22 Status: Orderedvitamin A 8000 u oral capsule 1 capsule = 8,000 units, By Mouth, Daily, # 100 capsule, 11 Refills, Maintenance, 01/03/22 13:40:00 EDT, [facility] #[id number], Partial fill upon patient request if the prescription is for a schedule II opioid drug., 183, cm, 11/02/21 10:11:00 E... Start Date: 01/03/22 Status: OrderedVitamin B12 1000 mcg oral tablet 1 tablet = 1,000 mcg, By Mouth, Daily, # 30 tablet, 11 Refills, Maintenance, 04/25/21 15:06:00 EST, Tablet, [facility] #[id number], 183, cm, 04/25/21 15:05:00 EST, Height, 77.5, [...] 04/03/22 11:15:00 EST, Route to Pharmacy Electronically, [facility] #[id number], Partial fill upon patient request if the [...] Confirmed Active Vertigo Confirmed 02/15/11 Active 1colo 14633vfvl 13098bfk 2000 negative [id number]; repeat 21098lkgp 75850hxfl 2017 Diagnosis Diagnosis Type Effective Dates Health Clinical Infor mant Status Service Annual visit for Discharge 05/18/22 general adult Diagnosis medical examination with abnormal findings Ascites Discharge 05/18/22 Diagnosis Asthma Discharge 05/18/22 Diagnosis Hyperlipidemia Discharge 05/18/22 Diagnosis Hypertension Discharge 05/18/22 Diagnosis Prothrombin mutation Discharge 05/18/22 Diagnosis Alcoholic liver Discharge 05/18/22 failure Diagnosis Vital Signs Most recent to oldest [Reference Range]: 1 Height 181 cm (05/18/22 9:55 AM) Weight 82.0 kg (05/18/22 9:55 AM) Oxygen Saturation [94-100 %] 96 % (05/18/22 9:55 AM) Pulse Rate [55-90 bpm] 82 bpm (05/18/22 9:55 AM) Body Mass Index [18.5-24.99 kg/m2] 25.03 kg/m2 *H* (05/18/22 9:55 AM) Blood Pressure [90-138/55-84 mm Hg] 106/58 mm Hg (05/18/22 9:55 AM) Respiratory Rate [16-30 br/min] 20 br/min (05/18/22 9:55 AM) Temperature [96.8-100.4 DegF] 97.8 DegF (05/18/22 9:55 AM) Mode of Delivery (Oxygen) Room air (05/18/22 9:55 AM) Blood pressure sites Arm, right (05/18/22 9:55 AM) Temperature Route Oral (05/18/22 9:55 AM) Weight Obtained Via Standing scale (05/18/22 9:55 AM) Social History Social History Type Response Smoking Status Never smoker entered on: 09/28/15 Sex Male Implantable Device List Procedure Provider Procedure Date Device Type Site Repair Hernia Inguinal Cyndi Resendez DO 07/15/19 Unknown Groin Right Open Device Serial Lot or Manufacturing Expiration Distinct MRI Implan table Assigning Identifier Number Batch Date Date Identification Safety Status Authority Number Code Unknown Unknown [id number] Unknown 09/16/22 Unknown Unknown Active Unknown 2 Note Lashanda Landa: PERFORM, SIGN, VERIFY Event Display: Patient Education/Instruction Authored Date: [id number] [facility] *BMP So Jonathan Portillo Clinical Summary Name [facility] Age 57 Years 1965 PCP Veronica DENIS, Fernando Kwok PCP Visit Date 05/18/2022 09:52:00 Additional Instructions: Scheduled Appointments?? Future Appointments ?No Future Appointments Scheduled Follow-Up Instructions ?? Diagnosis Unspecified asthma, uncomplicated; Alcoholic hepatic failure without coma; Encounter for general adult medical examination with abnormal findings; Other ascites; Hyperlipidemia, unspecified; Essential (primary) hypertension; Prothrombin gene mutation Medications: Please continue your medications until treatment is completed or stopped by your provider. Discuss any questions related to medications with your provider. New Medications [facility] #[id number], [address], [place] [id number], [phone] Pantoprazole (pantoprazole 40 mg oral delayed release tablet) 1 tab(s) Oral Daily. Refills: 11. Next Dose: Medications to Continue with No Changes These medications were not printed or sent to your pharmacy Albuterol (ProAir HFA 90 mcg/inh inhalation aerosol with adapter) 2 puff(s) Inhalation 4 times a day. Refills: 11. Next Dose: Albuterol (Ventolin HFA 108 mcg/inh inhalation aerosol with adapter) 2 puff(s) Inhalation every 4 hours. Refills: 11. Next Dose: Atorvastatin (atorvastatin 10 mg oral tablet) 1 tab(s) Oral Daily. Refills: 5. Next Dose: Cyanocobalamin (Vitamin B12 1000 mcg oral tablet) 1 tab(s) Oral Daily. Refills: 11. Next Dose: Escitalopram (escitalopram 20 mg oral tablet) 1 tab(s) Oral Daily for 30 Days. Refills: 11. Next Dose: Folic Acid (folic acid 1 mg oral tablet) 1 tab(s) Oral Daily for 30 Days. Refills: 5. Next Dose: Furosemide (Lasix 40 mg oral tablet) 1 tab(s) Oral Daily. Refills: 2. Next Dose: Lactulose (lactulose 20 gm oral powder for reconstitution) 1 pack/packet Oral twice a day. Next Dose: Levothyroxine (Levoxyl 0.025 mg oral tablet) 1 tab(s) Oral Daily. Refills: 11. Next Dose: Midodrine (midodrine 5 mg oral tablet) 1 tab(s) Oral Daily. Refills: 0. Next Dose: Multivitamin Daily. Next Dose: Potassium Chloride (K-Tab 20 mEq oral tablet, extended release) 1 tab(s) Oral Daily. Refills: 11. Next Dose: Rifaximin (Xifaxan 550 mg oral tablet) 1 tab(s) Oral twice a day. Next Dose: Vitamin A (vitamin A 8000 u oral capsule) 1 capsule Oral Daily. Refills: 11. Next Dose: Zinc Sulfate (zinc sulfate 220 mg oral capsule) 1 capsule Oral Daily. Refills: 11. Next Dose: Allergy Info:?? NKA Medications Given This Visit Future Orders ?No future orders Vital Signs Height 181 cm Weight 82.0 kg BMI 25.03 kg/m2 Blood Pressure 106 mm Hg/58 mm Hg Temperature 97.8 DegF Pulse Rate 82 bpm Respiratory Rate 20 br/min 02 Sat Mode of Delivery 96 %/Room air You can now view a summary of your hospital visit from the comfort of your home through a free online portal called [facility]. [facility] is a website that allows you to securely view yourmedical information including discharge summary, medications and follow-up visits. ??You can also send a secure electronic message to your doctor???s office to request appointments, renew medications or just ask a question. You can enroll at [email or web address] or register during your next office visit. Disclaimer:?? The information provided is of a general nature and is intended to be used in conjunction with the recommendations and advice of your health care practitioner. ??Every effort has been made to ensure that the information provided is accurate and complete at the time it is provided to you however, as your needs change, or, as new ??information becomes available, different or additional instructions may be required. If you have questions, please consult with your primary care provider or pharmacist, as appropriate.??This information is not intended to serve as substitution for assessment and evaluation by a qualified health care provider. If you do not have a primary care provider, you may find a [facility] provider by calling [facility] at [phone]. For information about the plan of care including goals and instructions for your diagnosis, please see the patient education orders section of this document. Patient Education Materials?? The content of this educational material or handout may have been modified, supplemented, or adaptedfrom its original content and format to support your individualized medical care. Patient Care team information Care Team PersonnelName: Veronica DENIS, Fernando Kwok Position: [facility] Primary Care Physician Member Role: PCP Address: Address: [address] [place] [id number] Name: Leoncio Bowers RN Position: [facility] RN Member Role: Primary Care Nurse Care Team Related PersonsName: MINDY MEIER Address: [address] [address] Name: LEONCIO [facility] Address: home [facility]
--- OUTSIDE RECORDS SUMMARY | 2022-06-20 19:49 | XMS_ITS | Continuity of Care Document ---
:1965 Author Organization [facility] Address [address] [place] [address]- Care Team Providers Name Role Phone Fernando Martin MD Primary Care Physician [place] [facility] [place](s): 11/28/19 - 03/27/20 [facility] [address] [place] [address]- Attending Physician: Fernando Martin MD Allergies, Adverse [...] 08/20/19 8:46:00 EDT, Route to Pharmacy Electronically, [id number], [facility] #[id number], 183, cm, 07/24/19 10:31:00 EST, Height... Start [...] 11/10/19 10:53:00 EDT, Route to Pharmacy Electronically, [facility], 183, cm, 11/10/19 9:27:00 [...] tablet, 0 Refills, Maintenance, 12/01/19 7:32:00 EDT, [facility] #[id number], 183, cm, 12/01/19 7:19:00 EDT, Height, 77.5, kg, 11/08/19 18:47:00 EDT, Dry Weight Start Date: 12/01/19 Status: OrderedProAir HFA 90 mcg/inh inhalation aerosol with adapter 2, puffs, Inhalation, 4 times a day, for 30 days, # 1 each, Refills 11, Tot. Refills 11, Hard Stop 08/14/20 8:46:00 EDT, 08/20/19 8:46:00 EDT, Route to Pharmacy Electronically, [id number], [facility] #[id number], 183, cm... Start Date: 08/20/19 Stop Date: 08/14/20 Status: Orderedpyridoxine 100 mg oral tablet 1 tablet = 100 mg, By Mouth, Daily, # 30 tablet, 0 Refills, Maintenance, 11/10/19 10:52:00 EDT, Tablet, [facility], 183, cm, 11/10/19 9:27:00 EDT, Height, 77.5, kg, 11/08/19 18:47:00 EDT,Dry Weight Start Date: 11/10/19 Status: Orderedsertraline 100 mg oral tablet 1 tablet = 100 mg, By Mouth, Daily, # 30 tablet, 11 Refills, Maintenance, 08/20/19 8:45:00 EDT, Tablet, [facility] #[id number], 183, cm, 07/24/19 10:31:00 EST, Height, 78.5, kg, 07/15/19 6:56:00 EST, Dry Weight Start Date: 08/20/19 Status: Orderedthiamine 100 mg oral tablet 100 mg, 1, tablet, By Mouth, Daily, # 30 tablet, Refills 0, Tot. Refills 0, Maintenance, 11/10/19 10:52:00 EDT, Route to Pharmacy Electronically, [facility], 183, cm, 11/10/19 9:27:00 EDT, Height, 77.5, kg, 11/08/19 18:47:00 EDT, Dry Weight Start Date: 11/10/19 Status: OrderedVitamin B12 1000 mcg oral tablet 1 tablet = 1,000 mcg, By Mouth, Daily, # 30 tablet, 11 Refills, Maintenance, 08/20/19 8:46:00 EDT, Tablet, [facility] #[id number], 183, cm, 07/24/19 10:31:00 EST, Height, 78.5, [...] Polyp of rectum(Confirmed)4 Active Syncope(Confirmed) Active 1colo 14544bzz 2001 negative [id number]; repeat 20949zavz 2017 Social History Social History Type Response Smoking Status Never smoker entered on: 09/28/15 Sex Male Medical Equipment Implanted Date:07/15/19 Target Site:Groin Right Description Quantity MRI Company Model PATCH HERNIA PROLENE MEDIUM - ETHC 1 [employer]ico n/j&j Wound Closure Unknown (ETPHSM6) FORTINO: No Information Assigning Authority: FDA
--- OUTSIDE RECORDS SUMMARY | 2022-06-20 19:49 | XMS_ITS | Continuity of Care Document ---
:1965 Author Organization [facility] Address [address] [place] [address]- Care Team Providers Name Role Phone Fernando Martin MD Primary Care Physician Encounter [facility] [place] Date(s): 01/17/22 - 04/25/22 [facility] [address] [place] [address]- Attending Physician: Fernando Martin MD Allergies, Adverse Reactions, Alerts No Known [...] tablet, 5 Refills, Maintenance, 01/29/22 11:05:00 EDT, [facility] #[id number], 183, cm, 01/17/22 9:17:00 EDT, Height Start Date: 01/29/22 Status: Orderedescitalopram 20 mg oral tablet 1 tablet = 20 mg, By Mouth, Daily, # 30 tablet, 11 Refills, Maintenance, 01/17/22 9:39:00 EDT, Tablet, [facility] #35037, Partial fill upon patient request if the prescription is for a schedule II opioid drug., 183, cm, 01/17/22 9:17:00 EDT,... Start Date: 01/17/22 Stop Date: 01/12/23 Status: Orderedfolic acid 1 mg oral tablet 1 mg, 1, tablet, By Mouth, Daily, # 30 tablet, Refills 11, Tot. Refills 11, Maintenance, 04/28/21 10:47:00 EST, Route to Pharmacy Electronically, [facility] #79385, 183, cm, 04/25/21 15:05:00EST, Height, 77.5, kg, 11/08/19 18:47:00 EDT, Dry... Start Date: 04/28/21 Stop Date: 04/23/22 Status: OrderedK-Tab 20 mEq oral tablet, extended release 1 tablet = 20 mEq, By Mouth, Daily, # 30 tablet, 11 Refills, Maintenance, 04/03/22 11:09:00 EST, [facility] #[id number], Partial fill upon patient request if the [...] 04/25/21 15:06:00 EST, Route to Pharmacy Electronically, [facility] #[id number], Partial fill upon patientrequest if the prescription is for a schedule II... Start Date: 04/25/21 Status: OrderedLevoxyl 0.025 mg oral tablet 1 tablet = 25 mcg, By Mouth, Daily, # 30 tablet, 11 Refills, Maintenance, 01/17/22 9:40:00 EDT, Tablet, [facility] #[id number], Partial fill upon patient request if the [...] 01/17/22 9:33:00 EDT, Route to Pharmacy Electronically, [id number], [facility] #[id number], 183, cm, 01/17/22 9:17:00 EDT, Height Start Date: 01/17/22 Status: OrderedVentolin HFA 108 mcg/inh inhalation aerosol with adapter 2 puffs, Inhalation, Every 4 hours, # 8.5 Gm, 11 Refills, Maintenance, 03/30/22 12:03:00 EST, [facility] #52698, Partial fill upon patient request if the prescription is for a schedule II opioid drug., 183, cm, 01/17/22 9:17:00 EDT, Height Start Date: 03/30/22 Status: Orderedvitamin A 8000 u oral capsule 1 capsule = 8,000 units, By Mouth, Daily, # 100 capsule, 11 Refills, Maintenance, 01/03/22 13:40:00 EDT, [facility] #51603, Partial fill upon patient request if the prescription is for a schedule II opioid drug., 183, cm, 11/02/21 10:11:00 E... Start Date: 01/03/22 Status: OrderedVitamin B12 1000 mcg oral tablet 1 tablet = 1,000 mcg, By Mouth, Daily, # 30 tablet, 11 Refills, Maintenance, 04/25/21 15:06:00 EST, Tablet, [facility] #99605, 183, cm, 04/25/21 15:05:00 EST, Height, 77.5, [...] 04/03/22 11:15:00 EST, Route to Pharmacy Electronically, [facility] #[id number], Partial fill upon patient request if the [...] Confirmed Active Vertigo Confirmed 02/15/11 Active 1colo 01058cbor 95193bxo 2001 negative [id number]; repeat 80078hcdb 89878ruwd 2018 Social History Social History Type Response Smoking Status Never smoker entered on: 09/28/15 Sex Male Implantable Device List Procedure Provider Procedure Date Device Type Site Repair Hernia Inguinal Mal DO, Cyndi Richardson 07/15/19 Unknown Groin Right Open Device Serial Lot or Manufacturing Expiration Distinct MRI Implan table Assigning Identifier Number Batch Date Date Identification Safety Status Authority Number Code Unknown Unknown [id number] Unknown 09/16/22 Unknown Unknown Active Unknown 2 Patient Care team information Care Team PersonnelName: Fernando Martin MD Position: [facility] Primary Care Physician Member Role: PCP Address: Address: [address] [place] [address]- Name: Leoncio Bowers RN Position: [facility] SN RN Member Role: Primary Care Nurse Care Team Related PersonsName: MINDY MEIER Address: home [address] [place] [address] Name: LEONCIO [facility] Address: home [facility]
--- OUTSIDE RECORDS SUMMARY | 2022-06-20 19:49 | XMS_ITS | Continuity of Care Document ---
:1965 Author Organization [facility] [place] Address [address] [place] [address], [address] [address]- Care Team Providers Name Role Phone Veronica DENIS, Fernando Kwok Primary Care Physician Encounter 07/03/19 - 07/10/19 [facility] [address], [address] [address]- [facility] Attending Physician: Carrol Edmonds NP Admitting Physician: Carrol Edmonds NP Referring Physician: Carrol Edmonds NP Allergies, Adverse Reactions, Alerts Substance Reaction Severity [...] 09/29/18 8:16:03 EDT, Route to Pharmacy Electronically, [id number], [facility] [id number] Start Date: 09/29/18 Stop Date: 09/24/19 Status: Orderedenoxaparin 120 mg/0.8 mL injectable solution = 120 mg, Subcutaneous Injection, Daily, # 5.6 mL, 0 Refills, Maintenance, 06/29/19 14:24:00 EST, Solution Start Date: 06/29/19 Stop Date: 07/06/19 Status: OrderedNasacort 0 Refills, Maintenance, 09/28/15 8:56:41 [...] 03/30/19 15:17:48 EST, Route to Pharmacy Electronically, [id number], [facility] #[id number] Start Date: 03/30/19 Stop Date: 03/24/20 Status: OrderedSEROquel 25 mg oral tablet 25 mg, 1, tablet, By Mouth, 2 times a day, # 60 tablet, Refills 1, Tot. Refills 1, Maintenance, 12/25/18 8:04:20 EDT, Route to Pharmacy Electronically, [id number], [facility] #[id number] Start Date: 12/25/18 Stop Date: 02/23/19 Status: Orderedsertraline 100 mg oral tablet 1 tablet = 100 mg, By Mouth, Daily, # 30 tablet, 11 Refills, Maintenance, 09/29/18 8:16:01 EDT, Tablet Start Date: 09/29/18 Status: OrderedtraMADol 50 mg oral tablet 1 tablet = 50 mg, By Mouth, Every 12 hours, PRN as needed for pain, 0 Refills, Maintenance, 06/29/2013:05:00 EST, Tablet Start Date: 06/29/19 Status: OrderedVitamin B12 1000 mcg oral tablet [...] Polyp of rectum(Confirmed)4 Active Syncope(Confirmed) Active 1colo 68927wsu 2000 negative [id number]; repeat 49801neti 2017 Social History Social History Type Response Smoking Status Never smoker entered on: 09/28/15 Sex Male
--- OUTSIDE RECORDS SUMMARY | 2022-06-20 19:49 | XMS_ITS | Continuity of Care Document ---
:1965 Author Organization [facility] Address [address] [place] [address]- Care Team Providers Name Role Phone Fernando Martin MD Primary Care Physician Encounter [facility] [place] Date(s): 11/14/20 - 11/21/20 [facility] [address] [place] [address]- Attending Physician: Fernando Martin MD Allergies, Adverse [...] 05/03/20 10:47:00 EST, Route to Pharmacy Electronically, [facility] #[id number], 183, cm, 05/03/20 10:28:00EST, Height, 77.5, kg, 11/08/19 18:47:00 EDT, Dry... Start Date: 05/03/20 Stop Date: 04/28/21 Status: Orderedlactulose 10 gm/15 ml oral syrup 30 mL = 20 Gm, By Mouth, 3 times a day, # 480 mL, 11 Refills, Maintenance, 05/03/20 11:06:00 EST, Syrup, [email or web address]07901, Partial fill upon patient request if the prescription is for a schedule II opioid drug., 30 mL By Mouth 3 times a day... Start Date: 05/03/20 Status: OrderedLasix 40 mg oral tablet 40 mg, 1, tablet, By Mouth, Daily, # 30 tablet, Refills 11, Tot. Refills 11, Maintenance, 05/03/20 10:48:00 EST, Route to Pharmacy Electronically, [email or web address] #[id number], Partial fill upon patientrequest if the prescription is for a schedule II... Start Date: 05/03/20 Status: OrderedLexapro 10 mg oral tablet 1 tablet = 10 mg, By Mouth, Daily, # 30 tablet, 11 Refills, Maintenance, 06/24/20 11:21:00 EST, Tablet, [email or web address] #[id number], Partial fill upon patient request if the prescription is for a schedule II opioid drug., 183, cm, 06/24/20 11:05:00 ES... Start Date: 06/24/20 Stop Date: 06/19/21 Status: Orderedmagnesium oxide 400 mg oral tablet 1 tablet = 400 mg, By Mouth, Daily, for 30 days, # 30 tablet, 11 Refills, Acute 04/28/21 10:49:00 EST, 05/03/20 10:49:00 EST, Tablet, [email or web address] #[id number], Partial fill upon patient request if the [...] 05/03/20 10:48:00 EST, Route to Pharmacy Electronically, [facility] #[id number], Partial fill upon patient request if the prescription is for a schedule II... Start Date: 05/03/20 Status: OrderedVitamin B12 1000 mcg oral tablet 1 tablet = 1,000 mcg, By Mouth, Daily, # 30 tablet, 11 Refills, Maintenance, 05/03/20 10:47:00 EST, Tablet, [facility] #88104, 183, cm, 05/03/20 10:28:00 EST, Height, 77.5, [...] Polyp of rectum(Confirmed)6 Active Syncope(Confirmed) Active 1colo 27177pyib 00005iml 2000 negative [id number]; repeat 01061qskr 54208wwsw 2017 Vital Signs Most recent to oldest [Reference Range]: 1 Height 183 cm (11/14/20 2:27 PM) Weight 78.1 kg (11/14/20 2:27 PM) Oxygen Saturation [94-100 %] 97 % (11/14/20 2:27 PM) Pulse Rate [55-90 bpm] 77 bpm (11/14/20 2:27 PM) Body Mass Index [18.5-24.99] 23.32 (11/14/20 2:27 PM) Blood Pressure [90-138/55-84 mm Hg] 128/58 mm Hg (11/14/20 2:27 PM) Respiratory Rate [16-30 br/min] 12 br/min *L* (11/14/20 2:27 PM) Mode of Delivery (Oxygen) Room air (11/14/20 2:27 PM) Blood pressure sites Arm, left (11/14/20 2:27 PM) Weight Obtained Via Standing scale (11/14/20 2:27 PM) Social History Social History Type Response Smoking Status Never smoker entered on: 09/28/15 Sex Male Medical Equipment Implanted Date:07/15/19 Target Site:Groin Right Description Quantity MRI Company Model PATCH HERNIA PROLENE MEDIUM - [employer] 1 [employer] n/j&j Wound Closure Unknown (ETPHSM6) FORTINO: No Information Assigning Authority: FDA
--- OUTSIDE RECORDS SUMMARY | 2022-06-20 19:49 | XMS_ITS | Continuity of Care Document ---
:1965 Author Organization [facility] Adult Address [address] [place] [address]- Care Team Providers Name Role Phone Fernando Martin MD Primary Care Physician Encounter [facility] Date(s): 11/02/21 - 11/09/21 [facility] [address] [place] [address]- Attending Physician: Fernando Martin MD Allergies, Adverse [...] tablet, 6 Refills, Maintenance, 06/29/21 8:02:00 EST, [facility] #[id number], Partial fill upon patient request if the prescription is for a schedule II opioid drug., 183, cm, 06/29/21 7:54:00 EST, Height,... Start Date: 06/29/21 Status: Orderedfolic acid 1 mg oral tablet 1 mg, 1, tablet, By Mouth, Daily, # 30 tablet, Refills 11, Tot. Refills 11, Maintenance, 04/28/21 10:47:00 EST, Route to Pharmacy Electronically, [facility] #[id number], 183, cm, 04/25/21 15:05:00EST, Height, 77.5, kg, 11/08/19 18:47:00 EDT, Dry... Start Date: 04/28/21 Stop Date: 04/23/22 Status: OrderedLasix 40 mg oral tablet 40 mg, 1, tablet, By Mouth, Daily, # 30 tablet, Refills 11, Tot. Refills 11, Maintenance, 04/25/21 15:06:00 EST, Route to Pharmacy Electronically, [facility] #[id number], Partial fill upon patientrequest if the prescription is for a schedule II... Start Date: 04/25/21 Status: OrderedLexapro 10 mg oral tablet 1 tablet = 10 mg, By Mouth, Daily, # 30 tablet, 11 Refills, Maintenance, 06/19/21 11:21:00 EST, Tablet, [facility] #[id number], Partial fill upon patient request if the prescription is for a schedule II opioid drug., 183, cm, 04/25/21 15:05:00 ES... Start Date: 06/19/21 Stop Date: 06/14/22 Status: Orderedmagnesium oxide 400 mg oral tablet 1 tablet = 400 mg, By Mouth, Daily, for 30 days, # 30 tablet, 11 Refills, Acute 04/23/22 10:49:00 EST, 04/28/21 10:49:00 EST, Tablet, [facility] #[id number], Partial fill upon patient request if the prescription is for a schedule II opioid drug.,... Start Date: 04/28/21 Stop Date: 04/23/22 Status: Orderedmeclizine 25 mg oral tablet 1 tablet, By Mouth, 3 times a day, PRN NEEDED FOR DIZZINESS, # 30 tablet, 0 Refills, [facility] #[id number], 183, cm, 08/22/21 10:40:00 EDT, Height, 77.5, [...] 08/04/21 10:46:00 EDT, Route to Pharmacy Electronically, [facility] #[id number], Partial fill upon patient request if the [...] 08/22/21 10:48:00 EDT, Route to Pharmacy Electronically, [id number], [facility] #[id number], 183, cm, 08/22/21 10:40:00 EDT, Height, 77.5, kg, ... Start Date: 08/22/21 Status: Orderedspironolactone 100 mg oral tablet 100 mg, 1, tablet, By Mouth, Daily, # 30 tablet, Refills 11, Tot. Refills 11, Maintenance, 04/25/21 15:06:00 EST, Route to Pharmacy Electronically, [facility] #[id number], Partial fill upon patient request if the prescription is for a schedule II... Start Date: 04/25/21 Status: OrderedVitamin B12 1000 mcg oral tablet 1 tablet = 1,000 mcg, By Mouth, Daily, # 30 tablet, 11 Refills, Maintenance, 04/25/21 15:06:00 EST, Tablet, [facility] #[id number], 183, cm, 04/25/21 15:05:00 EST, Height, 77.5, [...] rectum(Confirmed)6 Active Depression, major, recurrent, Active moderate(Confirmed) Syncope(Confirmed) Active Vertigo(Confirmed) 02/15/11 Active 1colo 15071fyhb 55212jfc 2000 negative aactagkb09053; repeat 14521obza 24379ipva 2017 Vital Signs Most recent to oldest [Reference Range]: 1 Height 183 cm (11/02/21 10:11 AM) Weight 79.9 kg (11/02/21 10:11 AM) Oxygen Saturation [94-100 %] 97 % (11/02/21 10:11 AM) Pulse Rate [55-90 bpm] 53 bpm *L* (11/02/21 10:11 AM) Body Mass Index [18.5-24.99] 23.86 (11/02/21 10:11 AM) Blood Pressure [90-138/55-84 mm Hg] 104/66 mm Hg (11/02/21 10:11 AM) Mode of Delivery (Oxygen) Room air (11/02/21 10:11 AM) Blood pressure sites Arm, left (11/02/21 10:11 AM) Weight Obtained Via Standing scale (11/02/21 10:11 AM) Social History Social History Type Response Smoking Status Never smoker entered on: 09/28/15 Sex Male Medical Equipment Implanted Date:07/15/19 Target Site:Groin Right Description Quantity MRI Company Model PATCH HERNIA PROLENE MEDIUM - [facility] 1 [employer] n/j&j Wound Closure Unknown (ETPHSM6) FORTINO: No Information Assigning Authority: FDA
--- OUTSIDE RECORDS SUMMARY | 2022-06-20 19:50 | XMS_ITS | Continuity of Care Document ---
:1965 Author Organization [facility] Adult Address [address] [place] [address]- Care Team Providers Name Role Phone Fernando Martin MD Primary Care Physician Encounter [facility] [place] Date(s): 04/25/21 - 05/02/21 [facility] [address] [place] [address]- Attending Physician: Fernando Martin MD Allergies, Adverse [...] 8.5 Gm, 0 Refills, 05/01/21 13:02:00 EST, [facility]#[id number], 25, 2 puffs Inhalation 4 times a day, 183, cm, 05/01/21 6:58:00 EST, Height, 77.5, kg, 11/08/19 18:47:00 EDT, Dry Weight Start Date: 05/01/21 Status: Orderedatorvastatin 10 mg oral tablet 1 tablet = 10 mg, By Mouth, Daily, # 30 tablet, 0 Refills, Maintenance, 05/01/21 7:15:00 EST, [facility] #[id number], Partial fill upon patient request if the prescription is for a schedule II opioid drug., 183, cm, 05/01/21 6:58:00 EST, Height,... Start Date: 05/01/21 Status: Orderedfolic acid 1 mg oral tablet 1 mg, 1, tablet, By Mouth, Daily, # 30 tablet, Refills 11, Tot. Refills 11, Maintenance, 04/28/21 10:47:00 EST, Route to Pharmacy Electronically, [facility] #[id number], 183, cm, 04/25/21 15:05:00EST, Height, 77.5, kg, 11/08/19 18:47:00 EDT, Dry... Start Date: 04/28/21 Stop Date: 04/23/22 Status: Orderedlactulose 10 gm/15 ml oral syrup 30 mL = 20 Gm, By Mouth, 3 times a day, # 480 mL, 11 Refills, Maintenance, 04/25/21 15:06:00 EST, Syrup, [facility] #[id number], Partial fill upon patient request if the prescription is for a schedule II opioid drug., 30 mL By Mouth 3 times a day... Start Date: 04/25/21 Status: OrderedLasix 40 mg oral tablet 40 mg, 1, tablet, By Mouth, Daily, # 30 tablet, Refills 11, Tot. Refills 11, Maintenance, 04/25/21 15:06:00 EST, Route to Pharmacy Electronically, [facility] #[id number], Partial fill upon patientrequest if the prescription is for a schedule II... Start Date: 04/25/21 Status: OrderedLexapro 10 mg oral tablet 1 tablet = 10 mg, By Mouth, Daily, # 30 tablet, 11 Refills, Maintenance, 06/19/21 11:21:00 EST, Tablet, [facility] #[id number], Partial fill upon patient request if the prescription is for a schedule II opioid drug., 183, cm, 04/25/21 15:05:00 ES... Start Date: 06/19/21 Stop Date: 06/14/22 Status: Orderedmagnesium oxide 400 mg oral tablet 1 tablet = 400 mg, By Mouth, Daily, for 30 days, # 30 tablet, 11 Refills, Acute 04/23/22 10:49:00 EST, 04/28/21 10:49:00 EST, Tablet, [facility] #[id number], Partial fill upon patient request if the [...] 04/25/21 15:06:00 EST, Route to Pharmacy Electronically, [facility] #[id number], Partial fill upon patient request if the prescription is for a schedule II... Start Date: 04/25/21 Status: OrderedVitamin B12 1000 mcg oral tablet 1 tablet = 1,000 mcg, By Mouth, Daily, # 30 tablet, 11 Refills, Maintenance, 04/25/21 15:06:00 EST, Tablet, [facility] #[id number], 183, cm, 04/25/21 15:05:00 EST, Height, 77.5, [...] Polyp of rectum(Confirmed)6 Active Syncope(Confirmed) Active 1colo 53234wpup 97760rsk 2000 negative ywgajmex98357; repeat 20140yqvi 33482rjtl 2018 Vital Signs Most recent to oldest 1 2 3 [Reference Range]: Height 183 cm 183 cm 183 cm (04/25/21 3:05 PM) (04/25/21 3:05 PM) (04/25/21 2:5 1 PM) Weight 82.8 kg (04/25/21 2:51 PM) Oxygen Saturation [94-100 %] 96 % (04/25/21 2:51 PM) Pulse Rate [55-90 bpm] 68 bpm (04/25/21 2:51 PM) Body Mass Index [18.5-24.99] 24.72 (04/25/21 2:51 PM) Blood Pressure [90-138/55-84 mm 141/58 mm Hg 133/58 mm Hg 147/73 mm Hg Hg] *H* (04/25/21 3:05 PM) *H* (04/25/21 3:05 PM) (04/25/21 2:51 PM) Respiratory Rate [16-30 br/min] 16 br/min (04/25/21 2:51 PM) Temperature [96.8-100.4 DegF] 99.2 DegF (04/25/21 2:51 PM) Mode of Delivery (Oxygen) Room air (04/25/21 2:51 PM) Blood pressure sites Arm, right Arm, left (04/25/21 3:05 PM) (04/25/21 2:51 PM) Temperature Route Oral (04/25/21 2:51 PM) Weight Obtained Via Standing scale (04/25/21 2:51 PM) Social History Social History Type Response Smoking Status Never smoker entered on: 09/28/15 Sex Male Medical Equipment Implanted Date:07/15/19 Target Site:Groin Right Description Quantity MRI Company Model PATCH HERNIA PROLENE MEDIUM - [facility] 1 [employer] n/j&j Wound Closure Unknown (ETPHSM6) FORTINO: No Information Assigning Authority: FDA
--- OUTSIDE RECORDS SUMMARY | 2022-06-20 19:50 | XMS_ITS | Continuity of Care Document ---
:1965 Author Organization [facility] Address [address] [place] [address]- Care Team Providers Name Role Phone Fernando Martin MD Primary Care Physician Encounter [facility] Date(s): 11/11/19 - 11/18/19 [facility] [address] [place] [address] Encounter Diagnosis Heavy alcohol use (Discharge Diagnosis) - 11/11/19 Left foot drop (Discharge Diagnosis) - 11/11/19 Prothrombin mutation (Discharge Diagnosis) - 11/11/19 Attending Physician: Fernando Martin MD Allergies, Adverse [...] 08/20/19 8:46:00 EDT, Route to Pharmacy Electronically, [id number], [facility] #[id number], 183, cm, 07/24/19 10:31:00 EST, Height... Start [...] 11/10/19 10:53:00 EDT, Route to Pharmacy Electronically, [facility], 183, cm, 11/10/19 9:27:00 EDT, Height, [...] 08/20/19 8:46:00 EDT, Route to Pharmacy Electronically, [id number], [facility] #[id number], 183, cm... Start Date: 08/20/19 Stop Date: 08/14/20 Status: Orderedpyridoxine 100 mg oral tablet 1 tablet = 100 mg, By Mouth, Daily, # 30 tablet, 0 Refills, Maintenance, 11/10/19 10:52:00 EDT, Tablet, [facility], 183, cm, 11/10/19 9:27:00 EDT, Height, 77.5, kg, 11/08/19 18:47:00 EDT,Dry Weight Start Date: 11/10/19 Status: Orderedsertraline 100 mg oral tablet 1 tablet = 100 mg, By Mouth, Daily, # 30 tablet, 11 Refills, Maintenance, 08/20/19 8:45:00 EDT, Tablet, [facility] #[id number], 183, cm, 07/24/19 10:31:00 EST, Height, 78.5, kg, 07/15/19 6:56:00 EST, Dry Weight Start Date: 08/20/19 Status: Orderedthiamine 100 mg oral tablet 100 mg, 1, tablet, By Mouth, Daily, # 30 tablet, Refills 0, Tot. Refills 0, Maintenance, 11/10/19 10:52:00 EDT, Route to Pharmacy Electronically, [facility], 183, cm, 11/10/19 9:27:00 EDT, Height, 77.5, kg, 11/08/19 18:47:00 EDT, Dry Weight Start Date: 11/10/19 Status: OrderedVitamin B12 1000 mcg oral tablet 1 tablet = 1,000 mcg, By Mouth, Daily, # 30 tablet, 11 Refills, Maintenance, 08/20/19 8:46:00 EDT, Tablet, [facility] #[id number], 183, cm, 07/24/19 10:31:00 EST, Height, 78.5, [...] Polyp of rectum(Confirmed)4 Active Syncope(Confirmed) Active 1colo 10638eok 2000 negative vrwmyivy73671; repeat 2017 Diagnosis Diagnosis Type Effective Dates Health Clinical Infor mant Status Service Heavy alcohol use Discharge 11/11/19 Diagnosis Left foot drop Discharge 11/11/19 Diagnosis Prothrombin Discharge 11/11/19 mutation Diagnosis Vital Signs Most recent to oldest [Reference Range]: 1 Height 183 cm (11/11/19 3:53 PM) Social History Social History Type Response Smoking Status Never smoker entered on: 09/28/15 Sex Male Medical Equipment Implanted Date:07/15/19 Target Site:Groin Right Description Quantity MRI Company Model PATCH HERNIA PROLENE MEDIUM - [facility] 1 [employer] n/j&j Wound Closure Unknown (ETPHSM6) FORTINO: No Information Assigning Authority: FDA
--- OUTSIDE RECORDS SUMMARY | 2022-06-20 19:50 | XMS_ITS | Continuity of Care Document ---
:1965 Author Organization [facility] Address [address] [place] [address]- Care Team Providers Name Role Phone Fernando Martin MD Primary Care Physician [place] [facility] 06/[place] - 07/01/20 [facility] [address] [place] [address]- Attending Physician: Fernando Martin MD Allergies, Adverse [...] 05/03/20 10:47:00 EST, Route to Pharmacy Electronically, [facility] #[id number], 183, cm, 05/03/20 10:28:00EST, Height, 77.5, kg, 11/08/19 18:47:00 EDT, Dry... Start Date: 05/03/20 Stop Date: 04/28/21 Status: Orderedlactulose 10 gm/15 ml oral syrup 30 mL = 20 Gm, By Mouth, 3 times a day, # 480 mL, 11 Refills, Maintenance, 05/03/20 11:06:00 EST, Syrup, [facility] #[id number], Partial fill upon patient request if the prescription is for a schedule II opioid drug., 30 mL By Mouth 3 times a day... Start Date: 05/03/20 Status: OrderedLasix 40 mg oral tablet 80 mg, 2, tablet, By Mouth, Daily, # 30 tablet, Refills 11, Tot. Refills 11, Maintenance, 05/03/20 10:48:00 EST, Route to Pharmacy Electronically, [facility] #[id number], Partial fill upon patientrequest if the prescription is for a schedule II... Start Date: 05/03/20 Status: OrderedLexapro 10 mg oral tablet 1 tablet = 10 mg, By Mouth, Daily, # 30 tablet, 11 Refills, Maintenance, 06/24/20 11:21:00 EST, Tablet, [facility] #[id number], Partial fill upon patient request if the prescription is for a schedule II opioid drug., 183, cm, 06/24/20 11:05:00 ES... Start Date: 06/24/20 Stop Date: 06/19/21 Status: Orderedmagnesium oxide 400 mg oral tablet 1 tablet = 400 mg, By Mouth, Daily, for 30 days, # 30 tablet, 11 Refills, Acute 04/28/21 10:49:00 EST, 05/03/20 10:49:00 EST, Tablet, [facility] #[id number], Partial fill upon patient request if the [...] 08/20/19 8:46:00 EDT, Route to Pharmacy Electronically, [id number], [facility] #[id number], 183, cm... Start Date: 08/20/19 Stop Date: 08/14/20 Status: Orderedspironolactone 100 mg oral tablet 200 mg, 2, tablet, By Mouth, Daily, # 30 tablet, Refills 11, Tot. Refills 11, Maintenance, 05/03/20 10:48:00 EST, Route to Pharmacy Electronically, [facility] #[id number], Partial fill upon patient request if the prescription is for a schedule II... Start Date: 05/03/20 Status: OrderedVitamin B12 1000 mcg oral tablet 1 tablet = 1,000 mcg, By Mouth, Daily, # 30 tablet, 11 Refills, Maintenance, 05/03/20 10:47:00 EST, Tablet, [facility] #[id number], 183, cm, 05/03/20 10:28:00 EST, Height, 77.5, [...] Polyp of rectum(Confirmed)6 Active Syncope(Confirmed) Active 1colo 30580mnit 34999spv 2001 negative tqpuaezx18192; repeat 60799udes 66314tbax 2017 Vital Signs Most recent to oldest [Reference Range]: 1 Height 183 cm (06/24/20 11:05 AM) Weight 74.7 kg (06/24/20 11:05 AM) Oxygen Saturation [94-100 %] 98 % (06/24/20 11:05 AM) Pulse Rate [55-90 bpm] 92 bpm *H* (06/24/20 11:05 AM) Body Mass Index [18.5-24.99] 22.31 (06/24/20 11:05 AM) Blood Pressure [90-138/55-84 mm Hg] 110/64 mm Hg (06/24/20 11:05 AM) Mode of Delivery (Oxygen) Room air (06/24/20 11:05 AM) Blood pressure sites Arm, left (06/24/20 11:05 AM) Weight Obtained Via Standing scale (06/24/20 11:05 AM) Social History Social History Type Response Smoking Status Never smoker entered on: 09/28/15 Sex Male Medical Equipment Implanted Date:07/15/19 Target Site:Groin Right Description Quantity MRI Company Model PATCH HERNIA PROLENE MEDIUM - [facility] 1 [employer] n/j&j Wound Closure Unknown (ETPHSM6) FORTINO: No Information Assigning Authority: FDA
--- OUTSIDE RECORDS SUMMARY | 2022-06-20 19:50 | XMS_ITS | Continuity of Care Document ---
:1965 Author Organization [facility] Address [address] [place] [address]- Care Team Providers Name Role Phone Fernando Martin MD Primary Care Physician Encounter [facility] [place] Date(s): 10/28/19 - 11/04/19 [facility] [address] [place] [address]- [facility] Attending Physician: Fernando Martin MD Allergies, Adverse [...] 08/20/19 8:46:00 EDT, Route to Pharmacy Electronically, [id number], [facility] #[id number], 183, cm, 07/24/19 10:31:00 EST, Height... Start [...] tablet, Refills 3, Tot. Refills 3, Maintenance, 10/28/19 9:04:00 EDT, Route to Pharmacy Electronically, [facility] #[id number], 183, cm, 10/28/19 8:43:00 EDT, Height, 78.5, kg, 07/15/19 6:56:00 EST, Dry Weight Start Date: 10/28/19 Status: OrderedNasacort 0 Refills, Maintenance, 09/28/15 8:56:41 [...] 08/20/19 8:46:00 EDT, Route to Pharmacy Electronically, [id number], [facility] #[id number], 183, cm... Start Date: 08/20/19 Stop Date: 08/14/20 Status: Orderedsertraline 100 mg oral tablet 1 tablet = 100 mg, By Mouth, Daily, # 30 tablet, 11 Refills, Maintenance, 08/20/19 8:45:00 EDT, Tablet, [facility] #23876, 183, cm, 07/24/19 10:31:00 EST, Height, 78.5, kg, 07/15/19 6:56:00 EST, Dry Weight Start Date: 08/20/19 Status: OrderedVitamin B12 1000 mcg oral tablet 1 tablet = 1,000 mcg, By Mouth, Daily, # 30 tablet, 11 Refills, Maintenance, 08/20/19 8:46:00 EDT, Tablet, [facility] #60514, 183, cm, 07/24/19 10:31:00 EST, Height, 78.5, [...] Polyp of rectum(Confirmed)4 Active Syncope(Confirmed) Active 1colo 59325fvn 2000 negative jskbnbzk01594; repeat 44438sftq 2017 Vital Signs Most recent to oldest [Reference Range]: 1 Height 183 cm (10/28/19 8:43 AM) Weight 75.1 kg (10/28/19 8:43 AM) Oxygen Saturation [94-100 %] 98 % (10/28/19 8:43 AM) Pulse Rate [55-90 bpm] 88 bpm (10/28/19 8:43 AM) Body Mass Index [18.5-24.99] 22.43 (10/28/19 8:43 AM) Blood Pressure [90-138/55-84 mm Hg] 110/72 mm Hg (10/28/19 8:43 AM) Mode of Delivery (Oxygen) Room air (10/28/19 8:43 AM) Blood pressure sites Arm, left (10/28/19 8:43 AM) Weight Obtained Via Standing scale (6/10/20 8:43 AM) Social History Social History Type Response Smoking Status Never smoker entered on: 09/28/15 Sex Male Medical Equipment Implanted Date:07/15/19 Target Site:Groin Right Description Quantity MRI Company Model PATCH HERNIA PROLENE MEDIUM - [facility] 1 [employer] n/j&j Wound Closure Unknown (ETPHSM6) FORTINO: No Information Assigning Authority: FDA
--- OUTSIDE RECORDS SUMMARY | 2022-06-20 19:50 | XMS_ITS | Continuity of Care Document ---
:1965 Author Organization [facility] Address [address] [place] [address]- Care Team Providers Name Role Phone Veronica DENIS, Fernando Kwok Primary Care Physician Encounter [facility] Date(s): 10/09/21 - 11/08/21 [facility] [address] [place] [address]- Allergies, Adverse Reactions, Alerts No Known Allergies [...] tablet, 6 Refills, Maintenance, 06/29/21 8:02:00 EST, [facility] #[id number], Partial fill upon patient request if the prescription is for a schedule II opioid drug., 183, cm, 06/29/21 7:54:00 EST, Height,... Start Date: 06/29/21 Status: Orderedfolic acid 1 mg oral tablet 1 mg, 1, tablet, By Mouth, Daily, # 30 tablet, Refills 11, Tot. Refills 11, Maintenance, 04/28/21 10:47:00 EST, Route to Pharmacy Electronically, [facility] #[id number], 183, cm, 04/25/21 15:05:00EST, Height, 77.5, kg, 11/08/19 18:47:00 EDT, Dry... Start Date: 04/28/21 Stop Date: 04/23/22 Status: OrderedLasix 40 mg oral tablet 40 mg, 1, tablet, By Mouth, Daily, # 30 tablet, Refills 11, Tot. Refills 11, Maintenance, 04/25/21 15:06:00 EST, Route to Pharmacy Electronically, [facility] #[id number], Partial fill upon patientrequest if the prescription is for a schedule II... Start Date: 04/25/21 Status: OrderedLexapro 10 mg oral tablet 1 tablet = 10 mg, By Mouth, Daily, # 30 tablet, 11 Refills, Maintenance, 06/19/21 11:21:00 EST, Tablet, [facility] #[id number], Partial fill upon patient request if the prescription is for a schedule II opioid drug., 183, cm, 04/25/21 15:05:00 ES... Start Date: 06/19/21 Stop Date: 06/14/22 Status: Orderedmagnesium oxide 400 mg oral tablet 1 tablet = 400 mg, By Mouth, Daily, for 30 days, # 30 tablet, 11 Refills, Acute 04/23/22 10:49:00 EST, 04/28/21 10:49:00 EST, Tablet, [facility] #[id number], Partial fill upon patient request if the prescription is for a schedule II opioid drug.,... Start Date: 04/28/21 Stop Date: 04/23/22 Status: Orderedmeclizine 25 mg oral tablet 1 tablet, By Mouth, 3 times a day, PRN NEEDED FOR DIZZINESS, # 30 tablet, 0 Refills, [facility] #[id number], 183, cm, 08/22/21 10:40:00 EDT, Height, 77.5, [...] 08/04/21 10:46:00 EDT, Route to Pharmacy Electronically, [facility] #[id number], Partial fill upon patient request if the [...] 08/22/21 10:48:00 EDT, Route to Pharmacy Electronically, [id number], [facility] #[id number], 183, cm, 08/22/21 10:40:00 EDT, Height, 77.5, kg, ... Start Date: 08/22/21 Status: Orderedspironolactone 100 mg oral tablet 100 mg, 1, tablet, By Mouth, Daily, # 30 tablet, Refills 11, Tot. Refills 11, Maintenance, 04/25/21 15:06:00 EST, Route to Pharmacy Electronically, [facility] #[id number], Partial fill upon patient request if the prescription is for a schedule II... Start Date: 04/25/21 Status: OrderedVitamin B12 1000 mcg oral tablet 1 tablet = 1,000 mcg, By Mouth, Daily, # 30 tablet, 11 Refills, Maintenance, 04/25/21 15:06:00 EST, Tablet, [facility] #82958, 183, cm, 04/25/21 15:05:00 EST, Height, 77.5, [...] moderate(Confirmed) Syncope(Confirmed) Active Vertigo(Confirmed) 02/15/11 Active 1colo 89238iiho 90696kjk 2001 negative uownserb94609; repeat 53436yqbb 77845wrhr 2018 Social History Social History Type Response Smoking Status Never smoker entered on: 09/28/15 Sex Male Medical Equipment Implanted Date:07/15/19 Target Site:Groin Right Description Quantity MRI Company Model PATCH HERNIA PROLENE MEDIUM - [facility] 1 [employer] n/j&j Wound Closure Unknown (ETPHSM6) FORTINO: No Information Assigning Authority: FDA
--- OUTSIDE RECORDS SUMMARY | 2022-06-20 19:50 | XMS_ITS | Continuity of Care Document ---
:1965 Author Organization [facility] Address [address] [place] [address]- Care Team Providers Name Role Phone Fernando Martin MD Primary Care Physician [place] [facility] [place] Date(s): 07/21/19 - 07/31/19 [facility] [address] [place] [address]- [facility] Attending Physician: Carmen Blancas Admitting Physician: Carmen Blancas Referring Physician: Carmen Blancas Allergies, Adverse Reactions, Alerts Substance Reaction Severity [...] 09/29/18 8:16:03 EDT, Route to Pharmacy Electronically, [id number], [id number] Start Date: 09/29/18 Stop Date: 09/24/19 Status: [...] 03/30/19 15:17:48 EST, Route to Pharmacy Electronically, [id number], [facility] #[id number] Start Date: 03/30/19 Stop Date: 03/24/20 Status: OrderedSEROquel 25 mg oral tablet 25 mg, 1, tablet, By Mouth, 2 times a day, # 60 tablet, Refills 1, Tot. Refills 1, Maintenance, 12/25/18 8:04:20 EDT, Route to Pharmacy Electronically, [id number], [facility] #[id number] Start Date: 12/25/18 Stop Date: 02/23/19 Status: [...] Polyp of rectum(Confirmed)4 Active Syncope(Confirmed) Active 1colo 76119cue 2000 negative fjpjltqz61818; repeat 19758uato 2017 Social History Social History Type Response Smoking Status Never smoker entered on: 09/28/15 Sex Male Medical Equipment Implanted Date:07/15/19 Target Site:Groin Right Description Quantity MRI Company Model PATCH HERNIA PROLENE MEDIUM - [facility] 1 [employer] n/j&j Wound Closure Unknown (ETPHSM6) FORTINO: No Information Assigning Authority: FDA
--- OUTSIDE RECORDS SUMMARY | 2022-06-20 19:50 | XMS_ITS | Continuity of Care Document ---
:1965 Author Organization [facility] Adult Address [address] [place] [address]- Care Team Providers Name Role Phone Veronica DENIS, Fernando Kwok Primary Care Physician Encounter [facility] Date(s): 12/01/19 - 12/08/19 [facility] Adult [address] [place] [address]- [facility] Encounter Diagnosis Rash (Discharge Diagnosis) - 12/01/19 Attending Physician: Yusra Lackey NP Allergies, Adverse Reactions, Alerts Substance Reaction [...] 08/20/19 8:46:00 EDT, Route to Pharmacy Electronically, [id number], [facility] #[id number], 183, cm, 07/24/19 10:31:00 EST, Height... Start [...] 11/10/19 10:53:00 EDT, Route to Pharmacy Electronically, [facility], 183, cm, 11/10/19 9:27:00 EDT, Height, [...] tablet, 0 Refills, Maintenance, 12/01/19 7:32:00 EDT, [facility] #[id number], 183, cm, 12/01/19 7:19:00 EDT, Height, 77.5, kg, 11/08/19 18:47:00 EDT, Dry Weight Start Date: 12/01/19 Status: OrderedProAir HFA 90 mcg/inh inhalation aerosol with adapter 2, puffs, Inhalation, 4 times a day, for 30 days, # 1 each, Refills 11, Tot. Refills 11, Hard Stop 08/14/20 8:46:00 EDT, 08/20/19 8:46:00 EDT, Route to Pharmacy Electronically, [id number], [email or web address] #[id number], 183, cm... Start Date: 08/20/19 Stop Date: 08/14/20 Status: Orderedpyridoxine 100 mg oral tablet 1 tablet = 100 mg, By Mouth, Daily, # 30 tablet, 0 Refills, Maintenance, 11/10/19 10:52:00 EDT, Tablet, [facility], 183, cm, 11/10/19 9:27:00 EDT, Height, 77.5, kg, 11/08/19 18:47:00 EDT,Dry Weight Start Date: 11/10/19 Status: Orderedsertraline 100 mg oral tablet 1 tablet = 100 mg, By Mouth, Daily, # 30 tablet, 11 Refills, Maintenance, 08/20/19 8:45:00 EDT, Tablet, [email or web address] #[id number], 183, cm, 07/24/19 10:31:00 EST, Height, 78.5, kg, 07/15/19 6:56:00 EST, Dry Weight Start Date: 08/20/19 Status: Orderedthiamine 100 mg oral tablet 100 mg, 1, tablet, By Mouth, Daily, # 30 tablet, Refills 0, Tot. Refills 0, Maintenance, 11/10/19 10:52:00 EDT, Route to Pharmacy Electronically, [facility], 183, cm, 11/10/19 9:27:00 EDT, Height, 77.5, kg, 11/08/19 18:47:00 EDT, Dry Weight Start Date: 11/10/19 Status: OrderedVitamin B12 1000 mcg oral tablet 1 tablet = 1,000 mcg, By Mouth, Daily, # 30 tablet, 11 Refills, Maintenance, 08/20/19 8:46:00 EDT, Tablet, [email or web address] #[id number], 183, cm, 07/24/19 10:31:00 EST, Height, 78.5, [...] Polyp of rectum(Confirmed)4 Active Syncope(Confirmed) Active 1colo 16877rph 2000 negative [id number]; repeat 21906hzpe 2017 Diagnosis Diagnosis Type Effective Dates Health Status Clinical Serv ice Informant Rash Discharge 12/01/19 Diagnosis Vital Signs Most recent to oldest [Reference Range]: 1 Height 183 cm (12/01/19 7:19 AM) Weight 76.5 kg (12/01/19 7:19 AM) Oxygen Saturation [94-100 %] 96 % (12/01/19 7:19 AM) Pulse Rate [55-90 bpm] 81 bpm (12/01/19 7:19 AM) Body Mass Index [18.5-24.99] 22.84 (12/01/19 7:19 AM) Blood Pressure [90-138/55-84 mm Hg] 120/64 mm Hg (12/01/19 7:19 AM) Temperature [96.8-100.4 DegF] 98.8 DegF (12/01/19 7:19 AM) Temperature Route Oral (12/01/19 7:19 AM) Social History Social History Type Response Smoking Status Never smoker entered on: 09/28/15 Sex Male Medical Equipment Implanted Date:07/15/19 Target Site:Groin Right Description Quantity MRI Company Model PATCH HERNIA PROLENE MEDIUM - [facility]C 1 Ethico n/j&j Wound Closure Unknown (ETPHSM6) FORTINO: No Information Assigning Authority: FDA
--- OUTSIDE RECORDS SUMMARY | 2022-06-20 19:50 | XMS_ITS | Continuity of Care Document ---
:1965 Author Organization [facility] Adult Address [address] [place] [address]- Care Team Providers Name Role Phone Veronica DENIS, Fernando Kwok Primary Care Physician [place] [facility] [place]20 - 05/08/20 [facility] Adult [address] [place] [address]- Attending Physician: Nathaly Roldan NP Referring Physician: Fernando Martin MD Allergies, [...] 05/03/20 10:47:00 EST, Route to Pharmacy Electronically, [facility] #[id number], 183, cm, 05/03/20 10:28:00EST, Height, 77.5, kg, 11/08/19 18:47:00 EDT, Dry... Start Date: 05/03/20 Stop Date: 04/28/21 Status: Orderedlactulose 10 gm/15 ml oral syrup 30 mL = 20 Gm, By Mouth, 3 times a day, # 480 mL, 11 Refills, Maintenance, 05/03/20 11:06:00 EST, Syrup, [facility] #[id number], Partial fill upon patient request if the [...] 05/03/20 10:48:00 EST, Route to Pharmacy Electronically, [facility] #[id number], Partial fill upon patientrequest if the prescription is for a schedule II... Start Date: 05/03/20 Status: Orderedmagnesium oxide 400 mg oral tablet 1 tablet = 400 mg, By Mouth, Daily, for 30 days, # 30 tablet, 11 Refills, Acute 04/28/21 10:49:00 EST, 05/03/20 10:49:00 EST, Tablet, [facility] #[id number], Partial fill upon patient request if the [...] 08/20/19 8:46:00 EDT, Route to Pharmacy Electronically, [id number], [facility] #[id number], 183, cm... Start Date: 08/20/19 Stop Date: 08/14/20 Status: Orderedsertraline 100 mg oral tablet 1 tablet = 100 mg, By Mouth, Daily, # 30 tablet, 11 Refills, Maintenance, 08/20/19 8:45:00 EDT, Tablet, [facility] #[id number], 183, cm, 07/24/19 10:31:00 EST, Height, 78.5, kg, 07/15/19 6:56:00 EST, Dry Weight Start Date: 08/20/19 Status: Orderedspironolactone 100 mg oral tablet 100 mg, 1, tablet, By Mouth, Daily, # 30 tablet, Refills 11, Tot. Refills 11, Maintenance, 05/03/20 10:48:00 EST, Route to Pharmacy Electronically, [facility][id number], Partial fill upon patient request if the prescription is for a schedule II... Start Date: 05/03/20 Status: OrderedVitamin B12 1000 mcg oral tablet 1 tablet = 1,000 mcg, By Mouth, Daily, # 30 tablet, 11 Refills, Maintenance, 05/03/20 10:47:00 EST, Tablet, [facility] #[id number], 183, cm, 05/03/20 10:28:00 EST, Height, 77.5, [...] Polyp of rectum(Confirmed)4 Active Syncope(Confirmed) Active 1colo 33650jcy 2000 negative ycmnaejg22983; repeat 77087mksj 2017 Social History Social History Type Response Smoking Status Never smoker entered on: 09/28/15 Sex Male Medical Equipment Implanted Date:07/15/19 Target Site:Groin Right Description Quantity MRI Company Model PATCH HERNIA PROLENE MEDIUM - [facility]C 1 Ethico n/j&j Wound Closure Unknown (ETPHSM6) FORTINO: No Information Assigning Authority: FDA
--- OUTSIDE RECORDS SUMMARY | 2022-06-20 19:50 | XMS_ITS | Continuity of Care Document ---
:1965 Author Organization [facility] Adult Address [address] [place] [address]- Care Team Providers Name Role Phone Veronica DENIS, Fernando Kwok Primary Care Physician Encounter [facility] Date(s): 08/10/21 - 09/09/21 [facility] Adult [address] [place] [address]- Allergies, Adverse Reactions, Alerts No Known Allergies [...] tablet, 6 Refills, Maintenance, 06/29/21 8:02:00 EST, [facility] #[id number], Partial fill upon patient request if the prescription is for a schedule II opioid drug., 183, cm, 06/29/21 7:54:00 EST, Height,... Start Date: 06/29/21 Status: Orderedfolic acid 1 mg oral tablet 1 mg, 1, tablet, By Mouth, Daily, # 30 tablet, Refills 11, Tot. Refills 11, Maintenance, 04/28/21 10:47:00 EST, Route to Pharmacy Electronically, [facility] #[id number], 183, cm, 04/25/21 15:05:00EST, Height, 77.5, kg, 11/08/19 18:47:00 EDT, Dry... Start Date: 04/28/21 Stop Date: 04/23/22 Status: Orderedlactulose 10 gm/15 ml oral syrup 30 mL = 20 Gm, By Mouth, 3 times a day, # 480 mL, 11 Refills, Maintenance, 04/25/21 15:06:00 EST, Syrup, [facility] #[id number], Partial fill upon patient request if the prescription is for a schedule II opioid drug., 30 mL By Mouth 3 times a day... Start Date: 04/25/21 Status: OrderedLasix 40 mg oral tablet 40 mg, 1, tablet, By Mouth, Daily, # 30 tablet, Refills 11, Tot. Refills 11, Maintenance, 04/25/21 15:06:00 EST, Route to Pharmacy Electronically, [facility] #[id number], Partial fill upon patientrequest if the prescription is for a schedule II... Start Date: 04/25/21 Status: OrderedLexapro 10 mg oral tablet 1 tablet = 10 mg, By Mouth, Daily, # 30 tablet, 11 Refills, Maintenance, 06/19/21 11:21:00 EST, Tablet, [facility] #[id number], Partial fill upon patient request if the prescription is for a schedule II opioid drug., 183, cm, 04/25/21 15:05:00 ES... Start Date: 06/19/21 Stop Date: 06/14/22 Status: Orderedmagnesium oxide 400 mg oral tablet 1 tablet = 400 mg, By Mouth, Daily, for 30 days, # 30 tablet, 11 Refills, Acute 04/23/22 10:49:00 EST, 04/28/21 10:49:00 EST, Tablet, [facility] #[id number], Partial fill upon patient request if the [...] 08/04/21 10:46:00 EDT, Route to Pharmacy Electronically, [facility] #[id number], Partial fill upon patient request if the [...] 08/22/21 10:48:00 EDT, Route to Pharmacy Electronically, [id number], [facility] #[id number], 183, cm, 08/22/21 10:40:00 EDT, Height, 77.5, kg, ... Start Date: 08/22/21 Status: Orderedspironolactone 100 mg oral tablet 100 mg, 1, tablet, By Mouth, Daily, # 30 tablet, Refills 11, Tot. Refills 11, Maintenance, 04/25/21 15:06:00 EST, Route to Pharmacy Electronically, [facility] #[id number], Partial fill upon patient request if the prescription is for a schedule II... Start Date: 04/25/21 Status: OrderedVitamin B12 1000 mcg oral tablet 1 tablet = 1,000 mcg, By Mouth, Daily, # 30 tablet, 11 Refills, Maintenance, 04/25/21 15:06:00 EST, Tablet, [facility] #[id number], 183, cm, 04/25/21 15:05:00 EST, Height, 77.5, [...] moderate(Confirmed) Syncope(Confirmed) Active Vertigo(Confirmed) 02/15/11 Active 1colo 54663rxml 94508kcv 2001 negative zytwtogw95478; repeat 44494njcz 14195xihv 2018 Social History Social History Type Response Smoking Status Never smoker entered on: 09/28/15 Sex Male Medical Equipment Implanted Date:07/15/19 Target Site:Groin Right Description Quantity MRI Company Model PATCH HERNIA PROLENE MEDIUM - [facility] 1 Ethico n/j&j Wound Closure Unknown (ETPHSM6) FORTINO: No Information Assigning Authority: FDA
--- OUTSIDE RECORDS SUMMARY | 2022-06-20 19:50 | XMS_ITS | Continuity of Care Document ---
:1965 Author Organization [facility] [place] Adult Address [address] [place] [address]- Care Team Providers Name Role Phone Veronica DENIS, Fernando Kwok Primary Care Physician Encounter [facility] Date(s): 12/01/19 - 12/31/19 [facility] [place] [address] [place] [address]- [facility] Attending Physician: Admtr, Ar8 Allergies, Adverse Reactions, [...] 08/20/19 8:46:00 EDT, Route to Pharmacy Electronically, [id number], [facility] #[id number], 183, cm, 07/24/19 10:31:00 EST, Height... Start [...] 11/10/19 10:53:00 EDT, Route to Pharmacy Electronically, [facility], 183, cm, 11/10/19 9:27:00 EDT, Height, 77.5, kg, 11/08/19 18:47:00 EDT, Dry Weight Start Date: 11/10/19 Status: OrderedNasacort 0 Refills, Maintenance, 09/28/15 8:56:41 Start Date: 09/28/15 Status: Orderedpantoprazole 40 mg oral delayed release tablet 1 tablet = 40 mg, By Mouth, Daily, # 30 tablet, 11 Refills, Maintenance, 08/20/19 8:46:00 EDT, Tablet, 183, cm, 07/24/19 10:31:00 EST, Height, 78.5, kg, 07/15/19 6:56:00 EST, Dry Weight Start Date: 08/20/19 Status: OrderedpredniSONE 20 mg oral tablet See Instructions, 2 tablets daily for 5 days and then 1 tablet daily for 5 days, # 15 tablet, 0 Refills, Maintenance, 12/01/19 7:32:00 EDT, [facility] #43247, 183, cm, 12/01/19 7:19:00 EDT, Height, 77.5, kg, 11/08/19 18:47:00 EDT, Dry Weight Start Date: 12/01/19 Status: OrderedProAir HFA 90 mcg/inh inhalation aerosol with adapter 2, puffs, Inhalation, 4 times a day, for 30 days, # 1 each, Refills 11, Tot. Refills 11, Hard Stop 08/14/20 8:46:00 EDT, 08/20/19 8:46:00 EDT, Route to Pharmacy Electronically, [id number], [facility] #[id number], 183, cm... Start Date: 08/20/19 Stop Date: 08/14/20 Status: Orderedpyridoxine 100 mg oral tablet 1 tablet = 100 mg, By Mouth, Daily, # 30 tablet, 0 Refills, Maintenance, 11/10/19 10:52:00 EDT, Tablet, [facility], 183, cm, 11/10/19 9:27:00 EDT, Height, 77.5, kg, 11/08/19 18:47:00 EDT,Dry Weight Start Date: 11/10/19 Status: Orderedsertraline 100 mg oral tablet 1 tablet = 100 mg, By Mouth, Daily, # 30 tablet, 11 Refills, Maintenance, 08/20/19 8:45:00 EDT, Tablet, [facility] #29326, 183, cm, 07/24/19 10:31:00 EST, Height, 78.5, kg, 07/15/19 6:56:00 EST, Dry Weight Start Date: 08/20/19 Status: Orderedthiamine 100 mg oral tablet 100 mg, 1, tablet, By Mouth, Daily, # 30 tablet, Refills 0, Tot. Refills 0, Maintenance, 11/10/19 10:52:00 EDT, Route to Pharmacy Electronically, [facility], 183, cm, 11/10/19 9:27:00 EDT, Height, 77.5, kg, 11/08/19 18:47:00 EDT, Dry Weight Start Date: 11/10/19 Status: OrderedVitamin B12 1000 mcg oral tablet 1 tablet = 1,000 mcg, By Mouth, Daily, # 30 tablet, 11 Refills, Maintenance, 08/20/19 8:46:00 EDT, Tablet, [facility] #53777, 183, cm, 07/24/19 10:31:00 EST, Height, 78.5, [...] Polyp of rectum(Confirmed)4 Active Syncope(Confirmed) Active 1colo 79223axw 2000 negative hztztwhh68916; repeat 2017 Social History Social History Type Response Smoking Status Never smoker entered on: 09/28/15 Sex Male Medical Equipment Implanted Date:07/15/19 Target Site:Groin Right Description Quantity MRI Company Model PATCH HERNIA PROLENE MEDIUM - [facility] 1 Ethico n/j&j Wound Closure Unknown (ETPHSM6) FORTINO: No Information Assigning Authority: FDA
--- OUTSIDE RECORDS SUMMARY | 2022-06-20 19:50 | XMS_ITS | Continuity of Care Document ---
:1965 Author Organization [facility] Adult Address [address] [place] [address]- Care Team Providers Name Role Phone Veronica DENIS, Fernando Kwok Primary Care Physician Encounter [facility] Date(s): 08/26/20 - 09/25/20 [facility] [address] [place] [address]- Attending Physician: Admtr, Ar8 Allergies, Adverse Reactions, [...] 05/03/20 10:47:00 EST, Route to Pharmacy Electronically, [facility] #[id number], 183, cm, 05/03/20 10:28:00EST, Height, 77.5, kg, 11/08/19 18:47:00 EDT, Dry... Start Date: 05/03/20 Stop Date: 04/28/21 Status: Orderedlactulose 10 gm/15 ml oral syrup 30 mL = 20 Gm, By Mouth, 3 times a day, # 480 mL, 11 Refills, Maintenance, 05/03/20 11:06:00 EST, Syrup, [facility] #[id number], Partial fill upon patient request if the prescription is for a schedule II opioid drug., 30 mL By Mouth 3 times a day... Start Date: 05/03/20 Status: OrderedLasix 40 mg oral tablet 40 mg, 1, tablet, By Mouth, Daily, # 30 tablet, Refills 11, Tot. Refills 11, Maintenance, 05/03/20 10:48:00 EST, Route to Pharmacy Electronically, [facility] #[id number], Partial fill upon patientrequest if the prescription is for a schedule II... Start Date: 05/03/20 Status: OrderedLexapro 10 mg oral tablet 1 tablet = 10 mg, By Mouth, Daily, # 30 tablet, 11 Refills, Maintenance, 06/24/20 11:21:00 EST, Tablet, [facility] #[id number], Partial fill upon patient request if the prescription is for a schedule II opioid drug., 183, cm, 06/24/20 11:05:00 ES... Start Date: 06/24/20 Stop Date: 06/19/21 Status: Orderedmagnesium oxide 400 mg oral tablet 1 tablet = 400 mg, By Mouth, Daily, for 30 days, # 30 tablet, 11 Refills, Acute 04/28/21 10:49:00 EST, 05/03/20 10:49:00 EST, Tablet, [facility] #[id number], Partial fill upon patient request if the [...] 05/03/20 10:48:00 EST, Route to Pharmacy Electronically, [facility] #[id number], Partial fill upon patient request if the prescription is for a schedule II... Start Date: 05/03/20 Status: OrderedVitamin B12 1000 mcg oral tablet 1 tablet = 1,000 mcg, By Mouth, Daily, # 30 tablet, 11 Refills, Maintenance, 05/03/20 10:47:00 EST, Tablet, [facility] #[id number], 183, cm, 05/03/20 10:28:00 EST, Height, 77.5, [...] Polyp of rectum(Confirmed)6 Active Syncope(Confirmed) Active 1colo 96117abdx 94410juu 2001 negative rvlprnvt22989; repeat 99938koaa 58779jzcd 2018 Procedures Procedure Date Related Diagnosis Body [...]
--- OUTSIDE RECORDS SUMMARY | 2022-06-20 19:50 | XMS_ITS | Continuity of Care Document ---
:1965 Author Organization [facility] Adult Address [address] [place] [address]- Care Team Providers Name Role Phone Fernando Martin MD Primary Care Physician Encounter [facility] Date(s): 05/18/22 - 06/17/22 [facility] [address] [place] [address]- Attending Physician: Admtr, Ar8 Allergies, Adverse Reactions, Alerts No Known Allergies [...] tablet, 5 Refills, Maintenance, 01/29/22 11:05:00 EDT, [facility] #[id number], 183, cm, 01/17/22 9:17:00 EDT, Height Start Date: 01/29/22 Status: Orderedescitalopram 20 mg oral tablet 1 tablet = 20 mg, By Mouth, Daily, # 30 tablet, 11 Refills, Maintenance, 01/17/22 9:39:00 EDT, Tablet, [facility] #[id number], Partial fill upon patient request if the prescription is for a schedule II opioid drug., 183, cm, 01/17/22 9:17:00 EDT,... Start Date: 01/17/22 Stop Date: 01/12/23 Status: Orderedfolic acid 1 mg oral tablet 1 mg, 1, tablet, By Mouth, Daily, # 30 tablet, Refills 5, Tot. Refills 5, Maintenance, 05/11/22 9:41:00 EST, Route to Pharmacy Electronically, [facility] #37382, 183, cm, 04/03/22 10:51:00 EST, Height Start Date: 05/11/22 Stop Date: 11/07/22 Status: OrderedK-Tab 20 mEq oral tablet, extended release 1 tablet = 20 mEq, By Mouth, Daily, # 30 tablet, 11 Refills, Maintenance, 04/03/22 11:09:00 EST, [facility] #14061, Partial fill upon patient request if the [...] 05/08/22 10:26:00 EST, Route to Pharmacy Electronically, [facility] #46211, Partial fill upon patient request if the prescription is for a schedule II op... Start Date: 05/08/22 Status: OrderedLevoxyl 0.025 mg oral tablet 1 tablet = 25 mcg, By Mouth, Daily, # 30 tablet, 11 Refills, Maintenance, 01/17/22 9:40:00 EDT, Tablet, [facility] #36309, Partial fill upon patient request if the prescription is for a schedule II opioid drug., 183, cm, 01/17/22 9:17:00 EDT... Start Date: 01/17/22 Status: Orderedmagnesium oxide 400 mg oral tablet 1 tablet = 400 mg, By Mouth, Daily, for 30 days, APPOINTMENT NEEDED FOR FURTHER REFILLS, # 30 tablet, 2 Refills, Acute 08/29/22 12:08:00 EDT, 05/31/22 12:08:00 EST, [facility] #[id number], Partialfill upon patient request if the prescription is... Start Date: 05/31/22 Stop Date: 08/29/22 Status: Orderedmidodrine 5 mg oral tablet 5 mg, 1, tablet, By Mouth, Daily, # 30 tablet, Refills 1, Tot. Refills 1, Maintenance, 05/31/22 10:58:00 EST, Route to Pharmacy Electronically, [facility] #95126, Partial fill upon patient request if the [...] 01/17/22 9:33:00 EDT, Route to Pharmacy Electronically, [id number], [facility] #[id number], 183, cm, 01/17/22 9:17:00 EDT, Height Start Date: 01/17/22 Status: OrderedVentolin HFA 108 mcg/inh inhalation aerosol with adapter 2 puffs, Inhalation, Every 4 hours, # 8.5 Gm, 11 Refills, Maintenance, 03/30/22 12:03:00 EST, [facility] #07974, Partial fill upon patient request if the prescription is for a schedule II opioid drug., 183, cm, 01/17/22 9:17:00 EDT, Height Start Date: 03/30/22 Status: Orderedvitamin A 8000 u oral capsule 1 capsule = 8,000 units, By Mouth, Daily, # 100 capsule, 11 Refills, Maintenance, 01/03/22 13:40:00 EDT, [facility] #21553, Partial fill upon patient request if the prescription is for a schedule II opioid drug., 183, cm, 11/02/21 10:11:00 E... Start Date: 01/03/22 Status: OrderedVitamin B12 1000 mcg oral tablet 1 tablet = 1,000 mcg, By Mouth, Daily, # 30 tablet, 11 Refills, Maintenance, 04/25/21 15:06:00 EST, Tablet, [facility] #31851, 183, cm, 04/25/21 15:05:00 EST, Height, 77.5, [...] 04/03/22 11:15:00 EST, Route to Pharmacy Electronically, [facility] #[id number], Partial fill upon patient request if the [...] Confirmed Active Vertigo Confirmed 02/15/11 Active 1colo 97902asfr 65604rwg 2001 negative gtbgwmag15953; repeat 04738ypzg [id number] 2018 Procedures Procedure Date Related Diagnosis Body Site Status Upper GI (gastrointestinal) endoscopy 07/27/21 Completed Upper gastrointestinal endoscopy 05/31/20 Completed Social History Social History Type Response Smoking Status Never smoker entered on: 09/28/15 Sex Male Implantable Device List Procedure Provider Procedure Date Device Type Site Repair Hernia Inguinal Galster DOCyndi 07/15/19 Unknown Groin Right Open Device Serial Lot or Manufacturing Expiration Distinct MRI Implan table Assigning Identifier Number Batch Date Date Identification Safety Status Authority Number Code Unknown Unknown [id number] Unknown 09/16/22 Unknown Unknown Active Unknown 2 Note Event Display: Laboratory Result Scanned Authored Date: Event Display: Non BH Lab Results Authored Date: Lluvia Zapata RN: PERFORM, SIGN, VERIFY Event Display: Case Management Discharge Plan Authored Date: Patient: FAM CHI Age: 54 years Sex: Male : 1965 Associated Diagnoses: None Author: Lluvia Zapata RN Care Management Discharge Call Note Discharge date 10/26/2019 Date of contact 10/27/2019 Diagnosis LEFT ANKLE PAIN Discharge instructions were reviewed with the patient? Yes Medication reconciliation performed Yes Looks like you were recently discharged from the hospital (ED), how are you feeling? left drop foot having trouble walking Please tell me the problem or condition that brought you to the hospital (ED)? rolled left ankle Were you given any prescriptions to fill? Yes. Do you understand how to take your medication? Yes Do you have an appointment already scheduled with your PCP? Yes Is date appropriate: erf tomorrow af. Home Care Services requested? No Have there been any changes in your condition since discharge? No Do you have someone at home that is able to help you? Yes Event Display: Non BH Lab Results Authored Date: Event Display: Cardiology Office Note, Non-BH Authored Date: Event Display: Non BH Cardiovascular Results Authored Date: EKG study Event Display: EKG Authored Date: Event Display: EKG Authored Date: Patient Care team information Care Team PersonnelName: Veronica DENIS, Fernando Kwok Position: [facility] Primary Care Physician Member Role: PCP Address: Address: [address] [place] [address]- Name: Leoncio Bowers RN Position: [facility] RN Member Role: Primary Care Nurse Care Team Related PersonsName: MINDY MEIER Address: [address] [address] Name: LEONCIO CHI Address: home [facility]
--- OUTSIDE RECORDS SUMMARY | 2022-06-20 19:50 | XMS_ITS | Continuity of Care Document ---
:1965 Author Organization [facility] Adult Address [address] [place] [address]- Care Team Providers Name Role Phone Fernando Martin MD Primary Care Physician [place] [facility] [place] 07[place]19 [facility] [address] [place] [address]- [facility] Attending Physician: Yusra Lackey NP Referring Physician: Fernando Martin MD Allergies, [...] 09/29/18 8:16:03 EDT, Route to Pharmacy Electronically, [id number], [facility] [id number] Start Date: 09/29/18 Stop Date: 09/24/19 Status: [...] 03/30/19 15:17:48 EST, Route to Pharmacy Electronically, [id number], [facility] #[id number] Start Date: 03/30/19 Stop Date: 03/24/20 Status: OrderedSEROquel 25 mg oral tablet 25 mg, 1, tablet, By Mouth, 2 times a day, # 60 tablet, Refills 1, Tot. Refills 1, Maintenance, 12/25/18 8:04:20 EDT, Route to Pharmacy Electronically, [id number], [facility] #[id number] Start Date: 12/25/18 Stop Date: 02/23/19 Status: [...] Daily, # 30 tablet, 11 Refills, Maintenance, 11/11/19 15:17:45 EST, Tablet Start Date: 03/30/19 Status: [...] Polyp of rectum(Confirmed)4 Active Syncope(Confirmed) Active 1colo 38712dol 2000 negative [id number]; repeat 81124lflf 2017 Vital Signs Most recent to oldest [Reference Range]: 1 Height 183 cm (07/24/19 6:56 AM) Weight 79.5 kg (07/24/19 6:56 AM) Oxygen Saturation [94-100 %] 97 % (07/24/19 6:56 AM) Pulse Rate [55-90 bpm] 56 bpm (07/24/19 6:56 AM) Body Mass Index [18.5-24.99] 23.74 (07/24/19 6:56 AM) Blood Pressure [90-138/55-84 mm Hg] 134/82 mm Hg (07/24/19 6:56 AM) Temperature [96.8-100.4 DegF] 98.4 DegF (07/24/19 6:56 AM) Temperature Route Oral (07/24/19 6:56 AM) Social History Social History Type Response Smoking Status Never smoker entered on: 09/28/15 Sex Male Medical Equipment Implanted Date:07/15/19 Target Site:Groin Right Description Quantity MRI Company Model PATCH HERNIA PROLENE MEDIUM - ETHC 1 Ethico n/j&j Wound Closure Unknown (ETPHSM6) FORTINO: No Information Assigning Authority: FDA
--- OUTSIDE RECORDS SUMMARY | 2022-06-20 19:50 | XMS_ITS | Continuity of Care Document ---
:1965 Author Organization [facility] Adult Address [address] [place] [address]- Care Team Providers Name Role Phone Fernando Martin MD Primary Care Physician Encounter [facility] Date(s): 11/24/21 - 12/24/21 [facility] [address] [place] [address]- Allergies, Adverse Reactions, Alerts No Known Allergies [...] 30 tablet, 6 Refills, Maintenance, 06/29/21 8:02:00 [id number], Partial fill upon patient request if the prescription is for a schedule II opioid drug., 183, cm, 06/29/21 7:54:00 EST, Height,... Start Date: 06/29/21 Status: Orderedfolic acid 1 mg oral tablet 1 mg, 1, tablet, By Mouth, Daily, # 30 tablet, Refills 11, Tot. Refills 11, Maintenance, 04/28/21 10:47:00 EST, Route to Pharmacy Electronically, [facility] #[id number], 183, cm, 04/25/21 15:05:00EST, Height, 77.5, kg, 11/08/19 18:47:00 EDT, Dry... Start Date: 04/28/21 Stop Date: 04/23/22 Status: OrderedLasix 40 mg oral tablet 40 mg, 1, tablet, By Mouth, Daily, # 30 tablet, Refills 11, Tot. Refills 11, Maintenance, 04/25/21 15:06:00 EST, Route to Pharmacy Electronically, [facility] #[id number], Partial fill upon patientrequest if the prescription is for a schedule II... Start Date: 04/25/21 Status: OrderedLexapro 10 mg oral tablet 1 tablet = 10 mg, By Mouth, Daily, # 30 tablet, 11 Refills, Maintenance, 06/19/21 11:21:00 EST, Tablet, [facility] #[id number], Partial fill upon patient request if the prescription is for a schedule II opioid drug., 183, cm, 04/25/21 15:05:00 ES... Start Date: 06/19/21 Stop Date: 06/14/22 Status: Orderedmagnesium oxide 400 mg oral tablet 1 tablet = 400 mg, By Mouth, Daily, for 30 days, # 30 tablet, 11 Refills, Acute 04/23/22 10:49:00 EST, 04/28/21 10:49:00 EST, Tablet, [facility] #[id number], Partial fill upon patient request if the prescription is for a schedule II opioid drug.,... Start Date: 04/28/21 Stop Date: 04/23/22 Status: Orderedmeclizine 25 mg oral tablet 1 tablet, By Mouth, 3 times a day, PRN NEEDED FOR DIZZINESS, # 30 tablet, 0 Refills, [facility] #[id number], 183, cm, 08/22/21 10:40:00 EDT, Height, 77.5, [...] 08/04/21 10:46:00 EDT, Route to Pharmacy Electronically, [facility] #[id number], Partial fill upon patient request if the [...] 08/22/21 10:48:00 EDT, Route to Pharmacy Electronically, [id number], [facility] #[id number], 183, cm, 08/22/21 10:40:00 EDT, Height, 77.5, kg, ... Start Date: 08/22/21 Status: Orderedspironolactone 100 mg oral tablet 100 mg, 1, tablet, By Mouth, Daily, # 30 tablet, Refills 11, Tot. Refills 11, Maintenance, 04/25/21 15:06:00 EST, Route to Pharmacy Electronically, [facility] #[id number], Partial fill upon patient request if the prescription is for a schedule II... Start Date: 04/25/21 Status: Orderedvitamin A 15116 u oral capsule 1 capsule = 25,000 units, By Mouth, Daily, # 30 capsule, 11 Refills, Maintenance, 12/11/21 12:22:00 EDT, Capsule, [facility] #[id number], Partial fill upon patient request if the prescription is for a schedule II opioid drug., 183, cm, 11/02/21 1... Start Date: 12/11/21 Status: OrderedVitamin B12 1000 mcg oral tablet 1 tablet = 1,000 mcg, By Mouth, Daily, # 30 tablet, 11 Refills, Maintenance, 04/25/21 15:06:00 EST, Tablet, [facility] #[id number], 183, cm, 04/25/21 15:05:00 EST, Height, 77.5, [...] Active Syncope(Confirmed) Active Vertigo(Confirmed) 02/15/11 Active 1colo 10562wlht 23668hgp 2001 negative tymgbvju66001; repeat 29185jqij 30765obsa 2018 Social History Social History Type Response Smoking Status Never smoker entered on: 09/28/15 Sex Male Medical Equipment Implanted Date:07/15/19 Target Site:Groin Right Description Quantity MRI Company Model PATCH HERNIA PROLENE MEDIUM - ETHC 1 Ethico n/j&j Wound Closure Unknown (ETPHSM6) FORTINO: No Information Assigning Authority: FDA
--- OUTSIDE RECORDS SUMMARY | 2022-06-20 19:50 | XMS_ITS | Continuity of Care Document ---
:1965 Author Organization [facility] Adult Address [address] [place] [address]- Care Team Providers Name Role Phone Fernando Martin MD Primary Care Physician Encounter [facility] [place] Date(s): 04/03/22 - 04/10/22 [facility] [address] [place] [address]- Attending Physician: Fernando Martin MD Allergies, Adverse [...] tablet, 5 Refills, Maintenance, 01/29/22 11:05:00 EDT, [facility] #[id number], 183, cm, 01/17/22 9:17:00 EDT, Height Start Date: 01/29/22 Status: Orderedescitalopram 20 mg oral tablet 1 tablet = 20 mg, By Mouth, Daily, # 30 tablet, 11 Refills, Maintenance, 01/17/22 9:39:00 EDT, Tablet, [facility] #[id number], Partial fill upon patient request if the prescription is for a schedule II opioid drug., 183, cm, 01/17/22 9:17:00 EDT,... Start Date: 01/17/22 Stop Date: 01/12/23 Status: Orderedfolic acid 1 mg oral tablet 1 mg, 1, tablet, By Mouth, Daily, # 30 tablet, Refills 11, Tot. Refills 11, Maintenance, 04/28/21 10:47:00 EST, Route to Pharmacy Electronically, [facility] #[id number], 183, cm, 04/25/21 15:05:00EST, Height, 77.5, kg, 11/08/19 18:47:00 EDT, Dry... Start Date: 04/28/21 Stop Date: 04/23/22 Status: OrderedK-Tab 20 mEq oral tablet, extended release 1 tablet = 20 mEq, By Mouth, Daily, # 30 tablet, 11 Refills, Maintenance, 04/03/22 11:09:00 EST, [facility] #[id number], Partial fill upon patient request if the [...] 04/25/21 15:06:00 EST, Route to Pharmacy Electronically, [facility] #[id number], Partial fill upon patientrequest if the prescription is for a schedule II... Start Date: 04/25/21 Status: OrderedLevoxyl 0.025 mg oral tablet 1 tablet = 25 mcg, By Mouth, Daily, # 30 tablet, 11 Refills, Maintenance, 01/17/22 9:40:00 EDT, Tablet, [facility] #[id number], Partial fill upon patient request if the prescription is for a schedule II opioid drug., 183, cm, 01/17/22 9:17:00 EDT... Start Date: 01/17/22 Status: Orderedmagnesium oxide 400 mg oral tablet 1 tablet = 400 mg, By Mouth, Daily, for 30 days, # 30 tablet, 11 Refills, Acute 04/23/22 10:49:00 EST, 04/28/21 10:49:00 EST, Tablet, [facility] #[id number], Partial fill upon patient request if the [...] 01/17/22 9:33:00 EDT, Route to Pharmacy Electronically, [id number], [facility] #[id number], 183, cm, 01/17/22 9:17:00 EDT, Height Start Date: 01/17/22 Status: OrderedVentolin HFA 108 mcg/inh inhalation aerosol with adapter 2 puffs, Inhalation, Every 4 hours, # 8.5 Gm, 11 Refills, Maintenance, 03/30/22 12:03:00 EST, [facility] #[id number], Partial fill upon patient request if the prescription is for a schedule II opioid drug., 183, cm, 01/17/22 9:17:00 EDT, Height Start Date: 03/30/22 Status: Orderedvitamin A 8000 u oral capsule 1 capsule = 8,000 units, By Mouth, Daily, # 100 capsule, 11 Refills, Maintenance, 01/03/22 13:40:00 EDT, [facility] #[id number], Partial fill upon patient request if the prescription is for a schedule II opioid drug., 183, cm, 11/02/21 10:11:00 E... Start Date: 01/03/22 Status: OrderedVitamin B12 1000 mcg oral tablet 1 tablet = 1,000 mcg, By Mouth, Daily, # 30 tablet, 11 Refills, Maintenance, 04/25/21 15:06:00 EST, Tablet, [facility] #[id number], 183, cm, 04/25/21 15:05:00 EST, Height, 77.5, [...] 04/03/22 11:15:00 EST, Route to Pharmacy Electronically, [facility] #[id number], Partial fill upon patient request if the [...] Confirmed Active Vertigo Confirmed 02/15/11 Active 1colo 29981xghw 59934tki 2000 negative zlstwygt94816; repeat 44710aoqj 80596jnst 2018 Vital Signs Most recent to oldest [Reference Range]: 1 Height 183 cm (04/03/22 10:51 AM) Weight 93.7 kg (04/03/22 10:51 AM) Oxygen Saturation [94-100 %] 97 % (04/03/22 10:51 AM) Pulse Rate [55-90 bpm] 86 bpm (04/03/22 10:51 AM) Body Mass Index [18.5-24.99 kg/m2] 27.98 kg/m2 *H* (04/03/22 10:51 AM) Mode of Delivery (Oxygen) Room air (04/03/22 10:51 AM) Blood pressure sites Arm, left (04/03/22 10:51 AM) Weight Obtained Via Standing scale (04/03/22 10:51 AM) Social History Social History Type Response Smoking Status Never smoker entered on: 09/28/15 Sex Male Implantable Device List Procedure Provider Procedure Date Device Type Site Repair Hernia Inguinal Kunjakob yCndi 07/15/19 Unknown Groin Right Open Device Serial Lot or Manufacturing Expiration Distinct MRI Implan table Assigning Identifier Number Batch Date Date Identification Safety Status Authority Number Code Unknown Unknown [id number] Unknown 09/16/22 Unknown Unknown Active Unknown 2 Patient Care team information Care Team PersonnelName: Veronica DENIS, Fernando Kwok Position: [facility] Primary Care Physician Member Role: PCP Address: Address: [address] [place] [address]- Name: Leoncio Bowers RN Position: [facility] RN Member Role: Primary Care Nurse Care Team Related PersonsName: MINDY MEIER Address: [address] [address] Name: LEONCIO CHI Address: home [facility]
--- OUTSIDE RECORDS SUMMARY | 2022-06-20 19:50 | XMS_ITS | Continuity of Care Document ---
:1965 Author Organization [facility] Adult Address [address] [place] [address]- Care Team Providers Name Role Phone Fernando Martin MD Primary Care Physician Encounter [facility] Date(s): 04/23/19 - 05/23/19 [facility] Adult [address] [place] [address]- [facility] Attending Physician: Sae Chinchilla MD Allergies, Adverse Reactions, Alerts Substance Reaction [...] 09/29/18 8:16:03 EDT, Route to Pharmacy Electronically, [id number], [facility] [address] Start Date: 09/29/18 Stop Date: 09/24/19 Status: OrderedNasacort 0 Refills, Maintenance, 09/28/15 8:56:41 [...] 03/30/19 15:17:48 EST, Route to Pharmacy Electronically, [id number], [facility] #[id number] Start Date: 03/30/19 Stop Date: 03/24/20 Status: OrderedSEROquel 25 mg oral tablet 25 mg, 1, tablet, By Mouth, 2 times a day, # 60 tablet, Refills 1, Tot. Refills 1, Maintenance, 12/25/18 8:04:20 EDT, Route to Pharmacy Electronically, [id number], [facility] #[id number] Start Date: 12/25/18 Stop Date: 02/23/19 Status: [...] Polyp of rectum(Confirmed)4 Active Syncope(Confirmed) Active 1colo 03233dxn 2000 negative vowwzmkj68111; repeat 32995fnkv 2017 Social History Social History Type Response Smoking Status Never smoker entered on: 09/28/15 Sex Male
--- OUTSIDE RECORDS SUMMARY | 2022-06-20 19:50 | XMS_ITS | Continuity of Care Document ---
:1965 Author Organization [facility] Adult Address [address] [place] [address]- Care Team Providers Name Role Phone Veronica DENIS, Fernando Kwok Primary Care Physician Encounter [facility] Date(s): 04/19/21 - 05/19/21 [facility] [address] [place] [address]- Allergies, Adverse Reactions, Alerts Substance Reaction Severity [...] 8.5 Gm, 0 Refills, 05/01/21 13:02:00 EST, [facility]#[id number], 25, 2 puffs Inhalation 4 times a day, 183, cm, 05/01/21 6:58:00 EST, Height, 77.5, kg, 11/08/19 18:47:00 EDT, Dry Weight Start Date: 05/01/21 Status: Orderedatorvastatin 10 mg oral tablet 1 tablet = 10 mg, By Mouth, Daily, # 30 tablet, 0 Refills, Maintenance, 05/01/21 7:15:00 EST, [facility] #[id number], Partial fill upon patient request if the prescription is for a schedule II opioid drug., 183, cm, 05/01/21 6:58:00 EST, Height,... Start Date: 05/01/21 Status: Orderedfolic acid 1 mg oral tablet 1 mg, 1, tablet, By Mouth, Daily, # 30 tablet, Refills 11, Tot. Refills 11, Maintenance, 04/28/21 10:47:00 EST, Route to Pharmacy Electronically, [facility] #[id number], 183, cm, 04/25/21 15:05:00EST, Height, 77.5, kg, 11/08/19 18:47:00 EDT, Dry... Start Date: 04/28/21 Stop Date: 04/23/22 Status: Orderedlactulose 10 gm/15 ml oral syrup 30 mL = 20 Gm, By Mouth, 3 times a day, # 480 mL, 11 Refills, Maintenance, 04/25/21 15:06:00 EST, Syrup, [facility] #[id number], Partial fill upon patient request if the prescription is for a schedule II opioid drug., 30 mL By Mouth 3 times a day... Start Date: 04/25/21 Status: OrderedLasix 40 mg oral tablet 40 mg, 1, tablet, By Mouth, Daily, # 30 tablet, Refills 11, Tot. Refills 11, Maintenance, 04/25/21 15:06:00 EST, Route to Pharmacy Electronically, [facility] #[id number], Partial fill upon patientrequest if the prescription is for a schedule II... Start Date: 04/25/21 Status: OrderedLexapro 10 mg oral tablet 1 tablet = 10 mg, By Mouth, Daily, # 30 tablet, 11 Refills, Maintenance, 06/19/21 11:21:00 EST, Tablet, [facility] #[id number], Partial fill upon patient request if the prescription is for a schedule II opioid drug., 183, cm, 04/25/21 15:05:00 ES... Start Date: 06/19/21 Stop Date: 06/14/22 Status: Orderedmagnesium oxide 400 mg oral tablet 1 tablet = 400 mg, By Mouth, Daily, for 30 days, # 30 tablet, 11 Refills, Acute 04/23/22 10:49:00 EST, 04/28/21 10:49:00 EST, Tablet, [facility] #[id number], Partial fill upon patient request if the [...] 04/25/21 15:06:00 EST, Route to Pharmacy Electronically, [facility] #[id number], Partial fill upon patient request if the prescription is for a schedule II... Start Date: 04/25/21 Status: OrderedVitamin B12 1000 mcg oral tablet 1 tablet = 1,000 mcg, By Mouth, Daily, # 30 tablet, 11 Refills, Maintenance, 04/25/21 15:06:00 EST, Tablet, [facility] #[id number], 183, cm, 04/25/21 15:05:00 EST, Height, 77.5, [...] Polyp of rectum(Confirmed)6 Active Syncope(Confirmed) Active 1colo 61962hhcd 85302vzl 2001 negative evinbrdx12862; repeat 18181ohcw 32971dymt 2018 Social History Social History Type Response Smoking Status Never smoker entered on: 09/28/15 Sex Male Medical Equipment Implanted Date:07/15/19 Target Site:Groin Right Description Quantity MRI Company Model PATCH HERNIA PROLENE MEDIUM - ETHC 1 [employer]ico n/j&j Wound Closure Unknown (ETPHSM6) FORTINO: No Information Assigning Authority: FDA
--- OUTSIDE RECORDS SUMMARY | 2022-06-20 19:50 | XMS_ITS | Continuity of Care Document ---
:1965 Author Organization [facility] Adult Address [address] [place] [address]- Care Team Providers Name Role Phone Veronica DENIS, Fernando Kwok Primary Care Physician Encounter [facility] [place] Date(s): 06/29/19 - 07/06/19 [facility] [address] [place] [address]- [facility] Encounter Diagnosis Right groin pain (Discharge Diagnosis) - 06/29/19 Attending Physician: Carrol Edmonds NP Allergies, Adverse Reactions, [...] 09/29/18 8:16:03 EDT, Route to Pharmacy Electronically, [id number], [id number] Start Date: 09/29/18 Stop Date: 09/24/19 Status: [...] 03/30/19 15:17:48 EST, Route to Pharmacy Electronically, [id number], [facility] #[id number] Start Date: 03/30/19 Stop Date: 03/24/20 Status: OrderedSEROquel 25 mg oral tablet 25 mg, 1, tablet, By Mouth, 2 times a day, # 60 tablet, Refills 1, Tot. Refills 1, Maintenance, 12/25/18 8:04:20 EDT, Route to Pharmacy Electronically, [id number], [facility] #[id number] Start Date: 12/25/18 Stop Date: 02/23/19 Status: [...] Polyp of rectum(Confirmed)4 Active Syncope(Confirmed) Active 1colo 45175qus 2000 negative hprtltfl46300; repeat 54232sjtg 2017 Diagnosis Diagnosis Type Effective Dates Health Status Clinical In formant Service Right groin pain Discharge 06/29/19 Diagnosis Vital Signs Most recent to oldest [Reference Range]: 1 Height 182.88 cm (06/29/19 2:02 PM) Weight 78.1 kg (06/29/19 2:02 PM) Oxygen Saturation [94-100 %] 97 % (06/29/19 2:02 PM) Pulse Rate [55-90 bpm] 99 bpm *H* (06/29/19 2:02 PM) Body Mass Index [18.5-24.99] 23.35 (06/29/19 2:02 PM) Blood Pressure [90-138/55-84 mm Hg] 134/70 mm Hg (06/29/19 2:02 PM) Temperature [96.8-100.4 DegF] 98.3 DegF (06/29/19 2:02 PM) Mode of Delivery (Oxygen) Room air (06/29/19 2:02 PM) Blood pressure sites Arm, right (06/29/19 2:02 PM) Temperature Route Oral (06/29/19 2:02 PM) Weight Obtained Via Standing scale (06/29/19 2:02 PM) Social History Social History Type Response Smoking Status Never smoker entered on: 09/28/15 Sex Male
--- OUTSIDE RECORDS SUMMARY | 2022-06-20 19:50 | XMS_ITS | Continuity of Care Document ---
:1965 Author Organization [facility] Address [address] [place] [address]- Care Team Providers Name Role Phone Fernando Martin MD Primary Care Physician [id number] Date(s): 07/15/19 - 07/15/[address] [address]- [facility] Discharge Disposition: A-D/C Home Attending Physician: Cyndi Resendez DO Admitting Physician: Cyndi Resendez DO Referring Physician: Cyndi Resendez DO Allergies, Adverse Reactions, Alerts Substance Reaction Severity [...] 09/29/18 8:16:03 EDT, Route to Pharmacy Electronically, [id number], [facility] [id number] Start Date: 09/29/18 Stop Date: 09/24/19 Status: Orderedenoxaparin 120 mg/0.8 mL injectable solution = 120 mg, Subcutaneous Injection, Daily, # 5.6 mL, 0 Refills, Maintenance, 06/29/19 14:24:00 EST, Solution Start Date: 06/29/19 Stop Date: 07/06/19 Status: OrderedNasacort 0 Refills, Maintenance, 09/28/15 8:56:41 Start Date: 09/28/15 Status: OrderedoxyCODONE 5 mg oral tablet 5 mg, 1, tablet, By Mouth, Every 4 hours, PRN, # 15 tablet, Refills 0, Tot. Refills 0, Acute 07/18/19 9:27:00 EST, for pain, 07/15/19 9:27:00 EST, Route to Pharmacy Electronically, [facility]#[id number], Partial fill upon patient request, 183, c... Start Date: 07/15/19 Stop Date: 07/18/19 Status: Orderedpantoprazole 40 mg oral delayed release [...] 03/30/19 15:17:48 EST, Route to Pharmacy Electronically, [id number], [facility] #[id number] Start Date: 03/30/19 Stop Date: 03/24/20 Status: OrderedSEROquel 25 mg oral tablet 25 mg, 1, tablet, By Mouth, 2 times a day, # 60 tablet, Refills 1, Tot. Refills 1, Maintenance, 12/25/18 8:04:20 EDT, Route to Pharmacy Electronically, [id number], [facility] #[id number] Start Date: 12/25/18 Stop Date: 02/23/19 Status: [...] Polyp of rectum(Confirmed)4 Active Syncope(Confirmed) Active 1colo 55135gvc 2000 negative xcoozxyb70208; repeat 40669vlgg 2017 Procedures Procedure Date Related Diagnosis Body Site Status Open right inguinal hernia repair with 07/15/19 Completed mesh Vital Signs Most recent to oldest 1 2 3 [Reference Range]: Height 183 cm (07/15/19 6:56 AM) Oxygen Saturation [94-100 %] 95 % 93 % 96 % (07/15/19 10:43 AM) *L* (07/15/19 10:1 2 AM) (07/15/19 10:29 AM) Pulse Rate [55-90 bpm] 73 bpm (07/15/19 6:56 AM) Blood Pressure [90-138/55-84 148/78 mm Hg 148/78 mm Hg 142 /83 mm Hg mm Hg] *H* *H* *H* (07/15/19 10:43 AM) (07/15/19 10:29 AM) (07/15/19 1 0:12 AM) Respiratory Rate [16-30 20 br/min 17 br/min 22 br/mi n br/min] (07/15/19 11:27 AM) (07/15/19 10:43 AM) (07/15/19 1 0:29 AM) Temperature [96.8-100.4 98.0 DegF 99.0 DegF 100.0 De gF DegF] (07/15/19 10:12 AM) (07/15/19 9:55 AM) (07/15/19 9: 35 AM) Liters per Minute 2 L/min 6 L/min (07/15/19 9:37 AM) (07/15/19 9:00 AM) Mode of Delivery (Oxygen) Room air Room air Nasal cannula (07/15/19 10:43 AM) (07/15/19 10:29 AM) (07/15/19 1 0:12 AM) Blood pressure sites Arm, left (07/15/19 6:56 AM) Temperature Route Temporal Temporal Temporal (07/15/19 10:12 AM) (07/15/19 9:55 AM) (07/15/19 9: 35 AM) Dry Weight 78.5 kg (07/15/19 6:56 AM) Social History Social History Type Response Smoking Status Never smoker entered on: 09/28/15 Sex Male Medical Equipment Implanted Date:07/15/19 Target Site:Groin Right Description Quantity MRI Company Model PATCH HERNIA PROLENE MEDIUM - ETHC 1 [employer]ico n/j&j Wound Closure Unknown (ETPHSM6) FORTINO: No Information Assigning Authority: FDA
--- OUTSIDE RECORDS SUMMARY | 2022-06-20 19:50 | XMS_ITS | Continuity of Care Document ---
:1965 Author Organization [facility] Adult Address [address] [place] [address]- Care Team Providers Name Role Phone Veronica DENIS, Fernando Kwok Primary Care Physician [facility] Date[facility]s): 02/26/20 - 03/27/20 [facility] [address] [place] [address]- Attending Physician: Admtr, Ar8 Allergies, Adverse Reactions, [...] 08/20/19 8:46:00 EDT, Route to Pharmacy Electronically, [id number], [facility] #[id number], 183, cm, 07/24/19 10:31:00 EST, Height... Start [...] 11/10/19 10:53:00 EDT, Route to Pharmacy Electronically, [facility], 183, cm, 11/10/19 9:27:00 [...] tablet, 0 Refills, Maintenance, 12/01/19 7:32:00 EDT, [facility] #[id number], 183, cm, 12/01/19 7:19:00 EDT, Height, 77.5, kg, 11/08/19 18:47:00 EDT, Dry Weight Start Date: 12/01/19 Status: OrderedProAir HFA 90 mcg/inh inhalation aerosol with adapter 2, puffs, Inhalation, 4 times a day, for 30 days, # 1 each, Refills 11, Tot. Refills 11, Hard Stop 08/14/20 8:46:00 EDT, 08/20/19 8:46:00 EDT, Route to Pharmacy Electronically, [id number], [facility] #[id number], 183, cm... Start Date: 08/20/19 Stop Date: 08/14/20 Status: Orderedpyridoxine 100 mg oral tablet 1 tablet = 100 mg, By Mouth, Daily, # 30 tablet, 0 Refills, Maintenance, 11/10/19 10:52:00 EDT, Tablet, [facility], 183, cm, 11/10/19 9:27:00 EDT, Height, 77.5, kg, 11/08/19 18:47:00 EDT,Dry Weight Start Date: 11/10/19 Status: Orderedsertraline 100 mg oral tablet 1 tablet = 100 mg, By Mouth, Daily, # 30 tablet, 11 Refills, Maintenance, 08/20/19 8:45:00 EDT, Tablet, [facility] #[id number], 183, cm, 07/24/19 10:31:00 EST, Height, 78.5, kg, 07/15/19 6:56:00 EST, Dry Weight Start Date: 08/20/19 Status: Orderedthiamine 100 mg oral tablet 100 mg, 1, tablet, By Mouth, Daily, # 30 tablet, Refills 0, Tot. Refills 0, Maintenance, 11/10/19 10:52:00 EDT, Route to Pharmacy Electronically, [facility], 183, cm, 11/10/19 9:27:00 EDT, Height, 77.5, kg, 11/08/19 18:47:00 EDT, Dry Weight Start Date: 11/10/19 Status: OrderedVitamin B12 1000 mcg oral tablet 1 tablet = 1,000 mcg, By Mouth, Daily, # 30 tablet, 11 Refills, Maintenance, 08/20/19 8:46:00 EDT, Tablet, [facility] #[id number], 183, cm, 07/24/19 10:31:00 EST, Height, 78.5, [...] Polyp of rectum(Confirmed)4 Active Syncope(Confirmed) Active 1colo 47789ift 2000 negative [id number]; repeat 24377fxvx 2018 Social History Social History Type Response Smoking Status Never smoker entered on: 09/28/15 Sex Male Medical Equipment Implanted Date:07/15/19 Target Site:Groin Right Description Quantity MRI Company Model PATCH HERNIA PROLENE MEDIUM - [facility] 1 [employer] n/j&j Wound Closure Unknown (ETPHSM6) FORTINO: No Information Assigning Authority: FDA
--- OUTSIDE RECORDS SUMMARY | 2022-06-20 19:51 | XMS_ITS | Continuity of Care Document ---
:1965 Author Organization [facility] Adult Address [address] [place] [address]- Care Team Providers Name Role Phone Veronica DENIS, Fernando Kwok Primary Care Physician Encounter [facility] Date(s): 04/21/20 - 04/28/20 [facility] [address] [place] [phone]- Attending Physician: Not on Staff, Attending MD [...] 04/20/20 16:35:00 EST, Route to Pharmacy Electronically, [facility] #[id number], 183, cm, 04/20/20 15:57:00 EST, Height, 77.5, [...] 08/20/19 8:46:00 EDT, Route to Pharmacy Electronically, [id number], [facility] #[id number], 183, cm... Start Date: 08/20/19 Stop Date: 08/14/20 Status: Orderedpyridoxine 100 mg oral tablet 1 tablet = 100 mg, By Mouth, Daily, # 30 tablet, 0 Refills, Maintenance, 11/10/19 10:52:00 EDT, Tablet, [facility], 183, cm, 11/10/19 9:27:00 EDT, Height, 77.5, kg, 11/08/19 18:47:00 EDT,Dry Weight Start Date: 11/10/19 Status: Orderedsertraline 100 mg oral tablet 1 tablet = 100 mg, By Mouth, Daily, # 30 tablet, 11 Refills, Maintenance, 08/20/19 8:45:00 EDT, Tablet, [facility] #[id number], 183, cm, 07/24/19 10:31:00 EST, Height, 78.5, [...] 11/10/19 10:52:00 EDT, Route to Pharmacy Electronically, [facility], 183, cm, 11/10/19 9:27:00 EDT, Height, 77.5, kg, 11/08/19 18:47:00 EDT, Dry Weight Start Date: 11/10/19 Status: OrderedVitamin B12 1000 mcg oral tablet 1 tablet = 1,000 mcg, By Mouth, Daily, # 30 tablet, 11 Refills, Maintenance, 08/20/19 8:46:00 EDT, Tablet, [facility] #[id number], 183, cm, 07/24/19 10:31:00 EST, Height, 78.5, [...] Polyp of rectum(Confirmed)4 Active Syncope(Confirmed) Active 1colo 10445iau 2001 negative [id number]; repeat 11706sgjn 2017 Social History Social History Type Response Smoking Status Never smoker entered on: 09/28/15 Sex Male Medical Equipment Implanted Date:07/15/19 Target Site:Groin Right Description Quantity MRI Company Model PATCH HERNIA PROLENE MEDIUM - [facility] 1 [employer] n/j&j Wound Closure Unknown (ETPHSM6) FORTINO: No Information Assigning Authority: FDA
--- OUTSIDE RECORDS SUMMARY | 2022-06-20 19:51 | XMS_ITS | Continuity of Care Document ---
:1965 Author Organization [facility] Adult Address [address] [place] [address]- Care Team Providers Name Role Phone Fernando Martin MD Primary Care Physician [facility] Date(s): 04/03/22 - 05/03/22 [facility] [address] [place] [address]- Attending Physician: Admtr, Ar8 Allergies, Adverse Reactions, [...] tablet, 5 Refills, Maintenance, 01/29/22 11:05:00 EDT, [facility] #59863, 183, cm, 01/17/22 9:17:00 EDT, Height Start Date: 01/29/22 Status: Orderedescitalopram 20 mg oral tablet 1 tablet = 20 mg, By Mouth, Daily, # 30 tablet, 11 Refills, Maintenance, 01/17/22 9:39:00 EDT, Tablet, [facility] #24763, Partial fill upon patient request if the prescription is for a schedule II opioid drug., 183, cm, 01/17/22 9:17:00 EDT,... Start Date: 01/17/22 Stop Date: 01/12/23 Status: Orderedfolic acid 1 mg oral tablet 1 mg, 1, tablet, By Mouth, Daily, # 30 tablet, Refills 11, Tot. Refills 11, Maintenance, 04/28/21 10:47:00 EST, Route to Pharmacy Electronically, [facility] #92154, 183, cm, 04/25/21 15:05:00EST, Height, 77.5, kg, 11/08/19 18:47:00 EDT, Dry... Start Date: 04/28/21 Stop Date: 04/23/22 Status: OrderedK-Tab 20 mEq oral tablet, extended release 1 tablet = 20 mEq, By Mouth, Daily, # 30 tablet, 11 Refills, Maintenance, 04/03/22 11:09:00 EST, [facility] #63058, Partial fill upon patient request if the [...] 04/25/21 15:06:00 EST, Route to Pharmacy Electronically, [facility] #[id number], Partial fill upon patientrequest if the prescription is for a schedule II... Start Date: 04/25/21 Status: OrderedLevoxyl 0.025 mg oral tablet 1 tablet = 25 mcg, By Mouth, Daily, # 30 tablet, 11 Refills, Maintenance, 01/17/22 9:40:00 EDT, Tablet, [facility] #[id number], Partial fill upon patient request if the [...] 01/17/22 9:33:00 EDT, Route to Pharmacy Electronically, [id number], [facility] #[id number], 183, cm, 01/17/22 9:17:00 EDT, Height Start Date: 01/17/22 Status: OrderedVentolin HFA 108 mcg/inh inhalation aerosol with adapter 2 puffs, Inhalation, Every 4 hours, # 8.5 Gm, 11 Refills, Maintenance, 03/30/22 12:03:00 EST, [facility] #41744, Partial fill upon patient request if the prescription is for a schedule II opioid drug., 183, cm, 01/17/22 9:17:00 EDT, Height Start Date: 03/30/22 Status: Orderedvitamin A 8000 u oral capsule 1 capsule = 8,000 units, By Mouth, Daily, # 100 capsule, 11 Refills, Maintenance, 01/03/22 13:40:00 EDT, [facility] #79651, Partial fill upon patient request if the prescription is for a schedule II opioid drug., 183, cm, 11/02/21 10:11:00 E... Start Date: 01/03/22 Status: OrderedVitamin B12 1000 mcg oral tablet 1 tablet = 1,000 mcg, By Mouth, Daily, # 30 tablet, 11 Refills, Maintenance, 04/25/21 15:06:00 EST, Tablet, [facility] #68215, 183, cm, 04/25/21 15:05:00 EST, Height, 77.5, [...] 04/03/22 11:15:00 EST, Route to Pharmacy Electronically, [facility] #[id number], Partial fill upon patient request if the [...] Confirmed Active Vertigo Confirmed 02/15/11 Active 1colo 40046stee 24264kkg 2001 negative hbkeyjvm63037; repeat 26050sukb 19999yjde 2018 Procedures Procedure Date Related Diagnosis Body [...] Safety Status Authority Number Code Unknown Unknown [id number] Unknown 09/16/22 Unknown Unknown Active Unknown 2 [...] to help you? Yes Event Display: Non Lab Results Authored Date: Event Display: Cardiology Office Note, Non-BH Authored Date: Event Display: Non Cardiovascular Results Authored Date: EKG study Event Display: EKG Authored Date: Event Display: EKG Authored Date: Patient Care team information Care Team PersonnelName: Veronica DENIS, Fernando Kwok Position: [facility] Primary Care Physician Member Role: PCP Address: Address: [address] [place] [address]- Name: Leoncio Bowers RN Position: [facility] RN Member Role: Primary Care Nurse Care Team Related PersonsName: MINDY MEIER Address: home [address] [place] [id number] Name: LEONCIO CHI Address: home [facility]
--- OUTSIDE RECORDS SUMMARY | 2022-06-20 19:51 | XMS_ITS | Continuity of Care Document ---
:1965 Author Organization [facility] Address [address] [place] [address]- Care Team Providers Name Role Phone Veronica DENIS, Fernando Kwok [id number] Date(s): 11/07/19 - 11/10/[address] [address]- [facility] Encounter Diagnosis Abrasion (Final) - 11/07/19 Discharge Disposition: A-D/C Home Attending Physician: Gordy Smith Sr, MD Admitting Physician: Efraín Wolff MD Referring Physician: Not on Staff, Referring MD Allergies, Adverse Reactions, Alerts Substance Reaction [...] 08/20/19 8:46:00 EDT, Route to Pharmacy Electronically, [id number], [facility] #[id number], 183, cm, 07/24/19 10:31:00 EST, Height... Start [...] 11/10/19 10:53:00 EDT, Route to Pharmacy Electronically, [facility], 183, cm, 11/10/19 9:27:00 EDT, Height, 77.5, kg, 11/08/19 18:47:00 EDT, Dry Weight Start Date: 11/10/19 Status: Orderedmagnesium oxide 400 mg oral tablet 1 tablet = 400 mg, By Mouth, Daily, for 7 days, # 7 tablet, 0 Refills, Acute 11/17/19 10:59:00 EDT, 11/10/19 10:59:00 EDT, Tablet, [facility], 183, cm, 11/10/19 9:27:00 EDT, Height, 77.5,kg, 11/08/19 18:47:00 EDT, Dry Weight Start Date: 11/10/19 Stop Date: 11/17/19 Status: OrderedNasacort 0 Refills, Maintenance, 09/28/15 8:56:41 [...] 08/20/19 8:46:00 EDT, Route to Pharmacy Electronically, [id number], [facility] #[id number], 183, cm... Start Date: 08/20/19 Stop Date: 08/14/20 Status: Orderedpyridoxine 100 mg oral tablet 1 tablet = 100 mg, By Mouth, Daily, # 30 tablet, 0 Refills, Maintenance, 11/10/19 10:52:00 EDT, Tablet, [facility], 183, cm, 11/10/19 9:27:00 EDT, Height, 77.5, kg, 11/08/19 18:47:00 EDT,Dry Weight Start Date: 11/10/19 Status: Orderedsertraline 100 mg oral tablet 1 tablet = 100 mg, By Mouth, Daily, # 30 tablet, 11 Refills, Maintenance, 08/20/19 8:45:00 EDT, Tablet, [id number], 183, cm, 07/24/19 10:31:00 EST, Height, 78.5, kg, 07/15/19 6:56:00 EST, Dry Weight Start Date: 08/20/19 Status: Orderedthiamine 100 mg oral tablet 100 mg, 1, tablet, By Mouth, Daily, # 30 tablet, Refills 0, Tot. Refills 0, Maintenance, 11/10/19 10:52:00 EDT, Route to Pharmacy Electronically, [facility], 183, cm, 11/10/19 9:27:00 EDT, Height, 77.5, kg, 11/08/19 18:47:00 EDT, Dry Weight Start Date: 11/10/19 Status: OrderedVitamin B12 1000 mcg oral tablet 1 tablet = 1,000 mcg, By Mouth, Daily, # 30 tablet, 11 Refills, Maintenance, 08/20/19 8:46:00 EDT, Tablet, [facility] #[id number], 183, cm, 07/24/19 10:31:00 EST, Height, 78.5, [...] Polyp of rectum(Confirmed)4 Active Syncope(Confirmed) Active 1colo 43688yqo 2000 negative mjnefute88967; repeat 87712syxh 2017 Vital Signs Most recent to oldest 1 2 3 [Reference Range]: Height 183 cm 183 cm 183 cm (11/10/19 9:27 AM) (11/10/19 4:36 AM) (11/10/19 12: 23 AM) Weight 77.5 kg (11/08/19 6:47 PM) Oxygen Saturation [94-100 99 % 99 % 99 % %] (11/10/19 9:27 AM) (11/10/19 4:36 AM) (11/10/19 12: 23 AM) Pulse Rate [55-90 bpm] 60 bpm 59 bpm 59 bpm (11/10/19 9:27 AM) (11/10/19 4:36 AM) (11/10/19 12: 23 AM) Body Mass Index 23.14 [18.5-24.99] (11/08/19 6:47 PM) Blood Pressure 139/83 mm Hg 146/83 mm Hg 144/83 mm Hg [90-138/55-84 mm Hg] *H* *H* *H* (11/10/19 9:27 AM) (11/10/19 4:36 AM) (11/10/19 12: 23 AM) Respiratory Rate [16-30 18 br/min 15 br/min 19 br/mi n br/min] (11/10/19 10:10 AM) *L* (11/10/19 4:36 AM) (11/10/19 9:27 AM) Temperature [96.8-100.4 99.0 DegF 98.2 DegF 98.5 Deg F DegF] (11/10/19 9:27 AM) (11/10/19 4:36 AM) (11/10/19 12: 23 AM) Liters per Minute 0 L/min (11/08/19 12:22 PM) Mode of Delivery (Oxygen) Room air Room air Room a ir (11/10/19 9:27 AM) (11/10/19 4:36 AM) (11/10/19 12: 23 AM) Blood pressure sites Arm, left Arm, left Arm, left (11/10/19 9:27 AM) (11/10/19 4:36 AM) (11/10/19 12: 23 AM) Temperature Route Oral Oral Oral (11/10/19 9:27 AM) (11/10/19 4:36 AM) (11/10/19 12: 23 AM) Dry Weight 77.5 kg (11/08/19 6:47 PM) Weight Obtained Via Patient/family stated (11/08/19 6:47 PM) Dry Weight Obtained Via Patient/family stated (11/08/19 6:47 PM) Social History Social History Type Response Smoking Status Never smoker entered on: 09/28/15 Sex Male Medical Equipment Implanted Date:07/15/19 Target Site:Groin Right Description Quantity MRI Company Model PATCH HERNIA PROLENE MEDIUM - [facility] 1 [employer] n/j&j Wound Closure Unknown (ETPHSM6) FORTINO: No Information Assigning Authority: FDA
--- OUTSIDE RECORDS SUMMARY | 2022-06-20 19:51 | XMS_ITS | Continuity of Care Document ---
:1965 Author Organization [facility] Address [address] [place] [address]- Care Team Providers Name Role Phone Veronica DENIS, Fernando Kwok Primary Care Physician [facility] Date(s): 08/22/21 - 09/21/21 [facility] [address] [place] [address]- Attending Physician: Admtr, Ar8 Allergies, Adverse Reactions, [...] tablet, 6 Refills, Maintenance, 06/29/21 8:02:00 EST, [facility] #[id number], Partial fill upon patient request if the prescription is for a schedule II opioid drug., 183, cm, 06/29/21 7:54:00 EST, Height,... Start Date: 06/29/21 Status: Orderedfolic acid 1 mg oral tablet 1 mg, 1, tablet, By Mouth, Daily, # 30 tablet, Refills 11, Tot. Refills 11, Maintenance, 04/28/21 10:47:00 EST, Route to Pharmacy Electronically, [facility] #[id number], 183, cm, 04/25/21 15:05:00EST, Height, 77.5, kg, 11/08/19 18:47:00 EDT, Dry... Start Date: 04/28/21 Stop Date: 04/23/22 Status: Orderedlactulose 10 gm/15 ml oral syrup 30 mL = 20 Gm, By Mouth, 3 times a day, # 480 mL, 11 Refills, Maintenance, 04/25/21 15:06:00 EST, Syrup, [facility] #[id number], Partial fill upon patient request if the prescription is for a schedule II opioid drug., 30 mL By Mouth 3 times a day... Start Date: 04/25/21 Status: OrderedLasix 40 mg oral tablet 40 mg, 1, tablet, By Mouth, Daily, # 30 tablet, Refills 11, Tot. Refills 11, Maintenance, 04/25/21 15:06:00 EST, Route to Pharmacy Electronically, [facility] #29919, Partial fill upon patientrequest if the prescription is for a schedule II... Start Date: 04/25/21 Status: OrderedLexapro 10 mg oral tablet 1 tablet = 10 mg, By Mouth, Daily, # 30 tablet, 11 Refills, Maintenance, 06/19/21 11:21:00 EST, Tablet, [facility] #92125, Partial fill upon patient request if the prescription is for a schedule II opioid drug., 183, cm, 04/25/21 15:05:00 ES... Start Date: 06/19/21 Stop Date: 06/14/22 Status: Orderedmagnesium oxide 400 mg oral tablet 1 tablet = 400 mg, By Mouth, Daily, for 30 days, # 30 tablet, 11 Refills, Acute 04/23/22 10:49:00 EST, 04/28/21 10:49:00 EST, Tablet, [facility] #[id number], Partial fill upon patient request if the [...] 08/04/21 10:46:00 EDT, Route to Pharmacy Electronically, [facility] #[id number], Partial fill upon patient request if the [...] 08/22/21 10:48:00 EDT, Route to Pharmacy Electronically, [id number], [facility] #47143, 183, cm, 08/22/21 10:40:00 EDT, Height, 77.5, kg, ... Start Date: 08/22/21 Status: Orderedspironolactone 100 mg oral tablet 100 mg, 1, tablet, By Mouth, Daily, # 30 tablet, Refills 11, Tot. Refills 11, Maintenance, 04/25/21 15:06:00 EST, Route to Pharmacy Electronically, [facility] #45887, Partial fill upon patient request if the prescription is for a schedule II... Start Date: 04/25/21 Status: OrderedVitamin B12 1000 mcg oral tablet 1 tablet = 1,000 mcg, By Mouth, Daily, # 30 tablet, 11 Refills, Maintenance, 04/25/21 15:06:00 EST, Tablet, [facility] #35298, 183, cm, 04/25/21 15:05:00 EST, Height, 77.5, [...] moderate(Confirmed) Syncope(Confirmed) Active Vertigo(Confirmed) 02/15/11 Active 1colo 92629xcvx 46850axu 2001 negative hhvwmxza46556; repeat 67573uwaz 70317pwcc 2017 Procedures Procedure Date Related Diagnosis Body [...]
--- OUTSIDE RECORDS SUMMARY | 2022-06-20 19:51 | XMS_ITS | Continuity of Care Document ---
:1965 Author Organization [facility] Address [address] [place] [address]- Care Team Providers Name Role Phone Veronica DENIS, Fernando Kwok Primary Care Physician [facility] Date[facility]s): 04/04/20 - 05/04/20 [facility] [address] [place] [address]- Allergies, Adverse Reactions, Alerts Substance Reaction Severity [...] 05/03/20 10:47:00 EST, Route to Pharmacy Electronically, [facility] #[id number], 183, cm, 05/03/20 10:28:00EST, Height, 77.5, kg, 11/08/19 18:47:00 EDT, Dry... Start Date: 05/03/20 Stop Date: 04/28/21 Status: Orderedlactulose 10 gm/15 ml oral syrup 30 mL = 20 Gm, By Mouth, 3 times a day, # 480 mL, 11 Refills, Maintenance, 05/03/20 11:06:00 EST, Syrup, [facility] #[id number], Partial fill upon patient request if the [...] 05/03/20 10:48:00 EST, Route to Pharmacy Electronically, [facility] #[id number], Partial fill upon patientrequest if the prescription is for a schedule II... Start Date: 05/03/20 Status: Orderedmagnesium oxide 400 mg oral tablet 1 tablet = 400 mg, By Mouth, Daily, for 30 days, # 30 tablet, 11 Refills, Acute 04/28/21 10:49:00 EST, 05/03/20 10:49:00 EST, Tablet, [facility] #44405, Partial fill upon patient request if the [...] 08/20/19 8:46:00 EDT, Route to Pharmacy Electronically, [id number], [facility] #[id number], 183, cm... Start Date: 08/20/19 Stop Date: 08/14/20 Status: Orderedsertraline 100 mg oral tablet 1 tablet = 100 mg, By Mouth, Daily, # 30 tablet, 11 Refills, Maintenance, 08/20/19 8:45:00 EDT, Tablet, [facility] #17752, 183, cm, 07/24/19 10:31:00 EST, Height, 78.5, kg, 07/15/19 6:56:00 EST, Dry Weight Start Date: 08/20/19 Status: Orderedspironolactone 100 mg oral tablet 100 mg, 1, tablet, By Mouth, Daily, # 30 tablet, Refills 11, Tot. Refills 11, Maintenance, 05/03/20 10:48:00 EST, Route to Pharmacy Electronically, [facility] #28571, Partial fill upon patient request if the prescription is for a schedule II... Start Date: 05/03/20 Status: OrderedVitamin B12 1000 mcg oral tablet 1 tablet = 1,000 mcg, By Mouth, Daily, # 30 tablet, 11 Refills, Maintenance, 05/03/20 10:47:00 EST, Tablet, [facility] #[id number], 183, cm, 05/03/20 10:28:00 EST, Height, 77.5, [...] Polyp of rectum(Confirmed)4 Active Syncope(Confirmed) Active 1colo 85534loz 2000 negative xvuuefmp56393; repeat 86703ctpp 2017 Social History Social History Type Response Smoking Status Never smoker entered on: 09/28/15 Sex Male Medical Equipment Implanted Date:07/15/19 Target Site:Groin Right Description Quantity MRI Company Model PATCH HERNIA PROLENE [employer]UM - [facility] 1 [employer] n/j&j Wound Closure Unknown (ETPHSM6) FORTINO: No Information Assigning Authority: FDA
--- OUTSIDE RECORDS SUMMARY | 2022-06-20 19:51 | XMS_ITS | Continuity of Care Document ---
:1965 Author Organization [facility] Address [address] [place] [address]- Care Team Providers Name Role Phone Fernando Martin MD Primary Care Physician Encounter [facility] Date(s): 05/19/20 - 05/26/20 [facility] [address] [place] [address]- Encounter Diagnosis Alcoholic liver failure (Discharge Diagnosis) - 05/19/20 Depression (Discharge Diagnosis) - 05/19/20 Hepatic encephalopathy (Discharge Diagnosis) - 05/19/20 Attending Physician: Fernando Martin MD Allergies, Adverse [...] 05/03/20 10:47:00 EST, Route to Pharmacy Electronically, [facility] #[id number], 183, cm, 05/03/20 10:28:00EST, Height, 77.5, kg, 11/08/19 18:47:00 EDT, Dry... Start Date: 05/03/20 Stop Date: 04/28/21 Status: Orderedlactulose 10 gm/15 ml oral syrup 30 mL = 20 Gm, By Mouth, 3 times a day, # 480 mL, 11 Refills, Maintenance, 05/03/20 11:06:00 EST, Syrup, [facility] #[id number], Partial fill upon patient request if the prescription is for a schedule II opioid drug., 30 mL By Mouth 3 times a day... Start Date: 05/03/20 Status: OrderedLasix 40 mg oral tablet 80 mg, 2, tablet, By Mouth, Daily, # 30 tablet, Refills 11, Tot. Refills 11, Maintenance, 05/03/20 10:48:00 EST, Route to Pharmacy Electronically, [facility] #[id number], Partial fill upon patientrequest if the prescription is for a schedule II... Start Date: 05/03/20 Status: Orderedmagnesium oxide 400 mg oral tablet 1 tablet = 400 mg, By Mouth, Daily, for 30 days, # 30 tablet, 11 Refills, Acute 04/28/21 10:49:00 EST, 05/03/20 10:49:00 EST, Tablet, [facility] #[id number], Partial fill upon patient request if the [...] 08/20/19 8:46:00 EDT, Route to Pharmacy Electronically, [id number], [facility] #[id number], 183, cm... Start Date: 08/20/19 Stop Date: 08/14/20 Status: Orderedsertraline 100 mg oral tablet 1 tablet = 100 mg, By Mouth, Daily, # 30 tablet, 11 Refills, Maintenance, 08/20/19 8:45:00 EDT, Tablet, [facility] #[id number], 183, cm, 07/24/19 10:31:00 EST, Height, 78.5, kg, 07/15/19 6:56:00 EST, Dry Weight Start Date: 08/20/19 Status: Orderedspironolactone 100 mg oral tablet 200 mg, 2, tablet, By Mouth, Daily, # 30 tablet, Refills 11, Tot. Refills 11, Maintenance, 05/03/20 10:48:00 EST, Route to Pharmacy Electronically, [facility] #[id number], Partial fill upon patient request if the prescription is for a schedule II... Start Date: 05/03/20 Status: OrderedVitamin B12 1000 mcg oral tablet 1 tablet = 1,000 mcg, By Mouth, Daily, # 30 tablet, 11 Refills, Maintenance, 05/03/20 10:47:00 EST, Tablet, [facility] #[id number], 183, cm, 05/03/20 10:28:00 EST, Height, 77.5, [...] Polyp of rectum(Confirmed)4 Active Syncope(Confirmed) Active 1colo 94548lic 2000 negative [id number]; repeat 43835wtfy 2017 Diagnosis Diagnosis Type Effective Dates Health Clinical Infor mant Status Service Alcoholic liver Discharge 05/19/20 failure Diagnosis Depression Discharge 05/19/20 Diagnosis Hepatic Discharge 05/19/20 encephalopathy Diagnosis Vital Signs Most recent to oldest [Reference Range]: 1 Height 183 cm (05/19/20 11:29 AM) Weight 76.3 kg (05/19/20 11:29 AM) Oxygen Saturation [94-100 %] 93 % *L* (05/19/20 11:29 AM) Pulse Rate [55-90 bpm] 80 bpm (05/19/20 11:29 AM) Body Mass Index [18.5-24.99] 22.78 (05/19/20 11:29 AM) Blood Pressure [90-138/55-84 mm Hg] 114/70 mm Hg (05/19/20 11:29 AM) Mode of Delivery (Oxygen) Room air (05/19/20 11:29 AM) Blood pressure sites Arm, left (05/19/20 11:29 AM) Weight Obtained Via Standing scale (05/19/20 11:29 AM) Social History Social History Type Response Smoking Status Never smoker entered on: 09/28/15 Sex Male Medical Equipment Implanted Date:07/15/19 Target Site:Groin Right Description Quantity MRI Company Model PATCH HERNIA PROLENE MEDIUM - ETHC 1 Ethico n/j&j Wound Closure Unknown (ETPHSM6) FORTINO: No Information Assigning Authority: FDA
--- OUTSIDE RECORDS SUMMARY | 2022-06-20 19:51 | XMS_ITS | Continuity of Care Document ---
:1965 Author Organization [facility] Address [address] [place] [address]- Care Team Providers Name Role Phone Fernando Martin MD Primary Care Physician Encounter [facility] Date(s): 07/24/19 - 08/03/[address] [address]- [facility] Attending Physician: Carmen Blancas Admitting Physician: [...] 09/29/18 8:16:03 EDT, Route to Pharmacy Electronically, [id number], [id number] Start Date: 09/29/18 Stop Date: 09/24/19 Status: [...] 03/30/19 15:17:48 EST, Route to Pharmacy Electronically, [id number], [facility] #[id number] Start Date: 03/30/19 Stop Date: 03/24/20 Status: OrderedSEROquel 25 mg oral tablet 25 mg, 1, tablet, By Mouth, 2 times a day, # 60 tablet, Refills 1, Tot. Refills 1, Maintenance, 12/25/18 8:04:20 EDT, Route to Pharmacy Electronically, [id number], [facility] #[id number] Start Date: 12/25/18 Stop Date: 02/23/19 Status: [...] Polyp of rectum(Confirmed)4 Active Syncope(Confirmed) Active 1colo 35476bgo 2000 negative [id number]; repeat 95108hpsu 2017 Social History Social History Type Response Smoking Status Never smoker entered on: 09/28/15 Sex Male Medical Equipment Implanted Date:07/15/19 Target Site:Groin Right Description Quantity MRI Company Model PATCH HERNIA PROLENE MEDIUM - ETHC 1 [employer] n/j&j Wound Closure Unknown (ETPHSM6) FORTINO: No Information Assigning Authority: FDA
--- OUTSIDE RECORDS SUMMARY | 2022-06-20 19:51 | XMS_ITS | Continuity of Care Document ---
:1965 Author Organization [facility] Address [address] [place] [address]- Care Team Providers Name Role Phone Fernando Martin MD Primary Care Physician Encounter [facility] Date(s): 07/03/19 - 07/03/[address] [address]- [facility] Encounter Diagnosis Inguinal hernia (Final) - 07/03/19 Discharge Disposition: A-D/C Home Attending Physician: Venancio Barrow DO Admitting Physician: Venancio Barrow DO Referring Physician: Not on Staff, Referring MD [...] 09/29/18 8:16:03 EDT, Route to Pharmacy Electronically, [id number], [facility] 21471 Start Date: 09/29/18 Stop Date: 09/24/19 Status: [...] 03/30/19 15:17:48 EST, Route to Pharmacy Electronically, [id number], [facility] #[id number] Start Date: 03/30/19 Stop Date: 03/24/20 Status: OrderedSEROquel 25 mg oral tablet 25 mg, 1, tablet, By Mouth, 2 times a day, # 60 tablet, Refills 1, Tot. Refills 1, Maintenance, 12/25/18 8:04:20 EDT, Route to Pharmacy Electronically, [id number], [facility] #[id number] Start Date: 12/25/18 Stop Date: 02/23/19 Status: [...] Polyp of rectum(Confirmed)4 Active Syncope(Confirmed) Active 1colo 75711stz 2000 negative [id number]; repeat 62825tbph 2017 Vital Signs Most recent to oldest 1 2 3 [Reference Range]: Height 182 cm 182 cm 182 cm (07/03/19 5:25 PM) (07/03/19 12:17 PM) (07/03/19 11 :57 AM) Weight 78 kg 78 kg 78 kg (07/03/19 5:25 PM) (07/03/19 12:17 PM) (07/03/19 11 :57 AM) Oxygen Saturation [94-100 %] 99 % 99 % 99 % (07/03/19 5:25 PM) (07/03/19 11:57 AM) (07/03/19 11 :19 AM) Pulse Rate [55-90 bpm] 62 bpm 73 bpm 74 bpm (07/03/19 5:25 PM) (07/03/19 11:57 AM) (07/03/19 11 :19 AM) Body Mass Index [18.5-24.99] 23.55 23.55 (07/03/19 5:25 PM) (07/03/19 12:17 PM) Blood Pressure [90-138/55-84 150/86 mm Hg 126/77 mm Hg mm Hg] *H* (07/03/19 11:57 AM) (07/03/19 5:25 PM) Respiratory Rate [16-30 18 br/min 20 br/min 16 br/mi n br/min] (07/03/19 5:25 PM) (07/03/19 11:57 AM) (07/03/19 11 :19 AM) Temperature [96.8-100.4 DegF] 98.6 DegF 98.2 DegF (07/03/19 5:25 PM) (07/03/19 12:17 PM) Mode of Delivery (Oxygen) Room air Room air (07/03/19 5:25 PM) (07/03/19 11:57 AM) Temperature Route Oral Oral (07/03/19 5:25 PM) (07/03/19 12:17 PM) Dry Weight 78 kg 78 kg 78 kg (07/03/19 5:25 PM) (07/03/19 12:17 PM) (07/03/19 11 :57 AM) Social History Social History Type Response Smoking Status Never smoker entered on: 09/28/15 Sex Male
--- OUTSIDE RECORDS SUMMARY | 2022-06-20 19:51 | XMS_ITS | Continuity of Care Document ---
:1965 Author Organization [facility] Address [address] [place] [address]- Care Team Providers Name Role Phone Veronica DENIS, Fernando Kwok Primary Care Physician Encounter [facility] Date(s): 08/04/21 - 08/11/21 [facility] [address] [place] [address]- Attending Physician: Ziyad FERGUSON, Yusra Hampton Allergies, Adverse Reactions, Alerts No Known Allergies [...] tablet, 6 Refills, Maintenance, 06/29/21 8:02:00 EST, [facility] #[id number], Partial fill upon patient request if the prescription is for a schedule II opioid drug., 183, cm, 06/29/21 7:54:00 EST, Height,... Start Date: 06/29/21 Status: Orderedfolic acid 1 mg oral tablet 1 mg, 1, tablet, By Mouth, Daily, # 30 tablet, Refills 11, Tot. Refills 11, Maintenance, 04/28/21 10:47:00 EST, Route to Pharmacy Electronically, [facility] #[id number], 183, cm, 04/25/21 15:05:00EST, Height, 77.5, kg, 11/08/19 18:47:00 EDT, Dry... Start Date: 04/28/21 Stop Date: 04/23/22 Status: Orderedlactulose 10 gm/15 ml oral syrup 30 mL = 20 Gm, By Mouth, 3 times a day, # 480 mL, 11 Refills, Maintenance, 04/25/21 15:06:00 EST, Syrup, [facility] #[id number], Partial fill upon patient request if the prescription is for a schedule II opioid drug., 30 mL By Mouth 3 times a day... Start Date: 04/25/21 Status: OrderedLasix 40 mg oral tablet 40 mg, 1, tablet, By Mouth, Daily, # 30 tablet, Refills 11, Tot. Refills 11, Maintenance, 04/25/21 15:06:00 EST, Route to Pharmacy Electronically, [facility] #[id number], Partial fill upon patientrequest if the prescription is for a schedule II... Start Date: 04/25/21 Status: OrderedLexapro 10 mg oral tablet 1 tablet = 10 mg, By Mouth, Daily, # 30 tablet, 11 Refills, Maintenance, 06/19/21 11:21:00 EST, Tablet, [facility] #[id number], Partial fill upon patient request if the prescription is for a schedule II opioid drug., 183, cm, 04/25/21 15:05:00 ES... Start Date: 06/19/21 Stop Date: 06/14/22 Status: Orderedmagnesium oxide 400 mg oral tablet 1 tablet = 400 mg, By Mouth, Daily, for 30 days, # 30 tablet, 11 Refills, Acute 04/23/22 10:49:00 EST, 04/28/21 10:49:00 EST, Tablet, [facility] #[id number], Partial fill upon patient request if the [...] 08/04/21 10:46:00 EDT, Route to Pharmacy Electronically, [facility] #[id number], Partial fill upon patient request if the [...] Gm, Refills 5, Route to Pharmacy Electronically, [id number], [facility] #[id number], 183, cm, 05/01/21 6:58:00 EST, Height, 77.5, kg, 11/08/19 18:47:00 EDT, Dry Weight Start Date: 06/16/21 Status: Orderedspironolactone 100 mg oral tablet 100 mg, 1, tablet, By Mouth, Daily, # 30 tablet, Refills 11, Tot. Refills 11, Maintenance, 04/25/21 15:06:00 EST, Route to Pharmacy Electronically, [facility] #[id number], Partial fill upon patient request if the prescription is for a schedule II... Start Date: 04/25/21 Status: OrderedVitamin B12 1000 mcg oral tablet 1 tablet = 1,000 mcg, By Mouth, Daily, # 30 tablet, 11 Refills, Maintenance, 04/25/21 15:06:00 EST, Tablet, [facility] #[id number], 183, cm, 04/25/21 15:05:00 EST, Height, 77.5, [...] moderate(Confirmed) Syncope(Confirmed) Active Vertigo(Confirmed) 02/15/11 Active 1colo 06167jilh 81696agg 2000 negative [id number]; repeat 08903ujja 25015ilzl 2017 Vital Signs Most recent to oldest [Reference Range]: 1 Height 183 cm (08/04/21 10:06 AM) Weight 89.4 kg (08/04/21 10:06 AM) Oxygen Saturation [94-100 %] 98 % (08/04/21 10:06 AM) Pulse Rate [55-90 bpm] 71 bpm (08/04/21 10:06 AM) Body Mass Index [18.5-24.99] 26.7 *H* (08/04/21 10:06 AM) Blood Pressure [90-138/55-84 mm Hg] 144/80 mm Hg *H* (08/04/21 10:06 AM) Respiratory Rate [16-30 br/min] 20 br/min (08/04/21 10:06 AM) Mode of Delivery (Oxygen) Room air (08/04/21 10:06 AM) Blood pressure sites Arm, left (08/04/21 10:06 AM) Weight Obtained Via Standing scale (08/04/21 10:06 AM) Social History Social History Type Response Smoking Status Never smoker entered on: 09/28/15 Sex Male Medical Equipment Implanted Date:07/15/19 Target Site:Groin Right Description Quantity MRI Company Model PATCH HERNIA PROLENE MEDIUM - ETHC 1 [employer]ico n/j&j Wound Closure Unknown (ETPHSM6) FORTINO: No Information Assigning Authority: FDA
--- OUTSIDE RECORDS SUMMARY | 2022-06-20 19:51 | XMS_ITS | Continuity of Care Document ---
:1965 Author Organization [facility] Address [address] [place] [address]- Care Team Providers Name Role Phone Fernando Martin MD Primary Care Physician Encounter [facility] Date(s): 02/09/22 - 06/09/22 [facility] [address] [place] [address]- Attending Physician: Fernando Martin MD Allergies, Adverse [...] tablet, 5 Refills, Maintenance, 01/29/22 11:05:00 EDT, [facility] #[id number], 183, cm, 01/17/22 9:17:00 EDT, Height Start Date: 01/29/22 Status: Orderedescitalopram 20 mg oral tablet 1 tablet = 20 mg, By Mouth, Daily, # 30 tablet, 11 Refills, Maintenance, 01/17/22 9:39:00 EDT, Tablet, [facility] #33444, Partial fill upon patient request if the prescription is for a schedule II opioid drug., 183, cm, 01/17/22 9:17:00 EDT,... Start Date: 01/17/22 Stop Date: 01/12/23 Status: Orderedfolic acid 1 mg oral tablet 1 mg, 1, tablet, By Mouth, Daily, # 30 tablet, Refills 5, Tot. Refills 5, Maintenance, 05/11/22 9:41:00 EST, Route to Pharmacy Electronically, [facility] #14137, 183, cm, 04/03/22 10:51:00 EST, Height Start Date: 05/11/22 Stop Date: 11/07/22 Status: OrderedK-Tab 20 mEq oral tablet, extended release 1 tablet = 20 mEq, By Mouth, Daily, # 30 tablet, 11 Refills, Maintenance, 04/03/22 11:09:00 EST, [facility] #88715, Partial fill upon patient request if the [...] 05/08/22 10:26:00 EST, Route to Pharmacy Electronically, [facility] #37110, Partial fill upon patient request if the prescription is for a schedule II op... Start Date: 05/08/22 Status: OrderedLevoxyl 0.025 mg oral tablet 1 tablet = 25 mcg, By Mouth, Daily, # 30 tablet, 11 Refills, Maintenance, 01/17/22 9:40:00 EDT, Tablet, [facility] #28611, Partial fill upon patient request if the prescription is for a schedule II opioid drug., 183, cm, 01/17/22 9:17:00 EDT... Start Date: 01/17/22 Status: Orderedmagnesium oxide 400 mg oral tablet 1 tablet = 400 mg, By Mouth, Daily, for 30 days, APPOINTMENT NEEDED FOR FURTHER REFILLS, # 30 tablet, 2 Refills, Acute 08/29/22 12:08:00 EDT, 05/31/22 12:08:00 EST, [facility] #68185, Partialfill upon patient request if the prescription is... Start Date: 05/31/22 Stop Date: 08/29/22 Status: Orderedmidodrine 5 mg oral tablet 5 mg, 1, tablet, By Mouth, Daily, # 30 tablet, Refills 1, Tot. Refills 1, Maintenance, 05/31/22 10:58:00 EST, Route to Pharmacy Electronically, [facility] #18553, Partial fill upon patient request if the [...] 01/17/22 9:33:00 EDT, Route to Pharmacy Electronically, [id number], [facility] #[id number], 183, cm, 01/17/22 9:17:00 EDT, Height Start Date: 01/17/22 Status: OrderedVentolin HFA 108 mcg/inh inhalation aerosol with adapter 2 puffs, Inhalation, Every 4 hours, # 8.5 Gm, 11 Refills, Maintenance, 03/30/22 12:03:00 EST, [facility] #14937, Partial fill upon patient request if the prescription is for a schedule II opioid drug., 183, cm, 01/17/22 9:17:00 EDT, Height Start Date: 03/30/22 Status: Orderedvitamin A 8000 u oral capsule 1 capsule = 8,000 units, By Mouth, Daily, # 100 capsule, 11 Refills, Maintenance, 01/03/22 13:40:00 EDT, [facility] #25744, Partial fill upon patient request if the prescription is for a schedule II opioid drug., 183, cm, 11/02/21 10:11:00 E... Start Date: 01/03/22 Status: OrderedVitamin B12 1000 mcg oral tablet 1 tablet = 1,000 mcg, By Mouth, Daily, # 30 tablet, 11 Refills, Maintenance, 04/25/21 15:06:00 EST, Tablet, [facility] #17394, 183, cm, 04/25/21 15:05:00 EST, Height, 77.5, [...] 04/03/22 11:15:00 EST, Route to Pharmacy Electronically, [facility] #[id number], Partial fill upon patient request if the [...] Confirmed Active Vertigo Confirmed 02/15/11 Active 1colo 55867nkwe 38242afz 2001 negative [id number]; repeat 57696eyhs 31339karq 2018 Social History Social History Type Response Smoking Status Never smoker entered on: 09/28/15 Sex Male Implantable Device List Procedure Provider Procedure Date Device Type Site Repair Hernia Inguinal Colbyer DO, Cyndi O 07/15/19 Unknown Groin Right Open Device Serial Lot or Manufacturing Expiration Distinct MRI Implan table Assigning Identifier Number Batch Date Date Identification Safety Status Authority Number Code Unknown Unknown [id number] Unknown 09/16/22 Unknown Unknown Active Unknown 2 Patient Care team information Care Team PersonnelName: Fernando Martin MD Position: [facility] Primary Care Physician Member Role: PCP Address: Address: [address] [place] [address]- Name: Leoncio Bowers RN Position: [facility] RN Member Role: Primary Care Nurse Care Team Related PersonsName: MINDY MEIER Address: home [address] [place] [address] Name: LEONCIO CHI Address: home [facility]
--- OUTSIDE RECORDS SUMMARY | 2022-06-20 19:51 | XMS_ITS | Continuity of Care Document ---
:1965 Author Organization [facility] Address [address] [place] [address]- Care Team Providers Name Role Phone Veronica DENIS, Fernando Kwok Primary Care Physician Encounter [facility] Date(s): 03/19/22 - 04/18/[address] [address] Allergies, Adverse Reactions, Alerts No Known Allergies [...] 30 tablet, 5 Refills, Maintenance, 01/29/22 11:05:00 T, [facility] #01189, 183, cm, 01/17/22 9:17:00 EDT, Height Start Date: 01/29/22 Status: Orderedescitalopram 20 mg oral tablet 1 tablet = 20 mg, By Mouth, Daily, # 30 tablet, 11 Refills, Maintenance, 01/17/22 9:39:00 EDT, Tablet, [facility] #34518, Partial fill upon patient request if the prescription is for a schedule II opioid drug., 183, cm, 01/17/22 9:17:00 EDT,... Start Date: 01/17/22 Stop Date: 01/12/23 Status: Orderedfolic acid 1 mg oral tablet 1 mg, 1, tablet, By Mouth, Daily, # 30 tablet, Refills 11, Tot. Refills 11, Maintenance, 04/28/21 10:47:00 EST, Route to Pharmacy Electronically, [facility] #51196, 183, cm, 04/25/21 15:05:00EST, Height, 77.5, kg, 11/08/19 18:47:00 EDT, Dry... Start Date: 04/28/21 Stop Date: 04/23/22 Status: OrderedK-Tab 20 mEq oral tablet, extended release 1 tablet = 20 mEq, By Mouth, Daily, # 30 tablet, 11 Refills, Maintenance, 04/03/22 11:09:00 EST, [facility] #[id number], Partial fill upon patient request if the [...] 04/25/21 15:06:00 EST, Route to Pharmacy Electronically, [facility] #87334, Partial fill upon patientrequest if the prescription is for a schedule II... Start Date: 04/25/21 Status: OrderedLevoxyl 0.025 mg oral tablet 1 tablet = 25 mcg, By Mouth, Daily, # 30 tablet, 11 Refills, Maintenance, 01/17/22 9:40:00 EDT, Tablet, [facility] #[id number], Partial fill upon patient request if the prescription is for a schedule II opioid drug., 183, cm, 01/17/22 9:17:00 EDT... Start Date: 01/17/22 Status: Orderedmagnesium oxide 400 mg oral tablet 1 tablet = 400 mg, By Mouth, Daily, for 30 days, # 30 tablet, 11 Refills, Acute 04/23/22 10:49:00 EST, 04/28/21 10:49:00 EST, Tablet, [facility] #23221, Partial fill upon patient request if the [...] 01/17/22 9:33:00 EDT, Route to Pharmacy Electronically, [id number], [facility] #[id number], 183, cm, 01/17/22 9:17:00 EDT, Height Start Date: 01/17/22 Status: OrderedVentolin HFA 108 mcg/inh inhalation aerosol with adapter 2 puffs, Inhalation, Every 4 hours, # 8.5 Gm, 11 Refills, Maintenance, 03/30/22 12:03:00 EST, [facility] #19404, Partial fill upon patient request if the prescription is for a schedule II opioid drug., 183, cm, 01/17/22 9:17:00 EDT, Height Start Date: 03/30/22 Status: Orderedvitamin A 8000 u oral capsule 1 capsule = 8,000 units, By Mouth, Daily, # 100 capsule, 11 Refills, Maintenance, 01/03/22 13:40:00 EDT, [facility] #06428, Partial fill upon patient request if the prescription is for a schedule II opioid drug., 183, cm, 11/02/21 10:11:00 E... Start Date: 01/03/22 Status: OrderedVitamin B12 1000 mcg oral tablet 1 tablet = 1,000 mcg, By Mouth, Daily, # 30 tablet, 11 Refills, Maintenance, 04/25/21 15:06:00 EST, Tablet, [facility] #99101, 183, cm, 04/25/21 15:05:00 EST, Height, 77.5, [...] 04/03/22 11:15:00 EST, Route to Pharmacy Electronically, [facility] #18152, Partial fill upon patient request if the [...] Confirmed Active Vertigo Confirmed 02/15/11 Active 1colo 36760pzvb 36668tkr 2001 negative [id number]; repeat 00961supl 38275yokj 2018 Social History Social History Type Response Smoking Status Never smoker entered on: 09/28/15 Sex Male Implantable Device List Procedure Provider Procedure Date Device Type Site Repair Hernia Inguinal Mal DOCyndi O 07/15/19 Unknown Groin Right Open Device Serial Lot or Manufacturing Expiration Distinct MRI Implan table Assigning Identifier Number Batch Date Date Identification Safety Status Authority Number Code Unknown Unknown [id number] Unknown 09/16/22 Unknown Unknown Active Unknown 2 Patient Care team information Care Team PersonnelName: Fernando Martin MD Position: [facility] Primary Care Physician Member Role: PCP Address: Address: [address] [place] [address] Name: Leoncio Bowers RN Position: [facility] RN Member Role: Primary Care Nurse Care Team Related PersonsName: MINDY MEIER Address: home [address] [place] [id number] Name: LEONCIO CHI Address: home [facility]
--- OUTSIDE RECORDS SUMMARY | 2022-06-20 19:51 | XMS_ITS | Continuity of Care Document ---
:1965 Author Organization [facility] Adult Address [address] [place] [address]- Care Team Providers Name Role Phone Fernando Martin MD Primary Care Physician [place] [facility] [place](s): 08/20/19 - 08/27/19 [facility] [address] [place] [address] [facility] Encounter Diagnosis Asthma (Discharge Diagnosis) - 08/20/19 DVT, lower extremity (Discharge Diagnosis) - 08/20/19 Prothrombin mutation (Discharge Diagnosis) - 08/20/19 Heavy alcohol use (Discharge Diagnosis) - 08/20/19 Syncope (Discharge Diagnosis) - 08/20/19 Depression (Discharge Diagnosis) - 08/20/19 Attending Physician: Fernando Martin MD Allergies, Adverse [...] 08/20/19 8:46:00 EDT, Route to Pharmacy Electronically, [id number], [facility] #[id number], 183, cm, 07/24/19 10:31:00 EST, Height... Start Date: 08/20/19 Stop Date: 08/14/20 Status: OrderedEliquis 2.5 mg oral tablet 1 tablet = 2.5 mg, By Mouth, 2 times a day, # 60 tablet, 11 Refills, Maintenance, 08/20/19 8:40:00 EDT, Tablet, [facility] #[id number], 183, cm, 07/24/19 10:31:00 EST, Height, 78.5, [...] 08/20/19 8:46:00 EDT, Route to Pharmacy Electronically, [id number], [facility] #[id number], 183, cm... Start Date: 08/20/19 Stop Date: 08/14/20 Status: Orderedsertraline 100 mg oral tablet 1 tablet = 100 mg, By Mouth, Daily, # 30 tablet, 11 Refills, Maintenance, 08/20/19 8:45:00 EDT, Tablet, [facility] #[id number], 183, cm, 07/24/19 10:31:00 EST, Height, 78.5, kg, 07/15/19 6:56:00 EST, Dry Weight Start Date: 08/20/19 Status: OrderedVitamin B12 1000 mcg oral tablet 1 tablet = 1,000 mcg, By Mouth, Daily, # 30 tablet, 11 Refills, Maintenance, 08/20/19 8:46:00 EDT, Tablet, [facility] #[id number], 183, cm, 07/24/19 10:31:00 EST, Height, 78.5, [...] Polyp of rectum(Confirmed)4 Active Syncope(Confirmed) Active 1colo 84732ydd 2000 negative [id number]; repeat 21646iyil 2017 Diagnosis Diagnosis Type Effective Dates Health Clinical Infor mant Status Service Asthma Discharge 08/20/19 Diagnosis DVT, lower Discharge 08/20/19 extremity Diagnosis Prothrombin Discharge 08/20/19 mutation Diagnosis Heavy alcohol use Discharge 08/20/19 Diagnosis Syncope Discharge 08/20/19 Diagnosis Depression Discharge 08/20/19 Diagnosis Social History Social History Type Response Smoking Status Never smoker entered on: 09/28/15 Sex Male Medical Equipment Implanted Date:07/15/19 Target Site:Groin Right Description Quantity MRI Company Model PATCH HERNIA PROLENE MEDIUM - [facility]C 1 Ethico n/j&j Wound Closure Unknown (ETPHSM6) FORTINO: No Information Assigning Authority: FDA
--- OUTSIDE RECORDS SUMMARY | 2022-06-20 19:51 | XMS_ITS | Continuity of Care Document ---
:1965 Author Organization [facility] Address [address] [place] [address]- Care Team Providers Name Role Phone Fernando Martin MD Primary Care Physician Encounter [facility] Date(s): 05/08/22 - 06/07/22 [facility] [address] [place] [address]- Allergies, Adverse Reactions, Alerts No Known Allergies [...] tablet, 5 Refills, Maintenance, 01/29/22 11:05:00 EDT, [facility] #[id number], 183, cm, 01/17/22 9:17:00 EDT, Height Start Date: 01/29/22 Status: Orderedescitalopram 20 mg oral tablet 1 tablet = 20 mg, By Mouth, Daily, # 30 tablet, 11 Refills, Maintenance, 01/17/22 9:39:00 EDT, Tablet, [facility] #[id number], Partial fill upon patient request if the prescription is for a schedule II opioid drug., 183, cm, 01/17/22 9:17:00 EDT,... Start Date: 01/17/22 Stop Date: 01/12/23 Status: Orderedfolic acid 1 mg oral tablet 1 mg, 1, tablet, By Mouth, Daily, # 30 tablet, Refills 5, Tot. Refills 5, Maintenance, 05/11/22 9:41:00 EST, Route to Pharmacy Electronically, [facility] #[id number], 183, cm, 04/03/22 10:51:00 EST, Height Start Date: 05/11/22 Stop Date: 11/07/22 Status: OrderedK-Tab 20 mEq oral tablet, extended release 1 tablet = 20 mEq, By Mouth, Daily, # 30 tablet, 11 Refills, Maintenance, 04/03/22 11:09:00 EST, [facility] #[id number], Partial fill upon patient request if the [...] 05/08/22 10:26:00 EST, Route to Pharmacy Electronically, [facility] #[id number], Partial fill upon patient request if the prescription is for a schedule II op... Start Date: 05/08/22 Status: OrderedLevoxyl 0.025 mg oral tablet 1 tablet = 25 mcg, By Mouth, Daily, # 30 tablet, 11 Refills, Maintenance, 01/17/22 9:40:00 EDT, Tablet, [facility] #43598, Partial fill upon patient request if the prescription is for a schedule II opioid drug., 183, cm, 01/17/22 9:17:00 EDT... Start Date: 01/17/22 Status: Orderedmagnesium oxide 400 mg oral tablet 1 tablet = 400 mg, By Mouth, Daily, for 30 days, APPOINTMENT NEEDED FOR FURTHER REFILLS, # 30 tablet, 2 Refills, Acute 08/29/22 12:08:00 EDT, 05/31/22 12:08:00 EST, [facility] #[id number], Partialfill upon patient request if the prescription is... Start Date: 05/31/22 Stop Date: 08/29/22 Status: Orderedmidodrine 5 mg oral tablet 5 mg, 1, tablet, By Mouth, Daily, # 30 tablet, Refills 1, Tot. Refills 1, Maintenance, 05/31/22 10:58:00 EST, Route to Pharmacy Electronically, [facility] #[id number], Partial fill upon patient request if the [...] 01/17/22 9:33:00 EDT, Route to Pharmacy Electronically, [id number], [facility] #[id number], 183, cm, 01/17/22 9:17:00 EDT, Height Start Date: 01/17/22 Status: OrderedVentolin HFA 108 mcg/inh inhalation aerosol with adapter 2 puffs, Inhalation, Every 4 hours, # 8.5 Gm, 11 Refills, Maintenance, 03/30/22 12:03:00 EST, [facility] #08638, Partial fill upon patient request if the prescription is for a schedule II opioid drug., 183, cm, 01/17/22 9:17:00 EDT, Height Start Date: 03/30/22 Status: Orderedvitamin A 8000 u oral capsule 1 capsule = 8,000 units, By Mouth, Daily, # 100 capsule, 11 Refills, Maintenance, 01/03/22 13:40:00 EDT, [facility] #[id number], Partial fill upon patient request if the prescription is for a schedule II opioid drug., 183, cm, 11/02/21 10:11:00 E... Start Date: 01/03/22 Status: OrderedVitamin B12 1000 mcg oral tablet 1 tablet = 1,000 mcg, By Mouth, Daily, # 30 tablet, 11 Refills, Maintenance, 04/25/21 15:06:00 EST, Tablet, [facility] #36012, 183, cm, 04/25/21 15:05:00 EST, Height, 77.5, [...] 04/03/22 11:15:00 EST, Route to Pharmacy Electronically, [facility] #[id number], Partial fill upon patient request if the [...] Confirmed Active Vertigo Confirmed 02/15/11 Active 1colo 40352zhgh 32139yjl 2000 negative [id number]; repeat 41824tbxz 81234ccny 2018 Social History Social History Type Response Smoking Status Never smoker entered on: 09/28/15 Sex Male Implantable Device List Procedure Provider Procedure Date Device Type Site Repair Hernia Inguinal Mal DO, Cyndi O 07/15/19 Unknown Groin Right Open Device Serial Lot or Manufacturing Expiration Distinct MRI Implan table Assigning Identifier Number Batch Date Date Identification Safety Status Authority Number Code Unknown Unknown [id number] Unknown 09/16/22 Unknown Unknown Active Unknown 2 Patient Care team information Care Team PersonnelName: Veronica DENIS, Fernando Kwok Position: [facility] Primary Care Physician Member Role: PCP Address: Address: [address] [place] [address]- Name: Leoncio Bowers RN Position: [facility] RN Member Role: Primary Care Nurse Care Team Related PersonsName: MINDY MEIER Address: home [address] [place] [id number] Name: LEONCIO CHI Address: [facility]
--- OUTSIDE RECORDS SUMMARY | 2022-06-20 19:51 | XMS_ITS | Continuity of Care Document ---
:1965 Author Organization [facility] Adult Address [address] [place] [address]- Care Team Providers Name Role Phone Veronica DENIS, Fernando Kwok Primary Care Physician [place] [facility] [place](s): 06/29/21 - 07/06/21 [facility] [address] [place] [address]- Attending Physician: Ziyad FERGUSON, Yusra Hampton Allergies, [...] tablet, 6 Refills, Maintenance, 06/29/21 8:02:00 EST, [facility] #[id number], Partial fill upon patient request if the prescription is for a schedule II opioid drug., 183, cm, 06/29/21 7:54:00 EST, Height,... Start Date: 06/29/21 Status: Orderedfolic acid 1 mg oral tablet 1 mg, 1, tablet, By Mouth, Daily, # 30 tablet, Refills 11, Tot. Refills 11, Maintenance, 04/28/21 10:47:00 EST, Route to Pharmacy Electronically, [facility] #[id number], 183, cm, 04/25/21 15:05:00EST, Height, 77.5, kg, 11/08/19 18:47:00 EDT, Dry... Start Date: 04/28/21 Stop Date: 04/23/22 Status: Orderedlactulose 10 gm/15 ml oral syrup 30 mL = 20 Gm, By Mouth, 3 times a day, # 480 mL, 11 Refills, Maintenance, 04/25/21 15:06:00 EST, Syrup, [facility] #[id number], Partial fill upon patient request if the prescription is for a schedule II opioid drug., 30 mL By Mouth 3 times a day... Start Date: 04/25/21 Status: OrderedLasix 40 mg oral tablet 40 mg, 1, tablet, By Mouth, Daily, # 30 tablet, Refills 11, Tot. Refills 11, Maintenance, 04/25/21 15:06:00 EST, Route to Pharmacy Electronically, [facility] #[id number], Partial fill upon patientrequest if the prescription is for a schedule II... Start Date: 04/25/21 Status: OrderedLexapro 10 mg oral tablet 1 tablet = 10 mg, By Mouth, Daily, # 30 tablet, 11 Refills, Maintenance, 06/19/21 11:21:00 EST, Tablet, [facility] #[id number], Partial fill upon patient request if the prescription is for a schedule II opioid drug., 183, cm, 04/25/21 15:05:00 ES... Start Date: 06/19/21 Stop Date: 06/14/22 Status: Orderedmagnesium oxide 400 mg oral tablet 1 tablet = 400 mg, By Mouth, Daily, for 30 days, # 30 tablet, 11 Refills, Acute 04/23/22 10:49:00 EST, 04/28/21 10:49:00 EST, Tablet, [facility] #[id number], Partial fill upon patient request if the prescription is for a schedule II opioid drug.,... Start Date: 04/28/21 Stop Date: 04/23/22 Status: Orderedmeclizine 25 mg oral tablet 1 tablet = 25 mg, By Mouth, 3 times a day, PRN for dizziness, # 30 tablet, 0 Refills, Acute :00:00 EST, 06/29/21 8:06:00 EST, Tablet, [facility] #[id number], Partial fill upon patient request if the prescription is for a schedule II opi... Start Date: 06/29/21 Stop Date: 07/20/21 Status: OrderedMultivitamin Daily, 0 Refills, Maintenance, 05/03/20 [...] Gm, Refills 5, Route to Pharmacy Electronically, [id number], [facility] #[id number], 183, cm, 05/01/21 6:58:00 EST, Height, 77.5, kg, 11/08/19 18:47:00 EDT, Dry Weight Start Date: 06/16/21 Status: Orderedspironolactone 100 mg oral tablet 100 mg, 1, tablet, By Mouth, Daily, # 30 tablet, Refills 11, Tot. Refills 11, Maintenance, 04/25/21 15:06:00 EST, Route to Pharmacy Electronically, [facility] #[id number], Partial fill upon patient request if the prescription is for a schedule II... Start Date: 04/25/21 Status: OrderedVitamin B12 1000 mcg oral tablet 1 tablet = 1,000 mcg, By Mouth, Daily, # 30 tablet, 11 Refills, Maintenance, 04/25/21 15:06:00 EST, Tablet, [facility] #13604, 183, cm, 04/25/21 15:05:00 EST, Height, 77.5, [...] Active Syncope(Confirmed) Active Vertigo(Confirmed) 02/15/11 Active 1colo 02179asne 34188mhu 2000 negative [id number]; repeat 99193jdvw 31281sjzg 2017 Vital Signs Most recent to oldest [Reference Range]: 1 Height 183 cm (06/29/21 7:54 AM) Weight 82.5 kg (06/29/21 7:54 AM) Oxygen Saturation [94-100 %] 100 % (06/29/21 7:54 AM) Pulse Rate [55-90 bpm] 94 bpm *H* (06/29/21 7:54 AM) Body Mass Index [18.5-24.99] 24.63 (06/29/21 7:54 AM) Blood Pressure [90-138/55-84 mm Hg] 120/60 mm Hg (06/29/21 7:54 AM) Respiratory Rate [16-30 br/min] 18 br/min (06/29/21 7:54 AM) Temperature [96.8-100.4 DegF] 98.0 DegF (06/29/21 7:54 AM) Mode of Delivery (Oxygen) Room air (06/29/21 7:54 AM) Blood pressure sites Arm, right (06/29/21 7:54 AM) Temperature Route Oral (06/29/21 7:54 AM) Weight Obtained Via Standing scale (06/29/21 7:54 AM) Social History Social History Type Response Smoking Status Never smoker entered on: 09/28/15 Sex Male Medical Equipment Implanted Date:07/15/19 Target Site:Groin Right Description Quantity MRI Company Model PATCH HERNIA PROLENE MEDIUM - ETHC 1 Ethico n/j&j Wound Closure Unknown (ETPHSM6) FORTINO: No Information Assigning Authority: FDA
--- OUTSIDE RECORDS SUMMARY | 2022-06-20 19:51 | XMS_ITS | Continuity of Care Document ---
:1965 Author Organization [facility] Adult Address [address] [place] [address]- Care Team Providers Name Role Phone Veronica DENIS, Fernando Kwok Primary Care Physician [place] [facility] [place]): 06/29/19 - 07/09/19 [facility] [address] [place] [address]- [facility] Attending Physician: Admtr, Ar8 Allergies, Adverse [...] 09/29/18 8:16:03 EDT, Route to Pharmacy Electronically, [id number], [facility] Start Date: 09/29/18 Stop Date: 09/24/19 Status: [...] 03/30/19 15:17:48 EST, Route to Pharmacy Electronically, [id number], [facility] #[id number] Start Date: 03/30/19 Stop Date: 03/24/20 Status: OrderedSEROquel 25 mg oral tablet 25 mg, 1, tablet, By Mouth, 2 times a day, # 60 tablet, Refills 1, Tot. Refills 1, Maintenance, 12/25/18 8:04:20 EDT, Route to Pharmacy Electronically, [id number], [facility] #[id number] Start Date: 12/25/18 Stop Date: 02/23/19 Status: [...] Polyp of rectum(Confirmed)4 Active Syncope(Confirmed) Active 1colo 74233acx 2000 negative [id number]; repeat 34636geyb 2017 Social History Social History Type Response Smoking Status Never smoker entered on: 09/28/15 Sex Male
--- OUTSIDE RECORDS SUMMARY | 2022-06-20 19:51 | XMS_ITS | Continuity of Care Document ---
:1965 Author Organization [facility] Address [address] [place] [address]- Care Team Providers Name Role Phone Veronica DENIS, Fernando Kwok Primary Care Physician Encounter [facility] [place] Date(s): 08/22/21 - 08/29/21 [facility] [address] [place] [address]- Attending Physician: Not on Staff, Attending MD [...] tablet, 6 Refills, Maintenance, 06/29/21 8:02:00 EST, [facility] #[id number], Partial fill upon patient request if the prescription is for a schedule II opioid drug., 183, cm, 06/29/21 7:54:00 EST, Height,... Start Date: 06/29/21 Status: Orderedfolic acid 1 mg oral tablet 1 mg, 1, tablet, By Mouth, Daily, # 30 tablet, Refills 11, Tot. Refills 11, Maintenance, 04/28/21 10:47:00 EST, Route to Pharmacy Electronically, [facility] #[id number], 183, cm, 04/25/21 15:05:00EST, Height, 77.5, kg, 11/08/19 18:47:00 EDT, Dry... Start Date: 04/28/21 Stop Date: 04/23/22 Status: Orderedlactulose 10 gm/15 ml oral syrup 30 mL = 20 Gm, By Mouth, 3 times a day, # 480 mL, 11 Refills, Maintenance, 04/25/21 15:06:00 EST, Syrup, [facility] #[id number], Partial fill upon patient request if the prescription is for a schedule II opioid drug., 30 mL By Mouth 3 times a day... Start Date: 04/25/21 Status: OrderedLasix 40 mg oral tablet 40 mg, 1, tablet, By Mouth, Daily, # 30 tablet, Refills 11, Tot. Refills 11, Maintenance, 04/25/21 15:06:00 EST, Route to Pharmacy Electronically, [facility] #[id number], Partial fill upon patientrequest if the prescription is for a schedule II... Start Date: 04/25/21 Status: OrderedLexapro 10 mg oral tablet 1 tablet = 10 mg, By Mouth, Daily, # 30 tablet, 11 Refills, Maintenance, 06/19/21 11:21:00 EST, Tablet, [facility] #46755, Partial fill upon patient request if the prescription is for a schedule II opioid drug., 183, cm, 04/25/21 15:05:00 ES... Start Date: 06/19/21 Stop Date: 06/14/22 Status: Orderedmagnesium oxide 400 mg oral tablet 1 tablet = 400 mg, By Mouth, Daily, for 30 days, # 30 tablet, 11 Refills, Acute 04/23/22 10:49:00 EST, 04/28/21 10:49:00 EST, Tablet, [facility] #91303, Partial fill upon patient request if the [...] 08/04/21 10:46:00 EDT, Route to Pharmacy Electronically, [facility] #[id number], Partial fill upon patient request if [...] 08/22/21 10:48:00 EDT, Route to Pharmacy Electronically, [id number], [facility] #[id number], 183, cm, 08/22/21 10:40:00 EDT, Height, 77.5, kg, ... Start Date: 08/22/21 Status: Orderedspironolactone 100 mg oral tablet 100 mg, 1, tablet, By Mouth, Daily, # 30 tablet, Refills 11, Tot. Refills 11, Maintenance, 04/25/21 15:06:00 EST, Route to Pharmacy Electronically, [facility] #[id number], Partial fill upon patient request if the prescription is for a schedule II... Start Date: 04/25/21 Status: OrderedVitamin B12 1000 mcg oral tablet 1 tablet = 1,000 mcg, By Mouth, Daily, # 30 tablet, 11 Refills, Maintenance, 04/25/21 15:06:00 EST, Tablet, [facility] #[id number], 183, cm, 04/25/21 15:05:00 EST, Height, 77.5, [...] moderate(Confirmed) Syncope(Confirmed) Active Vertigo(Confirmed) 02/15/11 Active 1colo 99306jnqh 28760zeu 2000 negative heanizau59065; repeat 44493yejt 31622opms 2017 Vital Signs Most recent to oldest [Reference Range]: 1 2 Height 183 cm 183 cm (08/22/21 10:40 AM) (08/22/21 10:29 AM) Weight 84.5 kg (08/22/21 10:29 AM) Oxygen Saturation [94-100 %] 98 % (08/22/21 10:29 AM) Pulse Rate [55-90 bpm] 72 bpm (08/22/21 10:29 AM) Body Mass Index [18.5-24.99] 25.23 *H* (08/22/21 10:29 AM) Blood Pressure [90-138/55-84 mm Hg] 146/70 mm Hg 152/ 82 mm Hg *H* *H* (08/22/21 10:40 AM) (08/22/21 10:29 AM) Respiratory Rate [16-30 br/min] 20 br/min (08/22/21 10:29 AM) Mode of Delivery (Oxygen) Room air (08/22/21 10:29 AM) Blood pressure sites Arm, right Arm, right (08/22/21 10:40 AM) (08/22/21 10:29 AM) Weight Obtained Via Standing scale (08/22/21 10:29 AM) Social History Social History Type Response Smoking Status Never smoker entered on: 09/28/15 Sex Male Medical Equipment Implanted Date:07/15/19 Target Site:Groin Right Description Quantity MRI Company Model PATCH HERNIA PROLENE MEDIUM - ETHC 1 Ethico n/j&j Wound Closure Unknown (ETPHSM6) FORTINO: No Information Assigning Authority: FDA
--- OUTSIDE RECORDS SUMMARY | 2022-06-20 19:51 | XMS_ITS | Continuity of Care Document ---
:1965 Author Organization [facility] Adult Address [address] [place] [address]- Care Team Providers Name Role Phone Veronica DENIS, Fernando Kwok Primary Care Physician [place] [facility] [place] [facility] [address] [place] [address]- Attending Physician: Admtr, Ar8 Allergies, Adverse Reactions, [...] tablet, 6 Refills, Maintenance, 06/29/21 8:02:00 EST, [facility] #[id number], Partial fill upon patient request if the prescription is for a schedule II opioid drug., 183, cm, 06/29/21 7:54:00 EST, Height,... Start Date: 06/29/21 Status: Orderedfolic acid 1 mg oral tablet 1 mg, 1, tablet, By Mouth, Daily, # 30 tablet, Refills 11, Tot. Refills 11, Maintenance, 04/28/21 10:47:00 EST, Route to Pharmacy Electronically, [facility] #[id number], 183, cm, 04/25/21 15:05:00EST, Height, 77.5, kg, 11/08/19 18:47:00 EDT, Dry... Start Date: 04/28/21 Stop Date: 04/23/22 Status: Orderedlactulose 10 gm/15 ml oral syrup 30 mL = 20 Gm, By Mouth, 3 times a day, # 480 mL, 11 Refills, Maintenance, 04/25/21 15:06:00 EST, Syrup, [facility] #[id number], Partial fill upon patient request if the prescription is for a schedule II opioid drug., 30 mL By Mouth 3 times a day... Start Date: 04/25/21 Status: OrderedLasix 40 mg oral tablet 40 mg, 1, tablet, By Mouth, Daily, # 30 tablet, Refills 11, Tot. Refills 11, Maintenance, 04/25/21 15:06:00 EST, Route to Pharmacy Electronically, [facility] #[id number], Partial fill upon patientrequest if the prescription is for a schedule II... Start Date: 04/25/21 Status: OrderedLexapro 10 mg oral tablet 1 tablet = 10 mg, By Mouth, Daily, # 30 tablet, 11 Refills, Maintenance, 06/19/21 11:21:00 EST, Tablet, [facility] #[id number], Partial fill upon patient request if the prescription is for a schedule II opioid drug., 183, cm, 04/25/21 15:05:00 ES... Start Date: 06/19/21 Stop Date: 06/14/22 Status: Orderedmagnesium oxide 400 mg oral tablet 1 tablet = 400 mg, By Mouth, Daily, for 30 days, # 30 tablet, 11 Refills, Acute 04/23/22 10:49:00 EST, 04/28/21 10:49:00 EST, Tablet, [facility] #[id number], Partial fill upon patient request if the [...] Gm, Refills 5, Route to Pharmacy Electronically, [id number], [facility] #[id number], 183, cm, 05/01/21 6:58:00 EST, Height, 77.5, kg, 11/08/19 18:47:00 EDT, Dry Weight Start Date: 06/16/21 Status: Orderedspironolactone 100 mg oral tablet 100 mg, 1, tablet, By Mouth, Daily, # 30 tablet, Refills 11, Tot. Refills 11, Maintenance, 04/25/21 15:06:00 EST, Route to Pharmacy Electronically, [facility] #[id number], Partial fill upon patient request if the prescription is for a schedule II... Start Date: 04/25/21 Status: OrderedVitamin B12 1000 mcg oral tablet 1 tablet = 1,000 mcg, By Mouth, Daily, # 30 tablet, 11 Refills, Maintenance, 04/25/21 15:06:00 EST, Tablet, [facility] #[id number], 183, cm, 04/25/21 15:05:00 EST, Height, 77.5, [...] Active Syncope(Confirmed) Active Vertigo(Confirmed) 02/15/11 Active 1colo 95192nlcd 40252pps 2001 negative [id number]; repeat 56538wrxs 00264nitr 2018 Procedures Procedure Date Related Diagnosis Body [...]
--- OUTSIDE RECORDS SUMMARY | 2022-06-20 19:51 | XMS_ITS | Continuity of Care Document ---
:[address] [facility] Adult Address [address] [place] [address]- Care Team Providers Name Role Phone Fernando Martin MD Primary Care Physician Encounter [facility] [place] Date(s): 05/01/19 - 05/08/19 [facility] Adult [address] [place] [address]- [facility] Encounter Diagnosis Acute pulmonary embolism (Discharge Diagnosis) - 05/01/19 Heavy alcohol use (Discharge Diagnosis) - 05/01/19 Attending Physician: Fernando Martin MD Allergies, Adverse [...] 09/29/18 8:16:03 EDT, Route to Pharmacy Electronically, [id number], [facility] [id number] Start Date: 09/29/18 Stop Date: 09/24/19 Status: [...] 03/30/19 15:17:48 EST, Route to Pharmacy Electronically, [id number], [facility] #[id number] Start Date: 03/30/19 Stop Date: 03/24/20 Status: OrderedSEROquel 25 mg oral tablet 25 mg, 1, tablet, By Mouth, 2 times a day, # 60 tablet, Refills 1, Tot. Refills 1, Maintenance, 12/25/18 8:04:20 EDT, Route to Pharmacy Electronically, [id number], [facility] #[id number] Start Date: 12/25/18 Stop Date: 02/23/19 Status: [...] Polyp of rectum(Confirmed)4 Active Syncope(Confirmed) Active 1colo 48907rwc 2000 negative zzpjfinc90773; repeat 80155ejmp 2017 Diagnosis Diagnosis Type Effective Dates Health Status Clinical In formant Service Acute pulmonary Discharge 05/01/19 embolism Diagnosis Heavy alcohol Discharge 05/01/19 use Diagnosis Vital Signs Most recent to oldest [Reference Range]: 1 Height 182.88 cm (05/01/19 3:43 PM) Weight 81.6 kg (05/01/19 3:43 PM) Oxygen Saturation [94-100 %] 98 % (05/01/19 3:43 PM) Pulse Rate [55-90 bpm] 90 bpm (05/01/19 3:43 PM) Body Mass Index [18.5-24.99] 24.4 (05/01/19 3:43 PM) Blood Pressure [90-138/55-84 mm Hg] 94/62 mm Hg (05/01/19 3:43 PM) Mode of Delivery (Oxygen) Room air (05/01/19 3:43 PM) Blood pressure sites Arm, left (05/01/19 3:43 PM) Weight Obtained Via Standing scale (05/01/19 3:43 PM) Social History Social History Type Response Smoking Status Never smoker entered on: 09/28/15 Sex Male
--- OUTSIDE RECORDS SUMMARY | 2022-06-20 19:51 | XMS_ITS | Continuity of Care Document ---
:1965 Author Organization [facility] Adult Address [address] [place] [address]- Care Team Providers Name Role Phone Veronica DENIS, Fernando Kwok Primary Care Physician Encounter [facility] Date(s): 02/10/20 - 03/11/20 [facility] Adult [address] [place] [address]- [facility] Allergies, Adverse Reactions, Alerts Substance Reaction Severity [...] 08/20/19 8:46:00 EDT, Route to Pharmacy Electronically, [id number], [facility] #[id number], 183, cm, 07/24/19 10:31:00 EST, Height... Start [...] 11/10/19 10:53:00 EDT, Route to Pharmacy Electronically, [facility], 183, cm, 11/10/19 9:27:00 EDT, Height, 77.5, kg, 11/08/19 18:47:00 EDT, Dry Weight Start Date: 11/10/19 Status: Orderedmagnesium oxide 400 mg oral tablet 1 tablet = 400 mg, By Mouth, Daily, for 30 days, # 30 tablet, 0 Refills, Acute 03/12/20 12:19:00 EDT, 02/11/20 12:19:00 EDT, [facility] #[id number], 183, cm, 12/01/19 7:19:00 EDT, Height, 77.5, kg, 11/08/19 18:47:00 EDT, Dry Weight Start Date: 02/11/20 Stop Date: 03/12/20 Status: OrderedNasacort 0 Refills, Maintenance, 09/28/15 8:56:41 [...] tablet, 0 Refills, Maintenance, 12/01/19 7:32:00 EDT, [facility] #[id number], 183, cm, 12/01/19 7:19:00 EDT, Height, 77.5, kg, 11/08/19 18:47:00 EDT, Dry Weight Start Date: 12/01/19 Status: OrderedProAir HFA 90 mcg/inh inhalation aerosol with adapter 2, puffs, Inhalation, 4 times a day, for 30 days, # 1 each, Refills 11, Tot. Refills 11, Hard Stop 08/14/20 8:46:00 EDT, 08/20/19 8:46:00 EDT, Route to Pharmacy Electronically, [id number], [facility] #[id number], 183, cm... Start Date: 08/20/19 Stop Date: 08/14/20 Status: Orderedpyridoxine 100 mg oral tablet 1 tablet = 100 mg, By Mouth, Daily, # 30 tablet, 0 Refills, Maintenance, 11/10/19 10:52:00 EDT, Tablet, [facility], 183, cm, 11/10/19 9:27:00 EDT, Height, 77.5, kg, 11/08/19 18:47:00 EDT,Dry Weight Start Date: 11/10/19 Status: Orderedsertraline 100 mg oral tablet 1 tablet = 100 mg, By Mouth, Daily, # 30 tablet, 11 Refills, Maintenance, 08/20/19 8:45:00 EDT, Tablet, [facility] #[id number], 183, cm, 07/24/19 10:31:00 EST, Height, 78.5, kg, 07/15/19 6:56:00 EST, Dry Weight Start Date: 08/20/19 Status: Orderedthiamine 100 mg oral tablet 100 mg, 1, tablet, By Mouth, Daily, # 30 tablet, Refills 0, Tot. Refills 0, Maintenance, 11/10/19 10:52:00 EDT, Route to Pharmacy Electronically, [facility], 183, cm, 11/10/19 9:27:00 EDT, Height, 77.5, kg, 11/08/19 18:47:00 EDT, Dry Weight Start Date: 11/10/19 Status: OrderedVitamin B12 1000 mcg oral tablet 1 tablet = 1,000 mcg, By Mouth, Daily, # 30 tablet, 11 Refills, Maintenance, 08/20/19 8:46:00 EDT, Tablet, [facility] #[id number], 183, cm, 07/24/19 10:31:00 EST, Height, 78.5, [...] Polyp of rectum(Confirmed)4 Active Syncope(Confirmed) Active 1colo 10925eqj 2001 negative [id number]; repeat 21796rkhy 2017 Social History Social History Type Response Smoking Status Never smoker entered on: 09/28/15 Sex Male Medical Equipment Implanted Date:07/15/19 Target Site:Groin Right Description Quantity MRI Company Model PATCH HERNIA PROLENE MEDIUM - ETHC 1 Ethico n/j&j Wound Closure Unknown ([id number]) FORTINO: No Information Assigning Authority: FDA
--- OUTSIDE RECORDS SUMMARY | 2022-06-20 19:52 | XMS_ITS | Continuity of Care Document ---
:1965 Author Organization [facility] Adult Address [address] [place] [address]- Care Team Providers Name Role Phone Fernando Martin MD Primary Care Physician Encounter [facility] Date(s): 01/17/22 - 01/24/22 [facility] Adult [address] [place] [address]- Attending Physician: Fernando Martin MD Allergies, Adverse [...] tablet, 6 Refills, Maintenance, 06/29/21 8:02:00 EST, [facility] #[id number], Partial fill upon patient request if the prescription is for a schedule II opioid drug., 183, cm, 06/29/21 7:54:00 EST, Height,... Start Date: 06/29/21 Status: Orderedescitalopram 20 mg oral tablet 1 tablet = 20 mg, By Mouth, Daily, # 30 tablet, 11 Refills, Maintenance, 01/17/22 9:39:00 EDT, Tablet, [facility] #[id number], Partial fill upon patient request if the prescription is for a schedule II opioid drug., 183, cm, 01/17/22 9:17:00 EDT,... Start Date: 01/17/22 Stop Date: 01/12/23 Status: Orderedfolic acid 1 mg oral tablet 1 mg, 1, tablet, By Mouth, Daily, # 30 tablet, Refills 11, Tot. Refills 11, Maintenance, 04/28/21 10:47:00 EST, Route to Pharmacy Electronically, [facility] #[id number], 183, cm, 04/25/21 15:05:00EST, Height, 77.5, kg, 11/08/19 18:47:00 EDT, Dry... Start Date: 04/28/21 Stop Date: 04/23/22 Status: OrderedLasix 40 mg oral tablet 40 mg, 1, tablet, By Mouth, Daily, # 30 tablet, Refills 11, Tot. Refills 11, Maintenance, 04/25/21 15:06:00 EST, Route to Pharmacy Electronically, [facility] #[id number], Partial fill upon patientrequest if the prescription is for a schedule II... Start Date: 04/25/21 Status: OrderedLevoxyl 0.025 mg oral tablet 1 tablet = 25 mcg, By Mouth, Daily, # 30 tablet, 11 Refills, Maintenance, 01/17/22 9:40:00 EDT, Tablet, [facility] #[id number], Partial fill upon patient request if the prescription is for a schedule II opioid drug., 183, cm, 01/17/22 9:17:00 EDT... Start Date: 01/17/22 Status: Orderedmagnesium oxide 400 mg oral tablet 1 tablet = 400 mg, By Mouth, Daily, for 30 days, # 30 tablet, 11 Refills, Acute 04/23/22 10:49:00 EST, 04/28/21 10:49:00 EST, Tablet, [facility] #[id number], Partial fill upon patient request if the prescription is for a schedule II opioid drug.,... Start Date: 04/28/21 Stop Date: 04/23/22 Status: Orderedmeclizine 25 mg oral tablet 1 tablet, By Mouth, 3 times a day, PRN NEEDED FOR DIZZINESS, # 30 tablet, 0 Refills, [facility] #[id number], 183, cm, 08/22/21 10:40:00 EDT, Height, 77.5, [...] 08/04/21 10:46:00 EDT, Route to Pharmacy Electronically, [facility] #[id number], Partial fill upon patient request if the [...] 01/17/22 9:33:00 EDT, Route to Pharmacy Electronically, [id number], [facility] #[id number], 183, cm, 01/17/22 9:17:00 EDT, Height Start Date: 01/17/22 Status: Orderedvitamin A 8000 u oral capsule 1 capsule = 8,000 units, By Mouth, Daily, # 100 capsule, 11 Refills, Maintenance, 01/03/22 13:40:00 EDT, [id number], Partial fill upon patient request if the prescription is for a schedule II opioid drug., 183, cm, 11/02/21 10:11:00 E... Start Date: 01/03/22 Status: OrderedVitamin B12 1000 mcg oral tablet 1 tablet = 1,000 mcg, By Mouth, Daily, # 30 tablet, 11 Refills, Maintenance, 04/25/21 15:06:00 EST, Tablet, [facility] #67090, 183, cm, 04/25/21 15:05:00 EST, Height, 77.5, [...] retinopathy(Confirmed) Active Low serum magnesium level(Confirmed) Active Hypothyroidism(Confirmed) Active Right groin pain(Confirmed) Active Action tremor(Confirmed) Active Left knee pain(Confirmed) Active Portal hypertensive Active gastropathy(Confirmed)5 Acute pulmonary embolism(Confirmed) Active Polyp of rectum(Confirmed)6 Active Depression, major, recurrent, Active moderate(Confirmed) Retinitis pigmentosa(Confirmed) Active Syncope(Confirmed) Active Vertigo(Confirmed) 02/15/11 Active 1colo 68370mhvl 43704rqr 2001 negative [id number]; repeat 07339kroe 73136jach 2017 Vital Signs Most recent to oldest [Reference Range]: 1 Height 183 cm (01/17/22 9:17 AM) Weight 80.8 kg (01/17/22 9:17 AM) Oxygen Saturation [94-100 %] 98 % (01/17/22 9:17 AM) Pulse Rate [55-90 bpm] 58 bpm (01/17/22 9:17 AM) Body Mass Index [18.5-24.99] 24.13 (01/17/22 9:17 AM) Blood Pressure [90-138/55-84 mm Hg] 110/58 mm Hg (01/17/22 9:17 AM) Mode of Delivery (Oxygen) Room air (01/17/22 9:17 AM) Blood pressure sites Arm, left (01/17/22 9:17 AM) Weight Obtained Via Standing scale (01/17/22 9:17 AM) Social History Social History Type Response Smoking Status Never smoker entered on: 09/28/15 Sex Male Implantable Device List Procedure Provider Procedure Date Device Type Site Repair Hernia Inguinal Cyndi Resendez DO 07/15/19 Unknown Groin Right Open Device Serial Lot or Manufacturing Expiration Distinct MRI Implan table Assigning Identifier Number Batch Date Date Identification Safety Status Authority Number Code Unknown Unknown [id number] Unknown 09/16/22 Unknown Unknown Active Unknown 2 Care Team PersonnelName: Fernando Martin MD Address: [address] [place] [address]
--- OUTSIDE RECORDS SUMMARY | 2022-06-20 19:52 | XMS_ITS ---
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 Problem Colon cancer Z12.11 Active 3980672 04 screening Problem Other specified K76.89 Active 2358 75515 diseases of liver ALLERGIES No Known Allergies ENCOUNTERS Encounter Location Date Diagnosis [facility] [address] [facility] [address] [place] [facility] [address] [facility] [address] [place] [facility] [address] [facility] [address] [place] [facility] [address] [facility] [address] [place] [facility] [address] [place] [facility] [address] [place] with ascites K70 .11 [facility] [address] [facility] [address] [place] with ascites K70 .11 [facility] [address] [facility] [address] [place] [facility] [address] [facility] [address] [place] [facility] [address], [place] [facility] [address] [place] with ascites K70 .11 [address] [facility] [address], [place] [facility] [address] [place] with ascites K70 .11 and [address] Colon cancer scr eening Z12.11 [facility] [address] [facility] [address] [place] [address] [facility] [address], [place] [facility] [address] [place] with ascites K70 .11 [address] [facility] [address] [facility] [address] [place] [address] [facility] [address], [facility] [address] [place] with ascites K70 .11 [address] [facility] [address] [facility] [address] [place] [address] [facility] [address], [place] [facility] [address] [place] with ascites K70 .11 [address] [facility] [address] [place], [place] [facility] [address] [place] with ascites K70 .11 [address] [facility] [address] [place], [place] [facility] [address] [place] with ascites K70 .11 [address] [facility] [address], [place] [facility] [address] [place] with ascites K70 .11 [address] [facility] Outpatient [address] [place] [address] May, Alcoholic hepat itis [place] [id number] with ascit es K70.11 [facility] [address], [place] [facility] [address] [place] with ascites K70 .11 [address] [facility] [address] [facility] [address] [place] [address] [facility] [address], [place] [facility] [address] [place] with ascites K70 .11 [address] [facility] [address], [place] [address] [facility] [address], [place] [address] IMMUNIZATIONS Vaccine Route Administration Date Status Influenza Unknown Mar 28, 2022 Administered Influenza Unknown Jan 18, 2021 Administered Influenza Unknown Feb 24, 2020 Administered SOCIAL HISTORY Qualifiers Date Never Smoker REASON FOR REFERRAL FUNCTIONAL STATUS PLAN OF CARE Activity Details Follow Up 3 Months Reason: Future Appointment Provider Name:Jorge mcbride , 2022-07-16 11:40:00 AM, [address] , [place], [address], Future Test CHEM 7 PROFILE 20220418 Future Test LIVER PROFILE 20220418 Future Test PROTHROMBIN TIME (PT, INR) 2 5024404 Future Test CBC w DIFF 20220418 Pending [...] W GUIDANCE Future/Pending Procedure UPPER GI ENDOSCOPY [id number] VITAL SIGNS Weight 210 lbs 2022-04-09 Weight [...] Red Blood Cells 2022-03-05 Red Blood Cells [id number] OP RC Red Blood Cells TRANSFUSED 03/06/221603 Red Blood Cells [id number] OP RC Red Blood Cells TRANSFUSED 03/06/222017 Red Blood Cells [id number] OP RC Red Blood Cells TRANSFUSED 03/05/221958 [...] 0.0-0.2 NRBC Abs Auto 0.000 0.0-0.012 Comprehensive [place]. Panel Fast 2021-11-02 Sodium 139 135-145 Potassium [...] A0-A1 Nec Inflam Act Interpretation SEE NOTE HNV-Qbrkt-8-Macroglobulin 239 106-27 9 FIB-Haptoglobin 85 43-212 FIB-Apolipoprotein A1 169 94-176 FIB-Total Bilirubin 4.1 0.2-1.2 FIB-GGT 415 3-85 FIB-ALT 25 9-46 Reference ID [id number] Footnote SEE NOTE SLIDE REVIEW 2021-09-05 SLIDE [...] 10.8-13.0 INTERNATIONAL NORM RATIO 1.3 0.9-1.1 Comprehensive [place]. Panel Fast 2020-05-24 Sodium 137 135-145 Potassium [...] requesting appt for son/dx cirrhosis Insurance Providers [facility] Health Member Patient Patient Patient Patient Patient Subscriber Subscriber Subscriber Group Insurance Plan Plan Plan Plan ID Relationship Address Phone Name Date of ID Name Date of No Type Insurance Insurance Insurance Coverage to Subscriber Address Phone Name Dates MEDICAID [phone] MEDICAID self FAM [id number] [address] [place] [address] [place] [address] [facility] [id number]
--- OUTSIDE RECORDS SUMMARY | 2022-06-20 19:52 | XMS_ITS | Continuity of Care Document ---
:1965 Author Organization [facility] Adult Address [address] [place] [address]- Care Team Providers Name Role Phone Veronica DENIS, Fernando Kwok Primary Care Physician Encounter [facility] [place] Date(s): 05/01/21 - 05/31/21 [facility] [address] [place] [address]- Attending Physician: Admtr, Ar8 Allergies, Adverse Reactions, [...] tablet, 0 Refills, Maintenance, 05/01/21 7:15:00 EST, [facility] #[id number], Partial fill upon patient request if the prescription is for a schedule II opioid drug., 183, cm, 05/01/21 6:58:00 EST, Height,... Start Date: 05/01/21 Status: Orderedfolic acid 1 mg oral tablet 1 mg, 1, tablet, By Mouth, Daily, # 30 tablet, Refills 11, Tot. Refills 11, Maintenance, 04/28/21 10:47:00 EST, Route to Pharmacy Electronically, [facility] #[id number], 183, cm, 04/25/21 15:05:00EST, Height, 77.5, kg, 11/08/19 18:47:00 EDT, Dry... Start Date: 04/28/21 Stop Date: 04/23/22 Status: Orderedlactulose 10 gm/15 ml oral syrup 30 mL = 20 Gm, By Mouth, 3 times a day, # 480 mL, 11 Refills, Maintenance, 04/25/21 15:06:00 EST, Syrup, [facility] #38145, Partial fill upon patient request if the prescription is for a schedule II opioid drug., 30 mL By Mouth 3 times a day... Start Date: 04/25/21 Status: OrderedLasix 40 mg oral tablet 40 mg, 1, tablet, By Mouth, Daily, # 30 tablet, Refills 11, Tot. Refills 11, Maintenance, 04/25/21 15:06:00 EST, Route to Pharmacy Electronically, [facility] #[id number], Partial fill upon patientrequest if the prescription is for a schedule II... Start Date: 04/25/21 Status: OrderedLexapro 10 mg oral tablet 1 tablet = 10 mg, By Mouth, Daily, # 30 tablet, 11 Refills, Maintenance, 06/19/21 11:21:00 EST, Tablet, [facility] #[id number], Partial fill upon patient request if the prescription is for a schedule II opioid drug., 183, cm, 04/25/21 15:05:00 ES... Start Date: 06/19/21 Stop Date: 06/14/22 Status: Orderedmagnesium oxide 400 mg oral tablet 1 tablet = 400 mg, By Mouth, Daily, for 30 days, # 30 tablet, 11 Refills, Acute 04/23/22 10:49:00 EST, 04/28/21 10:49:00 EST, Tablet, [facility] #53604, Partial fill upon patient request if the [...] times a day, # 8.5 Gm, Refills 0, Route to Pharmacy Electronically, [id number], [facility] #[id number], 183, cm, 05/01/21 6:58:00 EST, Height, 77.5, kg, 11/08/19 18:47:00 EDT, Dry Weight Start Date: 05/26/21 Status: Orderedspironolactone 100 mg oral tablet 100 mg, 1, tablet, By Mouth, Daily, # 30 tablet, Refills 11, Tot. Refills 11, Maintenance, 04/25/21 15:06:00 EST, Route to Pharmacy Electronically, [facility] #[id number], Partial fill upon patient request if the prescription is for a schedule II... Start Date: 04/25/21 Status: OrderedVitamin B12 1000 mcg oral tablet 1 tablet = 1,000 mcg, By Mouth, Daily, # 30 tablet, 11 Refills, Maintenance, 04/25/21 15:06:00 EST, Tablet, [facility] #37573, 183, cm, 04/25/21 15:05:00 EST, Height, 77.5, [...] Polyp of rectum(Confirmed)6 Active Syncope(Confirmed) Active 1colo 01074sggm 16058hpp 2001 negative odjzujsc00957; repeat 68649fkrt 96500ggrw 2018 Procedures Procedure Date Related Diagnosis Body [...]
[2022-06-20 20:00] LABS: Reflex Lactate? 2 Y
--- NOTE | 2022-06-20 20:02 | MHC.EDTECH ---
pt hit his right forarm of the side rail ,dressing apply ,rn antoine aware ,rail padded to prevent injury .
--- NOTE | 2022-06-20 20:12 | PHA.MEDREC ---
Pharmacy Consult ? Medication Reconciliation Pharmacy has completed the medication reconciliation. Med rec obtained from pharmacy, pt unable to respond to questions at current time
[2022-06-20 20:13] LABS: OBS Int Ctl Valid YES; OBS1 NEGATIVE (NEGATIVE)
[2022-06-20 21:03] LABS: ~Lactic Acid-LAB USE ONLY 3.3 mmol/L (0.5-2.0)
--- NOTE | 2022-06-20 21:03 | PC.NURSE ---
Chem Called: This nurse received a massage from chem lab that pt had lactic acid 3.3, provider has been notified.
--- NOTE | 2022-06-20 22:14 | PC.NURSE ---
Pharmacy lactulose bottle: Pt has 2 bottle in the pixies, it needs to be transported with the pt.
[2022-06-20] MEDS: Thiamine HCL 100 MG in 0.9 % Sodium Chloride 100 ML 202 MG IV (22:26)
[2022-06-21] MEDS: Lactulose 320 GM/480 ML SOLUTION 200 GM PR ×5 (02:57→17:24)
--- NOTE | 2022-06-21 06:06 | PC.NURSE ---
Re-Assess: Pt's V/S are stable, pt is asleep. pt is a/o x 1. Pt pupils a dilated 9mm.
[2022-06-21 06:10] VITALS: BP 107/60; PULSE 87; RESP 16; TEMP 37; O2SAT 96
[2022-06-21 06:22] LABS: Ammonia 59 umol/L (13-55)
[2022-06-21 07:05] LABS: MANUAL DIFF FLAG NO
[2022-06-21 07:06] LABS: Basophils Percent Auto 0.6 % (0-2); Eosinophils Absolute Auto 0.1 X10*3/uL (0.0-0.4); Eosinophils Percent Auto 2.3 % (0-4); Hematocrit 25.2 % (42.0-52.0); Hemoglobin 8.5 g/dl (14.0-18.0); Imm Gran Abs Auto 0.02 X10*3/uL (0.00-0.03); Imm Gran Pct Auto 0.4 % (0.0-0.4); Lymphocytes Absolute Auto 1.2 X10*3/uL (1.2-4.9); Lymphocytes Percent Auto 24.1 % (20-40); Mean Corpuscular HGB Conc 33.7 g/dl (31.0-36.0); Mean Corpuscular Hemoglobin 31.4 pg (27.0-33.0); Mean Platelet Volume 10.5 fL (9.4-12.4); Monocytes Absolute Auto 0.7 X10*3/uL (0.1-1.2); Monocytes Percent Auto 14.5 % (2-11); Neutrophils Percent Auto 58.1 % (45-73); Platelet Count 102 X10*3/uL (160-400); Red Blood Count 2.71 X10*6/uL (4.60-5.80); Red Cell Distribution Width 18.6 % (11.0-16.0); White Blood Count 5.1 X10*3/uL (4.8-10.8)
--- NOTE | 2022-06-21 07:28 | PC.NURSE ---
pt cleaned as he had lactulose on him, pt was able to follow commands and able to ask for a pillow, skin jaundiced warm and dry
[2022-06-21 07:36] LABS: Alanine Aminotransferase 22 U/L (0-40); Albumin Level 2.4 g/dL (3.5-5.0); Alkaline Phosphatase 151 U/L (39-117); Anion Gap 12 (12-20); Aspartate Amino Transferase 52 U/L (5-37); Blood Urea Nitrogen 19 mg/dL (9-16); Calcium 8.9 mg/dL (8.4-10.2); Carbon Dioxide 19 mmol/L (22-29); Chloride 112 mmol/L (96-108); Estimated Glomerular Filt Rate 37; Glucose Random 108 mg/dL (60-115); Potassium 4.6 mmol/L (3.3-5.1); Sodium 138 mmol/L (135-145); Total Protein 5.9 g/dL (6.5-8.0)
[2022-06-21 07:51] LABS: Thyroid Stimulating Hormone 3.18 uIU/mL (0.32-4.0)
--- NOTE | 2022-06-21 09:28 | MHC.CM.PN ---
Patient is here with AMS; CM spoke with Brother/HCP/Enzo at listed #. Patient lives in a house with his Mother/Caregiver and he required no DME GARMENT SEWER HAND. Home/self care vs Recovery Team intervention r/t ETOH is the tentative plan and CM has initiated and will follow for dc planning. Patient has received [employer] vax x3 and his PCP is Dr. Fernando Martin.
[2022-06-21 09:29] VITALS: BP 114/58; PULSE 79; RESP 16; TEMP 36.7; O2SAT 95
[2022-06-21 09:32] VITALS: BMI 23.3
[2022-06-21] MEDS: Thiamine HCL 100 MG in 0.9 % Sodium Chloride 100 ML 200 MG IV (09:46)
[2022-06-21] MEDS: 0.9 % Sodium Chloride Flush 3 ML SYRINGE IVFLUSH ×2 (09:49→17:22)
--- NOTE | 2022-06-21 14:14 | P.PNIM_ITS ---
Subjective Subjective Date of Service: 06/21/22 Interval History: Somnolent but easily arousable, moving all 4 extremities offers no acute complaints, no overnight events since admission no fever oxygenation stable at room air, currently is NPO. Review of Systems Review of Systems: Yes Unobtainable due to mental status Physical Exam Vital Signs: Vital Signs: Last Vital Signs Temp 98.0 F 06/21/22 09:29 Pulse 79 06/21/22 09:29 Resp 16 06/21/22 09:29 BP 114/58 L 06/21/22 09:29 Pulse Ox 95 06/21/22 09:29 O2 Del Method 06/21/22 09:29 BMI result Body Mass Index 23.3 Const: Other: General somnolent, easily arousable, in no distress Ne ck supple, no JVD Tachycardic with r egular rhythm, S1- S2 heard Regular b reath sounds bilat erally, no wheezin g or crackles appr eciated Abdomen so ft nontender, aleksey l sounds audible n o guarding, no rig idity Neuro, easil y arousable , movi ng all 4 extremiti es Extremities No pedal edema Skin j aundiced Objective Data Active Medications Thiamine HCl 100 mg/ Sodium (Chloride) 101 mls @ 202 mls/hr IV DAILY [facility] Last Admin: 06/21/22 09:46 Dose: 200 mls/hr Documented By: PETR Lactulose (Lactulose 320 Gm/480 Ml Solution) 200 gm ND Q4H [facility] Last Admin: 06/21/22 13:42 Dose: 200 gm Documented By: PETR Melatonin (Melatonin 3 Mg Tablet) 6 mg PO BEDTIME PRN PRN Reason: Insomnia Ondansetron HCl (Ondansetron Hcl 4 Mg/2 Ml Vial) 4 mg IVPUSH Q8H PRN PRN Reason: Nausea and Vomiting Pharmacy Consult (Consult Rx Perform Med Rec) 1 each MISCELLANE ONCE PRN PRN Reason: Consult order Sodium Chloride (0.9 % Sodium Chloride Flush 3 Ml Syringe) 3 ml IVFLUSH QSHIFT [facility] Last Admin: 06/21/22 09:49 Dose: 3 ml Documented By: PETR Labs 06/21/22 06:13 06/21/22 06:13 Labs: Laboratory Results - last 24 hr 06/20/22 06/20/22 06/20/22 15:13 15:13 15:13 MCV 92.3 MCH 31.3 MCHC 34.0 RDW 18.3 H Plt Count 114 L D MPV 10.1 Immature Gran % (Auto) 0.2 Neut % (Auto) 54.0 Lymph % (Auto) 27.8 [place] % (Auto) 15.1 H Eos % (Auto) 2.3 Baso % (Auto) 0.6 Lymph # (Auto) 1.4 [place]eman # (Auto) 0.7 Eos # (Auto) 0.1 Baso # (Auto) 0.0 Abs Immat Gran (auto) 0.01 Absolute Neuts (auto) 2.6 Absolute Nucleated RBC 0.000 Nucleated RBC % (auto) 0.0 PT 21.1 H INR 1.8 H D-Dimer High Sensitivty 5295 Anion Gap 10 L Estim Creat Clear Calc 44.1 Estimated GFR 34 Random Glucose 129 H Lactic Acid Lactic Acid F/U @ 2Hr Lactic Acid F/U @ 4Hr Calcium 8.9 Total Bilirubin 7.5 H AST 55 H ALT 24 Alkaline Phosphatase 222 H Ammonia Troponin I High Sens B-Natriuretic Peptide Total Protein 6.7 Albumin 2.8 L Lipase 52 TSH Urine Color Urine Appearance Urine pH Ur Specific [employer] Urine Protein Urine Glucose (UA) Urine Ketones Urine Blood Urine Nitrite Ur Leukocyte Esterase Urine RBC Urine WBC Ur Squamous Epith Cells Urine Bacteria Hyaline Casts Peritoneal WBC Peritoneal RBC Periton Lymphocytes Peritoneal Monocytes Peritoneal Eosinophils Peritoneal Other Cells Stool Occult Blood Urine Opiates Screen Urine Fentanyl Screen Ur Barbiturates Screen Ur Phencyclidine Scrn Ur Amphetamines Screen U Benzodiazepines Scrn Urine Cocaine Screen U Marijuana (THC) Screen Ethyl Alcohol COVID-19 ([facility]) COVID-19 Clin Com 06/20/22 06/20/22 06/20/22 15:13 15:13 15:13 MCV MCH MCHC RDW Plt Count MPV Immature Gran % (Auto) Neut % (Auto) Lymph % (Auto) [place]eman % (Auto) Eos % (Auto) Baso % (Auto) Lymph # (Auto) [place]eman # (Auto) Eos # (Auto) Baso # (Auto) Abs Immat Gran (auto) Absolute Neuts (auto) Absolute Nucleated RBC Nucleated RBC % (auto) PT INR D-Dimer High Sensitivty Anion Gap Estim Creat Clear Calc Estimated GFR Random Glucose Lactic Acid 2.5 H* Lactic Acid F/U @ 2Hr Lactic Acid F/U @ 4Hr Calcium Total Bilirubin AST ALT Alkaline Phosphatase Ammonia Troponin I High Sens 9.8 B-Natriuretic Peptide 77 Total Protein Albumin Lipase TSH Urine Color Urine Appearance Urine pH Ur Specific [employer] Urine Protein Urine Glucose (UA) Urine Ketones Urine Blood Urine Nitrite Ur Leukocyte Esterase Urine RBC Urine WBC Ur Squamous Epith Cells Urine Bacteria Hyaline Casts Peritoneal WBC Peritoneal RBC Periton Lymphocytes Peritoneal Monocytes Peritoneal Eosinophils Peritoneal Other Cells Stool Occult Blood Urine Opiates Screen Urine Fentanyl Screen Ur Barbiturates Screen Ur Phencyclidine Scrn Ur Amphetamines Screen U Benzodiazepines Scrn Urine Cocaine Screen U Marijuana (THC) Screen Ethyl Alcohol COVID-19 ([facility]) COVID-19 [facility] Com 06/20/22 06/20/22 06/20/22 15:13 15:13 15:13 MCV MCH MCHC RDW Plt Count MPV Immature Gran % (Auto) Neut % (Auto) Lymph % (Auto) [place] % (Auto) Eos % (Auto) Baso % (Auto) Lymph # (Auto) [place]eman # (Auto) Eos # (Auto) Baso # (Auto) Abs Immat Gran (auto) Absolute Neuts (auto) Absolute Nucleated RBC Nucleated RBC % (auto) PT INR D-Dimer High Sensitivty Anion Gap Estim Creat Clear Calc Estimated GFR Random Glucose Lactic Acid Lactic Acid F/U @ 2Hr Lactic Acid F/U @ 4Hr Calcium Total Bilirubin AST ALT Alkaline Phosphatase Ammonia 170 H Troponin I High Sens B-Natriuretic Peptide Total Protein Albumin Lipase TSH 1.79 Urine Color Urine Appearance Urine pH Ur Specific [employer] Urine Protein Urine Glucose (UA) Urine Ketones Urine Blood Urine Nitrite Ur Leukocyte Esterase Urine RBC Urine WBC Ur Squamous Epith Cells Urine Bacteria Hyaline Casts Peritoneal WBC Peritoneal RBC Periton Lymphocytes Peritoneal Monocytes Peritoneal Eosinophils Peritoneal Other Cells Stool Occult Blood Urine Opiates Screen Urine Fentanyl Screen Ur Barbiturates Screen Ur Phencyclidine Scrn Ur Amphetamines Screen U Benzodiazepines Scrn Urine Cocaine Screen U Marijuana (THC) Screen Ethyl Alcohol < 10 COVID-19 ([facility]) Negative COVID-19 Clin Com See Note 06/20/22 06/20/22 06/20/22 15:25 15:25 17:01 MCV MCH MCHC RDW Plt Count MPV Immature Gran % (Auto) Neut % (Auto) Lymph % (Auto) [place] % (Auto) Eos % (Auto) Baso % (Auto) Lymph # (Auto) [place] # (Auto) Eos # (Auto) Baso # (Auto) Abs Immat Gran (auto) Absolute Neuts (auto) Absolute Nucleated RBC Nucleated RBC % (auto) PT INR D-Dimer High Sensitivty Anion Gap Estim Creat Clear Calc Estimated GFR Random Glucose Lactic Acid Lactic Acid F/U @ 2Hr Lactic Acid F/U @ 4Hr Calcium Total Bilirubin AST ALT Alkaline Phosphatase Ammonia Troponin I High Sens B-Natriuretic Peptide Total Protein Albumin Lipase TSH Urine Color Dark Yellow Urine Appearance Clear Urine pH 6.0 Ur Specific [employer] 1.020 Urine Protein Negative Urine Glucose (UA) Negative Urine Ketones Trace Urine Blood Negative Urine Nitrite Negative Ur Leukocyte Esterase Trace H Urine RBC 0-2 Urine WBC 6-10 H Ur Squamous Epith Cells 0-2 Urine Bacteria None Seen Hyaline Casts 3-5 Peritoneal WBC 0.114 Peritoneal RBC < 0.002 Periton Lymphocytes 59 Peritoneal Monocytes 33 Peritoneal Eosinophils 1 Peritoneal Other Cells 7 Stool Occult Blood Urine Opiates Screen Not Detected Urine Fentanyl Screen Not Detected Ur Barbiturates Screen Not Detected Ur Phencyclidine Scrn Not Detected Ur Amphetamines Screen Not Detected U Benzodiazepines Scrn Not Detected Urine Cocaine Screen Not Detected U Marijuana (THC) Screen POSITIVE H Ethyl Alcohol COVID-19 ([facility]) COVID-19 Clin Com 06/20/22 06/20/22 06/20/22 17:57 20:00 20:20 MCV MCH MCHC RDW Plt Count MPV Immature Gran % (Auto) Neut % (Auto) Lymph % (Auto) [place] % (Auto) Eos % (Auto) Baso % (Auto) Lymph # (Auto) [place] # (Auto) Eos # (Auto) Baso # (Auto) Abs Immat Gran (auto) Absolute Neuts (auto) Absolute Nucleated RBC Nucleated RBC % (auto) PT INR D-Dimer High Sensitivty Anion Gap Estim Creat Clear Calc Estimated GFR Random Glucose Lactic Acid Lactic Acid F/U @ 2Hr 3.0 H* Lactic Acid F/U @ 4Hr 3.3 H* Calcium Total Bilirubin AST ALT Alkaline Phosphatase Ammonia Troponin I High Sens B-Natriuretic Peptide Total Protein Albumin Lipase TSH Urine Color Urine Appearance Urine pH Ur Specific [employer] Urine Protein Urine Glucose (UA) Urine Ketones Urine Blood Urine Nitrite Ur Leukocyte Esterase Urine RBC Urine WBC Ur Squamous Epith Cells Urine Bacteria Hyaline Casts Peritoneal WBC Peritoneal RBC Periton Lymphocytes Peritoneal Monocytes Peritoneal Eosinophils Peritoneal Other Cells Stool Occult Blood NEGATIVE Urine Opiates Screen Urine Fentanyl Screen Ur Barbiturates Screen Ur Phencyclidine Scrn Ur Amphetamines Screen U Benzodiazepines Scrn Urine Cocaine Screen U Marijuana (THC) Screen Ethyl Alcohol COVID-19 ([facility]) COVID-19 [facility] Com 06/21/22 06/21/22 06/21/22 06:13 06:13 06:13 MCV 93.0 MCH 31.4 MCHC 33.7 RDW 18.6 H Plt Count 102 L MPV 10.5 Immature Gran % (Auto) 0.4 Neut % (Auto) 58.1 Lymph % (Auto) 24.1 [place]eman % (Auto) 14.5 H Eos % (Auto) 2.3 Baso % (Auto) 0.6 Lymph # (Auto) 1.2 [place] # (Auto) 0.7 Eos # (Auto) 0.1 Baso # (Auto) 0.0 Abs Immat Gran (auto) 0.02 Absolute Neuts (auto) 3.0 Absolute Nucleated RBC 0.000 Nucleated RBC % (auto) 0.0 PT INR D-Dimer High Sensitivty Anion Gap 12 Estim Creat Clear Calc 47.0 Estimated GFR 37 Random Glucose 108 Lactic Acid Lactic Acid F/U @ 2Hr Lactic Acid F/U @ 4Hr Calcium 8.9 Total Bilirubin 8.0 H AST 52 H ALT 22 Alkaline Phosphatase 151 H Ammonia 59 H Troponin I High Sens B-Natriuretic Peptide Total Protein 5.9 L Albumin 2.4 L Lipase TSH 3.18 Urine Color Urine Appearance Urine pH Ur Specific [employer] Urine Protein Urine Glucose (UA) Urine Ketones Urine Blood Urine Nitrite Ur Leukocyte Esterase Urine RBC Urine WBC Ur Squamous Epith Cells Urine Bacteria Hyaline Casts Peritoneal WBC Peritoneal RBC Periton Lymphocytes Peritoneal Monocytes Peritoneal Eosinophils Peritoneal Other Cells Stool Occult Blood Urine Opiates Screen Urine Fentanyl Screen Ur Barbiturates Screen Ur Phencyclidine Scrn Ur Amphetamines Screen U Benzodiazepines Scrn Urine Cocaine Screen U Marijuana (THC) Screen Ethyl Alcohol COVID-19 ([facility]) COVID-19 Clin Com Microbiology Microbiology Results: Microbiology 06/20/22 Unknown Urine Culture - Preliminary Urine Catheterized - Tobar Catheter Culture too young to evaluate. 06/20/22 17:01 Gram Stain - Final Abdominal Fluid Routine Culture - Preliminary No growth to date. Anaerobic Culture - Preliminary No growth to date. Assessment and Plan (1) Acute hepatic encephalopathy: Status: Acute Plan 57-year-old male with pertinent history of alcohol use disorder with alcoholic cirrhosis, history of GI bleeding, hypothyroidism, mood disorder, mixed hyperlipidemia who was brought to the emergency department for evaluation of altered mentation. #.? Acute hepatic encephalopathy with acute decompensation of alcoholic cirrhosis with ascites and alcoholic hepatitis Somnolent, arousable with verbal stimuli underwent paracentesis in the ER.? Ascitic fluid not consistent with SBP,no precipitant of hepatic encephalopathy, no infection normal UTI chest x-ray and CT. Abdomen and pelvis, CT head unremarkable, chronic basal ganglia infarction Ammonia improved from 170-59 continue lactulose? Is NPO will place on diet once more awake alert, initiate IV fluids #.? Chronic normocytic anemia: Resume folic acid , no active bleeding noticed, hematocrit stable, follow CBC #.? Hypothyroidism:? On Synthroid TSH 3.18 #.? Mood disorder: Continue home Lexapro #.? Thrombocytopenia due to cirrhosis, no active bleed noted. #.? Coagulopathy INR 1.8 due to liver disease, will give vitamin K follow INR #.? chronic kidney disease stage III, Avoid nephrotoxins # history of mild intermittent asthma continue home inhalers #.? Acute lactic acidosis due to liver disease.? Not due to sepsis. DVT prophylaxis:? Mechanical.? Hold Lovenox in the setting of coagulopathy Full code Will need continued inpatient stay due to acute hepatic encephalopathy . Time Spent With Patient Time: Total time managing care of this patient today ____ minutes. Quality Stroke Does the patient have a stroke diagnosis?: No VTE Prior VTE?: No VTE Risk Level:: Medical - moderate - high VTE Device Contraindication: N/A - Device Ordered VTE Drug Contraindication: Treatment Not Indicated
[2022-06-21] MEDS: Dextrose 5 % and Lactated Ring 1,000 ML 80 ML IVCONT (14:44)
[2022-06-21 15:34] VITALS: BP 121/75; PULSE 89; RESP 18; TEMP 37.2; O2SAT 97
[2022-06-21 19:44] VITALS: BP 131/88; PULSE 89; RESP 18; TEMP 36.6; O2SAT 97
[2022-06-21] MEDS: Lactulose 20 GM/30 ML SOLUTION 30 GM PO (21:17)
[2022-06-22] MEDS: LORazepam 2 MG/ML VIAL 1 MG IVPUSH (01:14)
[2022-06-22 03:25] VITALS: BP 129/76; PULSE 90; RESP 20; TEMP 36.9; O2SAT 97
[2022-06-22 07:39] VITALS: BP 113/70; PULSE 85; RESP 18; TEMP 37.4; O2SAT 99
--- NOTE | 2022-06-22 08:18 | HO.WOUNDCONS ---
History of Present Illness Data of Consult Service Date: 06/22/22 Requesting physician: Forrest Alfonso Primary Care Provider: Fernando Martin MD HPI Reason for consult: stage 2 coccyx [id number]: 57-year-old male admitted on June 20 for altered mental status in the setting of alcohol use disorder, carries history of pulmonary embolism. Patient does not recall length of down time. Other comorbities reviewed, on IV hydration. Review of Systems Review of Systems: sleeping PMFSH Medical History Asthma Cirrhosis of liver Hx of fall Hx pulmonary embolism Status post abdominal paracentesis Family History Other No family history of coronary artery disease Surgical History Hx of colonoscopy Hx of esophagogastroduodenoscopy Hx of right inguinal hernia repair Social History Household Members: Other Household Members Other:: Mother Housing: House Do you presently have visiting nurse or other home services: No Unable to assess alcohol history related to: Unknown Alcohol intake: current Alcohol intake frequency: 3 or more drinks per day Alcohol type: wine Patient Tobacco Use Status: Never used Tobacco e-Cigarette/Vaping Use: Never Used Second Hand Smoke Exposure: No Substance Use Type: Marijuana Advance Directives Date on File: 08/09/21 service: No Current occupational status: unemployed Meds Allergies Allergy/AdvReac Type Severity Reaction Status Date / Time No Known Allergies Allergy Verified 04/16/22 11:58 [No Known Allergies*] Active Medications: Current Medications Albuterol Sulfate (Albuterol Sulfate 90 Mcg 8 Gm Inhaler) 2 puff INHALE Q4H PRN PRN Reason: Shortness Of Breath Thiamine HCl 100 mg/ Sodium (Chloride) 101 mls @ 202 mls/hr IV DAILY [facility] Last Infusion: 06/21/22 14:29 Dose: Infused Dextrose/Lactated Ringer's (D5lr) 1,000 mls @ 80 mls/hr IVCONT .[id number] [facility] Last Infusion: 06/22/22 03:37 Dose: Infused Lactulose (Lactulose 20 Gm/30 Ml Solution) 30 gm PO TID [facility] Last Admin: 06/21/22 21:17 Dose: 30 gm Levothyroxine Sodium (Levothyroxine Sodium 25 Mcg Tablet) 25 mcg PO DAILY@0600 [facility] Last Admin: 06/22/22 04:20 Dose: Not Given Magnesium Oxide (Magnesium Oxide 400 Mg Tablet) 400 mg PO DAILY [facility] Melatonin (Melatonin 3 Mg Tablet) 6 mg PO BEDTIME PRN PRN Reason: Insomnia Midodrine (Midodrine Hcl 5 Mg Tablet) 5 mg PO DAILY [facility] Ondansetron HCl (Ondansetron Hcl 4 Mg/2 Ml Vial) 4 mg IVPUSH Q8H PRN PRN Reason: Nausea and Vomiting Pharmacy Consult (Consult Rx Perform Med Rec) 1 each MISCELLANE ONCE PRN PRN Reason: Consult order Sodium Chloride (0.9 % Sodium Chloride Flush 3 Ml Syringe) 3 ml IVFLUSH QSHIFT [facility] Last Admin: 06/22/22 01:10 Dose: Not Given Home Medications Medication Instructions Recorded Confirmed Last Taken Type albuterol sulfate 90 mcg/actuation 2 puff inhalation Q4-6H PRN 05/26/20 06/20/22 Unknown History aerosol inhaler Shortness Of Breath pantoprazole 40 mg tablet,delayed 40 mg PO DAILY 05/26/20 06/20/22 03/04/22 History release atorvastatin 10 mg tablet 1 tab PO DAILY 07/25/21 06/20/22 03/04/22 History cyanocobalamin (vitamin B-12) 1,000 mcg PO DAILY 07/25/21 06/20/22 03/04/22 History 1,000 mcg tablet magnesium oxide 400 mg (241.3 mg 1 tab PO DAILY 07/25/21 06/20/22 03/04/22 History magnesium) tablet multivitamin 1 tab PO DAILY 07/25/21 06/20/22 03/04/22 History pyridoxine (vitamin B6) 100 mg 100 mg PO DAILY 07/25/21 06/20/22 03/04/22 History tablet thiamine HCl (vitamin B1) 100 mg 100 mg PO DAILY 07/25/21 06/20/22 03/04/22 History tablet escitalopram oxalate 20 mg tablet 20 mg PO DAILY 03/05/22 06/20/22 03/04/22 History folic acid 1 mg tablet 1 mg PO DAILY 03/05/22 06/20/22 03/04/22 History levothyroxine 25 mcg tablet 1 tab PO DAILY 03/05/22 06/20/22 03/04/22 History midodrine 5 mg tablet 5 mg PO DAILY 06/20/22 06/20/22 Unknown History Physical Exam Vital Signs and Narrative: Vital Signs: Last Vital Signs Temp 99.4 F 06/22/22 07:39 Pulse 85 06/22/22 07:39 Resp 18 06/22/22 07:39 BP 113/70 06/22/22 07:39 Pulse Ox 99 06/22/22 07:39 O2 Del Method 06/22/22 07:39 BMI result Body Mass Index 23.3 Easily arousable. Roll to left side without incident. No bandage on the sacrum. No wound on the buttocks. Full blanching coccyx suggests no presence of ulcer or pressure evolution risk. Results Labs 06/21/22 06:13 06/21/22 06:13 Assessment and Plan (1) Hepatic encephalopathy: Status: Acute Plan No wounds. No role for wound care other than pressure ulcer prevention per protocol. This patient was seen under the supervision of Dr. Camacho who was available but did not see the patient. Time Spent With Patient Time: Total time managing care of this patient today ____ minutes.
[2022-06-22] MEDS: Thiamine HCL 100 MG in 0.9 % Sodium Chloride 100 ML 200 MG IV (10:21)
[2022-06-22] MEDS: Midodrine HCl 5 MG TABLET PO (10:22)
[2022-06-22] MEDS: Lactulose 20 GM/30 ML SOLUTION 30 GM PO (10:22)
[2022-06-22] MEDS: Magnesium Oxide 400 MG TABLET PO (10:22)
[2022-06-22] MEDS: 0.9 % Sodium Chloride Flush 3 ML SYRINGE IVFLUSH ×2 (10:24→16:17)
[2022-06-22 11:34] VITALS: BMI 23.3
[2022-06-22] MEDS: Dextrose 5 % and Lactated Ring 1,000 ML 125 ML IVCONT ×2 (14:00→22:27)
--- NOTE | 2022-06-22 14:22 | HO.PM.IMPN ---
Subjective Subjective Date of Service: 06/22/22 Interval History: Patient remains somnolent this morning open eyes but falls back to sleep more, moving all 4 extremities, only had minimal clear liquid diet this morning, taking oral medications, no nausea, no vomiting, noted to have moderate loose brown stool, no overnight fever chills. Review of Systems Review of Systems: Yes Unobtainable due to mental status Physical Exam Vital Signs: Vital Signs: Last Vital Signs Temp 99.4 F 06/22/22 07:39 Pulse 85 06/22/22 07:39 Resp 18 06/22/22 07:39 BP 113/70 06/22/22 07:39 Pulse Ox 99 06/22/22 07:39 O2 Del Method 06/22/22 07:39 BMI result Body Mass Index 23.3 Const: Other: General somnolent,?easily arousable,?in no distress Neck supple, no JVD CVS regular rhythm, S1-S2 heard Respiratory Regular breath sounds bilaterally, no wheezing or crackles appreciated Abdomen soft non tender, bowel sounds audible no guarding, no rigidity Neuro, easily arousable , moving all 4 extremities Extremities No pedal edema Skin jaundiced Objective Data Active Medications Albuterol Sulfate (Albuterol Sulfate 90 Mcg 8 Gm Inhaler) 2 puff INHALE Q4H PRN PRN Reason: Shortness Of Breath Thiamine HCl 100 mg/ Sodium (Chloride) 101 mls @ 202 mls/hr IV DAILY [facility] Last Infusion: 06/22/22 11:10 Dose: 0 mls/hr Documented By: JALEN Dextrose/Lactated Ringer's (D5lr) 1,000 mls @ 80 mls/hr IVCONT .[id number] [facility] Last Infusion: 06/22/22 03:37 Dose: 80 mls/hr Documented By: MARY Lactulose (Lactulose 20 Gm/30 Ml Solution) 30 gm PO TID [facility] Last Admin: 06/22/22 10:22 Dose: 30 gm Documented By: JALEN Levothyroxine Sodium (Levothyroxine Sodium 25 Mcg Tablet) 25 mcg PO DAILY@0600 [facility] Last Admin: 06/22/22 04:20 Dose: Not Given Documented By: MARY Non-Admin Reason: NPO Magnesium Oxide (Magnesium Oxide 400 Mg Tablet) 400 mg PO DAILY [facility] Last Admin: 06/22/22 10:22 Dose: 400 mg Documented By: JALEN Melatonin (Melatonin 3 Mg Tablet) 6 mg PO BEDTIME PRN PRN Reason: Insomnia Midodrine (Midodrine Hcl 5 Mg Tablet) 5 mg PO DAILY [facility] Last Admin: 06/22/22 10:22 Dose: 5 mg Documented By: JALEN Ondansetron HCl (Ondansetron Hcl 4 Mg/2 Ml Vial) 4 mg IVPUSH Q8H PRN PRN Reason: Nausea and Vomiting Pharmacy Consult (Consult Rx Perform Med Rec) 1 each MISCELLANE ONCE PRN PRN Reason: Consult order Sodium Chloride (0.9 % Sodium Chloride Flush 3 Ml Syringe) 3 ml IVFLUSH QSHIFT [facility] Last Admin: 06/22/22 10:24 Dose: 3 ml Documented By: JALEN Labs 06/21/22 06:13 06/21/22 06:13 Microbiology Microbiology Results: Microbiology 06/20/22 Unknown Urine Culture - Final Urine Catheterized - Tobar Catheter 06/20/22 17:01 Gram Stain - Final Abdominal Fluid Routine Culture - Preliminary No growth to date. Anaerobic Culture - Preliminary No growth to date. 06/20/22 15:14 Blood Culture - Preliminary Blood - Venous No growth after 24 hours. 06/20/22 15:13 Blood Culture - Preliminary Blood - Venous No growth after 24 hours. Assessment and Plan (1) Acute hepatic encephalopathy: Status: Acute Plan 57-year-old male with pertinent history of alcohol use disorder with alcoholic cirrhosis, history of GI bleeding, hypothyroidism, mood disorder, mixed hyperlipidemia who was brought to the emergency department for evaluation of altered mentation. #.? Acute hepatic encephalopathy / with acute decompensation of alcoholic cirrhosis with ascites and alcoholic hepatitis. ?? ? remains Somnolent,but arousable with verbal stimuli ?? ? underwent paracentesis in the ER.? Ascitic fluid not consistent with SBP,no precipitant of hepatic encephalopathy, no infection normal UTI, chest x-ray and CT.? Abdomen and pelvis, CT head unremarkable, chronic basal ?? ? ganglia infarction. Hematocrit low but stable, renal function at baseline ?? ? Ammonia improved from 170-59 continue lactulose?change to 40gm by mouth t.i.d. ?? ? Spoke with brother he informed that patient has not had alcohol in last 90 days, called patient mother Sharri [phone], she informed that patient has been sleepy for last 3 weeks that got worsened in last 2-3 days patient has been compliant with his lactulose use marijuana, no alcohol, no other injury illicit drugs. Will continue IV fluid increased to 125 mL/hour, continue lactulose and clear liquid diet as tolerated if no improvement in clinical status ,consult Neurology and GI #.? Chronic normocytic anemia: on folic acid , no active bleeding noticed, hematocrit stable, follow CBC #.? Hypothyroidism:? On Synthroid TSH 3.18 #.? Mood disorder: Continue home Lexapro #.? Thrombocytopenia due to cirrhosis, no active bleed noted. #.? Coagulopathy INR 1.8 due to liver disease, will give vitamin K follow INR #.? chronic kidney disease stage III,? Avoid nephrotoxins #? history of mild intermittent asthma continue home inhalers #.? Acute lactic acidosis due to liver disease.? Not due to sepsis, continue IV fluid. DVT prophylaxis:? Mechanical.? Hold Lovenox in the setting of coagulopathy Full code Will need continued inpatient stay due to acute hepatic encephalopathy . Time Spent With Patient Time: Total time managing care of this patient today ____ minutes. Quality Stroke Does the patient have a stroke diagnosis?: No VTE Prior VTE?: No VTE Risk Level:: Medical - moderate - high VTE Device Contraindication: N/A - Device Ordered VTE Drug Contraindication: Treatment Not Indicated
[2022-06-22 15:20] VITALS: BP 115/66; PULSE 85; RESP 18; TEMP 37.1; O2SAT 97
[2022-06-22 19:27] VITALS: BP 127/66; PULSE 83; RESP 18; TEMP 37.1; O2SAT 97
[2022-06-22] MEDS: Lactulose 20 GM/30 ML SOLUTION 40 GM PO (22:27)
[2022-06-23 00:25] VITALS: BP 111/72; PULSE 79; RESP 15; TEMP 36.2; O2SAT 97
[2022-06-23 03:42] VITALS: BP 130/70; PULSE 73; RESP 14; TEMP 36.5; O2SAT 98
[2022-06-23 06:39] LABS: Hematocrit 25.4 % (42.0-52.0); Hemoglobin 8.3 g/dl (14.0-18.0); Mean Corpuscular HGB Conc 32.7 g/dl (31.0-36.0); Mean Corpuscular Hemoglobin 31.2 pg (27.0-33.0); Mean Corpuscular Volume 95.5 fL (80.0-98.0); Mean Platelet Volume 10.4 fL (9.4-12.4); Red Blood Count 2.66 X10*6/uL (4.60-5.80); Red Cell Distribution Width 18.6 % (11.0-16.0)
[2022-06-23 06:41] LABS: Platelet Count 94 X10*3/uL (160-400)
[2022-06-23] MEDS: Dextrose 5 % and Lactated Ring 1,000 ML 125 ML IVCONT ×2 (06:42→15:46)
[2022-06-23 06:47] LABS: Ammonia 87 umol/L (13-55)
[2022-06-23 07:44] LABS: Alanine Aminotransferase 23 U/L (0-40); Albumin Level 2.5 g/dL (3.5-5.0); Alkaline Phosphatase 108 U/L (39-117); Anion Gap 12 (12-20); Aspartate Amino Transferase 63 U/L (5-37); Bilirubin Direct 2.6 mg/dL (0.0-0.5); Bilirubin Total 8.7 mg/dL (0.0-1.0); Blood Urea Nitrogen 16 mg/dL (9-16); Calcium 8.9 mg/dL (8.4-10.2); Carbon Dioxide 15 mmol/L (22-29); Chloride 117 mmol/L (96-108); Creatinine Clr Calc Pharmacy 56.6; Estimated Glomerular Filt Rate 46; Glucose Random 111 mg/dL (60-115); Potassium 3.8 mmol/L (3.3-5.1); Sodium 140 mmol/L (135-145)
[2022-06-23 08:00] VITALS: BP 132/74; PULSE 67; RESP 18; TEMP 36.8; O2SAT 97
[2022-06-23] MEDS: Lactulose 20 GM/30 ML SOLUTION 40 GM PO ×3 (10:04→22:29)
[2022-06-23] MEDS: 0.9 % Sodium Chloride Flush 3 ML SYRINGE IVFLUSH (10:04)
[2022-06-23] MEDS: Phytonadione (Vit K1) Oral 10 MG/ML AMPUL 5 MG PO (10:05)
[2022-06-23] MEDS: Thiamine HCL 100 MG in 0.9 % Sodium Chloride 100 ML 200 MG IV (10:05)
[2022-06-23] MEDS: Midodrine HCl 5 MG TABLET PO (10:06)
[2022-06-23] MEDS: Magnesium Oxide 400 MG TABLET PO (10:06)
--- NOTE | 2022-06-23 15:19 | HO.PM.IMPN ---
Subjective Subjective Date of Service: 06/23/22 Interval History: More alert this a.m. answering questions appropriately Review of Systems Denies chest pain Denies shortness of breath Denies nausea vomiting diarrhea Denies fever chills Physical Exam Vital Signs: Vital Signs: Last Vital Signs Temp 98.3 F 06/23/22 08:00 Pulse 67 06/23/22 08:00 Resp 18 06/23/22 08:00 BP 132/74 06/23/22 08:00 Pulse Ox 97 06/23/22 08:00 O2 Del Method 06/23/22 08:00 BMI result Body Mass Index 23.3 Const: Other: No acute distress overnight Resp: Other: Clear to auscultation bilaterally no rales rhonchi or wheezes Cardio: Other: No S4; positive S1-S2; no S3 murmurs rubs or gallops GI: Other: Soft nontender nondistended normoactive bowel sounds Extrem: Other: No edema bilateral Objective Data Active Medications Albuterol Sulfate (Albuterol Sulfate 90 Mcg 8 Gm Inhaler) 2 puff INHALE Q4H PRN PRN Reason: Shortness Of Breath Thiamine HCl 100 mg/ Sodium (Chloride) 101 mls @ 202 mls/hr IV DAILY [facility] Last Infusion: 06/23/22 11:50 Dose: 0 mls/hr Documented By: JENSEN Dextrose/Lactated Ringer's (D5lr) 1,000 mls @ 125 mls/hr IVCONT .Q8H [facility] Last Admin: 06/23/22 06:42 Dose: 125 mls/hr Documented By: MILTON Lactulose (Lactulose 20 Gm/30 Ml Solution) 40 gm PO TID [facility] Last Admin: 06/23/22 10:04 Dose: 40 gm Documented By: JENSEN Levothyroxine Sodium (Levothyroxine Sodium 25 Mcg Tablet) 25 mcg PO DAILY@0600 [facility] Last Admin: 06/23/22 06:06 Dose: Not Given Documented By: MILTON Non-Admin Reason: NPO Magnesium Oxide (Magnesium Oxide 400 Mg Tablet) 400 mg PO DAILY [facility] Last Admin: 06/23/22 10:06 Dose: 400 mg Documented By: JENSEN Melatonin (Melatonin 3 Mg Tablet) 6 mg PO BEDTIME PRN PRN Reason: Insomnia Midodrine (Midodrine Hcl 5 Mg Tablet) 5 mg PO DAILY [facility] Last Admin: 06/23/22 10:06 Dose: 5 mg Documented By: JENSEN Ondansetron HCl (Ondansetron Hcl 4 Mg/2 Ml Vial) 4 mg IVPUSH Q8H PRN PRN Reason: Nausea and Vomiting Pharmacy Consult (Consult Rx Perform Med Rec) 1 each MISCELLANE ONCE PRN PRN Reason: Consult order Phytonadione (Phytonadione (Vit K1) Oral 10 Mg/Ml Ampul) 5 mg PO DAILY [facility] Stop: 06/26/22 08:59 Last Admin: 06/23/22 10:05 Dose: 5 mg Documented By: JENSEN Sodium Chloride (0.9 % Sodium Chloride Flush 3 Ml Syringe) 3 ml IVFLUSH QSHIFT [facility] Last Admin: 06/23/22 10:04 Dose: 3 ml Documented By: JENSEN Labs 06/23/22 06:31 06/23/22 06:31 Labs: Laboratory Results - last 24 hr 06/23/22 06/23/22 06/23/22 06:31 06:31 06:31 MCV 95.5 MCH 31.2 MCHC 32.7 RDW 18.6 H Plt Count 94 L MPV 10.4 Absolute Nucleated RBC 0.000 Nucleated RBC % (auto) 0.0 Anion Gap 12 Estim Creat Clear Calc 56.6 Estimated GFR 46 Random Glucose 111 Calcium 8.9 Total Bilirubin 8.7 H Direct Bilirubin 2.6 H AST 63 H ALT 23 Alkaline Phosphatase 108 Ammonia 87 H Total Protein 6.0 L Albumin 2.5 L Microbiology Microbiology Results: Microbiology 06/20/22 17:01 Gram Stain - Final Abdominal Fluid Routine Culture - Final No growth after 2 days Anaerobic Culture - Preliminary No growth to date. 06/20/22 15:14 Blood Culture - Preliminary Blood - Venous No growth after 48 hours. 06/20/22 15:13 Blood Culture - Preliminary Blood - Venous No growth after 48 hours. 06/20/22 Unknown Urine Culture - Final Urine Catheterized - Tobar Catheter Assessment and Plan (1) Acute hepatic encephalopathy: Status: Acute (2) Acute kidney injury: Status: Acute Plan 57-year-old male with pertinent history of alcohol use disorder with alcoholic cirrhosis, history of GI bleeding, hypothyroidism, mood disorder, mixed hyperlipidemia who was brought to the emergency department for evaluation of altered mentation. 1.Acute hepatic encephalopathy secondary to decompensated liver cirrhosis -more alert this a.m. -continue lactulose 40 g t.i.d. -continues to improve; will advance diet in a.m. -continue IV fluids ?? ? 2.Hypothyroidism -continue supplement 3.Coagulopathy -check INR daily -vitamin K IV as indicated 4.VIKAS onChronic kidney disease stage III -improving with volume -follow renals/divalents Pneumatics Full code Will need continued inpatient stay due to acute hepatic encephalopathy . Time Spent With Patient Time: Total time managing care of this patient today ____ minutes. Quality Stroke Does the patient have a stroke diagnosis?: No VTE Prior VTE?: No VTE Risk Level:: Medical - moderate - high VTE Device Contraindication: N/A - Device Ordered VTE Drug Contraindication: Treatment Not Indicated
[2022-06-23 16:00] VITALS: BP 135/77; PULSE 80; RESP 19; TEMP 36.2; O2SAT 96
[2022-06-23 20:00] VITALS: BP 140/78; PULSE 104; RESP 18; TEMP 37.8; O2SAT 92
[2022-06-23 23:42] VITALS: BP 118/63; PULSE 107; RESP 14; TEMP 36.1; O2SAT 95
[2022-06-24] MEDS: Dextrose 5 % and Lactated Ring 1,000 ML 125 ML IVCONT (02:42)
[2022-06-24 04:00] VITALS: BP 117/62; PULSE 101; RESP 14; TEMP 36.2; O2SAT 95
[2022-06-24 06:19] LABS: Hematocrit 23.9 % (42.0-52.0); Mean Corpuscular HGB Conc 33.5 g/dl (31.0-36.0); Mean Corpuscular Hemoglobin 31.7 pg (27.0-33.0); Mean Corpuscular Volume 94.8 fL (80.0-98.0); Red Blood Count 2.52 X10*6/uL (4.60-5.80); Red Cell Distribution Width 18.6 % (11.0-16.0); White Blood Count 9.6 X10*3/uL (4.8-10.8)
[2022-06-24 06:20] LABS: Platelet Count 83 X10*3/uL (160-400)
[2022-06-24 06:24] LABS: INTERNATIONAL NORM RATIO 2.4 (0.9-1.1)
[2022-06-24] MEDS: Levothyroxine Sodium 25 MCG TABLET PO (06:25)
[2022-06-24 06:39] LABS: Band Neutrophils Percent 27 % (3-5); Lymphocytes Absolute Manual 0.9 X10*3/uL (1.2-4.9); Lymphocytes Percent Manual 9 % (20-40); Metamyelocytes Absolute 0.2 X10*3/uL; Metamyelocytes Percent 2 %; Monocytes Absolute Manual 0.7 X10*3/uL (0.1-1.2); Monocytes Percent Manual 7 % (2-11); Neutrophils Absolute Manual 7.9 X10*3/uL (2.0-8.3); Neutrophils Percent Manual 55 % (45-73); Nucleated Red Blood Cells 1 /100WBC (0-0)
[2022-06-24 06:44] LABS: Platelet Estimate DECREASED (NORMAL); Platelet Morphology Comment NOTED; RBC Morphology NOTED
[2022-06-24 06:45] LABS: Acanthocytes 3+ (>5) /OIF; Large Platelet PRESENT; Polychromasia 1+ (0-2) /OIF; Schistocytes 1+ (0-2) /OIF; Toxic Granulation PRESENT; Toxic Vacuolation PRESENT
[2022-06-24 06:46] LABS: Alanine Aminotransferase 22 U/L (0-40); Albumin Level 2.2 g/dL (3.5-5.0); Alkaline Phosphatase 86 U/L (39-117); Anion Gap 14 (12-20); Aspartate Amino Transferase 60 U/L (5-37); Bilirubin Total 9.7 mg/dL (0.0-1.0); Blood Urea Nitrogen 20 mg/dL (9-16); Carbon Dioxide 12 mmol/L (22-29); Chloride 115 mmol/L (96-108); Creatinine Clr Calc Pharmacy 38.9; Estimated Glomerular Filt Rate 30; Glucose Fasting 158 mg/dL (60-99); Hypochromasia 1+ (5-14) /OIF; Pappenheimer Bodies PRESENT; Sodium 137 mmol/L (135-145); Total Protein 5.6 g/dL (6.5-8.0)
[2022-06-24 07:59] VITALS: BP 138/76; PULSE 78; RESP 18; TEMP 36.9; O2SAT 95
[2022-06-24 08:21] LABS: Ammonia 45 umol/L (13-55)
--- NOTE | 2022-06-24 08:40 | P.CONNP_ITS ---
History of Present Illness Reason for Consult Consult date: 06/24/22 Reason for consult: VIKAS and Acidosis Requesting physician: Amor Fuentes Chief Complaint Chief complaint: Altered Mentation History of Present Illness Narrative: Mr. Abraham Celis is a 57-year-old gentleman with past medical history of CKD stage IIIb (BL Cr 1.6-1.9mg/dl) due to type 2 HRS (requires interval paracentesis with progressive GFR loss). He has a history of ongoing ETOH use and active daily motrin use. He presents for AMS. He is found to have decompensated etoh cirrhosis and is jaundiced. Course is now complicated by VIKAS and Acidosis. Review of Systems Review of Systems Yes Unobtainable due to mental status PMFSH Past Medical History Medical History Asthma Cirrhosis of liver Hx of fall Hx pulmonary embolism Status post abdominal paracentesis Family History Family History Other No family history of coronary artery disease Surgical History Surgical History Hx of colonoscopy Hx of esophagogastroduodenoscopy Hx of right inguinal hernia repair Social History Social History Household Members: Other Household Members Other:: Mother Housing: House Do you presently have visiting nurse or other home services: No Unable to assess alcohol history related to: Unknown Alcohol intake: current Alcohol intake frequency: 3 or more drinks per day Alcohol type: wine Patient Tobacco Use Status: Never used Tobacco e-Cigarette/Vaping Use: Never Used Second Hand Smoke Exposure: No Substance Use Type: Marijuana Advance Directives Date on File: 08/09/21 service: No Current occupational status: unemployed Meds Allergies Allergy/AdvReac Type Severity Reaction Status Date / Time No Known Allergies Allergy Verified 04/16/22 11:58 [No Known Allergies*] Active Medications: Current Medications Albuterol Sulfate (Albuterol Sulfate 90 Mcg 8 Gm Inhaler) 2 puff INHALE Q4H PRN PRN Reason: Shortness Of Breath Thiamine HCl 100 mg/ Sodium (Chloride) 101 mls @ 202 mls/hr IV DAILY [facility] Last Infusion: 06/23/22 11:50 Dose: Infused Phytonadione 10 mg/ Sodium (Chloride) 51 mls @ 51 mls/hr IV ONCE ONE Stop: 06/24/22 09:59 Sodium Bicarbonate 150 meq/ (Dextrose) 1,000 mls @ 100 mls/hr IV .Q10H [facility] Albumin Human (Kedbumin 25 %) 100 mls @ 100 mls/hr IV RQ6H [facility] Stop: 06/24/22 09:27 Lactulose (Lactulose 20 Gm/30 Ml Solution) 40 gm PO TID [facility] Last Admin: 06/23/22 22:29 Dose: 40 gm Levothyroxine Sodium (Levothyroxine Sodium 25 Mcg Tablet) 25 mcg PO DAILY@0600 [facility] Last Admin: 06/24/22 06:25 Dose: 25 mcg Magnesium Oxide (Magnesium Oxide 400 Mg Tablet) 400 mg PO DAILY [facility] Last Admin: 06/23/22 10:06 Dose: 400 mg Melatonin (Melatonin 3 Mg Tablet) 6 mg PO BEDTIME PRN PRN Reason: Insomnia Midodrine (Midodrine Hcl 5 Mg Tablet) 5 mg PO DAILY [facility] Last Admin: 06/23/22 10:06 Dose: 5 mg Ondansetron HCl (Ondansetron Hcl 4 Mg/2 Ml Vial) 4 mg IVPUSH Q8H PRN PRN Reason: Nausea and Vomiting Pharmacy Consult (Consult Rx Perform Med Rec) 1 each MISCELLANE ONCE PRN PRN Reason: Consult order Sodium Chloride (0.9 % Sodium Chloride Flush 3 Ml Syringe) 3 ml IVFLUSH QSHIFT [facility] Last Admin: 06/23/22 22:30 Dose: Not Given Home Medications Medication Instructions Recorded Confirmed Last Taken Type albuterol sulfate 90 mcg/actuation 2 puff inhalation Q4-6H PRN 05/26/20 06/20/22 Unknown History aerosol inhaler Shortness Of Breath pantoprazole 40 mg tablet,delayed 40 mg PO DAILY 05/26/20 06/20/22 03/04/22 His tory release atorvastatin 10 mg tablet 1 tab PO DAILY 07/25/21 06/20/22 03/04/22 History cyanocobalamin (vitamin B-12) 1,000 mcg PO DAILY 07/25/21 06/20/22 03/04/22 History 1,000 mcg tablet magnesium oxide 400 mg (241.3 mg 1 tab PO DAILY 07/25/21 06/20/22 03/04/22 History magnesium) tablet multivitamin 1 tab PO DAILY 07/25/21 06/20/22 03/04/22 History pyridoxine (vitamin B6) 100 mg 100 mg PO DAILY 07/25/21 06/20/22 03/04/22 History tablet thiamine HCl (vitamin B1) 100 mg 100 mg PO DAILY 07/25/21 06/20/22 03/04/22 History tablet escitalopram oxalate 20 mg tablet 20 mg PO DAILY 03/05/22 06/20/22 03/04/22 History folic acid 1 mg tablet 1 mg PO DAILY 03/05/22 06/20/22 03/04/22 History levothyroxine 25 mcg tablet 1 tab PO DAILY 03/05/22 06/20/22 03/04/22 History midodrine 5 mg tablet 5 mg PO DAILY 06/20/22 06/20/22 Unknown History Physical Exam Vital Signs: Last Vital Signs Temp 98.4 F 06/24/22 07:59 Pulse 78 06/24/22 07:59 Resp 18 06/24/22 07:59 BP 138/76 06/24/22 07:59 Pulse Ox 95 06/24/22 07:59 O2 Del Method 06/24/22 07:59 BMI result Body Mass Index 23.3 Const Other: No acute distress overnight Resp Other: Clear to auscultation bilaterally no rales rhonchi or wheezes Cardio Other: No S4; positive S1-S2; no S3 murmurs rubs or gallops GI Other: Soft nontender nondistended normoactive bowel sounds Skin Other: Jaundice. Warm and dry Neuro Other: Unable to assess Extrem Other: No edema bilateral Results Lab Results 06/24/22 05:41 06/24/22 05:41 Lab results: Chemistry 06/23/22 06/24/22 06:31 05:41 Sodium 140 137 Potassium 3.8 4.0 Carbon Dioxide 15 L 12 L BUN 16 20 H Creatinine 1.56 H 2.27 H Calcium 8.9 9.0 Hematology 06/23/22 06/24/22 06:31 05:41 WBC 6.0 9.6 Hgb 8.3 L 8.0 L Plt Count 94 L 83 L Assessment and Plan (1) Acute hepatic encephalopathy: Status: Acute (2) Acute kidney injury: Status: Acute Plan Mr. Abraham Vimal is a 57-year-old gentleman with past medical history of CKD stage IIIb (BL Cr 1.6-1.9mg/dl) due to type 2 HRS (requires interval paracentesis with progressive GFR loss). He has a history of ongoing ETOH use and active daily motrin use. He presents for AMS. He is found to have decompensated etoh cirrhosis and is jaundiced. Course is now complicated by VIKAS and Acidosis. 1.Non-oliguric VIKAS on CKD CKD stage IIIb due to Type 2 HRS requiring interval paracentesis. Now with VIKAS in the setting of Hyalinuria and bland UA Normotensive This is not type 1 HRS This is pre-renal azotemia Perhaps some ATN will develop, but so far renal hypoperfusion is primary issue. Plan: - isotonic IVF challenge - Albumin 100mL x2 doses (pharmacy notified me that there is a back order, only 2 doses can be given. Can reorder later in week) - Monitor venous Ammonia - No need for midodrien or octreotide - Avoid IV contrast - Bladder scans to monitor for retention 2. Acidosis pt has a Chronic Bicarb of 19-20meq/L due to cirrhotic driven Resp Alk Now Bicarb is own to 12meq/L This is non-gap, but when you CORRECT FOR LOW SERUM ALB its High gap Plan: - check Lactate, BHB, CK - IVF as above Time Spent With Patient Time: Total time managing care of this patient today ____ minutes. Procedures Date of Service Date of Service: 06/24/22
[2022-06-24] MEDS: Sodium Bicarbonate 8.4% 150 MEQ in Dextrose 5 % 850 ML 100 MEQ IV (08:58)
[2022-06-24] MEDS: Phytonadione (Vit K1) 10 MG in 0.9 % Sodium Chloride 50 ML 51 MG IV (08:59)
[2022-06-24] MEDS: 0.9 % Sodium Chloride Flush 3 ML SYRINGE IVFLUSH (09:01)
[2022-06-24] MEDS: Thiamine HCL 100 MG in 0.9 % Sodium Chloride 100 ML 200 MG IV (09:57)
[2022-06-24] MEDS: Magnesium Oxide 400 MG TABLET PO (09:57)
[2022-06-24] MEDS: Lactulose 20 GM/30 ML SOLUTION 40 GM PO (09:57)
[2022-06-24] MEDS: Midodrine HCl 5 MG TABLET PO (09:57)
--- NOTE | 2022-06-24 11:16 | P.PNIM_ITS ---
Subjective Subjective Date of Service: 06/24/22 Interval History: Minimal verbalization this a.m. opens eyes to verbal stimuli Review of Systems Denies chest pain Denies shortness of breath Denies nausea vomiting diarrhea Denies fever chills Physical Exam Vital Signs: Vital Signs: Last Vital Signs Temp 98.4 F 06/24/22 07:59 Pulse 78 06/24/22 07:59 Resp 18 06/24/22 07:59 BP 138/76 06/24/22 07:59 Pulse Ox 95 06/24/22 07:59 O2 Del Method 06/24/22 07:59 BMI result Body Mass Index 23.3 Const: Other: No acute distress overnight Resp: Other: Clear to auscultation bilaterally no rales rhonchi or wheezes Cardio: Other: No S4; positive S1-S2; no S3 murmurs rubs or gallops GI: Other: Soft nontender nondistended normoactive bowel sounds Extrem: Other: No edema bilateral Objective Data Active Medications Albuterol Sulfate (Albuterol Sulfate 90 Mcg 8 Gm Inhaler) 2 puff INHALE Q4H PRN PRN Reason: Shortness Of Breath Thiamine HCl 100 mg/ Sodium (Chloride) 101 mls @ 202 mls/hr IV DAILY [facility] Last Admin: 06/24/22 09:57 Dose: 200 mls/hr Documented By: JENSEN Sodium Bicarbonate 150 meq/ (Dextrose) 1,000 mls @ 100 mls/hr IV .Q10H [facility] Last Admin: 06/24/22 08:58 Dose: 100 mls/hr Documented By: JENSEN Albumin Human (Kedbumin 25 %) 100 mls @ 100 mls/hr IV Q6H [facility] Stop: 06/24/22 15:59 Lactulose (Lactulose 20 Gm/30 Ml Solution) 40 gm PO TID [facility] Last Admin: 06/24/22 09:57 Dose: 40 gm Documented By: JENSEN Levothyroxine Sodium (Levothyroxine Sodium 25 Mcg Tablet) 25 mcg PO DAILY@0600 [facility] Last Admin: 06/24/22 06:25 Dose: 25 mcg Documented By: MILTON Magnesium Oxide (Magnesium Oxide 400 Mg Tablet) 400 mg PO DAILY [facility] Last Admin: 06/24/22 09:57 Dose: 400 mg Documented By: JENSEN Melatonin (Melatonin 3 Mg Tablet) 6 mg PO BEDTIME PRN PRN Reason: Insomnia Midodrine (Midodrine Hcl 5 Mg Tablet) 5 mg PO DAILY [facility] Last Admin: 06/24/22 09:57 Dose: 5 mg Documented By: JENSEN Ondansetron HCl (Ondansetron Hcl 4 Mg/2 Ml Vial) 4 mg IVPUSH Q8H PRN PRN Reason: Nausea and Vomiting Pharmacy Consult (Consult Rx Perform Med Rec) 1 each MISCELLANE ONCE PRN PRN Reason: Consult order Sodium Chloride (0.9 % Sodium Chloride Flush 3 Ml Syringe) 3 ml IVFLUSH QSHIFT [facility] Last Admin: 06/24/22 09:01 Dose: 3 ml Documented By: JENSEN Labs 06/24/22 05:41 06/24/22 05:41 Labs: Laboratory Results - last 24 hr 06/24/22 06/24/22 06/24/22 05:41 05:41 05:41 MCV 94.8 MCH 31.7 MCHC 33.5 RDW 18.6 H Plt Count 83 L MPV 10.0 Immature Gran % (Auto) Cancelled Neut % (Auto) Cancelled Lymph % (Auto) Cancelled [place] % (Auto) Cancelled Eos % (Auto) Cancelled Baso % (Auto) Cancelled Lymph # (Auto) Cancelled [place] # (Auto) Cancelled Eos # (Auto) Cancelled Baso # (Auto) Cancelled Abs Immat Gran (auto) Cancelled Absolute Neuts (auto) Cancelled Absolute Nucleated RBC 0.000 Nucleated RBC % (auto) 0.0 Neutrophils % (Manual) 55 Band Neutrophils % 27 H Lymphocytes % (Manual) 9 L Monocytes % (Manual) 7 Metamyelocytes % 2 Abs Neuts (Manual) 7.9 Lymphocytes # (Manual) 0.9 L Monocytes # (Manual) 0.7 Metamyelocytes # 0.2 Nucleated RBCs 1 H Toxic Granulation PRESENT Toxic Vacuolation PRESENT Platelet Estimate DECREASED Large Platelets PRESENT Plt Morphology Comment NOTED RBC Morphology NOTED Polychromasia 1+ (0-2) Hypochromasia 1+ (5-14) Pappenheimer Bodies PRESENT Acanthocytes (Spur) 3+ (>5) Schistocytes 1+ (0-2) PT 29.0 H INR 2.4 H Anion Gap 14 Estim Creat Clear Calc 38.9 Estimated GFR 30 Fasting Glucose 158 H Calcium 9.0 Total Bilirubin 9.7 H AST 60 H ALT 22 Alkaline Phosphatase 86 Ammonia Total Protein 5.6 L Albumin 2.2 L 06/24/22 08:03 MCV MCH MCHC RDW Plt Count MPV Immature Gran % (Auto) Neut % (Auto) Lymph % (Auto) [place] % (Auto) Eos % (Auto) Baso % (Auto) Lymph # (Auto) [place] # (Auto) Eos # (Auto) Baso # (Auto) Abs Immat Gran (auto) Absolute Neuts (auto) Absolute Nucleated RBC Nucleated RBC % (auto) Neutrophils % (Manual) Band Neutrophils % Lymphocytes % (Manual) Monocytes % (Manual) Metamyelocytes % Abs Neuts (Manual) Lymphocytes # (Manual) Monocytes # (Manual) Metamyelocytes # Nucleated RBCs Toxic Granulation Toxic Vacuolation Platelet Estimate Large Platelets Plt Morphology Comment RBC Morphology Polychromasia Hypochromasia Pappenheimer Bodies Acanthocytes (Spur) Schistocytes PT INR Anion Gap Estim Creat Clear Calc Estimated GFR Fasting Glucose Calcium Total Bilirubin AST ALT Alkaline Phosphatase Ammonia 45 Total Protein Albumin Microbiology Microbiology Results: Microbiology 06/20/22 17:01 Gram Stain - Final Abdominal Fluid Routine Culture - Final No growth after 2 days Anaerobic Culture - Preliminary No growth to date. Assessment and Plan (1) Acute hepatic encephalopathy: Status: Acute (2) Acute kidney injury: Status: Acute Plan 57-year-old male with pertinent history of alcohol use disorder with alcoholic cirrhosis, history of GI bleeding, hypothyroidism, mood disorder, mixed hyperlipidemia who was brought to the emergency department for evaluation of altered mentation. 1.Acute hepatic encephalopathy secondary to decompensated liver cirrhosis -minimal verbalization this a.m. -continue lactulose 40 g t.i.d. -ammonia improved ?? ? 2.Hypothyroidism -continue supplement 3.Coagulopathy -INR rise ... Vitamin K IV 4.VIKAS onChronic kidney disease stage III -bicarb 12 this a.m.; started on bicarb drip -appreciate renal input follow renals/divalents Pneumatics Full code Will need continued inpatient stay due to acute hepatic encephalopathy . Time Spent With Patient Time: Total time managing care of this patient today ____ minutes. Quality Stroke Does the patient have a stroke diagnosis?: No VTE Prior VTE?: No VTE Risk Level:: Medical - moderate - high VTE Device Contraindication: N/A - Device Ordered VTE Drug Contraindication: Treatment Not Indicated
[2022-06-24] MEDS: Albumin Human 25 % 100 ML IV ×2 (11:20→14:35)
[2022-06-24 12:41] LABS: VBG Base Excess -10.6 mmol/L; VBG HCO3 14 mmol/L (22-26); VBG pCO2 29 mmHg; VBG pO2 173 mmHg
[2022-06-24 12:45] LABS: Venous Blood Gas Refer to POC result
[2022-06-24 15:21] VITALS: BP 110/57; PULSE 90; RESP 17; TEMP 36.4; O2SAT 95
--- NOTE | 2022-06-24 18:40 | P.EN_ITS ---
Event Note Date of Service: 06/24/22 Event Note: GI Consult-Full note dictated-History from EMR, office record, and his RN. Imp: Advanced EtOH-induced cirrhosis with chronic complications of ascites, hepatic encephalopathy, known nonbleeding esophageal varices/portal gastropathy, thrombocytopenia, and coagulopathy. He has not had any acute GI bleeding and workup has been negative for SBP. His mental status remains poor despite treatment with Lactulose and just minimally elevated Ammonia level. A head CT and abdominal CT have been negative for any acute process. He has developed some renal insufficiency and is being seen by Nephrology. Rec: Continue supportive care and observe. Follow ammonia level, PT/INR, renal function, and LFT's re: predictions for his short-term course. Start empiric po PPI. Advance diet if cleared by Speech with a swallowing eval. I think it would be important to address his code status with his family given his advanced liver disease and poor prognosis. Given his alcohol use as recently as the end of 2021 and his refusal to stop drinking despite multiple discussions documented in the record, I don't think he would be a transplant candidate. I don't think prednisolone would be indicated at this time regarding any underlying EtOH- hepatitis. Thanks Time Spent With Patient Time: Total time managing care of this patient today ____ minutes.
[2022-06-24 19:32] VITALS: BP 100/56; PULSE 92; RESP 17; TEMP 36.7; O2SAT 95
[2022-06-24 23:30] VITALS: BP 98/51; PULSE 89; RESP 16; TEMP 36.4; O2SAT 96
[2022-06-25] VITALS (10 sets, daily range): BP systolic 99–129; BP diastolic 56–69; PULSE 87–96; RESP 18–20; TEMP 36.3–37.5; O2SAT 94–96
[2022-06-25] MEDS: Sodium Bicarbonate 8.4% 150 MEQ in Dextrose 5 % 850 ML 100 MEQ IV (00:26)
--- NOTE | 2022-06-25 05:07 | CONS_ITS ---
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 HISTORY OF PRESENT ILLNESS: This has been obtained from the medical record, the patient's nurse and his office chart. The patient is a 57-year-old male with a long-standing history of alcohol abuse, although I am not sure if he is actively drinking prior to this admission. He has had complications of his liver disease including chronic anemia, ascites, coagulopathy, thrombocytopenia, and encephalopathy. The patient had last been admitted here in the Fall of 2021. He had been treated for alcohol-induced hepatitis at the time with a course of steroids. He was last seen in the office with Dr. Zavala in April of 2022, at which point he was tapering down on the steroid therapy and the plan had been to continue treatment including Xifaxan for the encephalopathy. The patient was admitted here on June 20 with worsening mental status with lethargy and confusion. Since admission, his mental status has remained poor, although according to his nurse, he has been able to take some oral medication and nutrition with assistance. He has not been ambulating. His workup has included a negative paracentesis in regard to spontaneous bacterial peritonitis. Other cultures have been negative as well. He has had some worsening renal function and has been seen by Nephrology as well. His most recent paracentesis was on June 20. There has been no reported GI bleeding here in the hospital nor any vomiting. He has been having liquid stools on the lactulose, although his mental status has not really improved. MEDICATIONS: His present medications include albuterol inhaler p.r.n., lactulose 40 g t.i.d., levothyroxine, magnesium, melatonin, midodrine, Zofran, sodium bicarbonate, and thiamine. He did receive a dose of IV vitamin K. PAST MEDICAL HISTORY: Alcohol-induced cirrhosis as above with multiple complications including ascites, encephalopathy, thrombocytopenia, coagulopathy, and chronic anemia. He did have an upper endoscopy in July 2021, evaluation of upper GI bleeding which revealed grade 2 esophageal varices without stigmata of recent bleeding and associated portal gastropathy. He was started on Nadolol at that time. He also had an upper endoscopy in May of 2020, showing esophageal varices and portal gastropathy as well. Other medical problems include renal insufficiency, asthma, history of pulmonary embolism, hypothyroidism, hyperlipidemia, and depression. SOCIAL HISTORY: Chronic alcohol abuse. FAMILY HISTORY: Noncontributory. REVIEW OF SYSTEMS: Presently, not obtainable. PHYSICAL EXAMINATION: GENERAL: The patient is lethargic, but arousable male. He does open his eyes to verbal stimuli, but is not oriented to place nor year. He does not answer other questions appropriately either. He is jaundiced. HEENT: Icteric sclerae. NECK: Supple without lymphadenopathy. CARDIAC: Normal S1 and S2. ABDOMEN: Nondistended, but ascites. It is soft. There is some mild diffuse tenderness. There is no palpable mass. LABORATORY DATA: White count 9.6, hemoglobin 8.0, platelets are 83,000. His hemoglobin on admission was 8.9, hemoglobin in April 2022 is 9.2. His PT 29.0 with INR 2.4 today compared to PT 21.1 with INR 1.8 on admission. His PT was 21.2 with his INR 1.8 in April. Sodium 137, potassium 4.0, chloride 115, CO2 of 12, BUN 20, and creatinine 2.3. His admission labs had shown of BUN of 18, creatinine 2.0. Lactic acid level was 2.5 at time. His paracentesis revealed 114 white blood cells with 59% lymphs, 33% monocytes, and nonmeasurable neutrophils. Stools had been Hemoccult negative. His ascites gram stain was negative and cultures from the ascites and blood cultures had been negative as well. Urine culture was negative. His abdominal CAT scan on admission revealed his known cirrhosis, but no focal liver lesion nor biliary obstruction. Known gallstones were again noted. There was no sign of cholecystitis. The pancreas was unremarkable. There was splenomegaly. There was no sign of any GI tract abnormalities. There was moderate amount of ascites. IMPRESSION: The patient is a 57-year-old male with advanced liver disease in relation to alcohol with multiple complicating factors including ascites, history of encephalopathy, thrombocytopenia, coagulopathy, esophageal varices without reported bleeding, and a chronic anemia. At this point, there does not appear to be any acute problem such as GI bleeding or spontaneous bacterial peritonitis. However, his overall status had declined with his somewhat worsening coagulopathy and increasing jaundice. His ammonia level has also climbed somewhat to 87 as of June 23, but down to 45 today. Unfortunately, his mental status has not improved significantly. Of note, a head CT was negative for any acute problems such as a bleed or other abnormality that would account for the poor mental status. At this point, since there are no acute problems to correct, I would simply continue supportive care including his treatment for encephalopathy and hope his mental status improves. I would not treat him with another course of steroids at this point in regard to the underlying liver disease. I do not think there is an acute problem with alcohol-induced hepatitis at this time. He has already been seen by Nephrology and I would defer current management of his ascites to them and hopefully, his renal function will stabilize.. I would continue his lactulose. I would add a prophylactic PPI as well. At this point, I think it would be important to address the short-term and long-term goals of his care with his family and address DNR status given his overall significant liver disease without any apparent chance for improvement. Given what I think has been fairly recent alcohol use, I do not think he would be a transplant candidate. Thank you for the consultation. MD YIN Michel/HERNAN / [phone] [email or web address]
[2022-06-25 08:14] LABS: MANUAL DIFF FLAG NO
[2022-06-25 08:25] LABS: Ammonia 39 umol/L (13-55)
[2022-06-25 08:27] LABS: Basophils Percent Auto 0.1 % (0-2); Eosinophils Percent Auto 0.4 % (0-4); Imm Gran Abs Auto 0.06 X10*3/uL (0.00-0.03); Imm Gran Pct Auto 0.7 % (0.0-0.4); Lymphocytes Absolute Auto 0.9 X10*3/uL (1.2-4.9); Lymphocytes Percent Auto 9.4 % (20-40); Mean Corpuscular HGB Conc 34.3 g/dl (31.0-36.0); Mean Corpuscular Hemoglobin 31.5 pg (27.0-33.0); Mean Corpuscular Volume 91.8 fL (80.0-98.0); Mean Platelet Volume 9.5 fL (9.4-12.4); Monocytes Absolute Auto 1.3 X10*3/uL (0.1-1.2); Monocytes Percent Auto 13.9 % (2-11); Neutrophils Absolute Auto 6.9 x10*3/uL (2.0-8.3); Neutrophils Percent Auto 75.5 % (45-73); Red Blood Count 2.19 X10*6/uL (4.60-5.80); Red Cell Distribution Width 18.5 % (11.0-16.0); White Blood Count 9.1 X10*3/uL (4.8-10.8)
[2022-06-25 08:34] LABS: Hematocrit 20.1 % (42.0-52.0); Hemoglobin 6.9 g/dl (14.0-18.0); Platelet Count 62 X10*3/uL (160-400)
[2022-06-25 08:35] LABS: Alanine Aminotransferase 17 U/L (0-40); Albumin Level 2.5 g/dL (3.5-5.0); Alkaline Phosphatase 65 U/L (39-117); Aspartate Amino Transferase 48 U/L (5-37); Bilirubin Total 10.7 mg/dL (0.0-1.0); Blood Urea Nitrogen 36 mg/dL (9-16); Creatinine Clr Calc Pharmacy 37.7; Estimated Glomerular Filt Rate 29; Glucose Fasting 128 mg/dL (60-99); Total Protein 5.2 g/dL (6.5-8.0)
[2022-06-25 08:41] LABS: INTERNATIONAL NORM RATIO 2.7 (0.9-1.1); Prothrombin Time 31.9 SEC (10.0-13.1)
[2022-06-25 08:43] LABS: Anion Gap 12 (12-20); Carbon Dioxide 19 mmol/L (22-29); Chloride 111 mmol/L (96-108); Sodium 139 mmol/L (135-145)
--- NOTE | 2022-06-25 10:45 | P.PNNP_ITS ---
Subjective Subjective Date of Service: 06/26/22 Interval history: Events noted Ill appearing Physical Exam Vital Signs: Vital Signs: Last Vital Signs Temp 98.7 F 06/25/22 07:44 Pulse 95 06/25/22 07:44 Resp 20 06/25/22 07:44 BP 112/56 L 06/25/22 07:44 Pulse Ox 95 06/25/22 07:44 O2 Del Method 06/25/22 07:44 BMI result Body Mass Index 23.3 Const: Other: No acute distress overnight Resp: Other: Clear to auscultation bilaterally no rales rhonchi or wheezes Cardio: Other: No S4; positive S1-S2; no S3 murmurs rubs or gallops GI: Other: Soft nontender nondistended normoactive bowel sounds Skin: Other: Jaundice. Warm and dry Neuro: Other: Unable to assess Extrem: Other: No edema bilateral Objective Data Labs 06/25/22 07:59 06/25/22 07:59 Labs: Laboratory Results - last 24 hr 06/24/22 06/25/22 06/25/22 12:34 07:59 07:59 WBC 9.1 RBC 2.19 L Hgb 6.9 L* Hct 20.1 L* MCV 91.8 MCH 31.5 MCHC 34.3 RDW 18.5 H Plt Count 62 L D MPV 9.5 Immature Gran % (Auto) 0.7 H Neut % (Auto) 75.5 H Lymph % (Auto) 9.4 L [place] % (Auto) 13.9 H Eos % (Auto) 0.4 Baso % (Auto) 0.1 Lymph # (Auto) 0.9 L [place] # (Auto) 1.3 H Eos # (Auto) 0.0 Baso # (Auto) 0.0 Abs Immat Gran (auto) 0.06 H Absolute Neuts (auto) 6.9 Absolute Nucleated RBC 0.000 Nucleated RBC % (auto) 0.0 PT 31.9 H INR 2.7 H VBG pH 7.30 L VBG pCO2 29 VBG pO2 173 VBG HCO3 14 L VBG O2 Saturation 100.0 VBG Base Excess -10.6 Sodium Potassium Chloride Carbon Dioxide Anion Gap BUN Creatinine Estim Creat Clear Calc Estimated GFR Fasting Glucose Calcium Total Bilirubin AST ALT Alkaline Phosphatase Ammonia Total Protein Albumin Blood Type Antibody Screen Crossmatch 06/25/22 06/25/22 06/25/22 07:59 07:59 09:37 WBC RBC Hgb Hct MCV MCH MCHC RDW Plt Count MPV Immature Gran % (Auto) Neut % (Auto) Lymph % (Auto) [place] % (Auto) Eos % (Auto) Baso % (Auto) Lymph # (Auto) [place] # (Auto) Eos # (Auto) Baso # (Auto) Abs Immat Gran (auto) Absolute Neuts (auto) Absolute Nucleated RBC Nucleated RBC % (auto) PT INR VBG pH VBG pCO2 VBG pO2 VBG HCO3 VBG O2 Saturation VBG Base Excess Sodium 139 Potassium 3.0 L D Chloride 111 H Carbon Dioxide 19 L Anion Gap 12 BUN 36 H Creatinine 2.34 H Estim Creat Clear Calc 37.7 Estimated GFR 29 Fasting Glucose 128 H Calcium 9.0 Total Bilirubin 10.7 H AST 48 H ALT 17 Alkaline Phosphatase 65 Ammonia 39 Total Protein 5.2 L Albumin 2.5 L Blood Type O Positive Antibody Screen NEGATIVE Crossmatch See Detail Microbiology Microbiology Results: Microbiology 06/20/22 17:01 Abdominal Fluid Gram Stain - Final 06/20/22 17:01 Abdominal Fluid Routine Culture - Final No growth after 2 days 06/20/22 17:01 Abdominal Fluid Anaerobic Culture - Preliminary No growth to date. 06/20/22 15:14 Blood - Venous Blood Culture - Preliminary No growth after 48 hours. 06/20/22 15:13 Blood - Venous Blood Culture - Preliminary No growth after 48 hours. 06/20/22 Unknown Urine Catheterized - Tobar Catheter Urine Culture - Final Procedures Date of Service Date of Service: 06/25/22 Assessment & Plan Assessment and plan (1) Acute hepatic encephalopathy: Status: Acute (2) Acute kidney injury: Status: Acute Plan 57-year-old man with a history of CKD stage IIIb (BL Cr 1.6-1.9mg/dl) due to type 2 HRS (requires interval paracentesis with progressive GFR loss). He has a history of ongoing ETOH use and active daily motrin use. He presents for AMS. He is found to have decompensated etoh cirrhosis and is jaundiced. Course is now complicated by VIKAS and Acidosis. 1.Non-oliguric VIKAS on CKD CKD stage IIIb due to Type 2 HRS requiring interval paracentesis. Now with VIKAS in the setting of Hyalinuria and bland UA Normotensive This is not type 1 HRS This is pre-renal azotemia Perhaps some ATN will develop, but so far renal hypoperfusion is primary issue. - Monitor venous Ammonia - No need for midodrine or octreotide - Avoid IV contrast - Bladder scans to monitor for retention Check urine Na/Cr/Protein (ordered) 2. Low tCO2 Met Acidosis vs resp alkalosis Check ABG DC Bicarb for now replace K 3.Severe anemia/Thrombocytopenia Time Spent With Patient Time: Total time managing care of this patient today ____ minutes. Progress Note: Quality Stroke Does the patient have a stroke diagnosis?: No
[2022-06-25] MEDS: Magnesium Oxide 400 MG TABLET PO (10:57)
[2022-06-25] MEDS: 0.9 % Sodium Chloride Flush 3 ML SYRINGE IVFLUSH ×2 (10:57→14:57)
[2022-06-25] MEDS: Lactulose 20 GM/30 ML SOLUTION 40 GM PO ×3 (10:57→20:27)
[2022-06-25] MEDS: Midodrine HCl 5 MG TABLET PO (10:57)
[2022-06-25] MEDS: Thiamine HCL 100 MG in 0.9 % Sodium Chloride 100 ML 202 MG IV (10:57)
--- NOTE | 2022-06-25 11:10 | MHC.CLN ---
F/U DIET RX: F/L-APPRORPIATE RECOMMEND ADDING ENSURE BID TO INCREASE KCALS AND PO PROTEIN FOR WOUND HEALING SUPP TO PROVIDE 700KCALS, 40G PROTEIN NOTED WOUND CHANGED TO [employer]OR PO INTAKE AND SUPPLEMENT ACCEPTANCE RD TO FOLLOW WEEKLY
[2022-06-25 13:56] LABS: ABG Base Excess -4.6 mmol/L; ABG HCO3 18 mmol/L (22-26); ABG pCO2 28 mmHg (32-45); ABG pH 7.42 (7.35-7.45); ABG pO2 81 mmHg (83-108)
[2022-06-25 13:56] LABS: ABG Refer to POC result
--- NOTE | 2022-06-25 14:53 | P.PNIM_ITS ---
Subjective Subjective Date of Service: 06/25/22 Interval History: More alert this a.m. taking p.o. as Review of Systems Denies chest pain Denies shortness of breath Denies nausea vomiting diarrhea Denies fever chills Physical Exam Vital Signs: Vital Signs: Last Vital Signs Temp 97.4 F 06/25/22 12:18 Pulse 95 06/25/22 12:18 Resp 18 06/25/22 12:18 BP 129/60 06/25/22 12:18 Pulse Ox 95 06/25/22 07:44 O2 Del Method 06/25/22 07:44 BMI result Body Mass Index 23.3 Const: Other: No acute distress overnight Resp: Other: Clear to auscultation bilaterally no rales rhonchi or wheezes Cardio: Other: No S4; positive S1-S2; no S3 murmurs rubs or gallops GI: Other: Soft nontender nondistended normoactive bowel sounds Extrem: Other: No edema bilateral Objective Data Active Medications Albuterol Sulfate (Albuterol Sulfate 90 Mcg 8 Gm Inhaler) 2 puff INHALE Q4H PRN PRN Reason: Shortness Of Breath Thiamine HCl 100 mg/ Sodium (Chloride) 101 mls @ 202 mls/hr IV DAILY [facility] Last Infusion: 06/25/22 11:40 Dose: 0 mls/hr Documented By: GABE Lactulose (Lactulose 20 Gm/30 Ml Solution) 40 gm PO TID [facility] Last Admin: 06/25/22 10:57 Dose: 40 gm Documented By: GABE Levothyroxine Sodium (Levothyroxine Sodium 25 Mcg Tablet) 25 mcg PO DAILY@0600 [facility] Last Admin: 06/25/22 05:13 Dose: Not Given Documented By: MARY Non-Admin Reason: Patient Refused Magnesium Oxide (Magnesium Oxide 400 Mg Tablet) 400 mg PO DAILY [facility] Last Admin: 06/25/22 10:57 Dose: 400 mg Documented By: GABE Melatonin (Melatonin 3 Mg Tablet) 6 mg PO BEDTIME PRN PRN Reason: Insomnia Midodrine (Midodrine Hcl 5 Mg Tablet) 5 mg PO DAILY [facility] Last Admin: 06/25/22 10:57 Dose: 5 mg Documented By: GABE Omeprazole (Omeprazole 40 Mg [place].) 40 mg PO DAILY@0630 [facility] Last Admin: 06/25/22 05:13 Dose: Not Given Documented By: MARY Non-Admin Reason: Patient Refused Ondansetron HCl (Ondansetron Hcl 4 Mg/2 Ml Vial) 4 mg IVPUSH Q8H PRN PRN Reason: Nausea and Vomiting Pharmacy Consult (Consult Rx Perform Med Rec) 1 each MISCELLANE ONCE PRN PRN Reason: Consult order Sodium Chloride (0.9 % Sodium Chloride Flush 3 Ml Syringe) 3 ml IVFLUSH QSHIFT [facility] Last Admin: 06/25/22 10:57 Dose: 3 ml Documented By: GABE Labs 06/25/22 07:59 06/25/22 07:59 Labs: Laboratory Results - last 24 hr 06/25/22 06/25/22 06/25/22 07:59 07:59 07:59 MCV 91.8 MCH 31.5 MCHC 34.3 RDW 18.5 H Plt Count 62 L D MPV 9.5 Immature Gran % (Auto) 0.7 H Neut % (Auto) 75.5 H Lymph % (Auto) 9.4 L [place] % (Auto) 13.9 H Eos % (Auto) 0.4 Baso % (Auto) 0.1 Lymph # (Auto) 0.9 L [place] # (Auto) 1.3 H Eos # (Auto) 0.0 Baso # (Auto) 0.0 Abs Immat Gran (auto) 0.06 H Absolute Neuts (auto) 6.9 Absolute Nucleated RBC 0.000 Nucleated RBC % (auto) 0.0 PT 31.9 H INR 2.7 H O2 Saturation ABG pH at Pt Temp ABG pCO2 at Pt Temp ABG pO2 at Pt Temp ABG HCO3 ABG Base Excess (Actual) Anion Gap 12 Estim Creat Clear Calc 37.7 Estimated GFR 29 Fasting Glucose 128 H Calcium 9.0 Total Bilirubin 10.7 H AST 48 H ALT 17 Alkaline Phosphatase 65 Ammonia Total Protein 5.2 L Albumin 2.5 L Blood Type Antibody Screen Crossmatch 06/25/22 06/25/22 06/25/22 07:59 09:37 13:50 MCV MCH MCHC RDW Plt Count MPV Immature Gran % (Auto) Neut % (Auto) Lymph % (Auto) [place] % (Auto) Eos % (Auto) Baso % (Auto) Lymph # (Auto) [place] # (Auto) Eos # (Auto) Baso # (Auto) Abs Immat Gran (auto) Absolute Neuts (auto) Absolute Nucleated RBC Nucleated RBC % (auto) PT INR O2 Saturation 97.0 ABG pH at Pt Temp 7.42 ABG pCO2 at Pt Temp 28 L ABG pO2 at Pt Temp 81 L ABG HCO3 18 L ABG Base Excess (Actual) -4.6 Anion Gap Estim Creat Clear Calc Estimated GFR Fasting Glucose Calcium Total Bilirubin AST ALT Alkaline Phosphatase Ammonia 39 Total Protein Albumin Blood Type O Positive Antibody Screen NEGATIVE Crossmatch See Detail Microbiology Microbiology Results: Microbiology 06/20/22 17:01 Gram Stain - Final Abdominal Fluid Routine Culture - Final No growth after 2 days Anaerobic Culture - Preliminary No growth to date. Assessment and Plan (1) Acute hepatic encephalopathy: Status: Acute (2) Coagulopathy: Status: Acute (3) VIKAS (acute kidney injury): Status: Acute Plan 57-year-old male with pertinent history of alcohol use disorder with alcoholic cirrhosis, history of GI bleeding, hypothyroidism, mood disorder, mixed hy perlipidemia who was brought to the emergency department for evaluation of altered mentation. 1.Acute hepatic encephalopathy secondary to decompensated liver cirrhosis -more alert this a.m. -continue lactulose 40 g t.i.d. -ammonia improved ?? ? 2.Hypothyroidism -continue supplement 3.Coagulopathy -INR rise despite IV vitamin K... Vitamin K IV additional doses 4.VIKAS onChronic kidney disease stage III -bicarb 18 this a.m.; started on bicarb drip; will switch to oral bicarb when greater than 20 -appreciate renal input -follow renals/divalents Pneumatics Full code Will need continued inpatient stay due to acute hepatic encephalopathy . Time Spent With Patient Time: Total time managing care of this patient today ____ minutes. Quality Stroke Does the patient have a stroke diagnosis?: No VTE Prior VTE?: No VTE Risk Level:: Medical - moderate - high VTE Device Contraindication: N/A - Device Ordered VTE Drug Contraindication: Treatment Not Indicated
--- NOTE | 2022-06-25 15:42 | MHC.CM.PN ---
per rounds pt not ready for dc dc plan home
[2022-06-26 03:44] VITALS: BP 132/65; PULSE 94; RESP 20; TEMP 37.3; O2SAT 94
[2022-06-26] MEDS: oxyCODONE HCl Immed Release 5 MG TABLET PO (05:57)
[2022-06-26] MEDS: Omeprazole 40 MG CAPSULE.DR PO (05:57)
[2022-06-26] MEDS: Levothyroxine Sodium 25 MCG TABLET PO (05:57)
[2022-06-26] MEDS: Magnesium Oxide 400 MG TABLET PO (07:58)
[2022-06-26] MEDS: Lactulose 20 GM/30 ML SOLUTION 40 GM PO ×3 (07:58→21:08)
[2022-06-26] MEDS: Thiamine HCL 100 MG in 0.9 % Sodium Chloride 100 ML 202 MG IV (07:58)
[2022-06-26] MEDS: 0.9 % Sodium Chloride Flush 3 ML SYRINGE IVFLUSH ×2 (07:59→18:04)
[2022-06-26] MEDS: Midodrine HCl 5 MG TABLET PO (07:59)
[2022-06-26 08:00] VITALS: BP 126/71; PULSE 90; RESP 20; TEMP 37.1; O2SAT 93
[2022-06-26 08:16] LABS: MANUAL DIFF FLAG NO
[2022-06-26 08:26] LABS: Basophils Percent Auto 0.1 % (0-2); Eosinophils Absolute Auto 0.2 X10*3/uL (0.0-0.4); Eosinophils Percent Auto 1.5 % (0-4); Hematocrit 22.9 % (42.0-52.0); Hemoglobin 7.8 g/dl (14.0-18.0); Imm Gran Abs Auto 0.09 X10*3/uL (0.00-0.03); Imm Gran Pct Auto 0.9 % (0.0-0.4); Lymphocytes Absolute Auto 0.9 X10*3/uL (1.2-4.9); Lymphocytes Percent Auto 9.1 % (20-40); Mean Corpuscular HGB Conc 34.1 g/dl (31.0-36.0); Mean Corpuscular Volume 90.9 fL (80.0-98.0); Mean Platelet Volume 12.4 fL (9.4-12.4); Monocytes Absolute Auto 1.2 X10*3/uL (0.1-1.2); Monocytes Percent Auto 11.6 % (2-11); Neutrophils Absolute Auto 7.7 x10*3/uL (2.0-8.3); Neutrophils Percent Auto 76.8 % (45-73); Platelet Count 61 X10*3/uL (160-400); Red Blood Count 2.52 X10*6/uL (4.60-5.80); White Blood Count 10.1 X10*3/uL (4.8-10.8)
[2022-06-26 08:44] LABS: Alanine Aminotransferase 19 U/L (0-40); Albumin Level 2.4 g/dL (3.5-5.0); Alkaline Phosphatase 65 U/L (39-117); Aspartate Amino Transferase 39 U/L (5-37); Bilirubin Total 12.5 mg/dL (0.0-1.0); Blood Urea Nitrogen 42 mg/dL (9-16); Calcium 8.5 mg/dL (8.4-10.2); Creatinine Clr Calc Pharmacy 40.1; Estimated Glomerular Filt Rate 31; Glucose Fasting 139 mg/dL (60-99); Total Protein 5.3 g/dL (6.5-8.0)
[2022-06-26 08:46] LABS: Ammonia 38 umol/L (13-55)
[2022-06-26 08:55] LABS: Anion Gap 14 (12-20); Carbon Dioxide 16 mmol/L (22-29); Chloride 108 mmol/L (96-108); Potassium 3.1 mmol/L (3.3-5.1); Sodium 135 mmol/L (135-145)
--- NOTE | 2022-06-26 10:01 | PM.PNNEP ---
Subjective Subjective Date of Service: 06/27/22 Interval history: Events noted Ill appearing Physical Exam Vital Signs: Vital Signs: Last Vital Signs Temp 98.7 F 06/26/22 08:00 Pulse 90 06/26/22 08:00 Resp 20 06/26/22 08:00 BP 126/71 06/26/22 08:00 Pulse Ox 93 06/26/22 08:00 O2 Del Method 06/26/22 08:00 BMI result Body Mass Index 23.3 Const: Other: No acute distress overnight Resp: Other: Clear to auscultation bilaterally no rales rhonchi or wheezes Cardio: Other: No S4; positive S1-S2; no S3 murmurs rubs or gallops GI: Other: Soft nontender nondistended normoactive bowel sounds Skin: Other: Jaundice. Warm and dry Neuro: Other: Unable to assess Extrem: Other: No edema bilateral Objective Data Labs 06/26/22 07:56 06/26/22 07:56 Labs: Laboratory Results - last 24 hr 06/25/22 06/25/22 06/26/22 09:37 13:50 07:56 WBC 10.1 RBC 2.52 L Hgb 7.8 L Hct 22.9 L MCV 90.9 MCH 31.0 MCHC 34.1 RDW 18.0 H Plt Count 61 L MPV 12.4 Immature Gran % (Auto) 0.9 H Neut % (Auto) 76.8 H Lymph % (Auto) 9.1 L [place] % (Auto) 11.6 H Eos % (Auto) 1.5 Baso % (Auto) 0.1 Lymph # (Auto) 0.9 L [place] # (Auto) 1.2 Eos # (Auto) 0.2 Baso # (Auto) 0.0 Abs Immat Gran (auto) 0.09 H Absolute Neuts (auto) 7.7 Absolute Nucleated RBC 0.000 Nucleated RBC % (auto) 0.0 O2 Saturation 97.0 ABG pH at Pt Temp 7.42 ABG pCO2 at Pt Temp 28 L ABG pO2 at Pt Temp 81 L ABG HCO3 18 L ABG Base Excess (Actual) -4.6 Sodium Potassium Chloride Carbon Dioxide Anion Gap BUN Creatinine Estim Creat Clear Calc Estimated GFR Fasting Glucose Calcium Total Bilirubin AST ALT Alkaline Phosphatase Ammonia Total Protein Albumin Blood Type O Positive Antibody Screen NEGATIVE Crossmatch See Detail 06/26/22 06/26/22 07:56 08:31 WBC RBC Hgb Hct MCV MCH MCHC RDW Plt Count MPV Immature Gran % (Auto) Neut % (Auto) Lymph % (Auto) [place] % (Auto) Eos % (Auto) Baso % (Auto) Lymph # (Auto) [place] # (Auto) Eos # (Auto) Baso # (Auto) Abs Immat Gran (auto) Absolute Neuts (auto) Absolute Nucleated RBC Nucleated RBC % (auto) O2 Saturation ABG pH at Pt Temp ABG pCO2 at Pt Temp ABG pO2 at Pt Temp ABG HCO3 ABG Base Excess (Actual) Sodium 135 Potassium 3.1 L Chloride 108 Carbon Dioxide 16 L Anion Gap 14 BUN 42 H Creatinine 2.20 H Estim Creat Clear Calc 40.1 Estimated GFR 31 Fasting Glucose 139 H Calcium 8.5 Total Bilirubin 12.5 H AST 39 H ALT 19 Alkaline Phosphatase 65 Ammonia 38 Total Protein 5.3 L Albumin 2.4 L Blood Type Antibody Screen Crossmatch Microbiology Microbiology Results: Microbiology 06/20/22 17:01 Abdominal Fluid Gram Stain - Final 06/20/22 17:01 Abdominal Fluid Routine Culture - Final No growth after 2 days 06/20/22 17:01 Abdominal Fluid Anaerobic Culture - Final NO GROWTH AFTER 5 DAYS 06/20/22 15:14 Blood - Venous Blood Culture - Final No growth after 5 days. 06/20/22 15:13 Blood - Venous Blood Culture - Final No growth after 5 days. 06/20/22 Unknown Urine Catheterized - Tobar Catheter Urine Culture - Final Procedures Date of Service Date of Service: 06/26/22 Assessment & Plan Assessment and plan (1) Acute hepatic encephalopathy: Status: Acute (2) Acute kidney injury: Status: Acute Plan 57-year-old man with a history of CKD stage IIIb (BL Cr 1.6-1.9mg/dl) due to type 2 HRS (requires interval paracentesis with progressive GFR loss). He has a history of ongoing ETOH use and active daily motrin use. He presents for AMS. He is found to have decompensated etoh cirrhosis and is jaundiced. Course is now complicated by VIKAS and Acidosis. 1.Non-oliguric VIKAS on CKD CKD stage IIIb due to Type 2 HRS requiring interval paracentesis. Now with VIKAS in the setting of Hyalinuria and bland UA Normotensive This is not type 1 HRS This is pre-renal azotemia Perhaps some ATN will develop, but so far renal hypoperfusion is primary issue. - Monitor venous Ammonia - No need for midodrine or octreotide - Avoid IV contrast - Bladder scans to monitor for retention Check urine Na/Cr 2. Low tCO2 combined MEt Acidosis with resp alkalosis DC Bicarb for now Watch and replace K 3.Severe anemia/Thrombocytopenia Time Spent With Patient Time: Total time managing care of this patient today ____ minutes. Progress Note: Quality Stroke Does the patient have a stroke diagnosis?: No
[2022-06-26] MEDS: Morphine Sulfate 4 MG/ML CARTRIDGE IVPUSH (12:27)
--- NOTE | 2022-06-26 14:20 | HO.PM.IMPN ---
Subjective Subjective Date of Service: 06/26/22 Interval History: Abdominal pain worsening this morning; requesting pain meds which is new. Still very lethargic Review of Systems Denies chest pain Denies shortness of breath Denies nausea vomiting diarrhea Denies fever chills Physical Exam Vital Signs: Vital Signs: Last Vital Signs Temp 98.7 F 06/26/22 08:00 Pulse 90 06/26/22 08:00 Resp 20 06/26/22 08:00 BP 126/71 06/26/22 08:00 Pulse Ox 93 06/26/22 08:00 O2 Del Method 06/26/22 08:00 BMI result Body Mass Index 23.3 Const: Other: No acute distress overnight Resp: Other: Clear to auscultation bilaterally no rales rhonchi or wheezes Cardio: Other: No S4; positive S1-S2; no S3 murmurs rubs or gallops GI: Other: Soft nontender nondistended normoactive bowel sounds Extrem: Other: No edema bilateral Objective Data Active Medications Albuterol Sulfate (Albuterol Sulfate 90 Mcg 8 Gm Inhaler) 2 puff INHALE Q4H PRN PRN Reason: Shortness Of Breath Thiamine HCl 100 mg/ Sodium (Chloride) 101 mls @ 202 mls/hr IV DAILY [facility] Last Infusion: 06/26/22 08:43 Dose: 0 mls/hr Documented By: FRANCISCO Lactulose (Lactulose 20 Gm/30 Ml Solution) 40 gm PO TID [facility] Last Admin: 06/26/22 07:58 Dose: 40 gm Documented By: JERMAINE Levothyroxine Sodium (Levothyroxine Sodium 25 Mcg Tablet) 25 mcg PO DAILY@0600 [facility] Last Admin: 06/26/22 05:57 Dose: 25 mcg Documented By: MARY Magnesium Oxide (Magnesium Oxide 400 Mg Tablet) 400 mg PO DAILY [facility] Last Admin: 06/26/22 07:58 Dose: 400 mg Documented By: JERMAINE Melatonin (Melatonin 3 Mg Tablet) 6 mg PO BEDTIME PRN PRN Reason: Insomnia Midodrine (Midodrine Hcl 5 Mg Tablet) 5 mg PO DAILY [facility] Last Admin: 06/26/22 07:59 Dose: 5 mg Documented By: JERMAINE Omeprazole (Omeprazole 40 Mg Capsule.) 40 mg PO DAILY@0630 [facility] Last Admin: 06/26/22 05:57 Dose: 40 mg Documented By: MARY Ondansetron HCl (Ondansetron Hcl 4 Mg/2 Ml Vial) 4 mg IVPUSH Q8H PRN PRN Reason: Nausea and Vomiting Pharmacy Consult (Consult Rx Perform Med Rec) 1 each MISCELLANE ONCE PRN PRN Reason: Consult order Sodium Chloride (0.9 % Sodium Chloride Flush 3 Ml Syringe) 3 ml IVFLUSH QSHIFT [facility] Last Admin: 06/26/22 07:59 Dose: 3 ml Documented By: MELINAIMAT Labs 06/26/22 07:56 06/26/22 07:56 Labs: Laboratory Results - last 24 hr 06/25/22 06/26/22 06/26/22 09:37 07:56 07:56 MCV 90.9 MCH 31.0 MCHC 34.1 RDW 18.0 H Plt Count 61 L MPV 12.4 Immature Gran % (Auto) 0.9 H Neut % (Auto) 76.8 H Lymph % (Auto) 9.1 L [place] % (Auto) 11.6 H Eos % (Auto) 1.5 Baso % (Auto) 0.1 Lymph # (Auto) 0.9 L [place] # (Auto) 1.2 Eos # (Auto) 0.2 Baso # (Auto) 0.0 Abs Immat Gran (auto) 0.09 H Absolute Neuts (auto) 7.7 Absolute Nucleated RBC 0.000 Nucleated RBC % (auto) 0.0 Anion Gap 14 Estim Creat Clear Calc 40.1 Estimated GFR 31 Fasting Glucose 139 H Calcium 8.5 Total Bilirubin 12.5 H AST 39 H ALT 19 Alkaline Phosphatase 65 Ammonia Total Protein 5.3 L Albumin 2.4 L Crossmatch See Detail 06/26/22 08:31 MCV MCH MCHC RDW Plt Count MPV Immature Gran % (Auto) Neut % (Auto) Lymph % (Auto) [place] % (Auto) Eos % (Auto) Baso % (Auto) Lymph # (Auto) [place] # (Auto) Eos # (Auto) Baso # (Auto) Abs Immat Gran (auto) Absolute Neuts (auto) Absolute Nucleated RBC Nucleated RBC % (auto) Anion Gap Estim Creat Clear Calc Estimated GFR Fasting Glucose Calcium Total Bilirubin AST ALT Alkaline Phosphatase Ammonia 38 Total Protein Albumin Crossmatch Microbiology Microbiology Results: Microbiology 06/20/22 17:01 Gram Stain - Final Abdominal Fluid Routine Culture - Final No growth after 2 days Anaerobic Culture - Final NO GROWTH AFTER 5 DAYS 06/20/22 15:14 Blood Culture - Final Blood - Venous No growth after 5 days. 06/20/22 15:13 Blood Culture - Final Blood - Venous No growth after 5 days. Assessment and Plan (1) Acute hepatic encephalopathy: Status: Acute (2) Coagulopathy: Status: Acute (3) VIKAS (acute kidney injury): Status: Acute Plan 57-year-old male with pertinent history of alcohol use disorder with alcoholic cirrhosis, history of GI bleeding, hypothyroidism, mood disorder, mixed hyperlipidemia who was brought to the emergency department for evaluation of altered mentation. 1.Acute hepatic encephalopathy secondary to decompensated liver cirrhosis -abdominal pain this a.m. -continue lactulose 40 g t.i.d. -ammonia improved -book paracentesis ?? ? 2.Hypothyroidism -continue supplement 3.Coagulopathy -INR rise despite IV vitamin K... Vitamin K IV additional doses -recheck in a.m. 4.VIKAS onChronic kidney disease stage III -bicarb 18 this a.m.; started on bicarb drip; will switch to oral bicarb when greater than 20 -appreciate renal input -follow renals/divalents Pneumatics Full code Will need continued inpatient stay due to acute hepatic encephalopathy . Time Spent With Patient Time: Total time managing care of this patient today ____ minutes. Quality Stroke Does the patient have a stroke diagnosis?: No VTE Prior VTE?: No VTE Risk Level:: Medical - moderate - high VTE Device Contraindication: N/A - Device Ordered VTE Drug Contraindication: Treatment Not Indicated
[2022-06-26] MEDS: Lidocaine HCl 1 % MPF 5 ML VIAL 10 ML SUBCUT (17:15)
[2022-06-26 17:25] VITALS: BP 119/64; PULSE 92; RESP 18; TEMP 37.1; O2SAT 91
[2022-06-26] MEDS: Potassium Chloride/H20 10 MEQ/100 ML PIGGYBACK 100 MEQ IV ×4 (18:06→22:35)
[2022-06-26 19:24] VITALS: BP 122/65; PULSE 94; RESP 18; TEMP 37.1; O2SAT 92
[2022-06-26] MEDS: oxyCODONE HCl Immed Release 5 MG TABLET 10 MG PO (19:25)
[2022-06-26 23:16] VITALS: BP 130/73; PULSE 98; RESP 20; TEMP 37.4; O2SAT 92
[2022-06-27] VITALS (9 sets, daily range): BP systolic 100–134; BP diastolic 57–70; PULSE 90–113; RESP 16–22; TEMP 36.7–37.5; O2SAT 91–92
[2022-06-27] MEDS: oxyCODONE HCl Immed Release 5 MG TABLET 10 MG PO ×2 (00:12→08:53)
[2022-06-27] MEDS: Levothyroxine Sodium 25 MCG TABLET PO (06:01)
[2022-06-27] MEDS: Omeprazole 40 MG CAPSULE.DR PO (06:01)
[2022-06-27 06:35] LABS: INTERNATIONAL NORM RATIO 1.9 (0.9-1.1); Prothrombin Time 22.1 SEC (10.0-13.1)
[2022-06-27 06:45] LABS: Hematocrit 22.9 % (42.0-52.0); Hemoglobin 7.9 g/dl (14.0-18.0); Mean Corpuscular HGB Conc 34.5 g/dl (31.0-36.0); Mean Corpuscular Hemoglobin 31.1 pg (27.0-33.0); Mean Corpuscular Volume 90.2 fL (80.0-98.0); Mean Platelet Volume 11.5 fL (9.4-12.4); Red Blood Count 2.54 X10*6/uL (4.60-5.80); Red Cell Distribution Width 17.9 % (11.0-16.0); White Blood Count 7.2 X10*3/uL (4.8-10.8)
[2022-06-27 07:02] LABS: Platelet Count 76 X10*3/uL (160-400)
[2022-06-27 07:05] LABS: Alanine Aminotransferase 19 U/L (0-40); Albumin Level 2.5 g/dL (3.5-5.0); Alkaline Phosphatase 72 U/L (39-117); Anion Gap 15 (12-20); Aspartate Amino Transferase 38 U/L (5-37); Bilirubin Total 13.9 mg/dL (0.0-1.0); Blood Urea Nitrogen 52 mg/dL (9-16); Calcium 8.8 mg/dL (8.4-10.2); Carbon Dioxide 14 mmol/L (22-29); Chloride 108 mmol/L (96-108); Creatinine Clr Calc Pharmacy 30.6; Estimated Glomerular Filt Rate 23; Glucose Fasting 126 mg/dL (60-99); Potassium 3.4 mmol/L (3.3-5.1); Sodium 134 mmol/L (135-145); Total Protein 5.4 g/dL (6.5-8.0)
[2022-06-27 08:00] LABS: Band Neutrophils Percent 6 % (3-5); Eosinophils Absolute Manual 0.2 X10*3/uL (0.0-0.4); Eosinophils Percent Manual 3 % (0-4); Lymphocytes Absolute Manual 0.4 X10*3/uL (1.2-4.9); Lymphocytes Percent Manual 5 % (20-40); Monocytes Absolute Manual 0.4 X10*3/uL (0.1-1.2); Monocytes Percent Manual 6 % (2-11); Neutrophils Absolute Manual 6.2 X10*3/uL (2.0-8.3); Neutrophils Percent Manual 80 % (45-73)
[2022-06-27 08:02] LABS: Acanthocytes 3+ (>5) /OIF; RBC Morphology NOTED
[2022-06-27 08:03] LABS: Hypochromasia 1+ (5-14) /OIF; Schistocytes 1+ (0-2) /OIF
[2022-06-27 08:04] LABS: Platelet Estimate DECREASED (NORMAL); Platelet Morphology Comment NORMAL
[2022-06-27 08:15] LABS: Ammonia 72 umol/L (13-55)
[2022-06-27] MEDS: Lactulose 20 GM/30 ML SOLUTION 40 GM PO ×2 (08:48→17:29)
[2022-06-27] MEDS: Thiamine HCL 100 MG in 0.9 % Sodium Chloride 100 ML 202 MG IV (08:49)
[2022-06-27] MEDS: Midodrine HCl 5 MG TABLET PO (08:50)
[2022-06-27] MEDS: 0.9 % Sodium Chloride Flush 3 ML SYRINGE IVFLUSH ×2 (08:52→15:41)
[2022-06-27] MEDS: Magnesium Oxide 400 MG TABLET PO (08:53)
--- NOTE | 2022-06-27 09:10 | P.CDIC_ITS ---
CDI Concurrent Query Documentation Clarification: PHYSICIAN'S DOCUMENTATION REQUEST Date of Query: 06/27/22 0910 Patient Name: Abraham Celis Admit Date: 06/20/22 Dear Doctor, A review of the medical record indicates additional documentation may be needed. Please review below and update the documentation accordingly. Risk Factors/Clinical Indicators/Treatments potassium on 06/26/22: 3.1 received IV potassium chloride Based on the above, could you clarify in the Progress Notes the appropriate diagnosis, if significant, that supports the above abnormalities and additional evaluation, monitoring, and/or treatment rendered: * Labs indicate a diagnosis of (please specify) * Other (please specify) * Unable to determine Use of terms such as suspected, likely, concern for, or probable (associated with a specific diagnosis that is being evaluated, monitored, or treated as if it exists) are acceptable and can be coded in the inpatient setting, when documented at the time of discharge. Thank you, Michelle Salmeron RN Extension: [phone] Please use your independent medical judgment in providing your response. THIS QUERY IS PART OF THE PERMANENT MEDICAL RECORD Provider Response: Other Other Diagnosis: Labs indicated diagnosis of of hypokalemia
--- NOTE | 2022-06-27 11:12 | PM.PNNEP ---
Subjective Subjective Date of Service: 06/27/22 Interval history: Events noted lethargic Physical Exam Vital Signs: Vital Signs: Last Vital Signs Temp 98.8 F 06/27/22 07:28 Pulse 106 H 06/27/22 07:28 Resp 16 06/27/22 07:28 BP 134/69 06/27/22 07:28 Pulse Ox 91 L 06/27/22 07:28 O2 Del Method 06/27/22 07:28 BMI result Body Mass Index 23.3 Const: Other: No acute distress overnight Resp: Other: Clear to auscultation bilaterally no rales rhonchi or wheezes Cardio: Other: No S4; positive S1-S2; no S3 murmurs rubs or gallops GI: Other: Soft nontender nondistended normoactive bowel sounds Skin: Other: Jaundice. Warm and dry Neuro: Other: Unable to assess Extrem: Other: No edema bilateral Objective Data Labs 06/27/22 06:00 06/27/22 06:00 Labs: Laboratory Results - last 24 hr 06/27/22 06/27/22 06/27/22 06:00 06:00 06:00 WBC 7.2 RBC 2.54 L Hgb 7.9 L Hct 22.9 L MCV 90.2 MCH 31.1 MCHC 34.5 RDW 17.9 H Plt Count 76 L MPV 11.5 Immature Gran % (Auto) Cancelled Neut % (Auto) Cancelled Lymph % (Auto) Cancelled [place] % (Auto) Cancelled Eos % (Auto) Cancelled Baso % (Auto) Cancelled Lymph # (Auto) Cancelled [place] # (Auto) Cancelled Eos # (Auto) Cancelled Baso # (Auto) Cancelled Abs Immat Gran (auto) Cancelled Absolute Neuts (auto) Cancelled Absolute Nucleated RBC 0.000 Nucleated RBC % (auto) 0.0 Neutrophils % (Manual) 80 H Band Neutrophils % 6 H Lymphocytes % (Manual) 5 L Monocytes % (Manual) 6 Eosinophils % (Manual) 3 Abs Neuts (Manual) 6.2 Lymphocytes # (Manual) 0.4 L Monocytes # (Manual) 0.4 Eosinophils # (Manual) 0.2 Platelet Estimate DECREASED Plt Morphology Comment NORMAL RBC Morphology NOTED Hypochromasia 1+ (5-14) Acanthocytes (Spur) 3+ (>5) Schistocytes 1+ (0-2) PT 22.1 H INR 1.9 H Sodium 134 L Potassium 3.4 Chloride 108 Carbon Dioxide 14 L Anion Gap 15 BUN 52 H Creatinine 2.88 H Estim Creat Clear Calc 30.6 Estimated GFR 23 Fasting Glucose 126 H Calcium 8.8 Total Bilirubin 13.9 H AST 38 H ALT 19 Alkaline Phosphatase 72 Ammonia Total Protein 5.4 L Albumin 2.5 L 06/27/22 08:00 WBC RBC Hgb Hct MCV MCH MCHC RDW Plt Count MPV Immature Gran % (Auto) Neut % (Auto) Lymph % (Auto) [place] % (Auto) Eos % (Auto) Baso % (Auto) Lymph # (Auto) [place] # (Auto) Eos # (Auto) Baso # (Auto) Abs Immat Gran (auto) Absolute Neuts (auto) Absolute Nucleated RBC Nucleated RBC % (auto) Neutrophils % (Manual) Band Neutrophils % Lymphocytes % (Manual) Monocytes % (Manual) Eosinophils % (Manual) Abs Neuts (Manual) Lymphocytes # (Manual) Monocytes # (Manual) Eosinophils # (Manual) Platelet Estimate Plt Morphology Comment RBC Morphology Hypochromasia Acanthocytes (Spur) Schistocytes PT INR Sodium Potassium Chloride Carbon Dioxide Anion Gap BUN Creatinine Estim Creat Clear Calc Estimated GFR Fasting Glucose Calcium Total Bilirubin AST ALT Alkaline Phosphatase Ammonia 72 H Total Protein Albumin Microbiology Microbiology Results: Microbiology 06/20/22 17:01 Abdominal Fluid Gram Stain - Final 06/20/22 17:01 Abdominal Fluid Routine Culture - Final No growth after 2 days 06/20/22 17:01 Abdominal Fluid Anaerobic Culture - Final NO GROWTH AFTER 5 DAYS 06/20/22 15:14 Blood - Venous Blood Culture - Final No growth after 5 days. 06/20/22 15:13 Blood - Venous Blood Culture - Final No growth after 5 days. 06/20/22 Unknown Urine Catheterized - Tobar Catheter Urine Culture - Final Procedures Date of Service Date of Service: 06/27/22 Assessment & Plan Assessment and plan (1) Acute hepatic encephalopathy: Status: Acute (2) Acute kidney injury: Status: Acute Plan 57-year-old man with a history of CKD stage IIIb (BL Cr 1.6-1.9mg/dl) due to type 2 HRS (requires interval paracentesis with progressive GFR loss). He has a history of ongoing ETOH use and active daily motrin use. He presents for AMS. He is found to have decompensated etoh cirrhosis and is jaundiced. Course is now complicated by VIKAS and Acidosis. 1.Non-oliguric VIKAS on CKD CKD stage IIIb due to Type 2 HRS requiring interval paracentesis. Now with VIKAS in the setting of Hyalinuria and bland UA Normotensive This is pre-renal azotemia Now in ATN but non oliguric - Monitor venous Ammonia - No need for midodrine or octreotide - Avoid IV contrast - Bladder scans to monitor for retention 2. Low tCO2 combined MEt Acidosis with resp alkalosis DC Bicarb for now Watch and replace K Avoid hypokalemia Hypokalemia will promote ammoniagenesis 3.Severe anemia/Thrombocytopenia Time Spent With Patient Time: Total time managing care of this patient today ____ minutes. Progress Note: Quality Stroke Does the patient have a stroke diagnosis?: No
--- NOTE | 2022-06-27 13:07 | MHC.CLN ---
F/U DIET RX: F/L-APPRORPIATE PT RECEIVING ENSURE TID TO INCREASE KCALS AND PO PROTEIN FOR WOUND HEALING SUPP TO PROVIDE 1050KCALS, 60G PROTEIN MONITOR PO INTAKE AND SUPPLEMENT ACCEPTANCE FOLLOWING FOR DIET ADVANCEMENT
--- NOTE | 2022-06-27 14:37 | P.PNIM_ITS ---
Subjective Subjective Date of Service: 06/27/22 Interval History: Confused and somnolent this a.m. after paracentesis lactulose elevated Review of Systems Unable to obtain Physical Exam Vital Signs: Vital Signs: Last Vital Signs Temp 98.8 F 06/27/22 07:28 Pulse 106 H 06/27/22 13:05 Resp 16 06/27/22 07:28 BP 134/69 06/27/22 13:05 Pulse Ox 91 L 06/27/22 13:05 O2 Del Method 06/27/22 07:28 BMI result Body Mass Index 23.3 Const: Other: Confused somnolent Resp: Other: Clear to auscultation bilaterally no rales rhonchi or wheezes Cardio: Other: No S4; positive S1-S2; no S3 murmurs rubs or gallops GI: Other: Soft nontender nondistended normoactive bowel sounds Extrem: Other: No edema bilateral Objective Data Active Medications Albuterol Sulfate (Albuterol Sulfate 90 Mcg 8 Gm Inhaler) 2 puff INHALE Q4H PRN PRN Reason: Shortness Of Breath Thiamine HCl 100 mg/ Sodium (Chloride) 101 mls @ 202 mls/hr IV DAILY [facility] Last Infusion: 06/27/22 10:35 Dose: 0 mls/hr Documented By: MICHELLE Lactulose (Lactulose 20 Gm/30 Ml Solution) 40 gm PO TID [facility] Last Admin: 06/27/22 08:48 Dose: 40 gm Documented By: MICHELLE Levothyroxine Sodium (Levothyroxine Sodium 25 Mcg Tablet) 25 mcg PO DAILY@0600 [facility] Last Admin: 06/27/22 06:01 Dose: 25 mcg Documented By: PAPA Magnesium Oxide (Magnesium Oxide 400 Mg Tablet) 400 mg PO DAILY [facility] Last Admin: 06/27/22 08:53 Dose: 400 mg Documented By: MICHELLE Melatonin (Melatonin 3 Mg Tablet) 6 mg PO BEDTIME PRN PRN Reason: Insomnia Midodrine (Midodrine Hcl 5 Mg Tablet) 5 mg PO DAILY [facility] Last Admin: 06/27/22 08:50 Dose: 5 mg Documented By: MICHELLE Omeprazole (Omeprazole 40 Mg Capsule.) 40 mg PO DAILY@0630 [facility] Last Admin: 06/27/22 06:01 Dose: 40 mg Documented By: PAPA Ondansetron HCl (Ondansetron Hcl 4 Mg/2 Ml Vial) 4 mg IVPUSH Q8H PRN PRN Reason: Nausea and Vomiting Oxycodone HCl (Oxycodone Hcl Immed Release 5 Mg Tablet) 10 mg PO Q4H PRN PRN Reason: Pain, Moderate (Pain Scale 4-6 Last Admin: 06/27/22 08:53 Dose: 10 mg Documented By: MICHELLE Pharmacy Consult (Consult Rx Perform Med Rec) 1 each MISCELLANE ONCE PRN PRN Reason: Consult order Sodium Chloride (0.9 % Sodium Chloride Flush 3 Ml Syringe) 3 ml IVFLUSH QSHIFT [facility] Last Admin: 06/27/22 08:52 Dose: 3 ml Documented By: MICHELLE Labs 06/27/22 06:00 06/27/22 06:00 Labs: Laboratory Results - last 24 hr 06/27/22 06/27/22 06/27/22 06:00 06:00 06:00 MCV 90.2 MCH 31.1 MCHC 34.5 RDW 17.9 H Plt Count 76 L MPV 11.5 Immature Gran % (Auto) Cancelled Neut % (Auto) Cancelled Lymph % (Auto) Cancelled [place] % (Auto) Cancelled Eos % (Auto) Cancelled Baso % (Auto) Cancelled Lymph # (Auto) Cancelled [place] # (Auto) Cancelled Eos # (Auto) Cancelled Baso # (Auto) Cancelled Abs Immat Gran (auto) Cancelled Absolute Neuts (auto) Cancelled Absolute Nucleated RBC 0.000 Nucleated RBC % (auto) 0.0 Neutrophils % (Manual) 80 H Band Neutrophils % 6 H Lymphocytes % (Manual) 5 L Monocytes % (Manual) 6 Eosinophils % (Manual) 3 Abs Neuts (Manual) 6.2 Lymphocytes # (Manual) 0.4 L Monocytes # (Manual) 0.4 Eosinophils # (Manual) 0.2 Platelet Estimate DECREASED Plt Morphology Comment NORMAL RBC Morphology NOTED Hypochromasia 1+ (5-14) Acanthocytes (Spur) 3+ (>5) Schistocytes 1+ (0-2) PT 22.1 H INR 1.9 H Anion Gap 15 Estim Creat Clear Calc 30.6 Estimated GFR 23 Fasting Glucose 126 H Calcium 8.8 Total Bilirubin 13.9 H AST 38 H ALT 19 Alkaline Phosphatase 72 Ammonia Total Protein 5.4 L Albumin 2.5 L 06/27/22 08:00 MCV MCH MCHC RDW Plt Count MPV Immature Gran % (Auto) Neut % (Auto) Lymph % (Auto) [place] % (Auto) Eos % (Auto) Baso % (Auto) Lymph # (Auto) [place] # (Auto) Eos # (Auto) Baso # (Auto) Abs Immat Gran (auto) Absolute Neuts (auto) Absolute Nucleated RBC Nucleated RBC % (auto) Neutrophils % (Manual) Band Neutrophils % Lymphocytes % (Manual) Monocytes % (Manual) Eosinophils % (Manual) Abs Neuts (Manual) Lymphocytes # (Manual) Monocytes # (Manual) Eosinophils # (Manual) Platelet Estimate Plt Morphology Comment RBC Morphology Hypochromasia Acanthocytes (Spur) Schistocytes PT INR Anion Gap Estim Creat Clear Calc Estimated GFR Fasting Glucose Calcium Total Bilirubin AST ALT Alkaline Phosphatase Ammonia 72 H Total Protein Albumin Assessment and Plan (1) Acute hepatic encephalopathy: Status: Acute (2) Coagulopathy: Status: Acute (3) VIKAS (acute kidney injury): Status: Acute Plan 57-year-old male with pertinent history of alcohol use disorder with alcoholic cirrhosis, history of GI bleeding, hypothyroidism, mood disorder, mixed hyperlipidemia who was brought to the emergency department for evaluation of altered mentation. Now noted to be in decompensated cirrhosis .... Poor prognosis 1.Acute hepatic encephalopathy secondary to decompensated liver cirrhosis -ammonia elevated after paracentesis -continue lactulose 40 g t.i.d. -transfuse for bottles of albumin -close follow-up of albumin and ammonia ?? ? 2.Hypothyroidism -continue supplement 3.Coagulopathy -INR rise despite IV vitamin K... Vitamin K IV additional doses -recheck in a.m. 4.VIKAS onChronic kidney disease stage III -as per Renal will DC bicarb drip and follow -appreciate renal input -follow renals/divalents Pneumatics Full code Will need continued inpatient stay due to acute hepatic encephalopathy . Time Spent With Patient Time: Total time managing care of this patient today ____ minutes. Quality Stroke Does the patient have a stroke diagnosis?: No VTE Prior VTE?: No VTE Risk Level:: Medical - moderate - high VTE Device Contraindication: N/A - Device Ordered VTE Drug Contraindication: Treatment Not Indicated
[2022-06-27] MEDS: Phytonadione (Vit K1) 10 MG in 0.9 % Sodium Chloride 50 ML 51 MG IV (15:39)
--- NOTE | 2022-06-27 16:03 | MHC.CM.PN ---
per physical therapy pt will need str referrals made
--- NOTE | 2022-06-27 16:26 | P.EN_ITS ---
Event Note Date of Service: 06/27/22 Event Note: Call to bedside. Patient had large amount of coffee-ground emesis with 1 large clot approximately 7 cm x 3 cm in the emesis. One time episode patient has remained hemodynamically stable. Will type and cross, 2 units FFP, LR 150. Call placed to Dr. Kerr who will see patient.. Further treatment/intervention at his discretion. Spoke with brother Enzo (healthcare proxy) about the gravity of situation and the poor prognosis. After discussion, he wishes to c hange his code status to DNR DNI. Order will be placed Time Spent With Patient Time: Total time managing care of this patient today ____ minutes.
[2022-06-27 16:57] LABS: MANUAL DIFF FLAG NO
[2022-06-27 17:03] LABS: Basophils Percent Auto 0.3 % (0-2); Eosinophils Absolute Auto 0.1 X10*3/uL (0.0-0.4); Eosinophils Percent Auto 0.9 % (0-4); Hematocrit 22.9 % (42.0-52.0); Hemoglobin 7.9 g/dl (14.0-18.0); Imm Gran Abs Auto 0.06 X10*3/uL (0.00-0.03); Imm Gran Pct Auto 0.6 % (0.0-0.4); Lymphocytes Absolute Auto 0.7 X10*3/uL (1.2-4.9); Mean Corpuscular HGB Conc 34.5 g/dl (31.0-36.0); Mean Corpuscular Hemoglobin 31.5 pg (27.0-33.0); Mean Corpuscular Volume 91.2 fL (80.0-98.0); Mean Platelet Volume 11.6 fL (9.4-12.4); Monocytes Absolute Auto 1.2 X10*3/uL (0.1-1.2); Monocytes Percent Auto 11.8 % (2-11); Neutrophils Absolute Auto 7.7 x10*3/uL (2.0-8.3); Neutrophils Percent Auto 79.4 % (45-73); Red Blood Count 2.51 X10*6/uL (4.60-5.80); Red Cell Distribution Width 18.2 % (11.0-16.0); White Blood Count 9.7 X10*3/uL (4.8-10.8)
[2022-06-27 17:10] LABS: Platelet Count 77 X10*3/uL (160-400)
[2022-06-27] MEDS: Albumin Human 25 % 100 ML IV ×2 (17:11→20:38)
[2022-06-27] MEDS: Lactated Ringers 1,000 ML 100 ML IVCONT (17:17)
[2022-06-27 17:18] LABS: Prothrombin Time 23.2 SEC (10.0-13.1)
[2022-06-27 17:22] LABS: Alanine Aminotransferase 23 U/L (0-40); Albumin Level 2.4 g/dL (3.5-5.0); Alkaline Phosphatase 75 U/L (39-117); Anion Gap 17 (12-20); Aspartate Amino Transferase 45 U/L (5-37); Blood Urea Nitrogen 59 mg/dL (9-16); Calcium 8.9 mg/dL (8.4-10.2); Carbon Dioxide 14 mmol/L (22-29); Chloride 110 mmol/L (96-108); Creatinine Clr Calc Pharmacy 26.6; Estimated Glomerular Filt Rate 19; Glucose Fasting 248 mg/dL (60-99); Potassium 3.5 mmol/L (3.3-5.1); Sodium 137 mmol/L (135-145); Total Protein 5.5 g/dL (6.5-8.0)
--- NOTE | 2022-06-27 19:10 | PM.GIPN ---
Subjective Subjective Date of Service: 06/27/22 Interval History: History has been obtained from Dr. Fuentes, his nurse, and his family who are present at the bedside including his mother, brother, and ex-. The patient had a couple episodes of hematemesis with fresh blood and blood clots earlier this afternoon. He has had no further bleeding over the past 2 hours or so. His mental status has been somewhat lethargic. There has been no melena nor hematochezia. He does have a distended abdomen despite a paracentesis earlier today. His CODE STATUS has been changed to DNR/DNI. The family tells me that they just want to keep him comfortable at this point. Critical Care Time (minutes): 0 Physical Exam Vital Signs: Vital Signs: Last Vital Signs Temp 98.8 F 06/27/22 15:30 Pulse 98 06/27/22 15:30 Resp 19 06/27/22 15:30 BP 115/64 06/27/22 15:30 Pulse Ox 91 L 06/27/22 15:30 O2 Del Method 06/27/22 15:30 BMI result Body Mass Index 23.3 Const: General: comfortable, no acute distress, confusion, ill appearing and lethargic Orientation/consciousness: confusion and lethargic Eyes: Other: Icteric sclerae GI: Other: Abdomen is distended with ascites with some mild diffuse tenderness, but is somewhat soft. Neuro: General: confusion Objective Data Labs 06/27/22 16:52 06/27/22 16:52 Labs: Laboratory Results - last 24 hr 06/27/22 06/27/22 06/27/22 06:00 06:00 06:00 WBC 7.2 RBC 2.54 L Hgb 7.9 L Hct 22.9 L MCV 90.2 MCH 31.1 MCHC 34.5 RDW 17.9 H Plt Count 76 L MPV 11.5 Immature Gran % (Auto) Cancelled Neut % (Auto) Cancelled Lymph % (Auto) Cancelled Calloway % (Auto) Cancelled Eos % (Auto) Cancelled Baso % (Auto) Cancelled Lymph # (Auto) Cancelled Calloway # (Auto) Cancelled Eos # (Auto) Cancelled Baso # (Auto) Cancelled Abs Immat Gran (auto) Cancelled Absolute Neuts (auto) Cancelled Absolute Nucleated RBC 0.000 Nucleated RBC % (auto) 0.0 Neutrophils % (Manual) 80 H Band Neutrophils % 6 H Lymphocytes % (Manual) 5 L Monocytes % (Manual) 6 Eosinophils % (Manual) 3 Abs Neuts (Manual) 6.2 Lymphocytes # (Manual) 0.4 L Monocytes # (Manual) 0.4 Eosinophils # (Manual) 0.2 Platelet Estimate DECREASED Plt Morphology Comment NORMAL RBC Morphology NOTED Hypochromasia 1+ (5-14) Acanthocytes (Spur) 3+ (>5) Schistocytes 1+ (0-2) PT 22.1 H INR 1.9 H Sodium 134 L Potassium 3.4 Chloride 108 Carbon Dioxide 14 L Anion Gap 15 BUN 52 H Creatinine 2.88 H Estim Creat Clear Calc 30.6 Estimated GFR 23 Fasting Glucose 126 H Calcium 8.8 Total Bilirubin 13.9 H AST 38 H ALT 19 Alkaline Phosphatase 72 Ammonia Total Protein 5.4 L Albumin 2.5 L 06/27/22 06/27/22 06/27/22 08:00 16:52 16:52 WBC 9.7 RBC 2.51 L Hgb 7.9 L Hct 22.9 L MCV 91.2 MCH 31.5 MCHC 34.5 RDW 18.2 H Plt Count 77 L MPV 11.6 Immature Gran % (Auto) 0.6 H Neut % (Auto) 79.4 H Lymph % (Auto) 7.0 L Calloway % (Auto) 11.8 H Eos % (Auto) 0.9 Baso % (Auto) 0.3 Lymph # (Auto) 0.7 L Calloway # (Auto) 1.2 Eos # (Auto) 0.1 Baso # (Auto) 0.0 Abs Immat Gran (auto) 0.06 H Absolute Neuts (auto) 7.7 Absolute Nucleated RBC 0.000 Nucleated RBC % (auto) 0.0 Neutrophils % (Manual) Band Neutrophils % Lymphocytes % (Manual) Monocytes % (Manual) Eosinophils % (Manual) Abs Neuts (Manual) Lymphocytes # (Manual) Monocytes # (Manual) Eosinophils # (Manual) Platelet Estimate Plt Morphology Comment RBC Morphology Hypochromasia Acanthocytes (Spur) Schistocytes PT 23.2 H INR 2.0 H Sodium Potassium Chloride Carbon Dioxide Anion Gap BUN Creatinine Estim Creat Clear Calc Estimated GFR Fasting Glucose Calcium Total Bilirubin AST ALT Alkaline Phosphatase Ammonia 72 H Total Protein Albumin 06/27/22 16:52 WBC RBC Hgb Hct MCV MCH MCHC RDW Plt Count MPV Immature Gran % (Auto) Neut % (Auto) Lymph % (Auto) Calloway % (Auto) Eos % (Auto) Baso % (Auto) Lymph # (Auto) Calloway # (Auto) Eos # (Auto) Baso # (Auto) Abs Immat Gran (auto) Absolute Neuts (auto) Absolute Nucleated RBC Nucleated RBC % (auto) Neutrophils % (Manual) Band Neutrophils % Lymphocytes % (Manual) Monocytes % (Manual) Eosinophils % (Manual) Abs Neuts (Manual) Lymphocytes # (Manual) Monocytes # (Manual) Eosinophils # (Manual) Platelet Estimate Plt Morphology Comment RBC Morphology Hypochromasia Acanthocytes (Spur) Schistocytes PT INR Sodium 137 Potassium 3.5 Chloride 110 H Carbon Dioxide 14 L Anion Gap 17 BUN 59 H Creatinine 3.32 H Estim Creat Clear Calc 26.6 Estimated GFR 19 Fasting Glucose 248 H Calcium 8.9 Total Bilirubin 14.0 H AST 45 H ALT 23 Alkaline Phosphatase 75 Ammonia Total Protein 5.5 L Albumin 2.4 L Microbiology Microbiology Results: Microbiology 06/20/22 17:01 Abdominal Fluid Gram Stain - Final 06/20/22 17:01 Abdominal Fluid Routine Culture - Final No growth after 2 days 06/20/22 17:01 Abdominal Fluid Anaerobic Culture - Final NO GROWTH AFTER 5 DAYS 06/20/22 15:14 Blood - Venous Blood Culture - Final No growth after 5 days. 06/20/22 15:13 Blood - Venous Blood Culture - Final No growth after 5 days. 06/20/22 Unknown Urine Catheterized - Tobar Catheter Urine Culture - Final Procedures Date of Service Date of Service: 06/27/22 Progress Note: A&P Assessment and plan (1) Cirrhosis of liver: Status: Acute Assessment and Plan: Imp/Recs: The patient continues to deteriorate from a clinical standpoint with worsening liver function with associated jaundice,coagulopathy, and thrombocytopenia, as well as with worsening renal function, reaccumulating ascites,and encephalopathy. He has now had an episode of hematemesis most likely related to his known esophageal varices. As such, I had a detailed discussion with the patient's family at the bedside regarding the possibility of upper endoscopy. I advised them while endoscopy is an option with potential for banding of varices, we also reviewed that this will not really change his clinical course in the short-term in regard to his progressive liver and other organ failure. As such, the family would like to simply keep him comfortable and would rather hold off on any invasive procedures. I did review with them that we can continue to treat him with some medication and transfusions for the time being. As such, in addition to the FFP that is already ordered, I shall also put him on a Sandostatin infusion after a Sandostatin bolus. I told the family that I would certainly agree with the approach of keeping him comfortable otherwise at this point. The family understood and were comfortable with this plan. I discussed this with Dr. Sin as well. Thanks. (2) Coagulopathy: Status: Acute (3) Hepatic encephalopathy: Status: Acute (4) Ascites: Status: Acute (5) Jaundice: Status: Acute (6) Hematemesis: Status: Acute (7) Esophageal varices: Status: Acute Time Spent With Patient Time: Total time managing care of this patient today ____ minutes. Quality Stroke Does the patient have a stroke diagnosis?: No VTE Prior VTE?: No VTE Risk Level:: Medical - moderate - high VTE Device Contraindication: N/A - Device Ordered VTE Drug Contraindication: Treatment Not Indicated
--- NOTE | 2022-06-27 20:00 | PC.NURSE ---
Addendum entered by Sandra Stacy RN 06/28/22 06:42: Pt once again with coffee ground emesis and continues to pass the dark liquid stools. MD Knight notified and ordered stat labs. Vitals 106/67. RR 20. 95% on 2L n/c, 98.2 temporal, HR 103. Pt status post 2 units FFP. Original Note: 1999: Pt A&OX 1, lethargic. Pt with coffee ground emesis, Mouth suctioned. notified and family at bedside. HOB elevated. Pt was satting about 90% on ra. 2L n/c applied. FFP infusing.
[2022-06-27] MEDS: Octreotide Acetate 500 MCG in 0.9 % Sodium Chloride 500 ML 50.1 MCG IVCONT (22:10)
[2022-06-28] VITALS (9 sets, daily range): BP systolic 106–131; BP diastolic 67–88; PULSE 84–106; RESP 10–21; TEMP 36.6–37; O2SAT 88–98
[2022-06-28] MEDS: Albumin Human 25 % 100 ML IV ×2 (01:44→11:19)
[2022-06-28] MEDS: Lactated Ringers 1,000 ML 100 ML IVCONT ×2 (02:44→12:24)
[2022-06-28] MEDS: Octreotide Acetate 500 MCG in 0.9 % Sodium Chloride 500 ML 50.1 MCG IVCONT (06:09)
[2022-06-28 06:49] LABS: INTERNATIONAL NORM RATIO 1.9 (0.9-1.1); Prothrombin Time 22.9 SEC (10.0-13.1)
[2022-06-28 06:56] LABS: Basophils Percent Auto 0.1 % (0-2); Eosinophils Absolute Auto 0.2 X10*3/uL (0.0-0.4); Eosinophils Percent Auto 2.5 % (0-4); Imm Gran Abs Auto 0.27 X10*3/uL (0.00-0.03); Imm Gran Pct Auto 3.1 % (0.0-0.4); Lymphocytes Absolute Auto 0.8 X10*3/uL (1.2-4.9); Lymphocytes Percent Auto 9.7 % (20-40); MANUAL DIFF FLAG SCAN; Mean Corpuscular HGB Conc 34.8 g/dl (31.0-36.0); Mean Corpuscular Hemoglobin 31.9 pg (27.0-33.0); Mean Corpuscular Volume 91.7 fL (80.0-98.0); Mean Platelet Volume 10.8 fL (9.4-12.4); Monocytes Absolute Auto 1.6 X10*3/uL (0.1-1.2); Monocytes Percent Auto 18.7 % (2-11); NRBC Pct Auto 0.2 /100WBC (0.0-0.2); Neutrophils Absolute Auto 5.7 x10*3/uL (2.0-8.3); Neutrophils Percent Auto 65.9 % (45-73); Red Blood Count 2.04 X10*6/uL (4.60-5.80); Red Cell Distribution Width 18.3 % (11.0-16.0); SCAN SMEAR FLAG 1; White Blood Count 8.7 X10*3/uL (4.8-10.8)
[2022-06-28 07:33] LABS: Alanine Aminotransferase 21 U/L (0-40); Albumin Level 3.2 g/dL (3.5-5.0); Alkaline Phosphatase 62 U/L (39-117); Anion Gap 17 (12-20); Aspartate Amino Transferase 36 U/L (5-37); Bilirubin Total 12.6 mg/dL (0.0-1.0); Blood Urea Nitrogen 72 mg/dL (9-16); Calcium 9.3 mg/dL (8.4-10.2); Carbon Dioxide 14 mmol/L (22-29); Chloride 112 mmol/L (96-108); Creatinine Clr Calc Pharmacy 27.7; Estimated Glomerular Filt Rate 20; Glucose Fasting 136 mg/dL (60-99); Potassium 3.2 mmol/L (3.3-5.1); Sodium 140 mmol/L (135-145); Total Protein 5.7 g/dL (6.5-8.0)
[2022-06-28 07:42] LABS: Hematocrit 18.7 % (42.0-52.0); Hemoglobin 6.5 g/dl (14.0-18.0); Platelet Count 56 X10*3/uL (160-400)
[2022-06-28 07:55] LABS: SLIDE REVIEW VERIFIED
--- NOTE | 2022-06-28 09:52 | MHC.CM.PN ---
Per Dr. 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 CM will follow.
[2022-06-28] MEDS: Thiamine HCL 100 MG in 0.9 % Sodium Chloride 100 ML 202 MG IV (10:22)
[2022-06-28] MEDS: 0.9 % Sodium Chloride Flush 3 ML SYRINGE IVFLUSH (10:28)
[2022-06-28] MEDS: Morphine Sulfate 4 MG/ML CARTRIDGE IVPUSH ×3 (11:13→20:29)
--- NOTE | 2022-06-28 12:54 | HO.PM.IMPN ---
Subjective Subjective Date of Service: 06/28/22 Interval History: Events of last 24 hours noted. Considerable decline in overall status. GI notes reviewed. 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 Review of Systems Unable to obtain Neurologic Neurologic: Reports confusion Psychiatric Psychiatric: Reports confusion Physical Exam Vital Signs: Vital Signs: Last Vital Signs Temp 97.9 F 06/28/22 07:24 Pulse 106 H 06/28/22 07:24 Resp 18 06/28/22 07:24 BP 131/88 06/28/22 07:24 Pulse Ox 88 L 06/28/22 07:24 O2 Del Method 06/28/22 07:24 O2 Flow Rate 2 06/28/22 07:24 BMI result Body Mass Index 23.3 Const: Other: Confused somnolent General: confusion Orientation/consciousness: confusion Resp: Other: Clear to auscultation bilaterally no rales rhonchi or wheezes Cardio: Other: No S4; positive S1-S2; no S3 murmurs rubs or gallops GI: Other: Soft nontender nondistended normoactive bowel sounds Neuro: General: confusion Extrem: Other: No edema bilateral Objective Data Active Medications Albuterol Sulfate (Albuterol Sulfate 90 Mcg 8 Gm Inhaler) 2 puff INHALE Q4H PRN PRN Reason: Shortness Of Breath Thiamine HCl 100 mg/ Sodium (Chloride) 101 mls @ 202 mls/hr IV DAILY [facility] Last Infusion: 06/28/22 12:24 Dose: 0 mls/hr Documented By: MICHELLE Lactated Ringer's (Lr) 1,000 mls @ 100 mls/hr IVCONT .Q10H [facility] Last Admin: 06/28/22 12:24 Dose: 100 mls/hr Documented By: MICHELLE Octreotide Acetate 500 mcg/ (Sodium Chloride) 501 mls @ 50.1 mls/hr IVCONT .Q10H [facility] Last Admin: 06/28/22 06:09 Dose: 50 mcg/hr, 50.1 mls/hr Documented By: ADOLFO Lactulose (Lactulose 20 Gm/30 Ml Solution) 40 gm PO TID [facility] Last Admin: 06/28/22 09:54 Dose: Not Given Documented By: MICHELLE Non-Admin Reason: Ok to hold per Dr. CORONEL Levothyroxine Sodium (Levothyroxine Sodium 25 Mcg Tablet) 25 mcg PO DAILY@0600 [facility] Last Admin: 06/28/22 06:09 Dose: Not Given Documented By: ADOLFO Non-Admin Reason: NPO Magnesium Oxide (Magnesium Oxide 400 Mg Tablet) 400 mg PO DAILY [facility] Last Admin: 06/28/22 09:54 Dose: Not Given Documented By: MICHELLE Non-Admin Reason: Ok to hold per Dr. CORONEL Melatonin (Melatonin 3 Mg Tablet) 6 mg PO BEDTIME PRN PRN Reason: Insomnia Midodrine (Midodrine Hcl 5 Mg Tablet) 5 mg PO DAILY [facility] Last Admin: 06/28/22 09:54 Dose: Not Given Documented By: MICHELLE Non-Admin Reason: Ok to hold per Dr. CORONEL Morphine Sulfate (Morphine Sulfate 4 Mg/Ml Cartridge) 4 mg IVPUSH Q2H PRN; Protocol PRN Reason: anxiety/restlessness Last Admin: 06/28/22 11:13 Dose: 4 mg Documented By: MICHELLE Omeprazole (Omeprazole 40 Mg Capsule.) 40 mg PO DAILY@0630 [facility] Last Admin: 06/28/22 06:10 Dose: Not Given Documented By: ADOLFO Non-Admin Reason: NPO Ondansetron HCl (Ondansetron Hcl 4 Mg/2 Ml Vial) 4 mg IVPUSH Q8H PRN PRN Reason: Nausea and Vomiting Oxycodone HCl (Oxycodone Hcl Immed Release 5 Mg Tablet) 10 mg PO Q4H PRN PRN Reason: Pain, Moderate (Pain Scale 4-6 Last Admin: 06/27/22 08:53 Dose: 10 mg Documented By: MICHELLE Pharmacy Consult (Consult Rx Perform Med Rec) 1 each MISCELLANE ONCE PRN PRN Reason: Consult order Sodium Chloride (0.9 % Sodium Chloride Flush 3 Ml Syringe) 3 ml IVFLUSH QSHIFT [facility] Last Admin: 06/28/22 10:28 Dose: 3 ml Documented By: MICHELLE Labs 06/28/22 06:28 06/28/22 06:28 Labs: Laboratory Results - last 24 hr 06/25/22 06/27/22 06/27/22 09:37 16:52 16:52 MCV 91.2 MCH 31.5 MCHC 34.5 RDW 18.2 H Plt Count 77 L MPV 11.6 Immature Gran % (Auto) 0.6 H Neut % (Auto) 79.4 H Lymph % (Auto) 7.0 L Daniels % (Auto) 11.8 H Eos % (Auto) 0.9 Baso % (Auto) 0.3 Lymph # (Auto) 0.7 L Daniels # (Auto) 1.2 Eos # (Auto) 0.1 Baso # (Auto) 0.0 Abs Immat Gran (auto) 0.06 H Absolute Neuts (auto) 7.7 Absolute Nucleated RBC 0.000 Nucleated RBC % (auto) 0.0 Smear Tech's Comments PT 23.2 H INR 2.0 H Anion Gap Estim Creat Clear Calc Estimated GFR Fasting Glucose Calcium Total Bilirubin AST ALT Alkaline Phosphatase Total Protein Albumin Blood Type O Positive Antibody Screen NEGATIVE Crossmatch See Detail 06/27/22 06/28/22 06/28/22 16:52 06:28 06:28 MCV 91.7 MCH 31.9 MCHC 34.8 RDW 18.3 H Plt Count 56 L D MPV 10.8 Immature Gran % (Auto) 3.1 H Neut % (Auto) 65.9 Lymph % (Auto) 9.7 L Daniels % (Auto) 18.7 H Eos % (Auto) 2.5 Baso % (Auto) 0.1 Lymph # (Auto) 0.8 L Daniels # (Auto) 1.6 H Eos # (Auto) 0.2 Baso # (Auto) 0.0 Abs Immat Gran (auto) 0.27 H Absolute Neuts (auto) 5.7 Absolute Nucleated RBC 0.020 H Nucleated RBC % (auto) 0.2 Smear Tech's Comments VERIFIED PT 22.9 H INR 1.9 H Anion Gap 17 Estim Creat Clear Calc 26.6 Estimated GFR 19 Fasting Glucose 248 H Calcium 8.9 Total Bilirubin 14.0 H AST 45 H ALT 23 Alkaline Phosphatase 75 Total Protein 5.5 L Albumin 2.4 L Blood Type Antibody Screen Crossmatch 06/28/22 06:28 MCV MCH MCHC RDW Plt Count MPV Immature Gran % (Auto) Neut % (Auto) Lymph % (Auto) Daniels % (Auto) Eos % (Auto) Baso % (Auto) Lymph # (Auto) Daniels # (Auto) Eos # (Auto) Baso # (Auto) Abs Immat Gran (auto) Absolute Neuts (auto) Absolute Nucleated RBC Nucleated RBC % (auto) Smear Tech's Comments PT INR Anion Gap 17 Estim Creat Clear Calc 27.7 Estimated GFR 20 Fasting Glucose 136 H Calcium 9.3 Total Bilirubin 12.6 H AST 36 ALT 21 Alkaline Phosphatase 62 Total Protein 5.7 L Albumin 3.2 L Blood Type Antibody Screen Crossmatch Assessment and Plan (1) Acute hepatic encephalopathy: Status: Acute Plan 57-year-old male with pertinent history of alcohol use disorder with alcoholic cirrhosis, history of GI bleeding, hypothyroidism, mood disorder, mixed hyperlipidemia who was brought to the emergency department for evaluation of altered mentation. Now noted to be in decompensated cirrhosis .... Poor prognosis 1.Acute hepatic encephalopathy secondary to decompensated liver cirrhosis Episode of vomiting large clots last evening; appreciate GI input. 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 ? Will need continued inpatient stay due to acute hepatic encephalopathy . Time Spent With Patient Time: Total time managing care of this patient today ____ minutes. Quality Stroke Does the patient have a stroke diagnosis?: No VTE Prior VTE?: No VTE Risk Level:: Medical - moderate - high VTE Device Contraindication: N/A - Device Ordered VTE Drug Contraindication: Treatment Not Indicated
[2022-06-29 03:27] VITALS: PULSE 88; RESP 12; TEMP 36.8
[2022-06-29 08:00] VITALS: PULSE 102; RESP 19; O2SAT 96
[2022-06-29] MEDS: Morphine Sulfate 4 MG/ML CARTRIDGE IVPUSH ×3 (09:52→17:15)
--- NOTE | 2022-06-29 11:07 | MHC.CLN ---
F/U PT IS NOW RELAY ADJUSTER DIET RX: F/L PT RECEIVING ENSURE TID TO INCREASE KCALS -CAN D/C IF NEEDED IN ADDITION; DIET CAN BE CHANGED TO FEED FROM FLOOR R/T RELAY ADJUSTER PRIMARY GOAL IS COMFORT WILL FOLLOW WITH TEAM AND PROVIDE SUPPORT NEEDED
[2022-06-29 12:00] VITALS: PULSE 102; RESP 18; O2SAT 97
--- NOTE | 2022-06-29 14:00 | P.PNIM_ITS ---
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 Kerr, but family including patient's brother Enzo healthcare proxy Declined further intervention and treatment and preferred comfort measures. No events overnight, reason resting comfortably. Review of Systems Review of Systems: Yes Unobtainable due to mental status Physical Exam 2 Vital Signs: Vital Signs: Last Vital Signs Temp 98.2 F 06/29/22 03:27 Pulse 102 H 06/29/22 12:00 Resp 18 06/29/22 12:00 BP 131/88 06/28/22 07:24 Pulse Ox 97 06/29/22 12:00 O2 Del Method 06/29/22 12:00 O2 Flow Rate 2 06/29/22 12:00 BMI result Body Mass Index 23.3 Const: Other: General resting comfortably in no acute distress no moaning, no grunting. Neck no JVD. CVS regular rate rhythm, Respiratory lungs clear to auscultation, no respiratory distress Skin jaundiced Objective Data Active Medications Morphine Sulfate (Morphine Sulfate 4 Mg/Ml Cartridge) 4 mg IVPUSH Q2H PRN; Protocol PRN Reason: anxiety/restlessness Last Admin: 06/29/22 09:52 Dose: 4 mg Documented By: YG Pharmacy Consult (Consult Rx Perform Med Rec) 1 each MISCELLANE ONCE PRN PRN Reason: Consult order Labs 06/28/22 06:28 06/28/22 06:28 Assessment and Plan (1) Comfort measures only status: Status: Acute Plan 57-year-old male with pertinent history of alcohol use disorder with alcoholic cirrhosis, history of GI bleeding, hypothyroidism, mood disorder, mixed hyperl ipidemia who was brought to the emergency department for evaluation of altered mentation, noted to be in decompensated cirrhosis 1.Acute hepatic encephalopathy secondary to decompensated liver cirrhosis 2. Upper GI bleed with episodes of vomiting and large clots/acute blood loss anemia 3. VIKAS on chronic kidney disease 4. Coagulopathy Continue comfort measures with IV morphine, will add Ativan prn iv for restlessness and anxiety. Patient need continued inpatient hospitalization for comfort measures on IV morphine and iv Ativan. Time Spent With Patient Time: Total time managing care of this patient today ____ minutes. Quality Stroke Does the patient have a stroke diagnosis?: No VTE Prior VTE?: No VTE Risk Level:: Medical - moderate - high VTE Device Contraindication: N/A - Device Ordered VTE Drug Contraindication: Treatment Not Indicated
[2022-06-29 14:17] VITALS: RESP 18
--- NOTE | 2022-06-29 15:33 | MHC.CM.PN ---
per rounds bed search on going ,pt ready for dc
[2022-06-30 00:27] VITALS: RESP 38
[2022-06-30] MEDS: Morphine Sulfate 4 MG/ML CARTRIDGE IVPUSH ×9 (00:27→15:05)
[2022-06-30 03:22] VITALS: RESP 32
[2022-06-30 05:22] VITALS: RESP 30
--- NOTE | 2022-06-30 09:43 | HO.PM.IMPN ---
Subjective Subjective Date of Service: 06/30/22 Interval History: Unresponsive resting in bed in no distress. Review of Systems Review of Systems: Yes Unobtainable due to mental status Physical Exam Vital Signs: Vital Signs: Last Vital Signs Temp 98.2 F 06/29/22 03:27 Pulse 102 H 06/29/22 12:00 Resp 30 H 06/30/22 05:22 BP 131/88 06/28/22 07:24 Pulse Ox 97 06/29/22 12:00 O2 Del Method 06/29/22 12:00 O2 Flow Rate 2 06/29/22 12:00 BMI result Body Mass Index 23.3 Const: Other: General somnolent, tachypneic Eyes open icteric sclera Neck? no JVD. CVS? regular rate rhythm, Respiratory tachypneic, coarse breath sound Skin jaundiced Objective Data Active Medications Lorazepam (Lorazepam 2 Mg/Ml Vial) 1 mg IVPUSH Q4H PRN PRN Reason: Restlessness Morphine Sulfate (Morphine Sulfate 4 Mg/Ml Cartridge) 4 mg IVPUSH Q1H PRN; Protocol PRN Reason: anxiety/restlessness Last Admin: 06/30/22 09:04 Dose: 4 mg Documented By: MICHELLE Labs 06/28/22 06:28 06/28/22 06:28 Assessment and Plan (1) Comfort measures only status: Status: Acute Plan 57-year-old male with pertinent history of alcohol use disorder with alcoholic cirrhosis, history of GI bleeding, hypothyroidism, mood disorder, mixed hyperlipidemia who was brought to the emergency department for evaluation of altered mentation, noted to be in decompensated cirrhosis 1.Acute hepatic encephalopathy secondary to decompensated liver cirrhosis 2. Upper GI bleed with episodes of vomiting and large clots/acute blood loss anemia 3. VIKAS on chronic kidney disease 4. Coagulopathy Continue comfort measures with IV morphine, iv Ativan prn for restlessness and anxiety, will add scopolamine patch. Patient need continued inpatient hospitalization for comfort measures on IV morphine and iv Ativan. Time Spent With Patient Time: Total time managing care of this patient today ____ minutes. Quality Stroke Does the patient have a stroke diagnosis?: No VTE Prior VTE?: No VTE Risk Level:: Medical - moderate - high VTE Device Contraindication: N/A - Device Ordered VTE Drug Contraindication: Treatment Not Indicated
[2022-06-30] MEDS: Scopolamine 1.5 MG PATCH.TD.3 EAR-BEHIND (10:22)
--- NOTE | 2022-06-30 16:57 | PC.NURSE ---
Pt at 1600. Dr. Alfonso at bedside to pronounce time of . Certification completed by Dr. Alfonso. health proxy notified. family at bedside during time of . [facility] donation notified; they will accept. See Worklist for interventions. Post mortem care complete. Pt transported to the [facility] via transport.
--- NOTE | 2022-07-02 15:34 | P.DS_ITS ---
DS: Providers Provider Date of Service: 06/30/22 Date of admission: 06/20/22 19:41 Primary care physician: Fernando Martin MD DS: Diagnosis Discharge Diagnosis (1) Comfort measures only status: Status: Acute DS: Summary Hospital Course Hospital Course: Date of Service: 06/20/22 Chief Complaint: Altered mentation This is a 57-year-old male with pertinent history of alcohol use disorder with alcoholic cirrhosis, history of GI bleeding, hypothyroidism, mood disorder, mi xed hyperlipidemia who was brought to the emergency department for evaluation of altered mentation.? Patient is obtunded and very drowsy.? Unable to provide a history.? History is obtained from chart review and ER provider.? Patient was sent to by EMS as noted that he was very lethargic and not speaking.? Unable to obtain review of systems Hospital course 57-year-old male with pertinent history of alcohol use disorder with alcoholic cirrhosis, history of GI bleeding, hypothyroidism, mood disorder, mixed hyperlipidemia who was brought to the emergency department for evaluation of altered mentation, noted to be in decompensated cirrhosis, with acute hepatic encephalopathy, coagulopathy, patient underwent paracentesis, ascitic fluid was not consistent with SBP, no infection was found UTI was normal, chest x-ray, CT abdomen and pelvis, CT head was unremarkable, patient was treated aggressively with iv fluids, lactulose, subsequently noted to have upper GI bleed with episodes of vomiting large clots and noted to have acute blood loss anemia, renal function worsened family opted for comfort care therefore all medications were discontinued and patient was treated with IV morphine, IV Ativan and scopolamine patch patient passed peacefully on June 30 at 16:00 and noted to have fixed dilated pupils, no pulse, no respirations family at bedside Cause of 1. decompensated liver cirrhosis 2. Upper GI bleed with episodes of vomiting and large clots/acute blood loss anemia 3. VIKAS on chronic kidney disease 4. Coagulopathy Time Spent with Patient Time attestation: Total time managing care of this patient today ____ minutes. Discharge coordination time: Greater than 30 minutes Quality: Safe Use of Opioids Does Pt have an Active Cancer Diagnosis on the Problem List?: No Quality: Stroke Does the patient have a stroke diagnosis?: No Physical Exam Vital Signs: Vital Signs: Last Vital Signs Temp 98.2 F 06/29/22 03:27 Pulse 102 H 06/29/22 12:00 Resp 30 H 06/30/22 05:22 BP 131/88 06/28/22 07:24 Pulse Ox 97 06/29/22 12:00 O2 Del Method 06/29/22 12:00 O2 Flow Rate 2 06/29/22 12:00 BMI result Body Mass Index 23.3 DS: Data Data Completed and Pending Completed studies during hospitalization [Text1]: Procedures Detoxification Services for Substance Abuse Treatment (03/05/22) Drainage of Peritoneal Cavity, Percutaneous Approach (03/05/22) Inspection of Upper Intestinal Tract, Via Natural or Artificial Opening Endoscopic (07/25/21) Transfusion of Nonautologous Red Blood Cells into Peripheral Vein, Percutaneous Approach (03/05/22) Discharge Plan Discharge Date/Time: 06/30/22 16:00 Patient Disposition: Discharge Diagnosis: Cause of ; decompensated cirrhosis Referrals: Fernando Martin MD [Primary Care Provider] - 1 Week Discharge Medications: No Action furosemide 40 mg Tablet 40 mg PO DAILY Qty: 30 0RF Hold Instructions: Resume on 03/19/22. Protocol: Hold for SBP< HOLD for SBP < : 90 pantoprazole 40 mg Tablet,Delayed Release (Dr/Ec) 40 mg PO DAILY albuterol sulfate 90 mcg/actuation Hfa Aerosol Inhaler 2 puff INHALATION Q4-6H PRN (Reason: Shortness Of Breath) potassium chloride [K-Tab] 20 mEq tablet extended release 20 meq PO DAILY Qty: 30 0RF escitalopram oxalate 20 mg Tablet 20 mg PO DAILY folic acid 1 mg Tablet 1 mg PO DAILY levothyroxine 25 mcg tablet 1 tab PO DAILY zinc sulfate [Zinc-220] 50 mg zinc (220 mg) Capsule 220 mg PO BID Qty: 60 0RF Xifaxan 550 mg Tablet 550 mg PO BID Qty: 60 0RF midodrine 5 mg tablet 5 mg PO DAILY multivitamin Tablet 1 tab PO DAILY atorvastatin 10 mg tablet 1 tab PO DAILY cyanocobalamin (vitamin B-12) 1,000 mcg Tablet 1,000 mcg PO DAILY thiamine HCl (vitamin B1) 100 mg Tablet 100 mg PO DAILY magnesium oxide 400 mg (241.3 mg magnesium) tablet 1 tab PO DAILY pyridoxine (vitamin B6) 100 mg Tablet 100 mg PO DAILY Discharge Date/Time: 06/30/22 17:06
[2022-07-03 09:27] LABS: VBG HCO3 13 mmol/L (22-26); VBG pCO2 25 mmHg; VBG pH 7.31 (7.32-7.43); VBG pO2 90 mmHg
== END 2022-06-30 17:06 | disposition expired | DRG 280 ==
LOC: HO.ED 19:28 → HO.EDOVER 19:47 → HO.IMC 06-21 07:45
PROVIDERS: Hospitalist; Internal Medicine; Internal Medicine Hypertension Specialist; Radiology Diagnostic Radiology; Admitting Provider Student in an Organized Health Care Education/Training Program; Emergency Provider Emergency Medicine; PCP Internal Medicine; Visit Provider Hospitalist
PROC: 0W9G3ZZ Drainage of Peritoneal Cavity, Percutaneous Approach (ICD-10-PCS; principal; 2022-06-20 16:30)
DX: K70.31 Alcoholic cirrhosis of liver with ascites (principal); K70.11 Alcoholic hepatitis with ascites; I85.11 Secondary esophageal varices with bleeding; N17.9 Acute kidney failure, unspecified; D68.4 Acquired coagulation factor deficiency; E87.21 Acute metabolic acidosis; D62 Acute posthemorrhagic anemia; D63.1 Anemia in chronic kidney disease; K76.82 Hepatic encephalopathy; D69.59 Other secondary thrombocytopenia; E03.9 Hypothyroidism, unspecified; F10.11 Alcohol abuse, in remission; Z66 Do not resuscitate; N18.32 Chronic kidney disease, stage 3b; Z51.5 Encounter for palliative care; J45.20 Mild intermittent asthma, uncomplicated; E87.5 Hyperkalemia; E78.2 Mixed hyperlipidemia; E86.0 Dehydration; F39 Unspecified mood [affective] disorder; Z20.822 Contact with and (suspected) exposure to COVID-19; Z86.711 Personal history of pulmonary embolism; Z79.890 Hormone replacement therapy; Z79.899 Other long term (current) drug therapy
CPT/HCPCS: 36415; 36600; 49083; 70450; 71045; 74176; 80048; 80053; 80076; 80307; 81001; 82077; 82140; 82272; 82803; 83605; 83690; 83880; 84443; 84484; 85007; 85025; 85027; 85379; 85610; 86850; 86900; 86901; 86923; 87040; 87070; 87073; 87086; 87205; 87635; 89051; 93005; 97163; 99285; J2060; J2270; J2354; J2543; J3371; J3411; J3430; P9016; P9017; P9047